=== PATIENT | male | born 1970 | race Caucasian/White ===

== ENCOUNTER 2020-03-17 14:27 | Emergency (ER) | payer OTHER, SELFPAY ==
[2020-03-17 15:14] VITALS: BP 120/78; PULSE 88; RESP 18; TEMP 37.4; O2SAT 98; BMI 31.5
--- NOTE | 2020-03-17 16:18 | PC.NURSE ---
covid swab performed
--- NOTE | 2020-03-17 16:22 | ED_ITS ---
HPI - General Adult General Chief complaint: General Medical Stated complaint: flu symptoms Time Seen by Provider: 03/17/20 15:18 Source: patient Mode of arrival: ambulatory History of Present Illness HPI narrative: 49-year-old male with a past medical history of anxiety, arthritis, depression, DM, hyperlipidemia, HTN presenting to the ED complaining of myalgias/fatigue, chills, and mild headache x a couple days. Reports was in contact with COVID-19 positive friend. Denies cough, fever, chest pain, shortness of breath, recent travel Onset (ago): day(s) Related Data Allergies Allergy/AdvReac Type Severity Reaction Status Date / Time No Known Allergies Allergy Unverified 11/05/19 19:00 [No Known Allergies*] Review of Systems Review of Systems: Constitutional: No Weight loss, No Fever, + Chills, +fatigue ENT/Mouth: No Sinus Pain, No Hoarseness, No sore throat, No Swallowing Difficulty Cardiovascular: No Chest Pain, No SOB Respiratory: No Cough, No Sputum, No Wheezing Gastrointestinal: No Nausea, No Vomiting, No Diarrhea, No Abdominal pain Musculoskeletal: No joint pain, + Myalgias, No Joint Swelling Skin: No Skin Lesions, No rash Yes all other systems are reviewed and are negative PMFSH Past Medical History Attestation statement: The following information was validated with the patient. Medical History (Updated 03/17/20 @ 16:51 by MOIHNI Baptiste) Anxiety Arthritis Depression Diabetes High cholesterol High cholesterol HTN (hypertension) Surgical History (Updated 03/17/20 @ 15:17 by Chacha Rush) History of appendectomy Social History Social History Alcohol intake: never Smoking Status: Current every day smoker Use of substances other than those prescribed or required for medical reasons: No Advance Directives: No Advance Directives Information Provided: Yes Physical Exam Vital Signs: Vital Signs: Last Vital Signs Temp 99.4 F 03/17/20 15:14 Pulse 88 03/17/20 15:14 Resp 18 03/17/20 15:14 BP 120/78 03/17/20 15:14 Pulse Ox 98 03/17/20 15:14 Body Mass Index 31.5 Const: General: cooperative, healthy appearing, comfortable and no acute distress Orientation/consciousness: patient oriented x3 Limitations: no limitations HENMT: Head: Yes normal to inspection Ears: hearing grossly normal bilaterally General nose exam: Normal external nose present Face and sinus: Yes normal facial exam Eyes: General: appearance normal, both eyes and all related structures EOM: EOMs intact bilaterally Neck: Neck: Yes normal visual inspection and Yes no meningeal signs Resp: Effort & Inspection: normal respiratory effort, no stridor and not tachypneic Cardio: Rate: regular rate GI: Inspection: Yes normal to inspection Skin: Rashes: no rashes Wounds: no wounds Neuro: General: patient oriented x3 and no meningeal signs Gait exam (Neuro): Normal gait present Extrem: General: Yes normal to inspection Course Course Course Narrative: COVID-19 positive Medical Decision Making MDM Narrative Medical decision making narrative: On exam a low-grade temp 99.4?, NAD/nontoxic appearing. Concern for viral syndrome/COVID-19. Low concern for pneumonia/ACS/PE Plan: COVID-19 testing Lab Data Labs: Lab Results 03/17/20 Range/Units 16:11 COVID-19 (DANIEL) Positive A (Negative) COVID-19 Clin Com See Note Discharge Plan Discharge Clinical Impression: COVID-19 Patient Disposition: Home, Self-Care Instructions: COVID-19 (Coronavirus Disease 2019) (ED) Additional Instructions: You have COVID-19. You need to stay self isolate for 10-14 days. Stay hydrated at home. If he develops any shortness of breath, chest discomfort, or fever unresolved with medications at home return to the ED Please continue to follow cold instructions and wash your hands frequently. You may take Tylenol as directed on the bottle for pain or fever. CDC Guidelines for home isolation: - Stay away from others - WEAR A MASK if you are sick AND STAY HOME - Cover your mouth and nose with a tissue when you cough or sneeze. Dispose of tissues in a lined trash can and wash your hands immediately with soap and water for at least 20 seconds. If soap and water are not available, clean hands with alcohol-based hand hot plate plywood press laborer that contains at least 60% alcohol. - Clean your hands often with soap and water for at least 20 seconds - Avoid touching your eyes, nose and mouth with unwashed hands - Do not share dishes, drinking glasses, cups, eating utensils, towels, or bedding with other people in your home. After using these items, wash them thoroughly with soap and water or put in the pharmacy operations specialist. - Clean high-touch surfaces in your isolation area ( sick room and bathroom) every day; let a caregiver clean and disinfect high-touch surfaces in other areas of the home. Clean the area or item with soap and water or another detergent if it is dirty. Then, use a household disinfectant. - Limit contact with pets and animals: If you must care for a pet, wash your hands before and after interacting with them) Rachel BOWMANID-19. Debe permanecer aislado deb 10 a 14 d?as. Mantente hidratado en casa. Si presenta dificultad para respirar, malestar en el pecho o fiebre sin resolver con medicamentos en casa, regrese al servicio de urgencias. Contin?e siguiendo las instrucciones en fr?o y l?vese las swetha con frecuencia. Puede brenton Tylenol allison se indica en el frasco para el dolor o la fiebre. [place] de los CDC para el aislamiento en el hogar: - Mantente alejado de los dem?s - USE KENNY M?SCARA si est? enfermo Y QUEDE EN CASA - C?brase la boca y la nariz con un pa?uelo cuando tosa o estornude. Deseche los pa?uelos desechables en un bote de basura forrado y l?vese las swetha inmediatamente con agua y jab?n deb al menos 20 segundos. Si no dispone de agua y jab?n, l?vese las swetha con un desinfectante para swetha a base de alcohol que contenga al menos un 60% de alcohol. - L?vese las swetha con frecuencia con agua y jab?n deb al menos 20 segundos - Evite tocarse los ojos, la nariz y la boca con las swetha sin dejuan - No comparta platos, vasos, tazas, cubiertos, toallas o ropa de cama con otras personas en gill hogar. Despu?s de usar estos art?culos, l?velos selvin con agua y jab?n o p?ngalos en el lavavajillas. - Limpie las superficies de alto contacto en gill ?adolfo de aislamiento ( habitaci?n de enfermo y ba?o) todos los d?as; deje que un cuidador limpie y desinfecte las superficies de alto contacto en otras ?reas de la casa. Limpie el ?adolfo o el art?culo con agua y jab?n u otro detergente si est? sucio. Luego, use un desinfectante dom?stico. - Limite el contacto con mascotas y animales: si debe cuidar a kenny mascota, l?vese las swetha antes y despu?s de interactuar con ellos) Referrals: [facility] [Primary Care Provider] - 2 days Print Language: Citizen Of [place]
[2020-03-17 16:33] LABS: COVID-19 Test Positive (Negative); IDNOW Serial# 9DD0AD1C
== END 2020-03-17 17:08 | disposition home or self-care (01) ==
PROVIDERS: Physician Assistant; Emergency Provider Emergency Medicine
DX: U07.1 COVID-19 (principal); E11.9 Type 2 diabetes mellitus without complications; I10 Essential (primary) hypertension; F17.200 Nicotine dependence, unspecified, uncomplicated
CPT/HCPCS: 36415; 87635; 99283

== ENCOUNTER 2020-05-26 17:33 | Emergency (ER) | payer OTHER, SELFPAY ==
--- NOTE | ~2020-05-26 | MR_ITS ---
EXAMINATION: MR BRAIN WITHOUT CONTRAST CLINICAL INFORMATION: Dizziness COMPARISON: Concurrently performed CT head. TECHNIQUE: MRI of the brain was obtained using routine sequences without contrast. FINDINGS: No areas of abnormally restricted diffusion within the brain parenchyma to suggest acute or subacute ischemia. Single focus of left frontal subcortical white matter T2 prolongation statistically related to microangiopathic gliosis. No transcortical infarcts. No pathological magnetic susceptibility artifact is demonstrated. Suspect a developmental venous anomaly within the right frontal lobe as seen on series 5, images 19 -- 20. There is no intracranial mass, mass effect, or shift of midline structures. No abnormal extra axial fluid collection. Ventricular system normal in size proportionate to the subarachnoid spaces, without evidence of hydrocephalus. Mild generalized brain parenchymal volume loss. Posterior fossa structures are normal. The craniocervical junction is normal. Midline structures including the posterior pituitary bright spot are normal. The intracranial vascular flow voids including the major dural venous sinuses are preserved. Mastoid air cells are clear. Sinus mucosal thickening present within the bilateral maxillary sinuses, ethmoid air cells, right sphenoid chamber and right frontal sinus. Globes and orbits unremarkable. MR/MR head/brain wo con IMPRESSION: * No acute or subacute intracranial pathology. * Single focus of T2 prolongation within the left frontal subcortical white matter statistically relates to a chronic small vessel ischemic insult * Query development of venous anomaly, right frontal lobe.
--- NOTE | ~2020-05-26 | XR_ITS ---
EXAMINATION: XR CHEST CLINICAL INFORMATION: Dizziness COMPARISON: Chest x-ray 10/13/2018 TECHNIQUE: Frontal view of the chest was obtained. FINDINGS: Cardiac silhouette is normal in size. The lungs are well aerated. There is no lobar consolidation. No pleural effusion or pneumothorax. No gross osseous abnormality. XR/XR chest 1V IMPRESSION: No acute pulmonary pathology.
--- NOTE | ~2020-05-26 | CT_ITS ---
EXAMINATION: CT HEAD WITHOUT CONTRAST CLINICAL INFORMATION: Dizziness COMPARISON: Head CT 09/29/2018 TECHNIQUE: Contiguous axial imaging was performed from the skull base to vertex without intravenous administration of contrast. This CT examination was performed using dose optimization techniques as appropriate, variously including the following: *Automated exposure control *Adjustment of mA and/or kV according to patient size (this includes techniques or standardized protocols for targeted exams where dose is matched to indication/reason for exam; i.e. extremities or head) *Use of iterative reconstruction technique DLP: 872 mGy-cm FINDINGS: There is no evidence of acute intracranial hemorrhage or territorial infarction. No abnormal mass effect or midline shift is seen. Monae to white matter differentiation is well preserved. No extra-axial fluid collections are identified. The ventricles are normal in size. There is no abnormal attenuation within the brain parenchyma. The osseous structures and soft tissues are normal. Polypoid mucosal disease of the right maxillary sinus with mild mucosal thickening of the left maxillary sinus. Mild mucosal thickening of the sphenoid sinus is also noted. Mastoid air cells are well aerated. CT/CT head/brain wo con IMPRESSION: 1. No acute intracranial pathology. 2. Sinus disease.
[2020-05-26 18:17] VITALS: BP 120/88; PULSE 62; RESP 18; TEMP 36.8; O2SAT 97; BMI 33.3
--- NOTE | 2020-05-26 18:20 | ECG_ITS ---
Test Reason : DIZZINESS Blood Pressure : / mmHG Vent. Rate : 077 BPM Atrial Rate : 077 BPM P-R Int : 170 ms QRS Dur : 098 ms QT Int : 346 ms P-R-T Axes : 056 -38 -09 degrees QTc Int : 391 ms Normal sinus rhythm Left axis deviation Septal infarct , age undetermined T inversion lateral leads When compared with EKG of 13 oct 2018, T inversion slightly more prominent Referred By: Otilio Levine Electronically Signed By:DEMETRA GRIMALDO
--- NOTE | 2020-05-26 18:23 | ED_ITS ---
HPI - Dizziness General Chief Complaint: Dizziness Stated Complaint: DIZZINESS X 7 HOURS Time Seen by Provider: 05/26/20 18:04 Source: patient, EMS and supervisor color paste mixing Mode of arrival: EMS Limitations: no limitations History of Present Illness HPI Narrative: 50 years old male came in with EMS for evaluation of dizziness and problem with his vision. 50-year-old male woke up this morning with generalized weakness, patient is feeling generally weak, and dizzy very unbalanced when E ambulate, patient also stated that his vision has been blurry since early this morning. Patient stated the symptoms started earlier today more than 7-8 hours ago. Patient declined using any anticoagulation. No weakness or numbness. Related Data Allergies Allergy/AdvReac Type Severity Reaction Status Date / Time No Known Allergies Allergy Unverified 11/05/19 19:00 [No Known Allergies*] Review of Systems Review of Systems: All other systems are reviewed and are negative Constitutional: Reports as per HPI and Reports no additional constitutional complaints Eyes: Reports as per HPI and Reports no additional eye complaints Reports system reviewed and no additional complaints, except as documented Cardiovascular: Reports as per HPI and Reports no additional cardiovascular complaints Respiratory: Reports as per HPI and Reports no additional respiratory complaints Gastrointestinal: Reports as per HPI and Reports no additional gastrointestinal complaints Genitourinary: Reports no additional female genitourinary complaints Musculoskeletal: Reports no additional musculoskeletal complaints Skin/Breast: Reports system reviewed and no additional complaints, except as doc u Psychiatric: Reports no additional psychiatric complaints Endocrine: Reports no additional endocrine complaints Hematologic/Lymphatic: Reports no additional hematologic/lymphatic complaints Allergic/Immunologic: Reports no additional allergic/immunologic complaints Reports system reviewed and no additional complaints, except as documented and Reports Abnormal speech present [facility] Past Medical History Medical History Anxiety Arthritis Depression Diabetes High cholesterol High cholesterol HTN (hypertension) Surgical History History of appendectomy Social History Social History Alcohol intake: unknown Smoking Status: Unknown if ever smoked Use of substances other than those prescribed or required for medical reasons: No Advance Directives: No Advance Directives Information Provided: No Physical Exam Vital Signs: Vital Signs: Last Vital Signs Temp 97.3 F 05/26/20 21:50 Pulse 76 04/08/21 21:50 Resp 16 05/26/20 21:50 BP 102/52 L 05/26/20 21:50 Pulse Ox 99 05/26/20 21:50 Body Mass Index 33.3 Vital signs have been reviewed as appeared to be correct. Blood pressure normal. Heart rate normal. Respiration rate normal. Temperature normal. Oxygen saturation normal. Appearance: Alert. Oriented X3. No acute distress. Head: Normal external exam. Normocephalic. Atraumatic. No Baez signs noted. No raccoon eyes noted Eyes: PERRLA. EOMI. Conjunctiva and sclera normal. Eyelids normal. ENT: TM's Normal. Pharynx normal. Uvula midline. Moist mucous membranes. No trismus noted. No drooling noted. No muffled voice noted. Neck: Normal inspection. Neck supple. FROM. No adenopathy. Thyroid Normal. No meningeal signs. No neck mass noted. CVS: Normal heart rate and rhythm. Heart sound normal. No murmurs noted. Pulses normal throughout. Respiratory: No respiratory distress. Painless inspiration. Breath sounds normal. No wheezes/rales/rhonchi noted. Chest nontender. No accessory muscle usage noted or decreased air movement noted. Abdomen: Soft and nontender. Bowel sounds normal in all 4 quadrants. No distention noted. No organomegaly noted. No visible injury noted. Back: No CVA tenderness. Full range of motion noted. Skin: Skin warm and dry. Normal skin color. Normal skin turgor. No rashes/lesions/lacerations noted. Extremities: No lower extremity edema. Extremities exhibit normal range of motion. Extremities nontender. Neuro: Oriented X 3. No motor deficit. No sensory deficit. Reflexes normal. NIH Stroke Scale Level of Consciousness: Alert Level of Consciousness Questions: Answers both questions correctly Level of Consciousness Commands: Performs both tasks correctly Best Gaze: Normal Visual: No visual loss Facial Palsy: Normal Motor Arm (Right): No drift Motor Arm (Left): No drift Motor Leg (Right): No drift Motor Leg (Left): No drift Limb Ataxia: Absent Sensory: Normal Best Language: No aphasia Dysarthia: Normal Extinction and Inattention: No abnormality Score: 0 Course Course Course Narrative: Assessment and plan. 50-year-old male came in after having dizziness spells problems, neuro exam is intact, NIH stroke scale is 0, neuro exam is unremarkable, had a head CT/MRI of the brain which showed no acute stroke. Patient feels better with Antivert and IV fluids. MDM - Dizziness Lab Data Attestation: I reviewed the patient's lab results. Result diagrams: 05/26/20 18:55 05/26/20 18:55 Labs: Lab Results 05/26/20 05/26/20 05/26/20 Range/Units 18:55 18:55 18:55 WBC 15.9 H (4.8-10.8) X10*3/uL RBC 4.68 (4.60-5.80) X10*6/uL Hgb 15.3 (14.0-18.0) g/dl Hct 44.3 (42-52) % MCV 94.7 (80-98) fL MCH 32.7 (27.0-33.0) pg MCHC 34.5 (31.0-36.0) g/dl RDW 12.9 (11.0-16.0) % Plt Count 203 (160-400) X10*3/uL MPV 11.4 (9.4-12.4) fL Immature Gran % (Auto) 0.4 (0.0-0.4) % Neut % (Auto) 63.9 (45-73) % Lymph % (Auto) 25.9 (20-40) % Ponce % (Auto) 8.5 (2-11) % Eos % (Auto) 0.8 (0-4) % Baso % (Auto) 0.5 (0-2) % Lymph # (Auto) 4.1 (1.2-4.9) X10*3/uL Ponce # (Auto) 1.4 H (0.1-1.2) X10*3/uL Eos # (Auto) 0.1 (0.0-0.4) X10*3/uL Baso # (Auto) 0.1 (0.0-0.2) X10*3/uL Abs Immat Gran (auto) 0.06 H (0.00-0.03) X10*3/uL Absolute Neuts (auto) 10.2 H (2.0-8.3) X10*3/uL Absolute Nucleated RBC 0.000 (0.0-0.012) X10*3/uL Nucleated RBC % (auto) 0.0 (0.0-0.2) /100WBC Sodium 139 (135-145) mmol/L Potassium 3.3 (3.3-5.1) mmol/L Chloride 102 (96-108) mmol/L Carbon Dioxide 27 (22-29) mmol/L Anion Gap 13 (12-20) BUN 23 H (9-16) mg/dL Creatinine 1.34 (0.5-1.4) mg/dL Estim Creat Clear Calc 69.0 Estimated GFR 57 Random Glucose 85 (60-115) mg/dL Calcium 9.2 (8.4-10.2) mg/dL Total Bilirubin 0.7 (0.0-1.0) mg/dL Direct Bilirubin 0.3 (0.0-0.5) mg/dL AST 30 (5-37) U/L ALT 56 H (0-40) U/L Alkaline Phosphatase 128 H (39-117) U/L Troponin I High Sens < 3.5 (<3.5-35.0) ng/L Total Protein 7.5 (6.5-8.0) g/dL Albumin 4.2 (3.5-5.0) g/dL Lipase 11 (8-78) U/L Imaging Data Chest x-ray: Radiologist's impression: No acute pulmonary pathology. CT scan - head: Radiologist's impression: Intracranial pathology. MRI - head: Radiologist's impression: * No acute or subacute intracranial pathology. * Single focus of T2 prolongation within the left frontal subcortical white matter statistically relates to a chronic small vessel ischemic insult * Query development of venous anomaly, right frontal lobe. Discharge Plan Discharge Clinical Impression: Vertigo Patient Disposition: Home, Self-Care Instructions: Vertigo (ED) Referrals: [facility] [Primary Care Provider] - 2 days
[2020-05-26 18:59] LABS: MANUAL DIFF FLAG NO
[2020-05-26 19:02] LABS: Basophils Absolute Auto 0.1 X10*3/uL (0.0-0.2); Basophils Percent Auto 0.5 % (0-2); Eosinophils Absolute Auto 0.1 X10*3/uL (0.0-0.4); Eosinophils Percent Auto 0.8 % (0-4); Hematocrit 44.3 % (42-52); Hemoglobin 15.3 g/dl (14.0-18.0); Imm Gran Abs Auto 0.06 X10*3/uL (0.00-0.03); Imm Gran Pct Auto 0.4 % (0.0-0.4); Lymphocytes Absolute Auto 4.1 X10*3/uL (1.2-4.9); Lymphocytes Percent Auto 25.9 % (20-40); Mean Corpuscular HGB Conc 34.5 g/dl (31.0-36.0); Mean Corpuscular Hemoglobin 32.7 pg (27.0-33.0); Mean Corpuscular Volume 94.7 fL (80-98); Mean Platelet Volume 11.4 fL (9.4-12.4); Monocytes Absolute Auto 1.4 X10*3/uL (0.1-1.2); Monocytes Percent Auto 8.5 % (2-11); Neutrophils Absolute Auto 10.2 X10*3/uL (2.0-8.3); Neutrophils Percent Auto 63.9 % (45-73); Platelet Count 203 X10*3/uL (160-400); Red Blood Count 4.68 X10*6/uL (4.60-5.80); Red Cell Distribution Width 12.9 % (11.0-16.0); White Blood Count 15.9 X10*3/uL (4.8-10.8)
[2020-05-26 19:25] LABS: Alanine Aminotransferase 56 U/L (0-40); Albumin Level 4.2 g/dL (3.5-5.0); Alkaline Phosphatase 128 U/L (39-117); Anion Gap 13 (12-20); Aspartate Amino Transferase 30 U/L (5-37); Bilirubin Direct 0.3 mg/dL (0.0-0.5); Bilirubin Total 0.7 mg/dL (0.0-1.0); Blood Urea Nitrogen 23 mg/dL (9-16); Calcium 9.2 mg/dL (8.4-10.2); Carbon Dioxide 27 mmol/L (22-29); Chloride 102 mmol/L (96-108); Estimated Glomerular Filt Rate 57; Glucose Random 85 mg/dL (60-115); Lipase 11 U/L (8-78); Potassium 3.3 mmol/L (3.3-5.1); Sodium 139 mmol/L (135-145); Total Protein 7.5 g/dL (6.5-8.0)
[2020-05-26 19:31] LABS: Troponin-I High Sensitivity < 3.5 ng/L (<3.5-35.0)
[2020-05-26 21:50] VITALS: BP 102/52; PULSE 76; RESP 16; TEMP 36.3; O2SAT 99
--- NOTE | 2020-05-26 22:02 | PC.NURSE ---
PT DENIES ANY DIZZINESS, NAUSEA, ABD PAIN AT THIS TIME. RESTING COMFORTABLY IN HALLWAY STRETCHER. AWATIING MRI AND CT SCAN RESULTS
[2020-05-27 00:50] VITALS: BP 108/72; PULSE 72; RESP 18; O2SAT 97
== END 2020-05-27 00:55 | disposition home or self-care (01) ==
PROVIDERS: Emergency Provider Emergency Medicine
DX: R42 Dizziness and giddiness (principal); E11.9 Type 2 diabetes mellitus without complications; I10 Essential (primary) hypertension
CPT/HCPCS: 36415; 70450; 70551; 71045; 80048; 80076; 83690; 84484; 85025; 93005; 99284

== ENCOUNTER → 2020-07-20 07:36 | Outpatient (BNVA) | payer OTHER, SELFPAY | PROVIDERS: PCP Nurse Practitioner Family; Visit Provider Nurse Practitioner Gerontology | DX: E11.42 Type 2 diabetes mellitus with diabetic polyneuropathy (principal); E78.00 Pure hypercholesterolemia, unspecified; I10 Essential (primary) hypertension; Z79.4 Long term (current) use of insulin | CPT/HCPCS: 82947; 99212 ==

== ENCOUNTER 2020-08-17 15:34 | Outpatient (REF) | payer OTHER, SELFPAY ==
--- NOTE | ~2020-08-17 | XR_ITS ---
EXAMINATION: XR FOOT, RIGHT CLINICAL INFORMATION: Great toe injury. COMPARISON: None TECHNIQUE: AP, lateral, and oblique views of the right foot. FINDINGS: There is no evidence of acute fracture or dislocation of the right foot. There is a small bony density about the lateral aspect base of the 1st proximal phalanx but which appears to be sequela of previous trauma. Old healed fracture deformities seen involving the 3rd proximal phalanx. There is subchondral cyst formation seen about the 1st interphalangeal joint medially. There are calcaneal spurs at sites of insertion of Achilles and plantar tendons. XR/XR foot RT min 3V IMPRESSION: No acute right foot fracture appreciated. Posttraumatic changes, as described.
== END 2020-08-17 15:35 | disposition home or self-care (01) ==
LOC: HO.XRAY 15:34
PROVIDERS: PCP Nurse Practitioner Family; Referring Provider Nurse Practitioner Family; Visit Provider Emergency Medicine
DX: S99.921A Unspecified injury of right foot, initial encounter (principal)
CPT/HCPCS: 73630

== ENCOUNTER 2020-08-20 14:40 | Emergency (ER) | payer OTHER, SELFPAY ==
--- NOTE | ~2020-08-20 | CT_ITS ---
EXAMINATION: CT HEAD WITHOUT CONTRAST CLINICAL INFORMATION: Elevated blood pressure and headache since 8:00 AM COMPARISON: Head CT on 05/26/2020 TECHNIQUE: Contiguous axial imaging was performed from the skull base to vertex without intravenous administration of contrast. This CT examination was performed using dose optimization techniques as appropriate, variously including the following: *Automated exposure control *Adjustment of mA and/or kV according to patient size (this includes techniques or standardized protocols for targeted exams where dose is matched to indication/reason for exam; i.e. extremities or head) *Use of iterative reconstruction technique DLP: 814 mGy-cm FINDINGS: There is no evidence of acute intracranial hemorrhage or territorial infarction. No abnormal mass effect or midline shift is seen. Monae to white matter differentiation is well preserved. No extra-axial fluid collections are identified. The ventricles are normal in size. There is no abnormal attenuation within the brain parenchyma. The osseous structures and soft tissues are normal. There is mucosal thickening in the maxillary and ethmoid sinuses. CT/CT head/brain wo con IMPRESSION: No acute intracranial pathology. Mild sinus disease.
--- NOTE | ~2020-08-20 | XR_ITS ---
EXAMINATION: XR CHEST CLINICAL INFORMATION: Chest pain COMPARISON: Chest x-ray on 05/26/2020 TECHNIQUE: Frontal view of the chest was obtained. FINDINGS: No significant abnormality is noted involving the heart, lungs, mediastinum, bony thorax or soft tissues. XR/XR chest 1V IMPRESSION: Unremarkable examination.
[2020-08-20 14:45] VITALS: BP 123/80; BP 127/89; PULSE 85; PULSE 86; RESP 19; TEMP 37.1; O2SAT 100; BMI 28.3
[2020-08-20 14:49] LABS: Glucose, Whole Blood 199 mg/dL (60-115)
--- NOTE | 2020-08-20 14:51 | ECG_ITS ---
Test Reason : CP Blood Pressure : / mmHG Vent. Rate : 084 BPM Atrial Rate : 084 BPM P-R Int : 134 ms QRS Dur : 090 ms QT Int : 378 ms P-R-T Axes : 038 -33 042 degrees QTc Int : 446 ms Normal sinus rhythm Left axis deviation Abnormal ECG When compared to the previous EKG of No significant changes seen Referred By: Generic ED Physician Electronically Signed By:JOHN MARTIN MD
[2020-08-20 14:59] LABS: MANUAL DIFF FLAG NO
[2020-08-20 15:00] VITALS: PULSE 80
[2020-08-20 15:01] LABS: Basophils Absolute Auto 0.1 X10*3/uL (0.0-0.2); Basophils Percent Auto 1.2 % (0-2); Eosinophils Absolute Auto 0.2 X10*3/uL (0.0-0.4); Eosinophils Percent Auto 1.9 % (0-4); Hematocrit 45.3 % (42-52); Hemoglobin 16.2 g/dl (14.0-18.0); Imm Gran Abs Auto 0.02 X10*3/uL (0.00-0.03); Imm Gran Pct Auto 0.2 % (0.0-0.4); Lymphocytes Absolute Auto 4.9 X10*3/uL (1.2-4.9); Lymphocytes Percent Auto 42.8 % (20-40); Mean Corpuscular HGB Conc 35.8 g/dl (31.0-36.0); Mean Corpuscular Hemoglobin 32.9 pg (27.0-33.0); Mean Corpuscular Volume 91.9 fL (80-98); Mean Platelet Volume 10.9 fL (9.4-12.4); Monocytes Absolute Auto 0.8 X10*3/uL (0.1-1.2); Monocytes Percent Auto 6.8 % (2-11); Neutrophils Absolute Auto 5.4 X10*3/uL (2.0-8.3); Neutrophils Percent Auto 47.1 % (45-73); Platelet Count 209 X10*3/uL (160-400); Red Blood Count 4.93 X10*6/uL (4.60-5.80); Red Cell Distribution Width 12.4 % (11.0-16.0); White Blood Count 11.5 X10*3/uL (4.8-10.8)
[2020-08-20 15:24] LABS: Alanine Aminotransferase 36 U/L (0-40); Albumin Level 4.4 g/dL (3.5-5.0); Alkaline Phosphatase 110 U/L (39-117); Anion Gap 16 (12-20); Aspartate Amino Transferase 26 U/L (5-37); Blood Urea Nitrogen 13 mg/dL (9-16); Calcium 9.8 mg/dL (8.4-10.2); Carbon Dioxide 22 mmol/L (22-29); Chloride 103 mmol/L (96-108); Creatinine Clr Calc Pharmacy 119.6; Estimated Glomerular Filt Rate > 60; Glucose Random 208 mg/dL (60-115); Magnesium 1.8 mg/dL (1.6-2.6); Potassium 4.2 mmol/L (3.3-5.1); Sodium 137 mmol/L (135-145); Total Protein 7.8 g/dL (6.5-8.0)
[2020-08-20 15:29] LABS: COVID-19 Test Negative (Negative)
[2020-08-20 15:30] LABS: Troponin-I High Sensitivity < 3.5 ng/L (<3.5-35.0)
--- NOTE | 2020-08-20 15:32 | ED_ITS ---
HPI - Chest Pain General Chief Complaint: Chest Pain Stated Complaint: CHEST PAIN Time Seen by Provider: 08/20/20 14:54 Source: patient and EMS Mode of arrival: EMS Limitations: language barrier ( [place]itanian-speaking) History of Present Illness HPI narrative: 50-year-old male who is [place]ian-speaking with a past medical history of myocardial infarction although had a normal echocardiogram on 03/05 normal Lv fn, stress test 04/24/15 which was negative and a cardiac catheterization on 01/2013 which were normal, hypertension, hyperlipidemia, diabetes, anxiety, depression and sleep apnea presenting to the ED with compl aints of left-sided/midsternal chest pain that started at approximately 07:00 this morning has been constant with associated feeling like his heart is racing intermittently and left arm trembling. He reports that he use some cocaine last night. Although reports he does not usually use cocaine and denies any other drug usage or alcohol usage. He reports he also had a headache and some blurry vision this morning when his chest pain started and he took his blood pressure and his blood pressure was in the 180s/100's. then he took his blood pressure medication and retook his blood pressure shortly after and his blood pressure started to come down. Although he reported that he continued to have the chest pain despite taking 2 nitros 5 minutes apart therefore he called EMS. When EMS arrived they gave him 1 nitro and 325 mg of aspirin and he reports no symptomatic relief. He denies any headache at this time, changes in vision, neck pain/stiffness / injury, jaw pain, nausea / vomiting, dyspnea on exertion, abdominal pain, back pain, radiation of the chest pain, lower extremity edema or any other symptoms complaints or concerns at this time. MD complaint: chest pain Pertinent past history: prior [place] and other ( Cocaine usage last night) Onset (ago): hour(s) ( constant since a.m. this morning) Timing of current episode: constant and still present Prior episodes: Yes Onset: other ( cannot recall) Pain location: substernal and left chest Pain radiation: none Severity: moderate Quality: aching Relieving factors: nothing Exacerbating factors: palpation Associated symptoms: palpitations and other ( left arm trembling) Treatment prior to arrival: aspirin and nitroglycerin Related Data Home Medications Medication Instructions Recorded Confirmed aripiprazole 15 mg tablet 15 mg PO DAILY 07/20/20 08/20/20 aspirin 81 mg tablet,delayed 81 mg PO DAILY 07/20/20 08/20/20 release bupropion HCl 300 mg 24 hr tablet, 300 mg PO BEDTIME 07/20/20 08/20/20 extended release gabapentin 400 mg capsule 400 mg PO TID 07/20/20 08/20/20 lancets 33 gauge #100 07/20/20 08/20/20 metformin 1,000 mg tablet 1,000 mg PO BID 07/20/20 08/20/20 omeprazole 20 mg capsule,delayed 20 mg PO DAILY 07/20/20 08/20/20 release pen needle, diabetic 32 gauge x #50 07/20/20 08/20/20 prazosin 2 mg capsule 2 mg PO BEDTIME 07/20/20 08/20/20 trazodone 100 mg tablet 100 mg PO BEDTIME 07/20/20 08/20/20 venlafaxine 150 mg 150 mg PO DAILY 07/20/20 08/20/20 capsule,extended release 24 hr Previous Rx's Medication Instructions Recorded blood sugar diagnostic #150 07/20/20 dulaglutide 0.75 mg/0.5 mL 0.75 mg SUBCUT QWEEK #2 ml 07/20/20 subcutaneous pen injector lancets 33 gauge #200 ea 07/20/20 insulin aspart U-100 100 unit/mL 15 unit SUBCUT TID #15 ml 08/10/20 (3 mL) subcutaneous pen insulin degludec 100 unit/mL (3 60 unit SUBCUT QPM 30 Days #30 ml 08/10/20 mL) subcutaneous pen Allergies Allergy/AdvReac Type Severity Reaction Status Date / Time No Known Allergies Allergy Unverified 07/20/20 08:30 [No Known Allergies*] Review of Systems Review of Systems: Constitutional : No Weight loss, No Fever, No Chills, No Night Sweats, No Fatigue, No Malaise ENT/Mouth : No Hearing loss, No Ear Pain, No Nasal Congestion, No Sinus Pain, No Hoarseness, No sore throat, No Rhinorrhea, No Swallowing Difficulty Eyes: No Eye Pain, No Swelling, No Redness, No Foreign Body, No Discharge, No Vision Changes Cardiovascular : positive chest pain, positive palpitations, No SOB, no Dyspne a on Exertion, No Orthopnea, No Edema, No extremity swelling Respiratory : No Cough, No Sputum, No Wheezing, No Dyspnea Gastrointestinal : No Nausea, No Vomiting, No Diarrhea, No abdominal Pain, No He matochezia, No Melena Genitourinary : No irregular bleeding, No Dysuria, No Urinary Frequency, No He maturia, No Urinary Incontinence, No Urgency, No Flank Pain, No Urinary Flow Changes, No Hesitancy Musculoskeletal : No joint pain, No Myalgias, No Joint Swelling Skin : No Skin Lesions, No rash Neuro : positive headache, No Weakness, No Numbness, No Paresthesias, No Loss of Consciousness, No Dizziness Psych : No Anxiety/Panic, No Depression, No SI/HI/AH/VH Heme/Lymph: No Bruising, No Bleeding,No Lymphadenopathy Endocrine : No Polyuria, No Polydipsia, No Temperature Intolerance Yes all other systems are reviewed and are negative [facility] Past Medical History Attestation statement: The following information was validated with the patient. Medical History Anxiety Arthritis Depression Diabetes High cholesterol High cholesterol History of myocardial infarction HTN (hypertension) Normal echocardiogram Surgical History H/O cardiac catheterization History of appendectomy Hx of foot surgery Family History Family History Mother Alzheimer disease HTN (hypertension) Father Old age Brother Diabetes mellitus Maternal Grandmother Diabetes mellitus Heart disease Social History Social History Household Members: Other Household Members Other:: Roommate Housing: Apartment Alcohol intake: current Alcohol intake frequency: 0-2 drinks per day Patient Tobacco Use Status: Current everyday Tobacco user Smoked in Last 30 Days: Yes Use of substances other than those prescribed or required for medical reasons: Yes Substance Use Type: Crack/Cocaine and Other Substance Use Frequency: Socially Any prior treatment program specific to substance use: No Advance Directives: No Advance Directives Information Provided: Yes Physical Exam Vital Signs: Vital Signs: Last Vital Signs Temp 98.3 F 08/20/20 15:52 Pulse 80 08/20/20 15:52 Resp 18 08/20/20 15:52 BP 146/92 H 08/20/20 15:52 Pulse Ox 100 08/20/20 15:52 Body Mass Index 28.3 vital signs have been reviewed as normal and appeared to be correct. Blood pressure normal. Heart rate normal. Respiration rate normal. Temperature normal. Oxygen saturation normal. Appearance: Alert. Oriented X3. No acute distress. Head: Normal external exam. Normocephalic. Atraumatic. Eyes: PERRLA. EOMI. Conjunctiva and sclera normal. Eyelids normal. ENT: Pharynx normal. Uvula midline. Moist mucous membranes. Neck: Normal inspection. Neck supple. FROM. No adenopathy. Thyroid Normal. No meningeal signs. No neck mass noted. CVS: Normal heart rate and rhythm. Heart sound normal. Pulses normal throughout. No murmurs/rales/gallops. Respiratory: No respiratory distress. Painless inspiration. Breath sounds normal. No wheezes/rales/rhonchi noted. Chest nontender. No accessory muscle usage noted or decreased air movement noted. Abdomen: Soft and nontender. Bowel sounds normal in all 4 quadrants. No distention noted. No organomegaly noted. No visible injury noted. Back: No CVA tenderness. Full range of motion noted. No rashes/lesion/induration/fluctuance or signs of infection noted. Skin: Skin warm and dry. Normal skin color. Normal skin turgor. No rashes/lesions/lacerations noted. Extremities: No lower extremity edema. No calf tenderness. Extremities exhibit normal range of motion. Extremities nontender. Neuro: Oriented X 3. No motor deficit. No sensory deficit. Reflexes normal. Normal steady gait. No focal neuro deficits noted. Vascular: + radial pulses/+ 2 distal pedal pulses/+2 dorsalis pedis b/l. Normal cap refill. No cyanosis noted to upper extremity nails and lower extremity toes nails. Course Course Course Narrative: 14:55pm - 50-year-old male who is [place]ian-speaking with a past medical history of myocardial infarction although had a normal echocardiogram on 03/05 normal Lv fn, stress test 04/24/15 which was negative and a cardiac catheterization on 01/2013 which were normal, hypertension, hyperlipidemia, diabetes, anxiety, depression and sleep apnea presenting to the ED with complaints of left-sided/midsternal chest pain that started at approximately 07:00 this morning has been constant with associated feeling like his heart is racing intermittently and left arm trembling. He reports that he use some cocaine last night. Although reports he does not usually use cocaine and denies any other drug usage or alcohol usage. He reports he also had a headache and some blurry vision this morning when his chest pain started and he took his blood pressure and his blood pressure was in the 180s/100's. Plan: Labs, CXR, EKG, CT scan of brain without contrast then re-evaluate. Reevaluation(s) Reevaluation #1: - patient with an elevated white blood cell count 51540. random glucose 208. Otherwise all other labs within normal limits. Patient positive for cocaine negative for all other drugs. Negative for COVID. - EKG normal sinus rhythm with left axis deviation no acute ischemic changes are noted. - Chest x-ray negative for any acute processes. - CT scan of brain revealed mild sinus disease otherwise no other intracranial pathology noted. - Will repeat a 2nd troponin if negative delta patient can be safely discharged home. Time: 17:00 MDM - Chest Pain Medical Records Data Attestation: I reviewed the patient's medical records. Lab Data Attestation: I reviewed the patient's lab results. Result diagrams: 08/20/20 14:55 08/20/20 14:55 Labs: Lab Results 08/20/20 08/20/20 08/20/20 Range/Units 14:45 14:54 14:55 WBC 11.5 H (4.8-10.8) X10*3/uL RBC 4.93 (4.60-5.80) X10*6/uL Hgb 16.2 (14.0-18.0) g/dl Hct 45.3 (42-52) % MCV 91.9 (80-98) fL MCH 32.9 (27.0-33.0) pg MCHC 35.8 (31.0-36.0) g/dl RDW 12.4 (11.0-16.0) % Plt Count 209 (160-400) X10*3/uL MPV 10.9 (9.4-12.4) fL Immature Gran % (Auto) 0.2 (0.0-0.4) % Neut % (Auto) 47.1 (45-73) % Lymph % (Auto) 42.8 H (20-40) % Parker % (Auto) 6.8 (2-11) % Eos % (Auto) 1.9 (0-4) % Baso % (Auto) 1.2 (0-2) % Lymph # (Auto) 4.9 (1.2-4.9) X10*3/uL Parker # (Auto) 0.8 (0.1-1.2) X10*3/uL Eos # (Auto) 0.2 (0.0-0.4) X10*3/uL Baso # (Auto) 0.1 (0.0-0.2) X10*3/uL Abs Immat Gran (auto) 0.02 (0.00-0.03) X10*3/uL Absolute Neuts (auto) 5.4 (2.0-8.3) X10*3/uL Absolute Nucleated RBC 0.000 (0.0-0.012) X10*3/uL Nucleated RBC % (auto) 0.0 (0.0-0.2) /100WBC Sodium (135-145) mmol/L Potassium (3.3-5.1) mmol/L Chloride (96-108) mmol/L Carbon Dioxide (22-29) mmol/L Anion Gap (12-20) BUN (9-16) mg/dL Creatinine (0.5-1.4) mg/dL Estim Creat Clear Calc Estimated GFR POC Glucose 199 H (60-115) mg/dL Random Glucose (60-115) mg/dL Calcium (8.4-10.2) mg/dL Magnesium (1.6-2.6) mg/dL Total Bilirubin (0.0-1.0) mg/dL AST (5-37) U/L ALT (0-40) U/L Alkaline Phosphatase (39-117) U/L Troponin I High Sens < 3.5 (<3.5-35.0) ng/L Total Protein (6.5-8.0) g/dL Albumin (3.5-5.0) g/dL Urine Opiates Screen (Not Detect) Ur Barbiturates Screen (Not Detect) Ur Phencyclidine Scrn (Not Detect) Ur Amphetamines Screen (Not Detect) U Benzodiazepines Scrn (Not Detect) Urine Cocaine Screen (Not Detect) U Marijuana (THC) Screen (Not Detect) COVID-19 (DANIEL) (Negative) COVID-19 Clin Com 08/20/20 08/20/20 08/20/20 Range/Units 14:55 15:04 15:31 WBC (4.8-10.8) X10*3/uL RBC (4.60-5.80) X10*6/uL Hgb (14.0-18.0) g/dl Hct (42-52) % MCV (80-98) fL MCH (27.0-33.0) pg MCHC (31.0-36.0) g/dl RDW (11.0-16.0) % Plt Count (160-400) X10*3/uL MPV (9.4-12.4) fL Immature Gran % (Auto) (0.0-0.4) % Neut % (Auto) (45-73) % Lymph % (Auto) (20-40) % Parker % (Auto) (2-11) % Eos % (Auto) (0-4) % Baso % (Auto) (0-2) % Lymph # (Auto) (1.2-4.9) X10*3/uL Parker # (Auto) (0.1-1.2) X10*3/uL Eos # (Auto) (0.0-0.4) X10*3/uL Baso # (Auto) (0.0-0.2) X10*3/uL Abs Immat Gran (auto) (0.00-0.03) X10*3/uL Absolute Neuts (auto) (2.0-8.3) X10*3/uL Absolute Nucleated RBC (0.0-0.012) X10*3/uL Nucleated RBC % (auto) (0.0-0.2) /100WBC Sodium 137 (135-145) mmol/L Potassium 4.2 D (3.3-5.1) mmol/L Chloride 103 (96-108) mmol/L Carbon Dioxide 22 (22-29) mmol/L Anion Gap 16 (12-20) BUN 13 (9-16) mg/dL Creatinine 0.84 (0.5-1.4) mg/dL Estim Creat Clear Calc 119.6 Estimated GFR > 60 POC Glucose (60-115) mg/dL Random Glucose 208 H D (60-115) mg/dL Calcium 9.8 D (8.4-10.2) mg/dL Magnesium 1.8 (1.6-2.6) mg/dL Total Bilirubin 1.0 (0.0-1.0) mg/dL AST 26 (5-37) U/L ALT 36 (0-40) U/L Alkaline Phosphatase 110 (39-117) U/L Troponin I High Sens (<3.5-35.0) ng/L Total Protein 7.8 (6.5-8.0) g/dL Albumin 4.4 (3.5-5.0) g/dL Urine Opiates Screen Not Detected (Not Detect) Ur Barbiturates Screen Not Detected (Not Detect) Ur Phencyclidine Scrn Not Detected (Not Detect) Ur Amphetamines Screen Not Detected (Not Detect) U Benzodiazepines Scrn Not Detected (Not Detect) Urine Cocaine Screen POSITIVE H (Not Detect) U Marijuana (THC) Screen Not Detected (Not Detect) COVID-19 (DANIEL) Negative (Negative) COVID-19 Clin Com See Note Imaging Data Chest x-ray: Attestation: I personally reviewed and interpreted this imaging study as follows: Radiologist's impression: FINDINGS: No significant abnormality is noted involving the heart, lungs, mediastinum, bony thorax or soft tissues. XR/XR chest 1V IMPRESSION: Unremarkable examination. CT scan - head: Attestation: I personally reviewed and interpreted this imaging study as follows: Radiologist's impression: FINDINGS: There is no evidence of acute intracranial hemorrhage or territorial infarction. No abnormal mass effect or midline shift is seen. Monae to white matter differentiation is well preserved. No extra-axial fluid collections are identified. The ventricles are normal in size. There is no abnormal attenuation within the brain parenchyma. The osseous structures and soft tissues are normal. There is mucosal thickening in the maxillary and ethmoid sinuses. CT/CT head/brain wo con IMPRESSION: No acute intracranial pathology. Mild sinus disease. ECG Data ECG #1: Attestation: I personally reviewed and interpreted this ECG as follows: ECG interpretation date: 08/20/20 ECG interpretation time: 14:49 Interpretation: Normal sinus rhythm with an trich rate of 84 with a left axis deviation normal QRS normal QT/ QTC interval. No acute ischemic changes are noted. Similar when compared to prior EKG 05/26/2020 Scores Heart Score History: -1- moderately suspicious ECG: -0- normal Age: -1- >45 - <65 Risk factory: -2- 3 or more risk factors or treated atherosclerosis Troponin: -0- < or = normal limit Score: 4 Risk: 16.6% Discharge Plan Discharge Clinical Impression: Atypical chest pain, Cocaine substance abuse Instructions: Chest Pain (ED), Cocaine Abuse (ED) Additional Instructions: It is very important that you do not use cocaine as this can cause you to have a heart attack. Please return if any new or worsening symptoms. Follow up with her primary care provider. If you are interested in detox please return and we can help you with this. Es muy importante que no consuma coca?na, ya que esto puede causar un ataque card?aco. Por favor, regrese si hay alg?n s?ntoma nuevo o que empeore. Cinthya un seguimiento con gill proveedor de atenci?n primaria. Si usted est? interesado en la desintoxicaci?n por favor vuelva y podemos ayudarle con esto. Prescriptions: No Action insulin aspart U-100 [Novolog Flexpen U-100 Insulin] 100 unit/mL (3 mL) insulin pen 15 unit subcut TID Qty: 15 RF: 3 insulin degludec 100 unit/mL (3 mL) insulin pen 60 unit subcut QPM 30 Days Qty: 30 RF: 1 bupropion HCl 300 mg tablet extended release 24 hr 300 mg PO BEDTIME RF: 0 aripiprazole 15 mg tablet 15 mg PO DAILY RF: 0 prazosin 2 mg capsule 2 mg PO BEDTIME RF: 0 omeprazole 20 mg capsule,delayed release(DR/EC) 20 mg PO DAILY RF: 0 trazodone 100 mg tablet 100 mg PO BEDTIME RF: 0 venlafaxine 150 mg capsule,extended release 24hr 150 mg PO DAILY RF: 0 gabapentin 400 mg capsule 400 mg PO TID RF: 0 (DME) pen needle, diabetic 32 gauge x 5/32 needle See Rx Instructions ea .ROUTE .MEDSUPPLY Qty: 50 RF: 0 (DME) lancets 33 gauge misc See Rx Instructions ea Not Applicable BID Qty: 100 RF: 0 metformin 1,000 mg tablet 1,000 mg PO BID RF: 0 aspirin 81 mg tablet,delayed release (DR/EC) 81 mg PO DAILY RF: 0 Trulicity 0.75 mg/0.5 mL pen injector 0.75 mg subcut QWEEK Qty: 2 RF: 1 (DME) FreeStyle Lite Strips Strip See Rx Instructions .ROUTE .MEDSUPPLY Qty: 150 RF: 11 (DME) lancets [TRUEplus Lancets] 33 gauge misc See Rx Instructions .ROUTE .MEDSUPPLY Qty: 200 RF: 11 Referrals: [facility] [Primary Care Provider] - 2 days Print Language: Mauritanian
[2020-08-20 15:52] VITALS: BP 146/92; PULSE 80; RESP 18; TEMP 36.8; O2SAT 100
[2020-08-20 16:11] LABS: Amphetamine Screen Urine Not Detected (Not Detect); Barbiturates, Urine Not Detected (Not Detect); Benzodiazepines Screen Urine Not Detected (Not Detect); Cannabinoid Screen Urine Not Detected (Not Detect); Cocaine Screen Urine POSITIVE (Not Detect); Opiate Screen Urine Not Detected (Not Detect); Phencyclidine Screen Urine Not Detected (Not Detect)
[2020-08-20 18:46] LABS: Troponin-I High Sensitivity < 3.5 ng/L (<3.5-35.0)
[2020-08-20 19:29] VITALS: BP 135/89; PULSE 84; RESP 18; O2SAT 100
== END 2020-08-20 19:39 | disposition home or self-care (01) ==
PROVIDERS: Physician Assistant Medical; Emergency Provider Emergency Medicine Emergency Medical Services
DX: R07.89 Other chest pain (principal); F14.10 Cocaine abuse, uncomplicated; I10 Essential (primary) hypertension; E11.9 Type 2 diabetes mellitus without complications; Z79.4 Long term (current) use of insulin; Z79.899 Other long term (current) drug therapy; I25.2 Old myocardial infarction; Z20.822 Contact with and (suspected) exposure to COVID-19
CPT/HCPCS: 36415; 70450; 71045; 80053; 80307; 82947; 83735; 84484; 85025; 87635; 93005; 99285

== ENCOUNTER 2020-08-24 08:46 | Outpatient (REF) | payer OTHER, SELFPAY ==
[2020-08-24 10:50] LABS: Estimated Average Glucose 258 mg/dL; Hemoglobin A1c % 10.6 %
[2020-08-24 11:11] LABS: C Reactive Protein 0.17 mg/dL (< or = 0.50); Lipase 47 U/L (8-78)
[2020-08-24 11:40] LABS: Erythrocyte Sedimentation Rate 7 MM/HR (0-15)
[2020-08-24 12:50] LABS: CDiff Gene PCR NEGATIVE (Negative)
[2020-08-31 02:27] LABS: Calprotectin, Fecal 64 mcg/g
[2020-08-31 09:56] LABS: Endomysial IgA Antibody Negative (Negative)
[2020-09-04 19:56] LABS: Transglutaminase IgA 1 U/mL (<4)
== END 2020-08-24 08:47 | disposition home or self-care (01) ==
LOC: HO.LAB 08:46
PROVIDERS: PCP Nurse Practitioner Family; Referring Provider Nurse Practitioner Family; Visit Provider Physician Assistant
DX: K52.9 Noninfective gastroenteritis and colitis, unspecified (principal); K59.09 Other constipation; Z78.9 Other specified health status; Z79.899 Other long term (current) drug therapy
CPT/HCPCS: 36415; 83036; 83516; 83690; 83993; 84443; 85652; 86140; 86255; 86256; 87045; 87046; 87177; 87209; 87329; 87493; 99202

== ENCOUNTER → 2020-08-30 14:01 | Outpatient (BNVA) | payer OTHER, SELFPAY | PROVIDERS: PCP Nurse Practitioner Family; Visit Provider Nurse Practitioner Gerontology | DX: E11.42 Type 2 diabetes mellitus with diabetic polyneuropathy (principal); I10 Essential (primary) hypertension; E78.00 Pure hypercholesterolemia, unspecified; N52.9 Male erectile dysfunction, unspecified; Z79.4 Long term (current) use of insulin | CPT/HCPCS: 82947; Q3014 ==

== ENCOUNTER 2020-08-31 09:38 | Outpatient (REF) | payer OTHER, SELFPAY ==
[2020-08-31 10:53] LABS: Cholesterol 250 mg/dL; HDL Cholesterol 43 mg/dL; LDL Cholesterol Calculated 173 mg/dl; Triglycerides 172 mg/dL
[2020-08-31 11:08] LABS: PSA,Total (Free>4and<10) 0.23 ng/mL (0.00-4.00); Thyroid Stimulating Hormone 1.51 uIU/mL (0.32-4.0)
[2020-08-31 11:42] LABS: TSH reflex Free T4 1.47 uIU/mL (0.32-4.0)
[2020-09-02 07:56] LABS: Sex Hormone Binding Globulin 33 nmol/L (10-50)
[2020-09-03 09:37] LABS: Follicle Stimulating Hormone 11.8 mIU/mL (1.6-8.0); Lutenizing Hormone 13.3 mIU/mL (1.5-9.3); Prolactin 11.7 ng/mL (2.0-18.0)
[2020-09-05 11:42] LABS: Testosterone, Free 56.9 pg/mL (35.0-155.0); Testosterone, Total 333 ng/dL (250-1100)
== END 2020-08-31 09:39 | disposition home or self-care (01) ==
LOC: HO.LAB 09:38
PROVIDERS: Visit Provider Nurse Practitioner Gerontology
DX: Z12.5 Encounter for screening for malignant neoplasm of prostate (principal); N52.9 Male erectile dysfunction, unspecified
CPT/HCPCS: 36415; 80061; 83001; 83002; 84146; 84153; 84270; 84402; 84403; 84443

== ENCOUNTER 2020-09-19 17:37 | Emergency (ER) | payer OTHER, SELFPAY ==
[2020-09-19 18:35] VITALS: BP 114/73; PULSE 90; RESP 18; TEMP 36.6; O2SAT 99; BMI 28.7
--- NOTE | 2020-09-19 21:00 | ED.ABDPAIN ---
HPI - Abdominal Pain General Chief Complaint: Abdominal Pain Stated Complaint: back pain Time Seen by Provider: 09/19/20 20:41 Source: patient Mode of arrival: ambulatory Limitations: no limitations History of Present Illness HPI narrative: Patient presents to ED for 5 days of flank pain. History of kidney stones Related Data Home Medications Medication Instructions Recorded Confirmed aripiprazole 15 mg tablet 15 mg PO DAILY 07/20/20 08/30/20 aspirin 81 mg tablet,delayed 81 mg PO DAILY 07/20/20 08/30/20 release bupropion HCl 300 mg 24 hr tablet, 300 mg PO BEDTIME 07/20/20 08/30/20 extended release gabapentin 400 mg capsule 400 mg PO TID 07/20/20 08/30/20 lancets 33 gauge #100 ea 07/20/20 08/30/20 metformin 1,000 mg tablet 1,000 mg PO BID 07/20/20 08/30/20 omeprazole 20 mg capsule,delayed 20 mg PO DAILY 07/20/20 08/30/20 release pen needle, diabetic 32 gauge x #50 ea 07/20/20 08/30/20 prazosin 2 mg capsule 2 mg PO BEDTIME 07/20/20 08/30/20 trazodone 100 mg tablet 100 mg PO BEDTIME 07/20/20 08/30/20 venlafaxine 150 mg 150 mg PO DAILY 07/20/20 08/30/20 capsule,extended release 24 hr Previous Rx's Medication Instructions Recorded blood sugar diagnostic (FreeStyle #150 ea 07/20/20 Lite Strips) lancets 33 gauge (TRUEplus Lancets) #200 ea 07/20/20 insulin aspart U-100 100 unit/mL 15 unit SUBCUT TID #15 ml 08/10/20 (3 mL) subcutaneous pen (Novolog Flexpen U-100 Insulin aspart) insulin degludec 100 unit/mL (3 60 unit SUBCUT QPM 30 Days #30 ml 08/10/20 mL) subcutaneous pen loperamide 2 mg capsule (Imodium 2 mg PO Q6H PRN #30 cap 08/24/20 A-D) dulaglutide 1.5 mg/0.5 mL 1.5 mg SUBCUT QWEEK 28 Days #2 ml 08/30/20 [facility] atorvastatin 40 mg tablet 40 mg PO BEDTIME #90 tab 09/05/20 Allergies Allergy/AdvReac Type Severity Reaction Status Date / Time No Known Allergies Allergy Unverified 08/30/20 14:52 [No Known Allergies*] Physical Exam Vital Signs: Vital Signs: Last Vital Signs Temp 97.8 F 09/19/20 18:35 Pulse 90 09/19/20 18:35 Resp 18 09/19/20 18:35 BP 114/73 09/19/20 18:35 Pulse Ox 99 09/19/20 18:35 Body Mass Index 28.7 Course Reevaluation(s) Reevaluation #1: Patient eloped before labs could be drawn or history/ physical exam could be completed. I want to get professor of history, but then patient was not found at bedside. Time: 21:52 Discharge Plan Discharge Clinical Impression: Acute flank pain Patient Disposition: Elopement Prescriptions: No Action insulin aspart U-100 [Novolog Flexpen U-100 Insulin] 100 unit/mL (3 mL) insulin pen 15 unit subcut TID Qty: 15 RF: 3 insulin degludec 100 unit/mL (3 mL) insulin pen 60 unit subcut QPM 30 Days Qty: 30 RF: 1 atorvastatin 40 mg tablet 40 mg PO BEDTIME Qty: 90 RF: 1 bupropion HCl 300 mg tablet extended release 24 hr 300 mg PO BEDTIME RF: 0 aripiprazole 15 mg tablet 15 mg PO DAILY RF: 0 prazosin 2 mg capsule 2 mg PO BEDTIME RF: 0 omeprazole 20 mg capsule,delayed release(DR/EC) 20 mg PO DAILY RF: 0 trazodone 100 mg tablet 100 mg PO BEDTIME RF: 0 venlafaxine 150 mg capsule,extended release 24hr 150 mg PO DAILY RF: 0 gabapentin 400 mg capsule 400 mg PO TID RF: 0 (DME) pen needle, diabetic 32 gauge x 5/32 needle See Rx Instructions ea .ROUTE .MEDSUPPLY Qty: 50 RF: 0 (DME) lancets 33 gauge misc See Rx Instructions ea Not Applicable BID Qty: 100 RF: 0 metformin 1,000 mg tablet 1,000 mg PO BID RF: 0 aspirin 81 mg tablet,delayed release (DR/EC) 81 mg PO DAILY RF: 0 (DME) FreeStyle Lite Strips Strip See Rx Instructions .ROUTE .MEDSUPPLY Qty: 150 RF: 11 (DME) lancets [TRUEplus Lancets] 33 gauge misc See Rx Instructions .ROUTE .MEDSUPPLY Qty: 200 RF: 11 loperamide [Imodium A-D] 2 mg capsule 2 mg PO Q6H PRN (Reason: loose stool) Qty: 30 RF: 0 Trulicity 1.5 mg/0.5 mL pen injector 1.5 mg subcut QWEEK 28 Days Qty: 2 RF: 3 Interventions: ED Discharge Assessment Last Done: 09/19/20 21:53 Discharge Date/Time: 09/19/20 21:10 [facility] Past Medical History Medical History (Updated 09/19/20 @ 23:53 by MOHINI Douglas) Anxiety Arthritis Depression Diabetes High cholesterol High cholesterol History of myocardial infarction HTN (hypertension) Hyperlipidemia LDL goal <70 Normal echocardiogram Surgical History H/O cardiac catheterization History of appendectomy Hx of foot surgery Family History Family History Mother Alzheimer disease HTN (hypertension) Father Old age Brother Diabetes mellitus Maternal Grandmother Diabetes mellitus Heart disease Social History Social History (Updated 08/24/20 @ 09:14 by Romana Carbajal PA-C) Household Members: Other Household Members Other:: Roommate Housing: Apartment Alcohol intake: current Alcohol intake frequency: 0-2 drinks per day Patient Tobacco Use Status: Current everyday Tobacco user Substance Use Type: Crack/Cocaine and Other Advance Directives: No
--- NOTE | 2020-09-19 21:51 | PC.NURSE ---
pt was not found in his room at approx 2110.
== END 2020-09-19 21:10 | disposition left against medical advice (07) ==
PROVIDERS: Emergency Provider Internal Medicine
DX: R10.9 Unspecified abdominal pain (principal); Z87.442 Personal history of urinary calculi; Z79.899 Other long term (current) drug therapy; Z79.82 Long term (current) use of aspirin; Z79.4 Long term (current) use of insulin
CPT/HCPCS: 99283

== ENCOUNTER 2020-09-26 16:51 | Inpatient (IN) | payer OTHER, SELFPAY ==
[2020-09-26] VITALS (9 sets, daily range): BP systolic 112–177; BP diastolic 71–100; PULSE 78–88; RESP 12–18; TEMP 36.7–37.1; O2SAT 96–100; BMI 29.4
--- NOTE | ~2020-09-26 | MR_ITS ---
EXAMINATION: BRAIN MRI WITHOUT CONTRAST CLINICAL INFORMATION: Slurred speech. Mouth droop. Right upper and lower extremity weakness. COMPARISON: CT angiogram of the head and neck 09/26/2020. TECHNIQUE: Multiplanar MR imaging of the brain was performed without contrast. FINDINGS: There are a few tiny nonspecific foci of T2 FLAIR signal hyperintensity within the supratentorial white matter. There is no acute territorial infarct. No pathological magnetic susceptibility artifact. Intracranial vascular flow voids are maintained. There is no intracranial mass effect or midline shift. No abnormal extra-axial collection. Lateral and third ventricles are normal. No hydrocephalus. Midline structures including the cervicomedullary junction are normal. No acute bone marrow signal changes. Of note there is a small focus of intrinsic T1 and T2 signal hyperintensity involving the right petrous apex that corresponds with a well marginated lucent lesion on recent CT imaging that has remained stable since a CT scan of the head from 08/13/2017. MR/MR head/brain wo con IMPRESSION: Unremarkable brain MRI. No evidence of acute territorial infarct or hemorrhage. Stable appearance of a well marginated nonspecific lesion involving the right petrous apex. Differential considerations include inspissated proteinaceous secretions or possibly a cholesterol granuloma,
--- NOTE | ~2020-09-26 | CT_ITS ---
EXAMINATION: CT HEAD WITHOUT CONTRAST (STROKE PROTOCOL) CLINICAL INFORMATION: Stroke protocol. slurred speech, R arm/leg weakness COMPARISON: CT head August 20, 2020 TECHNIQUE: Contiguous axial imaging was performed from the skull base to vertex without intravenous administration of contrast. This CT examination was performed using dose optimization techniques as appropriate, variously including the following: *Automated exposure control *Adjustment of mA and/or kV according to patient size (this includes techniques or standardized protocols for targeted exams where dose is matched to indication/reason for exam; i.e. extremities or head) *Use of iterative reconstruction technique DLP: 797 mGy-cm FINDINGS: There is no intracranial hemorrhage, hematoma, or extra-axial fluid collection. The ventricles are normal in size. There is no hydrocephalus, edema, or mass effect. The tierney-white matter differentiation appears symmetric. There is no acute infarct or mass lesion. The calvarium appears intact. There is no pneumocephalus or orbital emphysema. Small volume of mucosal thickening in the inferior right and left maxillary sinuses. The mastoid air cells and middle ear cavities are normally aerated. CT/CT head for stroke IMPRESSION: No acute intracranial pathology. This critical result was discussed with Dr. Carvajal at 1711 hours on 09/26/2020. It was ascertained that the content and urgency of the report was understood at the time of direct communication.
--- NOTE | ~2020-09-26 | CT_ITS ---
EXAMINATION: CT angio head neck stroke CLINICAL INFORMATION: Slurred speech. Right upper and lower extremity weakness. COMPARISON: CT scan of the head 09/26/2020. TECHNIQUE: Train Attendant images were obtained. A CT angiogram of the head and neck was performed in the arterial phase after the intravenous administration of 70 mL Omnipaque 350. Pre and delayed postcontrast images of the head were also obtained. MIP reconstructions were generated in multiple orientations at the acquisition workstation. Multiple three-dimensional surface rendered images and maximum intensity projection images were generated on a dedicated 3-D lab workstation. Arterial stenoses are measured in accordance with NASCET criteria or similar method if applicable. This CT examination was performed using dose optimization techniques as appropriate, including one or more of the following: Automated exposure control, iterative reconstruction, and adjustment of technique factors (mA and/or kVp) according to patient size (this includes techniques or standardized protocols for targeted exams where dose is matched to indication/reason for exam). 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 Otherwise no abnormal mass or enhancement visualized elsewhere within the intracranial compartment. No intracranial mass effect or midline shift. Lateral and third ventricles are normal. No hydrocephalus. Monae-white matter differentiation is preserved and there is no evidence of acute territorial infarct. The calvarium and skull base are intact. Mastoid air cells and middle ear cavities are well aerated. There is mild to moderate paranasal sinus disease primarily affecting the maxillary sinuses. CT angiogram: The aortic arch apex is normal. Origins of the major aortic branches are widely patent. Common carotid arteries and carotid bifurcations are normal. No stenosis of the extracranial internal carotid arteries. The cervical segments of the vertebral arteries as well as their origins are patent. The intracranial internal carotid arteries are patent. Intradural vertebral artery segments and basilar artery are patent. Anterior, middle, and posterior cerebral artery complexes are normal. No intracranial large vessel occlusion. The timing of the contrast injection provides adequate opacification of the dural venous sinuses which are patent. Other: Soft tissues of the neck including the thyroid gland are normal. Visualized lung apices are clear. There is no acute osseous finding. Specifically no worrisome lytic or blastic osseous lesion. CT/CT angio head neck stroke IMPRESSION: Unremarkable CT angiogram of the head and neck in that there is no stenosis of the cervical carotid or vertebral arteries. No intracranial large vessel occlusion. No evidence of acute territorial infarct or hemorrhage. No abnormal intracranial mass or enhancement.
--- NOTE | ~2020-09-26 | CT_ITS ---
EXAMINATION: CT HEAD WITHOUT CONTRAST CLINICAL INFORMATION: Left-sided headache. COMPARISON: 09/26/2020 TECHNIQUE: Contiguous axial imaging was performed from the skull base to vertex without intravenous contrast. This CT examination was performed using dose optimization techniques as appropriate, variously including the following: * Automated exposure control * Adjustment of mA and/or kV according to patient size (this includes techniques or standardized protocols for targeted exams where dose is matched to indication/reason for exam; i.e. extremities or head) Use of iterative reconstruction technique DLP: 834 mGy-cm. FINDINGS: There is no evidence of acute intracranial hemorrhage or territorial infarction. No abnormal mass effect or midline shift is seen. Monae to white matter differentiation is well preserved. No extra-axial fluid collections are identified. No hydrocephalus. No significant volume loss. There is no abnormal attenuation within the brain parenchyma. The osseous structures and soft tissues are normal. Mild mucoperiosteal thickening of both maxillary sinuses. The mastoid air cells and visualized portions of the paranasal sinuses are otherwise well aerated. CT/CT head/brain wo con IMPRESSION: No acute intracranial pathology.
--- NOTE | 2020-09-26 17:04 | ED.GENADULT ---
HPI - General Adult General Chief complaint: Stroke Stated complaint: stroke Time Seen by Provider: 09/26/20 16:56 Source: patient and EMS Mode of arrival: EMS Limitations: no limitations History of Present Illness HPI narrative: Patient comes emergency room complaining sudden onset of dizziness, heaviness in the speech, numbness in the perioral and tongue region, weakness in the right arm and in the right leg. Patient states this has never happened before. Patient states that he was driving when the symptoms suddenly started, patient was driving, getting close to his home. When patient pulled into his driveway, parked the car, patient had difficulty getting out of the car due to the right arm and right leg weakness. Patient denies being on blood thinners, only aspirin, no recent falls. Related Data Home Medications Medication Instructions Recorded Confirmed aripiprazole 15 mg tablet 15 mg PO DAILY 07/20/20 08/30/20 aspirin 81 mg tablet,delayed 81 mg PO DAILY 07/20/20 08/30/20 release bupropion HCl 300 mg 24 hr tablet, 300 mg PO BEDTIME 07/20/20 08/30/20 extended release gabapentin 400 mg capsule 400 mg PO TID 07/20/20 08/30/20 lancets 33 gauge #100 ea 07/20/20 08/30/20 metformin 1,000 mg tablet 1,000 mg PO BID 07/20/20 08/30/20 omeprazole 20 mg capsule,delayed 20 mg PO DAILY 07/20/20 08/30/20 release pen needle, diabetic 32 gauge x #50 ea 07/20/20 08/30/20 prazosin 2 mg capsule 2 mg PO BEDTIME 07/20/20 08/30/20 trazodone 100 mg tablet 100 mg PO BEDTIME 07/20/20 08/30/20 venlafaxine 150 mg 150 mg PO DAILY 07/20/20 08/30/20 capsule,extended release 24 hr Previous Rx's Medication Instructions Recorded blood sugar diagnostic (FreeStyle #150 ea 07/20/20 Lite Strips) lancets 33 gauge (TRUEplus Lancets) #200 ea 07/20/20 insulin aspart U-100 100 unit/mL 15 unit SUBCUT TID #15 ml 08/10/20 (3 mL) subcutaneous pen (Novolog Flexpen U-100 Insulin aspart) insulin degludec 100 unit/mL (3 60 unit SUBCUT QPM 30 Days #30 ml 08/10/20 mL) subcutaneous pen loperamide 2 mg capsule (Imodium 2 mg PO Q6H PRN #30 cap 08/24/20 A-D) dulaglutide 1.5 mg/0.5 mL 1.5 mg SUBCUT QWEEK 28 Days #2 ml 08/30/20 subcutaneous pen injector (Trulicity) atorvastatin 40 mg tablet 40 mg PO BEDTIME #90 tab 09/05/20 Allergies Allergy/AdvReac Type Severity Reaction Status Date / Time No Known Allergies Allergy Unverified 08/30/20 14:52 [No Known Allergies*] Review of Systems Review of Systems: Constitutional : No Weight loss, No Fever, No Chills, No Night Sweats, No Fatigue, No Malaise ENT/Mouth : No Hearing loss, No Ear Pain, No Nasal Congestion, No Sinus Pain, No Hoarseness, No sore throat, No Rhinorrhea, No Swallowing Difficulty Eyes: No Eye Pain, No Swelling, No Redness, No Foreign Body, No Discharge, No Vision Changes Cardiovascular : No Chest Pain, No SOB, No Dyspnea on Exertion, No Orthopnea, No Edema, No Palpitations Respiratory : No Cough, No Sputum, No Wheezing, No Smoke Exposure, No Dyspnea Gastrointestinal : No Nausea, No Vomiting, No Diarrhea, No Constipation, No abdominal Pain, No Hematochezia, No Melena Genitourinary : no irregular bleeding, No Dysuria, No Urinary Frequency, No Hematuria, No Urinary Incontinence, No Urgency, No Flank Pain, No Urinary Flow Changes, No Hesitancy Musculoskeletal : No joint pain, No Myalgias, No Joint Swelling Skin : No Skin Lesions, No rash Neuro : Complaining of perioral and tongue numbness, feels speech is heavy, difficulty moving the right arm and the right leg, complaining of dizziness Psych : No Anxiety/Panic, No Depression, No SI/HI/AH/VH, No Social Issues, Heme/Lymph: No Bruising, No Bleeding,No Lymphadenopathy Endocrine : No Polyuria, No Polydipsia, No Temperature Intolerance [facility] Past Medical History Medical History Anxiety Arthritis Depression Diabetes High cholesterol High cholesterol History of myocardial infarction HTN (hypertension) Hyperlipidemia LDL goal <70 Normal echocardiogram Surgical History H/O cardiac catheterization History of appendectomy Hx of foot surgery Family History Family History Mother Alzheimer disease HTN (hypertension) Father Old age Brother Diabetes mellitus Maternal Grandmother Diabetes mellitus Heart disease Social History Social History (Updated 08/24/20 @ 09:14 by Romana Carbajal PA-C) Household Members: Other Household Members Other:: Roommate Housing: Apartment Alcohol intake: current Alcohol intake frequency: a few times a month Patient Tobacco Use Status: Current everyday Tobacco user Use of substances other than those prescribed or required for medical reasons: No Substance Use Type: Crack/Cocaine and Other Advance Directives: No Advance Directives Information Provided: No Physical Exam Vital Signs: Vital Signs: Last Vital Signs Temp 98.8 F 09/26/20 17:11 Pulse 87 09/26/20 17:54 Resp 18 09/26/20 17:54 BP 164/97 H 09/26/20 17:54 Pulse Ox 100 09/26/20 17:54 Body Mass Index 29.4 Const: Other: Appearance: Alert. Oriented X3. No acute distress. Eyes: Pupils equal, round and reactive to light. ENT: Pharynx normal. Neck: Normal inspection. Neck supple. No lymph nodes noted. No crepitus CVS: Normal heart rate and rhythm. Pulses normal. Normal S1 and S2 Respiratory: No respiratory distress. Breath sounds normal. No Wheezing. No rales Abdomen: Soft and nontender. No rigidity. No distention. good BS x4 Skin: Skin warm and dry. Normal skin color. Normal skin turgor. Extremities: No lower extremity edema. No lower extremity edema. No Lacerations. No Rash Neuro: Oriented X 3. Patient speaking slower, states his tongue feels very heavy, difficulty smiling, positive pronator drift in the right arm, strength 2/5 in right arm, 3/5 in right leg. Patient has full range of motion and strength 5/5 in the left right upper and lower extremity NIH Stroke Scale Level of Consciousness: Alert Level of Consciousness Questions: Answers both questions correctly Level of Consciousness Commands: Performs both tasks correctly Best Gaze: Normal Visual: No visual loss Facial Palsy: Partial paralysis Motor Arm (Right): Some effort against gravity Motor Arm (Left): No drift Motor Leg (Right): Some effort against gravity Motor Leg (Left): No drift Limb Ataxia: Absent Sensory: Normal Best Language: No aphasia Dysarthia: Normal Extinction and Inattention: No abnormality Score: 6 Course Course Course Narrative: Dry CT negative, I discussed the patient with Dr. Knowles, we will go ahead and give tPA. I discussed the risks versus benefits of tPA with the patient, patient understands. CTA of the head negative 17:24 tPA started I discussed the patient with Dr. Rojas, patient being admitted overnight to the ICU. Patient will need an MRI in the morning Reevaluation(s) Reevaluation #1: Patient's symptoms improving. Patient is able to move his right arm and right leg up words, is unable to hold them up, still with a positive drift. Patient is able to smile now. Patient states that the weakness in his right extremities has improved but it is still present, patient is able now to use his right hand and move it more. Patient reports no headache Time: 18:10 Medical Decision Making Lab Data Result diagrams: 09/26/20 17:27 09/26/20 17:27 Labs: Lab Results 09/26/20 09/26/20 09/26/20 Range/Units 17:16 17:17 17:27 WBC 10.8 (4.8-10.8) X10*3/uL RBC 4.27 L (4.60-5.80) X10*6/uL Hgb 13.9 L (14.0-18.0) g/dl Hct 40.2 L (42-52) % MCV 94.1 (80-98) fL MCH 32.6 (27.0-33.0) pg MCHC 34.6 (31.0-36.0) g/dl RDW 12.7 (11.0-16.0) % Plt Count 195 (160-400) X10*3/uL MPV 11.7 (9.4-12.4) fL Immature Gran % (Auto) 0.3 (0.0-0.4) % Neut % (Auto) 44.5 L (45-73) % Lymph % (Auto) 44.5 H (20-40) % Kaufman % (Auto) 7.7 (2-11) % Eos % (Auto) 2.2 (0-4) % Baso % (Auto) 0.8 (0-2) % Lymph # (Auto) 4.8 (1.2-4.9) X10*3/uL Kaufman # (Auto) 0.8 (0.1-1.2) X10*3/uL Eos # (Auto) 0.2 (0.0-0.4) X10*3/uL Baso # (Auto) 0.1 (0.0-0.2) X10*3/uL Abs Immat Gran (auto) 0.03 (0.00-0.03) X10*3/uL Absolute Neuts (auto) 4.8 (2.0-8.3) X10*3/uL Absolute Nucleated RBC 0.000 (0.0-0.012) X10*3/uL Nucleated RBC % (auto) 0.0 (0.0-0.2) /100WBC PT (9.9-13.0) SEC Whole Blood PT 12.2 (11.1-13.5) sec INR (0.9-1.1) Whole Blood INR 1.0 (0.9-1.1) APTT (24.1-38.0) SEC Sodium (135-145) mmol/L Potassium (3.3-5.1) mmol/L Chloride (96-108) mmol/L Carbon Dioxide (22-29) mmol/L Anion Gap (12-20) BUN (9-16) mg/dL Creatinine (0.5-1.4) mg/dL Estim Creat Clear Calc Estimated GFR POC Glucose 288 H (60-115) mg/dL Random Glucose (60-115) mg/dL Calcium (8.4-10.2) mg/dL Total Creatine Kinase (38-174) U/L Troponin I High Sens (<3.5-35.0) ng/L Ethyl Alcohol mg/dL 09/26/20 09/26/20 09/26/20 Range/Units 17:27 17:27 17:27 WBC (4.8-10.8) X10*3/uL RBC (4.60-5.80) X10*6/uL Hgb (14.0-18.0) g/dl Hct (42-52) % MCV (80-98) fL MCH (27.0-33.0) pg MCHC (31.0-36.0) g/dl RDW (11.0-16.0) % Plt Count (160-400) X10*3/uL MPV (9.4-12.4) fL Immature Gran % (Auto) (0.0-0.4) % Neut % (Auto) (45-73) % Lymph % (Auto) (20-40) % Kaufman % (Auto) (2-11) % Eos % (Auto) (0-4) % Baso % (Auto) (0-2) % Lymph # (Auto) (1.2-4.9) X10*3/uL Kaufman # (Auto) (0.1-1.2) X10*3/uL Eos # (Auto) (0.0-0.4) X10*3/uL Baso # (Auto) (0.0-0.2) X10*3/uL Abs Immat Gran (auto) (0.00-0.03) X10*3/uL Absolute Neuts (auto) (2.0-8.3) X10*3/uL Absolute Nucleated RBC (0.0-0.012) X10*3/uL Nucleated RBC % (auto) (0.0-0.2) /100WBC PT 11.7 (9.9-13.0) SEC Whole Blood PT (11.1-13.5) sec INR 1.0 (0.9-1.1) Whole Blood INR (0.9-1.1) APTT 32.7 (24.1-38.0) SEC Sodium 139 (135-145) mmol/L Potassium 4.1 (3.3-5.1) mmol/L Chloride 106 (96-108) mmol/L Carbon Dioxide 25 (22-29) mmol/L Anion Gap 12 (12-20) BUN 18 H (9-16) mg/dL Creatinine 0.88 (0.5-1.4) mg/dL Estim Creat Clear Calc 116.3 Estimated GFR > 60 POC Glucose (60-115) mg/dL Random Glucose 300 H D (60-115) mg/dL Calcium 9.0 D (8.4-10.2) mg/dL Total Creatine Kinase 137 (38-174) U/L Troponin I High Sens < 3.5 (<3.5-35.0) ng/L Ethyl Alcohol mg/dL 09/26/20 Range/Units 17:27 WBC (4.8-10.8) X10*3/uL RBC (4.60-5.80) X10*6/uL Hgb (14.0-18.0) g/dl Hct (42-52) % MCV (80-98) fL MCH (27.0-33.0) pg MCHC (31.0-36.0) g/dl RDW (11.0-16.0) % Plt Count (160-400) X10*3/uL MPV (9.4-12.4) fL Immature Gran % (Auto) (0.0-0.4) % Neut % (Auto) (45-73) % Lymph % (Auto) (20-40) % Kaufman % (Auto) (2-11) % Eos % (Auto) (0-4) % Baso % (Auto) (0-2) % Lymph # (Auto) (1.2-4.9) X10*3/uL Kaufman # (Auto) (0.1-1.2) X10*3/uL Eos # (Auto) (0.0-0.4) X10*3/uL Baso # (Auto) (0.0-0.2) X10*3/uL Abs Immat Gran (auto) (0.00-0.03) X10*3/uL Absolute Neuts (auto) (2.0-8.3) X10*3/uL Absolute Nucleated RBC (0.0-0.012) X10*3/uL Nucleated RBC % (auto) (0.0-0.2) /100WBC PT (9.9-13.0) SEC Whole Blood PT (11.1-13.5) sec INR (0.9-1.1) Whole Blood INR (0.9-1.1) APTT (24.1-38.0) SEC Sodium (135-145) mmol/L Potassium (3.3-5.1) mmol/L Chloride (96-108) mmol/L Carbon Dioxide (22-29) mmol/L Anion Gap (12-20) BUN (9-16) mg/dL Creatinine (0.5-1.4) mg/dL Estim Creat Clear Calc Estimated GFR POC Glucose (60-115) mg/dL Random Glucose (60-115) mg/dL Calcium (8.4-10.2) mg/dL Total Creatine Kinase (38-174) U/L Troponin I High Sens (<3.5-35.0) ng/L Ethyl Alcohol < 10 mg/dL Imaging Data Head CT: My impression: No acute pathology Radiologist's impression: There is no intracranial hemorrhage, hematoma, or extra-axial fluid collection.? The ventricles are normal in size. There is no hydrocephalus, edema, or mass effect.? The monae-white matter differentiation appears symmetric. There is no acute infarct or mass lesion. The calvarium appears intact. There is no pneumocephalus or orbital emphysema.? Small volume of mucosal thickening in the inferior right and left maxillary sinuses. The mastoid air cells and middle ear cavities are normally aerated. CT/CT head for stroke IMPRESSION: No acute intracranial pathology. 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 Otherwise no abnormal mass or enhancement visualized elsewhere within the intracranial compartment. No intracranial mass effect or midline shift. Lateral and third ventricles are normal. No hydrocephalus. Monae-white matter differentiation is preserved and there is no evidence of acute territorial infarct. The calvarium and skull base are intact. Mastoid air cells and middle ear cavities are well aerated. There is mild to moderate paranasal sinus disease primarily affecting the maxillary sinuses. CT angiogram: The aortic arch apex is normal. Origins of the major aortic branches are widely patent. Common carotid arteries and carotid bifurcations are normal. No stenosis of the extracranial internal carotid arteries. The cervical segments of the vertebral arteries as well as their origins are patent. The intracranial internal carotid arteries are patent. Intradural vertebral artery segments and basilar artery are patent. Anterior, middle, and posterior cerebral artery complexes are normal. No intracranial large vessel occlusion. The timing of the contrast injection provides adequate opacification of the dural venous sinuses which are patent. Other: Soft tissues of the neck including the thyroid gland are normal. Visualized lung apices are clear. There is no acute osseous finding. Specifically no worrisome lytic or blastic osseous lesion. CT/CT angio head? neck stroke IMPRESSION: Unremarkable CT angiogram of the head and neck in that there is no stenosis of the cervical carotid or vertebral arteries. No intracranial large vessel occlusion. No evidence of acute territorial infarct or hemorrhage. No abnormal intracranial mass or enhancement.? ECG Data Attestation: I personally reviewed and interpreted this ECG as follows: (Normal sinus rhythm, heart rate 82, no ST segment depression or elevation, no T-wave inversion, QTC 422) Discharge Plan Discharge Clinical Impression: Acute CVA (cerebrovascular accident) Patient Disposition: Admitted As Inpatient
--- NOTE | 2020-09-26 17:07 | ECG_ITS ---
Test Reason : CVA Blood Pressure : / mmHG Vent. Rate : 082 BPM Atrial Rate : 082 BPM P-R Int : 154 ms QRS Dur : 092 ms QT Int : 362 ms P-R-T Axes : 028 -41 043 degrees QTc Int : 422 ms Normal sinus rhythm Left axis deviation Septal infarct , age undetermined Abnormal ECG When compared with ECG of 20-AUG-2020 14:49, No significant change was found Referred By: Aruna Carvajal Electronically Signed By:JOHN MARTIN MD
[2020-09-26 17:19] LABS: Glucose, Whole Blood 288 mg/dL (60-115)
[2020-09-26] MEDS: iohexoL 350 MG/ML 100 ML INFUS..BTL IV (17:19)
[2020-09-26 17:21] LABS: Prothrombin Time Whole Bld POC 12.2 sec (11.1-13.5)
[2020-09-26 17:33] LABS: MANUAL DIFF FLAG NO
--- NOTE | 2020-09-26 17:35 | PC.NURSE ---
Pt is alert and oriented x3 and aware of situation. [place] speaking only. TPA admin explained to pt by MD in malay with pt understanding. This RN and Marcia RN admin TPA bolus of 8.3mg at 1724 and the remaining dose of 75.1mg started as infusion at 1730 for a total dose of 83.4mg per activate cardex and MD instructions. BP stable from 150s-170s systolic. aware of BP and okay to give if SBP is <180. Pt continues to have right sided upper and lower extremity weakness and mild right sided facial droop. Pt is on phone with family and tearful at this time. Pt on monitor SR in 80s.
[2020-09-26 17:41] LABS: Basophils Absolute Auto 0.1 X10*3/uL (0.0-0.2); Basophils Percent Auto 0.8 % (0-2); Eosinophils Absolute Auto 0.2 X10*3/uL (0.0-0.4); Eosinophils Percent Auto 2.2 % (0-4); Hematocrit 40.2 % (42-52); Hemoglobin 13.9 g/dl (14.0-18.0); Imm Gran Abs Auto 0.03 X10*3/uL (0.00-0.03); Imm Gran Pct Auto 0.3 % (0.0-0.4); Lymphocytes Absolute Auto 4.8 X10*3/uL (1.2-4.9); Lymphocytes Percent Auto 44.5 % (20-40); Mean Corpuscular HGB Conc 34.6 g/dl (31.0-36.0); Mean Corpuscular Hemoglobin 32.6 pg (27.0-33.0); Mean Corpuscular Volume 94.1 fL (80-98); Mean Platelet Volume 11.7 fL (9.4-12.4); Monocytes Absolute Auto 0.8 X10*3/uL (0.1-1.2); Monocytes Percent Auto 7.7 % (2-11); Neutrophils Absolute Auto 4.8 X10*3/uL (2.0-8.3); Neutrophils Percent Auto 44.5 % (45-73); Platelet Count 195 X10*3/uL (160-400); Red Blood Count 4.27 X10*6/uL (4.60-5.80); Red Cell Distribution Width 12.7 % (11.0-16.0); White Blood Count 10.8 X10*3/uL (4.8-10.8)
[2020-09-26 17:43] LABS: Prothrombin Time 11.7 SEC (9.9-13.0)
[2020-09-26 17:46] LABS: Partial Thromboplastin Time 32.7 SEC (24.1-38.0)
[2020-09-26 17:54] LABS: Ethanol < 10 mg/dL
[2020-09-26 17:56] LABS: Anion Gap 12 (12-20); Blood Urea Nitrogen 18 mg/dL (9-16); Carbon Dioxide 25 mmol/L (22-29); Chloride 106 mmol/L (96-108); Creatinine Clr Calc Pharmacy 116.3; Estimated Glomerular Filt Rate > 60; Glucose Random 300 mg/dL (60-115); Potassium 4.1 mmol/L (3.3-5.1); Sodium 139 mmol/L (135-145)
[2020-09-26 18:00] LABS: Troponin-I High Sensitivity < 3.5 ng/L (<3.5-35.0)
[2020-09-26 18:40] LABS: Stroke Lab Use COMPLETE
--- NOTE | 2020-09-26 18:40 | PC.NURSE ---
Sx impriving with greater strength in right extremities and absence of facial droop. Pt talking with family on phone. SBP in 160s
[2020-09-26 19:57] LABS: Glucose, Whole Blood 198 mg/dL (60-115)
[2020-09-26] MEDS: Insulin Regular, Human 100 UNIT/ML 3 ML VIAL IVPUSH (20:36)
[2020-09-26 21:33] LABS: Influenza A PCR NEGATIVE (Negative); Influenza B PCR NEGATIVE (Negative); Resp Syncy Virus RNA Qual PCR NEGATIVE (Negative); SARS COV2 PCR INHOUSE NEGATIVE (Negative)
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
[2020-09-26 22:20] LABS: Glucose, Whole Blood 174 mg/dL (60-115)
[2020-09-26] MEDS: Atorvastatin Calcium 80 MG TABLET PO (23:13)
[2020-09-26] MEDS: Insulin Lispro 100 UNIT/ML 3 ML VIAL SUBCUT (23:14)
[2020-09-26] MEDS: Acetaminophen 325 MG TABLET 650 MG PO (23:27)
[2020-09-27] VITALS (22 sets, daily range): BP systolic 96–167; BP diastolic 55–109; PULSE 69–85; RESP 10–19; TEMP 36.2–36.7; O2SAT 95–100; BMI 29.4
[2020-09-27] MEDS: 0.9 % Sodium Chloride Flush 3 ML SYRINGE IVFLUSH ×4 (00:23→20:58)
[2020-09-27 06:01] LABS: Hematocrit 40.2 % (42-52); Hemoglobin 13.7 g/dl (14.0-18.0); Mean Corpuscular HGB Conc 34.1 g/dl (31.0-36.0); Mean Corpuscular Hemoglobin 32.5 pg (27.0-33.0); Mean Corpuscular Volume 95.3 fL (80-98); Platelet Count 183 X10*3/uL (160-400); Red Blood Count 4.22 X10*6/uL (4.60-5.80); Red Cell Distribution Width 12.8 % (11.0-16.0); White Blood Count 10.1 X10*3/uL (4.8-10.8)
[2020-09-27 06:27] LABS: Anion Gap 12 (12-20); Blood Urea Nitrogen 17 mg/dL (9-16); Carbon Dioxide 25 mmol/L (22-29); Chloride 106 mmol/L (96-108); Cholesterol 177 mg/dL; Creatinine Clr Calc Pharmacy 123.3; Estimated Glomerular Filt Rate > 60; Glucose Random 244 mg/dL (60-115); HDL Cholesterol 37 mg/dL; LDL Cholesterol Calculated 109 mg/dl; Potassium 3.8 mmol/L (3.3-5.1); Sodium 139 mmol/L (135-145); Triglycerides 155 mg/dL
[2020-09-27 07:21] LABS: Glucose, Whole Blood 278 mg/dL (60-115)
[2020-09-27] MEDS: Insulin Lispro 100 UNIT/ML 3 ML VIAL SUBCUT ×4 (07:26→20:59)
[2020-09-27] MEDS: Nicotine 21 MG PATCH.TD24 TRANSDERMA (08:46)
[2020-09-27] MEDS: Acetaminophen 325 MG TABLET 975 MG PO (09:58)
[2020-09-27 11:33] LABS: Glucose, Whole Blood 315 mg/dL (60-115)
--- NOTE | 2020-09-27 12:19 | MHC.CM.PN ---
Addendum entered by Yamileth Ortega 09/27/20 14:01: Home PT and RN visits authorized by [facility]: Michael Huitron at [phone] Original Note: Met with pt to review d/c plans: pt refered me to his son Doc Roland for information: Call placed to Doc Roland at [phone]. Doc resides in [place] but is en route to [place] to stay with his father after d/c. Doc Roland states pt resides with his girlfriend and is independent with all care needs, has no services and no barriers to care. Discussed PT findings: pt does not feel home services are needed but is receptive to a [facility] referral. Doc Roland will stay in [place] for a bit to get pt settled following d/c. IMM completed, HCP copy requested. Referral made.
--- NOTE | 2020-09-27 12:52 | MHC.SL.SWA ---
Speech Pathologist Impression: Within Functional Limits Dysphasia Diet Status: No Change Liquid Consistency and Strategies for Safe Swallow: Liquid Intake Recommendation: Thin Liquid Intake Strategies: Unrestricted Solid Food Consistency: Dietary Recommendations: Regular Additional Modifications to Solid Foods: Oral Medication Intake: Whole with Liquid Compensatory Strategies and Precautions to be Taken for Safe Swallow: Sitting Upright (90 deg) Small Bites and Sips Alternate Liquids/Solids Supervision While Eating and Drinking for Safe Swallow: None Needed Recommendation for Speech: NA:Typical Evaluation Comment: Frequency/Duration: Date Range for Service Req: Timeline to reassess: Materials Specialist Clinican/Clinical Fellow: No Supervisory Statement: I have reviewed and agree with the student/clinical fellow's documentation: N/A Speech Language Pathologist: Marian Beaulieu M.A. CCC-BRAKE OPERATOR
--- NOTE | 2020-09-27 13:26 | P.PNCC_ITS ---
Subjective Subjective Date of Service: 09/27/20 Critical Care Time (minutes): 0 Comment: Mr. Braxton Quiñones was admitted to the ICU last night after being given tPA in the ED for a presumed stroke. The patient is a 50-year-old male w underlying history of diabetes, hypertension, coronary disease status post minor VT about 5 years ago but without any heart intervention, current smoker, anxiety, chronic diarrhea, GERD, peripheral neuropathy, and hyperlipidemia. The patient lives at home, does not use any assistive devices to ambulate.? 30 pack-year smoker, social alcohol, no drugs. BIBA to the ED yesterday after developing right upper and lower extremity weakness while pulling into his driveway at home.? Also had some dysarthria, but no aphasia.? See H&P for details.? Head CT and CTA negative.? Given tPA in the ED and then transferred to ICU for monitoring.? Right-sided weakness and speech ability were already starting to improve before he left the ED.? Also had his MRI before he left the ED; the MRI showed no evidence of a stroke. Last night knee ICU, patient developed the headache.? A repeat head CT at that time was still negative. This morning, he?s fully awake and appropriate.? Was still complaining of a headache.? We gave him 1000 mg Tylenol, and the headache resolved. ?See Vital Signs below.? Breathing easy, with sat 100% on room air. ?Speech is normal.? No facial droop or other gross cranial nerve abnormalities.? Right upper and lower extremity motor strength are 5-/5, barely discernable weakness compared to the left.? When he walks, a difference is visible in how he moves his right leg. LABORATORY DATA:? As below.? POC running 200-300.? Lipid profile shows no major problems. IMPRESSION:? 50-year-old male with multiple risk factors presented to the ED with symptoms/signs compatible with a left CVA.? Nothing showed up on CT scan, CTA, or MRI.? Unclear what the etiology of his symptoms was. Echo from today is pending.? Discussed with Dr. Knowles.? He will see the patient later today.? F/u per neurology. Will transfer to med/surg.? I?ll sign out to the hospitalist. Time:? [id number]. Physical Exam Vital Signs: Vital Signs: Last Vital Signs Temp 98.1 F 09/27/20 12:00 Pulse 85 09/27/20 13:00 Resp 16 09/27/20 13:00 BP 167/95 H 09/27/20 13:00 Pulse Ox 100 09/27/20 13:00 Body Mass Index 29.4 Objective Data Labs CBC & Chem 7: 09/27/20 05:36 09/27/20 05:36 Labs: Laboratory Results - last 24 hr 09/26/20 09/26/20 09/26/20 17:16 17:17 17:27 WBC 10.8 RBC 4.27 L Hgb 13.9 L Hct 40.2 L MCV 94.1 MCH 32.6 MCHC 34.6 RDW 12.7 Plt Count 195 MPV 11.7 Immature Gran % (Auto) 0.3 Neut % (Auto) 44.5 L Lymph % (Auto) 44.5 H [place] % (Auto) 7.7 Eos % (Auto) 2.2 Baso % (Auto) 0.8 Lymph # (Auto) 4.8 [place] # (Auto) 0.8 Eos # (Auto) 0.2 Baso # (Auto) 0.1 Abs Immat Gran (auto) 0.03 Absolute Neuts (auto) 4.8 Absolute Nucleated RBC 0.000 Nucleated RBC % (auto) 0.0 PT Whole Blood PT 12.2 INR Whole Blood INR 1.0 APTT Sodium Potassium Chloride Carbon Dioxide Anion Gap BUN Creatinine Estim Creat Clear Calc Estimated GFR POC Glucose 288 H Random Glucose Calcium Total Creatine Kinase Troponin I High Sens Triglycerides Cholesterol LDL Cholesterol, Calc HDL Cholesterol Ethyl Alcohol Coronavirus (PCR) Influenza Type A (PCR) Influenza Type B (PCR) RSV RNA Qual (PCR) 09/26/20 09/26/20 09/26/20 17:27 17:27 17:27 WBC RBC Hgb Hct MCV MCH MCHC RDW Plt Count MPV Immature Gran % (Auto) Neut % (Auto) Lymph % (Auto) [place] % (Auto) Eos % (Auto) Baso % (Auto) Lymph # (Auto) [place] # (Auto) Eos # (Auto) Baso # (Auto) Abs Immat Gran (auto) Absolute Neuts (auto) Absolute Nucleated RBC Nucleated RBC % (auto) PT 11.7 Whole Blood PT INR 1.0 Whole Blood INR APTT 32.7 Sodium 139 Potassium 4.1 Chloride 106 Carbon Dioxide 25 Anion Gap 12 BUN 18 H Creatinine 0.88 Estim Creat Clear Calc 116.3 Estimated GFR > 60 POC Glucose Random Glucose 300 H D Calcium 9.0 D Total Creatine Kinase 137 Troponin I High Sens < 3.5 Triglycerides Cholesterol LDL Cholesterol, Calc HDL Cholesterol Ethyl Alcohol Coronavirus (PCR) Influenza Type A (PCR) Influenza Type B (PCR) RSV RNA Qual (PCR) 09/26/20 09/26/20 09/26/20 17:27 19:54 20:44 WBC RBC Hgb Hct MCV MCH MCHC RDW Plt Count MPV Immature Gran % (Auto) Neut % (Auto) Lymph % (Auto) [place] % (Auto) Eos % (Auto) Baso % (Auto) Lymph # (Auto) [place] # (Auto) Eos # (Auto) Baso # (Auto) Abs Immat Gran (auto) Absolute Neuts (auto) Absolute Nucleated RBC Nucleated RBC % (auto) PT Whole Blood PT INR Whole Blood INR APTT Sodium Potassium Chloride Carbon Dioxide Anion Gap BUN Creatinine Estim Creat Clear Calc Estimated GFR POC Glucose 198 H Random Glucose Calcium Total Creatine Kinase Troponin I High Sens Triglycerides Cholesterol LDL Cholesterol, Calc HDL Cholesterol Ethyl Alcohol < 10 Coronavirus (PCR) NEGATIVE Influenza Type A (PCR) NEGATIVE Influenza Type B (PCR) NEGATIVE RSV RNA Qual (PCR) NEGATIVE 09/26/20 09/27/20 09/27/20 22:17 05:36 05:36 WBC 10.1 RBC 4.22 L Hgb 13.7 L Hct 40.2 L MCV 95.3 MCH 32.5 MCHC 34.1 RDW 12.8 Plt Count 183 MPV 12.0 Immature Gran % (Auto) Neut % (Auto) Lymph % (Auto) [place] % (Auto) Eos % (Auto) Baso % (Auto) Lymph # (Auto) [place] # (Auto) Eos # (Auto) Baso # (Auto) Abs Immat Gran (auto) Absolute Neuts (auto) Absolute Nucleated RBC 0.000 Nucleated RBC % (auto) 0.0 PT Whole Blood PT INR Whole Blood INR APTT Sodium 139 Potassium 3.8 Chloride 106 Carbon Dioxide 25 Anion Gap 12 BUN 17 H Creatinine 0.83 Estim Creat Clear Calc 123.3 Estimated GFR > 60 POC Glucose 174 H Random Glucose 244 H Calcium 9.0 Total Creatine Kinase Troponin I High Sens Triglycerides 155 Cholesterol 177 D LDL Cholesterol, Calc 109 HDL Cholesterol 37 Ethyl Alcohol Coronavirus (PCR) Influenza Type A (PCR) Influenza Type B (PCR) RSV RNA Qual (PCR) 09/27/20 09/27/20 07:18 11:30 WBC RBC Hgb Hct MCV MCH MCHC RDW Plt Count MPV Immature Gran % (Auto) Neut % (Auto) Lymph % (Auto) [place] % (Auto) Eos % (Auto) Baso % (Auto) Lymph # (Auto) [place] # (Auto) Eos # (Auto) Baso # (Auto) Abs Immat Gran (auto) Absolute Neuts (auto) Absolute Nucleated RBC Nucleated RBC % (auto) PT Whole Blood PT INR Whole Blood INR APTT Sodium Potassium Chloride Carbon Dioxide Anion Gap BUN Creatinine Estim Creat Clear Calc Estimated GFR POC Glucose 278 H 315 H Random Glucose Calcium Total Creatine Kinase Troponin I High Sens Triglycerides Cholesterol LDL Cholesterol, Calc HDL Cholesterol Ethyl Alcohol Coronavirus (PCR) Influenza Type A (PCR) Influenza Type B (PCR) RSV RNA Qual (PCR) Quality Stroke Does the patient have a stroke diagnosis?: Yes Reason for No Anti-thrombotic by Day Two: N/A - Med Ordered VTE Prior VTE?: No VTE Risk Level:: Medical - moderate - high VTE Device Contraindication: N/A - Device Ordered VTE Drug Contraindication: Treatment Not Indicated
[2020-09-27] MEDS: Gabapentin 400 MG CAPSULE PO ×2 (13:45→21:00)
[2020-09-27] MEDS: Prazosin HCL 1 MG CAPSULE PO (13:45)
[2020-09-27] MEDS: Venlafaxine HCl ER 150 MG CAP.ER.24H PO (13:45)
[2020-09-27] MEDS: ARIPiprazole 15 MG TABLET PO (13:45)
[2020-09-27] MEDS: Aspirin Enteric Coated 81 MG TABLET.DR PO (13:46)
[2020-09-27 16:30] LABS: Glucose, Whole Blood 164 mg/dL (60-115)
--- NOTE | 2020-09-27 17:55 | PC.NURSE ---
AFEBRILE, VSS. STARTED HOME MEDICATIONS FOR SBP. SR ON TELE. AT 24 HOUR ERNESTINE VITAL SIGNS AND NEURO CHECKS INTERVALS CHANGED WITH HOSPITALIST PERMISSION. HEADACHE SUCCESSFULLY TREAT WITH PRN TYLENOL. RIGHT HAND BOTTLING LINE ATTENDANT WEAK, RIGHT LEG WEAK WITH AMBULATION. LIFTS ARMS AND LEGS WITH EASE. OOB 1A/STANDY BY TO RECLINER. VOIDS IN URINAL. FAMILY UPDATED. REPORT GIVEN TO ELECTROTHERAPIST AT [id number].
--- NOTE | 2020-09-27 18:13 | P.CNNE_ITS ---
History of Present Illness Data of Consult Service Date: 09/27/20 Primary Care Provider: [facility] Reason for consult: Dysarthria, facial droop and hemiparesis This is a 50-year-old man with multiple stroke risk factors including hyperlipidemia,Myocardial infarction, diabetes, and hypertension who presented with dysarthria, right facial droop perioral numbness and right-sided weakness along with dizziness. He had a presentation with dizziness 3 months earlier and had a negative workup. On this occasion, his weakness was 2-3/5 on the right side with significant dysarthria. Initial CT scan and CTA were negative. TPA was given. The seems to have made a complete recovery. At this point. His MRI did not show any acute stroke. Review of Systems Review of Systems: Constitutional : No Weight loss, No Fever, No Chills, No Night Sweats, No Fatigue, No Malaise ENT/Mouth : No Hearing loss, No Ear Pain, No Nasal Congestion, No Sinus Pain, No Hoarseness, No sore throat, No Rhinorrhea, No Swallowing Difficulty Eyes: No Eye Pain, No Swelling, No Redness, No Foreign Body, No Discharge, No Vision Changes Cardiovascular : No Chest Pain, No SOB, No Dyspnea on Exertion, No Orthopnea, No Edema, No Palpitations Respiratory : No Cough, No Sputum, No Wheezing, No Smoke Exposure, No Dyspnea Gastrointestinal : No Nausea, No Vomiting, No Diarrhea, No Constipation, No abdominal Pain, No Hematochezia, No Melena Genitourinary : no irregular bleeding, No Dysuria, No Urinary Frequency, No Hematuria, No Urinary Incontinence, No Urgency, No Flank Pain, No Urinary Flow Changes, No Hesitancy Musculoskeletal : No joint pain, No Myalgias, No Joint Swelling Skin : No Skin Lesions, No rash Neuro : Complaining of perioral and tongue numbness, feels speech is heavy, difficulty moving the right arm and the right leg, complaining of dizziness Psych : No Anxiety/Panic, No Depression, No SI/HI/AH/VH, No Social Issues, Heme/Lymph: No Bruising, No Bleeding,No Lymphadenopathy Endocrine : No Polyuria, No Polydipsia, No Temperature Intolerance [facility] Past Medical History Medical History Anxiety Arthritis Depression Diabetes High cholesterol High cholesterol History of myocardial infarction HTN (hypertension) Hyperlipidemia LDL goal <70 Normal echocardiogram Family History Family History Mother Alzheimer disease HTN (hypertension) Father Old age Brother Diabetes mellitus Maternal Grandmother Diabetes mellitus Heart disease Surgical History Surgical History H/O cardiac catheterization History of appendectomy Hx of foot surgery Social History Social History (Updated 08/24/20 @ 09:14 by Romana Carbajal PA-C) Household Members: Family Household Members Other:: Roommate Housing: House Do you presently have visiting nurse or other home services: No Alcohol intake: current Alcohol intake frequency: a few times a month Patient Tobacco Use Status: Current everyday Tobacco user Tobacco use type: Cigarette Second Hand Smoke Exposure: Yes Substance Use Type: Crack/Cocaine and Other service: No Meds Allergies Allergy/AdvReac Type Severity Reaction Status Date / Time No Known Allergies Allergy Unverified 08/30/20 14:52 [No Known Allergies*] Active Medications: Current Medications Generic Name Dose Route Start Last Admin Trade Name Freq PRN Reason Stop Dose Admin Acetaminophen 975 mg 09/27/20 09:43 09/27/20 09:58 Acetaminophen 325 Mg Tablet PO 975 mg Q6H PRN Administration Pain, Mild (Pain Scale 1-3) Aripiprazole 15 mg 09/27/20 13:15 09/27/20 13:45 Aripiprazole 15 Mg Tablet PO 15 mg DAILY GRETCHEN Administration Aspirin 81 mg 09/27/20 13:15 09/27/20 13:46 Aspirin Enteric Coated 81 Mg Tablet. PO 81 mg DAILY GRETCHEN Administration Atorvastatin Calcium 80 mg 09/26/20 22:00 09/26/20 23:13 Atorvastatin Calcium 80 Mg Tablet PO 80 mg BEDTIME GRETCHEN Administration Bupropion HCl 300 mg 09/27/20 21:00 Bupropion Hcl Xl 300 Mg Tab.Er.24h PO BEDTIME GRETCHEN Dextrose 25 gm 09/26/20 21:56 Dextrose 50 % 25 Gm/50 Ml Vial IVPUSH Q15M PRN per Hypoglycemia Standing Ord. Protocol Gabapentin 400 mg 09/27/20 15:00 09/27/20 13:45 Gabapentin 400 Mg Capsule PO 400 mg TID GRETCHEN Administration Glucose 15 gm 09/26/20 21:56 Glucose Gel 15 Gm Gel..Gram. PO Q15M PRN per Hypoglycemia Standing Ord. Protocol Insulin Human Lispro 0 unit 09/27/20 07:30 09/27/20 16:33 Insulin Lispro 100 Unit/Ml 3 Ml Vial SUBCUT 2 unit QIDACHS [facility] Administration Protocol Loperamide HCl 2 mg 09/27/20 13:20 Loperamide Hcl 2 Mg Capsule PO Q6H PRN loose stool Metformin HCl 1,000 mg 09/27/20 21:00 Metformin Hcl 1,000 Mg Tablet PO BID [facility] Nicotine 21 mg 09/27/20 09:00 09/27/20 08:46 Nicotine 21 Mg Patch.Td24 TRANSDERMA 21 mg DAILY [facility] Administration Omeprazole 20 mg 09/28/20 09:00 Omeprazole 20 Mg Capsule.Dr PO DAILY [facility] Prazosin HCl 2 mg 09/27/20 21:00 Prazosin Hcl 1 Mg Capsule PO BEDTIME [facility] Protocol Sodium Chloride 3 ml 09/27/20 00:00 09/27/20 13:48 0.9 % Sodium Chloride Flush 3 Ml Syringe IVFLUSH 3 ml QSHIFT [facility] Administration Trazodone HCl 100 mg 09/27/20 21:00 Trazodone Hcl 100 Mg Tablet PO BEDTIME [facility] Venlafaxine HCl 150 mg 09/27/20 13:30 09/27/20 13:45 Venlafaxine Hcl Er 150 Mg Cap.Er.24h PO 150 mg DAILY [facility] Administration Home Medications Medication Instructions Recorded Confirmed Last Taken Type aripiprazole 15 mg tablet 15 mg PO DAILY 07/20/20 09/26/20 Unknown History aspirin 81 mg tablet,delayed 81 mg PO DAILY 07/20/20 09/26/20 Unknown History release bupropion HCl 300 mg 24 hr tablet, 300 mg PO BEDTIME 07/20/20 09/26/20 Unknown History extended release gabapentin 400 mg capsule 400 mg PO TID 07/20/20 09/26/20 Unknown History lancets 33 gauge #100 ea 07/20/20 09/26/20 Unknown History metformin 1,000 mg tablet 1,000 mg PO BID 07/20/20 09/26/20 Unknown History omeprazole 20 mg capsule,delayed 20 mg PO DAILY 07/20/20 09/26/20 Unknown History release pen needle, diabetic 32 gauge x #50 ea 07/20/20 09/26/20 Unknown History 5/32 prazosin 2 mg capsule 2 mg PO BEDTIME 07/20/20 09/26/20 Unknown History trazodone 100 mg tablet 100 mg PO BEDTIME 07/20/20 09/26/20 Unknown History venlafaxine 150 mg 150 mg PO DAILY 07/20/20 09/26/20 Unknown History capsule,extended release 24 hr Physical Exam Vital Signs: Vital Signs: Last Vital Signs Temp 98.1 F 09/27/20 16:00 Pulse 80 09/27/20 16:52 Resp 12 09/27/20 16:52 BP 142/109 H 09/27/20 16:52 Pulse Ox 100 09/27/20 16:52 Body Mass Index 29.4 Const: Other: Appearance: Alert. Oriented X3. No acute distress. Eyes: Pupils equal, round and reactive to light. ENT: Pharynx normal. Neck: Normal inspection. Neck supple. No lymph nodes noted. No crepitus CVS: Normal heart rate and rhythm. Pulses normal. Normal S1 and S2 Respiratory: No respiratory distress. Breath sounds normal. No Wheezing. No rales Abdomen: Soft and nontender. No rigidity. No distention. good BS x4 Skin: Skin warm and dry. Normal skin color. Normal skin turgor. Extremities: No lower extremity edema. No lower extremity edema. No Lacerations. No Rash Neuro: Oriented X 3. Patient speaking slower, states his tongue feels very heavy, difficulty smiling, positive pronator drift in the right arm, strength 2/ 5 in right arm, 3/5 in right leg. Patient has full range of motion and strength 5/5 in the left right upper and lower extremity Neuro: Cranial nerves: Yes CN's II-XII intact bilaterally Cognition (Neuro): normal cognition Speech: Other speech findings present (Neuro) (Normal speech with no dysphasia or dysarthria) Gait exam (Neuro): Normal gait present Motor exam (neuro): 5/5 motor strength present throughout Deep tendon reflexes (DTR's): Right triceps reflex intensity grade: 1+, Left triceps reflex intensity grade: 1+, Rt Biceps (C5, C6): 1+, Left biceps reflex intensity grade: 1+, Right patellar reflex intensity grade: 1+, Left patellar reflex intensity grade: 1+, Right ankle reflex intensity grade: 1+ and Left ankle reflex intensity grade: 1+ Plantar Reflex Responses: downgoing: bilateral Results Labs CBC & Chem 7: 09/27/20 05:36 09/27/20 05:36 Labs: Short CBC 09/27/20 Range/Units 05:36 WBC 10.1 (4.8-10.8) X10*3/uL Hgb 13.7 L (14.0-18.0) g/dl Hct 40.2 L (42-52) % Plt Count 183 (160-400) X10*3/uL BMP 09/27/20 05:36 Sodium 139 Potassium 3.8 Chloride 106 Carbon Dioxide 25 BUN 17 H Creatinine 0.83 Calcium 9.0 Assessment and Plan (1) Acute CVA (cerebrovascular accident): Status: Acute Status post TPA. His back to his baseeline with complete recovery. MRI shows no acute infarct. It is unclear this. This was a prolonged TIA. One would've expected to see some ischemic changes over this period of time. It also raises the possibility if this was a conversion reaction. He can be discharged on aspirin 81 mg a day, atorvastatin 80 mg a day. 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
--- NOTE | 2020-09-27 18:53 | CA_ITS ---
Transthoracic Echocardiogram Patient (Last, First, Middle): Doc Greene, Gender: Male Date of : 1970 Age: 50 Procedure Date: 09/27/2020 Procedure Type: Transthoracic Echocardiogram Location: ICU Height: 177.8 cm Weight: 95.26 kg BSA: 2.13 m2 Heart Rate: bpm BP: 119 / 78 mmHg Straw Hat Machine Operator: RUSTY Referring MD: Cosmo Rojas MD Bpm Architect: Tr Daniel MD Symptoms: stroke with bubble study Study Quality: Good ECG Rhythm: Sinus Conclusions: - 1. Essentially normal study with no clear evidence of PFO although somewhat of a suboptimal study Findings Left Ventricle Normal left ventricular size, thickness, and systolic function. The visually estimated ejection fraction is between 60-65%. Diastolic function is normal for age. Right Ventricle Normal right ventricular cavity size and systolic function. Atria Both atria are normal in size. Interatrial shunt cannot be excluded by agitated saline. Aortic Valve Normal aortic valve structure and function. There is no aortic valve stenosis. There is no aortic valve regurgitation. Mitral Valve Normal mitral valve structure and function. There is trace mitral valve regurgitation. There is no mitral valve stenosis. Pulmonic Valve The pulmonic valve was not well visualized. Tricuspid Valve Likely normal tricuspid valve structure and function. Tricuspid regurgitation envelope is inadequate for calculation of right ventricular systolic pressure. Great Vessels All visible segments of the aorta are normal in size. The pulmonary artery was not well visualized. Venous The inferior vena cava is normal in size and collapses greater than 50% with inspiration. Pericardium/Pleural There is no evidence of pericardial effusion. Recommendations, Care & Conclusions Consider a JAYDEN if clinically appropriate. Measurements 2D Linear Measurements RVIDd: 2.91 RVIDd Index: 1.37 IVSd: 0.93 0.6-0.9/0.6-1.0 cm LVIDd: 5.05 3.9-5.3/4.2-5.9 cm LVIDd Index: 2.37 2.4-3.2/2.2-3.1 cm/m2 LVIDs: 3.23 2.0-3.6 cm LVPWd: 1.22 0.7-1.1 cm Ao Root: 3.30 2.1-3.5 cm LA Diam: 3.50 2.7-3.8/3.0-4.0 cm LAIDs Index: 1.64 1.5-2.3 cm/m2 LV Mass: 254.40 67-162/88-224 g LV Mass Index: 119.44 43-95/49-115 g/m2 LVOT Diam: 2.20 3.0+(-)1.3 cm 2D Systolic Function EF 4C: 56.30 >55% EF 2C: 65.90 >55% EF BiP: 60.10 >55% Mitral Valve MV Pk E: 0.60 MV PK A: 0.55 MV Decel Time: 234.00 E/A: 1.10 E'Lateral: 10.90 E'Medial: 7.07 E/E' Med: 8.50 E/E' Lat: 5.50 Aortic Valve AoV Pk Ronni: 1.16 AoV Mn Ronni: 0.79 AoV VTI: 0.21 AoV Pk Grad: 5.00 Aov Mn Grad: 3.00 DEMETRA Cont.VTI: 3.21 LVOT LVOT Pk Ronni: 0.84 LVOT Mn Ronni: 0.60 LVOT VTI: 0.17 LVOT Pk Grad: 3.00 LVOT Mn Grad: 2.00 LVOT Diam: 2.20 LVOT Area: 3.80 Diastolic Function MV Pk E: 0.60 MV Pk A: 0.55 E/A: 1.10 E'Medial: 7.07 E/E' Med: 8.50 E' Laterial: 10.90 E/E' Lat: 5.50 Right Ventricle TAPSE (mm): 19.00 TVS' Ronni: 10.90 Tricuspid Valve RA Press: 3.00 Great Vessels Aorta Ao Root-2D: 3.30 2.0-3.7 cm Ao Asc: 2.90 2.1-3.4 cm Ao Arch: 2.70 Updated in Other Vendor System with Status of Final Tr Daniel MD electronically signed on 09/27/2020 3:56:54 PM with status of Final
[2020-09-27 19:44] LABS: Glucose, Whole Blood 160 mg/dL (60-115)
[2020-09-27] MEDS: Prazosin HCL 1 MG CAPSULE 2 MG PO (20:59)
[2020-09-27] MEDS: metFORMIN HCl 1,000 MG TABLET 1000 MG PO (21:00)
[2020-09-27] MEDS: buPROPion HCl XL 300 MG TAB.ER.24H PO (21:00)
[2020-09-27] MEDS: Atorvastatin Calcium 80 MG TABLET PO (21:00)
[2020-09-27] MEDS: traZODone HCL 100 MG TABLET PO (21:00)
[2020-09-28 03:42] VITALS: BP 117/64; PULSE 81; RESP 17; TEMP 36.6; O2SAT 95
[2020-09-28 07:34] VITALS: BP 118/70; PULSE 81; RESP 16; TEMP 35.9; O2SAT 94
[2020-09-28 07:57] LABS: Glucose, Whole Blood 202 mg/dL (60-115)
[2020-09-28] MEDS: Insulin Lispro 100 UNIT/ML 3 ML VIAL SUBCUT (08:41)
[2020-09-28] MEDS: Gabapentin 400 MG CAPSULE PO (08:42)
[2020-09-28] MEDS: 0.9 % Sodium Chloride Flush 3 ML SYRINGE IVFLUSH (08:42)
[2020-09-28] MEDS: Omeprazole 20 MG CAPSULE.DR PO (08:43)
[2020-09-28] MEDS: Nicotine 21 MG PATCH.TD24 TRANSDERMA (08:43)
[2020-09-28] MEDS: metFORMIN HCl 1,000 MG TABLET 1000 MG PO (08:43)
[2020-09-28] MEDS: Aspirin Enteric Coated 81 MG TABLET.DR PO (08:43)
[2020-09-28] MEDS: ARIPiprazole 15 MG TABLET PO (08:43)
[2020-09-28] MEDS: Venlafaxine HCl ER 150 MG CAP.ER.24H PO (08:43)
--- NOTE | 2020-09-28 09:03 | PM.DS ---
DS: Providers Provider Date of Service: 09/28/20 Date of admission: 09/26/20 18:50 Primary care physician: [facility] Consults: 09/26/20 18:53 Consult to Neurology Routine Consulting Provider: Cesar Knowles Reason for consultation: Stroke Has provider been notified: Yes DS: Diagnosis Discharge Diagnosis (1) Acute CVA (cerebrovascular accident): Status: Acute (2) Hyperlipidemia LDL goal <70: Status: Acute (3) Diabetes: Status: Acute (4) HTN (hypertension): Status: Acute DS: Medications Discharge Medications Home Medications: Home Medications Medication Instructions Recorded Confirmed aripiprazole 15 mg tablet 15 mg PO DAILY 07/20/20 09/26/20 aspirin 81 mg tablet,delayed 81 mg PO DAILY 07/20/20 09/26/20 release bupropion HCl 300 mg 24 hr tablet, 300 mg PO BEDTIME 07/20/20 09/26/20 extended release gabapentin 400 mg capsule 400 mg PO TID 07/20/20 09/26/20 lancets 33 gauge #100 ea 07/20/20 09/26/20 metformin 1,000 mg tablet 1,000 mg PO BID 07/20/20 09/26/20 omeprazole 20 mg capsule,delayed 20 mg PO DAILY 07/20/20 09/26/20 release pen needle, diabetic 32 gauge x #50 ea 07/20/20 09/26/20 prazosin 2 mg capsule 2 mg PO BEDTIME 07/20/20 09/26/20 trazodone 100 mg tablet 100 mg PO BEDTIME 07/20/20 09/26/20 venlafaxine 150 mg 150 mg PO DAILY 07/20/20 09/26/20 capsule,extended release 24 hr Previous Rx's Medication Instructions Recorded blood sugar diagnostic (FreeStyle #150 ea 07/20/20 Lite Strips) lancets 33 gauge (TRUEplus Lancets) #200 ea 07/20/20 insulin aspart U-100 100 unit/mL 15 unit SUBCUT TID #15 ml 08/10/20 (3 mL) subcutaneous pen (Novolog Flexpen U-100 Insulin aspart) insulin degludec 100 unit/mL (3 60 unit SUBCUT QPM 30 Days #30 ml 08/10/20 mL) subcutaneous pen loperamide 2 mg capsule (Imodium 2 mg PO Q6H PRN #30 cap 08/24/20 A-D) dulaglutide 1.5 mg/0.5 mL 1.5 mg SUBCUT QWEEK 28 Days #2 ml 08/30/20 [facility] atorvastatin 40 mg tablet 40 mg PO BEDTIME #90 tab 09/05/20 DS: Summary Hospital Course Hospital Course: Mr. Braxton Quiñones was admitted to the ICU last night after being given tPA in the ED for a presumed stroke. The patient is a 50-year-old male w underlying history of diabetes, hypertension, coronary disease status post minor [place] about 5 years ago but without any heart intervention, current smoker, anxiety, chronic diarrhea, GERD, peripheral neuropathy, and hyperlipidemia. The patient lives at home, does not use any assistive devices to ambulate.? 30 pack-year smoker, social alcohol, no drugs. BIBA to the ED yesterday after developing right upper and lower extremity weakness while pulling into his driveway at home.? Also had some dysarthria, but no aphasia.? See H&P for details.? Head CT and CTA negative.? Given tPA in the ED and then transferred to ICU for monitoring.? Right-sided weakness and speech ability were already starting to improve before he left the ED.? Also had his MRI before he left the ED; the MRI showed no evidence of a stroke. In ICU, patient developed the headache.? A repeat head CT at that time was still negative. The next morning, he was fully awake and appropriate.? Was still complaining of a headache and treated with Tyelnol.. ?Speech is normal.? No facial droop or other gross cranial nerve abnormalities.? Right upper and lower extremity motor strength are 5-/5, He was transfer to medical floor and was evaluated by Dr. Baker with the following assessment and recommendtation.: ?Status post TPA.? His back to his baseeline with complete recovery.? MRI shows no acute infarct.?? This was a prolonged TIA.? One would've expected to see some ischemic changes over this period of time.? It also raises the possibility if this was a conversion reaction.? He can be discharged on aspirin 81 mg a day, atorvastatin 80 mg a day. (2) Hyperlipidemia LDL goal <70: IMPRESSION:? 50-year-old male with multiple risk factors presented to the ED with symptoms/signs compatible with a left CVA.? Nothing showed up on CT scan, CTA, or MRI.? At this point diagnosis is aborted stroke.. Will add ASA 81, and Lipittor 80. Final Diagnosis: Stroke\ HTN HLD Time Spent with Patient Time attestation: Total time spent providing and/or coordinating discharge services: Discharge coordination time: Greater than 30 minutes Quality: Stroke Does the patient have a stroke diagnosis?: Yes Reason for No Anti-thrombotic at DC: N/A - Med Ordered Reason for No Anticoagulant at DC: N/A - Med Ordered Reason Not Initiating IV-Tpa: N/A - Med Ordered Reason for No Anti-thrombotic by Day Two: N/A - Med Ordered Reason for No Statin at DC: N/A - Med Ordered Physical Exam Vital Signs: Vital Signs: Last Vital Signs Temp 96.7 F L 09/28/20 07:34 Pulse 81 09/28/20 07:34 Resp 16 09/28/20 07:34 BP 118/70 09/28/20 07:34 Pulse Ox 94 09/28/20 07:34 Body Mass Index 29.4 Constitutional Awake and Alert, No apparent distress Neck Supple, No lymphadenopathy Cardiovascular RRR, No M/R/G, S1 S2, No S3 S4, No pedal edema Respiratory Lungs clear, No respiratory distress Gastrointestinal Non tender, Non-distended Skin No rash Neurological Alert & oriented x3 Psychological Appropriate affect DS: Data Data Completed and Pending Labs on day of discharge: Laboratory Results - last 24 hr 09/27/20 09/27/20 09/27/20 11:30 16:27 19:40 POC Glucose 315 H 164 H 160 H 09/28/20 07:35 POC Glucose 202 H Discharge Plan Discharge Anticipated Discharge Date/Time: 09/28/20 08:53 Patient Disposition: Home, Self-Care Discharge Diagnosis: CVA Referrals: [facility] [Outside] - 1 Week Center,[facility] [Primary Care Provider] - 1 Week Discharge Medications: New aspirin 81 mg tablet,delayed release (DR/EC) 81 mg PO DAILY Qty: 90 RF: 0 atorvastatin [Lipitor] 80 mg tablet 80 mg PO BEDTIME Qty: 30 RF: 0 Continued insulin aspart U-100 [Novolog Flexpen U-100 Insulin] 100 unit/mL (3 mL) insulin pen 15 unit subcut TID Qty: 15 RF: 3 insulin degludec 100 unit/mL (3 mL) insulin pen 60 unit subcut QPM 30 Days Qty: 30 RF: 1 bupropion HCl 300 mg tablet extended release 24 hr 300 mg PO BEDTIME RF: 0 aripiprazole 15 mg tablet 15 mg PO DAILY RF: 0 prazosin 2 mg capsule 2 mg PO BEDTIME RF: 0 omeprazole 20 mg capsule,delayed release(DR/EC) 20 mg PO DAILY RF: 0 trazodone 100 mg tablet 100 mg PO BEDTIME RF: 0 venlafaxine 150 mg capsule,extended release 24hr 150 mg PO DAILY RF: 0 gabapentin 400 mg capsule 400 mg PO TID RF: 0 (DME) pen needle, diabetic 32 gauge x 5/32 needle See Rx Instructions ea .ROUTE .MEDSUPPLY Qty: 50 RF: 0 (DME) lancets 33 gauge misc See Rx Instructions ea Not Applicable BID Qty: 100 RF: 0 metformin 1,000 mg tablet 1,000 mg PO BID RF: 0 aspirin 81 mg tablet,delayed release (DR/EC) 81 mg PO DAILY RF: 0 (DME) FreeStyle Lite Strips Strip See Rx Instructions .ROUTE .MEDSUPPLY Qty: 150 RF: 11 (DME) lancets [TRUEplus Lancets] 33 gauge misc See Rx Instructions .ROUTE .MEDSUPPLY Qty: 200 RF: 11 loperamide [Imodium A-D] 2 mg capsule 2 mg PO Q6H PRN (Reason: loose stool) Qty: 30 RF: 0 Trulicity 1.5 mg/0.5 mL pen injector 1.5 mg subcut QWEEK 28 Days Qty: 2 RF: 3 Discontinued atorvastatin 40 mg tablet 40 mg PO BEDTIME Qty: 90 RF: 1 Discharge Orders: Discharge Order (Routine); Ordered 09/28/20 Ordered By: Dudley Cary Diet: advance to usual diet Activity on Discharge: As tolerated Stand Alone Forms: Patient Portal Discharge page Care Plan Goals: future stroke prevention Health Concerns: diabetes, hld, htn Plan of Treatment: Take all you blood Assessment: Take all your medication as above and follow up witn your Doctor in a week
--- NOTE | 2020-09-28 09:46 | MHC.CM.PN ---
PATIENT IS DISCHARGED HOME - SELF CARE. HE WILL BE USING [facility] IF HIS MOTHER IS UNABLE TO TRANSPORT. RN AWARE OF PLAN. IMM 09/27 IN CHART.
--- NOTE | 2020-09-28 10:13 | W.MHC.F2F ---
Service Date Service Date: 09/28/20 Reasons for Services Signs and symptoms assessed: Stroke, Homebound: Leaving the home is medically contraindicated at this time without the asist of a device and/or another person due th the listed conditions above and below. Homebound supporting statement: homebound due to acute stroke requiring hospitalization and therefore needs the asistance of another person Certification: Based on the above findings, I certify that this patient is confined to the home and needs intermittent care home care, physical therapy and/or speech therapy, or continues to need occupational therapy. The patient is under my care, and I have initiated the establishment of the plan of care. The patient will be followed by a physician who will periodically review the plan of care.
--- NOTE | 2020-09-28 10:23 | MHC.CM.PN ---
PATIENT WILL DISCHARGE HOME TODAY WITH [facility]. RN AND PATIENT AWARE OF PLAN. FAMILY TO TRANSPORT.
[2020-09-28 10:48] VITALS: BP 118/70; PULSE 81; O2SAT 94
--- NOTE | 2020-09-28 12:33 | MHC.STROKE ---
LATE ENTRY FOR 09/26/20 1724, TPA ALTEPLASE ADMINISTRATION WAS GIVEN 3 MINUTES AFTER THE [address] RAND BECAUSE SHE WAS CLARIFYING ELIGIBILITY DUE TO HIS PHYSICAL EXAM FINDINGS AND DBP WAS 100. ALL STROKE MEASURES MET, SMOKING CESSATION EDUCATION WAS DONE AND A NICOTINE PATCH WAS ALSO ORDERED AT THE TIME OF DISCHARGE.
== END 2020-09-28 11:07 | disposition home health service (06) | DRG 62 ==
LOC: HO.ED 18:37 → HO.ICU 19:17 → HO.S3 09-27 17:16
PROVIDERS: Admitting Provider Anesthesiology; Emergency Provider Emergency Medicine; Visit Provider Internal Medicine
DX: I63.9 Cerebral infarction, unspecified (principal); G81.91 Hemiplegia, unspecified affecting right dominant side; R29.706 NIHSS score 6; R20.0 Anesthesia of skin; F41.9 Anxiety disorder, unspecified; I25.10 Atherosclerotic heart disease of native coronary artery without angina pectoris; I10 Essential (primary) hypertension; R47.1 Dysarthria and anarthria; E78.5 Hyperlipidemia, unspecified; R29.810 Facial weakness; E11.9 Type 2 diabetes mellitus without complications; F32.9 Major depressive disorder, single episode, unspecified; Z20.822 Contact with and (suspected) exposure to COVID-19; Z79.82 Long term (current) use of aspirin; Z79.4 Long term (current) use of insulin; Z79.899 Other long term (current) drug therapy
CPT/HCPCS: 0241U; 36415; 70450; 70496; 70498; 70551; 80048; 80061; 82077; 82550; 82947; 84484; 85025; 85027; 85610; 85730; 92610; 93005; 93306; 96374; 97110; 97116; 97161; 97166; 97535; 99285; J2997; Q9967

== ENCOUNTER 2020-10-01 17:46 | Emergency (ER) | payer OTHER, SELFPAY ==
[2020-10-01] VITALS (13 sets, daily range): BP systolic 84–132; BP diastolic 46–91; PULSE 71–90; RESP 16–18; TEMP 36.6–36.8; O2SAT 96–100; BMI 28.7
--- NOTE | ~2020-10-01 | XR_ITS ---
EXAMINATION: XR CHEST CLINICAL INFORMATION: Leukocytosis. COMPARISON: Most recent chest radiograph dated 08/20/2020. TECHNIQUE: Frontal view of the chest was obtained. FINDINGS: The lungs are clear. The cardiomediastinal silhouette is normal in size. There is no pleural effusion or pneumothorax. No acute osseous abnormality. XR/XR chest 1V IMPRESSION: No acute cardiopulmonary findings.
--- NOTE | 2020-10-01 18:15 | ECG_ITS ---
Test Reason : dizziness Blood Pressure : / mmHG Vent. Rate : 082 BPM Atrial Rate : 082 BPM P-R Int : 148 ms QRS Dur : 096 ms QT Int : 390 ms P-R-T Axes : 043 -28 039 degrees QTc Int : 455 ms Normal sinus rhythm Septal infarct (cited on or before 26-SEP-2020) Abnormal ECG When compared with ECG of 26-SEP-2020 17:40, No significant change was found Referred By: Aruna Carvajal Electronically Signed By:INDY SWIFT
--- NOTE | 2020-10-01 18:17 | ED.DIZZY ---
HPI - Dizziness General Chief Complaint: Dizziness Stated Complaint: DIZZINESS Time Seen by Provider: 10/01/20 18:04 Source: patient and EMS Mode of arrival: EMS Limitations: no limitations History of Present Illness HPI Narrative: Patient comes to the emergency room complaining of dizziness. Patient states that earlier this afternoon, patient was sitting, when he stood up he started blacking out. He did not lose consciousness, he was able to sit back down. Patient try getting up again, and same thing happen. Patient states that as long as he does not try to get up he feels well. At this moment, patient is in the stretcher, states he is asymptomatic. Patient denies chest pain, no shortness of breath, no visual changes, no extremity numbness tingling or weakness. Of note, patient was discharged 3 days ago from the hospital, patient was admitted for CVA/prolonged TIA. At home, patient takes lisinopril and prazosin for BPH. Patient states that at home his blood pressure was 77 systolic, EMS gave him 0.5 L of normal saline, on arrival to the emergency room his blood pressure is in the mid 90s. Related Data Home Medications Medication Instructions Recorded Confirmed aripiprazole 15 mg tablet 15 mg PO DAILY 07/20/20 09/26/20 aspirin 81 mg tablet,delayed 81 mg PO DAILY 07/20/20 09/26/20 release bupropion HCl 300 mg 24 hr tablet, 300 mg PO BEDTIME 07/20/20 09/26/20 extended release gabapentin 400 mg capsule 400 mg PO TID 07/20/20 09/26/20 lancets 33 gauge #100 ea 07/20/20 09/26/20 metformin 1,000 mg tablet 1,000 mg PO BID 07/20/20 09/26/20 omeprazole 20 mg capsule,delayed 20 mg PO DAILY 07/20/20 09/26/20 release pen needle, diabetic 32 gauge x #50 ea 07/20/20 09/26/20 prazosin 2 mg capsule 2 mg PO BEDTIME 07/20/20 09/26/20 trazodone 100 mg tablet 100 mg PO BEDTIME 07/20/20 09/26/20 venlafaxine 150 mg 150 mg PO DAILY 07/20/20 09/26/20 capsule,extended release 24 hr Previous Rx's Medication Instructions Recorded blood sugar diagnostic (FreeStyle #150 ea 07/20/20 Lite Strips) lancets 33 gauge (TRUEplus Lancets) #200 ea 07/20/20 insulin aspart U-100 100 unit/mL 15 unit SUBCUT TID #15 ml 08/10/20 (3 mL) subcutaneous pen (Novolog Flexpen U-100 Insulin aspart) insulin degludec 100 unit/mL (3 60 unit SUBCUT QPM 30 Days #30 ml 08/10/20 mL) subcutaneous pen loperamide 2 mg capsule (Imodium 2 mg PO Q6H PRN #30 cap 08/24/20 A-D) dulaglutide 1.5 mg/0.5 mL 1.5 mg SUBCUT QWEEK 28 Days #2 ml 08/30/20 subcutaneous pen injector (Trulicity) aspirin 81 mg tablet,delayed 81 mg PO DAILY #90 tab 09/28/20 release atorvastatin 80 mg tablet (Lipitor) 80 mg PO BEDTIME #30 tab 09/28/20 Allergies Allergy/AdvReac Type Severity Reaction Status Date / Time No Known Allergies Allergy Unverified 08/30/20 14:52 [No Known Allergies*] Review of Systems Review of Systems: Constitutional : No Weight loss, No Fever, No Chills, No Night Sweats, No Fatigue, No Malaise ENT/Mouth : No Hearing loss, No Ear Pain, No Nasal Congestion, No Sinus Pain, No Hoarseness, No sore throat, No Rhinorrhea, No Swallowing Difficulty Eyes: No Eye Pain, No Swelling, No Redness, No Foreign Body, No Discharge, No Vision Changes Cardiovascular : No Chest Pain, No SOB, No Dyspnea on Exertion, No Orthopnea, No Edema, No Palpitations Respiratory : No Cough, No Sputum, No Wheezing, No Smoke Exposure, No Dyspnea Gastrointestinal : No Nausea, No Vomiting, No Diarrhea, No Constipation, No abdominal Pain, No Hematochezia, No Melena Genitourinary : no irregular bleeding, No Dysuria, No Urinary Frequency, No Hematuria, No Urinary Incontinence, No Urgency, No Flank Pain, No Urinary Flow Changes, No Hesitancy Musculoskeletal : No joint pain, No Myalgias, No Joint Swelling Skin : No Skin Lesions, No rash Neuro : No Weakness, No Numbness, No Paresthesias, near syncopal episode when standing Psych : No Anxiety/Panic, No Depression, No SI/HI/AH/VH, No Social Issues, Heme/Lymph: No Bruising, No Bleeding,No Lymphadenopathy Endocrine : No Polyuria, No Polydipsia, No Temperature Intolerance [facility] Past Medical History Medical History Anxiety Arthritis Depression Diabetes High cholesterol High cholesterol History of myocardial infarction HTN (hypertension) Hyperlipidemia LDL goal <70 Normal echocardiogram Surgical History H/O cardiac catheterization History of appendectomy Hx of foot surgery Family History Family History Mother Alzheimer disease HTN (hypertension) Father Old age Brother Diabetes mellitus Maternal Grandmother Diabetes mellitus Heart disease Social History Social History (Updated 08/24/20 @ 09:14 by Romana Carbajal PA-C) Household Members: Family Household Members Other:: Roommate Housing: House Do you presently have visiting nurse or other home services: No Alcohol intake: current Alcohol intake frequency: a few times a month Patient Tobacco Use Status: Current everyday Tobacco user Tobacco use type: Cigarette Second Hand Smoke Exposure: Yes Substance Use Type: Crack/Cocaine and Other Advance Directives: No Advance Directives Information Provided: Yes service: No Physical Exam Vital Signs: Vital Signs: Last Vital Signs Temp 97.9 F 10/01/20 22:00 Pulse 83 10/01/20 22:04 Resp 16 10/01/20 22:00 BP 113/63 10/01/20 22:04 Pulse Ox 99 10/01/20 22:00 Body Mass Index 28.7 Const: Other: Appearance: Alert. Oriented X3. No acute distress. Eyes: Pupils equal, round and reactive to light. ENT: Pharynx normal. Neck: Normal inspection. Neck supple. No lymph nodes noted. No crepitus CVS: Normal heart rate and rhythm. Pulses normal. Normal S1 and S2 Respiratory: No respiratory distress. Breath sounds normal. No Wheezing. No rales Abdomen: Soft and nontender. No rigidity. No distention. Skin: Skin warm and dry. Normal skin color. Normal skin turgor. Extremities: No lower extremity edema. . No Lacerations. No Rash Neuro: Oriented X 3. No motor deficit. No sensory deficit. Moving all extermities. No slurred speech. Cranial nerves 2-12 grossly intact Course Course Course Narrative: After IV hydration, creatinine is now normal. Patient's orthostatics are negative, patient is asymptomatic. Patient's near syncopal episode likely to dehydration/orthostatic hypotension. MDM - Dizziness Lab Data Result diagrams: 10/01/20 18:22 10/01/20 20:57 Labs: Lab Results 10/01/20 10/01/20 10/01/20 Range/Units 18:22 18:22 18:22 WBC 13.1 H (4.8-10.8) X10*3/uL RBC 4.05 L (4.60-5.80) X10*6/uL Hgb 13.6 L (14.0-18.0) g/dl Hct 38.4 L (42-52) % MCV 94.8 (80-98) fL MCH 33.6 H (27.0-33.0) pg MCHC 35.4 (31.0-36.0) g/dl RDW 12.7 (11.0-16.0) % Plt Count 196 (160-400) X10*3/uL MPV 11.1 (9.4-12.4) fL Immature Gran % (Auto) 0.2 (0.0-0.4) % Neut % (Auto) 50.2 (45-73) % Lymph % (Auto) 36.7 (20-40) % [place] % (Auto) 10.1 (2-11) % Eos % (Auto) 2.0 (0-4) % Baso % (Auto) 0.8 (0-2) % Lymph # (Auto) 4.8 (1.2-4.9) X10*3/uL [place] # (Auto) 1.3 H (0.1-1.2) X10*3/uL Eos # (Auto) 0.3 (0.0-0.4) X10*3/uL Baso # (Auto) 0.1 (0.0-0.2) X10*3/uL Abs Immat Gran (auto) 0.03 (0.00-0.03) X10*3/uL Absolute Neuts (auto) 6.6 (2.0-8.3) X10*3/uL Absolute Nucleated RBC 0.000 (0.0-0.012) X10*3/uL Nucleated RBC % (auto) 0.0 (0.0-0.2) /100WBC Sodium 140 (135-145) mmol/L Potassium 3.8 (3.3-5.1) mmol/L Chloride 105 (96-108) mmol/L Carbon Dioxide 22 (22-29) mmol/L Anion Gap 17 (12-20) BUN 24 H (9-16) mg/dL Creatinine 1.69 H (0.5-1.4) mg/dL Estim Creat Clear Calc 59.8 Estimated GFR 43 Random Glucose 174 H (60-115) mg/dL Calcium 8.8 (8.4-10.2) mg/dL Troponin I High Sens < 3.5 (<3.5-35.0) ng/L 10/01/20 Range/Units 20:57 WBC (4.8-10.8) X10*3/uL RBC (4.60-5.80) X10*6/uL Hgb (14.0-18.0) g/dl Hct (42-52) % MCV (80-98) fL MCH (27.0-33.0) pg MCHC (31.0-36.0) g/dl RDW (11.0-16.0) % Plt Count (160-400) X10*3/uL MPV (9.4-12.4) fL Immature Gran % (Auto) (0.0-0.4) % Neut % (Auto) (45-73) % Lymph % (Auto) (20-40) % [place] % (Auto) (2-11) % Eos % (Auto) (0-4) % Baso % (Auto) (0-2) % Lymph # (Auto) (1.2-4.9) X10*3/uL [place] # (Auto) (0.1-1.2) X10*3/uL Eos # (Auto) (0.0-0.4) X10*3/uL Baso # (Auto) (0.0-0.2) X10*3/uL Abs Immat Gran (auto) (0.00-0.03) X10*3/uL Absolute Neuts (auto) (2.0-8.3) X10*3/uL Absolute Nucleated RBC (0.0-0.012) X10*3/uL Nucleated RBC % (auto) (0.0-0.2) /100WBC Sodium 142 (135-145) mmol/L Potassium 3.7 (3.3-5.1) mmol/L Chloride 110 H (96-108) mmol/L Carbon Dioxide 22 (22-29) mmol/L Anion Gap 14 (12-20) BUN 22 H (9-16) mg/dL Creatinine 1.21 (0.5-1.4) mg/dL Estim Creat Clear Calc 83.6 Estimated GFR > 60 Random Glucose 137 H (60-115) mg/dL Calcium 8.2 L D (8.4-10.2) mg/dL Troponin I High Sens (<3.5-35.0) ng/L Imaging Data Chest x-ray: Radiologist's impression: The lungs are clear. The cardiomediastinal silhouette is normal in size. There is no pleural effusion or pneumothorax. No acute osseous abnormality. XR/XR chest 1V IMPRESSION: No acute cardiopulmonary findings. Discharge Plan Discharge Clinical Impression: Orthostatic hypertension Patient Disposition: Home, Self-Care Instructions: Syncope (ED) Additional Instructions: Please follow-up with your primary care physician tomorrow. If you have any worsening or new symptoms, please return to the emergency room or call 911 Prescriptions: No Action insulin aspart U-100 [Novolog Flexpen U-100 Insulin] 100 unit/mL (3 mL) insulin pen 15 unit subcut TID Qty: 15 RF: 3 insulin degludec 100 unit/mL (3 mL) insulin pen 60 unit subcut QPM 30 Days Qty: 30 RF: 1 aspirin 81 mg tablet,delayed release (DR/EC) 81 mg PO DAILY Qty: 90 RF: 0 atorvastatin [Lipitor] 80 mg tablet 80 mg PO BEDTIME Qty: 30 RF: 0 bupropion HCl 300 mg tablet extended release 24 hr 300 mg PO BEDTIME RF: 0 aripiprazole 15 mg tablet 15 mg PO DAILY RF: 0 prazosin 2 mg capsule 2 mg PO BEDTIME RF: 0 omeprazole 20 mg capsule,delayed release(DR/EC) 20 mg PO DAILY RF: 0 trazodone 100 mg tablet 100 mg PO BEDTIME RF: 0 venlafaxine 150 mg capsule,extended release 24hr 150 mg PO DAILY RF: 0 gabapentin 400 mg capsule 400 mg PO TID RF: 0 (DME) pen needle, diabetic 32 gauge x 5/32 needle See Rx Instructions ea .ROUTE .MEDSUPPLY Qty: 50 RF: 0 (DME) lancets 33 gauge misc See Rx Instructions ea Not Applicable BID Qty: 100 RF: 0 metformin 1,000 mg tablet 1,000 mg PO BID RF: 0 aspirin 81 mg tablet,delayed release (DR/EC) 81 mg PO DAILY RF: 0 (DME) FreeStyle Lite Strips Strip See Rx Instructions .ROUTE .MEDSUPPLY Qty: 150 RF: 11 (DME) lancets [TRUEplus Lancets] 33 gauge misc See Rx Instructions .ROUTE .MEDSUPPLY Qty: 200 RF: 11 loperamide [Imodium A-D] 2 mg capsule 2 mg PO Q6H PRN (Reason: loose stool) Qty: 30 RF: 0 Trulicity 1.5 mg/0.5 mL pen injector 1.5 mg subcut QWEEK 28 Days Qty: 2 RF: 3
[2020-10-01] MEDS: 0.9 % Sodium Chloride 1,000 ML 999 ML IVCONT ×3 (18:20→19:49)
[2020-10-01 18:32] LABS: MANUAL DIFF FLAG NO
[2020-10-01 18:33] LABS: Basophils Absolute Auto 0.1 X10*3/uL (0.0-0.2); Basophils Percent Auto 0.8 % (0-2); Eosinophils Absolute Auto 0.3 X10*3/uL (0.0-0.4); Hematocrit 38.4 % (42-52); Hemoglobin 13.6 g/dl (14.0-18.0); Imm Gran Abs Auto 0.03 X10*3/uL (0.00-0.03); Imm Gran Pct Auto 0.2 % (0.0-0.4); Lymphocytes Absolute Auto 4.8 X10*3/uL (1.2-4.9); Lymphocytes Percent Auto 36.7 % (20-40); Mean Corpuscular HGB Conc 35.4 g/dl (31.0-36.0); Mean Corpuscular Hemoglobin 33.6 pg (27.0-33.0); Mean Corpuscular Volume 94.8 fL (80-98); Mean Platelet Volume 11.1 fL (9.4-12.4); Monocytes Absolute Auto 1.3 X10*3/uL (0.1-1.2); Monocytes Percent Auto 10.1 % (2-11); Neutrophils Absolute Auto 6.6 X10*3/uL (2.0-8.3); Neutrophils Percent Auto 50.2 % (45-73); Platelet Count 196 X10*3/uL (160-400); Red Blood Count 4.05 X10*6/uL (4.60-5.80); Red Cell Distribution Width 12.7 % (11.0-16.0); White Blood Count 13.1 X10*3/uL (4.8-10.8)
--- NOTE | 2020-10-01 18:43 | PC.NURSE ---
is aware of BP trends. No fever noted. No likely or known source of infection known.
[2020-10-01 18:56] LABS: Anion Gap 17 (12-20); Blood Urea Nitrogen 24 mg/dL (9-16); Calcium 8.8 mg/dL (8.4-10.2); Carbon Dioxide 22 mmol/L (22-29); Chloride 105 mmol/L (96-108); Creatinine Clr Calc Pharmacy 59.8; Estimated Glomerular Filt Rate 43; Glucose Random 174 mg/dL (60-115); Potassium 3.8 mmol/L (3.3-5.1); Sodium 140 mmol/L (135-145)
[2020-10-01 19:04] LABS: Troponin-I High Sensitivity < 3.5 ng/L (<3.5-35.0)
[2020-10-01 21:41] LABS: Anion Gap 14 (12-20); Blood Urea Nitrogen 22 mg/dL (9-16); Calcium 8.2 mg/dL (8.4-10.2); Carbon Dioxide 22 mmol/L (22-29); Chloride 110 mmol/L (96-108); Creatinine Clr Calc Pharmacy 83.6; Estimated Glomerular Filt Rate > 60; Glucose Random 137 mg/dL (60-115); Potassium 3.7 mmol/L (3.3-5.1); Sodium 142 mmol/L (135-145)
== END 2020-10-01 22:27 | disposition home or self-care (01) ==
PROVIDERS: Emergency Provider Emergency Medicine
DX: I95.1 Orthostatic hypotension (principal); R42 Dizziness and giddiness; E11.9 Type 2 diabetes mellitus without complications; I10 Essential (primary) hypertension; E78.5 Hyperlipidemia, unspecified; F17.210 Nicotine dependence, cigarettes, uncomplicated; Z79.4 Long term (current) use of insulin; Z79.82 Long term (current) use of aspirin; Z79.899 Other long term (current) drug therapy; Z79.02 Long term (current) use of antithrombotics/antiplatelets
CPT/HCPCS: 36415; 71045; 80048; 84484; 85025; 93005; 96360; 96361; 99284

== ENCOUNTER 2020-10-08 22:30 | Emergency (ER) | payer OTHER, SELFPAY ==
[2020-10-08 22:36] VITALS: BP 161/94; PULSE 88; RESP 16; TEMP 36.2; O2SAT 98; BMI 28.7
--- NOTE | 2020-10-08 23:49 | PC.NURSE ---
PATIENT HAS BEEN OUTSIDE MAKING PHONE CALLS SINCE HE WAS TRIAGED
== END 2020-10-09 02:20 | disposition left against medical advice (07) ==
PROVIDERS: Emergency Provider Emergency Medicine
DX: R42 Dizziness and giddiness (principal)
CPT/HCPCS: 99281; 99282

== ENCOUNTER → 2020-11-03 11:16 | Outpatient (BNVA) | payer OTHER, SELFPAY | PROVIDERS: Visit Provider Physician Assistant | DX: K52.9 Noninfective gastroenteritis and colitis, unspecified (principal); Z78.9 Other specified health status | CPT/HCPCS: 99212 ==

== ENCOUNTER 2020-11-07 21:17 | Emergency (ER) | payer OTHER, SELFPAY ==
[2020-11-07 21:21] VITALS: BP 148/81; PULSE 99; RESP 20; TEMP 36.6; O2SAT 100; BMI 28.4
--- NOTE | 2020-11-07 22:00 | ED.EXTPRO ---
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 left elbow pain and swelling for 5 hours. no fever no chills. Never had this before. MD Complaint: extremity pain and extremity swelling Onset (ago): hour(s) Pain Consistency: constant Location: left Relieving factors: nothing Exacerbating factors: range of motion Associated symptoms: denies other symptoms Related Data Home Medications Medication Instructions Recorded Confirmed aripiprazole 15 mg tablet 15 mg PO DAILY 07/20/20 09/26/20 aspirin 81 mg tablet,delayed 81 mg PO DAILY 07/20/20 09/26/20 release bupropion HCl 300 mg 24 hr tablet, 300 mg PO BEDTIME 07/20/20 09/26/20 extended release gabapentin 400 mg capsule 400 mg PO TID 07/20/20 09/26/20 lancets 33 gauge #100 ea 07/20/20 09/26/20 metformin 1,000 mg tablet 1,000 mg PO BID 07/20/20 09/26/20 omeprazole 20 mg capsule,delayed 20 mg PO DAILY 07/20/20 09/26/20 release pen needle, diabetic 32 gauge x #50 ea 07/20/20 09/26/20 prazosin 2 mg capsule 2 mg PO BEDTIME 07/20/20 09/26/20 trazodone 100 mg tablet 100 mg PO BEDTIME 07/20/20 09/26/20 venlafaxine 150 mg 150 mg PO DAILY 07/20/20 09/26/20 capsule,extended release 24 hr cholecalciferol (vitamin D3) 50 50 mcg PO QAM 11/03/20 mcg (2,000 unit) capsule Previous Rx's Medication Instructions Recorded blood sugar diagnostic (FreeStyle #150 ea 07/20/20 Lite Strips) lancets 33 gauge (TRUEplus Lancets) #200 ea 07/20/20 insulin aspart U-100 100 unit/mL 15 unit SUBCUT TID #15 ml 08/10/20 (3 mL) subcutaneous pen (Novolog Flexpen U-100 Insulin aspart) insulin degludec 100 unit/mL (3 60 unit SUBCUT QPM 30 Days #30 ml 08/10/20 mL) subcutaneous pen loperamide 2 mg capsule (Imodium 2 mg PO Q6H PRN #30 cap 08/24/20 A-D) dulaglutide 1.5 mg/0.5 mL 1.5 mg SUBCUT QWEEK 28 Days #2 ml 08/30/20 subcutaneous pen injector (Trulicity) aspirin 81 mg tablet,delayed 81 mg PO DAILY #90 tab 09/28/20 release atorvastatin 80 mg tablet (Lipitor) 80 mg PO BEDTIME #30 tab 09/28/20 methylcellulose (laxative) 500 mg 500 mg PO TID #90 tab 11/03/20 tablet (Citrucel) naproxen 500 mg tablet (Naprosyn) 500 mg PO BID #20 tab 11/07/20 Allergies Allergy/AdvReac Type Severity Reaction Status Date / Time No Known Allergies Allergy Unverified 11/07/20 21:24 [No Known Allergies*] Review of Systems Constitutional: Constitutional: Reports no additional constitutional complaints Eyes: Eyes: Reports no additional eye complaints ENT: Denies dizziness Cardiovascular: Cardiovascular: Reports no additional cardiovascular complaints Respiratory: Respiratory: Reports as per HPI Gastrointestinal: Gastrointestinal: Reports no additional gastrointestinal complaints Musculoskeletal: Musculoskeletal: Reports no additional musculoskeletal complaints Integumentary/Breasts: Skin/Breast: Denies rash Neurologic: Reports system reviewed and no additional complaints, except as documented, Denies dizziness and Denies Sensory deficit (Neuro) Psychiatric: Psychiatric: Denies anxiety PMFSH Past Medical History Medical History Anxiety Arthritis Depression Diabetes High cholesterol High cholesterol History of myocardial infarction HTN (hypertension) Hyperlipidemia LDL goal <70 Normal echocardiogram Surgical History H/O cardiac catheterization History of appendectomy Hx of foot surgery Family History Family History Mother Alzheimer disease HTN (hypertension) Father Old age Brother Diabetes mellitus Maternal Grandmother Diabetes mellitus Heart disease Social History Social History Household Members: Family Household Members Other:: Roommate Housing: House Do you presently have visiting nurse or other home services: No Alcohol intake: current Alcohol intake frequency: a few times a month Patient Tobacco Use Status: Current everyday Tobacco user Tobacco use type: Cigarette Second Hand Smoke Exposure: Yes Substance Use Type: Crack/Cocaine and Other Advance Directives: No Advance Directives Information Provided: No service: No Physical Exam Vital Signs: Vital Signs: Last Vital Signs Temp 98 F 11/07/20 21:21 Pulse 99 11/07/20 21:21 Resp 20 11/07/20 21:21 BP 148/81 H 11/07/20 21:21 Pulse Ox 100 11/07/20 21:21 Body Mass Index 28.4 Const: General: healthy appearing Nutritional Appearance: average body habitus Orientation/consciousness: oriented to person and patient oriented x3 Limitations: no limitations HENMT: Head: Yes normal to inspection Ears: external ears normal General nose exam: Normal external nose present Mouth: Normal oral and palatal mucosa present and oropharynx normal Throat: Yes posterior oropharynx normal Eyes: General: appearance normal, both eyes and all related structures Neck: Other: supple Neck: Yes normal visual inspection Chest: Chest palpation & inspection: normal inspection of the chest Resp: Auscultation: clear to auscultation bilaterally Cardio: Jugular venous distension: no JVD Rate: regular rate Rhythm: regular rhythm Heart sounds: S1 normal heart sound present and S2 normal heart sound present GI: Inspection: Yes normal to inspection Palpation (GI): Soft to palpation, nontender and No hepatosplenomegaly present Auscultation: normal bowel sounds : General: Yes no CVA tenderness Back/Spine/Pelvis: Back: no CVA tenderness Skin: General skin exam: no rashes or lesions noted Neuro: General: oriented to person and patient oriented x3 Cranial nerves: Yes CN's II-XII intact bilaterally Motor exam (neuro): 5/5 motor strength present throughout Sensory Exam: No Sensory deficit (Neuro) Extrem: Other: left elbow with inflammed olecranon bursa, no evidence of septic joint Psych: Appearance: grossly normal Course Reevaluation(s) Reevaluation #1: patinet with olecranon bursitis, will start NSAIDs and place compression dressing Time: 22:08 Discharge Plan Discharge Clinical Impression: Bursitis, olecranon Qualifiers: Laterality: left Qualified Code(s): M70.22 - Olecranon bursitis, left elbow Patient Disposition: Home, Self-Care Instructions: Elbow Bursitis (ED) Prescriptions: New naproxen [Naprosyn] 500 mg tablet 500 mg PO BID Qty: 20 RF: 0 No Action insulin aspart U-100 [Novolog Flexpen U-100 Insulin] 100 unit/mL (3 mL) insulin pen 15 unit subcut TID Qty: 15 RF: 3 insulin degludec 100 unit/mL (3 mL) insulin pen 60 unit subcut QPM 30 Days Qty: 30 RF: 1 aspirin 81 mg tablet,delayed release (DR/EC) 81 mg PO DAILY Qty: 90 RF: 0 atorvastatin [Lipitor] 80 mg tablet 80 mg PO BEDTIME Qty: 30 RF: 0 bupropion HCl 300 mg tablet extended release 24 hr 300 mg PO BEDTIME RF: 0 aripiprazole 15 mg tablet 15 mg PO DAILY RF: 0 prazosin 2 mg capsule 2 mg PO BEDTIME RF: 0 omeprazole 20 mg capsule,delayed release(DR/EC) 20 mg PO DAILY RF: 0 trazodone 100 mg tablet 100 mg PO BEDTIME RF: 0 venlafaxine 150 mg capsule,extended release 24hr 150 mg PO DAILY RF: 0 gabapentin 400 mg capsule 400 mg PO TID RF: 0 (DME) pen needle, diabetic 32 gauge x 5/32 needle See Rx Instructions ea .ROUTE .MEDSUPPLY Qty: 50 RF: 0 (DME) lancets 33 gauge misc See Rx Instructions ea Not Applicable BID Qty: 100 RF: 0 metformin 1,000 mg tablet 1,000 mg PO BID RF: 0 aspirin 81 mg tablet,delayed release (DR/EC) 81 mg PO DAILY RF: 0 (DME) FreeStyle Lite Strips Strip See Rx Instructions .ROUTE .MEDSUPPLY Qty: 150 RF: 11 (DME) lancets [TRUEplus Lancets] 33 gauge misc See Rx Instructions .ROUTE .MEDSUPPLY Qty: 200 RF: 11 loperamide [Imodium A-D] 2 mg capsule 2 mg PO Q6H PRN (Reason: loose stool) Qty: 30 RF: 0 cholecalciferol (vitamin D3) 50 mcg (2,000 unit) capsule 50 mcg PO QAM RF: 0 Citrucel 500 mg tablet 500 mg PO TID Qty: 90 RF: 2 Trulicity 1.5 mg/0.5 mL pen injector 1.5 mg subcut QWEEK 28 Days Qty: 2 RF: 3 Referrals: [facility] [Primary Care Provider] - 1 week
[2020-11-07] MEDS: Ketorolac Tromethamine 60 MG/2 ML VIAL IM (22:41)
== END 2020-11-07 22:53 | disposition home or self-care (01) ==
PROVIDERS: Emergency Provider Emergency Medicine
DX: M70.22 Olecranon bursitis, left elbow (principal); F14.90 Cocaine use, unspecified, uncomplicated; F17.210 Nicotine dependence, cigarettes, uncomplicated; Z71.6 Tobacco abuse counseling; Z79.899 Other long term (current) drug therapy
CPT/HCPCS: 96372; 99284; J1885

== ENCOUNTER → 2020-11-08 10:37 | Outpatient (BNVA) | payer OTHER, SELFPAY | PROVIDERS: Referring Provider Nurse Practitioner Family; Visit Provider Internal Medicine | DX: I63.9 Cerebral infarction, unspecified (principal); I48.0 Paroxysmal atrial fibrillation; I10 Essential (primary) hypertension; F14.10 Cocaine abuse, uncomplicated; E11.8 Type 2 diabetes mellitus with unspecified complications | CPT/HCPCS: 99212 ==

== ENCOUNTER 2020-11-09 07:13 | Inpatient (IN) | payer OTHER, SELFPAY ==
[2020-11-09] VITALS (7 sets, daily range): BP systolic 112–150; BP diastolic 67–87; PULSE 65–105; RESP 17–25; TEMP 36.1–37.6; O2SAT 96–100; BMI 28.4
--- NOTE | ~2020-11-09 | US_ITS ---
EXAMINATION: US VENOUS WITH DOPPLER UPPER EXTREMITY, LEFT CLINICAL INFORMATION: Pain and swelling COMPARISON: None TECHNIQUE: Ultrasound of the upper extremity is performed using compression sonography and color and pulse Doppler flow with assessment of augmentation of flow. There is also imaging and Doppler assessment of the jugular and subclavian veins. Spectral analysis with color-flow imaging is performed. FINDINGS: Respiratory variation, normal compression, and augmented flow are noted throughout the upper extremity including the axillary, brachial, cubital, and radial and ulnar veins. There is normal flow in the internal jugular and subclavian veins. There is no visible deep or superficial thrombophlebitis. US/US venous duplex UE LT IMPRESSION: No acute DVT demonstrated in the left upper extremity
--- NOTE | 2020-11-09 07:46 | ED.EXTPRO ---
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 Mode of arrival: ambulatory Limitations: no limitations History of Present Illness MD Complaint: extremity pain and extremity swelling Onset (ago): day(s) (2) Pain Consistency: constant Location: left and upper extremity Quality: aching Radiation: none Relieving factors: immobilization Exacerbating factors: range of motion Associated symptoms: other (increased rash) Context: other (seen on Saturday pain and redness has worsened) Related Data Home Medications Medication Instructions Recorded Confirmed aripiprazole 15 mg tablet 15 mg PO DAILY 07/20/20 11/08/20 bupropion HCl 300 mg 24 hr tablet, 300 mg PO BEDTIME 07/20/20 11/08/20 extended release gabapentin 400 mg capsule 400 mg PO TID 07/20/20 11/08/20 lancets 33 gauge #100 ea 07/20/20 11/08/20 metformin 1,000 mg tablet 1,000 mg PO BID 07/20/20 11/08/20 omeprazole 20 mg capsule,delayed 20 mg PO DAILY 07/20/20 11/08/20 release pen needle, diabetic 32 gauge x #50 ea 07/20/20 11/08/20 prazosin 2 mg capsule 2 mg PO BEDTIME 07/20/20 11/08/20 trazodone 100 mg tablet 100 mg PO BEDTIME 07/20/20 11/08/20 venlafaxine 150 mg 150 mg PO DAILY 07/20/20 11/08/20 capsule,extended release 24 hr cholecalciferol (vitamin D3) 50 50 mcg PO QAM 11/03/20 11/08/20 mcg (2,000 unit) capsule Previous Rx's Medication Instructions Recorded blood sugar diagnostic (FreeStyle #150 ea 07/20/20 Lite Strips) lancets 33 gauge (TRUEplus Lancets) #200 ea 07/20/20 insulin aspart U-100 100 unit/mL 15 unit SUBCUT TID #15 ml 08/10/20 (3 mL) subcutaneous pen (Novolog Flexpen U-100 Insulin aspart) insulin degludec 100 unit/mL (3 60 unit SUBCUT QPM 30 Days #30 ml 08/10/20 mL) subcutaneous pen loperamide 2 mg capsule (Imodium 2 mg PO Q6H PRN #30 cap 08/24/20 A-D) dulaglutide 1.5 mg/0.5 mL 1.5 mg SUBCUT QWEEK 28 Days #2 ml 08/30/20 subcutaneous pen injector (Trulicity) aspirin 81 mg tablet,delayed 81 mg PO DAILY #90 tab 09/28/20 release atorvastatin 80 mg tablet (Lipitor) 80 mg PO BEDTIME #30 tab 09/28/20 methylcellulose (laxative) 500 mg 500 mg PO TID #90 tab 11/03/20 tablet (Citrucel) naproxen 500 mg tablet (Naprosyn) 500 mg PO BID #20 tab 11/07/20 Allergies Allergy/AdvReac Type Severity Reaction Status Date / Time No Known Allergies Allergy Unverified 11/07/20 21:24 [No Known Allergies*] Review of Systems Review of Systems: Constitutional : No Fever, No Chills ENT/Mouth : No sore throat, No Rhinorrhea Eyes: No Eye Pain, No Swelling, No Redness Cardiovascular : No Chest Pain, No SOB Respiratory : No Cough, No Sputum Gastrointestinal : No Nausea, No Vomiting, No Diarrhea, No abdominal Pain Genitourinary : No Dysuria, No Hematuria Musculoskeletal : pos joint pain, No Myalgias, No Joint Swelling Skin : No Skin Lesions, positive skin rash Neuro : No Weakness, No Numbness, No Headache Psych : No Anxiety, No Depression Heme/Lymph: No Bruising, No Bleeding,No Lymphadenopathy Endocrine : No Polyuria, No Polydipsia All other systems reviewed and are negative [facility] Past Medical History Attestation statement: The following information was validated with the patient. Medical History Anxiety Arthritis Depression Diabetes High cholesterol High cholesterol History of myocardial infarction HTN (hypertension) Hyperlipidemia LDL goal <70 Normal echocardiogram Surgical History H/O cardiac catheterization History of appendectomy Hx of foot surgery Family History Family History Mother Alzheimer disease HTN (hypertension) Father Old age Brother Diabetes mellitus Maternal Grandmother Diabetes mellitus Heart disease Social History Social History Household Members: Family Household Members Other:: Roommate Housing: House Do you presently have visiting nurse or other home services: No Alcohol intake: current Alcohol intake frequency: does not drink Patient Tobacco Use Status: Current everyday Tobacco user Tobacco use type: Cigarette Second Hand Smoke Exposure: Yes Use of substances other than those prescribed or required for medical reasons: No Substance Use Type: Crack/Cocaine and Other Advance Directives: No Advance Directives Information Provided: No service: No Physical Exam Vital Signs: Vital Signs: Last Vital Signs Temp 99.4 F 11/09/20 08:08 Pulse 95 11/09/20 08:08 Resp 18 11/09/20 08:08 BP 112/84 11/09/20 08:08 Pulse Ox 100 11/09/20 08:08 Body Mass Index 28.4 Appearance: Alert. Oriented X3. No acute distress. Eyes: Pupils equal, round and reactive to light. ENT: Pharynx normal. Neck: Normal inspection. Neck supple. CVS: Normal heart rate and rhythm. Pulses normal. Respiratory: No respiratory distress. Breath sounds normal. Abdomen: Soft and nontender. Skin: Skin warm and dry. Normal skin turgor. Extremities: L elbow pos olecranon bursitis noted now swelling on L forearm and erythema around the olecranon and onto the forearm - full ROM distal NV intact Neuro: Oriented X 3. No motor deficit. No sensory deficit. Course Course Course Narrative: given WBC count 18K, DM rapid redness will admit MDM - Extremity (Nontraumatic) MDM Narrative Medical decision making narrative: 50 yo male with DM, HTN, HLD, here with 2 days of L elbow pain - bursitis dx on Saturday but to me it looks cellulitic now. At this time will need labs, DVT study - he has full ROM of motion of the joint I doubt that he has a septic joint the bursa itself is swollen but not as inflammed as I would suspect given his degree of cellulitis. Will give IV morphine for pain and start on IV zosyn/vancomycin. Dispo per resuts and findings. Lab Data Result diagrams: 11/09/20 08:18 11/09/20 08:18 Labs: Lab Results 11/09/20 11/09/20 11/09/20 Range/Units 08:14 08:18 08:18 WBC 18.0 H (4.8-10.8) X10*3/uL RBC 4.28 L (4.60-5.80) X10*6/uL Hgb 14.1 (14.0-18.0) g/dl Hct 40.8 L (42-52) % MCV 95.3 (80-98) fL MCH 32.9 (27.0-33.0) pg MCHC 34.6 (31.0-36.0) g/dl RDW 12.7 (11.0-16.0) % Plt Count 198 (160-400) X10*3/uL MPV 11.3 (9.4-12.4) fL Immature Gran % (Auto) 0.6 H (0.0-0.4) % Neut % (Auto) 70.4 (45-73) % Lymph % (Auto) 19.6 L (20-40) % Dubois % (Auto) 8.4 (2-11) % Eos % (Auto) 0.4 (0-4) % Baso % (Auto) 0.6 (0-2) % Lymph # (Auto) 3.5 (1.2-4.9) X10*3/uL Dubois # (Auto) 1.5 H (0.1-1.2) X10*3/uL Eos # (Auto) 0.1 (0.0-0.4) X10*3/uL Baso # (Auto) 0.1 (0.0-0.2) X10*3/uL Abs Immat Gran (auto) 0.10 H (0.00-0.03) X10*3/uL Absolute Neuts (auto) 12.7 H (2.0-8.3) X10*3/uL Absolute Nucleated RBC 0.000 (0.0-0.012) X10*3/uL Nucleated RBC % (auto) 0.0 (0.0-0.2) /100WBC Smear Tech's Comments VERIFIED Sodium 140 (135-145) mmol/L Potassium 4.1 (3.3-5.1) mmol/L Chloride 105 (96-108) mmol/L Carbon Dioxide 25 (22-29) mmol/L Anion Gap 14 (12-20) BUN 13 (9-16) mg/dL Creatinine 0.70 (0.5-1.4) mg/dL Estim Creat Clear Calc 143.9 Estimated GFR > 60 Random Glucose 145 H (60-115) mg/dL Lactic Acid (0.5-2.0) mmol/L Calcium 9.0 D (8.4-10.2) mg/dL Magnesium 1.6 (1.6-2.6) mg/dL Total Bilirubin 1.7 H (0.0-1.0) mg/dL Direct Bilirubin 0.5 (0.0-0.5) mg/dL AST 26 (5-37) U/L ALT 33 (0-40) U/L Alkaline Phosphatase 114 (39-117) U/L Total Protein 7.5 (6.5-8.0) g/dL Albumin 4.0 (3.5-5.0) g/dL COVID-19 (DANIEL) Positive A (Negative) COVID-19 Clin Com See Note 11/09/20 Range/Units 08:18 WBC (4.8-10.8) X10*3/uL RBC (4.60-5.80) X10*6/uL Hgb (14.0-18.0) g/dl Hct (42-52) % MCV (80-98) fL MCH (27.0-33.0) pg MCHC (31.0-36.0) g/dl RDW (11.0-16.0) % Plt Count (160-400) X10*3/uL MPV (9.4-12.4) fL Immature Gran % (Auto) (0.0-0.4) % Neut % (Auto) (45-73) % Lymph % (Auto) (20-40) % Dubois % (Auto) (2-11) % Eos % (Auto) (0-4) % Baso % (Auto) (0-2) % Lymph # (Auto) (1.2-4.9) X10*3/uL Dubois # (Auto) (0.1-1.2) X10*3/uL Eos # (Auto) (0.0-0.4) X10*3/uL Baso # (Auto) (0.0-0.2) X10*3/uL Abs Immat Gran (auto) (0.00-0.03) X10*3/uL Absolute Neuts (auto) (2.0-8.3) X10*3/uL Absolute Nucleated RBC (0.0-0.012) X10*3/uL Nucleated RBC % (auto) (0.0-0.2) /100WBC Smear Tech's Comments Sodium (135-145) mmol/L Potassium (3.3-5.1) mmol/L Chloride (96-108) mmol/L Carbon Dioxide (22-29) mmol/L Anion Gap (12-20) BUN (9-16) mg/dL Creatinine (0.5-1.4) mg/dL Estim Creat Clear Calc Estimated GFR Random Glucose (60-115) mg/dL Lactic Acid 0.9 (0.5-2.0) mmol/L Calcium (8.4-10.2) mg/dL Magnesium (1.6-2.6) mg/dL Total Bilirubin (0.0-1.0) mg/dL Direct Bilirubin (0.0-0.5) mg/dL AST (5-37) U/L ALT (0-40) U/L Alkaline Phosphatase (39-117) U/L Total Protein (6.5-8.0) g/dL Albumin (3.5-5.0) g/dL COVID-19 (DANIEL) (Negative) COVID-19 Clin Com Discharge Plan Discharge Clinical Impression: COVID-19, Cellulitis, Bursitis, Leukocytosis Patient Disposition: Admitted As Inpatient Prescriptions: No Action insulin aspart U-100 [Novolog Flexpen U-100 Insulin] 100 unit/mL (3 mL) insulin pen 15 unit subcut TID Qty: 15 RF: 3 insulin degludec 100 unit/mL (3 mL) insulin pen 60 unit subcut QPM 30 Days Qty: 30 RF: 1 naproxen [Naprosyn] 500 mg tablet 500 mg PO BID Qty: 20 RF: 0 aspirin 81 mg tablet,delayed release (DR/EC) 81 mg PO DAILY Qty: 90 RF: 0 atorvastatin [Lipitor] 80 mg tablet 80 mg PO BEDTIME Qty: 30 RF: 0 bupropion HCl 300 mg tablet extended release 24 hr 300 mg PO BEDTIME RF: 0 aripiprazole 15 mg tablet 15 mg PO DAILY RF: 0 prazosin 2 mg capsule 2 mg PO BEDTIME RF: 0 omeprazole 20 mg capsule,delayed release(DR/EC) 20 mg PO DAILY RF: 0 trazodone 100 mg tablet 100 mg PO BEDTIME RF: 0 venlafaxine 150 mg capsule,extended release 24hr 150 mg PO DAILY RF: 0 gabapentin 400 mg capsule 400 mg PO TID RF: 0 (DME) pen needle, diabetic 32 gauge x 5/32 needle See Rx Instructions ea .ROUTE .MEDSUPPLY Qty: 50 RF: 0 (DME) lancets 33 gauge misc See Rx Instructions ea Not Applicable BID Qty: 100 RF: 0 metformin 1,000 mg tablet 1,000 mg PO BID RF: 0 (DME) FreeStyle Lite Strips Strip See Rx Instructions .ROUTE .MEDSUPPLY Qty: 150 RF: 11 (DME) lancets [TRUEplus Lancets] 33 gauge misc See Rx Instructions .ROUTE .MEDSUPPLY Qty: 200 RF: 11 loperamide [Imodium A-D] 2 mg capsule 2 mg PO Q6H PRN (Reason: loose stool) Qty: 30 RF: 0 cholecalciferol (vitamin D3) 50 mcg (2,000 unit) capsule 50 mcg PO QAM RF: 0 Citrucel 500 mg tablet 500 mg PO TID Qty: 90 RF: 2 Trulicity 1.5 mg/0.5 mL pen injector 1.5 mg subcut QWEEK 28 Days Qty: 2 RF: 3
[2020-11-09] MEDS: Morphine Sulfate 4 MG/ML CARTRIDGE IVPUSH (08:24)
[2020-11-09] MEDS: 0.9 % Sodium Chloride 1,000 ML 999 ML IVCONT (08:24)
[2020-11-09] MEDS: ondansetron HCL 4 MG/2 ML VIAL IVPUSH (08:25)
[2020-11-09 08:27] LABS: Basophils Absolute Auto 0.1 X10*3/uL (0.0-0.2); Basophils Percent Auto 0.6 % (0-2); Eosinophils Absolute Auto 0.1 X10*3/uL (0.0-0.4); Eosinophils Percent Auto 0.4 % (0-4); Hematocrit 40.8 % (42-52); Hemoglobin 14.1 g/dl (14.0-18.0); Imm Gran Pct Auto 0.6 % (0.0-0.4); Lymphocytes Absolute Auto 3.5 X10*3/uL (1.2-4.9); Lymphocytes Percent Auto 19.6 % (20-40); MANUAL DIFF FLAG SCAN; Mean Corpuscular HGB Conc 34.6 g/dl (31.0-36.0); Mean Corpuscular Hemoglobin 32.9 pg (27.0-33.0); Mean Corpuscular Volume 95.3 fL (80-98); Mean Platelet Volume 11.3 fL (9.4-12.4); Monocytes Absolute Auto 1.5 X10*3/uL (0.1-1.2); Monocytes Percent Auto 8.4 % (2-11); Neutrophils Absolute Auto 12.7 X10*3/uL (2.0-8.3); Neutrophils Percent Auto 70.4 % (45-73); Platelet Count 198 X10*3/uL (160-400); Red Blood Count 4.28 X10*6/uL (4.60-5.80); Red Cell Distribution Width 12.7 % (11.0-16.0); SCAN SMEAR FLAG 1
[2020-11-09] MEDS: Piperacillin Sodium/Tazobactam 3.375 GM in 0.9 % Sodium Chloride 50 ML IV ×3 (08:35→20:29)
[2020-11-09 08:36] LABS: Lactic Acid 0.9 mmol/L (0.5-2.0)
[2020-11-09 08:41] LABS: COVID-19 Test Positive (Negative); IDNOW Serial# 9DD0AD1C
[2020-11-09 08:51] LABS: Alanine Aminotransferase 33 U/L (0-40); Alkaline Phosphatase 114 U/L (39-117); Anion Gap 14 (12-20); Aspartate Amino Transferase 26 U/L (5-37); Bilirubin Direct 0.5 mg/dL (0.0-0.5); Bilirubin Total 1.7 mg/dL (0.0-1.0); Blood Urea Nitrogen 13 mg/dL (9-16); Carbon Dioxide 25 mmol/L (22-29); Chloride 105 mmol/L (96-108); Creatinine Clr Calc Pharmacy 143.9; Estimated Glomerular Filt Rate > 60; Glucose Random 145 mg/dL (60-115); Magnesium 1.6 mg/dL (1.6-2.6); Potassium 4.1 mmol/L (3.3-5.1); Sodium 140 mmol/L (135-145); Total Protein 7.5 g/dL (6.5-8.0)
[2020-11-09 09:12] LABS: SLIDE REVIEW VERIFIED
[2020-11-09] MEDS: vancomycin HCL 1,000 MG in 0.9 % Sodium Chloride 250 ML 270 MG IV (09:37)
--- NOTE | 2020-11-09 11:20 | PM.IMHP ---
History of Present Illness Date of Service: 11/09/20 Attending physician on admission: Mike Bowers Chief Complaint: Left elbow pain and swelling 50-year-old gentleman with past medical history significant for diabetes mellitus, hyperlipidemia, history of myocardial infarction was seen at [facility] on 11/07 for left elbow pain and swelling and was diagnosed to have all agreed and bursitis and was sent home on NSAIDs and compression, however patient returned to [facility] due to worsening redness swelling and discomfort despite using NSAIDs patient also complained of chills but no fever he denies any elbow injury, no insect bite denies any open wounds, in the emergency room patient noted to have low-grade fever, tachycardia and elevated WBC count, a left upper extremity duplex study showed no evidence of DVT patient treated with IV antibiotic and now being admitted for continued monitoring and treatment. Review of Systems Review of Systems: General no headache, no dizziness, no fever,+ chills. CVS no chest pain, no palpitation. Respiratory no cough no sob. Gastrointestinal no nausea no vomiting, no abdominal pain Musculoskeletal no other joint pain or swelling other than left elbow Skin no rash Yes all other systems are reviewed and are negative COUNTS INCLUDE 234 BEDS AT THE [facility] Medical History Anxiety Arthritis Depression Diabetes High cholesterol High cholesterol History of myocardial infarction HTN (hypertension) Hyperlipidemia LDL goal <70 Normal echocardiogram Family History Mother Alzheimer disease HTN (hypertension) Father Old age Brother Diabetes mellitus Maternal Grandmother Diabetes mellitus Heart disease Pertinent family history: . Surgical History H/O cardiac catheterization History of appendectomy Hx of foot surgery Social History Household Members: Family Household Members Other:: Roommate Housing: House Do you presently have visiting nurse or other home services: No Alcohol intake: current Alcohol intake frequency: does not drink Patient Tobacco Use Status: Current everyday Tobacco user Tobacco use type: Cigarette Second Hand Smoke Exposure: Yes Use of substances other than those prescribed or required for medical reasons: No Substance Use Type: Crack/Cocaine and Other Advance Directives: No Advance Directives Information Provided: No service: No Recent Out of Country Travel Within the Last 8 Weeks: No Meds Allergies Allergy/AdvReac Type Severity Reaction Status Date / Time No Known Allergies Allergy Unverified 11/07/20 21:24 [No Known Allergies*] Active Medications: Current Medications Acetaminophen (Acetaminophen 325 Mg Tablet) 650 mg PO Q6H PRN PRN Reason: Pain, Mild (Pain Scale 1-3) Enoxaparin Sodium (Enoxaparin Sodium 40 Mg/0.4 Ml Syringe) 40 mg SUBCUT Q24H [facility] Ondansetron HCl (Ondansetron Hcl 4 Mg/2 Ml Vial) 4 mg IVPUSH Q8H PRN PRN Reason: Nausea and Vomiting Oxycodone HCl (Oxycodone Hcl Immed Release 5 Mg Tablet) 5 mg PO Q6H PRN PRN Reason: Pain, Severe (Pain Scale 7-10) Pharmacy Consult (Consult Rx Vancomycin Dosing) 1 each MISCELLANE DAILY PRN PRN Reason: Consult order Sodium Chloride (0.9 % Sodium Chloride Flush 3 Ml Syringe) 3 ml IVFLUSH [facility] Home Medications Medication Instructions Recorded Confirmed Last Taken Type aripiprazole 15 mg tablet 15 mg PO DAILY 07/20/20 11/08/20 Unknown History bupropion HCl 300 mg 24 hr tablet, 300 mg PO BEDTIME 07/20/20 11/08/20 Unknown History extended release gabapentin 400 mg capsule 400 mg PO TID 07/20/20 11/08/20 Unknown History lancets 33 gauge #100 ea 07/20/20 11/08/20 Unknown History metformin 1,000 mg tablet 1,000 mg PO BID 07/20/20 11/08/20 Unknown History omeprazole 20 mg capsule,delayed 20 mg PO DAILY 07/20/20 11/08/20 Unknown History release pen needle, diabetic 32 gauge x #50 ea 07/20/20 11/08/20 Unknown History prazosin 2 mg capsule 2 mg PO BEDTIME 07/20/20 11/08/20 Unknown History trazodone 100 mg tablet 100 mg PO BEDTIME 07/20/20 11/08/20 Unknown History venlafaxine 150 mg 150 mg PO DAILY 07/20/20 11/08/20 Unknown History capsule,extended release 24 hr cholecalciferol (vitamin D3) 50 50 mcg PO QAM 11/03/20 11/08/20 Unknown History mcg (2,000 unit) capsule Physical Exam Vital Signs and Narrative: Vital Signs: Last Vital Signs Temp 99.4 F 11/09/20 08:08 Pulse 95 11/09/20 08:08 Resp 18 11/09/20 08:08 BP 112/84 11/09/20 08:08 Pulse Ox 100 11/09/20 08:08 Body Mass Index 28.4 General resting comfortably in no acute distress. Neck supple no JVD. No murmur, regurg or gallop CVS regular rate rhythm, Respiratory lungs clear to auscultation, no respiratory distress, no wheeze, no rhonchi. Gastrointestinal abdomen soft, nontender, bowel sounds audible, no guarding , no rigidity. Extremities no edema. Left elbow significant swelling extending from the wrist to left arm, significant tenderness and swelling over left olecranon, dry scab, but no open wounds, multiple healed cut teran on left arm Neuro nonfocal,speech clear. Skin no rash Psych appropriate affect Results Labs CBC and Chem 7: 11/09/20 08:18 11/09/20 08:18 Labs: Laboratory Results - last 24 hr 11/09/20 11/09/20 11/09/20 08:14 08:18 08:18 MCV 95.3 MCH 32.9 MCHC 34.6 RDW 12.7 Plt Count 198 MPV 11.3 Immature Gran % (Auto) 0.6 H Neut % (Auto) 70.4 Lymph % (Auto) 19.6 L [place] % (Auto) 8.4 Eos % (Auto) 0.4 Baso % (Auto) 0.6 Lymph # (Auto) 3.5 [place] # (Auto) 1.5 H Eos # (Auto) 0.1 Baso # (Auto) 0.1 Abs Immat Gran (auto) 0.10 H Absolute Neuts (auto) 12.7 H Absolute Nucleated RBC 0.000 Nucleated RBC % (auto) 0.0 Smear Tech's Comments VERIFIED Anion Gap 14 Estim Creat Clear Calc 143.9 Estimated GFR > 60 Random Glucose 145 H Lactic Acid Calcium 9.0 D Magnesium 1.6 Total Bilirubin 1.7 H Direct Bilirubin 0.5 AST 26 ALT 33 Alkaline Phosphatase 114 Total Protein 7.5 Albumin 4.0 COVID-19 (DANIEL) Positive A COVID-19 Clin Com See Note 11/09/20 08:18 MCV MCH MCHC RDW Plt Count MPV Immature Gran % (Auto) Neut % (Auto) Lymph % (Auto) [place] % (Auto) Eos % (Auto) Baso % (Auto) Lymph # (Auto) [place] # (Auto) Eos # (Auto) Baso # (Auto) Abs Immat Gran (auto) Absolute Neuts (auto) Absolute Nucleated RBC Nucleated RBC % (auto) Smear Tech's Comments Anion Gap Estim Creat Clear Calc Estimated GFR Random Glucose Lactic Acid 0.9 Calcium Magnesium Total Bilirubin Direct Bilirubin AST ALT Alkaline Phosphatase Total Protein Albumin COVID-19 (DANIEL) COVID-19 Clin Com Imaging Radiologist's Impressions: Impressions Venous Duplex 11/09/20 08:02 IMPRESSION: No acute DVT demonstrated in the left upper extremity Assessment and Plan (1) Bursitis: Qualifiers: Bursitis location: elbow Elbow bursitis location: olecranon bursitis Laterality: left Qualified Code(s): M70.22 - Olecranon bursitis, left elbow Status: Acute (2) Cellulitis: Qualifiers: Laterality: left Site of cellulitis: extremity Site of cellulitis of extremity: upper extremity Qualified Code(s): L03.114 - Cellulitis of left upper limb Status: Acute (3) COVID-19: Status: Acute (4) Leukocytosis: Qualifiers: Leukocytosis type: unspecified Qualified Code(s): D72.829 - Elevated white blood cell count, unspecified Status: Acute (5) Essential hypertension: Status: Acute (6) Type 2 diabetes mellitus with unspecified complications: Status: Acute (7) History of myocardial infarction: Status: Acute (8) Depression: Status: Acute 50-year-old gentleman with past medical history of diabetes, hypertension, coronary artery disease status post [place] 5 years ago current active smoker presented to [facility] 0 11/15 and diagnosed to have folic current bursitis sent home on NSAIDs and compression therapy return back to ER due to worsening swelling pain and redness of anti left arm, and noted to have COVID-19 positive. Sepsis due to Left olecranon septic bursitis/cellulitis Patient denies any trauma, no open sores, noted to have tachycardia and leukocytosis , normal lactic acid, will treat patient with IV vancomycin and Zosyn, follow blood cultures x2, follow Vanco trough and CBC Doppler study left arm showed no DVT Apply ice as needed use analgesics for pain, no evidence of joint infection, has full range of motion left elbow limited by pain COVID-19 infection Patient asymptomatic, admitted to isolation unit use as needed cough medication, history of prior COVID infection. Tobacco use disorder Smokes 1 pack per day, counseling done,will place on nicotine patch, explain high risk for coronary artery disease stroke with continued smoking Diabetes mellitus blood sugars stable Will place on diabetic diet and add insulin sliding scale, takes insulin and metformin at home, will hold metformin follow point of care q.i.d.. Coronary artery disease No chest pain continue home medications, aspirin, Lipitor History of depression No acute decompensation continue home medication DVT prophylaxis Will place on Lovenox 40 subQ Code status patient wishes to be full code Quality Stroke Does the patient have a stroke diagnosis?: No VTE Prior VTE?: No VTE Risk Level:: Medical - moderate - high VTE Device Contraindication: Treatment Not Indicated VTE Drug Contraindication: N/A - Med Ordered
[2020-11-09] MEDS: Enoxaparin Sodium 40 MG/0.4 ML SYRINGE SUBCUT (11:41)
[2020-11-09] MEDS: 0.9 % Sodium Chloride Flush 3 ML SYRINGE IVFLUSH ×2 (11:42→14:49)
--- NOTE | 2020-11-09 11:56 | PHA.PROG ---
Admission Date/Time: Indication: Skin & Soft Tissue Weight in k.811 kg Adjusted body weight in K.72 kg [place] body weight in K kg Serum Creatinine - Last 168 Hours 11/09/20 08:18 Creatinine 0.70 Estimated CrCl and GFR - Last 168 Hours 11/09/20 08:18 Estim Creat Clear Calc 143.9 Estimated GFR > 60 Vancomycin Loading Dose: First dose 1000 mg @ 0937, second dose 1250 mg @ 1700 to make a loading dose Current Vancomycin Dosing Regimen: 1250 mg Q12H Date and Time for next Vancomycin Level to be drawn: 11/10 @ 1600 Pharmacist Comments on Vancomycin Plan: Start Vanco 1250 mg Q12H @ 1700 on 11/09. Expected AUC 463 with a trough 13.8. Vanco trough o 11/10 @ 1600 before 4th dose Will Monitor SCr daily Libia Liriano PharmD Vancomycin dosing will take advantage of [employer] as a clinical decision support tool that uses Bayesian modeling to calculate individual patient's pharmacokinetic parameters and forecast the patient's drug concentration time course with the target goal AUC 24 range of 400 - 600 mg/L/hr.
--- NOTE | 2020-11-09 13:45 | PC.NURSE ---
Report given to next nurse. Patient finishing lunch. A+ox4. VSS. Resting safely.
[2020-11-09] MEDS: oxyCODONE HCl Immed Release 5 MG TABLET PO ×2 (14:49→20:36)
[2020-11-09] MEDS: Nicotine 21 MG PATCH.TD24 TRANSDERMA (15:26)
--- NOTE | 2020-11-09 15:29 | PHA.MEDREC ---
Pharmacy Consult ? Medication Reconciliation Pharmacy has completed the medication reconciliation. There are no remarkable issue for provider attention. Verified medications with [facility]. Libia Liriano, PetrD
[2020-11-09 16:20] LABS: Glucose, Whole Blood 146 mg/dL (60-115)
[2020-11-09] MEDS: vancomycin HCL 1,250 MG in 0.9 % Sodium Chloride 250 ML 166.67 MG IV (17:30)
--- NOTE | 2020-11-09 18:34 | PC.NURSE ---
Patient up to iso unit from ED around 1400. Admission complete, sports broadcasting internship to bedside, patient oriented to room, instructed on how to utilize call abdul. Patient deemed low fall risk by assessment from this RN.
[2020-11-09 19:38] LABS: Glucose, Whole Blood 159 mg/dL (60-115)
[2020-11-09] MEDS: Insulin Lispro 100 UNIT/ML 3 ML VIAL SUBCUT (20:29)
[2020-11-10] MEDS: Piperacillin Sodium/Tazobactam 3.375 GM in 0.9 % Sodium Chloride 50 ML IV ×4 (03:00→20:53)
[2020-11-10 04:00] VITALS: BP 141/72; PULSE 84; RESP 18; TEMP 36.4; O2SAT 98
[2020-11-10] MEDS: vancomycin HCL 1,250 MG in 0.9 % Sodium Chloride 250 ML 166.67 MG IV (04:30)
[2020-11-10 06:18] LABS: MANUAL DIFF FLAG NO
[2020-11-10 06:25] LABS: Basophils Absolute Auto 0.1 X10*3/uL (0.0-0.2); Basophils Percent Auto 0.5 % (0-2); Eosinophils Absolute Auto 0.1 X10*3/uL (0.0-0.4); Eosinophils Percent Auto 0.8 % (0-4); Hematocrit 37.4 % (42-52); Hemoglobin 12.9 g/dl (14.0-18.0); Imm Gran Abs Auto 0.09 X10*3/uL (0.00-0.03); Imm Gran Pct Auto 0.5 % (0.0-0.4); Lymphocytes Absolute Auto 3.4 X10*3/uL (1.2-4.9); Lymphocytes Percent Auto 20.1 % (20-40); Mean Corpuscular HGB Conc 34.5 g/dl (31.0-36.0); Mean Corpuscular Hemoglobin 32.7 pg (27.0-33.0); Mean Corpuscular Volume 94.7 fL (80-98); Mean Platelet Volume 11.4 fL (9.4-12.4); Monocytes Absolute Auto 1.4 X10*3/uL (0.1-1.2); Monocytes Percent Auto 8.4 % (2-11); Neutrophils Absolute Auto 11.8 X10*3/uL (2.0-8.3); Neutrophils Percent Auto 69.7 % (45-73); Platelet Count 189 X10*3/uL (160-400); Red Blood Count 3.95 X10*6/uL (4.60-5.80); Red Cell Distribution Width 12.2 % (11.0-16.0)
[2020-11-10 07:11] LABS: Anion Gap 9 (12-20); Blood Urea Nitrogen 11 mg/dL (9-16); Calcium 8.5 mg/dL (8.4-10.2); Carbon Dioxide 26 mmol/L (22-29); Chloride 106 mmol/L (96-108); Estimated Glomerular Filt Rate > 60; Glucose Random 141 mg/dL (60-115); Potassium 3.2 mmol/L (3.3-5.1); Sodium 138 mmol/L (135-145)
[2020-11-10 07:46] VITALS: BP 156/80; PULSE 95; RESP 20; TEMP 36.3; O2SAT 98
[2020-11-10 08:06] LABS: Glucose, Whole Blood 127 mg/dL (60-115)
[2020-11-10] MEDS: Nicotine 21 MG PATCH.TD24 TRANSDERMA (08:33)
[2020-11-10] MEDS: 0.9 % Sodium Chloride Flush 3 ML SYRINGE IVFLUSH ×2 (08:33→20:55)
[2020-11-10] MEDS: oxyCODONE HCl Immed Release 5 MG TABLET PO ×2 (08:40→17:19)
--- NOTE | 2020-11-10 08:53 | MHC.CM.PN ---
Patient is Covid (+) and unreachable by cell @[phone] nor room extension @ [phone]; CM spoke with Son/Jr. Doc @ [phone] and addressed IMM with him, (original to be mailed certified letter to him and a copy placed on the chart).. Patient lives in a house with 2 Friends and he has a walker to assist with mobility. Patient had no services [employer]DER and home is the goal for dc. CM has initiated and will follow for dc planning.PCP is DR.Isabel Baird.
[2020-11-10 11:44] VITALS: BP 148/65; PULSE 97; RESP 20; TEMP 36.8; O2SAT 100
--- NOTE | 2020-11-10 12:05 | P.PNIM_ITS ---
Subjective Subjective Date of Service: 11/10/20 Interval History: Being followed for left olecranon bursitis, complaining of persistent left forearm and elbow pain and swelling, denies fever chills, no other acute issues overnight. Review of Systems General no headache, no dizziness, no fever chills. CVS no chest pain, no palpitation. Respiratory no cough, no sob. Gastrointestinal no nausea no vomiting, no abdominal pain Review of Systems: Yes all other systems are reviewed and are negative Physical Exam Vital Signs: Vital Signs: Last Vital Signs Temp 98.3 F 11/10/20 11:44 Pulse 97 11/10/20 11:44 Resp 20 11/10/20 11:44 BP 148/65 H 11/10/20 11:44 Pulse Ox 100 11/10/20 11:44 Body Mass Index 28.4 General resting c omfortably in no a cute distress.? Ne ck? supple no JVD. ? No murmur, regur g or gallop CVS? r egular rate rhythm , Respiratory lung s clear to auscult ation, no respirat ory distress, no w heeze, no rhonchi. Gastrointestinal abdomen soft, nont ann marie, bowel sound s audible, no guar ding , no rigidity . Extremities no e ashley. Left elbow s welling improving less swelling at w rist ,persistent t enderness and swel ling over left ole cranon, dry scab, but no open wounds , multiple healed cut teran on left arm Neuro nonfocal ,speech clear. Ski n no rash Psych ap propriate affect Objective Data Active Medications Acetaminophen (Acetaminophen 325 Mg Tablet) 650 mg PO Q6H PRN PRN Reason: Pain, Mild (Pain Scale 1-3) Dextrose (Dextrose 50 % 25 Gm/50 Ml Vial) 25 gm IVPUSH Q15M PRN; Protocol PRN Reason: per Hypoglycemia Standing Ord. Enoxaparin Sodium (Enoxaparin Sodium 40 Mg/0.4 Ml Syringe) 40 mg SUBCUT Q24H [facility] Last Admin: 11/09/20 11:41 Dose: 40 mg Documented by: DON Glucose (Glucose Gel 15 Gm Gel..Gram.) 15 gm PO Q15M PRN; Protocol PRN Reason: per Hypoglycemia Standing Ord. Piperacillin Sod/Tazobactam (Sod 3.375 gm/ Sodium Chloride) 50 mls @ 100 mls/hr IV Q6H [facility] Last Infusion: 11/10/20 09:46 Dose: 0 mls/hr Documented by: MEGHAN Vancomycin HCl 1,250 mg/ (Sodium Chloride) 250 mls @ 166.667 mls/hr IV Q12H [facility] Last Infusion: 11/10/20 06:27 Dose: 0 mls/hr Documented by: ELSA Insulin Human Lispro (Insulin Lispro 100 Unit/Ml 3 Ml Vial) 0 unit SUBCUT QIDACHS [facility]; Protocol Last Admin: 11/10/20 08:24 Dose: Not Given Documented by: MEGHAN Non-Admin Reason: No Insulin Coverage Nicotine (Nicotine 21 Mg Patch.Td24) 21 mg TRANSDERMA DAILY [facility] Last Admin: 11/10/20 08:33 Dose: 21 mg Documented by: MEGHAN Ondansetron HCl (Ondansetron Hcl 4 Mg/2 Ml Vial) 4 mg IVPUSH Q8H PRN PRN Reason: Nausea and Vomiting Oxycodone HCl (Oxycodone Hcl Immed Release 5 Mg Tablet) 5 mg PO Q6H PRN PRN Reason: Pain, Severe (Pain Scale 7-10) Last Admin: 11/10/20 08:40 Dose: 5 mg Documented by: MEGHAN Pharmacy Consult (Consult Rx Vancomycin Dosing) 1 each MISCELLANE DAILY PRN PRN Reason: Consult order Sodium Chloride (0.9 % Sodium Chloride Flush 3 Ml Syringe) 3 ml IVFLUSH QSHIFT [facility] Last Admin: 11/10/20 08:33 Dose: 3 ml Documented by: MEGHAN Labs CBC & Chem 7: 11/10/20 06:00 11/10/20 06:00 Labs: Laboratory Results - last 24 hr 11/09/20 11/09/20 11/10/20 16:16 19:33 06:00 MCV 94.7 MCH 32.7 MCHC 34.5 RDW 12.2 Plt Count 189 MPV 11.4 Immature Gran % (Auto) 0.5 H Neut % (Auto) 69.7 Lymph % (Auto) 20.1 [place] % (Auto) 8.4 Eos % (Auto) 0.8 Baso % (Auto) 0.5 Lymph # (Auto) 3.4 [place] # (Auto) 1.4 H Eos # (Auto) 0.1 Baso # (Auto) 0.1 Abs Immat Gran (auto) 0.09 H Absolute Neuts (auto) 11.8 H Absolute Nucleated RBC 0.000 Nucleated RBC % (auto) 0.0 Anion Gap Estim Creat Clear Calc Estimated GFR POC Glucose 146 H 159 H Random Glucose Calcium 11/10/20 11/10/20 06:00 07:45 MCV MCH MCHC RDW Plt Count MPV Immature Gran % (Auto) Neut % (Auto) Lymph % (Auto) [place] % (Auto) Eos % (Auto) Baso % (Auto) Lymph # (Auto) [place] # (Auto) Eos # (Auto) Baso # (Auto) Abs Immat Gran (auto) Absolute Neuts (auto) Absolute Nucleated RBC Nucleated RBC % (auto) Anion Gap 9 L Estim Creat Clear Calc 146.0 Estimated GFR > 60 POC Glucose 127 H Random Glucose 141 H Calcium 8.5 Microbiology Microbiology Results: Microbiology 11/09/20 08:32 Blood Culture - Preliminary Blood - Venous Prelim: GPC Gram Stain only 11/09/20 08:18 Blood Culture - Preliminary Blood - Venous Prelim: GPC Gram Stain only Assessment and Plan (1) Cellulitis: Status: Acute (2) Bursitis: Status: Acute (3) Leukocytosis: Status: Acute (4) Gram-positive cocci bacteremia: Status: Acute Assessment and Plan: 50-year-old gentleman with past medical history of diabetes, hypertension, coronary artery disease status post [place] 5 years ago current active smoker presented to [facility] 0 11/15 and diagnosed to have folic current bursitis sent home on NSAIDs and compression therapy return back to ER due to worsening swelling pain and redness of left arm, and noted to have COVID-19 positive. Sepsis due to Left olecranon septic bursitis/cellulitis/Gram-positive cocci bacteremia Patient denies any trauma, no open sores, tachycardia and leukocytosis improving, normal lactic acid Continue IV vancomycin and Zosyn day 2, blood cultures x2 positive for gram- positive cocci follow Vanco trough and CBC Doppler study left arm showed no DVT Continue analgesics for pain, no evidence of joint infection, has full range of motion left elbow limited by pain Will consult Infectious Disease COVID-19 infection Patient asymptomatic, admitted to isolation unit use as needed cough medication, history of prior COVID infection. Tobacco use disorder Smokes 1 pack per day, counseling done,cont. nicotine patch, explain high risk for coronary artery disease stroke with continued smoking Diabetes mellitus blood sugars stable stable BS,on diabetic diet and insulin sliding scale, takes insulin and metformin at home, will hold metformin follow point of care q.i.d.. Coronary artery disease No chest pain continue home medications, aspirin, Lipitor History of depression No acute decompensation continue home medication DVT prophylaxis Will place on Lovenox 40 subQ Code status patient wishes to be full code Quality Stroke Does the patient have a stroke diagnosis?: No VTE Prior VTE?: No VTE Risk Level:: Medical - moderate - high VTE Device Contraindication: Treatment Not Indicated VTE Drug Contraindication: N/A - Med Ordered
[2020-11-10 12:08] LABS: Glucose, Whole Blood 138 mg/dL (60-115)
[2020-11-10] MEDS: Enoxaparin Sodium 40 MG/0.4 ML SYRINGE SUBCUT (12:32)
[2020-11-10 15:10] VITALS: BP 139/69; PULSE 106; RESP 20; TEMP 36.3; O2SAT 100
[2020-11-10 15:57] LABS: Glucose, Whole Blood 125 mg/dL (60-115)
[2020-11-10 16:33] LABS: Vancomycin Trough 6.3 mcg/mL (10.0-20.0)
[2020-11-10] MEDS: vancomycin HCL 1,500 MG in 0.9 % Sodium Chloride 500 ML 333.33 MG IV (17:20)
[2020-11-10 19:12] VITALS: BP 127/71; PULSE 99; RESP 20; TEMP 37.2; O2SAT 98
[2020-11-10 20:06] LABS: Glucose, Whole Blood 171 mg/dL (60-115)
[2020-11-10] MEDS: Insulin Lispro 100 UNIT/ML 3 ML VIAL SUBCUT (20:54)
[2020-11-10] MEDS: Atorvastatin Calcium 80 MG TABLET PO (20:55)
[2020-11-10] MEDS: hydrOXYzine HCL 25 MG TABLET PO (20:55)
[2020-11-10] MEDS: Gabapentin 600 MG TABLET PO (20:55)
[2020-11-10] MEDS: traZODone HCL 100 MG TABLET PO (20:55)
[2020-11-10] MEDS: Prazosin HCL 1 MG CAPSULE 2 MG PO (20:55)
[2020-11-10] MEDS: Acetaminophen 325 MG TABLET 650 MG PO (22:26)
[2020-11-10 23:45] VITALS: BP 109/55; PULSE 86; RESP 19; TEMP 36.9; O2SAT 91
[2020-11-11] VITALS (8 sets, daily range): BP systolic 97–128; BP diastolic 54–71; PULSE 75–86; RESP 18–20; TEMP 35.8–36.9; O2SAT 95–98
[2020-11-11] MEDS: Piperacillin Sodium/Tazobactam 3.375 GM in 0.9 % Sodium Chloride 50 ML IV ×2 (03:11→09:07)
[2020-11-11] MEDS: vancomycin HCL 1,500 MG in 0.9 % Sodium Chloride 500 ML 333.33 MG IV (04:52)
[2020-11-11] MEDS: Omeprazole 20 MG CAPSULE.DR PO (06:13)
[2020-11-11 06:36] LABS: MANUAL DIFF FLAG NO
[2020-11-11 06:46] LABS: Basophils Absolute Auto 0.1 X10*3/uL (0.0-0.2); Basophils Percent Auto 0.7 % (0-2); Eosinophils Absolute Auto 0.3 X10*3/uL (0.0-0.4); Eosinophils Percent Auto 1.8 % (0-4); Hematocrit 36.3 % (42-52); Hemoglobin 12.8 g/dl (14.0-18.0); Imm Gran Abs Auto 0.06 X10*3/uL (0.00-0.03); Imm Gran Pct Auto 0.4 % (0.0-0.4); Lymphocytes Percent Auto 26.5 % (20-40); Mean Corpuscular HGB Conc 35.3 g/dl (31.0-36.0); Mean Corpuscular Volume 93.6 fL (80-98); Mean Platelet Volume 11.4 fL (9.4-12.4); Monocytes Absolute Auto 1.4 X10*3/uL (0.1-1.2); Monocytes Percent Auto 9.3 % (2-11); Neutrophils Absolute Auto 9.1 X10*3/uL (2.0-8.3); Neutrophils Percent Auto 61.3 % (45-73); Platelet Count 210 X10*3/uL (160-400); Red Blood Count 3.88 X10*6/uL (4.60-5.80); Red Cell Distribution Width 12.4 % (11.0-16.0); White Blood Count 14.9 X10*3/uL (4.8-10.8)
[2020-11-11 06:57] LABS: Anion Gap 11 (12-20); Blood Urea Nitrogen 13 mg/dL (9-16); Calcium 8.5 mg/dL (8.4-10.2); Carbon Dioxide 25 mmol/L (22-29); Chloride 105 mmol/L (96-108); Creatinine Clr Calc Pharmacy 85.3; Estimated Glomerular Filt Rate > 60; Glucose Random 160 mg/dL (60-115); Potassium 3.3 mmol/L (3.3-5.1); Sodium 138 mmol/L (135-145)
[2020-11-11 07:20] LABS: Glucose, Whole Blood 129 mg/dL (60-115)
--- NOTE | 2020-11-11 07:54 | HE.PHANOTE ---
Pharmacy Note- Vancomycin Dosing Addendum Due to a decrease in renal function with Scr increasing from 0.69 to 1.18. The vancomycin regimen was changed to 1000 mg q12h with a predicted AUC of 417 with a trough of 12.0. Petr VillatoroD [phone]
[2020-11-11] MEDS: Cholecalciferol (Vitamin D3) 25 MCG TABLET 50 MCG PO (09:07)
[2020-11-11] MEDS: ARIPiprazole 15 MG TABLET PO (09:07)
[2020-11-11] MEDS: Venlafaxine HCl ER 75 MG CAP.ER.24H PO (09:07)
[2020-11-11] MEDS: Gabapentin 600 MG TABLET PO ×3 (09:07→20:34)
[2020-11-11] MEDS: Aspirin Enteric Coated 81 MG TABLET.DR PO (09:07)
[2020-11-11] MEDS: buPROPion HCl XL 300 MG TAB.ER.24H PO (09:07)
[2020-11-11] MEDS: 0.9 % Sodium Chloride Flush 3 ML SYRINGE IVFLUSH ×3 (09:08→20:34)
[2020-11-11] MEDS: Nicotine 21 MG PATCH.TD24 TRANSDERMA (09:08)
[2020-11-11] MEDS: Venlafaxine HCl ER 150 MG CAP.ER.24H PO (09:08)
[2020-11-11 11:15] LABS: Glucose, Whole Blood 189 mg/dL (60-115)
[2020-11-11] MEDS: Insulin Lispro 100 UNIT/ML 3 ML VIAL SUBCUT (11:24)
[2020-11-11] MEDS: Enoxaparin Sodium 40 MG/0.4 ML SYRINGE SUBCUT (11:24)
[2020-11-11] MEDS: oxyCODONE HCl Immed Release 5 MG TABLET PO ×2 (11:25→21:03)
--- NOTE | 2020-11-11 12:07 | MHC.CM.PN ---
Per ROUNDS discussion, Patient is not yet medically cleared for dc (IV Zosyn, IV Vanco). Home is the goal for dc and CM will follow for possible need to adjust the dc plan.
--- NOTE | 2020-11-11 12:53 | W.PM.IDCN ---
History of Present Illness Data of Consult Service Date: 11/11/20 Requesting physician: Mike Bowers Primary Care Provider: Cheri PANDA Reason for consult: bacteremia,left olecranon bursitis He presents with left elbow swelling and pain He has symptoms for two days He has staph aureus bacteremia He has had incidental COVID found He is not on oxygen Review of Systems Review of Systems: Yes all other systems are reviewed and are negative PMFSH Past Medical History Medical History Anxiety Arthritis Depression Diabetes High cholesterol High cholesterol History of myocardial infarction HTN (hypertension) Hyperlipidemia LDL goal <70 Normal echocardiogram Family History Family History Mother Alzheimer disease HTN (hypertension) Father Old age Brother Diabetes mellitus Maternal Grandmother Diabetes mellitus Heart disease Family history: reviewed and not pertinent Surgical History Surgical History H/O cardiac catheterization History of appendectomy Hx of foot surgery Social History Social History Household Members: Friend(s) Household Members Other:: Roommate Housing: House Do you presently have visiting nurse or other home services: No Alcohol intake: current Alcohol intake frequency: does not drink Patient Tobacco Use Status: Current everyday Tobacco user Tobacco use type: Cigarette Smoked in Last 30 Days: Yes Patient Interested in Nicotine Replacement: Yes Patient Given Instructions on How to Stop Smoking: No Second Hand Smoke Exposure: No Use of substances other than those prescribed or required for medical reasons: No Substance Use Type: Crack/Cocaine and Other Currently Displaying Signs/Symptoms of Drug Intoxication Withdrawal: No Have you been hit, kicked, punched, or otherwise hurt by someone within the past year? If so, by whom?: No Do you feel safe in your current relationship?: No Current Relationship Is there a partner from a previous relationship who is making you feel unsafe now?: No Are you made to feel afraid or neglected: No Advance Directives: No Advance Directives Information Provided: No Advance Directives on File: No Do you have thoughts of harming others: None Do you have a plan to hurt others: No Plan Recently lost weight without trying: No Nutrition Risks: No Nutritional Risk Poor oral hygiene: No service: No Current occupational status: disabled Meds Allergies Allergy/AdvReac Type Severity Reaction Status Date / Time No Known Allergies Allergy Unverified 11/07/20 21:24 [No Known Allergies*] Active Medications: Current Medications Acetaminophen (Acetaminophen 325 Mg Tablet) 650 mg PO Q6H PRN PRN Reason: Pain, Mild (Pain Scale 1-3) Last Admin: 11/10/20 22:26 Dose: 650 mg Documented by: Aripiprazole (Aripiprazole 15 Mg Tablet) 15 mg PO DAILY [facility] Last Admin: 11/11/20 09:07 Dose: 15 mg Documented by: Aspirin (Aspirin Enteric Coated 81 Mg Tablet.Dr) 81 mg PO DAILY [facility] Last Admin: 11/11/20 09:07 Dose: 81 mg Documented by: Atorvastatin Calcium (Atorvastatin Calcium 80 Mg Tablet) 80 mg PO BEDTIME [facility] Last Admin: 11/10/20 20:55 Dose: 80 mg Documented by: Bupropion HCl (Bupropion Hcl Xl 300 Mg Tab.Er.24h) 300 mg PO DAILY [facility] Last Admin: 11/11/20 09:07 Dose: 300 mg Documented by: Dextrose (Dextrose 50 % 25 Gm/50 Ml Vial) 25 gm IVPUSH Q15M PRN; Protocol PRN Reason: per Hypoglycemia Standing Ord. Enoxaparin Sodium (Enoxaparin Sodium 40 Mg/0.4 Ml Syringe) 40 mg SUBCUT Q24H [facility] Last Admin: 11/11/20 11:24 Dose: 40 mg Documented by: Gabapentin (Gabapentin 600 Mg Tablet) 600 mg PO TID [facility] Last Admin: 11/11/20 09:07 Dose: 600 mg Documented by: Glucose (Glucose Gel 15 Gm Gel..Gram.) 15 gm PO Q15M PRN; Protocol PRN Reason: per Hypoglycemia Standing Ord. Hydroxyzine HCl (Hydroxyzine Hcl 25 Mg Tablet) 25 mg PO BEDTIME [facility] Last Admin: 11/10/20 20:55 Dose: 25 mg Documented by: Vancomycin HCl 1,000 mg/ (Sodium Chloride) 270 mls @ 270 mls/hr IV Q12H [facility] Insulin Human Lispro (Insulin Lispro 100 Unit/Ml 3 Ml Vial) 0 unit SUBCUT QIDACHS [facility]; Protocol Last Admin: 11/11/20 11:24 Dose: 2 unit Documented by: Nicotine (Nicotine 21 Mg Patch.Td24) 21 mg TRANSDERMA DAILY [facility] Last Admin: 11/11/20 09:08 Dose: 21 mg Documented by: Omeprazole (Omeprazole 20 Mg Capsule.) 20 mg PO DAILY@0630 [facility] Last Admin: 11/11/20 06:13 Dose: 20 mg Documented by: Ondansetron HCl (Ondansetron Hcl 4 Mg/2 Ml Vial) 4 mg IVPUSH Q8H PRN PRN Reason: Nausea and Vomiting Oxycodone HCl (Oxycodone Hcl Immed Release 5 Mg Tablet) 5 mg PO Q6H PRN PRN Reason: Pain, Severe (Pain Scale 7-10) Last Admin: 11/11/20 11:25 Dose: 5 mg Documented by: Pharmacy Consult (Consult Rx Vancomycin Dosing) 1 each MISCELLANE DAILY PRN PRN Reason: Consult order Prazosin HCl (Prazosin Hcl 1 Mg Capsule) 2 mg PO BEDTIME [facility]; Protocol Last Admin: 11/10/20 20:55 Dose: 2 mg Documented by: Sodium Chloride (0.9 % Sodium Chloride Flush 3 Ml Syringe) [facility] Last Admin: 11/11/20 09:08 Dose: 3 ml Documented by: Trazodone HCl (Trazodone Hcl 100 Mg Tablet) 100 mg PO BEDTIME [facility] Last Admin: 11/10/20 20:55 Dose: 100 mg Documented by: Venlafaxine HCl (Venlafaxine Hcl Er 75 Mg Cap.Er.24h) 75 mg PO DAILY [facility] Last Admin: 11/11/20 09:07 Dose: 75 mg Documented by: Venlafaxine HCl (Venlafaxine Hcl Er 150 Mg Cap.Er.24h) 150 mg PO DAILY [facility] Last Admin: 11/11/20 09:08 Dose: 150 mg Documented by: Vitamin D (Cholecalciferol (Vitamin D3) 25 Mcg Tablet) 50 mcg PO DAILY [facility] Last Admin: 11/11/20 09:07 Dose: 50 mcg Documented by: Home Medications Medication Instructions Recorded Confirmed Last Taken Type aripiprazole 15 mg tablet 15 mg PO DAILY 07/20/20 11/09/20 Unknown History bupropion HCl 300 mg 24 hr tablet, 300 mg PO DAILY 07/20/20 11/09/20 Unknown History extended release lancets 33 gauge #100 ea 07/20/20 11/08/20 Unknown History omeprazole 20 mg capsule,delayed 20 mg PO DAILY 07/20/20 11/09/20 Unknown History release pen needle, diabetic 32 gauge x #50 ea 07/20/20 11/08/20 Unknown History trazodone 100 mg tablet 100 mg PO BEDTIME 07/20/20 11/09/20 Unknown History venlafaxine 150 mg 150 mg PO DAILY 07/20/20 11/09/20 Unknown History capsule,extended release 24 hr cholecalciferol (vitamin D3) 50 50 mcg PO QAM 11/03/20 11/09/20 Unknown History mcg (2,000 unit) capsule gabapentin 600 mg tablet 1 tab PO TID 11/09/20 11/09/20 Unknown History hydroxyzine pamoate 25 mg capsule 1 cap PO BEDTIME 11/09/20 11/09/20 Unknown History lisinopril 10 mg tablet 1 tab PO QAM 11/09/20 11/09/20 Unknown History metformin 500 mg tablet,extended 2 tab PO BID 11/09/20 11/09/20 Unknown History release 24 hr nitroglycerin 0.3 mg sublingual 1 tab SUBLINGUAL USEASDIRECTD 11/09/20 11/09/20 Unknown History tablet prazosin 2 mg capsule 1 cap PO BEDTIME 11/09/20 11/09/20 Unknown History venlafaxine 75 mg capsule,extended 75 mg PO DAILY 11/09/20 11/09/20 Unknown History release 24 hr Physical Exam Vital Signs: Vital Signs: Last Vital Signs Temp 98.4 F 11/11/20 11:24 Pulse 86 11/11/20 11:24 Resp 20 11/11/20 11:24 BP 98/54 L 11/11/20 11:24 Pulse Ox 96 11/11/20 11:24 Body Mass Index 28.4 Const: General: cooperative HENMT: Head: Yes normal to inspection Eyes: General: appearance normal, both eyes and all related structures Resp: Effort & Inspection: normal respiratory effort Cardio: Rate: regular rate Rhythm: regular rhythm GI: Palpation (GI): nontender Skin: General skin exam: no rashes or lesions noted Extrem: Other: left elbow swollen and red Results Labs CBC & Chem 7: 11/11/20 06:20 11/11/20 06:20 Labs: Short CBC 11/11/20 Range/Units 06:20 WBC 14.9 H (4.8-10.8) X10*3/uL Hgb 12.8 L (14.0-18.0) g/dl Hct 36.3 L (42-52) % Plt Count 210 (160-400) X10*3/uL BMP 11/11/20 06:20 Sodium 138 Potassium 3.3 Chloride 105 Carbon Dioxide 25 BUN 13 Creatinine 1.18 Calcium 8.5 Microbiology Microbiology Results: Microbiology 11/09/20 08:18 Blood - Venous Blood Culture - Preliminary Staphylococcus aureus 11/09/20 08:32 Blood - Venous Blood Culture - Preliminary Staphylococcus aureus Assessment and Plan (1) Gram-positive cocci bacteremia: Status: Acute Staph aureus bacteremia He has had infection from olecranon source likely Suggest Would continue Vancomycin and adjust to another antibiotic like Kefzol if MSSA Would have Orthopedics drain olecranon bursa due to bacteremia and large extent of swelling Check echo (2) COVID-19: Status: Acute Would not treat asymptomatic COVID of unknown duration (3) Cellulitis: Qualifiers: Laterality: left Site of cellulitis: extremity Site of cellulitis of extremity: upper extremity Qualified Code(s): L03.114 - Cellulitis of left upper limb Status: Acute (4) Bursitis: Qualifiers: Bursitis location: elbow Elbow bursitis location: olecranon bursitis Laterality: left Qualified Code(s): M70.22 - Olecranon bursitis, left elbow Status: Acute (5) Leukocytosis: Qualifiers: Leukocytosis type: unspecified Qualified Code(s): D72.829 - Elevated white blood cell count, unspecified Status: Acute
--- NOTE | 2020-11-11 15:15 | HO.PM.IMPN ---
Subjective Subjective Date of Service: 11/11/20 Interval History: Patient being followed for bacteremia and left olecranon bursitis, complaining of persistent pain although admits redness and swelling significantly improved. Review of Systems General no headache, no dizziness, no fever chills.? CVS no chest pain, no palpitation.? Respiratory no cough, no sob.? Gastrointestinal no nausea no vomiting, no abdominal pain Review of Systems: Yes all other systems are reviewed and are negative Physical Exam Vital Signs: Vital Signs: Last Vital Signs Temp 96.9 F 11/11/20 15:14 Pulse 82 11/11/20 15:14 Resp 20 11/11/20 15:14 BP 117/62 11/11/20 15:14 Pulse Ox 95 11/11/20 15:14 Body Mass Index 28.4 General resting comfortably in no acute distress.? Neck? supple no JVD. CVS? regular rate rhythm, Respiratory lungs clear to auscultation, no respiratory distress, no wheeze, no rhonchi. Gastrointestinalabdomen soft, nontender, bowel sounds audible, no guarding , no rigidity. Extremities no edema. Left elbow significant improvement in redness and swelling,persistent tenderness and swelling over left olecranon, dry scab, no pus point, no open wounds, multiple healed cut teran on leftarm Neuro nonfocal,speech clear. Skin no rash Psych appropriate affect ? Objective Data Active Medications Acetaminophen (Acetaminophen 325 Mg Tablet) 650 mg PO Q6H PRN PRN Reason: Pain, Mild (Pain Scale 1-3) Last Admin: 11/10/20 22:26 Dose: 650 mg Documented by: ELSA Aripiprazole (Aripiprazole 15 Mg Tablet) 15 mg PO DAILY [facility] Last Admin: 11/11/20 09:07 Dose: 15 mg Documented by: JOSE Aspirin (Aspirin Enteric Coated 81 Mg Tablet.) 81 mg PO DAILY [facility] Last Admin: 11/11/20 09:07 Dose: 81 mg Documented by: JOSE Atorvastatin Calcium (Atorvastatin Calcium 80 Mg Tablet) 80 mg PO BEDTIME [facility] Last Admin: 11/10/20 20:55 Dose: 80 mg Documented by: ELSA Bupropion HCl (Bupropion Hcl Xl 300 Mg Tab.Er.24h) 300 mg PO DAILY [facility] Last Admin: 11/11/20 09:07 Dose: 300 mg Documented by: JOSE Dextrose (Dextrose 50 % 25 Gm/50 Ml Vial) 25 gm IVPUSH Q15M PRN; Protocol PRN Reason: per Hypoglycemia Standing Ord. Enoxaparin Sodium (Enoxaparin Sodium 40 Mg/0.4 Ml Syringe) 40 mg SUBCUT Q24H [facility] Last Admin: 11/11/20 11:24 Dose: 40 mg Documented by: JOSE Gabapentin (Gabapentin 600 Mg Tablet) 600 mg PO TID [facility] Last Admin: 11/11/20 09:07 Dose: 600 mg Documented by: JOSE Glucose (Glucose Gel 15 Gm Gel..Gram.) 15 gm PO Q15M PRN; Protocol PRN Reason: per Hypoglycemia Standing Ord. Hydroxyzine HCl (Hydroxyzine Hcl 25 Mg Tablet) 25 mg PO BEDTIME [facility] Last Admin: 11/10/20 20:55 Dose: 25 mg Documented by: ELSA Vancomycin HCl 1,000 mg/ (Sodium Chloride) 270 mls @ 270 mls/hr IV Q12H [facility] Insulin Human Lispro (Insulin Lispro 100 Unit/Ml 3 Ml Vial) 0 unit SUBCUT QIDACHS [facility]; Protocol Last Admin: 11/11/20 11:24 Dose: 2 unit Documented by: JOSE Nicotine (Nicotine 21 Mg Patch.Td24) 21 mg TRANSDERMA DAILY [facility] Last Admin: 11/11/20 09:08 Dose: 21 mg Documented by: JOSE Omeprazole (Omeprazole 20 Mg Capsule.) 20 mg PO DAILY@0630 [facility] Last Admin: 11/11/20 06:13 Dose: 20 mg Documented by: ELSA Ondansetron HCl (Ondansetron Hcl 4 Mg/2 Ml Vial) 4 mg IVPUSH Q8H PRN PRN Reason: Nausea and Vomiting Oxycodone HCl (Oxycodone Hcl Immed Release 5 Mg Tablet) 5 mg PO Q6H PRN PRN Reason: Pain, Severe (Pain Scale 7-10) Last Admin: 11/11/20 11:25 Dose: 5 mg Documented by: JOSE Pharmacy Consult (Consult Rx Vancomycin Dosing) 1 each MISCELLANE DAILY PRN PRN Reason: Consult order Prazosin HCl (Prazosin Hcl 1 Mg Capsule) 2 mg PO BEDTIME [facility]; Protocol Last Admin: 11/10/20 20:55 Dose: 2 mg Documented by: ELSA Sodium Chloride (0.9 % Sodium Chloride Flush 3 Ml Syringe) 3 ml IVFLUSH QSHIFT [facility] Last Admin: 11/11/20 09:08 Dose: 3 ml Documented by: JOSE Trazodone HCl (Trazodone Hcl 100 Mg Tablet) 100 mg PO BEDTIME [facility] Last Admin: 11/10/20 20:55 Dose: 100 mg Documented by: ELSA Venlafaxine HCl (Venlafaxine Hcl Er 75 Mg Cap.Er.24h) 75 mg PO DAILY [facility] Last Admin: 11/11/20 09:07 Dose: 75 mg Documented by: JOSE Venlafaxine HCl (Venlafaxine Hcl Er 150 Mg Cap.Er.24h) 150 mg PO DAILY [facility] Last Admin: 11/11/20 09:08 Dose: 150 mg Documented by: JOSE Vitamin D (Cholecalciferol (Vitamin D3) 25 Mcg Tablet) 50 mcg PO DAILY [facility] Last Admin: 11/11/20 09:07 Dose: 50 mcg Documented by: JOSE Labs CBC & Chem 7: 11/11/20 06:20 11/11/20 06:20 Labs: Laboratory Results - last 24 hr 11/10/20 11/10/20 11/10/20 15:52 16:00 20:02 MCV MCH MCHC RDW Plt Count MPV Immature Gran % (Auto) Neut % (Auto) Lymph % (Auto) [place] % (Auto) Eos % (Auto) Baso % (Auto) Lymph # (Auto) [place] # (Auto) Eos # (Auto) Baso # (Auto) Abs Immat Gran (auto) Absolute Neuts (auto) Absolute Nucleated RBC Nucleated RBC % (auto) Anion Gap Estim Creat Clear Calc Estimated GFR POC Glucose 125 H 171 H Random Glucose Calcium Vancomycin Trough 6.3 L 11/11/20 11/11/20 11/11/20 06:20 06:20 07:16 MCV 93.6 MCH 33.0 MCHC 35.3 RDW 12.4 Plt Count 210 MPV 11.4 Immature Gran % (Auto) 0.4 Neut % (Auto) 61.3 Lymph % (Auto) 26.5 [place] % (Auto) 9.3 Eos % (Auto) 1.8 Baso % (Auto) 0.7 Lymph # (Auto) 4.0 [place] # (Auto) 1.4 H Eos # (Auto) 0.3 Baso # (Auto) 0.1 Abs Immat Gran (auto) 0.06 H Absolute Neuts (auto) 9.1 H Absolute Nucleated RBC 0.000 Nucleated RBC % (auto) 0.0 Anion Gap 11 L Estim Creat Clear Calc 85.3 Estimated GFR > 60 POC Glucose 129 H Random Glucose 160 H Calcium 8.5 Vancomycin Trough 11/11/20 11:11 MCV MCH MCHC RDW Plt Count MPV Immature Gran % (Auto) Neut % (Auto) Lymph % (Auto) [place] % (Auto) Eos % (Auto) Baso % (Auto) Lymph # (Auto) [place] # (Auto) Eos # (Auto) Baso # (Auto) Abs Immat Gran (auto) Absolute Neuts (auto) Absolute Nucleated RBC Nucleated RBC % (auto) Anion Gap Estim Creat Clear Calc Estimated GFR POC Glucose 189 H Random Glucose Calcium Vancomycin Trough Microbiology Microbiology Results: Microbiology 11/09/20 08:18 Blood Culture - Preliminary Blood - Venous Staphylococcus aureus 11/09/20 08:32 Blood Culture - Preliminary Blood - Venous Staphylococcus aureus Assessment and Plan (1) Gram-positive cocci bacteremia: Status: Acute (2) COVID-19: Status: Acute (3) Cellulitis: Status: Acute (4) Bursitis: Status: Acute (5) Leukocytosis: Status: Acute (6) Essential hypertension: Status: Acute (7) Type 2 diabetes mellitus with unspecified complications: Status: Acute Assessment and Plan: 50-year-old gentleman with past medical history of diabetes, hypertension, coronary artery disease status post [place] 5 years ago current active smoker presented to [facility] 0 11/15 and diagnosed to have folic current bursitis sent home on NSAIDs and compression therapy return back to ER due to worsening swelling pain and redness of left arm, and noted to have COVID-19 positive. Sepsis due to Left olecranon septic bursitis/cellulitis/Gram-positive cocci bacteremia Patient denies any trauma, no open sores, tachycardia resolved, persistent leukocytosis but slowly trending down, normal lactic acid Case discussed with ID she recommend to DC IV Zosyn and continue IV vancomycin day 3, blood cultures x2 positive for Staph aureus , she recommend echo and drainage Vanco trough 6.3 will adjust, follow CBC and trough Doppler study left arm showed no DVT Continue analgesics for pain, no evidence of joint infection, has full range of motion left elbow limited by pain Continue oxycodone for pain control, Await Ortho input COVID-19 infection Patient asymptomatic, admitted to isolation unit, as needed cough medication, history of prior COVID infection. Tobacco use disorder Smokes 1 pack per day, counseling done,cont. nicotine patch, explain high risk for coronary artery disease stroke with continued smoking Diabetes mellitus blood sugars stable stable BS,on diabetic diet and insulin sliding scale, takes insulin and metformin at home, will hold metformin follow point of care q.i.d.. Coronary artery disease No chest pain continue home medications, aspirin, Lipitor History of depression No acute decompensation continue home medication DVT prophylaxis on Lovenox 40 subQ Code status patient wishes to be full code Quality Stroke Does the patient have a stroke diagnosis?: No VTE Prior VTE?: No VTE Risk Level:: Medical - moderate - high VTE Device Contraindication: Treatment Not Indicated VTE Drug Contraindication: N/A - Med Ordered
--- NOTE | 2020-11-11 16:00 | CA_ITS ---
Transthoracic Echocardiogram Limited Patient (Last, First, Middle): Doc Greene, Gender: Male Date of : 1970 Age: 50 Procedure Date: 11/11/2020 Procedure Type: Transthoracic Echocardiogram Limited Location: [facility] [place] Height: 177.8 cm Weight: 89.81 kg BSA: 2.08 m2 Heart Rate: bpm BP: 124 / 70 mmHg Steward/Stewardess Third Class: Referring MD: Mike Bowers MD Symptoms: Bacteremia Study Quality: Good ECG Rhythm: Sinus Conclusions: - Study limited for valvular vegetations. No definitive evidence of endocarditis on this study. Findings Left Ventricle Normal left ventricular cavity size. The left ventricular systolic function is normal. The visually estimated ejection fraction is between 55-60%. Diastolic function is normal for age. Aortic Valve There is a normal trileaflet aortic valve. There is no aortic valve stenosis. There is no aortic valve regurgitation. Mitral Valve The mitral valve appears normal. There is trace mitral valve regurgitation. There is no mitral valve stenosis. Pulmonic Valve The pulmonic valve was not well visualized. Tricuspid Valve Normal tricuspid valve structure. There is trace tricuspid valve regurgitation. The pulmonary artery systolic pressure is normal. Prior Study Comparison No significant change compared to prior study dated: 09/27/2020. Measurements 2D Linear Measurements IVSd: 1.29 0.6-0.9/0.6-1.0 cm LVIDd: 4.68 3.9-5.3/4.2-5.9 cm LVIDd Index: 2.25 2.4-3.2/2.2-3.1 cm/m2 LVIDs: 3.09 2.0-3.6 cm LVPWd: 1.24 0.7-1.1 cm LV Mass: 283.19 67-162/88-224 g LV Mass Index: 136.15 43-95/49-115 g/m2 Tricuspid Valve TR Pk Ronni: 1.35 TR Pk Grad: 7.00 Updated in Other Vendor System with Status of Final Ed Hines MD electronically signed on 11/14/2020 11:35:28 AM with status of Final
[2020-11-11 16:06] LABS: Glucose, Whole Blood 122 mg/dL (60-115)
[2020-11-11] MEDS: vancomycin HCL 1,000 MG in 0.9 % Sodium Chloride 250 ML 270 MG IV (17:07)
[2020-11-11 19:55] LABS: Glucose, Whole Blood 132 mg/dL (60-115)
--- NOTE | 2020-11-11 19:59 | PM.EVENT ---
Event Note Date of Service: 11/11/20 Event Note: Left elbow olecranon bursitis patient has small amount of swelling and fluctulance over the olecranon bursa aspirated a small amount of pus from the bursa and then was able to express more out. applied compression dressing and sent to lab for culture/braeden stain results may not be accurate due to current abx no need for surgical intervention patient was able to actively range his elbow without pain. Not septic joint.
[2020-11-11] MEDS: Atorvastatin Calcium 80 MG TABLET PO (20:34)
[2020-11-11] MEDS: hydrOXYzine HCL 25 MG TABLET PO (20:34)
[2020-11-11] MEDS: Prazosin HCL 1 MG CAPSULE 2 MG PO (20:34)
[2020-11-11] MEDS: traZODone HCL 100 MG TABLET PO (20:34)
[2020-11-12 03:55] VITALS: BP 114/61; PULSE 73; RESP 16; TEMP 36.1; O2SAT 96
[2020-11-12 04:16] LABS: MANUAL DIFF FLAG NO
[2020-11-12 04:19] LABS: Basophils Absolute Auto 0.1 X10*3/uL (0.0-0.2); Basophils Percent Auto 0.7 % (0-2); Eosinophils Absolute Auto 0.2 X10*3/uL (0.0-0.4); Eosinophils Percent Auto 1.2 % (0-4); Hematocrit 36.4 % (42-52); Hemoglobin 12.6 g/dl (14.0-18.0); Imm Gran Abs Auto 0.05 X10*3/uL (0.00-0.03); Imm Gran Pct Auto 0.4 % (0.0-0.4); Lymphocytes Absolute Auto 3.2 X10*3/uL (1.2-4.9); Lymphocytes Percent Auto 25.7 % (20-40); Mean Corpuscular HGB Conc 34.6 g/dl (31.0-36.0); Mean Corpuscular Volume 95.3 fL (80-98); Mean Platelet Volume 10.7 fL (9.4-12.4); Monocytes Percent Auto 8.2 % (2-11); Neutrophils Absolute Auto 7.9 X10*3/uL (2.0-8.3); Neutrophils Percent Auto 63.8 % (45-73); Platelet Count 225 X10*3/uL (160-400); Red Blood Count 3.82 X10*6/uL (4.60-5.80); Red Cell Distribution Width 12.5 % (11.0-16.0); White Blood Count 12.4 X10*3/uL (4.8-10.8)
[2020-11-12 04:51] LABS: Creatinine Clr Calc Pharmacy 87.6; Estimated Glomerular Filt Rate > 60
[2020-11-12 04:58] LABS: Vancomycin Trough 13.1 mcg/mL (10.0-20.0)
[2020-11-12] MEDS: vancomycin HCL 1,000 MG in 0.9 % Sodium Chloride 250 ML 270 MG IV ×2 (05:19→16:32)
[2020-11-12] MEDS: Omeprazole 20 MG CAPSULE.DR PO (05:19)
[2020-11-12 07:47] LABS: Glucose, Whole Blood 100 mg/dL (60-115)
[2020-11-12 08:00] VITALS: BP 127/78; PULSE 77; RESP 20; TEMP 36.6; O2SAT 96
[2020-11-12] MEDS: Gabapentin 600 MG TABLET PO ×3 (09:14→22:12)
[2020-11-12] MEDS: ARIPiprazole 15 MG TABLET PO (09:14)
[2020-11-12] MEDS: buPROPion HCl XL 300 MG TAB.ER.24H PO (09:14)
[2020-11-12] MEDS: Aspirin Enteric Coated 81 MG TABLET.DR PO (09:14)
[2020-11-12] MEDS: Cholecalciferol (Vitamin D3) 25 MCG TABLET 50 MCG PO (09:14)
[2020-11-12] MEDS: 0.9 % Sodium Chloride Flush 3 ML SYRINGE IVFLUSH ×2 (09:15→22:15)
[2020-11-12] MEDS: Nicotine 21 MG PATCH.TD24 TRANSDERMA (09:15)
[2020-11-12] MEDS: Venlafaxine HCl ER 150 MG CAP.ER.24H PO (09:15)
[2020-11-12] MEDS: Venlafaxine HCl ER 75 MG CAP.ER.24H PO (09:15)
[2020-11-12 11:41] LABS: Glucose, Whole Blood 106 mg/dL (60-115)
[2020-11-12 12:00] VITALS: BP 121/67; PULSE 76; RESP 20; TEMP 36.5; O2SAT 96
[2020-11-12] MEDS: Enoxaparin Sodium 40 MG/0.4 ML SYRINGE SUBCUT (12:08)
[2020-11-12] MEDS: oxyCODONE HCl Immed Release 5 MG TABLET PO (12:11)
--- NOTE | 2020-11-12 14:10 | HO.PM.IMPN ---
Subjective Subjective Date of Service: 11/12/20 Interval History: Feels better this a.m., complaining of less left arm pain and swelling, no episodes of fever chills, no other acute issues overnight. Review of Systems General no headache, no dizziness, no fever chills.? CVS no chest pain, no palpitation.? Respiratory no cough, no sob.? Gastrointestinal no nausea, no vomiting, no abdominal pain Review of Systems: Yes all other systems are reviewed and are negative Physical Exam Vital Signs: Vital Signs: Last Vital Signs Temp 97.7 F 11/12/20 12:00 Pulse 76 11/12/20 12:00 Resp 20 11/12/20 12:00 BP 121/67 11/12/20 12:00 Pulse Ox 96 11/12/20 12:00 Body Mass Index 28.4 General alert oriented x3, acute distress.? Neck? supple, no JVD. CVS? regular rate rhythm, Respiratory lungs clear to auscultation, no respiratory distress, no wheeze, no rhonchi. Gastrointestinalabdomen soft, nontender, bowel sounds audible, no guarding , no rigidity. Extremities no edema. Left elbow significant improvement in redness , swelling, dressing in place over left elbow no drainage noted Neuro nonfocal,speech clear. Skin no rash Psych appropriate affect Objective Data Active Medications Acetaminophen (Acetaminophen 325 Mg Tablet) 650 mg PO Q6H PRN PRN Reason: Pain, Mild (Pain Scale 1-3) Last Admin: 11/10/20 22:26 Dose: 650 mg Documented by: ELSA Aripiprazole (Aripiprazole 15 Mg Tablet) 15 mg PO DAILY [facility] Last Admin: 11/12/20 09:14 Dose: 15 mg Documented by: RANDY Aspirin (Aspirin Enteric Coated 81 Mg Tablet.) 81 mg PO DAILY [facility] Last Admin: 11/12/20 09:14 Dose: 81 mg Documented by: RANDY Atorvastatin Calcium (Atorvastatin Calcium 80 Mg Tablet) 80 mg PO BEDTIME [facility] Last Admin: 11/11/20 20:34 Dose: 80 mg Documented by: JODI Bupropion HCl (Bupropion Hcl Xl 300 Mg Tab.Er.24h) 300 mg PO DAILY [facility] Last Admin: 11/12/20 09:14 Dose: 300 mg Documented by: RANDY Dextrose (Dextrose 50 % 25 Gm/50 Ml Vial) 25 gm IVPUSH Q15M PRN; Protocol PRN Reason: per Hypoglycemia Standing Ord. Enoxaparin Sodium (Enoxaparin Sodium 40 Mg/0.4 Ml Syringe) 40 mg SUBCUT Q24H [facility] Last Admin: 11/12/20 12:08 Dose: 40 mg Documented by: RANDY Gabapentin (Gabapentin 600 Mg Tablet) 600 mg PO TID [facility] Last Admin: 11/12/20 09:14 Dose: 600 mg Documented by: RANDY Glucose (Glucose Gel 15 Gm Gel..Gram.) 15 gm PO Q15M PRN; Protocol PRN Reason: per Hypoglycemia Standing Ord. Hydroxyzine HCl (Hydroxyzine Hcl 25 Mg Tablet) 25 mg PO BEDTIME [facility] Last Admin: 11/11/20 20:34 Dose: 25 mg Documented by: JODI Vancomycin HCl 1,000 mg/ (Sodium Chloride) 270 mls @ 270 mls/hr IV Q12H [facility] Last Infusion: 11/12/20 06:24 Dose: 0 mls/hr Documented by: JODI Insulin Human Lispro (Insulin Lispro 100 Unit/Ml 3 Ml Vial) 0 unit SUBCUT QIDACHS [facility]; Protocol Last Admin: 11/12/20 11:45 Dose: Not Given Documented by: RANDY Non-Admin Reason: No Insulin Coverage Nicotine (Nicotine 21 Mg Patch.Td24) 21 mg TRANSDERMA DAILY [facility] Last Admin: 11/12/20 09:15 Dose: 21 mg Documented by: RANDY Omeprazole (Omeprazole 20 Mg Capsule.) 20 mg PO DAILY@0630 [facility] Last Admin: 11/12/20 05:19 Dose: 20 mg Documented by: JODI Ondansetron HCl (Ondansetron Hcl 4 Mg/2 Ml Vial) 4 mg IVPUSH Q8H PRN PRN Reason: Nausea and Vomiting Oxycodone HCl (Oxycodone Hcl Immed Release 5 Mg Tablet) 5 mg PO Q6H PRN PRN Reason: Pain, Severe (Pain Scale 7-10) Last Admin: 11/12/20 12:11 Dose: 5 mg Documented by: RANDY Pharmacy Consult (Consult Rx Vancomycin Dosing) 1 each MISCELLANE DAILY PRN PRN Reason: Consult order Prazosin HCl (Prazosin Hcl 1 Mg Capsule) 2 mg PO BEDTIME [facility]; Protocol Last Admin: 11/11/20 20:34 Dose: 2 mg Documented by: JODI Sodium Chloride (0.9 % Sodium Chloride Flush 3 Ml Syringe) 3 ml IVFLUSH QSHIFT [facility] Last Admin: 11/12/20 09:15 Dose: 3 ml Documented by: RANDY Trazodone HCl (Trazodone Hcl 100 Mg Tablet) 100 mg PO BEDTIME [facility] Last Admin: 11/11/20 20:34 Dose: 100 mg Documented by: JODI Venlafaxine HCl (Venlafaxine Hcl Er 75 Mg Cap.Er.24h) 75 mg PO DAILY [facility] Last Admin: 11/12/20 09:15 Dose: 75 mg Documented by: RANDY Venlafaxine HCl (Venlafaxine Hcl Er 150 Mg Cap.Er.24h) 150 mg PO DAILY [facility] Last Admin: 11/12/20 09:15 Dose: 150 mg Documented by: RANDY Vitamin D (Cholecalciferol (Vitamin D3) 25 Mcg Tablet) 50 mcg PO DAILY [facility] Last Admin: 11/12/20 09:14 Dose: 50 mcg Documented by: RANDY Labs CBC & Chem 7: 11/12/20 04:11 11/12/20 04:11 Labs: Laboratory Results - last 24 hr 11/11/20 11/11/20 11/12/20 15:58 19:49 04:11 MCV MCH MCHC RDW Plt Count MPV Immature Gran % (Auto) Neut % (Auto) Lymph % (Auto) Clare % (Auto) Eos % (Auto) Baso % (Auto) Lymph # (Auto) Clare # (Auto) Eos # (Auto) Baso # (Auto) Abs Immat Gran (auto) Absolute Neuts (auto) Absolute Nucleated RBC Nucleated RBC % (auto) Estim Creat Clear Calc 87.6 Estimated GFR > 60 POC Glucose 122 H 132 H Vancomycin Trough 11/12/20 11/12/20 11/12/20 04:11 04:11 07:31 MCV 95.3 MCH 33.0 MCHC 34.6 RDW 12.5 Plt Count 225 MPV 10.7 Immature Gran % (Auto) 0.4 Neut % (Auto) 63.8 Lymph % (Auto) 25.7 Clare % (Auto) 8.2 Eos % (Auto) 1.2 Baso % (Auto) 0.7 Lymph # (Auto) 3.2 Clare # (Auto) 1.0 Eos # (Auto) 0.2 Baso # (Auto) 0.1 Abs Immat Gran (auto) 0.05 H Absolute Neuts (auto) 7.9 Absolute Nucleated RBC 0.000 Nucleated RBC % (auto) 0.0 Estim Creat Clear Calc Estimated GFR POC Glucose 100 Vancomycin Trough 13.1 11/12/20 11:24 MCV MCH MCHC RDW Plt Count MPV Immature Gran % (Auto) Neut % (Auto) Lymph % (Auto) Clare % (Auto) Eos % (Auto) Baso % (Auto) Lymph # (Auto) Clare # (Auto) Eos # (Auto) Baso # (Auto) Abs Immat Gran (auto) Absolute Neuts (auto) Absolute Nucleated RBC Nucleated RBC % (auto) Estim Creat Clear Calc Estimated GFR POC Glucose 106 Vancomycin Trough Microbiology Microbiology Results: Microbiology 11/11/20 16:10 Gram Stain - Final Elbow Aspirate - Aspirate Anaerobic Culture - Preliminary Culture in progress. Gross Specimen Examination - Final Fluid Crystals - Final Joint Fluid Culture - Preliminary Staphylococcus aureus 11/09/20 08:32 Blood Culture - Final Blood - Venous Staphylococcus aureus 11/09/20 08:18 Blood Culture - Final Blood - Venous Staphylococcus aureus Assessment and Plan (1) Staphylococcus aureus bacteremia: Status: Acute (2) COVID-19: Status: Acute (3) Cellulitis: Status: Acute (4) Bursitis: Status: Acute (5) Leukocytosis: Status: Acute (6) Essential hypertension: Status: Acute (7) Type 2 diabetes mellitus with unspecified complications: Status: Acute Assessment and Plan: 50-year-old gentleman with past medical history of diabetes, hypertension, coronary artery disease status post [place] 5 years ago current active smoker presented to [facility] 0 11/15 and diagnosed to have folic current bursitis sent home on NSAIDs and compression therapy return back to ER due to worsening swelling pain and redness of left arm, and noted to have COVID-19 positive. Sepsis due to Left olecranon septic bursitis/cellulitis/staph aureus bacteremia All symptoms of sepsis resolved, leukocytosis slowly trending down, normal lactic acid Continue IV vancomycin day 4, blood cultures x2 positive for Staph aureus Patient seen by Orthopedic surgery and underwent I&D of left olecronon bursitis and small amount of pus drained, patient feels significantly better with less swelling pain and redness Vanco trough 13.1,, follow CBC and trough, renal function stable Doppler study left arm showed no DVT Continue analgesics for pain, no evidence of joint infection, has full range of motion left elbow limited by pain Continue oxycodone for pain control Follow echo Case discussed with both Ortho and ID COVID-19 infection Patient asymptomatic, cont. isolation , as needed cough medication, history of prior COVID infection. Tobacco use disorder Smokes 1 pack per day, counseling done,cont. nicotine patch, explain high risk for coronary artery disease stroke with continued smoking Diabetes mellitus blood sugars stable stable BS,on diabetic diet and insulin sliding scale, takes insulin and metformin at home, hold metformin follow point of care q.i.d.. Coronary artery disease No chest pain continue home medications, aspirin, Lipitor History of depression No acute decompensation continue home medication DVT prophylaxis on Lovenox 40 subQ Code status patient wishes to be full code Quality Stroke Does the patient have a stroke diagnosis?: No VTE Prior VTE?: No VTE Risk Level:: Medical - moderate - high VTE Device Contraindication: Treatment Not Indicated VTE Drug Contraindication: N/A - Med Ordered
[2020-11-12 15:12] VITALS: BP 135/84; PULSE 80; RESP 18; TEMP 36.9; O2SAT 96
[2020-11-12 16:05] LABS: Glucose, Whole Blood 98 mg/dL (60-115)
[2020-11-12 19:08] VITALS: BP 139/81; PULSE 76; RESP 18; TEMP 36.6; O2SAT 99
[2020-11-12 20:34] LABS: Glucose, Whole Blood 96 mg/dL (60-115)
[2020-11-12 22:12] VITALS: BP 138/70; PULSE 77
[2020-11-12] MEDS: Atorvastatin Calcium 80 MG TABLET PO (22:12)
[2020-11-12] MEDS: hydrOXYzine HCL 25 MG TABLET PO (22:12)
[2020-11-12] MEDS: Prazosin HCL 1 MG CAPSULE 2 MG PO (22:12)
[2020-11-12] MEDS: traZODone HCL 100 MG TABLET PO (22:12)
[2020-11-13] VITALS (9 sets, daily range): BP systolic 128–158; BP diastolic 75–90; PULSE 72–77; RESP 18–20; TEMP 36.2–36.9; O2SAT 96–98
[2020-11-13] MEDS: vancomycin HCL 1,000 MG in 0.9 % Sodium Chloride 250 ML 270 MG IV ×2 (05:23→16:57)
[2020-11-13] MEDS: Omeprazole 20 MG CAPSULE.DR PO (05:24)
[2020-11-13 07:29] LABS: Glucose, Whole Blood 92 mg/dL (60-115)
[2020-11-13 07:45] LABS: Creatinine Clr Calc Pharmacy 85.3; Estimated Glomerular Filt Rate > 60
[2020-11-13] MEDS: Cholecalciferol (Vitamin D3) 25 MCG TABLET 50 MCG PO (09:57)
[2020-11-13] MEDS: ARIPiprazole 15 MG TABLET PO (09:57)
[2020-11-13] MEDS: Venlafaxine HCl ER 150 MG CAP.ER.24H PO (09:57)
[2020-11-13] MEDS: Nicotine 21 MG PATCH.TD24 TRANSDERMA (09:57)
[2020-11-13] MEDS: Venlafaxine HCl ER 75 MG CAP.ER.24H PO (09:57)
[2020-11-13] MEDS: Gabapentin 600 MG TABLET PO ×3 (09:57→21:38)
[2020-11-13] MEDS: Aspirin Enteric Coated 81 MG TABLET.DR PO (09:57)
[2020-11-13] MEDS: 0.9 % Sodium Chloride Flush 3 ML SYRINGE IVFLUSH ×3 (09:57→21:43)
[2020-11-13] MEDS: buPROPion HCl XL 300 MG TAB.ER.24H PO (09:57)
[2020-11-13 11:15] LABS: Glucose, Whole Blood 119 mg/dL (60-115)
[2020-11-13] MEDS: Enoxaparin Sodium 40 MG/0.4 ML SYRINGE SUBCUT (14:07)
--- NOTE | 2020-11-13 15:18 | HO.PM.IMPN ---
Subjective Subjective Date of Service: 11/13/20 Interval History: Being followed for left olecranon bursitis, Feels better complaining of left forearm swelling, dressing remain in place, no episodes of fever chills, no other acute issues overnight. Review of Systems General no headache, no dizziness, no fever chills.? CVS no chest pain, no palpitation.? Respiratory no cough, no sob.? Gastrointestinal no nausea, no vomiting, no abdominal pain Review of Systems: Yes all other systems are reviewed and are negative Physical Exam Vital Signs: Vital Signs: Last Vital Signs Temp 97.8 F 11/13/20 15:01 Pulse 77 11/13/20 15:01 Resp 18 11/13/20 15:01 BP 152/90 H 11/13/20 15:01 Pulse Ox 98 11/13/20 15:01 Body Mass Index 28.4 General alert oriented x3,? acute distress.? Neck? supple, no JVD. CVS? regular rate rhythm, Respiratory lungs clear to auscultation, no respiratory distress, no wheeze, no rhonchi. Gastrointestinalabdomen soft, nontender, bowel sounds audible, no guarding , no rigidity. Extremities no edema. Left elbow significant improvement in redness , mild swelling , dressing removed from left elbow, significant improvement and redness and swelling, incision site healed Neuro nonfocal,speech clear. Skin no rash Psych appropriate affect Objective Data Active Medications Acetaminophen (Acetaminophen 325 Mg Tablet) 650 mg PO Q6H PRN PRN Reason: Pain, Mild (Pain Scale 1-3) Last Admin: 11/10/20 22:26 Dose: 650 mg Documented by: ELSA Aripiprazole (Aripiprazole 15 Mg Tablet) 15 mg PO DAILY [facility] Last Admin: 11/13/20 09:57 Dose: 15 mg Documented by: MICHELLE Aspirin (Aspirin Enteric Coated 81 Mg Tablet.Dr) 81 mg PO DAILY [facility] Last Admin: 11/13/20 09:57 Dose: 81 mg Documented by: MICHELLE Atorvastatin Calcium (Atorvastatin Calcium 80 Mg Tablet) 80 mg PO BEDTIME [facility] Last Admin: 11/12/20 22:12 Dose: 80 mg Documented by: KATARZYNA Bupropion HCl (Bupropion Hcl Xl 300 Mg Tab.Er.24h) 300 mg PO DAILY [facility] Last Admin: 11/13/20 09:57 Dose: 300 mg Documented by: MICHELLE Dextrose (Dextrose 50 % 25 Gm/50 Ml Vial) 25 gm IVPUSH Q15M PRN; Protocol PRN Reason: per Hypoglycemia Standing Ord. Enoxaparin Sodium (Enoxaparin Sodium 40 Mg/0.4 Ml Syringe) 40 mg SUBCUT Q24H [facility] Last Admin: 11/13/20 14:07 Dose: 40 mg Documented by: MICHELLE Gabapentin (Gabapentin 600 Mg Tablet) 600 mg PO TID [facility] Last Admin: 11/13/20 15:04 Dose: 600 mg Documented by: MICHELLE Glucose (Glucose Gel 15 Gm Gel..Gram.) 15 gm PO Q15M PRN; Protocol PRN Reason: per Hypoglycemia Standing Ord. Hydroxyzine HCl (Hydroxyzine Hcl 25 Mg Tablet) 25 mg PO BEDTIME [facility] Last Admin: 11/12/20 22:12 Dose: 25 mg Documented by: KATARZYNA Vancomycin HCl 1,000 mg/ (Sodium Chloride) 270 mls @ 270 mls/hr IV Q12H [facility] Last Infusion: 11/13/20 06:44 Dose: 0 mls/hr Documented by: KATARZYNA Insulin Human Lispro (Insulin Lispro 100 Unit/Ml 3 Ml Vial) 0 unit SUBCUT QIDACHS [facility]; Protocol Last Admin: 11/13/20 11:26 Dose: Not Given Documented by: MICHELLE Non-Admin Reason: No Insulin Coverage Nicotine (Nicotine 21 Mg Patch.Td24) 21 mg TRANSDERMA DAILY [facility] Last Admin: 11/13/20 09:57 Dose: 21 mg Documented by: MICHELLE Omeprazole (Omeprazole 20 Mg Capsule.) 20 mg PO DAILY@0630 [facility] Last Admin: 11/13/20 05:24 Dose: 20 mg Documented by: KATARZYNA Ondansetron HCl (Ondansetron Hcl 4 Mg/2 Ml Vial) 4 mg IVPUSH Q8H PRN PRN Reason: Nausea and Vomiting Oxycodone HCl (Oxycodone Hcl Immed Release 5 Mg Tablet) 5 mg PO Q6H PRN PRN Reason: Pain, Severe (Pain Scale 7-10) Last Admin: 11/12/20 12:11 Dose: 5 mg Documented by: RANDY Pharmacy Consult (Consult Rx Vancomycin Dosing) 1 each MISCELLANE DAILY PRN PRN Reason: Consult order Prazosin HCl (Prazosin Hcl 1 Mg Capsule) 2 mg PO BEDTIME [facility]; Protocol Last Admin: 11/12/20 22:12 Dose: 2 mg Documented by: KATARZYNA Sodium Chloride (0.9 % Sodium Chloride Flush 3 Ml Syringe) 3 ml IVFLUSH QSHIFT [facility] Last Admin: 11/13/20 15:03 Dose: 3 ml Documented by: MICHELLE Trazodone HCl (Trazodone Hcl 100 Mg Tablet) 100 mg PO BEDTIME [facility] Last Admin: 11/12/20 22:12 Dose: 100 mg Documented by: KATARZYNA Venlafaxine HCl (Venlafaxine Hcl Er 75 Mg Cap.Er.24h) 75 mg PO DAILY [facility] Last Admin: 11/13/20 09:57 Dose: 75 mg Documented by: MICHELLE Venlafaxine HCl (Venlafaxine Hcl Er 150 Mg Cap.Er.24h) 150 mg PO DAILY [facility] Last Admin: 11/13/20 09:57 Dose: 150 mg Documented by: MICHELLE Vitamin D (Cholecalciferol (Vitamin D3) 25 Mcg Tablet) 50 mcg PO DAILY [facility] Last Admin: 11/13/20 09:57 Dose: 50 mcg Documented by: MICHELLE Labs CBC & Chem 7: 11/12/20 04:11 11/13/20 06:50 Labs: Laboratory Results - last 24 hr 11/12/20 11/12/20 11/13/20 15:59 20:30 06:50 Estim Creat Clear Calc 85.3 Estimated GFR > 60 POC Glucose 98 96 11/13/20 11/13/20 07:18 11:07 Estim Creat Clear Calc Estimated GFR POC Glucose 92 119 H Microbiology Microbiology Results: Microbiology 11/11/20 16:10 Gram Stain - Final Elbow Aspirate - Aspirate Anaerobic Culture - Preliminary Culture in progress. Gross Specimen Examination - Final Fluid Crystals - Final Joint Fluid Culture - Final Staphylococcus aureus Assessment and Plan (1) Staphylococcus aureus bacteremia: Status: Acute (2) COVID-19: Status: Acute (3) Cellulitis: Status: Acute (4) Bursitis: Status: Acute (5) Sepsis: Status: Acute (6) Tobacco use disorder: Status: Acute Assessment and Plan: 50-year-old gentleman with past medical history of diabetes, hypertension, coronary artery disease status post [place] 5 years ago current active smoker presented to [facility] 0 11/15 and diagnosed to have folic current bursitis sent home on NSAIDs and compression therapy return back to ER due to worsening swelling pain and redness of left arm, and noted to have COVID-19 positive. Sepsis due to Left olecranon septic bursitis/cellulitis/staph aureus bacteremia All symptoms of sepsis resolved, leukocytosis slowly trending down, normal lactic acid Continue IV vancomycin day 5, blood cultures x2 positive for Staph aureus s/p I&D of left olecronon bursitis on 11/11/20 small amount of pus drained, incision site well healed Vanco trough 13.1,, follow CBC and trough, renal function stable Doppler study left arm showed no DVT Continue analgesics for pain, no evidence of joint infection, has full range of motion left elbow limited by pain Continue oxycodone for pain control Follow echo Will discuss choice/duration of antibiotic with ID COVID-19 infection Patient asymptomatic, cont. isolation , as needed cough medication, history of prior COVID infection. Tobacco use disorder Smokes 1 pack per day, counseling done,cont. nicotine patch, explain high risk for coronary artery disease stroke with continued smoking Diabetes mellitus blood sugars stable stable BS,on diabetic diet and insulin sliding scale, takes insulin and metformin at home, hold metformin follow point of care q.i.d.. Coronary artery disease No chest pain continue home medications, aspirin, Lipitor History of depression No acute decompensation continue home medication DVT prophylaxis on Lovenox 40 subQ Code status patient wishes to be full code Quality Stroke Does the patient have a stroke diagnosis?: No VTE Prior VTE?: No VTE Risk Level:: Medical - moderate - high VTE Device Contraindication: Treatment Not Indicated VTE Drug Contraindication: N/A - Med Ordered
[2020-11-13 16:11] LABS: Glucose, Whole Blood 112 mg/dL (60-115)
[2020-11-13 16:38] LABS: Vancomycin Trough 16.8 mcg/mL (10.0-20.0)
[2020-11-13] MEDS: lisinopriL 10 MG TABLET PO (16:58)
[2020-11-13 20:19] LABS: Glucose, Whole Blood 128 mg/dL (60-115)
[2020-11-13] MEDS: hydrOXYzine HCL 25 MG TABLET PO (21:38)
[2020-11-13] MEDS: Atorvastatin Calcium 80 MG TABLET PO (21:38)
[2020-11-13] MEDS: Prazosin HCL 1 MG CAPSULE 2 MG PO (21:38)
[2020-11-13] MEDS: traZODone HCL 100 MG TABLET PO (21:38)
[2020-11-14] VITALS (8 sets, daily range): BP systolic 135–154; BP diastolic 74–90; PULSE 71–80; RESP 18–20; TEMP 36.2–37.4; O2SAT 93–98
[2020-11-14 05:26] LABS: Creatinine Clr Calc Pharmacy 80.6; Estimated Glomerular Filt Rate > 60
[2020-11-14] MEDS: vancomycin HCL 750 MG in 0.9 % Sodium Chloride 250 ML 265 MG IV (06:14)
[2020-11-14] MEDS: Omeprazole 20 MG CAPSULE.DR PO (06:15)
[2020-11-14 07:21] LABS: Glucose, Whole Blood 117 mg/dL (60-115)
[2020-11-14] MEDS: buPROPion HCl XL 300 MG TAB.ER.24H PO (09:10)
[2020-11-14] MEDS: lisinopriL 10 MG TABLET PO (09:10)
[2020-11-14] MEDS: ARIPiprazole 15 MG TABLET PO (09:10)
[2020-11-14] MEDS: 0.9 % Sodium Chloride Flush 3 ML SYRINGE IVFLUSH ×3 (09:10→21:00)
[2020-11-14] MEDS: Aspirin Enteric Coated 81 MG TABLET.DR PO (09:10)
[2020-11-14] MEDS: Cholecalciferol (Vitamin D3) 25 MCG TABLET 50 MCG PO (09:10)
[2020-11-14] MEDS: Venlafaxine HCl ER 150 MG CAP.ER.24H PO (09:10)
[2020-11-14] MEDS: Gabapentin 600 MG TABLET PO ×3 (09:11→21:00)
[2020-11-14] MEDS: Venlafaxine HCl ER 75 MG CAP.ER.24H PO (09:11)
[2020-11-14] MEDS: Nicotine 21 MG PATCH.TD24 TRANSDERMA (09:15)
[2020-11-14 10:58] LABS: Glucose, Whole Blood 167 mg/dL (60-115)
[2020-11-14] MEDS: Insulin Lispro 100 UNIT/ML 3 ML VIAL SUBCUT (12:09)
[2020-11-14] MEDS: Enoxaparin Sodium 40 MG/0.4 ML SYRINGE SUBCUT (12:10)
--- NOTE | 2020-11-14 12:40 | MHC.CM.PN ---
Patient will now need Home LT IVABT and will likely be dc to home tomorrow with new [facility]. CM will follow.
--- NOTE | 2020-11-14 15:18 | P.PNIM_ITS ---
Subjective Subjective Date of Service: 11/14/20 Interval History: Being followed for a Staph bacteremia and left elbow bursitis, denies pain, no fevers no chills, no other acute issues overnight. Review of Systems General no headache, no dizziness, no fever chills.? CVS no chest pain, no palpitation.? Respiratory no cough, no sob.? Gastrointestinal no nausea, no vomiting, no abdominal pain Review of Systems: Yes all other systems are reviewed and are negative Physical Exam Vital Signs: Vital Signs: Last Vital Signs Temp 97.6 F 11/14/20 11:07 Pulse 71 11/14/20 11:07 Resp 18 11/14/20 11:07 BP 139/83 11/14/20 11:07 Pulse Ox 98 11/14/20 11:07 Body Mass Index 28.4 General alert oriented x3,? acute distress.? Neck? supple, no JVD. CVS? regular rate rhythm, Respiratory lungs clear to auscultation, no respiratory distress, no wheeze, no rhonchi. Gastrointestinalabdomen soft, nontender, bowel sounds audible, no guarding , no rigidity. Extremities no edema. Left elbow swelling and erythema resolved, no tenderness on palpation, good range of motion left elbow Neuro nonfocal,speech clear. Skin no rash Psych appropriate affect Objective Data Active Medications Acetaminophen (Acetaminophen 325 Mg Tablet) 650 mg PO Q6H PRN PRN Reason: Pain, Mild (Pain Scale 1-3) Last Admin: 11/10/20 22:26 Dose: 650 mg Documented by: ELSA Aripiprazole (Aripiprazole 15 Mg Tablet) 15 mg PO DAILY [facility] Last Admin: 11/14/20 09:10 Dose: 15 mg Documented by: GWENDOLYN Aspirin (Aspirin Enteric Coated 81 Mg Tablet.) 81 mg PO DAILY [facility] Last Admin: 11/14/20 09:10 Dose: 81 mg Documented by: GWENDOLYN Atorvastatin Calcium (Atorvastatin Calcium 80 Mg Tablet) 80 mg PO BEDTIME [facility] Last Admin: 11/13/20 21:38 Dose: 80 mg Documented by: KATARZYNA Bupropion HCl (Bupropion Hcl Xl 300 Mg Tab.Er.24h) 300 mg PO DAILY [facility] Last Admin: 11/14/20 09:10 Dose: 300 mg Documented by: GWENDOLYN Dextrose (Dextrose 50 % 25 Gm/50 Ml Vial) 25 gm IVPUSH Q15M PRN; Protocol PRN Reason: per Hypoglycemia Standing Ord. Enoxaparin Sodium (Enoxaparin Sodium 40 Mg/0.4 Ml Syringe) 40 mg SUBCUT Q24H [facility] Last Admin: 11/14/20 12:10 Dose: 40 mg Documented by: GWENDOLYN Gabapentin (Gabapentin 600 Mg Tablet) 600 mg PO TID [facility] Last Admin: 11/14/20 09:11 Dose: 600 mg Documented by: GWENDOLYN Glucose (Glucose Gel 15 Gm Gel..Gram.) 15 gm PO Q15M PRN; Protocol PRN Reason: per Hypoglycemia Standing Ord. Hydroxyzine HCl (Hydroxyzine Hcl 25 Mg Tablet) 25 mg PO BEDTIME [facility] Last Admin: 11/13/20 21:38 Dose: 25 mg Documented by: KATARZYNA Vancomycin HCl 750 mg/ Sodium (Chloride) 265 mls @ 265 mls/hr IV Q12H [facility] Last Infusion: 11/14/20 09:21 Dose: 0 mls/hr Documented by: GWENDOLYN Insulin Human Lispro (Insulin Lispro 100 Unit/Ml 3 Ml Vial) 0 unit SUBCUT QIDACHS [facility]; Protocol Last Admin: 11/14/20 12:09 Dose: 2 unit Documented by: GWENDOLYN Lisinopril (Lisinopril 10 Mg Tablet) 10 mg PO DAILY [facility]; Protocol Last Admin: 11/14/20 09:10 Dose: 10 mg Documented by: GWENDOLYN Nicotine (Nicotine 21 Mg Patch.Td24) 21 mg TRANSDERMA DAILY [facility] Last Admin: 11/14/20 09:15 Dose: 21 mg Documented by: GWENDOLYN Omeprazole (Omeprazole 20 Mg Capsule.) 20 mg PO DAILY@0630 [facility] Last Admin: 11/14/20 06:15 Dose: 20 mg Documented by: KATARZYNA Ondansetron HCl (Ondansetron Hcl 4 Mg/2 Ml Vial) 4 mg IVPUSH Q8H PRN PRN Reason: Nausea and Vomiting Pharmacy Consult (Consult Rx Vancomycin Dosing) 1 each MISCELLANE DAILY PRN PRN Reason: Consult order Prazosin HCl (Prazosin Hcl 1 Mg Capsule) 2 mg PO BEDTIME [facility]; Protocol Last Admin: 11/13/20 21:38 Dose: 2 mg Documented by: KATARZYNA Sodium Chloride (0.9 % Sodium Chloride Flush 3 Ml Syringe) 3 ml IVFLUSH QSHIFT [facility] Last Admin: 11/14/20 09:10 Dose: 3 ml Documented by: GWENDOLYN Trazodone HCl (Trazodone Hcl 100 Mg Tablet) 100 mg PO BEDTIME [facility] Last Admin: 11/13/20 21:38 Dose: 100 mg Documented by: KATARZYNA Venlafaxine HCl (Venlafaxine Hcl Er 75 Mg Cap.Er.24h) 75 mg PO DAILY [facility] Last Admin: 11/14/20 09:11 Dose: 75 mg Documented by: GWENDOLYN Venlafaxine HCl (Venlafaxine Hcl Er 150 Mg Cap.Er.24h) 150 mg PO DAILY [facility] Last Admin: 11/14/20 09:10 Dose: 150 mg Documented by: GWENDOLYN Vitamin D (Cholecalciferol (Vitamin D3) 25 Mcg Tablet) 50 mcg PO DAILY [facility] Last Admin: 11/14/20 09:10 Dose: 50 mcg Documented by: GWENDOLYN Labs CBC & Chem 7: 11/12/20 04:11 11/14/20 04:52 Labs: Laboratory Results - last 24 hr 11/13/20 11/13/20 11/13/20 15:59 16:03 20:13 Estim Creat Clear Calc Estimated GFR POC Glucose 112 128 H Vancomycin Trough 16.8 11/14/20 11/14/20 11/14/20 04:52 04:52 07:17 Estim Creat Clear Calc 80.6 Estimated GFR > 60 POC Glucose 117 H Vancomycin Trough 17.0 11/14/20 10:54 Estim Creat Clear Calc Estimated GFR POC Glucose 167 H Vancomycin Trough Microbiology Microbiology Results: Microbiology 11/11/20 16:10 Gram Stain - Final Elbow Aspirate - Aspirate Anaerobic Culture - Preliminary Culture in progress. Gross Specimen Examination - Final Fluid Crystals - Final Joint Fluid Culture - Final Staphylococcus aureus Assessment and Plan (1) Tobacco use disorder: Status: Acute (2) Sepsis: Status: Acute (3) Staphylococcus aureus bacteremia: Status: Acute (4) Gram-positive cocci bacteremia: Status: Acute (5) Cellulitis: Status: Acute (6) Bursitis: Status: Acute Assessment and Plan: 50-year-old gentleman with past medical history of diabetes, hypertension, coronary artery disease status post [place] 5 years ago current active smoker presented to [facility] 0 11/15 and diagnosed to have folic current bursitis sent home on NSAIDs and compression therapy return back to ER due to worsening swelling pain and redness of left arm, and noted to have COVID-19 positive. Sepsis due to Left olecranon septic bursitis/cellulitis/staph aureus bacteremia All symptoms of sepsis resolved, leukocytosis trended down, normal lactic acid on IV vancomycin day 6, blood cultures x2 positive for MSSA s/p I&D of left olecronon bursitis on 11/11/20 small amount of pus drained, incision site well healed Vanco trough 17, follow CBC and trough, renal function stable Doppler study left arm showed no DVT Echo showed no vegetation Repeat blood culture Place PICC line for total 4 weeks of IV Kefzol. COVID-19 infection Patient asymptomatic, cont. isolation , as needed cough medication, history of prior COVID infection. Tobacco use disorder Smokes 1 pack per day, counseling done,cont. nicotine patch, explain high risk for coronary artery disease stroke with continued smoking, patient wishes to be discharged home on nicotine patch Diabetes mellitus blood sugars stable stable BS,on diabetic diet and insulin sliding scale, takes insulin and metformin at home, hold metformin follow point of care q.i.d.. Coronary artery disease No chest pain continue home medications, aspirin, Lipitor History of depression No acute decompensation continue home medication DVT prophylaxis on Lovenox 40 subQ Code status patient wishes to be full code Quality Stroke Does the patient have a stroke diagnosis?: No VTE Prior VTE?: No VTE Risk Level:: Medical - moderate - high VTE Device Contraindication: Treatment Not Indicated VTE Drug Contraindication: N/A - Med Ordered
[2020-11-14 16:02] LABS: Glucose, Whole Blood 136 mg/dL (60-115)
[2020-11-14] MEDS: ceFAZolin Sodium/Dextrose,Iso 2 GM/50 ML PIGGYBACK IV (17:00)
[2020-11-14 20:06] LABS: Glucose, Whole Blood 136 mg/dL (60-115)
[2020-11-14] MEDS: Prazosin HCL 1 MG CAPSULE 2 MG PO (20:59)
[2020-11-14] MEDS: traZODone HCL 100 MG TABLET PO (20:59)
[2020-11-14] MEDS: Atorvastatin Calcium 80 MG TABLET PO (21:00)
[2020-11-14] MEDS: hydrOXYzine HCL 25 MG TABLET PO (21:00)
[2020-11-15] VITALS (7 sets, daily range): BP systolic 136–179; BP diastolic 71–100; PULSE 69–84; RESP 18–20; TEMP 36.3–37.1; O2SAT 93–99
[2020-11-15] MEDS: ceFAZolin Sodium/Dextrose,Iso 2 GM/50 ML PIGGYBACK IV ×3 (02:10→17:01)
[2020-11-15] MEDS: Omeprazole 20 MG CAPSULE.DR PO (05:17)
--- NOTE | 2020-11-15 07:11 | PM.CNOR ---
History of Present Illness HPI Consult date: 11/11/20 Chief complaint: septic olecranon bursitis/covid 19 Narrative: 50-year-old gentleman with past medical history significant for diabetes mellitus, hyperlipidemia, history of myocardial infarction was seen in the ED 11/07 for left elbow pain and swelling and was diagnosed with olecranon bursitis and was sent home on NSAIDs and compression, however patient returned to [facility] due to worsening redness and swelling / pain. While in the emergency room patient noted to have low-grade fever, tachycardia and elevated WBC count. patient treated with IV antibiotic and admitted for continued monitoring and treatment, Orthopedics consulted for further recommendations of the elbow. Patient is Covid-19+ Review of Systems Review of Systems: Yes all other systems are reviewed and are negative PMFSH Past Medical History Medical History Anxiety Arthritis Depression Diabetes High cholesterol High cholesterol History of myocardial infarction HTN (hypertension) Hyperlipidemia LDL goal <70 Normal echocardiogram Family History Family History Mother Alzheimer disease HTN (hypertension) Father Old age Brother Diabetes mellitus Maternal Grandmother Diabetes mellitus Heart disease Family history: reviewed and not pertinent Surgical History Surgical History H/O cardiac catheterization History of appendectomy Hx of foot surgery Social History Social History Household Members: Friend(s) Household Members Other:: Roommate Housing: House Do you presently have visiting nurse or other home services: No Alcohol intake: current Alcohol intake frequency: does not drink Patient Tobacco Use Status: Current everyday Tobacco user Tobacco use type: Cigarette Second Hand Smoke Exposure: No Substance Use Type: Crack/Cocaine and Other Advance Directives: No Advance Directives Information Provided: No service: No Current occupational status: disabled Meds Allergies Allergy/AdvReac Type Severity Reaction Status Date / Time No Known Allergies Allergy Unverified 11/07/20 21:24 [No Known Allergies*] Active Medications: Current Medications Acetaminophen (Acetaminophen 325 Mg Tablet) 650 mg PO Q6H PRN PRN Reason: Pain, Mild (Pain Scale 1-3) Last Admin: 11/10/20 22:26 Dose: 650 mg Documented by: Aripiprazole (Aripiprazole 15 Mg Tablet) 15 mg PO DAILY [facility] Last Admin: 11/14/20 09:10 Dose: 15 mg Documented by: Aspirin (Aspirin Enteric Coated 81 Mg Tablet.) 81 mg PO DAILY [facility] Last Admin: 11/14/20 09:10 Dose: 81 mg Documented by: Atorvastatin Calcium (Atorvastatin Calcium 80 Mg Tablet) 80 mg PO BEDTIME [facility] Last Admin: 11/14/20 21:00 Dose: 80 mg Documented by: Bupropion HCl (Bupropion Hcl Xl 300 Mg Tab.Er.24h) 300 mg PO DAILY [facility] Last Admin: 11/14/20 09:10 Dose: 300 mg Documented by: Dextrose (Dextrose 50 % 25 Gm/50 Ml Vial) 25 gm IVPUSH Q15M PRN; Protocol PRN Reason: per Hypoglycemia Standing Ord. Enoxaparin Sodium (Enoxaparin Sodium 40 Mg/0.4 Ml Syringe) 40 mg SUBCUT Q24H [facility] Last Admin: 11/14/20 12:10 Dose: 40 mg Documented by: Gabapentin (Gabapentin 600 Mg Tablet) 600 mg PO TID [facility] Last Admin: 11/14/20 21:00 Dose: 600 mg Documented by: Glucose (Glucose Gel 15 Gm Gel..Gram.) 15 gm PO Q15M PRN; Protocol PRN Reason: per Hypoglycemia Standing Ord. Hydroxyzine HCl (Hydroxyzine Hcl 25 Mg Tablet) 25 mg PO BEDTIME [facility] Last Admin: 11/14/20 21:00 Dose: 25 mg Documented by: Cefazolin Sodium/Dextrose (Ancef) 2 gm in 50 mls @ 100 mls/hr IV Q8H [facility] Last Infusion: 11/15/20 03:20 Dose: Infused Documented by: Insulin Human Lispro (Insulin Lispro 100 Unit/Ml 3 Ml Vial) 0 unit SUBCUT QIDACHS [facility]; Protocol Last Admin: 11/14/20 20:13 Dose: Not Given Documented by: Lisinopril (Lisinopril 10 Mg Tablet) 10 mg PO DAILY [facility]; Protocol Last Admin: 11/14/20 09:10 Dose: 10 mg Documented by: Nicotine (Nicotine 21 Mg Patch.Td24) 21 mg TRANSDERMA DAILY [facility] Last Admin: 11/14/20 09:15 Dose: 21 mg Documented by: Omeprazole (Omeprazole 20 Mg Capsule.) 20 mg PO DAILY@0630 [facility] Last Admin: 11/15/20 05:17 Dose: 20 mg Documented by: Ondansetron HCl (Ondansetron Hcl 4 Mg/2 Ml Vial) 4 mg IVPUSH Q8H PRN PRN Reason: Nausea and Vomiting Pharmacy Consult (Consult Rx Vancomycin Dosing) 1 each MISCELLANE DAILY PRN PRN Reason: Consult order Prazosin HCl (Prazosin Hcl 1 Mg Capsule) 2 mg PO BEDTIME [facility]; Protocol Last Admin: 11/14/20 20:59 Dose: 2 mg Documented by: Sodium Chloride (0.9 % Sodium Chloride Flush 3 Ml Syringe) 3 ml IVFLUSH QSHIFT [facility] Last Admin: 11/14/20 21:00 Dose: 3 ml Documented by: Trazodone HCl (Trazodone Hcl 100 Mg Tablet) 100 mg PO BEDTIME [facility] Last Admin: 11/14/20 20:59 Dose: 100 mg Documented by: Venlafaxine HCl (Venlafaxine Hcl Er 75 Mg Cap.Er.24h) 75 mg PO DAILY [facility] Last Admin: 11/14/20 09:11 Dose: 75 mg Documented by: Venlafaxine HCl (Venlafaxine Hcl Er 150 Mg Cap.Er.24h) 150 mg PO DAILY [facility] Last Admin: 11/14/20 09:10 Dose: 150 mg Documented by: Vitamin D (Cholecalciferol (Vitamin D3) 25 Mcg Tablet) 50 mcg PO DAILY [facility] Last Admin: 11/14/20 09:10 Dose: 50 mcg Documented by: Home Medications Medication Instructions Recorded Confirmed Last Taken Type aripiprazole 15 mg tablet 15 mg PO DAILY 07/20/20 11/09/20 Unknown History bupropion HCl 300 mg 24 hr tablet, 300 mg PO DAILY 07/20/20 11/09/20 Unknown History extended release lancets 33 gauge #100 ea 07/20/20 11/08/20 Unknown History omeprazole 20 mg capsule,delayed 20 mg PO DAILY 07/20/20 11/09/20 Unknown History release pen needle, diabetic 32 gauge x #50 ea 07/20/20 11/08/20 Unknown History trazodone 100 mg tablet 100 mg PO BEDTIME 07/20/20 11/09/20 Unknown History venlafaxine 150 mg 150 mg PO DAILY 07/20/20 11/09/20 Unknown History capsule,extended release 24 hr cholecalciferol (vitamin D3) 50 50 mcg PO QAM 11/03/20 11/09/20 Unknown History mcg (2,000 unit) capsule gabapentin 600 mg tablet 1 tab PO TID 11/09/20 11/09/20 Unknown History hydroxyzine pamoate 25 mg capsule 1 cap PO BEDTIME 11/09/20 11/09/20 Unknown History lisinopril 10 mg tablet 1 tab PO QAM 11/09/20 11/09/20 Unknown History metformin 500 mg tablet,extended 2 tab PO BID 11/09/20 11/09/20 Unknown History release 24 hr nitroglycerin 0.3 mg sublingual 1 tab SUBLINGUAL USEASDIRECTD 11/09/20 11/09/20 Unknown History tablet prazosin 2 mg capsule 1 cap PO BEDTIME 11/09/20 11/09/20 Unknown History venlafaxine 75 mg capsule,extended 75 mg PO DAILY 11/09/20 11/09/20 Unknown History release 24 hr Physical Exam Vital Signs: Vital Signs: Last Vital Signs Temp 97.8 F 11/15/20 04:00 Pulse 72 11/15/20 04:00 Resp 20 11/15/20 04:00 BP 152/91 H 11/15/20 04:00 Pulse Ox 94 11/15/20 04:00 Body Mass Index 28.4 Extrem: Other: Left elbow small amount of swelling and fluctulance over the olecranon bursa, Minimal redness. No pain with active or passive ROM. Results Labs Result Diagrams: 11/18/20 06:21 11/16/20 06:10 Labs: Abnormal lab results 11/14/20 11/14/20 11/14/20 Range/Units 07:17 10:54 15:58 POC Glucose 117 H 167 H 136 H (60-115) mg/dL 11/14/20 Range/Units 20:00 POC Glucose 136 H (60-115) mg/dL H & H 11/09/20 11/10/20 11/11/20 Range/Units 08:18 06:00 06:20 Hgb 14.1 12.9 L 12.8 L (14.0-18.0) g/dl Hct 40.8 L 37.4 L 36.3 L (42-52) % 11/12/20 Range/Units 04:11 Hgb 12.6 L (14.0-18.0) g/dl Hct 36.4 L (42-52) % All other labs normal. Assessment and Plan (1) Olecranon bursitis of left elbow: Status: Acute aspirated a small amount of pus from the bursa and then was able to express more out. applied compression dressing and sent to lab for culture/braeden stain results may not be accurate due to current abx no need for surgical intervention Procedures Date of Service Date of Service: 11/11/20 Joint Aspiration/Injection Joint Asp./Inject. 1: Side of body: left Joint Aspirated/Injected: elbow Skin prep: Povidone-Iodine1% Needle size used: 18G Fluid obtained: purulent Total fluid obtained (ml): 1 Patient tolerated procedure: well
[2020-11-15 07:19] LABS: Glucose, Whole Blood 119 mg/dL (60-115)
[2020-11-15 07:31] LABS: Creatinine Clr Calc Pharmacy 71.4; Estimated Glomerular Filt Rate 53
[2020-11-15] MEDS: Venlafaxine HCl ER 150 MG CAP.ER.24H PO (09:16)
[2020-11-15] MEDS: lisinopriL 10 MG TABLET PO (09:16)
[2020-11-15] MEDS: Gabapentin 600 MG TABLET PO ×3 (09:16→20:05)
[2020-11-15] MEDS: Venlafaxine HCl ER 75 MG CAP.ER.24H PO (09:16)
[2020-11-15] MEDS: ARIPiprazole 15 MG TABLET PO (09:16)
[2020-11-15] MEDS: buPROPion HCl XL 300 MG TAB.ER.24H PO (09:16)
[2020-11-15] MEDS: Cholecalciferol (Vitamin D3) 25 MCG TABLET 50 MCG PO (09:16)
[2020-11-15] MEDS: Nicotine 21 MG PATCH.TD24 TRANSDERMA (09:16)
[2020-11-15] MEDS: Aspirin Enteric Coated 81 MG TABLET.DR PO (09:16)
[2020-11-15] MEDS: 0.9 % Sodium Chloride Flush 3 ML SYRINGE IVFLUSH ×3 (09:17→20:05)
[2020-11-15 11:04] LABS: Glucose, Whole Blood 128 mg/dL (60-115)
--- NOTE | 2020-11-15 11:50 | P.PNIM_ITS ---
Subjective Subjective Date of Service: 11/15/20 Interval History: Being followed for a Staph bacteremia and left elbow bursitis, patient offers no acute complaints, denies pain, no fevers no chills, no acute issues overnight. Review of Systems General no headache, no dizziness, no fever chills.? CVS no chest pain, no palpitation.? Respiratory no cough, no sob.? Gastrointestinal no nausea, no vomiting, no abdominal pain Review of Systems: Yes all other systems are reviewed and are negative Physical Exam Vital Signs: Vital Signs: Last Vital Signs Temp 98.7 F 11/15/20 11:21 Pulse 69 11/15/20 11:21 Resp 18 11/15/20 11:21 BP 164/98 H 11/15/20 11:21 Pulse Ox 95 11/15/20 11:21 Body Mass Index 28.4 General alert oriented x3,? acute distress.? Neck? supple, no JVD. CVS? regular rate rhythm, Respiratory lungs clear to auscultation, no respiratory distress, no wheeze, no rhonchi. Gastrointestinal abdomen soft, nontender, bowel sounds audible, no guarding , no rigidity. Extremities no edema. Left elbow swelling and erythema resolved, no tenderness on palpation, good range of motion left elbow, no swelling of olecranon bursa Neuro nonfocal,speech clear. Skin no rash Psych appropriate affect Objective Data Active Medications Acetaminophen (Acetaminophen 325 Mg Tablet) 650 mg PO Q6H PRN PRN Reason: Pain, Mild (Pain Scale 1-3) Last Admin: 11/10/20 22:26 Dose: 650 mg Documented by: ELSA Aripiprazole (Aripiprazole 15 Mg Tablet) 15 mg PO DAILY [facility] Last Admin: 11/15/20 09:16 Dose: 15 mg Documented by: ELSIE Aspirin (Aspirin Enteric Coated 81 Mg Tablet.) 81 mg PO DAILY [facility] Last Admin: 11/15/20 09:16 Dose: 81 mg Documented by: ELSIE Atorvastatin Calcium (Atorvastatin Calcium 80 Mg Tablet) 80 mg PO BEDTIME [facility] Last Admin: 11/14/20 21:00 Dose: 80 mg Documented by: JODI Bupropion HCl (Bupropion Hcl Xl 300 Mg Tab.Er.24h) 300 mg PO DAILY [facility] Last Admin: 11/15/20 09:16 Dose: 300 mg Documented by: ELSIE Dextrose (Dextrose 50 % 25 Gm/50 Ml Vial) 25 gm IVPUSH Q15M PRN; Protocol PRN Reason: per Hypoglycemia Standing Ord. Enoxaparin Sodium (Enoxaparin Sodium 40 Mg/0.4 Ml Syringe) 40 mg SUBCUT Q24H [facility] Last Admin: 11/14/20 12:10 Dose: 40 mg Documented by: GWENDOLYN Gabapentin (Gabapentin 600 Mg Tablet) 600 mg PO TID [facility] Last Admin: 11/15/20 09:16 Dose: 600 mg Documented by: ELSIE Glucose (Glucose Gel 15 Gm Gel..Gram.) 15 gm PO Q15M PRN; Protocol PRN Reason: per Hypoglycemia Standing Ord. Hydroxyzine HCl (Hydroxyzine Hcl 25 Mg Tablet) 25 mg PO BEDTIME [facility] Last Admin: 11/14/20 21:00 Dose: 25 mg Documented by: JODI Cefazolin Sodium/Dextrose (Ancef) 2 gm in 50 mls @ 100 mls/hr IV Q8H [facility] Last Infusion: 11/15/20 10:07 Dose: 0 mls/hr Documented by: ELSIE Insulin Human Lispro (Insulin Lispro 100 Unit/Ml 3 Ml Vial) 0 unit SUBCUT QIDACHS [facility]; Protocol Last Admin: 11/15/20 11:43 Dose: Not Given Documented by: ELSIE Non-Admin Reason: No Insulin Coverage Lisinopril (Lisinopril 10 Mg Tablet) 10 mg PO DAILY [facility]; Protocol Last Admin: 11/15/20 09:16 Dose: 10 mg Documented by: ELSIE Nicotine (Nicotine 21 Mg Patch.Td24) 21 mg TRANSDERMA DAILY [facility] Last Admin: 11/15/20 09:16 Dose: 21 mg Documented by: ELSIE Omeprazole (Omeprazole 20 Mg Capsule.Dr) 20 mg PO DAILY@0630 [facility] Last Admin: 11/15/20 05:17 Dose: 20 mg Documented by: JODI Ondansetron HCl (Ondansetron Hcl 4 Mg/2 Ml Vial) 4 mg IVPUSH Q8H PRN PRN Reason: Nausea and Vomiting Pharmacy Consult (Consult Rx Vancomycin Dosing) 1 each MISCELLANE DAILY PRN PRN Reason: Consult order Prazosin HCl (Prazosin Hcl 1 Mg Capsule) 2 mg PO BEDTIME [facility]; Protocol Last Admin: 11/14/20 20:59 Dose: 2 mg Documented by: JODI Sodium Chloride (0.9 % Sodium Chloride Flush 3 Ml Syringe) 3 ml IVFLUSH QSHIFT [facility] Last Admin: 11/15/20 09:17 Dose: 3 ml Documented by: ELSIE Trazodone HCl (Trazodone Hcl 100 Mg Tablet) 100 mg PO BEDTIME [facility] Last Admin: 11/14/20 20:59 Dose: 100 mg Documented by: JODI Venlafaxine HCl (Venlafaxine Hcl Er 75 Mg Cap.Er.24h) 75 mg PO DAILY [facility] Last Admin: 11/15/20 09:16 Dose: 75 mg Documented by: ELSIE Venlafaxine HCl (Venlafaxine Hcl Er 150 Mg Cap.Er.24h) 150 mg PO DAILY [facility] Last Admin: 11/15/20 09:16 Dose: 150 mg Documented by: ELSIE Vitamin D (Cholecalciferol (Vitamin D3) 25 Mcg Tablet) 50 mcg PO DAILY [facility] Last Admin: 11/15/20 09:16 Dose: 50 mcg Documented by: ELSIE Labs CBC & Chem 7: 11/12/20 04:11 11/15/20 06:50 Labs: Laboratory Results - last 24 hr 11/14/20 11/14/20 11/15/20 15:58 20:00 06:50 Estim Creat Clear Calc 71.4 Estimated GFR 53 POC Glucose 136 H 136 H 11/15/20 11/15/20 07:15 11:00 Estim Creat Clear Calc Estimated GFR POC Glucose 119 H 128 H Microbiology Microbiology Results: Microbiology 11/11/20 16:10 Gram Stain - Final Elbow Aspirate - Aspirate Anaerobic Culture - Preliminary Gross Specimen Examination - Final Fluid Crystals - Final Joint Fluid Culture - Final Staphylococcus aureus Assessment and Plan (1) Tobacco use disorder: Status: Acute (2) Staphylococcus aureus bacteremia: Status: Acute (3) COVID-19: Status: Acute (4) Olecranon bursitis of left elbow: Status: Acute (5) Cellulitis: Status: Acute Assessment and Plan: 50-year-old gentleman with past medical history of diabetes, hypertension, coronary artery disease status post [place] 5 years ago current active smoker presented to [facility] 0 11/15 and diagnosed to have folic current bursitis sent home on NSAIDs and compression therapy return back to ER due to worsening swelling pain and redness of left arm, and noted to have COVID-19 positive. Sepsis due to Left olecranon septic bursitis/cellulitis/staph aureus bacteremia All symptoms of sepsis resolved, leukocytosis trended down, normal lactic acid, s/p I&D of left olecronon bursitis on 11/11/20 small amount of pus drained, incision site well healed Status post IV vancomycin day 6, blood cultures x2 positive for MSSA Patient started on Kefzol 2 g q.8 hours day 2 id recommend total 4 weeks of IV antibiotic Repeat blood culture pending will place PICC line and discharged home with home infusion services Doppler study left arm showed no DVT Echo showed no vegetation COVID-19 infection Patient asymptomatic, cont. isolation , as needed cough medication, history of prior COVID infection. Tobacco use disorder Smokes 1 pack per day, counseling done,cont. nicotine patch, explain high risk for coronary artery disease stroke with continued smoking, will order nicotine patch on discharge Diabetes mellitus blood sugars stable stable BS,on diabetic diet and insulin sliding scale, takes insulin and metformi n at home, will resume home medications upon discharge Coronary artery disease No chest pain continue home medications, aspirin, Lipitor History of depression No acute decompensation continue home medication DVT prophylaxis on Lovenox 40 subQ Code status patient full code Quality Stroke Does the patient have a stroke diagnosis?: No VTE Prior VTE?: No VTE Risk Level:: Medical - moderate - high VTE Device Contraindication: Treatment Not Indicated VTE Drug Contraindication: N/A - Med Ordered
[2020-11-15] MEDS: Enoxaparin Sodium 40 MG/0.4 ML SYRINGE SUBCUT (13:22)
[2020-11-15 16:43] LABS: Glucose, Whole Blood 126 mg/dL (60-115)
[2020-11-15 17:45] LABS: Vancomycin Trough 7.6 mcg/mL (10.0-20.0)
[2020-11-15] MEDS: hydrOXYzine HCL 25 MG TABLET PO (20:05)
[2020-11-15] MEDS: traZODone HCL 100 MG TABLET PO (20:05)
[2020-11-15] MEDS: Prazosin HCL 1 MG CAPSULE 2 MG PO (20:05)
[2020-11-15] MEDS: Atorvastatin Calcium 80 MG TABLET PO (20:05)
[2020-11-15 20:46] LABS: Glucose, Whole Blood 127 mg/dL (60-115)
[2020-11-16] VITALS (9 sets, daily range): BP systolic 97–167; BP diastolic 56–92; PULSE 69–77; RESP 18–20; TEMP 36.1–37; O2SAT 97–99
[2020-11-16] MEDS: ceFAZolin Sodium/Dextrose,Iso 2 GM/50 ML PIGGYBACK IV ×3 (00:59→16:00)
[2020-11-16] MEDS: Omeprazole 20 MG CAPSULE.DR PO (05:42)
[2020-11-16 06:53] LABS: Creatinine Clr Calc Pharmacy 72.4; Estimated Glomerular Filt Rate 54
[2020-11-16 07:17] LABS: Glucose, Whole Blood 91 mg/dL (60-115)
[2020-11-16] MEDS: 0.9 % Sodium Chloride Flush 3 ML SYRINGE IVFLUSH ×3 (08:40→19:55)
[2020-11-16] MEDS: Gabapentin 600 MG TABLET PO ×3 (08:46→19:54)
[2020-11-16] MEDS: Venlafaxine HCl ER 75 MG CAP.ER.24H PO (08:47)
[2020-11-16] MEDS: ARIPiprazole 15 MG TABLET PO (08:47)
[2020-11-16] MEDS: buPROPion HCl XL 300 MG TAB.ER.24H PO (08:47)
[2020-11-16] MEDS: Aspirin Enteric Coated 81 MG TABLET.DR PO (08:47)
[2020-11-16] MEDS: Cholecalciferol (Vitamin D3) 25 MCG TABLET 50 MCG PO (08:47)
[2020-11-16] MEDS: lisinopriL 10 MG TABLET PO (08:47)
[2020-11-16] MEDS: Venlafaxine HCl ER 150 MG CAP.ER.24H PO (08:47)
[2020-11-16] MEDS: Nicotine 21 MG PATCH.TD24 TRANSDERMA (08:47)
[2020-11-16 11:15] LABS: Glucose, Whole Blood 101 mg/dL (60-115)
--- NOTE | 2020-11-16 11:36 | HO.PM.IMPN ---
Subjective Subjective Date of Service: 11/16/20 Interval History: Being followed for a Staph bacteremia and left elbow bursitis, denies fever, denies pain, no acute issues overnight. Review of Systems General no headache, no dizziness, no fever chills.? CVS no chest pain, no palpitation.? Respiratory no cough, no sob.? Gastrointestinal no nausea, no vomiting, no abdominal pain Review of Systems: Yes all other systems are reviewed and are negative Physical Exam Vital Signs: Vital Signs: Last Vital Signs Temp 97 F 11/16/20 11:08 Pulse 69 11/16/20 11:08 Resp 20 11/16/20 11:08 BP 167/92 H 11/16/20 08:47 Pulse Ox 99 11/16/20 11:08 Body Mass Index 28.4 General alert oriented x3,? acute distress.? Neck? supple, no JVD. CVS? regular rate rhythm, Respiratory lungs clear to auscultation, no respiratory distress, no wheeze, no rhonchi. Gastrointestinal abdomen soft, nontender, bowel sounds audible, no guarding , no rigidity. Extremities no edema. Left elbow swelling and erythema resolved, no tenderness on palpation, good range of motion left elbow, no swelling of olecranon bursa Neuro nonfocal,speech clear. Skin no rash Psych appropriate affect Objective Data Active Medications Acetaminophen (Acetaminophen 325 Mg Tablet) 650 mg PO Q6H PRN PRN Reason: Pain, Mild (Pain Scale 1-3) Last Admin: 11/10/20 22:26 Dose: 650 mg Documented by: ELSA Aripiprazole (Aripiprazole 15 Mg Tablet) 15 mg PO DAILY [facility] Last Admin: 11/16/20 08:47 Dose: 15 mg Documented by: JUVE Aspirin (Aspirin Enteric Coated 81 Mg Tablet.) 81 mg PO DAILY [facility] Last Admin: 11/16/20 08:47 Dose: 81 mg Documented by: JUVE Atorvastatin Calcium (Atorvastatin Calcium 80 Mg Tablet) 80 mg PO BEDTIME [facility] Last Admin: 11/15/20 20:05 Dose: 80 mg Documented by: AMBER Bupropion HCl (Bupropion Hcl Xl 300 Mg Tab.Er.24h) 300 mg PO DAILY [facility] Last Admin: 11/16/20 08:47 Dose: 300 mg Documented by: JUVE Dextrose (Dextrose 50 % 25 Gm/50 Ml Vial) 25 gm IVPUSH Q15M PRN; Protocol PRN Reason: per Hypoglycemia Standing Ord. Enoxaparin Sodium (Enoxaparin Sodium 40 Mg/0.4 Ml Syringe) 40 mg SUBCUT Q24H [facility] Last Admin: 11/15/20 13:22 Dose: 40 mg Documented by: ELSIE Gabapentin (Gabapentin 600 Mg Tablet) 600 mg PO TID [facility] Last Admin: 11/16/20 08:46 Dose: 600 mg Documented by: JUVE Glucose (Glucose Gel 15 Gm Gel..Gram.) 15 gm PO Q15M PRN; Protocol PRN Reason: per Hypoglycemia Standing Ord. Hydroxyzine HCl (Hydroxyzine Hcl 25 Mg Tablet) 25 mg PO BEDTIME [facility] Last Admin: 11/15/20 20:05 Dose: 25 mg Documented by: AMBER Cefazolin Sodium/Dextrose (Ancef) 2 gm in 50 mls @ 100 mls/hr IV Q8H [facility] Last Infusion: 11/16/20 09:13 Dose: 0 mls/hr Documented by: JUVE Insulin Human Lispro (Insulin Lispro 100 Unit/Ml 3 Ml Vial) 0 unit SUBCUT QIDACHS [facility]; Protocol Last Admin: 11/16/20 07:19 Dose: Not Given Documented by: JUVE Non-Admin Reason: No Insulin Coverage Comments: poc 91 Lisinopril (Lisinopril 10 Mg Tablet) 10 mg PO DAILY [facility]; Protocol Last Admin: 11/16/20 08:47 Dose: 10 mg Documented by: JUVE Nicotine (Nicotine 21 Mg Patch.Td24) 21 mg TRANSDERMA DAILY [facility] Last Admin: 11/16/20 08:47 Dose: 21 mg Documented by: JUVE Omeprazole (Omeprazole 20 Mg Capsule.) 20 mg PO DAILY@0630 [facility] Last Admin: 11/16/20 05:42 Dose: 20 mg Documented by: AMBER Ondansetron HCl (Ondansetron Hcl 4 Mg/2 Ml Vial) 4 mg IVPUSH Q8H PRN PRN Reason: Nausea and Vomiting Pharmacy Consult (Consult Rx Vancomycin Dosing) 1 each MISCELLANE DAILY PRN PRN Reason: Consult order Prazosin HCl (Prazosin Hcl 1 Mg Capsule) 2 mg PO BEDTIME [facility]; Protocol Last Admin: 11/15/20 20:05 Dose: 2 mg Documented by: AMBER Sodium Chloride (0.9 % Sodium Chloride Flush 3 Ml Syringe) 3 ml IVFLUSH QSHIFT [facility] Last Admin: 11/16/20 08:40 Dose: 3 ml Documented by: JUVE Trazodone HCl (Trazodone Hcl 100 Mg Tablet) 100 mg PO BEDTIME [facility] Last Admin: 11/15/20 20:05 Dose: 100 mg Documented by: AMBER Venlafaxine HCl (Venlafaxine Hcl Er 75 Mg Cap.Er.24h) 75 mg PO DAILY [facility] Last Admin: 11/16/20 08:47 Dose: 75 mg Documented by: JUVE Venlafaxine HCl (Venlafaxine Hcl Er 150 Mg Cap.Er.24h) 150 mg PO DAILY [facility] Last Admin: 11/16/20 08:47 Dose: 150 mg Documented by: JUVE Vitamin D (Cholecalciferol (Vitamin D3) 25 Mcg Tablet) 50 mcg PO DAILY [facility] Last Admin: 11/16/20 08:47 Dose: 50 mcg Documented by: JUVE Labs CBC & Chem 7: 11/12/20 04:11 11/16/20 06:10 Labs: Laboratory Results - last 24 hr 11/15/20 11/15/20 11/15/20 15:45 17:08 19:55 Estim Creat Clear Calc Estimated GFR POC Glucose 126 H 127 H Vancomycin Trough 7.6 L 11/16/20 11/16/20 11/16/20 06:10 07:09 11:08 Estim Creat Clear Calc 72.4 Estimated GFR 54 POC Glucose 91 101 Vancomycin Trough Microbiology Microbiology Results: Microbiology 11/11/20 16:10 Gram Stain - Final Elbow Aspirate - Aspirate Anaerobic Culture - Final Gross Specimen Examination - Final Fluid Crystals - Final Joint Fluid Culture - Final Staphylococcus aureus 11/14/20 13:33 Blood Culture - Preliminary Blood - Venous No growth after 24 hours. 11/14/20 13:33 Blood Culture - Preliminary Blood - Venous No growth after 24 hours. Assessment and Plan (1) Cellulitis: Status: Acute (2) Olecranon bursitis of left elbow: Status: Acute (3) Tobacco use disorder: Status: Acute (4) Staphylococcus aureus bacteremia: Status: Acute Assessment and Plan: 50-year-old gentleman with past medical history of diabetes, hypertension, coronary artery disease status post [place] 5 years ago current active smoker presented to [facility] 0 11/15 and diagnosed to have folic current bursitis sent home on NSAIDs and compression therapy return back to ER due to worsening swelling pain and redness of left arm, and noted to have COVID-19 positive. Sepsis due to Left olecranon septic bursitis/cellulitis/staph aureus bacteremia All symptoms of sepsis resolved, leukocytosis trended down, normal lactic acid, s/p I&D of left olecronon bursitis on 11/11/20 small amount of pus drained, incision site well healed Status post IV vancomycin day 6, blood cultures x2 positive for MSSA repeat blood cultures negative Will place PICC line and discharge patient home on 2 g of Kefzol Q 8 hours for total 4 weeks day 05/15 days Doppler study left arm showed no DVT Echo showed no vegetation Mild elevation in creatinine improved COVID-19 infection Patient asymptomatic, cont. isolation , as needed cough medication, history of prior COVID infection. Tobacco use disorder Smokes 1 pack per day, counseling done,cont. nicotine patch, explain high risk for coronary artery disease stroke with continued smoking, will order nicotine patch on discharge Diabetes mellitus blood sugars stable stable BS,on diabetic diet and insulin sliding scale, takes insulin and metformin at home, will lower dose of home medications upon discharge, will check hemoglobin A1c Coronary artery disease No chest pain continue home medications, aspirin, Lipitor History of depression No acute decompensation continue home medication DVT prophylaxis on Lovenox 40 subQ Code status patient? full code Quality Stroke Does the patient have a stroke diagnosis?: No VTE Prior VTE?: No VTE Risk Level:: Medical - moderate - high VTE Device Contraindication: Treatment Not Indicated VTE Drug Contraindication: N/A - Med Ordered
[2020-11-16] MEDS: Enoxaparin Sodium 40 MG/0.4 ML SYRINGE SUBCUT (12:22)
--- NOTE | 2020-11-16 13:39 | MHC.CM.PN ---
Addendum entered by Elizabeth Horne 11/16/20 15:02: The patient has not received his PICC line today. Per RN IR waiting on . Original Note: Male 50 DX Covid+ Bursitis septic olecranon. DP tomorrow discharge to home with IV ABX, Kefzol 2GM q8H. [facility] is the Home infusion Co. They will provide the Medication, supplies and education. [facility] will provide home care services. They will provide education for infusion therapy. Dressing changes will be managed by the SN in the home. He will arrange for private transportation. CM will follow.
[2020-11-16 15:52] LABS: Glucose, Whole Blood 111 mg/dL (60-115)
[2020-11-16 19:44] LABS: Glucose, Whole Blood 123 mg/dL (60-115)
[2020-11-16] MEDS: hydrOXYzine HCL 25 MG TABLET PO (19:53)
[2020-11-16] MEDS: Prazosin HCL 1 MG CAPSULE 2 MG PO (19:54)
[2020-11-16] MEDS: Atorvastatin Calcium 80 MG TABLET PO (19:54)
[2020-11-16] MEDS: traZODone HCL 100 MG TABLET PO (19:55)
[2020-11-17] VITALS (8 sets, daily range): BP systolic 119–157; BP diastolic 74–94; PULSE 69–75; RESP 17–18; TEMP 36.2–37.2; O2SAT 94–99
[2020-11-17] MEDS: ceFAZolin Sodium/Dextrose,Iso 2 GM/50 ML PIGGYBACK IV ×3 (01:43→16:57)
[2020-11-17] MEDS: Omeprazole 20 MG CAPSULE.DR PO (05:47)
--- NOTE | 2020-11-17 08:50 | MHC.CM.PN ---
Addendum entered by Elizabeth Horne 11/17/20 13:22: Patient receiving Line for LT ABX now. Will send documentation of Line to PA as soon as it is available. Notified PA, [facility]. Original Note: Male 50 DX Bursitis sepsis. PICC line was not inserted yesterday. Final cultures are still pending. PER RN final Cultures and PICC line insertion are anticipated to be completed this AM. [facility] Co has been updated this AM.
[2020-11-17] MEDS: ARIPiprazole 15 MG TABLET PO (09:53)
[2020-11-17] MEDS: Aspirin Enteric Coated 81 MG TABLET.DR PO (09:53)
[2020-11-17] MEDS: 0.9 % Sodium Chloride Flush 3 ML SYRINGE IVFLUSH ×3 (09:53→20:37)
[2020-11-17] MEDS: Cholecalciferol (Vitamin D3) 25 MCG TABLET 50 MCG PO (09:54)
[2020-11-17] MEDS: Venlafaxine HCl ER 75 MG CAP.ER.24H PO (09:54)
[2020-11-17] MEDS: buPROPion HCl XL 300 MG TAB.ER.24H PO (09:54)
[2020-11-17] MEDS: Gabapentin 600 MG TABLET PO ×3 (09:54→20:37)
[2020-11-17] MEDS: Venlafaxine HCl ER 150 MG CAP.ER.24H PO (09:54)
[2020-11-17] MEDS: Nicotine 21 MG PATCH.TD24 TRANSDERMA (09:55)
[2020-11-17 11:14] LABS: Glucose, Whole Blood 94 mg/dL (60-115)
[2020-11-17] MEDS: Enoxaparin Sodium 40 MG/0.4 ML SYRINGE SUBCUT (11:55)
--- NOTE | 2020-11-17 14:24 | P.PICC_ITS ---
PICC Line Insertion [facility] Diagnosis: L ELBOW BURSITIS Indication: HALF-WAY IV ANTIBIOTICS Pertinent Labs: REVIEWED Technique: Following informed consent including risks, benefits and alternatives and using sterile technique including cap and mask, sterile gown, glove and drape, the RIGHT arm was prepped and draped in the usual sterile fashion of full barrier technique with CHG. Following completion of [facility] Protocol the skin and soft tissues were anesthetized with 1% Lidocaine plain. Using ultrasound guidance, BASILIC vein access was obtained IN SINGLE ATTEMPT BY THIS RN. Over an 0.018 wire through peel-away sheath, a 4-BANGLADESHI, PASV, SINGLE LUMEN PICC line was positioned. Catheter length is 38 CM internal length, 2 CM external length, for a total trimmed length of 40 CM. The procedure was performed in [place] [id number]. Tip verification was performed by Patricia Gooden with Ravi 3CG. Tip located in SVC. Ultrasound was used to document vein patency and for needle entry. A formal ultrasound picture and cardiac rhythm strip was recorded. [facility] has released the line for use and it is currently dressed with a StatLock, Tegaderm, and CHG disc. Verification has been performed for blood return and line patency. Arm Circumference: 31.5 CM Equipment: [employer] POWERPICC SOLO Catheter Type: SINGLE LUMEN, 4-BANGLADESHI, PASV Lot #: [id number]
--- NOTE | 2020-11-17 16:26 | HO.PM.IMPN ---
Subjective Subjective Date of Service: 11/17/20 Interval History: Being followed for MSSA bacteremia, denies redness swelling of left arm denies pain, no fever no chills, denies shortness of breath. No acute issues overnight. Review of Systems General no headache, no dizziness, no fever chills.? CVS no chest pain, no palpitation.? Respiratory no cough, no sob.? Gastrointestinal no nausea, no vomiting, no abdominal pain Review of Systems: Yes all other systems are reviewed and are negative Physical Exam Vital Signs: Vital Signs: Last Vital Signs Temp 98.6 F 11/17/20 15:21 Pulse 70 11/17/20 15:21 Resp 17 11/17/20 15:21 BP 157/94 H 11/17/20 11:46 Pulse Ox 99 11/17/20 15:21 Body Mass Index 28.4 General alert oriented x3,? acute distress.? Neck? supple, no JVD. CVS? regular rate rhythm, Respiratory lungs clear to auscultation, no respiratory distress, no wheeze, no rhonchi. Gastrointestinal abdomen soft, nontender, bowel sounds audible, no guarding , no rigidity. Extremities no edema. Left elbow swelling and erythema resolved, no tenderness on palpation, good range of motion left elbow, no swelling of olecranon bursa Neuro nonfocal,speech clear. Skin no rash Psych appropriate affect Objective Data Active Medications Acetaminophen (Acetaminophen 325 Mg Tablet) 650 mg PO Q6H PRN PRN Reason: Pain, Mild (Pain Scale 1-3) Last Admin: 11/10/20 22:26 Dose: 650 mg Documented by: ELSA Aripiprazole (Aripiprazole 15 Mg Tablet) 15 mg PO DAILY [facility] Last Admin: 11/17/20 09:53 Dose: 15 mg Documented by: MICHELLE Aspirin (Aspirin Enteric Coated 81 Mg Tablet.) 81 mg PO DAILY [facility] Last Admin: 11/17/20 09:53 Dose: 81 mg Documented by: MICHELLE Atorvastatin Calcium (Atorvastatin Calcium 80 Mg Tablet) 80 mg PO BEDTIME [facility] Last Admin: 11/16/20 19:54 Dose: 80 mg Documented by: MILLY Bupropion HCl (Bupropion Hcl Xl 300 Mg Tab.Er.24h) 300 mg PO DAILY [facility] Last Admin: 11/17/20 09:54 Dose: 300 mg Documented by: MICHELLE Dextrose (Dextrose 50 % 25 Gm/50 Ml Vial) 25 gm IVPUSH Q15M PRN; Protocol PRN Reason: per Hypoglycemia Standing Ord. Enoxaparin Sodium (Enoxaparin Sodium 40 Mg/0.4 Ml Syringe) 40 mg SUBCUT Q24H [facility] Last Admin: 11/17/20 11:55 Dose: 40 mg Documented by: JANICE Gabapentin (Gabapentin 600 Mg Tablet) 600 mg PO TID [facility] Last Admin: 11/17/20 14:30 Dose: 600 mg Documented by: MICHELLE Glucose (Glucose Gel 15 Gm Gel..Gram.) 15 gm PO Q15M PRN; Protocol PRN Reason: per Hypoglycemia Standing Ord. Hydroxyzine HCl (Hydroxyzine Hcl 25 Mg Tablet) 25 mg PO BEDTIME [facility] Last Admin: 11/16/20 19:53 Dose: 25 mg Documented by: MILLY Cefazolin Sodium/Dextrose (Ancef) 2 gm in 50 mls @ 100 mls/hr IV Q8H [facility] Last Infusion: 11/17/20 11:58 Dose: 0 mls/hr Documented by: JANICE Insulin Human Lispro (Insulin Lispro 100 Unit/Ml 3 Ml Vial) 0 unit SUBCUT QIDACHS [facility]; Protocol Last Admin: 11/17/20 11:48 Dose: Not Given Documented by: MICHELLE Non-Admin Reason: No Insulin Coverage Lisinopril (Lisinopril 10 Mg Tablet) 10 mg PO DAILY [facility]; Protocol Last Admin: 11/16/20 08:47 Dose: 10 mg Documented by: JUVE Nicotine (Nicotine 21 Mg Patch.Td24) 21 mg TRANSDERMA DAILY [facility] Last Admin: 11/17/20 09:55 Dose: 21 mg Documented by: MICHELLE Omeprazole (Omeprazole 20 Mg Capsule.Dr) 20 mg PO DAILY@0630 [facility] Last Admin: 11/17/20 05:47 Dose: 20 mg Documented by: MILLY Ondansetron HCl (Ondansetron Hcl 4 Mg/2 Ml Vial) 4 mg IVPUSH Q8H PRN PRN Reason: Nausea and Vomiting Pharmacy Consult (Consult Rx Vancomycin Dosing) 1 each MISCELLANE DAILY PRN PRN Reason: Consult order Prazosin HCl (Prazosin Hcl 1 Mg Capsule) 2 mg PO BEDTIME [facility]; Protocol Last Admin: 11/16/20 19:54 Dose: 2 mg Documented by: MILLY Sodium Chloride (0.9 % Sodium Chloride Flush 3 Ml Syringe) 3 ml IVFLUSH QSHIFT [facility] Last Admin: 11/17/20 14:30 Dose: 3 ml Documented by: MICHELLE Trazodone HCl (Trazodone Hcl 100 Mg Tablet) 100 mg PO BEDTIME [facility] Last Admin: 11/16/20 19:55 Dose: 100 mg Documented by: MILLY Venlafaxine HCl (Venlafaxine Hcl Er 75 Mg Cap.Er.24h) 75 mg PO DAILY [facility] Last Admin: 11/17/20 09:54 Dose: 75 mg Documented by: MICHELLE Venlafaxine HCl (Venlafaxine Hcl Er 150 Mg Cap.Er.24h) 150 mg PO DAILY [facility] Last Admin: 11/17/20 09:54 Dose: 150 mg Documented by: MICHELLE Vitamin D (Cholecalciferol (Vitamin D3) 25 Mcg Tablet) 50 mcg PO DAILY [facility] Last Admin: 11/17/20 09:54 Dose: 50 mcg Documented by: MICHELLE Labs CBC & Chem 7: 11/12/20 04:11 11/16/20 06:10 Labs: Laboratory Results - last 24 hr 11/16/20 11/17/20 19:38 11:10 POC Glucose 123 H 94 Microbiology Microbiology Results: Microbiology 11/14/20 13:33 Blood Culture - Preliminary Blood - Venous No growth after 48 hours. 11/14/20 13:33 Blood Culture - Preliminary Blood - Venous No growth after 48 hours. Assessment and Plan (1) Olecranon bursitis of left elbow: Status: Acute (2) Cellulitis: Status: Acute (3) Tobacco use disorder: Status: Acute (4) Staphylococcus aureus bacteremia: Status: Acute (5) COVID-19: Status: Acute (6) High cholesterol: Status: Acute Assessment and Plan: 50-year-old gentleman with past medical history of diabetes, hypertension, coronary artery disease status post [place] 5 years ago current active smoker presented to [facility] 0 11/15 and diagnosed to have folic current bursitis sent home on NSAIDs and compression therapy return back to ER due to worsening swelling pain and redness of left arm, and noted to have COVID-19 positive. Sepsis due to Left olecranon septic bursitis/cellulitis/staph aureus bacteremia Denies fever, no chills, no left arm pain symptoms of sepsis resolved, leukocytosis trended down, normal lactic acid, s/p I&D of left olecronon bursitis on 11/11/20 small amount of pus drained, incision site well healed Status post IV vancomycin day 6, blood cultures x2 positive for MSSA repeat blood cultures negative Order PICC line and discharge patient home on 2 g of Kefzol Q 8 hours for total 4 weeks day 06/15 days ending 12/08 Doppler study left arm showed no DVT Echo showed no vegetation Mild elevation in creatinine improved COVID-19 infection Patient asymptomatic, cont. isolation , as needed cough medication, history of prior COVID infection. Tobacco use disorder Smokes 1 pack per day, counseling done,cont. nicotine patch, explain high risk for coronary artery disease stroke with continued smoking, will order nicotine patch on discharge Diabetes mellitus blood sugars stable stable low normal ,cont. diabetic diet and insulin sliding scale, takes insulin and metformin at home, will lower dose of home medications upon discharge, follow hemoglobin A1c Coronary artery disease No chest pain continue home medications, aspirin, Lipitor History of depression No acute decompensation continue home medication DVT prophylaxis on Lovenox 40 subQ Code status patient? full code Quality Stroke Does the patient have a stroke diagnosis?: No VTE Prior VTE?: No VTE Risk Level:: Medical - moderate - high VTE Device Contraindication: Treatment Not Indicated VTE Drug Contraindication: N/A - Med Ordered
[2020-11-17 16:32] LABS: Glucose, Whole Blood 95 mg/dL (60-115)
[2020-11-17] MEDS: hydrOXYzine HCL 25 MG TABLET PO (20:36)
[2020-11-17] MEDS: traZODone HCL 100 MG TABLET PO (20:36)
[2020-11-17] MEDS: Atorvastatin Calcium 80 MG TABLET PO (20:36)
[2020-11-17] MEDS: Prazosin HCL 1 MG CAPSULE 2 MG PO (20:36)
[2020-11-17 20:59] LABS: Glucose, Whole Blood 102 mg/dL (60-115)
[2020-11-18] MEDS: ceFAZolin Sodium/Dextrose,Iso 2 GM/50 ML PIGGYBACK IV ×2 (00:48→09:21)
[2020-11-18 04:00] VITALS: BP 128/84; PULSE 102; RESP 20; TEMP 36.7; O2SAT 99
[2020-11-18] MEDS: Omeprazole 20 MG CAPSULE.DR PO (06:02)
[2020-11-18 07:16] LABS: MANUAL DIFF FLAG NO
[2020-11-18 07:27] LABS: Basophils Absolute Auto 0.1 X10*3/uL (0.0-0.2); Eosinophils Absolute Auto 0.4 X10*3/uL (0.0-0.4); Eosinophils Percent Auto 3.6 % (0-4); Hematocrit 42.2 % (42-52); Hemoglobin 14.3 g/dl (14.0-18.0); Imm Gran Abs Auto 0.06 X10*3/uL (0.00-0.03); Imm Gran Pct Auto 0.5 % (0.0-0.4); Lymphocytes Absolute Auto 3.5 X10*3/uL (1.2-4.9); Lymphocytes Percent Auto 31.6 % (20-40); Mean Corpuscular HGB Conc 33.9 g/dl (31.0-36.0); Mean Corpuscular Hemoglobin 32.1 pg (27.0-33.0); Mean Corpuscular Volume 94.6 fL (80-98); Mean Platelet Volume 10.7 fL (9.4-12.4); Monocytes Absolute Auto 0.8 X10*3/uL (0.1-1.2); Monocytes Percent Auto 7.6 % (2-11); Neutrophils Absolute Auto 6.1 X10*3/uL (2.0-8.3); Neutrophils Percent Auto 55.7 % (45-73); Platelet Count 352 X10*3/uL (160-400); Red Blood Count 4.46 X10*6/uL (4.60-5.80); Red Cell Distribution Width 12.4 % (11.0-16.0)
[2020-11-18 07:35] LABS: Estimated Average Glucose 166 mg/dL; Hemoglobin A1c % 7.4 %
[2020-11-18 07:58] LABS: Glucose, Whole Blood 123 mg/dL (60-115)
[2020-11-18 08:00] VITALS: BP 134/84; PULSE 78; RESP 20; TEMP 36.2; O2SAT 98
[2020-11-18] MEDS: Gabapentin 600 MG TABLET PO (09:21)
[2020-11-18] MEDS: ARIPiprazole 15 MG TABLET PO (09:21)
[2020-11-18] MEDS: Venlafaxine HCl ER 75 MG CAP.ER.24H PO (09:21)
[2020-11-18] MEDS: Cholecalciferol (Vitamin D3) 25 MCG TABLET 50 MCG PO (09:21)
[2020-11-18] MEDS: buPROPion HCl XL 300 MG TAB.ER.24H PO (09:21)
[2020-11-18] MEDS: Aspirin Enteric Coated 81 MG TABLET.DR PO (09:21)
[2020-11-18] MEDS: Venlafaxine HCl ER 150 MG CAP.ER.24H PO (09:21)
[2020-11-18] MEDS: 0.9 % Sodium Chloride Flush 3 ML SYRINGE IVFLUSH (09:22)
[2020-11-18] MEDS: Nicotine 21 MG PATCH.TD24 TRANSDERMA (09:28)
--- NOTE | 2020-11-18 09:32 | MHC.CM.PN ---
IMM 11/18/20 MALE 50 DX BURSITIS SEPSIS. He is discharged to home with IV ABX TID. [facility] is the home infusion Co. They will deliver @2pm meds and supplies. Patients next dose is due @5pm. [facility] g[facility] with provide home care services. They have been provided with delivery infomation, including time. They have been instructed that next dose is due @5PM. Both Agencies have been provided with all discharge information. The Pt has arranged for private transportation to his home.
[2020-11-18 11:10] LABS: Glucose, Whole Blood 117 mg/dL (60-115)
--- NOTE | 2020-11-18 12:25 | W.MHC.F2F ---
Service Date Service Date: 11/18/20 Reasons for Services Homebound: Leaving the home is medically contraindicated at this time without the asist of a device and/or another person due th the listed conditions above and below. Homebound supporting statement: Homebound due to recent hospitalization requiring IIV antibiotics therapy via PICC line, dressing changes, covid infect. Home bound due SOB making it difficult to leave home safely and therfore needs the assitance of another person. 12:21 PM 30 days left Certification: Based on the above findings, I certify that this patient is confined to the home and needs intermittent prison care, physical therapy and/or speech therapy, or continues to need occupational therapy. The patient is under my care, and I have initiated the establishment of the plan of care. The patient will be followed by a physician who will periodically review the plan of care.
--- NOTE | 2020-11-18 16:16 | PM.DS ---
DS: Providers Provider Date of Service: 11/18/20 <Mike Bowers MD - Last Filed: 11/23/20 17:24> Date of admission: 11/09/20 11:16 <Mike Bowers MD - Last Filed: 11/23/20 17:24> Primary care physician: Cheri Baird <Mike Bowers MD - Last Filed: 11/23/20 17:24> Consults: 11/10/20 12:19 Consult to Infectious Diseases Stat Consulting Provider: Nona Culp Reason for consultation: bacteremia septic bursitis Has provider been notified: No 11/10/20 17:18 Consult to Orthopedics Routine Consulting Provider: Jones Cheung Reason for consultation: septic olecranom bursitis Has provider been notified: No <Mike Bowers MD - Last Filed: 11/23/20 17:24> DS: Diagnosis Discharge Diagnosis (1) Cellulitis: Status: Acute <Mike Bowers MD - Last Filed: 11/23/20 17:24> (2) Olecranon bursitis of left elbow: Status: Acute <Mike Bowers MD - Last Filed: 11/23/20 17:24> (3) Tobacco use disorder: Status: Acute <Mike Bowers MD - Last Filed: 11/23/20 17:24> (4) Staphylococcus aureus bacteremia: Status: Acute <Mike Bowers MD - Last Filed: 11/23/20 17:24> DS: Summary Hospital Course Hospital Course: Chief Complaint: Left elbow pain and swelling 50-year-old gentleman with past medical history significant for diabetes mellitus, hyperlipidemia, history of myocardial infarction was seen at [facility] on 11/07 for left elbow pain and swelling and was diagnosed to have all agreed and bursitis and was sent home on NSAIDs and compression, however patient returned to [facility] due to worsening redness swelling and discomfort despite using NSAIDs patient also complained of chills but no fever he denies any elbow injury, no insect bite denies any open wounds, in the emergency room patient noted to have low-grade fever, tachycardia and elevated WBC count, a left upper extremity duplex study showed no evidence of DVT patient treated with IV antibiotic and now being admitted for continued monitoring and treatment. Hospital course 50-year-old gentleman with past medical history of diabetes, hypertension, coronary artery disease status post [place] 5 years ago current active smoker presented to [facility] 0 11/15 and diagnosed to have olecranon bursitis sent home on NSAIDs and compression therapy return back to ER due to worsening swelling pain and redness of left arm, and noted to have COVID-19 positive, patient admitted to isolation unit with a diagnosis of Sepsis due to Left olecranon septic bursitis/cellulitis, patient placed on vancomycin and Zosyn, Doppler study left arm showed no DVT, subsequently blood cultures came back positive for MSSA therefore patient placed on IV Kefzol 2 g q.8 hours, echocardiogram showed no vegetation, all symptoms of sepsis has resolved normal lactic acid, PICC line has been placed and patient is being discharged home on Kefzol 2 g Q 8 hours In regard to COVID-19 infection, patient remained asymptomatic was treated with supportive care in isolation Tobacco use disorder patient placed on nicotine patch and wishes to continue patch upon discharge Diabetes mellitus will discharge patient on home medication except will lower dose of Lantus since noted to have few low blood sugars Coronary artery disease continue home medication aspirin and Lipitor History of depression No acute decompensation continue home medications. Most of this summery was prepared by Dr. Bowers, I saw the patient on 11/18 and there is no interim change. <Mike Bowers MD - Last Filed: 11/23/20 17:24> Time Spent with Patient Time attestation: Total time spent providing and/or coordinating discharge services: <Mike Bowers MD - Last Filed: 11/23/20 17:24> Discharge coordination time: Greater than 30 minutes <Dudley Cary MD - Last Filed: 11/18/20 10:06> Quality: Stroke Does the patient have a stroke diagnosis?: No <Dudley Cary MD - Last Filed: 11/18/20 10:06> Physical Exam Vital Signs: Vital Signs: Last Vital Signs Temp 98.6 F 11/17/20 15:21 Pulse 70 11/17/20 15:21 Resp 17 11/17/20 15:21 BP 157/94 H 11/17/20 11:46 Pulse Ox 99 11/17/20 15:21 Body Mass Index 28.4 <Mike Bowers MD - Last Filed: 11/23/20 17:24> Vital Signs: Selected Entries 11/18/20 08:00 Temperature 97.1 F Pulse Rate 78 Respiratory Rate 20 Blood Pressure 134/84 Pulse Oximetry 98 Body Mass Index 28.4 <Dudley Cary MD - Last Filed: 11/18/20 10:06> General alert orie nted x3,? acute di stress.? Neck? sup ple, no JVD. CVS? regular rate rhyth m, Respiratory jessie gs clear to auscul tation, no respira tory distress, no wheeze, no rhonchi . Gastrointestinal abdomen soft, non tender, bowel soun ds audible, no gua rding , no rigidit y. Extremities no edema. Left elbow swelling and eryth viraj resolved, no t enderness on palpa tion, good range o f motion left elbo w, no swelling of olecranon bursa Ne uro nonfocal,speec h clear. Skin no r gelacio Psych appropri ate affect <Mike Bowers MD - Last Filed: 11/23/20 17:24> DS: Data Data Completed and Pending Completed studies during hospitalization [Text1]: Procedures Introduction of Other Thrombolytic into Peripheral Vein, Percutaneous Approach (09/26/20) <Mike Bowers MD - Last Filed: 11/23/20 17:24> Labs on day of discharge: Laboratory Results - last 24 hr 11/16/20 11/17/20 19:38 11:10 POC Glucose 123 H 94 Preliminary micro results at discharge 11/14/20 13:33 Blood Culture - Preliminary Blood - Venous No growth after 48 hours. 11/14/20 13:33 Blood Culture - Preliminary Blood - Venous No growth after 48 hours. <Mike Bowers MD - Last Filed: 11/23/20 17:24> Discharge Plan Discharge Anticipated Discharge Date/Time: 11/18/20 10:03 <Mike Bowers MD - Last Filed: 11/23/20 17:24> Patient Disposition: Home Health Service <Mike Bowers MD - Last Filed: 11/23/20 17:24> Discharge Diagnosis: Staph aureus bacteremia Left olecranon septic bursitis <Mike Bowers MD - Last Filed: 11/23/20 17:24> Staph aureus bacteremia Left olecranon septic bursitis <Dudley Cary MD - Last Filed: 11/18/20 10:06> Referrals: [facility] [Other] - 1 Week (Home infusion company will provide medication and supplies.) [facility] [Outside] - 1 Week Cheri Baird [Primary Care Provider] - 1 Week <Mike Bwoers MD - Last Filed: 11/23/20 17:24> Discharge Medications: New nicotine 21 mg/24 hr Patch 24 Hour 21 mg transdermal DAILY Qty: 28 RF: 0 cefazolin in dextrose (iso-os) 2 gram/50 mL Piggyback 50 ml IV Q8H 26 Days Qty: 78 RF: 0 lisinopril 5 mg tablet 5 mg PO DAILY Qty: 30 RF: 0 Continued insulin aspart U-100 [Novolog Flexpen U-100 Insulin] 100 unit/mL (3 mL) insulin pen 15 unit subcut TID Qty: 15 RF: 3 aspirin 81 mg tablet,delayed release (DR/EC) 81 mg PO DAILY Qty: 90 RF: 0 atorvastatin [Lipitor] 80 mg tablet 80 mg PO BEDTIME Qty: 30 RF: 0 gabapentin 600 mg tablet 1 tab PO TID RF: 0 nitroglycerin 0.3 mg tablet, sublingual 1 tab sublingual USEASDIRECTD RF: 0 metformin 500 mg tablet extended release 24 hr 2 tab PO BID RF: 0 hydroxyzine pamoate 25 mg capsule 1 cap PO BEDTIME RF: 0 venlafaxine 75 mg Capsule,Extended Release 24hr 75 mg PO DAILY RF: 0 prazosin 2 mg capsule 1 cap PO BEDTIME RF: 0 bupropion HCl 300 mg tablet extended release 24 hr 300 mg PO DAILY RF: 0 aripiprazole 15 mg tablet 15 mg PO DAILY RF: 0 omeprazole 20 mg capsule,delayed release(DR/EC) 20 mg PO DAILY RF: 0 trazodone 100 mg tablet 100 mg PO BEDTIME RF: 0 venlafaxine 150 mg capsule,extended release 24hr 150 mg PO DAILY RF: 0 (DME) pen needle, diabetic 32 gauge x 5/32 needle See Rx Instructions ea .ROUTE .MEDSUPPLY Qty: 50 RF: 0 (DME) lancets 33 gauge misc See Rx Instructions ea Not Applicable BID Qty: 100 RF: 0 (DME) FreeStyle Lite Strips Strip See Rx Instructions .ROUTE .MEDSUPPLY Qty: 150 RF: 11 (DME) lancets [TRUEplus Lancets] 33 gauge misc See Rx Instructions .ROUTE .MEDSUPPLY Qty: 200 RF: 11 cholecalciferol (vitamin D3) 50 mcg (2,000 unit) capsule 50 mcg PO QAM RF: 0 Citrucel 500 mg tablet 500 mg PO TID Qty: 90 RF: 2 Trulicity 1.5 mg/0.5 mL pen injector 1.5 mg subcut QWEEK 28 Days Qty: 2 RF: 3 Changed insulin degludec 100 unit/mL (3 mL) insulin pen 40 unit subcut QPM 30 Days Qty: 30 RF: 1 Discontinued naproxen [Naprosyn] 500 mg tablet 500 mg PO BID Qty: 20 RF: 0 No Action ondansetron 4 mg tablet,disintegrating 4 mg PO Q6-8H PRN (Reason: nausea and vomiting) Qty: 15 RF: 0 sucralfate 1 gram tablet 1 g PO TID Qty: 90 RF: 0 <Mike Bowers MD - Last Filed: 11/23/20 17:24> Discharge Orders: Discharge Order (Routine); Ordered 11/16/20 Ordered By: Mike Bowers <Mike Bowers MD - Last Filed: 11/23/20 17:24> Diet: diabetic diet <Mike Bowers MD - Last Filed: 11/23/20 17:24> diabetic diet <Dudley Cary MD - Last Filed: 11/18/20 10:06> Activity on Discharge: As tolerated <Mike Bowers MD - Last Filed: 11/23/20 17:24> As tolerated <Dudley Cary MD - Last Filed: 11/18/20 10:06> Stand Alone Forms: Patient Portal Discharge page <Mike Bowers MD - Last Filed: 11/23/20 17:24> Care Plan Goals: MS as a bacteremia/cellulitis take IV antibiotic end date 12/08 <Mike Bowers MD - Last Filed: 11/23/20 17:24> Health Concerns: Diabetes mellitus follow blood sugar closely and adjust dose of home medication, continue all home medications <Mike Bowers MD - Last Filed: 11/23/20 17:24> Plan of Treatment: Outpatient follow-up with primary care physician <Mike Bowers MD - Last Filed: 11/23/20 17:24> Assessment: as above <Mike Bowers MD - Last Filed: 11/23/20 17:24> Discharge Date/Time: 11/18/20 10:53 <Mike Bowers MD - Last Filed: 11/23/20 17:24>
== END 2020-11-18 10:53 | disposition home health service (06) | DRG 871 ==
LOC: HO.ED 10:13 → HO.EDOVER 12:02 → HO.IMC 13:24
PROVIDERS: Admitting Provider Hospitalist; Emergency Provider Emergency Medicine; PCP Nurse Practitioner Family; Visit Provider Internal Medicine
DX: A41.01 Sepsis due to Methicillin susceptible Staphylococcus aureus (principal); U07.1 COVID-19; L03.114 Cellulitis of left upper limb; M70.22 Olecranon bursitis, left elbow; F17.210 Nicotine dependence, cigarettes, uncomplicated; Z71.6 Tobacco abuse counseling; D72.829 Elevated white blood cell count, unspecified; I25.10 Atherosclerotic heart disease of native coronary artery without angina pectoris; I25.2 Old myocardial infarction; E11.9 Type 2 diabetes mellitus without complications; E78.5 Hyperlipidemia, unspecified; Z79.82 Long term (current) use of aspirin; Z79.4 Long term (current) use of insulin; Z79.899 Other long term (current) drug therapy
CPT/HCPCS: 36415; 36573; 80048; 80076; 80202; 82565; 82947; 83036; 83605; 83735; 85025; 87040; 87071; 87073; 87077; 87147; 87186; 87205; 87635; 89060; 93308; 93971; 96361; 96365; 96375; 99284; 99285; C1751; J0690; J1650; J2270; J2405; J2543; J3370

== ENCOUNTER 2020-11-21 19:04 | Emergency (ER) | payer OTHER, SELFPAY ==
[2020-11-21] VITALS (8 sets, daily range): BP systolic 190–224; BP diastolic 86–113; PULSE 76–107; RESP 16–20; TEMP 36.3–37.3; O2SAT 96–100; BMI 24.4
--- NOTE | ~2020-11-21 | CT_ITS ---
EXAMINATION: CT ABDOMEN AND PELVIS WITHOUT CONTRAST CLINICAL INFORMATION: Upper abdominal pain of questionable etiology. COMPARISON: 01/04/2017 TECHNIQUE: Multidetector volumetric imaging was performed from the superior aspect of the liver through the pubic symphysis. Sagittal and coronal reformatted images were obtained on the technologist's workstation. This CT examination was performed using dose optimization techniques as appropriate, variously including the following: *Automated exposure control *Adjustment of mA and/or kV according to patient size (this includes techniques or standardized protocols for targeted exams where dose is matched to indication/reason for exam; i.e. extremities or head) *Use of iterative reconstruction technique DLP: 609 mGy-cm FINDINGS: Motion limited evaluation. LUNG BASES: The visualized lung bases are unremarkable. LIVER, GALLBLADDER, AND BILIARY TREE: The liver is normal in size, shape, and attenuation. No focal hepatic lesion or biliary ductal dilatation is present. The gallbladder is unremarkable with no evidence of radiopaque gallstones, gallbladder wall thickening, or obvious pericholecystic inflammatory changes. PANCREAS: Unremarkable. SPLEEN: Unremarkable. ADRENAL GLANDS: Unremarkable. KIDNEYS AND URETERS: The kidneys are normal in size, shape, and attenuation. No hydronephrosis or hydroureter. 0.3 cm left lower pole renal calculus is 9 cm from the posterior axillary line. BLADDER: Unremarkable. GASTROINTESTINAL TRACT: The stomach is unremarkable. Normal caliber small bowel. No obstruction. No colonic wall thickening or inflammatory change. No free air or free fluid. The appendix is not seen. No inflammatory changes in the region of the cecum to suggest appendicitis. ABDOMINAL WALL: No significant hernia is appreciated. LYMPH NODES: Normal. VASCULAR: Normal caliber aorta with mild atherosclerotic calcification. PELVIC VISCERA: The prostate and seminal vesicles are unremarkable. OSSEOUS STRUCTURES: No acute or suspicious osseous abnormality. Fusion of the sacroiliac joints. Mild degenerative changes of the spine. CT/CT abdomen pelvis wo con IMPRESSION: No acute findings of the abdomen or pelvis. Nonobstructing 0.3 cm left lower pole renal calculus. Fused sacroiliac joints.
--- NOTE | 2020-11-21 20:04 | ED_ITS ---
HPI - Nausea/Vomiting/Diarrhea General Chief complaint: Nausea/Vomiting/Diarrhea Stated complaint: nausea vomiting abd pain Time Seen by Provider: 11/21/20 20:04 Source: patient Mode of arrival: ambulatory Limitations: no limitations History of Present Illness HPI Narrative: Patient with left olecranon septic bursitis with Staph aureus bacteremia diagnosed on 11/09 discharge on 11/18 on cefazolin IV antibiotics co mes here for nausea and vomiting with epigastric pain for last 24 hours no diarrhea no fever or chills vomitus is watery nonbilious no diarrhea Related Data Home Medications Medication Instructions Recorded Confirmed aripiprazole 15 mg tablet 15 mg PO DAILY 07/20/20 11/09/20 bupropion HCl 300 mg 24 hr tablet, 300 mg PO DAILY 07/20/20 11/09/20 extended release lancets 33 gauge #100 ea 07/20/20 11/08/20 omeprazole 20 mg capsule,delayed 20 mg PO DAILY 07/20/20 11/09/20 release pen needle, diabetic 32 gauge x #50 ea 07/20/20 11/08/20 trazodone 100 mg tablet 100 mg PO BEDTIME 07/20/20 11/09/20 venlafaxine 150 mg 150 mg PO DAILY 07/20/20 11/09/20 capsule,extended release 24 hr cholecalciferol (vitamin D3) 50 50 mcg PO QAM 11/03/20 11/09/20 mcg (2,000 unit) capsule gabapentin 600 mg tablet 1 tab PO TID 11/09/20 11/09/20 hydroxyzine pamoate 25 mg capsule 1 cap PO BEDTIME 11/09/20 11/09/20 lisinopril 10 mg tablet 1 tab PO QAM 11/09/20 11/09/20 metformin 500 mg tablet,extended 2 tab PO BID 11/09/20 11/09/20 release 24 hr nitroglycerin 0.3 mg sublingual 1 tab SUBLINGUAL USEASDIRECTD 11/09/20 11/09/20 tablet prazosin 2 mg capsule 1 cap PO BEDTIME 11/09/20 11/09/20 venlafaxine 75 mg capsule,extended 75 mg PO DAILY 11/09/20 11/09/20 release 24 hr Previous Rx's Medication Instructions Recorded blood sugar diagnostic (FreeStyle #150 ea 07/20/20 Lite Strips) lancets 33 gauge (TRUEplus Lancets) #200 ea 07/20/20 insulin aspart U-100 100 unit/mL 15 unit SUBCUT TID #15 ml 08/10/20 (3 mL) subcutaneous pen (Novolog Flexpen U-100 Insulin aspart) dulaglutide 1.5 mg/0.5 mL 1.5 mg SUBCUT QWEEK 28 Days #2 ml 08/30/20 subcutaneous pen injector (Trulicity) aspirin 81 mg tablet,delayed 81 mg PO DAILY #90 tab 09/28/20 release atorvastatin 80 mg tablet (Lipitor) 80 mg PO BEDTIME #30 tab 09/28/20 methylcellulose (laxative) 500 mg 500 mg PO TID #90 tab 11/03/20 tablet (Citrucel) cefazolin 2 gram/50 mL in dextrose 50 ml IV Q8H 26 Days #78 ea 11/16/20 (iso-osmotic) intravenous piggyback insulin degludec 100 unit/mL (3 40 unit SUBCUT QPM 30 Days #30 ml 11/16/20 mL) subcutaneous pen lisinopril 5 mg tablet 5 mg PO DAILY #30 tab 11/16/20 nicotine 21 mg/24 hr daily 21 mg TRANSDERMAL DAILY #28 ea 11/16/20 transdermal patch omeprazole 40 mg capsule,delayed 40 mg PO DAILY #30 cap 11/22/20 release ondansetron 4 mg disintegrating 4 mg PO Q6-8H PRN #15 tab 11/22/20 tablet sucralfate 1 gram tablet 1 g PO TID #90 tab 11/22/20 Allergies Allergy/AdvReac Type Severity Reaction Status Date / Time No Known Allergies Allergy Unverified 11/07/20 21:24 [No Known Allergies*] FOR[facility]LY [facility] Past Medical History Medical History Anxiety Arthritis Depression Diabetes High cholesterol High cholesterol History of myocardial infarction HTN (hypertension) Hyperlipidemia LDL goal <70 Normal echocardiogram Surgical History H/O cardiac catheterization History of appendectomy Hx of foot surgery Family History Family History Mother Alzheimer disease HTN (hypertension) Father Old age Brother Diabetes mellitus Maternal Grandmother Diabetes mellitus Heart disease Social History Social History Household Members: Friend(s) Household Members Other:: Roommate Housing: House Do you presently have visiting nurse or other home services: No Alcohol intake: current Alcohol intake frequency: does not drink Patient Tobacco Use Status: Current everyday Tobacco user Tobacco use type: Cigarette Second Hand Smoke Exposure: No Substance Use Type: Crack/Cocaine and Other Advance Directives: No Advance Directives Information Provided: No service: No Current occupational status: disabled Physical Exam Vital Signs: Vital Signs: Last Vital Signs Temp 99.1 F 11/21/20 23:13 Pulse 76 11/21/20 23:31 Resp 18 11/21/20 23:31 BP 213/113 H 11/21/20 23:31 Pulse Ox 97 11/21/20 23:31 Body Mass Index 24.4 Appearance: Alert. Oriented X3. Anxious in moderate distress Eyes: No pallor or icterus ENT: Pharynx normal. Oral Mucosa moist Neck: Normal inspection. Neck supple. CVS: Normal heart rate and rhythm. Pulses normal. Respiratory: No respiratory distress. Equal air entry bilateral, no wheezing/rales/rhonchi Abdomen: Soft , epigastric tenderness no rebound tenderness or guarding Bowel sounds are present, no mass palpable, no CVA tenderness Skin: Skin warm and dry. Normal skin color. Normal skin turgor. Extremities: No lower extremity edema. No calf tenderness Neuro: Oriented X 3. MDM - Nausea/Vomiting/Diarrhea MDM Narrative Medical decision making narrative: Patient continued to have epigastric pain and CT scan abdomen was done which was also negative labs are stable except for leukocytosis secondary to vomiting and volume loss patient received IV fluids feeling much better now will discharge patient home on PPI and Zofran Medical Records Attestation: I reviewed the patient's medical records. Lab Data Attestation: I reviewed the patient's lab results. Result diagrams: 11/21/20 21:31 11/21/20 21:31 Labs: Lab Results 11/21/20 11/21/20 11/21/20 Range/Units 21:31 21:31 21:31 WBC 16.3 H (4.8-10.8) X10*3/uL RBC 4.77 (4.60-5.80) X10*6/uL Hgb 15.2 (14.0-18.0) g/dl Hct 44.2 (42-52) % MCV 92.7 (80-98) fL MCH 31.9 (27.0-33.0) pg MCHC 34.4 (31.0-36.0) g/dl RDW 12.4 (11.0-16.0) % Plt Count 354 (160-400) X10*3/uL MPV 11.0 (9.4-12.4) fL Immature Gran % (Auto) 0.6 H (0.0-0.4) % Neut % (Auto) 80.4 H (45-73) % Lymph % (Auto) 13.9 L (20-40) % [place] % (Auto) 4.3 (2-11) % Eos % (Auto) 0.1 (0-4) % Baso % (Auto) 0.7 (0-2) % Lymph # (Auto) 2.3 (1.2-4.9) X10*3/uL [place] # (Auto) 0.7 (0.1-1.2) X10*3/uL Eos # (Auto) 0.0 (0.0-0.4) X10*3/uL Baso # (Auto) 0.1 (0.0-0.2) X10*3/uL Abs Immat Gran (auto) 0.10 H (0.00-0.03) X10*3/uL Absolute Neuts (auto) 13.1 H (2.0-8.3) X10*3/uL Absolute Nucleated RBC 0.000 (0.0-0.012) X10*3/uL Nucleated RBC % (auto) 0.0 (0.0-0.2) /100WBC Sodium 140 (135-145) mmol/L Potassium 4.7 D (3.3-5.1) mmol/L Chloride 108 (96-108) mmol/L Carbon Dioxide 15 L (22-29) mmol/L Anion Gap 22 H (12-20) BUN 17 H (9-16) mg/dL Creatinine 1.65 H (0.5-1.4) mg/dL Estim Creat Clear Calc 54.1 Estimated GFR 45 POC Glucose (60-115) mg/dL Random Glucose 327 H D (60-115) mg/dL Calcium 9.5 D (8.4-10.2) mg/dL Total Bilirubin 1.1 H (0.0-1.0) mg/dL AST 34 (5-37) U/L ALT 14 (0-40) U/L Alkaline Phosphatase 141 H D (39-117) U/L Troponin I High Sens < 3.5 (<3.5-35.0) ng/L Total Protein 8.9 H (6.5-8.0) g/dL Albumin 4.3 (3.5-5.0) g/dL Lipase 28 (8-78) U/L Urine Color Urine Appearance Urine pH (5.0-8.0) Ur Specific [place] (1.005-1.025) Urine Protein (NEG-TRACE) MG/DL Urine Glucose (UA) (NEG) MG/DL Urine Ketones (NEG) MG/DL Urine Blood (NEG) Urine Nitrite (NEG) Ur Leukocyte Esterase (NEG) Urine RBC (0) /HPF Urine WBC (0-4) /HPF Ur Squamous Epith Cells /LPF Urine Bacteria /LPF 11/21/20 11/21/20 Range/Units 21:31 21:38 WBC (4.8-10.8) X10*3/uL RBC (4.60-5.80) X10*6/uL Hgb (14.0-18.0) g/dl Hct (42-52) % MCV (80-98) fL MCH (27.0-33.0) pg MCHC (31.0-36.0) g/dl RDW (11.0-16.0) % Plt Count (160-400) X10*3/uL MPV (9.4-12.4) fL Immature Gran % (Auto) (0.0-0.4) % Neut % (Auto) (45-73) % Lymph % (Auto) (20-40) % [place] % (Auto) (2-11) % Eos % (Auto) (0-4) % Baso % (Auto) (0-2) % Lymph # (Auto) (1.2-4.9) X10*3/uL [place] # (Auto) (0.1-1.2) X10*3/uL Eos # (Auto) (0.0-0.4) X10*3/uL Baso # (Auto) (0.0-0.2) X10*3/uL Abs Immat Gran (auto) (0.00-0.03) X10*3/uL Absolute Neuts (auto) (2.0-8.3) X10*3/uL Absolute Nucleated RBC (0.0-0.012) X10*3/uL Nucleated RBC % (auto) (0.0-0.2) /100WBC Sodium (135-145) mmol/L Potassium (3.3-5.1) mmol/L Chloride (96-108) mmol/L Carbon Dioxide (22-29) mmol/L Anion Gap (12-20) BUN (9-16) mg/dL Creatinine (0.5-1.4) mg/dL Estim Creat Clear Calc Estimated GFR POC Glucose 270 H (60-115) mg/dL Random Glucose (60-115) mg/dL Calcium (8.4-10.2) mg/dL Total Bilirubin (0.0-1.0) mg/dL AST (5-37) U/L ALT (0-40) U/L Alkaline Phosphatase (39-117) U/L Troponin I High Sens (<3.5-35.0) ng/L Total Protein (6.5-8.0) g/dL Albumin (3.5-5.0) g/dL Lipase (8-78) U/L Urine Color YELLOW Urine Appearance CLEAR Urine pH 7.0 (5.0-8.0) Ur Specific [place] 1.010 (1.005-1.025) Urine Protein 1+ H (NEG-TRACE) MG/DL Urine Glucose (UA) 100 H (NEG) MG/DL Urine Ketones 15 (NEG) MG/DL Urine Blood NEG (NEG) Urine Nitrite NEG (NEG) Ur Leukocyte Esterase NEG (NEG) Urine RBC 1-4 (0) /HPF Urine WBC 1-4 (0-4) /HPF Ur Squamous Epith Cells TRACE /LPF Urine Bacteria NONE /LPF Discharge Plan Discharge Clinical Impression: Acute gastritis Qualifiers: Gastritis type: other gastritis Gastritis bleeding: without bleeding Qualified Code(s): K29.00 - Acute gastritis without bleeding Patient Disposition: Home, Self-Care Instructions: Gastritis (ED) Additional Instructions: Drink plenty of fluids Take medication for gastritis as advised Follow with PCP Prescriptions: New omeprazole 40 mg capsule,delayed release(DR/EC) 40 mg PO DAILY Qty: 30 RF: 0 ondansetron 4 mg tablet,disintegrating 4 mg PO Q6-8H PRN (Reason: nausea and vomiting) Qty: 15 RF: 0 sucralfate 1 gram tablet 1 g PO TID Qty: 90 RF: 0 No Action insulin aspart U-100 [Novolog Flexpen U-100 Insulin] 100 unit/mL (3 mL) insulin pen 15 unit subcut TID Qty: 15 RF: 3 aspirin 81 mg tablet,delayed release (DR/EC) 81 mg PO DAILY Qty: 90 RF: 0 atorvastatin [Lipitor] 80 mg tablet 80 mg PO BEDTIME Qty: 30 RF: 0 gabapentin 600 mg tablet 1 tab PO TID RF: 0 nitroglycerin 0.3 mg tablet, sublingual 1 tab sublingual USEASDIRECTD RF: 0 lisinopril 10 mg tablet 1 tab PO QAM RF: 0 metformin 500 mg tablet extended release 24 hr 2 tab PO BID RF: 0 hydroxyzine pamoate 25 mg capsule 1 cap PO BEDTIME RF: 0 venlafaxine 75 mg Capsule,Extended Release 24hr 75 mg PO DAILY RF: 0 prazosin 2 mg capsule 1 cap PO BEDTIME RF: 0 nicotine 21 mg/24 hr Patch 24 Hour 21 mg transdermal DAILY Qty: 28 RF: 0 cefazolin in dextrose (iso-os) 2 gram/50 mL Piggyback 50 ml IV Q8H 26 Days Qty: 78 RF: 0 lisinopril 5 mg tablet 5 mg PO DAILY Qty: 30 RF: 0 insulin degludec 100 unit/mL (3 mL) insulin pen 40 unit subcut QPM 30 Days Qty: 30 RF: 1 bupropion HCl 300 mg tablet extended release 24 hr 300 mg PO DAILY RF: 0 aripiprazole 15 mg tablet 15 mg PO DAILY RF: 0 omeprazole 20 mg capsule,delayed release(DR/EC) 20 mg PO DAILY RF: 0 trazodone 100 mg tablet 100 mg PO BEDTIME RF: 0 venlafaxine 150 mg capsule,extended release 24hr 150 mg PO DAILY RF: 0 (DME) pen needle, diabetic 32 gauge x 5/32 needle See Rx Instructions ea .ROUTE .MEDSUPPLY Qty: 50 RF: 0 (DME) lancets 33 gauge misc See Rx Instructions ea Not Applicable BID Qty: 100 RF: 0 (DME) FreeStyle Lite Strips Strip See Rx Instructions .ROUTE .MEDSUPPLY Qty: 150 RF: 11 (DME) lancets [TRUEplus Lancets] 33 gauge misc See Rx Instructions .ROUTE .MEDSUPPLY Qty: 200 RF: 11 cholecalciferol (vitamin D3) 50 mcg (2,000 unit) capsule 50 mcg PO QAM RF: 0 Citrucel 500 mg tablet 500 mg PO TID Qty: 90 RF: 2 Trulicity 1.5 mg/0.5 mL pen injector 1.5 mg subcut QWEEK 28 Days Qty: 2 RF: 3
--- NOTE | 2020-11-21 20:20 | ECG_ITS ---
Test Reason : NAUSEA/VOMITING Blood Pressure : / mmHG Vent. Rate : 092 BPM Atrial Rate : 092 BPM P-R Int : 166 ms QRS Dur : 086 ms QT Int : 398 ms P-R-T Axes : 048 -32 043 degrees QTc Int : 492 ms Normal sinus rhythm Left axis deviation Septal infarct (cited on or before 26-SEP-2020) Abnormal ECG When compared with ECG of 01-OCT-2020 18:51, No significant change was found Referred By: Guillermo Joshi Electronically Signed By:INDY SWIFT
[2020-11-21] MEDS: Morphine Sulfate 4 MG/ML CARTRIDGE IVPUSH ×2 (20:27→21:45)
[2020-11-21] MEDS: 0.9 % Sodium Chloride 1,000 ML 999 ML IVCONT ×2 (20:28→22:40)
[2020-11-21] MEDS: ondansetron HCL 4 MG/2 ML VIAL IVPUSH ×2 (20:28→21:32)
--- NOTE | 2020-11-21 20:32 | PC.NURSE ---
md at bedside, iv placed to LAC by ems, pt medicated for pain and nausea. NS up and running w/o site intact.
[2020-11-21 21:36] LABS: MANUAL DIFF FLAG NO
[2020-11-21 21:41] LABS: Glucose, Whole Blood 270 mg/dL (60-115)
[2020-11-21 21:46] LABS: Appearance Urine CLEAR; Color Urine YELLOW; Glucose Urine UA 100 MG/DL (NEG); Leukocyte Esterase Urine NEG (NEG); Nitrite Urine NEG (NEG); UACC Culture Trigger NO; Urine Blood NEG (NEG); Urine Ketones 15 MG/DL (NEG); Urine Protein 1+ MG/DL (NEG-TRACE)
[2020-11-21] MEDS: Labetalol HCL 100 MG/20 ML VIAL 20 MG IVPUSH (21:46)
--- NOTE | 2020-11-21 21:51 | PC.NURSE ---
MD AWARE OF PT'S HIGH B/P AND PT MEDICATED PER EMAR FOR PAIN AND NAUSEA.
[2020-11-21 21:56] LABS: Troponin-I High Sensitivity < 3.5 ng/L (<3.5-35.0)
[2020-11-21 21:57] LABS: Alanine Aminotransferase 14 U/L (0-40); Albumin Level 4.3 g/dL (3.5-5.0); Alkaline Phosphatase 141 U/L (39-117); Anion Gap 22 (12-20); Aspartate Amino Transferase 34 U/L (5-37); Bilirubin Total 1.1 mg/dL (0.0-1.0); Blood Urea Nitrogen 17 mg/dL (9-16); Calcium 9.5 mg/dL (8.4-10.2); Carbon Dioxide 15 mmol/L (22-29); Chloride 108 mmol/L (96-108); Creatinine Clr Calc Pharmacy 54.1; Estimated Glomerular Filt Rate 45; Glucose Random 327 mg/dL (60-115); Lipase 28 U/L (8-78); Potassium 4.7 mmol/L (3.3-5.1); Sodium 140 mmol/L (135-145); Total Protein 8.9 g/dL (6.5-8.0)
[2020-11-21 22:08] LABS: Basophils Absolute Auto 0.1 X10*3/uL (0.0-0.2); Basophils Percent Auto 0.7 % (0-2); Eosinophils Percent Auto 0.1 % (0-4); Hematocrit 44.2 % (42-52); Hemoglobin 15.2 g/dl (14.0-18.0); Imm Gran Pct Auto 0.6 % (0.0-0.4); Lymphocytes Absolute Auto 2.3 X10*3/uL (1.2-4.9); Lymphocytes Percent Auto 13.9 % (20-40); Mean Corpuscular HGB Conc 34.4 g/dl (31.0-36.0); Mean Corpuscular Hemoglobin 31.9 pg (27.0-33.0); Mean Corpuscular Volume 92.7 fL (80-98); Monocytes Absolute Auto 0.7 X10*3/uL (0.1-1.2); Monocytes Percent Auto 4.3 % (2-11); Neutrophils Absolute Auto 13.1 X10*3/uL (2.0-8.3); Neutrophils Percent Auto 80.4 % (45-73); Platelet Count 354 X10*3/uL (160-400); Red Blood Count 4.77 X10*6/uL (4.60-5.80); Red Cell Distribution Width 12.4 % (11.0-16.0); White Blood Count 16.3 X10*3/uL (4.8-10.8)
[2020-11-21 22:09] LABS: Squamous Epithelial Cell Urine TRACE /LPF
[2020-11-21] MEDS: Famotidine/PF 20 MG/2 ML VIAL IVPUSH (23:29)
[2020-11-21] MEDS: Lidocaine HCl Viscous 2 % 15 ML SOLUTION MUCOUS MEM (23:29)
[2020-11-21] MEDS: Magnesium Hydrox/Alum Hydrox 30 ML ORAL.SUSP PO (23:29)
--- NOTE | 2020-11-21 23:35 | PC.NURSE ---
AWARE OF HIGH B/P
--- NOTE | 2020-11-22 01:00 | PC.NURSE ---
pt still c/o nausea and abd pain.
== END 2020-11-22 01:30 | disposition home or self-care (01) ==
PROVIDERS: Emergency Provider Internal Medicine
DX: K29.00 Acute gastritis without bleeding (principal); R11.2 Nausea with vomiting, unspecified; F17.210 Nicotine dependence, cigarettes, uncomplicated; Z71.6 Tobacco abuse counseling; Z79.899 Other long term (current) drug therapy; Z79.82 Long term (current) use of aspirin
CPT/HCPCS: 36415; 74176; 80053; 81001; 82947; 83690; 84484; 85025; 93005; 96361; 96374; 96375; 96376; 99284; J2270; J2405

== ENCOUNTER 2020-11-23 10:34 | Inpatient (IN) | payer OTHER, SELFPAY ==
--- NOTE | ~2020-11-23 | US_ITS ---
EXAMINATION: US ABDOMEN LIMITED CLINICAL INFORMATION: Right upper quadrant pain. Evaluate for gallbladder disease. COMPARISON: CT abdomen/pelvis dated 11/21/2020 TECHNIQUE: Real-time imaging of the right upper quadrant abdominal viscera. FINDINGS: PANCREAS: Normal. LIVER: Normal. The liver is normal in size. The liver contour is normal. Parenchymal echogenicity is normal. No focal hepatic lesion. There is no intrahepatic biliary duct dilatation seen. GALLBLADDER: Normal. The gallbladder is physiologically distended without evidence of stones, sludge, polyps, wall thickening or pericholecystic fluid. COMMON BILE DUCT: Normal in caliber measuring 0.4 cm in diameter. RIGHT KIDNEY: Normal. No hydronephrosis. No renal calculi or focal parenchymal lesions. The kidney measures 13.1 cm in maximum dimension. FREE FLUID: None. US/US abdomen limited IMPRESSION: No cholelithiasis, gallbladder wall thickening, or pericholecystic free fluid to suggest acute cholecystitis.
--- NOTE | ~2020-11-23 | NM_ITS ---
EXAMINATION: ND RADIONUCLIDE SOLID FOOD GASTRIC EMPTYING 4-HOUR STUDY CLINICAL INFORMATION: Abdominal pain. Type 2 diabetes mellitus. Nausea and vomiting. COMPARISON: None TECHNIQUE: A solid meal consisting of 8 oz of Ensure tagged with 1.0 microcuries Tc-99m Sulfur Colloid was administered orally to the patient. Images were obtained using a dual head gamma camera in the anterior and posterior projections over of the stomach immediately post ingestion and at hourly intervals up to 4 hours post ingestion. The anterior and posterior counts at each time interval were averaged using the geometric mean and expressed as percentage of the immediate post ingestion counts. FINDINGS: There is good visualization of activity in the stomach immediately post ingestion. As the study progresses, there is gradual clearance of activity from the stomach and visualization of progressively increasing small bowel activity. By the end of the study, there is mild retention noted in the stomach. Retention in the stomach at each time interval was: 1 hour 86% (normal 37%-90%) 2 hours 58% (normal 30%-60%) 3 hours 39% 4 hours 27% (normal 0%-10%) ND/ND gastric emptying study IMPRESSION: Mild delay in gastric emptying observed, based on the finding of 27% retention of activity in the stomach after 4 hours.
[2020-11-23 10:56] VITALS: BP 195/115; BP 203/100; PULSE 101; PULSE 106; RESP 16; TEMP 37.2; O2SAT 100; BMI 27.2
--- NOTE | 2020-11-23 11:50 | ED_ITS ---
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 Pain started 4 days ago, described as sharp constant pain in the upper epigastric/right upper quadrant area, pain is constant, no radiation, seems food aggravate the pain, nothing relieves the pain, pain is associated with nausea and vomiting, no diarrhea last bowel movement was 2 days ago with passing gas, patient was seen and evaluated in the emergency department for same pain 2 days ago, patient had CT of the abdomen and pelvis which shows no acute findings. Of note patient have a PICC line for left olecranon septic bursitis patient received cefazolin IV antibiotic via the PICC line. Related Data Home Medications Medication Instructions Recorded Confirmed aripiprazole 15 mg tablet 15 mg PO DAILY 07/20/20 11/23/20 bupropion HCl 300 mg 24 hr tablet, 300 mg PO DAILY 07/20/20 11/23/20 extended release lancets 33 gauge #100 ea 07/20/20 11/08/20 omeprazole 20 mg capsule,delayed 20 mg PO DAILY 07/20/20 11/23/20 release pen needle, diabetic 32 gauge x #50 ea 07/20/20 11/08/20 trazodone 100 mg tablet 100 mg PO BEDTIME 07/20/20 11/23/20 venlafaxine 150 mg 150 mg PO DAILY 07/20/20 11/23/20 capsule,extended release 24 hr cholecalciferol (vitamin D3) 50 50 mcg PO QAM 11/03/20 11/23/20 mcg (2,000 unit) capsule gabapentin 600 mg tablet 1 tab PO TID 11/09/20 11/23/20 hydroxyzine pamoate 25 mg capsule 1 cap PO BEDTIME 11/09/20 11/23/20 metformin 500 mg tablet,extended 2 tab PO BID 11/09/20 11/23/20 release 24 hr nitroglycerin 0.3 mg sublingual 1 tab SUBLINGUAL USEASDIRECTD 11/09/20 11/23/20 tablet prazosin 2 mg capsule 1 cap PO BEDTIME 11/09/20 11/23/20 venlafaxine 75 mg capsule,extended 75 mg PO DAILY 11/09/20 11/23/20 release 24 hr Previous Rx's Medication Instructions Recorded blood sugar diagnostic (FreeStyle #150 ea 07/20/20 Lite Strips) lancets 33 gauge (TRUEplus Lancets) #200 ea 07/20/20 insulin aspart U-100 100 unit/mL 15 unit SUBCUT TID #15 ml 08/10/20 (3 mL) subcutaneous pen (Novolog Flexpen U-100 Insulin aspart) dulaglutide 1.5 mg/0.5 mL 1.5 mg SUBCUT QWEEK 28 Days #2 ml 08/30/20 subcutaneous pen injector (Trulicity) aspirin 81 mg tablet,delayed 81 mg PO DAILY #90 tab 09/28/20 release atorvastatin 80 mg tablet (Lipitor) 80 mg PO BEDTIME #30 tab 09/28/20 methylcellulose (laxative) 500 mg 500 mg PO TID #90 tab 11/03/20 tablet (Citrucel) cefazolin 2 gram/50 mL in dextrose 50 ml IV Q8H 26 Days #78 ea 11/16/20 (iso-osmotic) intravenous piggyback insulin degludec 100 unit/mL (3 40 unit SUBCUT QPM 30 Days #30 ml 11/16/20 mL) subcutaneous pen lisinopril 5 mg tablet 5 mg PO DAILY #30 tab 11/16/20 nicotine 21 mg/24 hr daily 21 mg TRANSDERMAL DAILY #28 ea 11/16/20 transdermal patch ondansetron 4 mg disintegrating 4 mg PO Q6-8H PRN #15 tab 11/22/20 tablet sucralfate 1 gram tablet 1 g PO TID #90 tab 11/22/20 Allergies Allergy/AdvReac Type Severity Reaction Status Date / Time No Known Allergies Allergy Unverified 11/07/20 21:24 [No Known Allergies*] Review of Systems Review of Systems All other systems are reviewed and are negative Constitutional: Reports as per HPI and Reports no additional constitutional complaints Eyes: Reports as per HPI and Reports no additional eye complaints Reports system reviewed and no additional complaints, except as documented Cardiovascular: Reports as per HPI and Reports no additional cardiovascular complaints Respiratory: Reports as per HPI and Reports no additional respiratory complaints Gastrointestinal: Reports as per HPI and Reports no additional gastrointestinal complaints Genitourinary: Reports no additional female genitourinary complaints Musculoskeletal: Reports no additional musculoskeletal complaints Skin/Breast: Reports system reviewed and no additional complaints, except as docu Psychiatric: Reports no additional psychiatric complaints Endocrine: Reports no additional endocrine complaints Hematologic/Lymphatic: Reports no additional hematologic/lymphatic complaints Allergic/Immunologic: Reports no additional allergic/immunologic complaints Reports system reviewed and no additional complaints, except as documented and Reports Abnormal speech present. Physical Exam Vital Signs: Vital Signs: Last Vital Signs Temp 98.9 F 11/23/20 10:56 Pulse 106 H 11/23/20 10:56 Resp 16 11/23/20 10:56 BP 203/100 H 11/23/20 10:56 Pulse Ox 100 11/23/20 10:56 Body Mass Index 27.2 Vital signs have been reviewed as appeared to be correct. Blood pressure elevated. Heart rate elevated. Respiration rate normal. Temperature normal. Oxygen saturation normal. Appearance: Alert. Oriented X3. No acute distress. Head: Normal external exam. Normocephalic. Atraumatic. No Baez signs noted. No raccoon eyes noted Eyes: PERRLA. EOMI. Conjunctiva and sclera normal. Eyelids normal. ENT: TM's Normal. Pharynx normal. Uvula midline. Moist mucous membranes. No trismus noted. No drooling noted. No muffled voice noted. Neck: Normal inspection. Neck supple. FROM. No adenopathy. Thyroid Normal. No meningeal signs. No neck mass noted. CVS: Normal heart rate and rhythm. Heart sound normal. No murmurs noted. Pulses normal throughout. Respiratory: No respiratory distress. Painless inspiration. Breath sounds normal. No wheezes/rales/rhonchi noted. Chest nontender. No accessory muscle usage noted or decreased air movement noted. Abdomen: Soft, mild epigastric tenderness, no rebound tenderness, no guarding. Bowel sounds normal in all 4 quadrants. No distention noted. No organomegaly noted. No visible injury noted. Back: No CVA tenderness. Full range of motion noted. Skin: Skin warm and dry. Normal skin color. Normal skin turgor. No rashes/les ions/lacerations noted. Extremities: No lower extremity edema. Extremities exhibit normal range of motion. Extremities nontender. Neuro: Oriented X 3. Cranial nerve exam: II-XII are grossly intact No motor deficit. No sensory deficit. Reflexes normal. Course Course Course Narrative: Assessment and plan. 50-year-old male with history of diabetes came in with intractable vomiting and upper abdominal pain, patient was seen and evaluated 3 days ago in the emergency department for similar symptoms, had extensive workup for abdominal pain including CT of the abdomen and pelvis was well unremarkable, patient was discharged home on PPI/anti emetic medication with no relief of patient's sympt oms, patient returned today with worsening of his pain and symptoms. BUN creatinine is elevated. Intractable vomiting is likely to be diabetic gastroparesis. MDM - Abdominal Pain Medical Records Attestation: I reviewed the patient's medical records. Lab Data Attestation: I reviewed the patient's lab results. Result diagrams: 11/23/20 12:36 11/23/20 12:36 Labs: Lab Results 11/23/20 11/23/20 11/23/20 Range/Units 12:36 12:36 12:36 WBC 15.7 H (4.8-10.8) X10*3/uL RBC 4.37 L (4.60-5.80) X10*6/uL Hgb 14.2 (14.0-18.0) g/dl Hct 39.9 L (42-52) % MCV 91.3 (80-98) fL MCH 32.5 (27.0-33.0) pg MCHC 35.6 (31.0-36.0) g/dl RDW 12.3 (11.0-16.0) % Plt Count 306 (160-400) X10*3/uL MPV 10.7 (9.4-12.4) fL Immature Gran % (Auto) 0.4 (0.0-0.4) % Neut % (Auto) 64.1 (45-73) % Lymph % (Auto) 27.0 (20-40) % Berrien % (Auto) 8.1 (2-11) % Eos % (Auto) 0.0 (0-4) % Baso % (Auto) 0.4 (0-2) % Lymph # (Auto) 4.3 (1.2-4.9) X10*3/uL Berrien # (Auto) 1.3 H (0.1-1.2) X10*3/uL Eos # (Auto) 0.0 (0.0-0.4) X10*3/uL Baso # (Auto) 0.1 (0.0-0.2) X10*3/uL Abs Immat Gran (auto) 0.07 H (0.00-0.03) X10*3/uL Absolute Neuts (auto) 10.1 H (2.0-8.3) X10*3/uL Absolute Nucleated RBC 0.000 (0.0-0.012) X10*3/uL Nucleated RBC % (auto) 0.0 (0.0-0.2) /100WBC Sodium 137 (135-145) mmol/L Potassium 3.6 D (3.3-5.1) mmol/L Chloride 102 (96-108) mmol/L Carbon Dioxide 23 (22-29) mmol/L Anion Gap 16 (12-20) BUN 27 H D (9-16) mg/dL Creatinine 1.46 H (0.5-1.4) mg/dL Estim Creat Clear Calc 63.1 Estimated GFR 51 Random Glucose 196 H D (60-115) mg/dL Calcium 9.1 (8.4-10.2) mg/dL Total Bilirubin 1.0 (0.0-1.0) mg/dL Direct Bilirubin 0.4 (0.0-0.5) mg/dL AST 51 H (5-37) U/L ALT 28 (0-40) U/L Alkaline Phosphatase 117 (39-117) U/L Troponin I High Sens 7.5 D (<3.5-35.0) ng/L Total Protein 8.3 H (6.5-8.0) g/dL Albumin 4.1 (3.5-5.0) g/dL Lipase 30 (8-78) U/L Urine Color Urine Appearance Urine pH (5.0-8.0) Ur Specific Dennis (1.005-1.025) Urine Protein (NEG-TRACE) MG/DL Urine Glucose (UA) (NEG) MG/DL Urine Ketones (NEG) MG/DL Urine Blood (NEG) Urine Nitrite (NEG) Ur Leukocyte Esterase (NEG) 11/23/20 Range/Units 14:40 WBC (4.8-10.8) X10*3/uL RBC (4.60-5.80) X10*6/uL Hgb (14.0-18.0) g/dl Hct (42-52) % MCV (80-98) fL MCH (27.0-33.0) pg MCHC (31.0-36.0) g/dl RDW (11.0-16.0) % Plt Count (160-400) X10*3/uL MPV (9.4-12.4) fL Immature Gran % (Auto) (0.0-0.4) % Neut % (Auto) (45-73) % Lymph % (Auto) (20-40) % Berrien % (Auto) (2-11) % Eos % (Auto) (0-4) % Baso % (Auto) (0-2) % Lymph # (Auto) (1.2-4.9) X10*3/uL Berrien # (Auto) (0.1-1.2) X10*3/uL Eos # (Auto) (0.0-0.4) X10*3/uL Baso # (Auto) (0.0-0.2) X10*3/uL Abs Immat Gran (auto) (0.00-0.03) X10*3/uL Absolute Neuts (auto) (2.0-8.3) X10*3/uL Absolute Nucleated RBC (0.0-0.012) X10*3/uL Nucleated RBC % (auto) (0.0-0.2) /100WBC Sodium (135-145) mmol/L Potassium (3.3-5.1) mmol/L Chloride (96-108) mmol/L Carbon Dioxide (22-29) mmol/L Anion Gap (12-20) BUN (9-16) mg/dL Creatinine (0.5-1.4) mg/dL Estim Creat Clear Calc Estimated GFR Random Glucose (60-115) mg/dL Calcium (8.4-10.2) mg/dL Total Bilirubin (0.0-1.0) mg/dL Direct Bilirubin (0.0-0.5) mg/dL AST (5-37) U/L ALT (0-40) U/L Alkaline Phosphatase (39-117) U/L Troponin I High Sens (<3.5-35.0) ng/L Total Protein (6.5-8.0) g/dL Albumin (3.5-5.0) g/dL Lipase (8-78) U/L Urine Color YELLOW Urine Appearance CLEAR Urine pH 6.0 (5.0-8.0) Ur Specific Dennis 1.015 (1.005-1.025) Urine Protein 1+ H (NEG-TRACE) MG/DL Urine Glucose (UA) 250 H (NEG) MG/DL Urine Ketones NEG (NEG) MG/DL Urine Blood 1+ H (NEG) Urine Nitrite NEG (NEG) Ur Leukocyte Esterase NEG (NEG) Imaging Data US - abdomen: Radiologist's impression: No cholelithiasis, gallbladder wall thickening, or pericholecystic free fluid to suggest acute cholecystitis. Discharge Plan Discharge Clinical Impression: Intractable vomiting, Dehydration, TJ (acute kidney injury) Patient Disposition: Admitted As Inpatient Prescriptions: No Action insulin aspart U-100 [Novolog Flexpen U-100 Insulin] 100 unit/mL (3 mL) insulin pen 15 unit subcut TID Qty: 15 RF: 3 aspirin 81 mg tablet,delayed release (DR/EC) 81 mg PO DAILY Qty: 90 RF: 0 atorvastatin [Lipitor] 80 mg tablet 80 mg PO BEDTIME Qty: 30 RF: 0 gabapentin 600 mg tablet 1 tab PO TID RF: 0 nitroglycerin 0.3 mg tablet, sublingual 1 tab sublingual USEASDIRECTD RF: 0 metformin 500 mg tablet extended release 24 hr 2 tab PO BID RF: 0 hydroxyzine pamoate 25 mg capsule 1 cap PO BEDTIME RF: 0 venlafaxine 75 mg Capsule,Extended Release 24hr 75 mg PO DAILY RF: 0 prazosin 2 mg capsule 1 cap PO BEDTIME RF: 0 nicotine 21 mg/24 hr Patch 24 Hour 21 mg transdermal DAILY Qty: 28 RF: 0 cefazolin in dextrose (iso-os) 2 gram/50 mL Piggyback 50 ml IV Q8H 26 Days Qty: 78 RF: 0 lisinopril 5 mg tablet 5 mg PO DAILY Qty: 30 RF: 0 insulin degludec 100 unit/mL (3 mL) insulin pen 40 unit subcut QPM 30 Days Qty: 30 RF: 1 ondansetron 4 mg tablet,disintegrating 4 mg PO Q6-8H PRN (Reason: nausea and vomiting) Qty: 15 RF: 0 sucralfate 1 gram tablet 1 g PO TID Qty: 90 RF: 0 bupropion HCl 300 mg tablet extended release 24 hr 300 mg PO DAILY RF: 0 aripiprazole 15 mg tablet 15 mg PO DAILY RF: 0 omeprazole 20 mg capsule,delayed release(DR/EC) 20 mg PO DAILY RF: 0 trazodone 100 mg tablet 100 mg PO BEDTIME RF: 0 venlafaxine 150 mg capsule,extended release 24hr 150 mg PO DAILY RF: 0 (DME) pen needle, diabetic 32 gauge x 5/32 needle See Rx Instructions ea .ROUTE .MEDSUPPLY Qty: 50 RF: 0 (DME) lancets 33 gauge misc See Rx Instructions ea Not Applicable BID Qty: 100 RF: 0 (DME) FreeStyle Lite Strips Strip See Rx Instructions .ROUTE .MEDSUPPLY Qty: 150 RF: 11 (DME) lancets [TRUEplus Lancets] 33 gauge misc See Rx Instructions .ROUTE .MEDSUPPLY Qty: 200 RF: 11 cholecalciferol (vitamin D3) 50 mcg (2,000 unit) capsule 50 mcg PO QAM RF: 0 Citrucel 500 mg tablet 500 mg PO TID Qty: 90 RF: 2 Trulicity 1.5 mg/0.5 mL pen injector 1.5 mg subcut QWEEK 28 Days Qty: 2 RF: 3 PMFSH Past Medical History Medical History Anxiety Arthritis Depression Diabetes Essential hypertension High cholesterol High cholesterol History of myocardial infarction HTN (hypertension) Hyperlipidemia LDL goal <70 Normal echocardiogram Type 2 diabetes mellitus with unspecified complications Surgical History H/O cardiac catheterization History of appendectomy Hx of foot surgery Family History Family History Mother Alzheimer disease HTN (hypertension) Father Old age Brother Diabetes mellitus Maternal Grandmother Diabetes mellitus Heart disease Social History Social History Household Members: Friend(s) Household Members Other:: Roommate Housing: House Do you presently have visiting nurse or other home services: No Alcohol intake: current Alcohol intake frequency: does not drink Patient Tobacco Use Status: Current everyday Tobacco user Tobacco use type: Cigarette Second Hand Smoke Exposure: No Substance Use Type: Crack/Cocaine and Other Advance Directives: No service: No Current occupational status: disabled
[2020-11-23] MEDS: 0.9 % Sodium Chloride 1,000 ML 999 ML IVCONT ×2 (12:08→15:15)
[2020-11-23] MEDS: Famotidine/PF 20 MG/2 ML VIAL IVPUSH (12:10)
[2020-11-23] MEDS: Morphine Sulfate 2 MG/ML CARTRIDGE 1 MG IVPUSH ×3 (12:10→16:49)
[2020-11-23 12:45] LABS: MANUAL DIFF FLAG NO
[2020-11-23] MEDS: ondansetron HCL 4 MG/2 ML VIAL IVPUSH (12:45)
[2020-11-23 12:48] LABS: Basophils Absolute Auto 0.1 X10*3/uL (0.0-0.2); Basophils Percent Auto 0.4 % (0-2); Hematocrit 39.9 % (42-52); Hemoglobin 14.2 g/dl (14.0-18.0); Imm Gran Abs Auto 0.07 X10*3/uL (0.00-0.03); Imm Gran Pct Auto 0.4 % (0.0-0.4); Lymphocytes Absolute Auto 4.3 X10*3/uL (1.2-4.9); Mean Corpuscular HGB Conc 35.6 g/dl (31.0-36.0); Mean Corpuscular Hemoglobin 32.5 pg (27.0-33.0); Mean Corpuscular Volume 91.3 fL (80-98); Mean Platelet Volume 10.7 fL (9.4-12.4); Monocytes Absolute Auto 1.3 X10*3/uL (0.1-1.2); Monocytes Percent Auto 8.1 % (2-11); Neutrophils Absolute Auto 10.1 X10*3/uL (2.0-8.3); Neutrophils Percent Auto 64.1 % (45-73); Platelet Count 306 X10*3/uL (160-400); Red Blood Count 4.37 X10*6/uL (4.60-5.80); Red Cell Distribution Width 12.3 % (11.0-16.0); White Blood Count 15.7 X10*3/uL (4.8-10.8)
[2020-11-23 13:03] LABS: Alanine Aminotransferase 28 U/L (0-40); Albumin Level 4.1 g/dL (3.5-5.0); Alkaline Phosphatase 117 U/L (39-117); Anion Gap 16 (12-20); Aspartate Amino Transferase 51 U/L (5-37); Bilirubin Direct 0.4 mg/dL (0.0-0.5); Blood Urea Nitrogen 27 mg/dL (9-16); Calcium 9.1 mg/dL (8.4-10.2); Carbon Dioxide 23 mmol/L (22-29); Chloride 102 mmol/L (96-108); Creatinine Clr Calc Pharmacy 63.1; Estimated Glomerular Filt Rate 51; Glucose Random 196 mg/dL (60-115); Lipase 30 U/L (8-78); Potassium 3.6 mmol/L (3.3-5.1); Sodium 137 mmol/L (135-145); Total Protein 8.3 g/dL (6.5-8.0)
[2020-11-23 13:09] LABS: Troponin-I High Sensitivity 7.5 ng/L (<3.5-35.0)
--- NOTE | 2020-11-23 14:20 | PHA.MEDREC ---
Pharmacy Consult ? Medication Reconciliation Pharmacy has completed the medication reconciliation. Patient was recently discharge on 11/18/2020. Called Pharmacy to verify that medication were filled and dispensed. Libia Liriano, PetrD
[2020-11-23 14:48] LABS: Appearance Urine CLEAR; Color Urine YELLOW; Glucose Urine UA 250 MG/DL (NEG); Leukocyte Esterase Urine NEG (NEG); Nitrite Urine NEG (NEG); Specific Gravity - Urine 1.015 (1.005-1.025); UACC Culture Trigger NO; Urine Blood 1+ (NEG); Urine Ketones NEG (NEG); Urine Protein 1+ MG/DL (NEG-TRACE)
--- NOTE | 2020-11-23 15:07 | P.HPHOSP_ITS ---
History of Present Illness Date of Service: 11/23/20 Chief Complaint: abd pain/nausea/vomiting 50yo M with IDDM, HTN, HLD, and CAD who was recently hospitalized here 11/09- 11/17/20 for sepsis due to left olecranon bursitis complicated by MSSA bacteremia. PICC was placed and he was sent home on IV cefazolin 2g q8h. He developed fairly acute onset epigastric pain, nausea, non-bloody non-bilious emesis 3d ago. Pain is severe and constant. He was seen in ED here 11/21/20; CT A/P did not show acute pathology. He had mild leukocytosis. Symptoms were attributed to gastritis and he was sent home on PPI, ondansetron, and sucralfate. However, symptoms have worsened and he returned to the ED today. He has no diarrhea. He denies fever, cough, dyspnea, or chest pain. He has history of 1-time cocaine abuse back in August but denies any cocaine use since then and denies use of marijuana. Denies EtOH as well. He has been unable to sleep due to the pain. In the ED, he was hypertensive, with mild leukocytosis. Abdominla ultrasound was normal. He was given IV fluids and IV ondansetron + metoclopramide + morp shannon + hydromorphone but still c/o severe abdominal pain. Review of Systems Review of Systems: Yes all other systems are reviewed and are negative [facility] Medical History Anxiety Arthritis Depression Diabetes Essential hypertension High cholesterol High cholesterol History of myocardial infarction HTN (hypertension) Hyperlipidemia LDL goal <70 Normal echocardiogram Type 2 diabetes mellitus with unspecified complications Family History Mother Alzheimer disease HTN (hypertension) Father Old age Brother Diabetes mellitus Maternal Grandmother Diabetes mellitus Heart disease Pertinent family history: reviewed above Surgical History H/O cardiac catheterization History of appendectomy Hx of foot surgery Social History Household Members: Friend(s) Household Members Other:: Roommate Housing: House Do you presently have visiting nurse or other home services: No Alcohol intake: current Alcohol intake frequency: does not drink Patient Tobacco Use Status: Current everyday Tobacco user Tobacco use type: Cigarette Second Hand Smoke Exposure: No Substance Use Type: Crack/Cocaine and Other Advance Directives: No service: No Current occupational status: disabled Meds Allergies Allergy/AdvReac Type Severity Reaction Status Date / Time No Known Allergies Allergy Unverified 11/07/20 21:24 [No Known Allergies*] Active Medications: Current Medications Aripiprazole (Aripiprazole 15 Mg Tablet) 15 mg PO DAILY [facility] Aspirin (Aspirin Enteric Coated 81 Mg Tablet.) 81 mg PO DAILY [facility] Atorvastatin Calcium (Atorvastatin Calcium 80 Mg Tablet) 80 mg PO BEDTIME [facility] Bupropion HCl (Bupropion Hcl Xl 300 Mg Tab.Er.24h) 300 mg PO DAILY [facility] Dextrose (Dextrose 50 % 25 Gm/50 Ml Vial) 25 gm IVPUSH Q15M PRN; Protocol PRN Reason: per Hypoglycemia Standing Ord. Gabapentin (Gabapentin 600 Mg Tablet) 600 mg PO TID [facility] Glucose (Glucose Gel 15 Gm Gel..Gram.) 15 gm PO Q15M PRN; Protocol PRN Reason: per Hypoglycemia Standing Ord. Hydroxyzine HCl (Hydroxyzine Hcl 25 Mg Tablet) 25 mg PO BEDTIME [facility] Insulin Glargine (Insulin Glargine,Hum.Rec.Anlog 100 Unit/Ml 10 Ml Vial) 20 unit SUBCUT BEDTIME [facility] Insulin Human Lispro (Insulin Lispro 100 Unit/Ml 3 Ml Vial) 0 unit SUBCUT QIDACHS [facility]; Protocol Lisinopril (Lisinopril 5 Mg Tablet) 5 mg PO DAILY [facility]; Protocol Nicotine (Nicotine 21 Mg Patch.Td24) 21 mg TRANSDERMA DAILY [facility] Non-Formulary Medication (Nitroglycerin) 1 tab SUBLINGUAL USEASDIRECTD [facility] Non-Formulary Medication (Cefazolin In Dextrose (Iso-Os) [Cefazolin In Dextrose (Iso-Os)]) 50 ml IV Q8H [facility] Omeprazole (Omeprazole 20 Mg Capsule.) 20 mg PO DAILY [facility] Pharmacy Consult (Consult Rx Perform Med Rec) 1 each MISCELLANE ONCE PRN PRN Reason: Consult order Prazosin HCl (Prazosin Hcl 1 Mg Capsule) 2 mg PO BEDTIME [facility]; Protocol Sucralfate (Sucralfate 1 Gm Tablet) 1 gm PO TID [facility] Trazodone HCl (Trazodone Hcl 100 Mg Tablet) 100 mg PO BEDTIME [facility] Venlafaxine HCl (Venlafaxine Hcl Er 75 Mg Cap.Er.24h) 75 mg PO DAILY [facility] Venlafaxine HCl (Venlafaxine Hcl Er 150 Mg Cap.Er.24h) 150 mg PO DAILY [facility] Vitamin D (Cholecalciferol (Vitamin D3) 25 Mcg Tablet) 50 mcg PO QAM [facility] Home Medications Medication Instructions Recorded Confirmed Last Taken Type aripiprazole 15 mg tablet 15 mg PO DAILY 07/20/20 11/23/20 Unknown History bupropion HCl 300 mg 24 hr tablet, 300 mg PO DAILY 07/20/20 11/23/20 Unknown History extended release lancets 33 gauge #100 ea 07/20/20 11/08/20 Unknown History omeprazole 20 mg capsule,delayed 20 mg PO DAILY 07/20/20 11/23/20 Unknown History release pen needle, diabetic 32 gauge x #50 ea 07/20/20 11/08/20 Unknown History trazodone 100 mg tablet 100 mg PO BEDTIME 07/20/20 11/23/20 Unknown History venlafaxine 150 mg 150 mg PO DAILY 07/20/20 11/23/20 Unknown History capsule,extended release 24 hr cholecalciferol (vitamin D3) 50 50 mcg PO QAM 11/03/20 11/23/20 Unknown History mcg (2,000 unit) capsule gabapentin 600 mg tablet 1 tab PO TID 11/09/20 11/23/20 Unknown History hydroxyzine pamoate 25 mg capsule 1 cap PO BEDTIME 11/09/20 11/23/20 Unknown History metformin 500 mg tablet,extended 2 tab PO BID 11/09/20 11/23/20 Unknown History release 24 hr nitroglycerin 0.3 mg sublingual 1 tab SUBLINGUAL USEASDIRECTD 11/09/20 11/23/20 Unknown History tablet prazosin 2 mg capsule 1 cap PO BEDTIME 11/09/20 11/23/20 Unknown History venlafaxine 75 mg capsule,extended 75 mg PO DAILY 11/09/20 11/23/20 Unknown History release 24 hr Physical Exam Vital Signs and Narrative: Vital Signs: Last Vital Signs Temp 98.9 F 11/23/20 10:56 Pulse 106 H 11/23/20 10:56 Resp 16 11/23/20 10:56 BP 203/100 H 11/23/20 10:56 Pulse Ox 100 11/23/20 10:56 Body Mass Index 27.2 Gen: uncomfortable HEENT: sclera anicteric, moist mucus membranes Neck: supple Lungs: clear to auscultation bilaterally Heart: regular rate and rhythm, no murmurs Abd: soft, epigastric tenderness without rebound/guarding or masses Ext: no edema, RUE PICC without signs of infection Skin: warm/well-perfused Neuro: alert and oriented x3, no focal findings Psych: appropriate affect Results Labs CBC and Chem 7: 11/23/20 12:36 11/23/20 12:36 Labs: Laboratory Results - last 24 hr 11/23/20 11/23/20 11/23/20 12:36 12:36 12:36 MCV 91.3 MCH 32.5 MCHC 35.6 RDW 12.3 Plt Count 306 MPV 10.7 Immature Gran % (Auto) 0.4 Neut % (Auto) 64.1 Lymph % (Auto) 27.0 Carson % (Auto) 8.1 Eos % (Auto) 0.0 Baso % (Auto) 0.4 Lymph # (Auto) 4.3 Carson # (Auto) 1.3 H Eos # (Auto) 0.0 Baso # (Auto) 0.1 Abs Immat Gran (auto) 0.07 H Absolute Neuts (auto) 10.1 H Absolute Nucleated RBC 0.000 Nucleated RBC % (auto) 0.0 Anion Gap 16 Estim Creat Clear Calc 63.1 Estimated GFR 51 Random Glucose 196 H D Calcium 9.1 Total Bilirubin 1.0 Direct Bilirubin 0.4 AST 51 H ALT 28 Alkaline Phosphatase 117 Troponin I High Sens 7.5 D Total Protein 8.3 H Albumin 4.1 Lipase 30 Urine Color Urine Appearance Urine pH Ur Specific Aurora Urine Protein Urine Glucose (UA) Urine Ketones Urine Blood Urine Nitrite Ur Leukocyte Esterase 11/23/20 14:40 MCV MCH MCHC RDW Plt Count MPV Immature Gran % (Auto) Neut % (Auto) Lymph % (Auto) Carson % (Auto) Eos % (Auto) Baso % (Auto) Lymph # (Auto) Carson # (Auto) Eos # (Auto) Baso # (Auto) Abs Immat Gran (auto) Absolute Neuts (auto) Absolute Nucleated RBC Nucleated RBC % (auto) Anion Gap Estim Creat Clear Calc Estimated GFR Random Glucose Calcium Total Bilirubin Direct Bilirubin AST ALT Alkaline Phosphatase Troponin I High Sens Total Protein Albumin Lipase Urine Color YELLOW Urine Appearance CLEAR Urine pH 6.0 Ur Specific Aurora 1.015 Urine Protein 1+ H Urine Glucose (UA) 250 H Urine Ketones NEG Urine Blood 1+ H Urine Nitrite NEG Ur Leukocyte Esterase NEG Impressions Abdomen Ultrasound 11/23/20 11:49 IMPRESSION: No cholelithiasis, gallbladder wall thickening, or pericholecystic free fluid to suggest acute cholecystitis. CT A/P 11/21/20 No acute findings of the abdomen or pelvis. Nonobstructing 0.3 cm left lower pole renal calculus. Fused sacroiliac joints.? Imaging Radiologist's Impressions: Impressions Abdomen Ultrasound 11/23/20 11:49 IMPRESSION: No cholelithiasis, gallbladder wall thickening, or pericholecystic free fluid to suggest acute cholecystitis. Assessment and Plan (1) Intractable nausea and vomiting: Status: Acute (2) Olecranon bursitis of left elbow: Status: Acute (3) Staphylococcus aureus bacteremia: Status: Acute (4) Hypertensive urgency: Status: Acute 50yo M with IDDM, HTN, HLD, and CAD who was recently hospitalized here 11/09-11/17/20 for sepsis due to left olecranon bursitis complicated by MSSA bacte remia, presenting with epigastric pain and intractable nausea and vomiting, and hypertensive urgency # nausea/vomiting/abdominal pain - admit to M/S under observation status, give IV fluid hydration, prn ondansetron + promethazine, GI consult, IV PPI, sucralfate, NM gastric emptying study to r/o gastroparesis # mild transaminasemia [AST] # mild leukocytosis - ?reactive. no sign of infection. recheck CBC + LFTs in am. screen for chronic HBV/HCV # mild renal insufficiency - not quite meeting criteria for TJ' will give IV fluid hydration # HTN urgency - resume home lisinopril, add amlodipine # MSSA bacteremia, olecranon bursitis - continue IV cefazolin # CAD # HLD - continue statin, ASA # DM2, A1c 7.4 (11/18/20) - basal/bolus insulin; hold MTF # neuropathy - continue gabapentin # mood disorder - continue bupropion, venlafaxine, aripiprazole, trazodone, prazosin # tobacco abuse - NRT # VTE ppx - LMWH Quality Stroke Does the patient have a stroke diagnosis?: No VTE Prior VTE?: No VTE Risk Level:: Medical - moderate - high VTE Device Contraindication: N/A - Device Ordered VTE Drug Contraindication: N/A - Med Ordered
[2020-11-23 15:17] LABS: COVID-19 Test Negative (Negative)
[2020-11-23 15:34] LABS: Amorphous Sediment Urine TRACE /LPF; Mucus Urine TRACE /LPF; Squamous Epithelial Cell Urine 1+ /LPF
[2020-11-23 15:35] LABS: Bacteria Urine TRACE /LPF; WBC Urine 0 /HPF (0-4)
[2020-11-23 15:44] VITALS: BP 216/104; PULSE 89; RESP 16; TEMP 35.8
[2020-11-23 15:58] LABS: Glucose, Whole Blood 174 mg/dL (60-115)
[2020-11-23 16:21] LABS: Amphetamine Screen Urine Not Detected (Not Detect); Barbiturates, Urine Not Detected (Not Detect); Benzodiazepines Screen Urine Not Detected (Not Detect); Cannabinoid Screen Urine Not Detected (Not Detect); Cocaine Screen Urine Not Detected (Not Detect); Fentanyl, urine POSITIVE (Not Detect); Opiate Screen Urine POSITIVE (Not Detect); Phencyclidine Screen Urine Not Detected (Not Detect)
[2020-11-23] MEDS: Metoclopramide HCl 10 MG/2 ML VIAL IVPUSH (16:48)
[2020-11-23 16:50] VITALS: BP 216/114
[2020-11-23] MEDS: amLODIPine Besylate 10 MG TABLET PO (16:50)
[2020-11-23] MEDS: Cholecalciferol (Vitamin D3) 25 MCG TABLET 50 MCG PO (17:32)
[2020-11-23] MEDS: Pantoprazole Sodium 40 MG/10 ML VIAL IVPUSH (17:32)
[2020-11-23] MEDS: ceFAZolin Sodium/Dextrose,Iso 2 GM/50 ML PIGGYBACK IV ×2 (17:32→23:38)
[2020-11-23] MEDS: Enoxaparin Sodium 40 MG/0.4 ML SYRINGE SUBCUT (17:33)
[2020-11-23] MEDS: 0.9 % Sodium Chloride Flush 3 ML SYRINGE IVFLUSH (17:33)
[2020-11-23 17:37] LABS: Glucose, Whole Blood 183 mg/dL (60-115)
[2020-11-23] MEDS: Lactated Ringers 1,000 ML 125 ML IVCONT ×2 (18:41→23:39)
--- NOTE | 2020-11-23 19:15 | PC.NURSE ---
RN assumed care at 1900. Pt alert and oriented x4, clam and cooperative. Pt states 4/10 abd pain at this time and intermittent nausea persists. Pt denies vomiting at this time. IV intact infusing fluids. Pt resting in stretcher without complaints at this time, will continue to monitor.
[2020-11-23 19:54] VITALS: BP 192/88; PULSE 72; RESP 16; TEMP 36.9; O2SAT 99
[2020-11-23] MEDS: traZODone HCL 100 MG TABLET PO (21:51)
[2020-11-23] MEDS: Sucralfate 1 GM TABLET PO (21:52)
[2020-11-23] MEDS: hydrOXYzine HCL 25 MG TABLET PO (21:52)
[2020-11-23] MEDS: Gabapentin 600 MG TABLET PO (21:52)
[2020-11-23] MEDS: Atorvastatin Calcium 80 MG TABLET PO (21:52)
[2020-11-23 22:02] LABS: Glucose, Whole Blood 174 mg/dL (60-115)
[2020-11-23] MEDS: Prazosin HCL 1 MG CAPSULE 2 MG PO (22:45)
[2020-11-24] VITALS (14 sets, daily range): BP systolic 123–195; BP diastolic 76–106; PULSE 84–106; RESP 16–19; TEMP 36.9–37.4; O2SAT 97–100; BMI 28.4
[2020-11-24] MEDS: Pantoprazole Sodium 40 MG/10 ML VIAL IVPUSH (05:47)
[2020-11-24 06:59] LABS: Hematocrit 38.4 % (42-52); Hemoglobin 13.4 g/dl (14.0-18.0); Mean Corpuscular HGB Conc 34.9 g/dl (31.0-36.0); Mean Corpuscular Hemoglobin 32.2 pg (27.0-33.0); Mean Corpuscular Volume 92.3 fL (80-98); Mean Platelet Volume 10.7 fL (9.4-12.4); Platelet Count 278 X10*3/uL (160-400); Red Blood Count 4.16 X10*6/uL (4.60-5.80); Red Cell Distribution Width 12.3 % (11.0-16.0); White Blood Count 12.3 X10*3/uL (4.8-10.8)
[2020-11-24 07:06] LABS: Alanine Aminotransferase 29 U/L (0-40); Albumin Level 3.7 g/dL (3.5-5.0); Alkaline Phosphatase 106 U/L (39-117); Anion Gap 12 (12-20); Aspartate Amino Transferase 43 U/L (5-37); Bilirubin Direct 0.4 mg/dL (0.0-0.5); Blood Urea Nitrogen 22 mg/dL (9-16); Calcium 8.7 mg/dL (8.4-10.2); Carbon Dioxide 26 mmol/L (22-29); Chloride 104 mmol/L (96-108); Creatinine Clr Calc Pharmacy 73.2; Estimated Glomerular Filt Rate > 60; Glucose Random 186 mg/dL (60-115); Potassium 3.6 mmol/L (3.3-5.1); Sodium 138 mmol/L (135-145); Total Protein 7.4 g/dL (6.5-8.0)
[2020-11-24 07:25] LABS: HBS Num1 2.42 mIU/mL (0-7.99); HBc Num1 0.06 S/CO (0.00-0.79); Hepatitis B Core Antibody Nonreactive (Nonreactive); ~Hepatitis B Surface Antibody NONREACTIVE (Nonreactive)
[2020-11-24 07:26] LABS: HBsAGNum1 0.79 S/CO (0.00-0.99); Hepatitis B Surface Antigen Negative (Negative); ~HepC Num1 0.11 S/CO (0.00-0.79); ~Hepatitis C Antibody Nonreactive (Nonreactive)
[2020-11-24] MEDS: ceFAZolin Sodium/Dextrose,Iso 2 GM/50 ML PIGGYBACK IV ×2 (07:27→18:21)
[2020-11-24] MEDS: 0.9 % Sodium Chloride Flush 3 ML SYRINGE IVFLUSH ×2 (07:28→18:22)
[2020-11-24] MEDS: Morphine Sulfate 4 MG/ML CARTRIDGE IVPUSH ×3 (07:33→18:21)
--- NOTE | 2020-11-24 08:04 | P.CNGI_ITS ---
History of Present Illness Data of Consult Service Date: 11/24/20 Requesting physician: Cyndy Bynum Primary Care Provider: Unknown Physician HPI Reason for consult: Abdominal pain, nausea and vomiting 50 YM seen at [facility] yesterday: HPI narrative: 50-year-old male came in for evaluation of upper abdominal pain. Pain started 4 days ago, described as sharp constant pain in the upper epigastric/right upper quadrant area, pain is constant, no radiation, seems food aggravate the pain, nothing relieves the pain, pain is associated with nausea and vomiting, no diarrhea last bowel movement was 2 days ago with passing gas, patient was seen and evaluated in the emergency department for same pain 2 days ago, patient had CT of the abdomen and pelvis which shows no acute findings. Of note patient have a PICC line for left olecranon septic bursitis patient received cefazolin IV antibiotic via the PICC line. Pt complains of 10/10 epigastric pain with chills, nausea and vomiting since Saturday (11/21/20). He denies radiation of the pain to the back or shoulders. Patient complains of chronic diarrhea (without blood or mucous) since last January which is sometimes explosive. He uses a diaper stool prevent an accident. Patient also admits to decreased appetite and thinks he has lost weight. Patient admits to history of Cocaine, EtOH abuse in smoking - none for the past 2 weeks. Patient has a hx of CO - cardiac cath was negative in 2012. Pt has sleep apnea and is waiting for a new CPAP machine Denies problems with anesthesia in the past. Denies being on chronic anticoagulation. He admits to taking Ibuprofen recently. Patient denies known family history of IBD, colon polyps, colon cancer or other GI malignancies. IMAGING STUDIES: 11/21/[address] SCAN SHOWED: No acute findings of the abdomen or pelvis. Nonobstructing 0.3 cm left lower pole renal calculus. Fused sacroiliac joints.? ENDOSCOPIC STUDIES: None in [facility] Review of Systems Constitutional: Constitutional: Denies fever(s), Denies headache(s) and Denies weight loss Eyes: Eyes: Denies eye discharge and Denies irritation ENT: Reports Normal hearing present, Denies dysphagia, Denies dizziness and Denies headache(s) Cardiovascular: Cardiovascular: Denies chest pain, Denies leg edema and Denies dyspnea on exertion Respiratory: Respiratory: Denies cough, Denies dyspnea on exertion and Denies wheezing Gastrointestinal: Gastrointestinal: Denies abdominal pain, Denies change in bowel habits, Denies dysphagia and Denies heartburn Genitourinary: Genitourinary: Denies dysuria Musculoskeletal: Musculoskeletal: Denies back pain and Denies arthralgias Integumentary/Breasts: Skin/Breast: Denies pruritus, Denies rash and Denies jaundice Neurologic: Reports Normal hearing present, Denies Abnormal speech present, Denies dizziness, Denies headache(s) and Denies seizure-like activity Psychiatric: Psychiatric: Denies anxiety, Denies depression and Denies panic attacks Endocrine: Endocrine: Denies cold intolerance, Denies flushing and Denies heat intolerance Hematologic/Lymphatic: Hematologic/Lymphatic: Denies easy bleeding and Denies easy bruising Allergic/Immunologic: Allergic/Immunologic: Denies wheezing PMFSH Past Medical History Medical History Anxiety Arthritis Depression Diabetes Essential hypertension High cholesterol High cholesterol History of myocardial infarction HTN (hypertension) Hyperlipidemia LDL goal <70 Normal echocardiogram Type 2 diabetes mellitus with unspecified complications Family History Family History Mother Alzheimer disease HTN (hypertension) Father Old age Brother Diabetes mellitus Maternal Grandmother Diabetes mellitus Heart disease Surgical History Surgical History H/O cardiac catheterization History of appendectomy Hx of foot surgery Social History Social History (System 11/25/20 @ 13:40 by Bernice Quintero) Household Members: Family and Friend(s) Household Members Other:: Roommate Housing: House Do you presently have visiting nurse or other home services: No Alcohol intake: current Alcohol intake frequency: does not drink Patient Tobacco Use Status: Former Tobacco user Tobacco use type: Cigarette Second Hand Smoke Exposure: No Substance Use Type: Crack/Cocaine and Other service: No Current occupational status: unemployed and disabled Meds Allergies Allergy/AdvReac Type Severity Reaction Status Date / Time No Known Allergies Allergy Unverified 11/25/20 13:40 [No Known Allergies*] Active Medications: Current Medications Acetaminophen (Acetaminophen 325 Mg Tablet) 650 mg PO Q6H PRN PRN Reason: Pain, Mild (Pain Scale 1-3) Amlodipine Besylate (Amlodipine Besylate 10 Mg Tablet) 10 mg PO DAILY [facility]; Protocol Last Admin: 11/23/20 16:50 Dose: 10 mg Documented by: Aripiprazole (Aripiprazole 15 Mg Tablet) 15 mg PO DAILY [facility] Aspirin (Aspirin Enteric Coated 81 Mg Tablet.Dr) 81 mg PO DAILY [facility] Atorvastatin Calcium (Atorvastatin Calcium 80 Mg Tablet) 80 mg PO BEDTIME [facility] Last Admin: 11/23/20 21:52 Dose: 80 mg Documented by: Bupropion HCl (Bupropion Hcl Xl 300 Mg Tab.Er.24h) 300 mg PO DAILY [facility] Dextrose (Dextrose 50 % 25 Gm/50 Ml Vial) 25 gm IVPUSH Q15M PRN; Protocol PRN Reason: per Hypoglycemia Standing Ord. Enoxaparin Sodium (Enoxaparin Sodium 40 Mg/0.4 Ml Syringe) 40 mg SUBCUT Q24H [facility] Last Admin: 11/23/20 17:33 Dose: 40 mg Documented by: Gabapentin (Gabapentin 600 Mg Tablet) 600 mg PO TID [facility] Last Admin: 11/23/20 21:52 Dose: 600 mg Documented by: Glucose (Glucose Gel 15 Gm Gel..Gram.) 15 gm PO Q15M PRN; Protocol PRN Reason: per Hypoglycemia Standing Ord. Hydroxyzine HCl (Hydroxyzine Hcl 25 Mg Tablet) 25 mg PO BEDTIME [facility] Last Admin: 11/23/20 21:52 Dose: 25 mg Documented by: Cefazolin Sodium/Dextrose (Ancef) 2 gm in 50 mls @ 100 mls/hr IV Q8H [facility] Last Admin: 11/24/20 07:27 Dose: 100 mls/hr Documented by: Promethazine HCl 12.5 mg/ (Sodium Chloride) 50.5 mls @ 202 mls/hr IV Q4H PRN PRN Reason: n/V not relieved by ZOfran Lactated Ringer's (Lr) 1,000 mls @ 125 mls/hr IVCONT .Q8H [facility] Last Admin: 11/23/20 23:39 Dose: 125 mls/hr Documented by: Insulin Glargine (Insulin Glargine,Hum.Rec.Anlog 100 Unit/Ml 10 Ml Vial) 20 unit SUBCUT BEDTIME [facility] Last Admin: 11/23/20 22:43 Dose: Not Given Documented by: Insulin Human Lispro (Insulin Lispro 100 Unit/Ml 3 Ml Vial) 0 unit SUBCUT QIDACHS [facility]; Protocol Last Admin: 11/23/20 22:42 Dose: Not Given Documented by: Lisinopril (Lisinopril 5 Mg Tablet) 5 mg PO DAILY [facility]; Protocol Morphine Sulfate (Morphine Sulfate 4 Mg/Ml Cartridge) 4 mg IVPUSH Q4H PRN; Protocol PRN Reason: Pain, Severe (Pain Scale 7-10) Last Admin: 11/24/20 07:33 Dose: 4 mg Documented by: Nicotine (Nicotine 21 Mg Patch.Td24) 21 mg TRANSDERMA DAILY [facility] Nitroglycerin (Nitroglycerin 0.4 Mg Tab.Subl) 0.4 mg SUBLINGUAL Q5M PRN PRN Reason: Angina Pantoprazole Sodium (Pantoprazole Sodium 40 Mg/10 Ml Vial) 40 mg IVPUSH BID@0630,1630 [facility] Last Admin: 11/24/20 05:47 Dose: 40 mg Documented by: Pharmacy Consult (Consult Rx Perform Med Rec) 1 each MISCELLANE ONCE PRN PRN Reason: Consult order Prazosin HCl (Prazosin Hcl 1 Mg Capsule) 2 mg PO BEDTIME [facility]; Protocol Last Admin: 11/23/20 22:45 Dose: 2 mg Documented by: Sodium Chloride (0.9 % Sodium Chloride Flush 3 Ml Syringe) 3 ml IVFLUSH QSHIFT [facility] Last Admin: 11/24/20 07:28 Dose: 3 ml Documented by: Sucralfate (Sucralfate 1 Gm Tablet) 1 gm PO TID [facility] Last Admin: 11/23/20 21:52 Dose: 1 gm Documented by: Trazodone HCl (Trazodone Hcl 100 Mg Tablet) 100 mg PO BEDTIME [facility] Last Admin: 11/23/20 21:51 Dose: 100 mg Documented by: Venlafaxine HCl (Venlafaxine Hcl Er 75 Mg Cap.Er.24h) 75 mg PO DAILY [facility] Venlafaxine HCl (Venlafaxine Hcl Er 150 Mg Cap.Er.24h) 150 mg PO DAILY [facility] Vitamin D (Cholecalciferol (Vitamin D3) 25 Mcg Tablet) 50 mcg PO DAILY [facility] Last Admin: 11/23/20 17:32 Dose: 50 mcg Documented by: Home Medications Medication Instructions Recorded Confirmed Last Taken Type aripiprazole 15 mg tablet 15 mg PO DAILY 07/20/20 11/23/20 Unknown History bupropion HCl 300 mg 24 hr tablet, 300 mg PO DAILY 07/20/20 11/23/20 Unknown History extended release lancets 33 gauge #100 ea 07/20/20 11/08/20 Unknown History pen needle, diabetic 32 gauge x #50 ea 07/20/20 11/08/20 Unknown History trazodone 100 mg tablet 100 mg PO BEDTIME 07/20/20 11/23/20 Unknown History venlafaxine 150 mg 150 mg PO DAILY 07/20/20 11/23/20 Unknown History capsule,extended release 24 hr cholecalciferol (vitamin D3) 50 50 mcg PO QAM 11/03/20 11/23/20 Unknown History mcg (2,000 unit) capsule gabapentin 600 mg tablet 1 tab PO TID 11/09/20 11/23/20 Unknown History hydroxyzine pamoate 25 mg capsule 1 cap PO BEDTIME 11/09/20 11/23/20 Unknown History metformin 500 mg tablet,extended 2 tab PO BID 11/09/20 11/23/20 Unknown History release 24 hr nitroglycerin 0.3 mg sublingual 1 tab SUBLINGUAL USEASDIRECTD 11/09/20 11/23/20 Unknown History tablet prazosin 2 mg capsule 1 cap PO BEDTIME 11/09/20 11/23/20 Unknown History venlafaxine 75 mg capsule,extended 75 mg PO DAILY 11/09/20 11/23/20 Unknown History release 24 hr Physical Exam Vital Signs: Vital Signs: Last Vital Signs Temp 98.6 F 11/24/20 05:55 Pulse 100 11/24/20 07:37 Resp 19 11/24/20 07:37 BP 192/100 H 11/24/20 07:37 Pulse Ox 100 11/24/20 07:37 Body Mass Index 27.2 Const: General: healthy appearing and in distress (due to pain and repeated vomiting) Nutritional Appearance: overweight Orientation/consciousness: patient oriented x3 Limitations: no limitations HENMT: Head: Yes normal to inspection Ears: hearing grossly normal bilaterally Mouth: Normal oral and palatal mucosa present Eyes: Sclerae: sclerae normal Pupils: Equal, round and reactive pupils present Neck: Neck: Yes normal visual inspection Chest: Chest palpation & inspection: normal inspection of the chest Resp: Effort & Inspection: normal respiratory effort Auscultation: clear to auscultation bilaterally Cardio: Palpation: normal PMI Rate: regular rate Rhythm: regular rhythm Heart sounds: S1 normal heart sound present, S2 normal heart sound present and no murmurs GI: Palpation (GI): Soft to palpation, Tenderness to palpation present (GI) (Mild epigastric tenderness without rebound) and No hepatosplenomegaly present Auscultation: normal bowel sounds Rectal Exam - Male: Yes deferred Skin: General skin exam: no rashes or lesions noted Neuro: General: patient oriented x3, gait normal and moves all extremities Cranial nerves: Yes Equal, round and reactive pupils present and Yes Normal hearing present Speech: No Abnormal speech present Psych: Appearance: grossly normal Mental Status: mental status grossly norm al Results Labs CBC & Chem 7: 11/25/20 08:25 11/25/20 08:25 Labs: Short CBC 11/23/20 11/24/20 Range/Units 12:36 06:44 WBC 15.7 H 12.3 H (4.8-10.8) X10*3/uL Hgb 14.2 13.4 L (14.0-18.0) g/dl Hct 39.9 L 38.4 L (42-52) % Plt Count 306 278 (160-400) X10*3/uL BMP 11/23/20 11/24/20 12:36 06:44 Sodium 137 138 Potassium 3.6 D 3.6 Chloride 102 104 Carbon Dioxide 23 26 BUN 27 H D 22 H Creatinine 1.46 H 1.26 Calcium 9.1 8.7 Liver Function 11/23/20 11/24/20 Range/Units 12:36 06:44 Total Bilirubin 1.0 1.0 (0.0-1.0) mg/dL Direct Bilirubin 0.4 0.4 (0.0-0.5) mg/dL AST 51 H 43 H (5-37) U/L ALT 28 29 (0-40) U/L Alkaline Phosphatase 117 106 (39-117) U/L Albumin 4.1 3.7 (3.5-5.0) g/dL Urine 11/23/20 Range/Units 14:40 Urine Color YELLOW Urine Appearance CLEAR Urine pH 6.0 (5.0-8.0) Ur Specific [place] 1.015 (1.005-1.025) Urine Protein 1+ H (NEG-TRACE) MG/DL Urine Glucose (UA) 250 H (NEG) MG/DL Assessment and Plan (1) Intractable nausea and vomiting: Status: Acute (2) Chronic diarrhea: Status: Acute (3) Epigastric pain: Status: Acute 50-year-old [place]-speaking male with epigastric pain, recurrent nausea and vomiting. Symptoms can be due to PUD, gastritis or erosive esophagitis. Patient also gives history of chronic diarrhea for the past year. RECOMMENDATIONS: Proceed with upper endoscopy today. Procedure and potential complications including bleeding, perforation, drug reaction and aspiration were reviewed with the patient with the help of a automotive parts interpreter. Pt has a FU appt with Dr Neal on 01/24/21 for Fu of chronic diarrhea. Procedures Date of Service Date of Service: 11/24/20
--- NOTE | 2020-11-24 08:12 | PC.NURSE ---
PT SHOULD BE NPO AFTER MIDNIGHT FOR TESTING IN [facility] 11/25/20
[2020-11-24] MEDS: lisinopriL 5 MG TABLET PO (08:58)
[2020-11-24] MEDS: amLODIPine Besylate 10 MG TABLET PO (08:59)
[2020-11-24 09:09] LABS: Glucose, Whole Blood 191 mg/dL (60-115)
[2020-11-24] MEDS: lisinopriL 10 MG TABLET PO (09:36)
--- NOTE | 2020-11-24 09:40 | PC.NURSE ---
per hospitalist who was at bedside, bp meds given and the rest of the meds held
[2020-11-24] MEDS: Lactated Ringers 1,000 ML 125 ML IVCONT (09:42)
--- NOTE | 2020-11-24 10:39 | PM.CNCAR ---
History of Present Illness History of Present Illness Date of Service: 11/24/20 Requesting physician: Shilpa Arellano Chief complaint: Elevated blood pressure Narrative: Pleasant 50 gentleman with background history of insulin-dependent diabetes mellitus, hypertension, hyperlipidemia and coronary disease who was recently hospitalized with sepsis due to left olecranon bursitis and bacteremia. He was discharged home on PICC line and came back with epigastric discomfort. He has severe pain in the epigastric region and has been seen by GI and will be undergoing endoscopy. Denies any chest discomfort shortness of breath. His blood pressure was elevated. Unclear whether he took his medications at home. He is saying he threw up but unsure whether the medications were in the vomitus. In the ER his blood pressure was elevated. He was given IV fluids and Reglan along with the Zofran and morphine for abdominal pain. He is waiting to undergo endoscopy. Review of Systems Review of Systems: Epigastric pain Yes all other systems are reviewed and are negative PMFSH Past Medical History Medical History Anxiety Arthritis Depression Diabetes Essential hypertension High cholesterol High cholesterol History of myocardial infarction HTN (hypertension) Hyperlipidemia LDL goal <70 Normal echocardiogram Type 2 diabetes mellitus with unspecified complications Family History Family History Mother Alzheimer disease HTN (hypertension) Father Old age Brother Diabetes mellitus Maternal Grandmother Diabetes mellitus Heart disease Surgical History Surgical History H/O cardiac catheterization History of appendectomy Hx of foot surgery Social History Social History Household Members: Friend(s) Household Members Other:: Roommate Housing: House Do you presently have visiting nurse or other home services: No Alcohol intake: current Alcohol intake frequency: does not drink Patient Tobacco Use Status: Current everyday Tobacco user Tobacco use type: Cigarette Second Hand Smoke Exposure: No Substance Use Type: Crack/Cocaine and Other service: No Current occupational status: disabled Meds Allergies Allergy/AdvReac Type Severity Reaction Status Date / Time No Known Allergies Allergy Unverified 11/07/20 21:24 [No Known Allergies*] Active Medications: Current Medications Acetaminophen (Acetaminophen 325 Mg Tablet) 650 mg PO Q6H PRN PRN Reason: Pain, Mild (Pain Scale 1-3) Amlodipine Besylate (Amlodipine Besylate 10 Mg Tablet) 10 mg PO DAILY [facility]; Protocol Last Admin: 11/24/20 08:59 Dose: 10 mg Documented by: Aripiprazole (Aripiprazole 15 Mg Tablet) 15 mg PO DAILY [facility] Last Admin: 11/24/20 09:38 Dose: Not Given Documented by: Aspirin (Aspirin Enteric Coated 81 Mg Tablet.Dr) 81 mg PO DAILY [facility] Last Admin: 11/24/20 09:39 Dose: Not Given Documented by: Atorvastatin Calcium (Atorvastatin Calcium 80 Mg Tablet) 80 mg PO BEDTIME [facility] Last Admin: 11/23/20 21:52 Dose: 80 mg Documented by: Bupropion HCl (Bupropion Hcl Xl 300 Mg Tab.Er.24h) 300 mg PO DAILY [facility] Last Admin: 11/24/20 09:39 Dose: Not Given Documented by: Dextrose (Dextrose 50 % 25 Gm/50 Ml Vial) 25 gm IVPUSH Q15M PRN; Protocol PRN Reason: per Hypoglycemia Standing Ord. Gabapentin (Gabapentin 600 Mg Tablet) 600 mg PO TID [facility] Last Admin: 11/24/20 09:38 Dose: Not Given Documented by: Glucose (Glucose Gel 15 Gm Gel..Gram.) 15 gm PO Q15M PRN; Protocol PRN Reason: per Hypoglycemia Standing Ord. Hydroxyzine HCl (Hydroxyzine Hcl 25 Mg Tablet) 25 mg PO BEDTIME [facility] Last Admin: 11/23/20 21:52 Dose: 25 mg Documented by: Cefazolin Sodium/Dextrose (Ancef) 2 gm in 50 mls @ 100 mls/hr IV Q8H [facility] Last Admin: 11/24/20 07:27 Dose: 100 mls/hr Documented by: Promethazine HCl 12.5 mg/ (Sodium Chloride) 50.5 mls @ 202 mls/hr IV Q4H PRN PRN Reason: n/V not relieved by ZOfran Insulin Glargine (Insulin Glargine,Hum.Rec.Anlog 100 Unit/Ml 10 Ml Vial) 20 unit SUBCUT BEDTIME [facility] Last Admin: 11/23/20 22:43 Dose: Not Given Documented by: Insulin Human Lispro (Insulin Lispro 100 Unit/Ml 3 Ml Vial) 0 unit SUBCUT QIDACHS [facility]; Protocol Last Admin: 11/24/20 09:41 Dose: Not Given Documented by: Lisinopril (Lisinopril 10 Mg Tablet) 10 mg PO DAILY [facility]; Protocol Last Admin: 11/24/20 09:36 Dose: 10 mg Documented by: Morphine Sulfate (Morphine Sulfate 4 Mg/Ml Cartridge) 4 mg IVPUSH Q4H PRN; Protocol PRN Reason: Pain, Severe (Pain Scale 7-10) Last Admin: 11/24/20 07:33 Dose: 4 mg Documented by: Nicotine (Nicotine 21 Mg Patch.Td24) 21 mg TRANSDERMA DAILY [facility] Last Admin: 11/24/20 09:39 Dose: Not Given Documented by: Nitroglycerin (Nitroglycerin 0.4 Mg Tab.Subl) 0.4 mg SUBLINGUAL Q5M PRN PRN Reason: Angina Pantoprazole Sodium (Pantoprazole Sodium 40 Mg/10 Ml Vial) 40 mg IVPUSH BID@0630,1630 [facility] Last Admin: 11/24/20 05:47 Dose: 40 mg Documented by: Pharmacy Consult (Consult Rx Perform Med Rec) 1 each MISCELLANE ONCE PRN PRN Reason: Consult order Prazosin HCl (Prazosin Hcl 1 Mg Capsule) 2 mg PO BEDTIME [facility]; Protocol Last Admin: 11/23/20 22:45 Dose: 2 mg Documented by: Sodium Chloride (0.9 % Sodium Chloride Flush 3 Ml Syringe) 3 ml IVFLUSH QSHIFT [facility] Last Admin: 11/24/20 07:28 Dose: 3 ml Documented by: Sucralfate (Sucralfate 1 Gm Tablet) 1 gm PO TID [facility] Last Admin: 11/24/20 09:38 Dose: Not Given Documented by: Trazodone HCl (Trazodone Hcl 100 Mg Tablet) 100 mg PO BEDTIME [facility] Last Admin: 11/23/20 21:51 Dose: 100 mg Documented by: Venlafaxine HCl (Venlafaxine Hcl Er 75 Mg Cap.Er.24h) 75 mg PO DAILY [facility] Last Admin: 11/24/20 09:39 Dose: Not Given Documented by: Venlafaxine HCl (Venlafaxine Hcl Er 150 Mg Cap.Er.24h) 150 mg PO DAILY [facility] Last Admin: 11/24/20 09:39 Dose: Not Given Documented by: Vitamin D (Cholecalciferol (Vitamin D3) 25 Mcg Tablet) 50 mcg PO DAILY [facility] Last Admin: 11/24/20 09:38 Dose: Not Given Documented by: Home Medications Medication Instructions Recorded Confirmed Last Taken Type aripiprazole 15 mg tablet 15 mg PO DAILY 07/20/20 11/23/20 Unknown History bupropion HCl 300 mg 24 hr tablet, 300 mg PO DAILY 07/20/20 11/23/20 Unknown History extended release lancets 33 gauge #100 ea 07/20/20 11/08/20 Unknown History omeprazole 20 mg capsule,delayed 20 mg PO DAILY 07/20/20 11/23/20 Unknown History release pen needle, diabetic 32 gauge x #50 ea 07/20/20 11/08/20 Unknown History trazodone 100 mg tablet 100 mg PO BEDTIME 07/20/20 11/23/20 Unknown History venlafaxine 150 mg 150 mg PO DAILY 07/20/20 11/23/20 Unknown History capsule,extended release 24 hr cholecalciferol (vitamin D3) 50 50 mcg PO QAM 11/03/20 11/23/20 Unknown History mcg (2,000 unit) capsule gabapentin 600 mg tablet 1 tab PO TID 11/09/20 11/23/20 Unknown History hydroxyzine pamoate 25 mg capsule 1 cap PO BEDTIME 11/09/20 11/23/20 Unknown History metformin 500 mg tablet,extended 2 tab PO BID 11/09/20 11/23/20 Unknown History release 24 hr nitroglycerin 0.3 mg sublingual 1 tab SUBLINGUAL USEASDIRECTD 11/09/20 11/23/20 Unknown History tablet prazosin 2 mg capsule 1 cap PO BEDTIME 11/09/20 11/23/20 Unknown History venlafaxine 75 mg capsule,extended 75 mg PO DAILY 11/09/20 11/23/20 Unknown History release 24 hr Physical Exam Vital Signs: Vital Signs: Last Vital Signs Temp 98.6 F 11/24/20 05:55 Pulse 100 11/24/20 09:36 Resp 19 11/24/20 07:37 BP 190/100 H 11/24/20 09:36 Pulse Ox 100 11/24/20 07:37 Body Mass Index 27.2 GENERAL APPEARANCE: Distress due to abdominal pain NECK: no carotid bruit, no jugular venous distention. SKIN: no suspicious lesions, warm and dry. HEART: no murmurs, regular rate and rhythm. LUNGS: clear to auscultation bilaterally. ABDOMEN: Epigastric tenderness, abdomen is soft otherwise. PERIPHERAL PULSES: equal. NEUROLOGIC: No gross deficits, AAO X 3 Results Labs and Meds Result diagrams: 11/24/20 06:44 11/24/20 06:44 Lab results: Laboratory Results - last 24 hr 11/23/20 11/23/20 11/23/20 12:36 12:36 12:36 WBC 15.7 H RBC 4.37 L Hgb 14.2 Hct 39.9 L MCV 91.3 MCH 32.5 MCHC 35.6 RDW 12.3 Plt Count 306 MPV 10.7 Immature Gran % (Auto) 0.4 Neut % (Auto) 64.1 Lymph % (Auto) 27.0 [place] % (Auto) 8.1 Eos % (Auto) 0.0 Baso % (Auto) 0.4 Lymph # (Auto) 4.3 [place] # (Auto) 1.3 H Eos # (Auto) 0.0 Baso # (Auto) 0.1 Abs Immat Gran (auto) 0.07 H Absolute Neuts (auto) 10.1 H Absolute Nucleated RBC 0.000 Nucleated RBC % (auto) 0.0 Sodium 137 Potassium 3.6 D Chloride 102 Carbon Dioxide 23 Anion Gap 16 BUN 27 H D Creatinine 1.46 H Estim Creat Clear Calc 63.1 Estimated GFR 51 POC Glucose Random Glucose 196 H D Calcium 9.1 Magnesium Total Bilirubin 1.0 Direct Bilirubin 0.4 AST 51 H ALT 28 Alkaline Phosphatase 117 Troponin I High Sens 7.5 D Total Protein 8.3 H Albumin 4.1 Lipase 30 Urine Color Urine Appearance Urine pH Ur Specific [place] Urine Protein Urine Glucose (UA) Urine Ketones Urine Blood Urine Nitrite Ur Leukocyte Esterase Urine RBC Urine WBC Ur Squamous Epith Cells Amorphous Sediment Urine Bacteria Urine Mucus Urine Opiates Screen Urine Fentanyl Screen Ur Barbiturates Screen Ur Phencyclidine Scrn Ur Amphetamines Screen U Benzodiazepines Scrn Urine Cocaine Screen U Marijuana (THC) Screen COVID-19 (DANIEL) COVID-19 Clin Com Hep Bs Antigen Hep Bs Antibody Hep B Core Total Ab Hepatitis C Ab (EIA) 11/23/20 11/23/20 11/23/20 14:40 14:40 14:40 WBC RBC Hgb Hct MCV MCH MCHC RDW Plt Count MPV Immature Gran % (Auto) Neut % (Auto) Lymph % (Auto) [place] % (Auto) Eos % (Auto) Baso % (Auto) Lymph # (Auto) [place] # (Auto) Eos # (Auto) Baso # (Auto) Abs Immat Gran (auto) Absolute Neuts (auto) Absolute Nucleated RBC Nucleated RBC % (auto) Sodium Potassium Chloride Carbon Dioxide Anion Gap BUN Creatinine Estim Creat Clear Calc Estimated GFR POC Glucose Random Glucose Calcium Magnesium Total Bilirubin Direct Bilirubin AST ALT Alkaline Phosphatase Troponin I High Sens Total Protein Albumin Lipase Urine Color YELLOW Urine Appearance CLEAR Urine pH 6.0 Ur Specific [place] 1.015 Urine Protein 1+ H Urine Glucose (UA) 250 H Urine Ketones NEG Urine Blood 1+ H Urine Nitrite NEG Ur Leukocyte Esterase NEG Urine RBC 1-4 Urine WBC 0 Ur Squamous Epith Cells 1+ Amorphous Sediment TRACE Urine Bacteria TRACE Urine Mucus TRACE Urine Opiates Screen POSITIVE H Urine Fentanyl Screen POSITIVE H Ur Barbiturates Screen Not Detected Ur Phencyclidine Scrn Not Detected Ur Amphetamines Screen Not Detected U Benzodiazepines Scrn Not Detected Urine Cocaine Screen Not Detected U Marijuana (THC) Screen Not Detected COVID-19 (ADNIEL) Negative COVID-19 Clin Com See Note Hep Bs Antigen Hep Bs Antibody Hep B Core Total Ab Hepatitis C Ab (EIA) 11/23/20 11/23/20 11/23/20 15:54 17:31 21:59 WBC RBC Hgb Hct MCV MCH MCHC RDW Plt Count MPV Immature Gran % (Auto) Neut % (Auto) Lymph % (Auto) [place] % (Auto) Eos % (Auto) Baso % (Auto) Lymph # (Auto) [place] # (Auto) Eos # (Auto) Baso # (Auto) Abs Immat Gran (auto) Absolute Neuts (auto) Absolute Nucleated RBC Nucleated RBC % (auto) Sodium Potassium Chloride Carbon Dioxide Anion Gap BUN Creatinine Estim Creat Clear Calc Estimated GFR POC Glucose 174 H 183 H 174 H Random Glucose Calcium Magnesium Total Bilirubin Direct Bilirubin AST ALT Alkaline Phosphatase Troponin I High Sens Total Protein Albumin Lipase Urine Color Urine Appearance Urine pH Ur Specific [place] Urine Protein Urine Glucose (UA) Urine Ketones Urine Blood Urine Nitrite Ur Leukocyte Esterase Urine RBC Urine WBC Ur Squamous Epith Cells Amorphous Sediment Urine Bacteria Urine Mucus Urine Opiates Screen Urine Fentanyl Screen Ur Barbiturates Screen Ur Phencyclidine Scrn Ur Amphetamines Screen U Benzodiazepines Scrn Urine Cocaine Screen U Marijuana (THC) Screen COVID-19 (DANIEL) COVID-19 Clin Com Hep Bs Antigen Hep Bs Antibody Hep B Core Total Ab Hepatitis C Ab (EIA) 11/24/20 11/24/20 11/24/20 06:44 06:44 06:44 WBC 12.3 H RBC 4.16 L Hgb 13.4 L Hct 38.4 L MCV 92.3 MCH 32.2 MCHC 34.9 RDW 12.3 Plt Count 278 MPV 10.7 Immature Gran % (Auto) Neut % (Auto) Lymph % (Auto) [place] % (Auto) Eos % (Auto) Baso % (Auto) Lymph # (Auto) [place] # (Auto) Eos # (Auto) Baso # (Auto) Abs Immat Gran (auto) Absolute Neuts (auto) Absolute Nucleated RBC 0.000 Nucleated RBC % (auto) 0.0 Sodium 138 Potassium 3.6 Chloride 104 Carbon Dioxide 26 Anion Gap 12 BUN 22 H Creatinine 1.26 Estim Creat Clear Calc 73.2 Estimated GFR > 60 POC Glucose Random Glucose 186 H Calcium 8.7 Magnesium 2.0 Total Bilirubin 1.0 Direct Bilirubin 0.4 AST 43 H ALT 29 Alkaline Phosphatase 106 Troponin I High Sens Total Protein 7.4 Albumin 3.7 Lipase Urine Color Urine Appearance Urine pH Ur Specific [place] Urine Protein Urine Glucose (UA) Urine Ketones Urine Blood Urine Nitrite Ur Leukocyte Esterase Urine RBC Urine WBC Ur Squamous Epith Cells Amorphous Sediment Urine Bacteria Urine Mucus Urine Opiates Screen Urine Fentanyl Screen Ur Barbiturates Screen Ur Phencyclidine Scrn Ur Amphetamines Screen U Benzodiazepines Scrn Urine Cocaine Screen U Marijuana (THC) Screen COVID-19 (DANIEL) COVID-19 Clin Com Hep Bs Antigen Negative Hep Bs Antibody NONREACTIVE Hep B Core Total Ab Nonreactive Hepatitis C Ab (EIA) Nonreactive 11/24/20 09:03 WBC RBC Hgb Hct MCV MCH MCHC RDW Plt Count MPV Immature Gran % (Auto) Neut % (Auto) Lymph % (Auto) [place] % (Auto) Eos % (Auto) Baso % (Auto) Lymph # (Auto) [place] # (Auto) Eos # (Auto) Baso # (Auto) Abs Immat Gran (auto) Absolute Neuts (auto) Absolute Nucleated RBC Nucleated RBC % (auto) Sodium Potassium Chloride Carbon Dioxide Anion Gap BUN Creatinine Estim Creat Clear Calc Estimated GFR POC Glucose 191 H Random Glucose Calcium Magnesium Total Bilirubin Direct Bilirubin AST ALT Alkaline Phosphatase Troponin I High Sens Total Protein Albumin Lipase Urine Color Urine Appearance Urine pH Ur Specific [place] Urine Protein Urine Glucose (UA) Urine Ketones Urine Blood Urine Nitrite Ur Leukocyte Esterase Urine RBC Urine WBC Ur Squamous Epith Cells Amorphous Sediment Urine Bacteria Urine Mucus Urine Opiates Screen Urine Fentanyl Screen Ur Barbiturates Screen Ur Phencyclidine Scrn Ur Amphetamines Screen U Benzodiazepines Scrn Urine Cocaine Screen U Marijuana (THC) Screen COVID-19 (DANIEL) COVID-19 Clin Com Hep Bs Antigen Hep Bs Antibody Hep B Core Total Ab Hepatitis C Ab (EIA) Imaging Radiologist's impression: Impressions Abdomen Ultrasound 11/23/20 11:49 IMPRESSION: No cholelithiasis, gallbladder wall thickening, or pericholecystic free fluid to suggest acute cholecystitis. Assessment and Plan (1) Hypertensive urgency: Status: Acute Pleasant 50-year-old gentleman who is here for abdominal pain and epigastric tenderness. This is likely due to gastritis or peptic ulcer disease. He is in a lot of pain his blood pressure is elevated. I think the blood pressure is likely elevated due to the stress and pain. In any case his home medications should be resumed as soon as feasible. We can try some nitro paste. Given lack of symptoms I would avoid IV medications in particular IV hydralazine. If with resuming home medications blood pressure is still elevated then we will add other medications. Before adding any medications for his pain has to be better controlled. He is getting endoscopy which will clear the diagnosis. Thank you for allowing me to participate in the care of your patient. Please feel free to contact me if you have any questions. Procedures Date of Service Date of Service: 11/24/20
[2020-11-24 10:46] LABS: Glucose, Whole Blood 167 mg/dL (60-115)
--- NOTE | 2020-11-24 10:57 | MHC.CM.PN ---
Patient transferred to OR before he could be seen by case management. Continue to monitor for d/c needs.
--- NOTE | 2020-11-24 12:00 | P.CONAN_ITS ---
[facility] Active Problems Active Problems: All Active Problems (Updated 11/23/20 @ 15:13 by Cyndy Bynum MD) Hypertensive urgency (Acute) Intractable nausea and vomiting (Acute) Cellulitis (Acute) Olecranon bursitis of left elbow (Acute) Tobacco use disorder (Acute) Staphylococcus aureus bacteremia (Acute) Gram-positive cocci bacteremia (Acute) COVID-19 (Acute) Cocaine abuse (Acute) Cerebrovascular accident (Acute) Hyperlipidemia LDL goal <70 (Acute) Erectile dysfunction (Acute) Poor historian (Acute) Chronic diarrhea (Acute) Normal cardiac stress test (Acute) Sleep apnea (Acute) Normal echocardiogram (Acute) Arthritis (Acute) Anxiety (Acute) High cholesterol (Acute) COVID-19 (Acute) Past Medical History Medical History Anxiety Arthritis Depression Diabetes Essential hypertension High cholesterol High cholesterol History of myocardial infarction HTN (hypertension) Hyperlipidemia LDL goal <70 Normal echocardiogram Type 2 diabetes mellitus with unspecified complications Family History Family History Mother Alzheimer disease HTN (hypertension) Father Old age Brother Diabetes mellitus Maternal Grandmother Diabetes mellitus Heart disease Surgical History Surgical History H/O cardiac catheterization History of appendectomy Hx of foot surgery Social History Social History Household Members: Friend(s) Household Members Other:: Roommate Housing: House Do you presently have visiting nurse or other home services: No Alcohol intake: current Alcohol intake frequency: does not drink Patient Tobacco Use Status: Current everyday Tobacco user Tobacco use type: Cigarette Second Hand Smoke Exposure: No Substance Use Type: Crack/Cocaine and Other service: No Current occupational status: disabled Meds Allergies Allergy/AdvReac Type Severity Reaction Status Date / Time No Known Allergies Allergy Unverified 11/07/20 21:24 [No Known Allergies*] Active Medications: Current Medications Acetaminophen (Acetaminophen 325 Mg Tablet) 650 mg PO Q6H PRN PRN Reason: Pain, Mild (Pain Scale 1-3) Amlodipine Besylate (Amlodipine Besylate 10 Mg Tablet) 10 mg PO DAILY [facility]; Protocol Last Admin: 11/24/20 08:59 Dose: 10 mg Documented by: Aripiprazole (Aripiprazole 15 Mg Tablet) 15 mg PO DAILY [facility] Last Admin: 11/24/20 09:38 Dose: Not Given Documented by: Aspirin (Aspirin Enteric Coated 81 Mg Tablet.Dr) 81 mg PO DAILY [facility] Last Admin: 11/24/20 09:39 Dose: Not Given Documented by: Atorvastatin Calcium (Atorvastatin Calcium 80 Mg Tablet) 80 mg PO BEDTIME [facility] Last Admin: 11/23/20 21:52 Dose: 80 mg Documented by: Bupropion HCl (Bupropion Hcl Xl 300 Mg Tab.Er.24h) 300 mg PO DAILY [facility] Last Admin: 11/24/20 09:39 Dose: Not Given Documented by: Dextrose (Dextrose 50 % 25 Gm/50 Ml Vial) 25 gm IVPUSH Q15M PRN; Protocol PRN Reason: per Hypoglycemia Standing Ord. Gabapentin (Gabapentin 600 Mg Tablet) 600 mg PO TID [facility] Last Admin: 11/24/20 09:38 Dose: Not Given Documented by: Glucose (Glucose Gel 15 Gm Gel..Gram.) 15 gm PO Q15M PRN; Protocol PRN Reason: per Hypoglycemia Standing Ord. Hydroxyzine HCl (Hydroxyzine Hcl 25 Mg Tablet) 25 mg PO BEDTIME [facility] Last Admin: 11/23/20 21:52 Dose: 25 mg Documented by: Cefazolin Sodium/Dextrose (Ancef) 2 gm in 50 mls @ 100 mls/hr IV Q8H [facility] Last Admin: 11/24/20 07:27 Dose: 100 mls/hr Documented by: Promethazine HCl 12.5 mg/ (Sodium Chloride) 50.5 mls @ 202 mls/hr IV Q4H PRN PRN Reason: n/V not relieved by ZOfran Insulin Glargine (Insulin Glargine,Hum.Rec.Anlog 100 Unit/Ml 10 Ml Vial) 20 unit SUBCUT BEDTIME [facility] Last Admin: 11/23/20 22:43 Dose: Not Given Documented by: Insulin Human Lispro (Insulin Lispro 100 Unit/Ml 3 Ml Vial) 0 unit SUBCUT QIDACHS [facility]; Protocol Last Admin: 11/24/20 09:41 Dose: Not Given Documented by: Lisinopril (Lisinopril 10 Mg Tablet) 10 mg PO DAILY [facility]; Protocol Last Admin: 11/24/20 09:36 Dose: 10 mg Documented by: Morphine Sulfate (Morphine Sulfate 4 Mg/Ml Cartridge) 4 mg IVPUSH Q4H PRN; Protocol PRN Reason: Pain, Severe (Pain Scale 7-10) Last Admin: 11/24/20 07:33 Dose: 4 mg Documented by: Nicotine (Nicotine 21 Mg Patch.Td24) 21 mg TRANSDERMA DAILY [facility] Last Admin: 11/24/20 09:39 Dose: Not Given Documented by: Nitroglycerin (Nitroglycerin 0.4 Mg Tab.Subl) 0.4 mg SUBLINGUAL Q5M PRN PRN Reason: Angina Pantoprazole Sodium (Pantoprazole Sodium 40 Mg/10 Ml Vial) 40 mg IVPUSH BID@0630,1630 [facility] Last Admin: 11/24/20 05:47 Dose: 40 mg Documented by: Pharmacy Consult (Consult Rx Perform Med Rec) 1 each MISCELLANE ONCE PRN PRN Reason: Consult order Prazosin HCl (Prazosin Hcl 1 Mg Capsule) 2 mg PO BEDTIME [facility]; Protocol Last Admin: 11/23/20 22:45 Dose: 2 mg Documented by: Sodium Chloride (0.9 % Sodium Chloride Flush 3 Ml Syringe) 3 ml IVFLUSH QSHIFT [facility] Last Admin: 11/24/20 07:28 Dose: 3 ml Documented by: Sucralfate (Sucralfate 1 Gm Tablet) 1 gm PO TID [facility] Last Admin: 11/24/20 09:38 Dose: Not Given Documented by: Trazodone HCl (Trazodone Hcl 100 Mg Tablet) 100 mg PO BEDTIME [facility] Last Admin: 11/23/20 21:51 Dose: 100 mg Documented by: Venlafaxine HCl (Venlafaxine Hcl Er 75 Mg Cap.Er.24h) 75 mg PO DAILY [facility] Last Admin: 11/24/20 09:39 Dose: Not Given Documented by: Venlafaxine HCl (Venlafaxine Hcl Er 150 Mg Cap.Er.24h) 150 mg PO DAILY [facility] Last Admin: 11/24/20 09:39 Dose: Not Given Documented by: Vitamin D (Cholecalciferol (Vitamin D3) 25 Mcg Tablet) 50 mcg PO DAILY [facility] Last Admin: 11/24/20 09:38 Dose: Not Given Documented by: Home Medications Medication Instructions Recorded Confirmed Last Taken Type aripiprazole 15 mg tablet 15 mg PO DAILY 07/20/20 11/23/20 Unknown History bupropion HCl 300 mg 24 hr tablet, 300 mg PO DAILY 07/20/20 11/23/20 Unknown History extended release lancets 33 gauge #100 ea 07/20/20 11/08/20 Unknown History omeprazole 20 mg capsule,delayed 20 mg PO DAILY 07/20/20 11/23/20 Unknown History release pen needle, diabetic 32 gauge x #50 ea 07/20/20 11/08/20 Unknown History trazodone 100 mg tablet 100 mg PO BEDTIME 07/20/20 11/23/20 Unknown History venlafaxine 150 mg 150 mg PO DAILY 07/20/20 11/23/20 Unknown History capsule,extended release 24 hr cholecalciferol (vitamin D3) 50 50 mcg PO QAM 11/03/20 11/23/20 Unknown History mcg (2,000 unit) capsule gabapentin 600 mg tablet 1 tab PO TID 11/09/20 11/23/20 Unknown History hydroxyzine pamoate 25 mg capsule 1 cap PO BEDTIME 11/09/20 11/23/20 Unknown History metformin 500 mg tablet,extended 2 tab PO BID 11/09/20 11/23/20 Unknown History release 24 hr nitroglycerin 0.3 mg sublingual 1 tab SUBLINGUAL USEASDIRECTD 11/09/20 11/23/20 Unknown History tablet prazosin 2 mg capsule 1 cap PO BEDTIME 11/09/20 11/23/20 Unknown History venlafaxine 75 mg capsule,extended 75 mg PO DAILY 11/09/20 11/23/20 Unknown History release 24 hr Exam Exam Date and Time: November 24, [id number] Height,Weight and Vital Signs: Height 5 ft 10 in Weight 89.811 kg Last Vital Signs Temp 99.4 F 11/24/20 10:39 Pulse 88 11/24/20 10:39 Resp 19 11/24/20 10:39 BP 190/106 H 11/24/20 10:39 Pulse Ox 99 11/24/20 10:39 Pertinent Lab Results Pertinent Lab Results: Laboratory Tests 11/23/20 11/23/20 11/23/20 12:36 12:36 12:36 WBC 15.7 H RBC 4.37 L Hgb 14.2 Hct 39.9 L MCV 91.3 MCH 32.5 MCHC 35.6 RDW 12.3 Plt Count 306 MPV 10.7 Immature Gran % (Auto) 0.4 Neut % (Auto) 64.1 Lymph % (Auto) 27.0 [place] % (Auto) 8.1 Eos % (Auto) 0.0 Baso % (Auto) 0.4 Lymph # (Auto) 4.3 [place] # (Auto) 1.3 H Eos # (Auto) 0.0 Baso # (Auto) 0.1 Abs Immat Gran (auto) 0.07 H Absolute Neuts (auto) 10.1 H Absolute Nucleated RBC 0.000 Nucleated RBC % (auto) 0.0 Sodium 137 Potassium 3.6 D Chloride 102 Carbon Dioxide 23 Anion Gap 16 BUN 27 H D Creatinine 1.46 H Estim Creat Clear Calc 63.1 Estimated GFR 51 POC Glucose Random Glucose 196 H D Calcium 9.1 Magnesium Total Bilirubin 1.0 Direct Bilirubin 0.4 AST 51 H ALT 28 Alkaline Phosphatase 117 Troponin I High Sens 7.5 D Total Protein 8.3 H Albumin 4.1 Lipase 30 Urine Color Urine Appearance Urine pH Ur Specific [place] Urine Protein Urine Glucose (UA) Urine Ketones Urine Blood Urine Nitrite Ur Leukocyte Esterase Urine RBC Urine WBC Ur Squamous Epith Cells Amorphous Sediment Urine Bacteria Urine Mucus Urine Opiates Screen Urine Fentanyl Screen Ur Barbiturates Screen Ur Phencyclidine Scrn Ur Amphetamines Screen U Benzodiazepines Scrn Urine Cocaine Screen U Marijuana (THC) Screen COVID-19 (DANIEL) COVID-19 Clin Com Hep Bs Antigen Hep Bs Antibody Hep B Core Total Ab Hepatitis C Ab (EIA) 11/23/20 11/23/20 11/23/20 14:40 14:40 14:40 WBC RBC Hgb Hct MCV MCH MCHC RDW Plt Count MPV Immature Gran % (Auto) Neut % (Auto) Lymph % (Auto) [place] % (Auto) Eos % (Auto) Baso % (Auto) Lymph # (Auto) [place] # (Auto) Eos # (Auto) Baso # (Auto) Abs Immat Gran (auto) Absolute Neuts (auto) Absolute Nucleated RBC Nucleated RBC % (auto) Sodium Potassium Chloride Carbon Dioxide Anion Gap BUN Creatinine Estim Creat Clear Calc Estimated GFR POC Glucose Random Glucose Calcium Magnesium Total Bilirubin Direct Bilirubin AST ALT Alkaline Phosphatase Troponin I High Sens Total Protein Albumin Lipase Urine Color YELLOW Urine Appearance CLEAR Urine pH 6.0 Ur Specific [place] 1.015 Urine Protein 1+ H Urine Glucose (UA) 250 H Urine Ketones NEG Urine Blood 1+ H Urine Nitrite NEG Ur Leukocyte Esterase NEG Urine RBC 1-4 Urine WBC 0 Ur Squamous Epith Cells 1+ Amorphous Sediment TRACE Urine Bacteria TRACE Urine Mucus TRACE Urine Opiates Screen POSITIVE H Urine Fentanyl Screen POSITIVE H Ur Barbiturates Screen Not Detected Ur Phencyclidine Scrn Not Detected Ur Amphetamines Screen Not Detected U Benzodiazepines Scrn Not Detected Urine Cocaine Screen Not Detected U Marijuana (THC) Screen Not Detected COVID-19 (DANIEL) Negative COVID-19 Clin Com See Note Hep Bs Antigen Hep Bs Antibody Hep B Core Total Ab Hepatitis C Ab (EIA) 11/23/20 11/23/20 11/23/20 15:54 17:31 21:59 WBC RBC Hgb Hct MCV MCH MCHC RDW Plt Count MPV Immature Gran % (Auto) Neut % (Auto) Lymph % (Auto) [place] % (Auto) Eos % (Auto) Baso % (Auto) Lymph # (Auto) [place] # (Auto) Eos # (Auto) Baso # (Auto) Abs Immat Gran (auto) Absolute Neuts (auto) Absolute Nucleated RBC Nucleated RBC % (auto) Sodium Potassium Chloride Carbon Dioxide Anion Gap BUN Creatinine Estim Creat Clear Calc Estimated GFR POC Glucose 174 H 183 H 174 H Random Glucose Calcium Magnesium Total Bilirubin Direct Bilirubin AST ALT Alkaline Phosphatase Troponin I High Sens Total Protein Albumin Lipase Urine Color Urine Appearance Urine pH Ur Specific [place] Urine Protein Urine Glucose (UA) Urine Ketones Urine Blood Urine Nitrite Ur Leukocyte Esterase Urine RBC Urine WBC Ur Squamous Epith Cells Amorphous Sediment Urine Bacteria Urine Mucus Urine Opiates Screen Urine Fentanyl Screen Ur Barbiturates Screen Ur Phencyclidine Scrn Ur Amphetamines Screen U Benzodiazepines Scrn Urine Cocaine Screen U Marijuana (THC) Screen COVID-19 (DANIEL) COVID-19 Clin Com Hep Bs Antigen Hep Bs Antibody Hep B Core Total Ab Hepatitis C Ab (EIA) 11/24/20 11/24/20 11/24/20 06:44 06:44 06:44 WBC 12.3 H RBC 4.16 L Hgb 13.4 L Hct 38.4 L MCV 92.3 MCH 32.2 MCHC 34.9 RDW 12.3 Plt Count 278 MPV 10.7 Immature Gran % (Auto) Neut % (Auto) Lymph % (Auto) [place] % (Auto) Eos % (Auto) Baso % (Auto) Lymph # (Auto) [place] # (Auto) Eos # (Auto) Baso # (Auto) Abs Immat Gran (auto) Absolute Neuts (auto) Absolute Nucleated RBC 0.000 Nucleated RBC % (auto) 0.0 Sodium 138 Potassium 3.6 Chloride 104 Carbon Dioxide 26 Anion Gap 12 BUN 22 H Creatinine 1.26 Estim Creat Clear Calc 73.2 Estimated GFR > 60 POC Glucose Random Glucose 186 H Calcium 8.7 Magnesium 2.0 Total Bilirubin 1.0 Direct Bilirubin 0.4 AST 43 H ALT 29 Alkaline Phosphatase 106 Troponin I High Sens Total Protein 7.4 Albumin 3.7 Lipase Urine Color Urine Appearance Urine pH Ur Specific [place] Urine Protein Urine Glucose (UA) Urine Ketones Urine Blood Urine Nitrite Ur Leukocyte Esterase Urine RBC Urine WBC Ur Squamous Epith Cells Amorphous Sediment Urine Bacteria Urine Mucus Urine Opiates Screen Urine Fentanyl Screen Ur Barbiturates Screen Ur Phencyclidine Scrn Ur Amphetamines Screen U Benzodiazepines Scrn Urine Cocaine Screen U Marijuana (THC) Screen COVID-19 (DANIEL) COVID-19 Clin Com Hep Bs Antigen Negative Hep Bs Antibody NONREACTIVE Hep B Core Total Ab Nonreactive Hepatitis C Ab (EIA) Nonreactive 11/24/20 11/24/20 09:03 10:42 WBC RBC Hgb Hct MCV MCH MCHC RDW Plt Count MPV Immature Gran % (Auto) Neut % (Auto) Lymph % (Auto) [place] % (Auto) Eos % (Auto) Baso % (Auto) Lymph # (Auto) [place] # (Auto) Eos # (Auto) Baso # (Auto) Abs Immat Gran (auto) Absolute Neuts (auto) Absolute Nucleated RBC Nucleated RBC % (auto) Sodium Potassium Chloride Carbon Dioxide Anion Gap BUN Creatinine Estim Creat Clear Calc Estimated GFR POC Glucose 191 H 167 H Random Glucose Calcium Magnesium Total Bilirubin Direct Bilirubin AST ALT Alkaline Phosphatase Troponin I High Sens Total Protein Albumin Lipase Urine Color Urine Appearance Urine pH Ur Specific [place] Urine Protein Urine Glucose (UA) Urine Ketones Urine Blood Urine Nitrite Ur Leukocyte Esterase Urine RBC Urine WBC Ur Squamous Epith Cells Amorphous Sediment Urine Bacteria Urine Mucus Urine Opiates Screen Urine Fentanyl Screen Ur Barbiturates Screen Ur Phencyclidine Scrn Ur Amphetamines Screen U Benzodiazepines Scrn Urine Cocaine Screen U Marijuana (THC) Screen COVID-19 (DANIEL) COVID-19 Clin Com Hep Bs Antigen Hep Bs Antibody Hep B Core Total Ab Hepatitis C Ab (EIA) Airway Mallampati Class: IV TM Dist: >3cm Loose/Missing/Broken Teeth: Yes, Upper and Lower
--- NOTE | 2020-11-24 12:09 | P.BOP_ITS ---
Brief Operative Note Date of Service: 11/24/20 Pre-op diagnosis: Epigastric pain, nausea and vomiting Post-op diagnosis: other (Gastritis, duodenitis) Procedure: FLEXIBLE TRANSORAL UPPER GASTROINTESTINAL ENDOSCOPY WITH BIOPSIES Consent: Indications for the procedure and potential complications of bleeding, perforation, reaction to medications and missed diagnosis were discussed with the patient with the help of a machine fur cleaner and informed consent was obtained. Instrument: Olympus GIF H 190 mid size upper endoscope Monitoring: Vital signs and clinical assessment, continuous EKG monitoring, Pulse oximetry, Carbon Dioxide monitoring and blood pressure monitoring were done throughout the procedure. Procedure: The patient was placed in the left lateral decubitis position and pre-procedure medications were administered and a bite block was placed. The endoscope was inserted into the mouth and advanced under direct vision to the third part of duodenum. A careful inspection was made as the upper endoscope was withdrawn including a retroflexed examination of the proximal stomach; Findings and interventions are described below. Findings: Larynx: Normal Esophagus: GE junction at 40 cms. No esophagitis or Dickens Stomach: Moderate gastric erythema - no ulcers noted. Biopsies were obtained to check for H Pylori. Grade 2 flap valve on retroflexed examination of the cardia. Duodenum: Mild duodenitis in the bulb and normal descending duodenum. Random biopsies obtained from 3rd part of the duodenum to check for celiac sprue Intervention: Biopsies as noted above Impression and Post Procedure Diagnosis: Endoscopy Findings: STOMACH: Gastritis DUODENUM: Mild duodenitis in the bulb. No ulcers noted. No clear etiology seen for patient's abdominal pain, nausea and vomiting. Plan: Agree with proceeding with a Gastric Emptying Study once nausea and vomiting subsides. If GES is negative, consider repeat Abd CT scan with IV and PO contrast. Continue IV PPI and PO sucralfate. Await pathology results. Patient has an appointment on 01/24/21 in the GI Clinic with Rhona Carrillo M.D. Above findings were reviewed with the patient. Surgeon: Tiffany Lizarraga MD Anesthesia: MAC (Dr Orosco) Was an Head Insulation Board Saw Operator used for this Procedure?: Yes Head Insulation Board Saw Operator: Bruna Peguero Estimated blood loss (mL): 0 Pathology: other (A. small bowel biopsies, R/O celiac B. gastric antrum biopsies) Condition: stable Disposition: PACU
--- NOTE | 2020-11-24 12:39 | W.PM.OPN ---
Operative Note Operative Note Date of Service: 11/24/20 Narrative: Pre-op diagnosis:?Epigastric pain, nausea and vomiting Post-op diagnosis:?other (Gastritis, duodenitis) Procedure:? FLEXIBLE TRANSORAL UPPER GASTROINTESTINAL ENDOSCOPY WITH BIOPSIES Consent:?Indications for the procedure and potential complications of bleeding, perforation, reaction to medications and missed diagnosis were discussed with the patient with the help of a spanish interpreter/translator and informed consent was obtained. Instrument:?Olympus GIF H 190 mid size upper endoscope Monitoring: Vital signs and clinical assessment, continuous EKG monitoring, Pulse oximetry, Carbon Dioxide monitoring and blood pressure monitoring were done throughout the procedure. Procedure:?The patient was placed in the left lateral decubitis position and pre-procedure medications were administered and a bite block was placed. The endoscope was inserted into the mouth and advanced under direct vision to the third part of duodenum. A careful inspection was made as the upper endoscope was withdrawn including a retroflexed examination of the proximal stomach; Findings and interventions are described below. Findings: Larynx:? Normal Esophagus:?GE junction at 40 cms. No esophagitis or Dickens Stomach:?Moderate gastric erythema - no ulcers noted.? Biopsies were obtained to check for H Pylori.? Grade 2 flap valve on retroflexed examination of the cardia. Duodenum:?Mild duodenitis in the bulb and normal descending duodenum. Random biopsies obtained from 3rd part of the duodenum to check for celiac sprue Intervention:?Biopsies as noted above Impression and Post Procedure Diagnosis: Endoscopy Findings: STOMACH: Gastritis DUODENUM: Mild duodenitis in the bulb. No ulcers noted. No clear etiology seen for patient's abdominal pain, nausea and vomiting. Plan: Agree with proceeding with a Gastric Emptying Study once nausea and vomiting subsides. If GES is negative, consider repeat Abd CT scan with IV and PO contrast. Continue IV PPI and PO sucralfate. Await pathology results. Patient has an appointment on 01/24/21 in the GI Clinic with Rhona Carrillo M.D. Above findings were reviewed with the patient. Surgeon:?Tiffany Lizarraga MD Anesthesia:?MAC (Dr Orosco) Was an Signs And Displays Sales Representative used for this Procedure?:?Yes Signs And Displays Sales Representative:?Bruna Peguero Estimated blood loss (mL):?0 Pathology:?other (A. small bowel biopsies, R/O celiac? B. gastric antrum biopsies) Condition:?stable Disposition:?PACU
[2020-11-24] MEDS: Nitroglycerin 2 % Oint 1 GM Packet 1 INCH TRANSDERMA (13:38)
[2020-11-24] MEDS: Lactated Ringers 1,000 ML 100 ML IVCONT (13:45)
--- NOTE | 2020-11-24 16:15 | PC.NURSE ---
called for report- s3 rn to call back
--- NOTE | 2020-11-24 16:46 | P.PNIM_ITS ---
Subjective Subjective Date of Service: 11/24/20 Interval History: Seen and examined this morning Follow-up for abdominal pain s/p endoscopy Still complaining burning epigastric abdominal pain. Improvement in vomiting Review of Systems Review of Systems: Yes all other systems are reviewed and are negative Constitutional Constitutional: Denies chills and Denies fever(s) Cardiovascular Cardiovascular: Denies chest pain Respiratory Respiratory: Denies cough Physical Exam Vital Signs: Vital Signs: Last Vital Signs Temp 98.8 F 11/24/20 12:57 Pulse 91 11/24/20 12:57 Resp 16 11/24/20 12:57 BP 183/96 H 11/24/20 12:57 Pulse Ox 99 11/24/20 12:57 Body Mass Index 28.4 Const: Nutritional Appearance: well nourished Orientation/consciousness: patient oriented x3 HENMT: Head: Yes normocephalic and Yes atraumatic Eyes: Sclerae: sclerae normal Chest: Chest palpation & inspection: normal inspection of the chest Resp: Effort & Inspection: normal respiratory effort and no respiratory distress Cardio: Rate: regular rate Rhythm: regular rhythm GI: Other: mild epigastric tenderness Palpation (GI): Soft to palpation Skin: General skin exam: no rashes or lesions noted Neuro: General: patient oriented x3 Cranial nerves: Yes CN's II-XII intact bilaterally and Yes Bilaterally intact EOM present Extrem: General: Yes normal to inspection Objective Data Active Medications Acetaminophen (Acetaminophen 325 Mg Tablet) 650 mg PO Q6H PRN PRN Reason: Pain, Mild (Pain Scale 1-3) Amlodipine Besylate (Amlodipine Besylate 10 Mg Tablet) 10 mg PO DAILY [facility]; Protocol Last Admin: 11/24/20 08:59 Dose: 10 mg Documented by: EITAN Aripiprazole (Aripiprazole 15 Mg Tablet) 15 mg PO DAILY [facility] Last Admin: 11/24/20 09:38 Dose: Not Given Documented by: EITAN Non-Admin Reason: See Note Aspirin (Aspirin Enteric Coated 81 Mg Tablet.) 81 mg PO DAILY [facility] Last Admin: 11/24/20 09:39 Dose: Not Given Documented by: EITAN Non-Admin Reason: See Note Atorvastatin Calcium (Atorvastatin Calcium 80 Mg Tablet) 80 mg PO BEDTIME [facility] Last Admin: 11/23/20 21:52 Dose: 80 mg Documented by: LASHA Bupropion HCl (Bupropion Hcl Xl 300 Mg Tab.Er.24h) 300 mg PO DAILY [facility] Last Admin: 11/24/20 09:39 Dose: Not Given Documented by: EITAN Non-Admin Reason: See Note Dextrose (Dextrose 50 % 25 Gm/50 Ml Vial) 25 gm IVPUSH Q15M PRN; Protocol PRN Reason: per Hypoglycemia Standing Ord. Gabapentin (Gabapentin 600 Mg Tablet) 600 mg PO TID [facility] Last Admin: 11/24/20 09:38 Dose: Not Given Documented by: EITAN Non-Admin Reason: See Note Glucose (Glucose Gel 15 Gm Gel..Gram.) 15 gm PO Q15M PRN; Protocol PRN Reason: per Hypoglycemia Standing Ord. Hydroxyzine HCl (Hydroxyzine Hcl 25 Mg Tablet) 25 mg PO BEDTIME [facility] Last Admin: 11/23/20 21:52 Dose: 25 mg Documented by: LASHA Cefazolin Sodium/Dextrose (Ancef) 2 gm in 50 mls @ 100 mls/hr IV Q8H [facility] Last Admin: 11/24/20 07:27 Dose: 100 mls/hr Documented by: EITAN Promethazine HCl 12.5 mg/ (Sodium Chloride) 50.5 mls @ 202 mls/hr IV Q4H PRN PRN Reason: n/V not relieved by ZOfran Insulin Glargine (Insulin Glargine,Hum.Rec.Anlog 100 Unit/Ml 10 Ml Vial) 20 unit SUBCUT BEDTIME [facility] Last Admin: 11/23/20 22:43 Dose: Not Given Documented by: LASHA Non-Admin Reason: NPO Insulin Human Lispro (Insulin Lispro 100 Unit/Ml 3 Ml Vial) 0 unit SUBCUT QIDACHS [facility]; Protocol Last Admin: 11/24/20 13:45 Dose: Not Given Documented by: EITAN Non-Admin Reason: See Note Lisinopril (Lisinopril 10 Mg Tablet) 10 mg PO DAILY [facility]; Protocol Last Admin: 11/24/20 09:36 Dose: 10 mg Documented by: EITAN Morphine Sulfate (Morphine Sulfate 4 Mg/Ml Cartridge) 4 mg IVPUSH Q4H PRN; Protocol PRN Reason: Pain, Severe (Pain Scale 7-10) Last Admin: 11/24/20 13:37 Dose: 4 mg Documented by: EITAN Nicotine (Nicotine 21 Mg Patch.Td24) 21 mg TRANSDERMA DAILY [facility] Last Admin: 11/24/20 09:39 Dose: Not Given Documented by: EITAN Non-Admin Reason: See Note Pantoprazole Sodium (Pantoprazole Sodium 40 Mg/10 Ml Vial) 40 mg IVPUSH BID@0630,1630 [facility] Last Admin: 11/24/20 05:47 Dose: 40 mg Documented by: LASHA Pharmacy Consult (Consult Rx Perform Med Rec) 1 each MISCELLANE ONCE PRN PRN Reason: Consult order Prazosin HCl (Prazosin Hcl 1 Mg Capsule) 2 mg PO BEDTIME [facility]; Protocol Last Admin: 11/23/20 22:45 Dose: 2 mg Documented by: LASHA Sodium Chloride (0.9 % Sodium Chloride Flush 3 Ml Syringe) 3 ml IVFLUSH QSHIFT [facility] Last Admin: 11/24/20 07:28 Dose: 3 ml Documented by: EITAN Sucralfate (Sucralfate 1 Gm Tablet) 1 gm PO TID [facility] Last Admin: 11/24/20 09:38 Dose: Not Given Documented by: EITAN Non-Admin Reason: See Note Trazodone HCl (Trazodone Hcl 100 Mg Tablet) 100 mg PO BEDTIME [facility] Last Admin: 11/23/20 21:51 Dose: 100 mg Documented by: LASHA Venlafaxine HCl (Venlafaxine Hcl Er 75 Mg Cap.Er.24h) 75 mg PO DAILY [facility] Last Admin: 11/24/20 09:39 Dose: Not Given Documented by: EITAN Non-Admin Reason: See Note Venlafaxine HCl (Venlafaxine Hcl Er 150 Mg Cap.Er.24h) 150 mg PO DAILY [facility] Last Admin: 11/24/20 09:39 Dose: Not Given Documented by: EITAN Non-Admin Reason: See Note Vitamin D (Cholecalciferol (Vitamin D3) 25 Mcg Tablet) 50 mcg PO DAILY [facility] Last Admin: 11/24/20 09:38 Dose: Not Given Documented by: EITAN Non-Admin Reason: See Note Labs CBC & Chem 7: 11/24/20 06:44 11/24/20 06:44 Labs: Laboratory Results - last 24 hr 10/06/21 10/06/21 10/07/21 17:31 21:59 06:44 MCV MCH MCHC RDW Plt Count MPV Absolute Nucleated RBC Nucleated RBC % (auto) Anion Gap 12 Estim Creat Clear Calc 73.2 Estimated GFR > 60 POC Glucose 183 H 174 H Random Glucose 186 H Calcium 8.7 Magnesium 2.0 Total Bilirubin 1.0 Direct Bilirubin 0.4 AST 43 H ALT 29 Alkaline Phosphatase 106 Total Protein 7.4 Albumin 3.7 Hep Bs Antigen Hep Bs Antibody Hep B Core Total Ab Hepatitis C Ab (EIA) 11/24/20 11/24/20 11/24/20 06:44 06:44 09:03 MCV 92.3 MCH 32.2 MCHC 34.9 RDW 12.3 Plt Count 278 MPV 10.7 Absolute Nucleated RBC 0.000 Nucleated RBC % (auto) 0.0 Anion Gap Estim Creat Clear Calc Estimated GFR POC Glucose 191 H Random Glucose Calcium Magnesium Total Bilirubin Direct Bilirubin AST ALT Alkaline Phosphatase Total Protein Albumin Hep Bs Antigen Negative Hep Bs Antibody NONREACTIVE Hep B Core Total Ab Nonreactive Hepatitis C Ab (EIA) Nonreactive 11/24/20 10:42 MCV MCH MCHC RDW Plt Count MPV Absolute Nucleated RBC Nucleated RBC % (auto) Anion Gap Estim Creat Clear Calc Estimated GFR POC Glucose 167 H Random Glucose Calcium Magnesium Total Bilirubin Direct Bilirubin AST ALT Alkaline Phosphatase Total Protein Albumin Hep Bs Antigen Hep Bs Antibody Hep B Core Total Ab Hepatitis C Ab (EIA) Assessment and Plan (1) Gastritis: Status: Acute Assessment and Plan: 50yo M with IDDM, HTN, HLD, and CAD who was recently hospitalized here 11/09- 11/17/20 for sepsis due to left olecranon bursitis complicated by MSSA bacte remia, presenting with epigastric pain and intractable nausea and vomiting, and hypertensive urgency nausea/vomiting/abdominal pain still with abdominal pain, vomiting improving Seen by GI, s/p endoscopy showing gastritis/duodenitis -continue IV PPI, sucralfate -advance diet as tolerated mild transaminasemia [AST] trednding down hepatitis screen negative mild leukocytosis - ?reactive. no sign of infection. improving mild renal insufficiency does not meet criteria for TJ creatinine improving HTN urgency BP uncontrolled. - increase dose of lisinopril - continue amlodipine MSSA bacteremia, olecranon bursitis from previous admission - continue IV cefazolin CAD HLD - continue statin, ASA DM2, A1c 7.4 (11/18/20) - basal/bolus insulin; hold MTF neuropathy - continue gabapentin mood disorder - continue bupropion, venlafaxine, aripiprazole, trazodone, prazosin tobacco abuse - NRT VTE ppx - LMWH attending: dr. goel Quality Stroke Does the patient have a stroke diagnosis?: No VTE Prior VTE?: No VTE Risk Level:: Medical - moderate - high VTE Device Contraindication: N/A - Device Ordered VTE Drug Contraindication: N/A - Med Ordered
--- NOTE | 2020-11-24 17:02 | PC.NURSE ---
report given to s3
[2020-11-24 17:58] LABS: Glucose, Whole Blood 170 mg/dL (60-115)
[2020-11-24 20:38] LABS: Glucose, Whole Blood 161 mg/dL (60-115)
[2020-11-24] MEDS: Insulin Glargine,Hum.rec.anlog 100 UNIT/ML 10 ML VIAL 20 UNIT SUBCUT (20:47)
[2020-11-24] MEDS: hydrOXYzine HCL 25 MG TABLET PO (20:48)
[2020-11-24] MEDS: Insulin Lispro 100 UNIT/ML 3 ML VIAL SUBCUT (20:48)
[2020-11-24] MEDS: Prazosin HCL 1 MG CAPSULE 2 MG PO (20:48)
[2020-11-24] MEDS: Gabapentin 600 MG TABLET PO (20:48)
[2020-11-24] MEDS: Sucralfate 1 GM TABLET PO (20:49)
[2020-11-24] MEDS: traZODone HCL 100 MG TABLET PO (20:49)
[2020-11-24] MEDS: Atorvastatin Calcium 80 MG TABLET PO (20:49)
[2020-11-25] VITALS (7 sets, daily range): BP systolic 121–180; BP diastolic 82–91; PULSE 82–98; RESP 17–18; TEMP 36.6–37.6; O2SAT 96–100
[2020-11-25] MEDS: ceFAZolin Sodium/Dextrose,Iso 2 GM/50 ML PIGGYBACK IV ×3 (01:17→18:34)
[2020-11-25] MEDS: 0.9 % Sodium Chloride Flush 3 ML SYRINGE IVFLUSH ×2 (01:17→07:47)
[2020-11-25] MEDS: Morphine Sulfate 4 MG/ML CARTRIDGE IVPUSH ×2 (04:09→08:00)
[2020-11-25] MEDS: Pantoprazole Sodium 40 MG/10 ML VIAL IVPUSH ×2 (05:45→18:34)
[2020-11-25 07:39] LABS: Glucose, Whole Blood 123 mg/dL (60-115)
[2020-11-25] MEDS: Gabapentin 600 MG TABLET PO ×2 (07:45→22:07)
[2020-11-25] MEDS: Aspirin Enteric Coated 81 MG TABLET.DR PO (07:45)
[2020-11-25] MEDS: lisinopriL 10 MG TABLET PO (07:46)
[2020-11-25] MEDS: amLODIPine Besylate 10 MG TABLET PO (07:46)
[2020-11-25] MEDS: buPROPion HCl XL 300 MG TAB.ER.24H PO (07:46)
[2020-11-25] MEDS: Venlafaxine HCl ER 75 MG CAP.ER.24H PO (07:46)
[2020-11-25] MEDS: Venlafaxine HCl ER 150 MG CAP.ER.24H PO (07:46)
[2020-11-25] MEDS: Sucralfate 1 GM TABLET PO ×2 (07:46→22:07)
[2020-11-25] MEDS: ARIPiprazole 15 MG TABLET PO (07:46)
[2020-11-25] MEDS: Cholecalciferol (Vitamin D3) 25 MCG TABLET 50 MCG PO (07:47)
[2020-11-25] MEDS: Nicotine 21 MG PATCH.TD24 TRANSDERMA (07:49)
[2020-11-25 08:35] LABS: Hematocrit 39.6 % (42-52); Hemoglobin 13.7 g/dl (14.0-18.0); Mean Corpuscular HGB Conc 34.6 g/dl (31.0-36.0); Mean Corpuscular Hemoglobin 31.9 pg (27.0-33.0); Mean Corpuscular Volume 92.1 fL (80-98); Mean Platelet Volume 10.9 fL (9.4-12.4); Platelet Count 258 X10*3/uL (160-400); Red Cell Distribution Width 12.2 % (11.0-16.0); White Blood Count 11.5 X10*3/uL (4.8-10.8)
[2020-11-25 08:49] LABS: Anion Gap 12 (12-20); Blood Urea Nitrogen 20 mg/dL (9-16); Calcium 9.1 mg/dL (8.4-10.2); Carbon Dioxide 29 mmol/L (22-29); Chloride 99 mmol/L (96-108); Creatinine Clr Calc Pharmacy 78.7; Estimated Glomerular Filt Rate 60; Glucose Random 118 mg/dL (60-115); Potassium 3.4 mmol/L (3.3-5.1); Sodium 137 mmol/L (135-145)
--- NOTE | 2020-11-25 10:09 | HO.PM.IMPN ---
Subjective Subjective Date of Service: 11/25/20 Interval History: seen and examined this AM still has pain and nausea not eating much of his clears Review of Systems General - no fevers or chills Cardiovascular - no chest pain Respiratory - no shortness of breath or cough Abdominal- +abdominal pain, nausea/vomiting Physical Exam Vital Signs: Vital Signs: Last Vital Signs Temp 99.2 F 11/25/20 07:22 Pulse 85 11/25/20 07:46 Resp 18 11/25/20 07:22 BP 158/87 H 11/25/20 07:46 Pulse Ox 100 11/25/20 07:22 Body Mass Index 28.4 Const: Other: General - no acute distress, appears comfortable Cardiovascular - regular rate and rhythm, S1-S2 Lungs - normal respiratory effort, clear to auscultation bilaterally, no wheezing Abdomen - +epigastric TTP without rebound, hypoactive BS Extremities - no edema bilaterally Neuro - awake and alert, no focal deficits Objective Data Active Medications Acetaminophen (Acetaminophen 325 Mg Tablet) 650 mg PO Q6H PRN PRN Reason: Pain, Mild (Pain Scale 1-3) Amlodipine Besylate (Amlodipine Besylate 10 Mg Tablet) 10 mg PO DAILY [facility]; Protocol Last Admin: 11/25/20 07:46 Dose: 10 mg Documented by: AMINAH Aripiprazole (Aripiprazole 15 Mg Tablet) 15 mg PO DAILY [facility] Last Admin: 11/25/20 07:46 Dose: 15 mg Documented by: AMINAH Aspirin (Aspirin Enteric Coated 81 Mg Tablet.) 81 mg PO DAILY [facility] Last Admin: 11/25/20 07:45 Dose: 81 mg Documented by: AMINAH Atorvastatin Calcium (Atorvastatin Calcium 80 Mg Tablet) 80 mg PO BEDTIME [facility] Last Admin: 11/24/20 20:49 Dose: 80 mg Documented by: ANKITA Bupropion HCl (Bupropion Hcl Xl 300 Mg Tab.Er.24h) 300 mg PO DAILY [facility] Last Admin: 11/25/20 07:46 Dose: 300 mg Documented by: AMINAH Dextrose (Dextrose 50 % 25 Gm/50 Ml Vial) 25 gm IVPUSH Q15M PRN; Protocol PRN Reason: per Hypoglycemia Standing Ord. Gabapentin (Gabapentin 600 Mg Tablet) 600 mg PO TID [facility] Last Admin: 11/25/20 07:45 Dose: 600 mg Documented by: AMINAH Glucose (Glucose Gel 15 Gm Gel..Gram.) 15 gm PO Q15M PRN; Protocol PRN Reason: per Hypoglycemia Standing Ord. Hydroxyzine HCl (Hydroxyzine Hcl 25 Mg Tablet) 25 mg PO BEDTIME [facility] Last Admin: 11/24/20 20:48 Dose: 25 mg Documented by: ANKITA Cefazolin Sodium/Dextrose (Ancef) 2 gm in 50 mls @ 100 mls/hr IV Q8H [facility] Last Infusion: 11/25/20 08:28 Dose: 0 mls/hr Documented by: AMINAH Promethazine HCl 12.5 mg/ (Sodium Chloride) 50.5 mls @ 202 mls/hr IV Q4H PRN PRN Reason: n/V not relieved by ZOfran Last Infusion: 11/24/20 18:40 Dose: 0 mls/hr Documented by: MARY Insulin Glargine (Insulin Glargine,Hum.Rec.Anlog 100 Unit/Ml 10 Ml Vial) 20 unit SUBCUT BEDTIME [facility] Last Admin: 11/24/20 20:47 Dose: 20 unit Documented by: ANKITA Insulin Human Lispro (Insulin Lispro 100 Unit/Ml 3 Ml Vial) 0 unit SUBCUT QIDACHS [facility]; Protocol Last Admin: 11/25/20 07:42 Dose: Not Given Documented by: AMINAH Non-Admin Reason: No Insulin Coverage Lisinopril (Lisinopril 10 Mg Tablet) 10 mg PO DAILY [facility]; Protocol Last Admin: 11/25/20 07:46 Dose: 10 mg Documented by: AMINAH Morphine Sulfate (Morphine Sulfate 4 Mg/Ml Cartridge) 4 mg IVPUSH Q4H PRN; Protocol PRN Reason: Pain, Severe (Pain Scale 7-10) Last Admin: 11/25/20 08:00 Dose: 4 mg Documented by: AMINAH Nicotine (Nicotine 21 Mg Patch.Td24) 21 mg TRANSDERMA DAILY [facility] Last Admin: 11/25/20 07:49 Dose: 21 mg Documented by: AMINAH Pantoprazole Sodium (Pantoprazole Sodium 40 Mg/10 Ml Vial) 40 mg IVPUSH BID@0630,1630 [facility] Last Admin: 11/25/20 05:45 Dose: 40 mg Documented by: ANKITA Pharmacy Consult (Consult Rx Perform Med Rec) 1 each MISCELLANE ONCE PRN PRN Reason: Consult order Prazosin HCl (Prazosin Hcl 1 Mg Capsule) 2 mg PO BEDTIME [facility]; Protocol Last Admin: 11/24/20 20:48 Dose: 2 mg Documented by: ANKITA Sodium Chloride (0.9 % Sodium Chloride Flush 3 Ml Syringe) 3 ml IVFLUSH QSHIFT [facility] Last Admin: 11/25/20 07:47 Dose: 3 ml Documented by: AMINAH Sucralfate (Sucralfate 1 Gm Tablet) 1 gm PO TID [facility] Last Admin: 11/25/20 07:46 Dose: 1 gm Documented by: AMINAH Trazodone HCl (Trazodone Hcl 100 Mg Tablet) 100 mg PO BEDTIME [facility] Last Admin: 11/24/20 20:49 Dose: 100 mg Documented by: ANKITA Venlafaxine HCl (Venlafaxine Hcl Er 75 Mg Cap.Er.24h) 75 mg PO DAILY [facility] Last Admin: 11/25/20 07:46 Dose: 75 mg Documented by: AMINAH Venlafaxine HCl (Venlafaxine Hcl Er 150 Mg Cap.Er.24h) 150 mg PO DAILY [facility] Last Admin: 11/25/20 07:46 Dose: 150 mg Documented by: AMINAH Vitamin D (Cholecalciferol (Vitamin D3) 25 Mcg Tablet) 50 mcg PO DAILY [facility] Last Admin: 11/25/20 07:47 Dose: 50 mcg Documented by: AMINAH Labs CBC & Chem 7: 11/25/20 08:25 11/25/20 08:25 Labs: Laboratory Results - last 24 hr 11/24/20 11/24/20 11/24/20 10:42 17:54 20:26 MCV MCH MCHC RDW Plt Count MPV Absolute Nucleated RBC Nucleated RBC % (auto) Anion Gap Estim Creat Clear Calc Estimated GFR POC Glucose 167 H 170 H 161 H Random Glucose Calcium 11/25/20 11/25/20 11/25/20 07:28 08:25 08:25 MCV 92.1 MCH 31.9 MCHC 34.6 RDW 12.2 Plt Count 258 MPV 10.9 Absolute Nucleated RBC 0.000 Nucleated RBC % (auto) 0.0 Anion Gap 12 Estim Creat Clear Calc 78.7 Estimated GFR 60 POC Glucose 123 H Random Glucose 118 H D Calcium 9.1 Assessment and Plan (1) Gastritis: Status: Acute Assessment and Plan: 50yo M with IDDM, HTN, HLD, and CAD who was recently hospitalized here 11/09-11/17/20 for sepsis due to left olecranon bursitis complicated by MSSA bacteremia, presenting with epigastric pain and intractable nausea and vomiting, and hypertensive urgency nausea/vomiting/abdominal pain s/p egd showing gastritis and duodenitis continue iv ppi and carafate will check gastric emptying study as his pain / nausea seem out of proportion to his EGD findings mild transaminasemia [AST] trending down hepatitis screen negative mild leukocytosis - ?reactive. no sign of infection. improving mild renal insufficiency does not meet criteria for TJ creatinine improving HTN urgency improved continue current regime MSSA bacteremia, olecranon bursitis from previous admission - continue IV cefazolin CAD HLD - continue statin, ASA DM2, A1c 7.4 (11/18/20) - basal/bolus insulin; hold MTF neuropathy - continue gabapentin mood disorder - continue bupropion, venlafaxine, aripiprazole, trazodone, prazosin tobacco abuse - NRT VTE ppx - LMWH Quality Stroke Does the patient have a stroke diagnosis?: No VTE Prior VTE?: No VTE Risk Level:: Medical - moderate - high VTE Device Contraindication: N/A - Device Ordered VTE Drug Contraindication: N/A - Med Ordered
--- NOTE | 2020-11-25 11:04 | PM.PNCARD ---
Subjective Subjective Date of Service: 11/25/20 Interval history: epigastric pain. BP still elevated. Physical Exam Vital Signs: Last Vital Signs Temp 99.2 F 11/25/20 07:22 Pulse 85 11/25/20 07:46 Resp 18 11/25/20 07:22 BP 158/87 H 11/25/20 07:46 Pulse Ox 100 11/25/20 07:22 Body Mass Index 28.4 GENERAL APPEARANCE:? Distress due to abdominal pain NECK: no carotid bruit, no jugular venous distention. SKIN: no suspicious lesions, warm and dry. HEART: no murmurs, regular rate and rhythm. LUNGS: clear to auscultation bilaterally. ABDOMEN:? Epigastric tenderness, abdomen is soft otherwise. PERIPHERAL PULSES: equal. NEUROLOGIC: No gross deficits, AAO X 3 Results Labs and Meds Result diagrams: 11/25/20 08:25 11/25/20 08:25 Lab results: Laboratory Results - last 24 hr 11/24/20 11/24/20 11/25/20 17:54 20:26 07:28 WBC RBC Hgb Hct MCV MCH MCHC RDW Plt Count MPV Absolute Nucleated RBC Nucleated RBC % (auto) Sodium Potassium Chloride Carbon Dioxide Anion Gap BUN Creatinine Estim Creat Clear Calc Estimated GFR POC Glucose 170 H 161 H 123 H Random Glucose Calcium 11/25/20 11/25/20 08:25 08:25 WBC 11.5 H RBC 4.30 L Hgb 13.7 L Hct 39.6 L MCV 92.1 MCH 31.9 MCHC 34.6 RDW 12.2 Plt Count 258 MPV 10.9 Absolute Nucleated RBC 0.000 Nucleated RBC % (auto) 0.0 Sodium 137 Potassium 3.4 Chloride 99 Carbon Dioxide 29 Anion Gap 12 BUN 20 H Creatinine 1.28 Estim Creat Clear Calc 78.7 Estimated GFR 60 POC Glucose Random Glucose 118 H D Calcium 9.1 Progress Note: A&P Assessment and plan (1) Hypertensive urgency: Status: Acute Assessment and Plan: Elevated BP in the setting of abdominal pain due to gastritis/duodenitis. Home medications were resumed. Can titrate lisinopril. Still has epigastric pain which may be driving the BP higher. Fall Risk Details Current Medications: Current Medications Acetaminophen (Acetaminophen 325 Mg Tablet) 650 mg PO Q6H PRN PRN Reason: Pain, Mild (Pain Scale 1-3) Amlodipine Besylate (Amlodipine Besylate 10 Mg Tablet) 10 mg PO DAILY [facility]; Protocol Last Admin: 11/25/20 07:46 Dose: 10 mg Documented by: Aripiprazole (Aripiprazole 15 Mg Tablet) 15 mg PO DAILY [facility] Last Admin: 11/25/20 07:46 Dose: 15 mg Documented by: Aspirin (Aspirin Enteric Coated 81 Mg Tablet.Dr) 81 mg PO DAILY [facility] Last Admin: 11/25/20 07:45 Dose: 81 mg Documented by: Atorvastatin Calcium (Atorvastatin Calcium 80 Mg Tablet) 80 mg PO BEDTIME [facility] Last Admin: 11/24/20 20:49 Dose: 80 mg Documented by: Bupropion HCl (Bupropion Hcl Xl 300 Mg Tab.Er.24h) 300 mg PO DAILY [facility] Last Admin: 11/25/20 07:46 Dose: 300 mg Documented by: Dextrose (Dextrose 50 % 25 Gm/50 Ml Vial) 25 gm IVPUSH Q15M PRN; Protocol PRN Reason: per Hypoglycemia Standing Ord. Gabapentin (Gabapentin 600 Mg Tablet) 600 mg PO TID [facility] Last Admin: 11/25/20 07:45 Dose: 600 mg Documented by: Glucose (Glucose Gel 15 Gm Gel..Gram.) 15 gm PO Q15M PRN; Protocol PRN Reason: per Hypoglycemia Standing Ord. Hydroxyzine HCl (Hydroxyzine Hcl 25 Mg Tablet) 25 mg PO BEDTIME [facility] Last Admin: 11/24/20 20:48 Dose: 25 mg Documented by: Cefazolin Sodium/Dextrose (Ancef) 2 gm in 50 mls @ 100 mls/hr IV Q8H [facility] Last Infusion: 11/25/20 08:28 Dose: Infused Documented by: Promethazine HCl 12.5 mg/ (Sodium Chloride) 50.5 mls @ 202 mls/hr IV Q4H PRN PRN Reason: n/V not relieved by ZOfran Last Infusion: 11/24/20 18:40 Dose: Infused Documented by: Insulin Glargine (Insulin Glargine,Hum.Rec.Anlog 100 Unit/Ml 10 Ml Vial) 20 unit SUBCUT BEDTIME [facility] Last Admin: 11/24/20 20:47 Dose: 20 unit Documented by: Insulin Human Lispro (Insulin Lispro 100 Unit/Ml 3 Ml Vial) 0 unit SUBCUT QIDACHS [facility]; Protocol Last Admin: 11/25/20 07:42 Dose: Not Given Documented by: Lisinopril (Lisinopril 10 Mg Tablet) 10 mg PO DAILY [facility]; Protocol Last Admin: 11/25/20 07:46 Dose: 10 mg Documented by: Morphine Sulfate (Morphine Sulfate 4 Mg/Ml Cartridge) 4 mg IVPUSH Q4H PRN; Protocol PRN Reason: Pain, Severe (Pain Scale 7-10) Last Admin: 11/25/20 08:00 Dose: 4 mg Documented by: Nicotine (Nicotine 21 Mg Patch.Td24) 21 mg TRANSDERMA DAILY [facility] Last Admin: 11/25/20 07:49 Dose: 21 mg Documented by: Pantoprazole Sodium (Pantoprazole Sodium 40 Mg/10 Ml Vial) 40 mg IVPUSH BID@0630,1630 [facility] Last Admin: 11/25/20 05:45 Dose: 40 mg Documented by: Pharmacy Consult (Consult Rx Perform Med Rec) 1 each MISCELLANE ONCE PRN PRN Reason: Consult order Prazosin HCl (Prazosin Hcl 1 Mg Capsule) 2 mg PO BEDTIME [facility]; Protocol Last Admin: 11/24/20 20:48 Dose: 2 mg Documented by: Sodium Chloride (0.9 % Sodium Chloride Flush 3 Ml Syringe) 3 ml IVFLUSH QSHIFT [facility] Last Admin: 11/25/20 07:47 Dose: 3 ml Documented by: Sucralfate (Sucralfate 1 Gm Tablet) 1 gm PO TID [facility] Last Admin: 11/25/20 07:46 Dose: 1 gm Documented by: Trazodone HCl (Trazodone Hcl 100 Mg Tablet) 100 mg PO BEDTIME [facility] Last Admin: 11/24/20 20:49 Dose: 100 mg Documented by: Venlafaxine HCl (Venlafaxine Hcl Er 75 Mg Cap.Er.24h) 75 mg PO DAILY [facility] Last Admin: 11/25/20 07:46 Dose: 75 mg Documented by: Venlafaxine HCl (Venlafaxine Hcl Er 150 Mg Cap.Er.24h) 150 mg PO DAILY [facility] Last Admin: 11/25/20 07:46 Dose: 150 mg Documented by: Vitamin D (Cholecalciferol (Vitamin D3) 25 Mcg Tablet) 50 mcg PO DAILY [facility] Last Admin: 11/25/20 07:47 Dose: 50 mcg Documented by: Time Spent With Patient Time: Total time spent is greater than 50% in coordination of care (as documented) at patient's floor/unit and/or counseling patient: Time with patient: 15 - 24 minutes Progress Note: Quality Stroke Does the patient have a stroke diagnosis?: No Procedures Date of Service Date of Service: 11/25/20
[2020-11-25 11:35] LABS: Glucose, Whole Blood 121 mg/dL (60-115)
--- NOTE | 2020-11-25 12:13 | HO.POSTANES ---
Post Anesthesia Evaluation Post Anesthesia Evaluation Vital Signs: Vital Signs Temp Pulse Resp BP Pulse Ox 11/25/20 11:19 98 F 89 18 154/91 H 99 11/25/20 07:46 85 158/87 H 11/25/20 07:22 99.2 F 85 18 158/87 H 100 11/25/20 04:52 85 121/82 11/25/20 04:00 98.6 F 98 18 180/90 H 96 Anesthesia: Monitored Mental Status: Awake Pain Control: Satisfactory Nausea/Vomiting: None Hydration: Adequate Anesthesia-Related Issues: No Anes. Related Issues
--- NOTE | 2020-11-25 14:40 | MHC.CM.PN ---
Addendum entered by Marian Mcmillan RN 11/25/20 14:43: PT POSITIVE FOR OPIATES AND FENTANYL, PT REPORTS HE HASN'T USED IN TWO MONTHS AND THAT IT WAS A ONE TIME THING, PT INSISTS HE DID NOT USE AND DOES NOT KNOW WHY TEST WAS POSITIVE, PT DECLINES ANY NEED FOR SA TX OR MED ASSISTED TX. 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 PT VERIFIES PCP AND COMPLETED A HCP W/CM, PT PROVIDED W/EDUCATIONAL INFO, ORIGINAL AND 2 COPIES, COPY UPLOADED TO [employer] AND PLACED IN CHART. D/C PLAN: HOME W/COMFORT PLUS, PT MAY NEED ASSISTANCE W/VIGNESH [facility] CARE AGENT: ADINPastor LYNN JR(SON) [phone] ALTERNATE: ZAHIRA VIVAR (FRIEND) [phone]
--- NOTE | 2020-11-25 15:04 | MHC.CM.PN ---
[facility] REPORTING PT IS UNDER THERE CARE AND WILL RESUME SERVICE ONCE DISCHARGED
[2020-11-25 18:45] LABS: Glucose, Whole Blood 163 mg/dL (60-115)
[2020-11-25 20:11] LABS: Glucose, Whole Blood 134 mg/dL (60-115)
[2020-11-25] MEDS: hydrOXYzine HCL 25 MG TABLET PO (22:07)
[2020-11-25] MEDS: Prazosin HCL 1 MG CAPSULE 2 MG PO (22:07)
[2020-11-25] MEDS: traZODone HCL 100 MG TABLET PO (22:07)
[2020-11-25] MEDS: Atorvastatin Calcium 80 MG TABLET PO (22:07)
[2020-11-25] MEDS: Insulin Glargine,Hum.rec.anlog 100 UNIT/ML 10 ML VIAL 20 UNIT SUBCUT (22:09)
[2020-11-26] VITALS (9 sets, daily range): BP systolic 92–140; BP diastolic 64–84; PULSE 67–79; RESP 17–18; TEMP 36.1–36.9; O2SAT 95–99
[2020-11-26] MEDS: ceFAZolin Sodium/Dextrose,Iso 2 GM/50 ML PIGGYBACK IV ×3 (02:46→15:24)
[2020-11-26] MEDS: Pantoprazole Sodium 40 MG/10 ML VIAL IVPUSH (06:32)
[2020-11-26 07:24] LABS: Glucose, Whole Blood 108 mg/dL (60-115)
[2020-11-26] MEDS: Nicotine 21 MG PATCH.TD24 TRANSDERMA (08:27)
[2020-11-26] MEDS: 0.9 % Sodium Chloride Flush 3 ML SYRINGE IVFLUSH ×3 (08:27→21:27)
[2020-11-26] MEDS: ARIPiprazole 15 MG TABLET PO (08:28)
[2020-11-26] MEDS: Cholecalciferol (Vitamin D3) 25 MCG TABLET 50 MCG PO (08:28)
[2020-11-26] MEDS: Venlafaxine HCl ER 150 MG CAP.ER.24H PO (08:28)
[2020-11-26] MEDS: Venlafaxine HCl ER 75 MG CAP.ER.24H PO (08:28)
[2020-11-26] MEDS: lisinopriL 10 MG TABLET PO (08:28)
[2020-11-26] MEDS: amLODIPine Besylate 10 MG TABLET PO (08:28)
[2020-11-26] MEDS: buPROPion HCl XL 300 MG TAB.ER.24H PO (08:28)
[2020-11-26] MEDS: Gabapentin 600 MG TABLET PO ×3 (08:29→21:22)
[2020-11-26] MEDS: Aspirin Enteric Coated 81 MG TABLET.DR PO (08:29)
[2020-11-26] MEDS: Sucralfate 1 GM TABLET PO ×3 (08:29→21:22)
--- NOTE | 2020-11-26 11:21 | PM.DS ---
DS: Providers Provider Date of Service: 11/26/20 Date of admission: 11/23/20 15:54 Primary care physician: Unknown Physician Consults: 11/23/20 15:01 Consult to Gastroenterology Routine Consulting Provider: [facility] [place] [facility] Gastroenterology Services Reason for consultation: intractable N/V/epigastric pain Attending physician on discharge: [facility] Discharging clinician: Enedina Tracy DS: Diagnosis Discharge Diagnosis (1) Hypertensive urgency: Status: Acute (2) Intractable nausea and vomiting: Status: Acute (3) Gastritis: Status: Acute DS: Summary Hospital Course Hospital Course: From H&P on day of admission 50yo M with IDDM, HTN, HLD, and CAD who was recently hospitalized here 11/09-11/17/20 for sepsis due to left olecranon bursitis complicated by MSSA bacteremia.? PICC was placed and he was sent home on IV cefazolin 2g q8h.? He developed fairly acute onset epigastric pain, nausea, non-bloody non-bilious emesis 3d ago.? Pain is severe and constant.? He was seen in ED here 11/21/20; CT A/P did not show acute pathology.? He had mild leukocytosis.? Symptoms were attributed to gastritis and he was sent home on PPI, ondansetron, and sucralfate.? However, symptoms have worsened and he returned to the ED today.? He has no diarrhea.? He denies fever, cough, dyspnea, or chest pain.? He has history of 1-time cocaine abuse back in August but denies any cocaine use since then and denies use of marijuana.? Denies EtOH as well.? He has been unable to sleep due to the pain. In the ED, he was hypertensive, with mild leukocytosis.? Abdominla ultrasound was normal.? He was given IV fluids and IV ondansetron + metoclopramide + morphine + hydromorphone but still c/o severe abdominal pain. HTN. Dose of lisinopril was increased to 10 mg daily and Norvasc was added to his regimen. Blood pressure is better controlled. He should call to schedule follow-up appointment with PCP for close blood pressure monitoring. Epigastric abdominal pain/nausea vomiting. Patient was started on IV PPI and continued on home sucralfate. He was evaluated by GI who recommended endoscopy. Patient underwent endoscopy on 11/24/2020 which revealed evidence of gastritis/duodenitis. Pathology is pending at the time of discharge. He continued to have some nausea and vomiting and was treated with antiemetics. He underwent gastric emptying study which showed mild delay in gastric emptying with 27% retention of activity in the stomach after 4 hours. His abdominal pain slowly improved and his vomiting has resolved. This morning he is tolerating a full diet and is stable for discharge home. He will be discharged home with increased dose of omeprazole and p.r.n. Reglan with meals. 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 Time Spent with Patient Time attestation: Total time spent providing and/or coordinating discharge services: Discharge coordination time: Greater than 30 minutes Quality: Stroke Does the patient have a stroke diagnosis?: No Physical Exam Vital Signs: Vital Signs: Last Vital Signs Temp 97.3 F 11/26/20 07:11 Pulse 73 11/26/20 08:28 Resp 17 11/26/20 07:11 BP 140/84 H 11/26/20 08:28 Pulse Ox 99 11/26/20 07:11 Body Mass Index 28.4 Const: Nutritional Appearance: well nourished Orientation/consciousness: patient oriented x3 HENMT: Head: Yes normocephalic and Yes atraumatic Eyes: Sclerae: sclerae normal Resp: Effort & Inspection: normal respiratory effort and no respiratory distress Auscultation: clear to auscultation bilaterally Cardio: Rate: regular rate Rhythm: regular rhythm GI: Palpation (GI): Soft to palpation and nontender Neuro: General: patient oriented x3 Cranial nerves: Yes CN's II-XII intact bilaterally and Yes Bilaterally intact EOM present DS: Data Data Completed and Pending Completed studies during hospitalization [Text1]: Procedures Introduction of Other Thrombolytic into Peripheral Vein, Percutaneous Approach (09/26/20) Pending studies at discharge: Pending at discharge 11/24/20 12:18 Surgical [PTH] Routine Labs on day of discharge: Laboratory Results - last 24 hr 11/25/20 11/25/20 11/25/20 11:17 18:33 20:05 POC Glucose 121 H 163 H 134 H 11/26/20 07:09 POC Glucose 108 Discharge Plan Discharge Patient Disposition: Home, Self-Care Discharge Diagnosis: Gastritis/duodenitis nausea and vomiting Referrals: Tiffany Lizarraga MD [Physician] - 1 Week Physician,Unknown J [Primary Care Provider] - 1 Week Discharge Medications: New amlodipine 10 mg Tablet 10 mg PO DAILY 30 Days Qty: 30 RF: 0 metoclopramide HCl [Reglan] 5 mg tablet 5 mg PO TIDWM PRN (Reason: nausea and vomiting) 30 Days RF: 0 lisinopril 10 mg tablet 10 mg PO DAILY 30 Days Qty: 30 RF: 0 omeprazole 20 mg capsule,delayed release(DR/EC) 20 mg PO BID 30 Days Qty: 60 RF: 0 Continued insulin aspart U-100 [Novolog Flexpen U-100 Insulin] 100 unit/mL (3 mL) insulin pen 15 unit subcut TID Qty: 15 RF: 3 aspirin 81 mg tablet,delayed release (DR/EC) 81 mg PO DAILY Qty: 90 RF: 0 atorvastatin [Lipitor] 80 mg tablet 80 mg PO BEDTIME Qty: 30 RF: 0 gabapentin 600 mg tablet 1 tab PO TID RF: 0 nitroglycerin 0.3 mg tablet, sublingual 1 tab sublingual USEASDIRECTD RF: 0 metformin 500 mg tablet extended release 24 hr 2 tab PO BID RF: 0 hydroxyzine pamoate 25 mg capsule 1 cap PO BEDTIME RF: 0 venlafaxine 75 mg Capsule,Extended Release 24hr 75 mg PO DAILY RF: 0 prazosin 2 mg capsule 1 cap PO BEDTIME RF: 0 nicotine 21 mg/24 hr Patch 24 Hour 21 mg transdermal DAILY Qty: 28 RF: 0 cefazolin in dextrose (iso-os) 2 gram/50 mL Piggyback 50 ml IV Q8H 26 Days Qty: 78 RF: 0 insulin degludec 100 unit/mL (3 mL) insulin pen 40 unit subcut QPM 30 Days Qty: 30 RF: 1 sucralfate 1 gram tablet 1 g PO TID Qty: 90 RF: 0 bupropion HCl 300 mg tablet extended release 24 hr 300 mg PO DAILY RF: 0 aripiprazole 15 mg tablet 15 mg PO DAILY RF: 0 trazodone 100 mg tablet 100 mg PO BEDTIME RF: 0 venlafaxine 150 mg capsule,extended release 24hr 150 mg PO DAILY RF: 0 cholecalciferol (vitamin D3) 50 mcg (2,000 unit) capsule 50 mcg PO QAM RF: 0 Citrucel 500 mg tablet 500 mg PO TID Qty: 90 RF: 2 Trulicity 1.5 mg/0.5 mL pen injector 1.5 mg subcut QWEEK 28 Days Qty: 2 RF: 3 Changed omeprazole 20 mg capsule,delayed release(DR/EC) 20 mg PO BID Qty: 0 RF: 0 Discontinued lisinopril 5 mg tablet 5 mg PO DAILY Qty: 30 RF: 0 ondansetron 4 mg tablet,disintegrating 4 mg PO Q6-8H PRN (Reason: nausea and vomiting) Qty: 15 RF: 0 No Action (DME) pen needle, diabetic 32 gauge x 5/32 needle See Rx Instructions ea .ROUTE .MEDSUPPLY Qty: 50 RF: 0 (DME) lancets 33 gauge misc See Rx Instructions ea Not Applicable BID Qty: 100 RF: 0 (DME) FreeStyle Lite Strips Strip See Rx Instructions .ROUTE .MEDSUPPLY Qty: 150 RF: 11 (DME) lancets [TRUEplus Lancets] 33 gauge misc See Rx Instructions .ROUTE .MEDSUPPLY Qty: 200 RF: 11 Activity on Discharge: As tolerated Stand Alone Forms: Patient Portal Discharge page Care Plan Goals: Stay healthy and out of the hospital Health Concerns: Epigastric abdominal pain Nausea, vomiting Gastritis/duodenitis Delayed gastric emptying Uncontrolled blood pressure Plan of Treatment: Omeprazole dose has been increased to twice daily A new blood pressure medication has been added to your regimen, amlodipine. Please take as prescribed. Please call to schedule follow-up appointment with your PCP for close blood pressure monitoring Can take Reglan prior to meals as needed for nausea and vomiting. stop taking zofran. call to schedule follow up appointment with GI clinic Assessment: Admitted for nausea and vomiting as well as uncontrolled blood pressure and found to have gastritis/duodenitis on EGD also with mild delay on gastric emptying study
[2020-11-26 11:38] LABS: Glucose, Whole Blood 94 mg/dL (60-115)
--- NOTE | 2020-11-26 14:16 | HO.PM.IMPN ---
Subjective Subjective Date of Service: 11/26/20 Interval History: Seen and examined this morning Nausea, vomiting, abdominal pain improved Asking to eat Review of Systems Review of Systems: Yes all other systems are reviewed and are negative Constitutional Constitutional: Denies chills and Denies fever(s) Cardiovascular Cardiovascular: Denies chest pain Respiratory Respiratory: Denies cough Gastrointestinal Gastrointestinal: Denies abdominal pain Physical Exam Vital Signs: Vital Signs: Last Vital Signs Temp 97.3 F 11/26/20 11:21 Pulse 76 11/26/20 11:21 Resp 17 11/26/20 11:21 BP 122/79 11/26/20 11:21 Pulse Ox 99 11/26/20 11:21 Body Mass Index 28.4 Const: General: comfortable, no acute distress, awake and Physically active Nutritional Appearance: well nourished Orientation/consciousness: patient oriented x3 HENMT: Head: Yes normocephalic and Yes atraumatic Eyes: Sclerae: sclerae normal Chest: Chest palpation & inspection: normal inspection of the chest Resp: Effort & Inspection: normal respiratory effort and no respiratory distress Auscultation: clear to auscultation bilaterally Cardio: Rate: regular rate Rhythm: regular rhythm GI: Other: mild epigastric tenderness Palpation (GI): Soft to palpation and nontender Neuro: General: patient oriented x3 Cranial nerves: Yes CN's II-XII intact bilaterally and Yes Bilaterally intact EOM present Objective Data Active Medications Acetaminophen (Acetaminophen 325 Mg Tablet) 650 mg PO Q6H PRN PRN Reason: Pain, Mild (Pain Scale 1-3) Amlodipine Besylate (Amlodipine Besylate 10 Mg Tablet) 10 mg PO DAILY [facility]; Protocol Last Admin: 11/26/20 08:28 Dose: 10 mg Documented by: ARASELI Aripiprazole (Aripiprazole 15 Mg Tablet) 15 mg PO DAILY [facility] Last Admin: 11/26/20 08:28 Dose: 15 mg Documented by: ARASELI Aspirin (Aspirin Enteric Coated 81 Mg Tablet.) 81 mg PO DAILY [facility] Last Admin: 11/26/20 08:29 Dose: 81 mg Documented by: ARASELI Atorvastatin Calcium (Atorvastatin Calcium 80 Mg Tablet) 80 mg PO BEDTIME [facility] Last Admin: 11/25/20 22:07 Dose: 80 mg Documented by: KATHERYN Bupropion HCl (Bupropion Hcl Xl 300 Mg Tab.Er.24h) 300 mg PO DAILY [facility] Last Admin: 11/26/20 08:28 Dose: 300 mg Documented by: ARASELI Dextrose (Dextrose 50 % 25 Gm/50 Ml Vial) 25 gm IVPUSH Q15M PRN; Protocol PRN Reason: per Hypoglycemia Standing Ord. Gabapentin (Gabapentin 600 Mg Tablet) 600 mg PO TID [facility] Last Admin: 11/26/20 08:29 Dose: 600 mg Documented by: ARASELI Glucose (Glucose Gel 15 Gm Gel..Gram.) 15 gm PO Q15M PRN; Protocol PRN Reason: per Hypoglycemia Standing Ord. Hydroxyzine HCl (Hydroxyzine Hcl 25 Mg Tablet) 25 mg PO BEDTIME [facility] Last Admin: 11/25/20 22:07 Dose: 25 mg Documented by: KATHERYN Cefazolin Sodium/Dextrose (Ancef) 2 gm in 50 mls @ 100 mls/hr IV Q8H [facility] Last Infusion: 11/26/20 09:15 Dose: 0 mls/hr Documented by: ARASELI Promethazine HCl 12.5 mg/ (Sodium Chloride) 50.5 mls @ 202 mls/hr IV Q4H PRN PRN Reason: n/V not relieved by ZOfran Last Infusion: 11/24/20 18:40 Dose: 0 mls/hr Documented by: MARY Insulin Glargine (Insulin Glargine,Hum.Rec.Anlog 100 Unit/Ml 10 Ml Vial) 20 unit SUBCUT BEDTIME [facility] Last Admin: 11/25/20 22:09 Dose: 20 unit Documented by: KATHERYN Insulin Human Lispro (Insulin Lispro 100 Unit/Ml 3 Ml Vial) 0 unit SUBCUT QIDACHS [facility]; Protocol Last Admin: 11/26/20 11:44 Dose: Not Given Documented by: ARASELI Non-Admin Reason: No Insulin Coverage Lisinopril (Lisinopril 10 Mg Tablet) 10 mg PO DAILY [facility]; Protocol Last Admin: 11/26/20 08:28 Dose: 10 mg Documented by: ARASELI Morphine Sulfate (Morphine Sulfate 4 Mg/Ml Cartridge) 4 mg IVPUSH Q4H PRN; Protocol PRN Reason: Pain, Severe (Pain Scale 7-10) Last Admin: 11/25/20 08:00 Dose: 4 mg Documented by: AMINAH Nicotine (Nicotine 21 Mg Patch.Td24) 21 mg TRANSDERMA DAILY [facility] Last Admin: 11/26/20 08:27 Dose: 21 mg Documented by: ARASELI Pantoprazole Sodium (Pantoprazole Sodium 40 Mg/10 Ml Vial) 40 mg IVPUSH BID@0630,1630 [facility] Last Admin: 11/26/20 06:32 Dose: 40 mg Documented by: KATHERYN Pharmacy Consult (Consult Rx Perform Med Rec) 1 each MISCELLANE ONCE PRN PRN Reason: Consult order Prazosin HCl (Prazosin Hcl 1 Mg Capsule) 2 mg PO BEDTIME [facility]; Protocol Last Admin: 11/25/20 22:07 Dose: 2 mg Documented by: KATHERYN Sodium Chloride (0.9 % Sodium Chloride Flush 3 Ml Syringe) 3 ml IVFLUSH QSHIFT [facility] Last Admin: 11/26/20 08:27 Dose: 3 ml Documented by: ARASELI Sucralfate (Sucralfate 1 Gm Tablet) 1 gm PO TID [facility] Last Admin: 11/26/20 08:29 Dose: 1 gm Documented by: ARASELI Trazodone HCl (Trazodone Hcl 100 Mg Tablet) 100 mg PO BEDTIME [facility] Last Admin: 11/25/20 22:07 Dose: 100 mg Documented by: KATHERYN Venlafaxine HCl (Venlafaxine Hcl Er 75 Mg Cap.Er.24h) 75 mg PO DAILY [facility] Last Admin: 11/26/20 08:28 Dose: 75 mg Documented by: ARASELI Venlafaxine HCl (Venlafaxine Hcl Er 150 Mg Cap.Er.24h) 150 mg PO DAILY [facility] Last Admin: 11/26/20 08:28 Dose: 150 mg Documented by: ARASELI Vitamin D (Cholecalciferol (Vitamin D3) 25 Mcg Tablet) 50 mcg PO DAILY [facility] Last Admin: 11/26/20 08:28 Dose: 50 mcg Documented by: ARASELI Labs CBC & Chem 7: 11/25/20 08:25 11/25/20 08:25 Labs: Laboratory Results - last 24 hr 11/25/20 11/25/20 11/26/20 18:33 20:05 07:09 POC Glucose 163 H 134 H 108 11/26/20 11:17 POC Glucose 94 Assessment and Plan (1) Gastritis: Status: Acute (2) Staphylococcus aureus bacteremia: Status: Acute Assessment and Plan: 50yo M with IDDM, HTN, HLD, and CAD who was recently hospitalized here 11/09-11/17/20 for sepsis due to left olecranon bursitis complicated by MSSA bacteremia, presenting with epigastric pain and intractable nausea and vomiting, and hypertensive urgency nausea/vomiting/abdominal pain. resolved Seen by GI, s/p endoscopy showing gastritis/duodenitis -transition to p.o. omeprazole, continue sucralfate -tolerating full diet HTN urgency BP better controlled - continue increased dose of lisinopril - continue amlodipine MSSA bacteremia, olecranon bursitis from previous admission - continue IV cefazolin to end 12/08 mild transaminasemia [AST] trednding down hepatitis screen negative mild leukocytosis - ?reactive. no sign of infection. improving mild renal insufficiency does not meet criteria for TJ creatinine improving CAD HLD - continue statin, ASA DM2, A1c 7.4 (11/18/20) - basal/bolus insulin; hold MTF neuropathy - continue gabapentin mood disorder - continue bupropion, venlafaxine, aripiprazole, trazodone, prazosin tobacco abuse - NRT VTE ppx - LMWH attending: dr. mason dispo: needs plan for IV abx for olecranon bursitis/MSSA bacteremia; Tox screen + for fentanyl on admission Quality Stroke Does the patient have a stroke diagnosis?: No VTE Prior VTE?: No VTE Risk Level:: Medical - moderate - high VTE Device Contraindication: N/A - Device Ordered VTE Drug Contraindication: N/A - Med Ordered
--- NOTE | 2020-11-26 14:43 | MHC.CM.PN ---
ACCORDING TO [facility] LIAISON, PATIENT HAD STOPPED TAKING HIS ANTIBIOTIC, STATTING THAT IT IS THE REASON HE WAS HAVING GASTRIC ISSUES. PATIENT IS AWARE THAT THIS IS NOT THE CASE; HOWEVER, PATIENT TOX SCREEN WAS POSITIVE FOR OPIATES AND FENTANYL. [facility] MADE AWARE. PLAN IS FOR REHAB IF HE IS TO CONTINUE WITH HIS IV ABX. (CASE DISCUSSED WITH Tim) PATIENT TELLS THIS TELEHEALTH NURSE EDUCATOR THAT HE WAS VACCINATED AGAINST COVID-19 WITH [facility]. HE BELIEVES THIS DOSE WAS GIVEN IN [facility] AND [facility] REFERRALS PLACED
[2020-11-26] MEDS: Omeprazole 20 MG CAPSULE.DR PO (15:27)
[2020-11-26 16:14] LABS: Glucose, Whole Blood 152 mg/dL (60-115)
[2020-11-26] MEDS: Insulin Lispro 100 UNIT/ML 3 ML VIAL SUBCUT ×2 (17:00→21:26)
[2020-11-26 20:41] LABS: Glucose, Whole Blood 211 mg/dL (60-115)
[2020-11-26] MEDS: Prazosin HCL 1 MG CAPSULE 2 MG PO (21:21)
[2020-11-26] MEDS: traZODone HCL 100 MG TABLET PO (21:22)
[2020-11-26] MEDS: hydrOXYzine HCL 25 MG TABLET PO (21:22)
[2020-11-26] MEDS: Atorvastatin Calcium 80 MG TABLET PO (21:22)
[2020-11-26] MEDS: Insulin Glargine,Hum.rec.anlog 100 UNIT/ML 10 ML VIAL 20 UNIT SUBCUT (21:23)
[2020-11-27] MEDS: ceFAZolin Sodium/Dextrose,Iso 2 GM/50 ML PIGGYBACK IV ×4 (00:06→23:41)
[2020-11-27 03:40] VITALS: BP 100/63; PULSE 64; RESP 18; TEMP 36.1; O2SAT 97
[2020-11-27] MEDS: Omeprazole 20 MG CAPSULE.DR PO ×2 (06:30→16:21)
[2020-11-27 07:17] VITALS: BP 112/69; PULSE 74; RESP 18; TEMP 36.1; O2SAT 99
[2020-11-27 07:29] LABS: Glucose, Whole Blood 150 mg/dL (60-115)
[2020-11-27] MEDS: lisinopriL 10 MG TABLET PO (08:04)
[2020-11-27] MEDS: ARIPiprazole 15 MG TABLET PO (08:04)
[2020-11-27] MEDS: Gabapentin 600 MG TABLET PO ×3 (08:04→21:28)
[2020-11-27] MEDS: Aspirin Enteric Coated 81 MG TABLET.DR PO (08:04)
[2020-11-27] MEDS: Cholecalciferol (Vitamin D3) 25 MCG TABLET 50 MCG PO (08:04)
[2020-11-27] MEDS: Venlafaxine HCl ER 75 MG CAP.ER.24H PO (08:04)
[2020-11-27] MEDS: buPROPion HCl XL 300 MG TAB.ER.24H PO (08:04)
[2020-11-27] MEDS: Venlafaxine HCl ER 150 MG CAP.ER.24H PO (08:04)
[2020-11-27] MEDS: Sucralfate 1 GM TABLET PO ×3 (08:04→21:28)
[2020-11-27] MEDS: amLODIPine Besylate 10 MG TABLET PO (08:04)
[2020-11-27] MEDS: Nicotine 21 MG PATCH.TD24 TRANSDERMA (08:05)
[2020-11-27] MEDS: 0.9 % Sodium Chloride Flush 3 ML SYRINGE IVFLUSH ×3 (08:05→21:29)
[2020-11-27 11:38] VITALS: BP 111/68; PULSE 71; RESP 17; TEMP 36.8; O2SAT 98
[2020-11-27 11:38] LABS: Glucose, Whole Blood 232 mg/dL (60-115)
--- NOTE | 2020-11-27 11:40 | HO.PM.IMPN ---
Subjective Subjective Date of Service: 11/27/20 Interval History: Seen and examined this morning Follow-up for abdominal pain No abdominal pain, no nausea, vomiting Review of Systems Review of Systems: Yes all other systems are reviewed and are negative Constitutional Constitutional: Denies chills and Denies fever(s) Cardiovascular Cardiovascular: Denies chest pain Respiratory Respiratory: Denies cough Gastrointestinal Gastrointestinal: Denies abdominal pain Physical Exam Vital Signs: Vital Signs: Last Vital Signs Temp 98.2 F 11/27/20 11:38 Pulse 71 11/27/20 11:38 Resp 17 11/27/20 11:38 BP 111/68 11/27/20 11:38 Pulse Ox 98 11/27/20 11:38 Body Mass Index 28.4 Const: General: comfortable, no acute distress, awake and Physically active Nutritional Appearance: well nourished Orientation/consciousness: patient oriented x3 HENMT: Head: Yes normocephalic and Yes atraumatic Eyes: Sclerae: sclerae normal Chest: Chest palpation & inspection: normal inspection of the chest Resp: Effort & Inspection: normal respiratory effort and no respiratory distress Auscultation: clear to auscultation bilaterally Cardio: Rate: regular rate Rhythm: regular rhythm GI: Other: mild epigastric tenderness Palpation (GI): Soft to palpation and nontender Skin: General skin exam: no rashes or lesions noted Neuro: General: patient oriented x3 Cranial nerves: Yes CN's II-XII intact bilaterally and Yes Bilaterally intact EOM present Extrem: General: Yes normal to inspection Objective Data Active Medications Acetaminophen (Acetaminophen 325 Mg Tablet) 650 mg PO Q6H PRN PRN Reason: Pain, Mild (Pain Scale 1-3) Amlodipine Besylate (Amlodipine Besylate 10 Mg Tablet) 10 mg PO DAILY [facility]; Protocol Last Admin: 11/27/20 08:04 Dose: 10 mg Documented by: YANA Aripiprazole (Aripiprazole 15 Mg Tablet) 15 mg PO DAILY [facility] Last Admin: 11/27/20 08:04 Dose: 15 mg Documented by: YANA Aspirin (Aspirin Enteric Coated 81 Mg Tablet.) 81 mg PO DAILY [facility] Last Admin: 11/27/20 08:04 Dose: 81 mg Documented by: YANA Atorvastatin Calcium (Atorvastatin Calcium 80 Mg Tablet) 80 mg PO BEDTIME [facility] Last Admin: 11/26/20 21:22 Dose: 80 mg Documented by: KATHERYN Bupropion HCl (Bupropion Hcl Xl 300 Mg Tab.Er.24h) 300 mg PO DAILY [facility] Last Admin: 11/27/20 08:04 Dose: 300 mg Documented by: YANA Dextrose (Dextrose 50 % 25 Gm/50 Ml Vial) 25 gm IVPUSH Q15M PRN; Protocol PRN Reason: per Hypoglycemia Standing Ord. Gabapentin (Gabapentin 600 Mg Tablet) 600 mg PO TID [facility] Last Admin: 11/27/20 08:04 Dose: 600 mg Documented by: YANA Glucose (Glucose Gel 15 Gm Gel..Gram.) 15 gm PO Q15M PRN; Protocol PRN Reason: per Hypoglycemia Standing Ord. Hydroxyzine HCl (Hydroxyzine Hcl 25 Mg Tablet) 25 mg PO BEDTIME [facility] Last Admin: 11/26/20 21:22 Dose: 25 mg Documented by: KATHERYN Cefazolin Sodium/Dextrose (Ancef) 2 gm in 50 mls @ 100 mls/hr IV Q8H [facility] Last Infusion: 11/27/20 08:35 Dose: 0 mls/hr Documented by: YANA Insulin Glargine (Insulin Glargine,Hum.Rec.Anlog 100 Unit/Ml 10 Ml Vial) 20 unit SUBCUT BEDTIME [facility] Last Admin: 11/26/20 21:23 Dose: 20 unit Documented by: KATHERYN Insulin Human Lispro (Insulin Lispro 100 Unit/Ml 3 Ml Vial) 0 unit SUBCUT QIDACHS [facility]; Protocol Last Admin: 11/27/20 07:26 Dose: Not Given Documented by: YANA Non-Admin Reason: No Insulin Coverage Lisinopril (Lisinopril 10 Mg Tablet) 10 mg PO DAILY [facility]; Protocol Last Admin: 11/27/20 08:04 Dose: 10 mg Documented by: YANA Morphine Sulfate (Morphine Sulfate 4 Mg/Ml Cartridge) 4 mg IVPUSH Q4H PRN; Protocol PRN Reason: Pain, Severe (Pain Scale 7-10) Last Admin: 11/25/20 08:00 Dose: 4 mg Documented by: AMINAH Nicotine (Nicotine 21 Mg Patch.Td24) 21 mg TRANSDERMA DAILY [facility] Last Admin: 11/27/20 08:05 Dose: 21 mg Documented by: YANA Omeprazole (Omeprazole 20 Mg Capsule.) 20 mg PO BID@6730,9010 [facility] Last Admin: 11/27/20 06:30 Dose: 20 mg Documented by: KATHERYN Pharmacy Consult (Consult Rx Perform Med Rec) 1 each MISCELLANE ONCE PRN PRN Reason: Consult order Prazosin HCl (Prazosin Hcl 1 Mg Capsule) 2 mg PO BEDTIME [facility]; Protocol Last Admin: 11/26/20 21:21 Dose: 2 mg Documented by: KATHERYN Sodium Chloride (0.9 % Sodium Chloride Flush 3 Ml Syringe) 3 ml IVFLUSH QSHIFT [facility] Last Admin: 11/27/20 08:05 Dose: 3 ml Documented by: YANA Sucralfate (Sucralfate 1 Gm Tablet) 1 gm PO TID [facility] Last Admin: 11/27/20 08:04 Dose: 1 gm Documented by: YANA Trazodone HCl (Trazodone Hcl 100 Mg Tablet) 100 mg PO BEDTIME [facility] Last Admin: 11/26/20 21:22 Dose: 100 mg Documented by: KATHERYN Venlafaxine HCl (Venlafaxine Hcl Er 75 Mg Cap.Er.24h) 75 mg PO DAILY [facility] Last Admin: 11/27/20 08:04 Dose: 75 mg Documented by: YANA Venlafaxine HCl (Venlafaxine Hcl Er 150 Mg Cap.Er.24h) 150 mg PO DAILY [facility] Last Admin: 11/27/20 08:04 Dose: 150 mg Documented by: YANA Vitamin D (Cholecalciferol (Vitamin D3) 25 Mcg Tablet) 50 mcg PO DAILY [facility] Last Admin: 11/27/20 08:04 Dose: 50 mcg Documented by: YANA Labs CBC & Chem 7: 11/25/20 08:25 11/25/20 08:25 Labs: Laboratory Results - last 24 hr 11/26/20 11/26/20 11/27/20 15:55 20:33 07:16 POC Glucose 152 H 211 H 150 H 11/27/20 11:34 POC Glucose 232 H Assessment and Plan (1) Gastritis: Status: Acute (2) Intractable nausea and vomiting: Status: Acute (3) Staphylococcus aureus bacteremia: Status: Acute Assessment and Plan: 50yo M with IDDM, HTN, HLD, and CAD who was recently hospitalized here 11/09-11/17/20 for sepsis due to left olecranon bursitis complicated by MSSA bacteremia, presenting with epigastric pain and intractable nausea and vomiting, and hypertensive urgency nausea/vomiting/abdominal pain. resolved Seen by GI, s/p endoscopy showing gastritis/duodenitis -transition to p.o. omeprazole, continue sucralfate -tolerating full diet HTN urgency BP controlled - continue increased dose of lisinopril - continue amlodipine MSSA bacteremia, olecranon bursitis from previous admission - continue IV cefazolin to end 12/08 mild transaminasemia [AST] trednding down hepatitis screen negative mild leukocytosis - ?reactive. no sign of infection. improving mild renal insufficiency does not meet criteria for TJ creatinine improving CAD HLD - continue statin, ASA DM2, A1c 7.4 (11/18/20) - basal/bolus insulin; hold MTF neuropathy - continue gabapentin mood disorder - continue bupropion, venlafaxine, aripiprazole, trazodone, prazosin tobacco abuse - NRT VTE ppx - LMWH attending: dr. hughes dispo: needs plan for IV abx for olecranon bursitis/MSSA bacteremia; Tox screen + for fentanyl on admission; will likely need d/c to SNF to finish course of abx; will discuss duration of abx with ID Quality Stroke Does the patient have a stroke diagnosis?: No VTE Prior VTE?: No VTE Risk Level:: Medical - moderate - high VTE Device Contraindication: N/A - Device Ordered VTE Drug Contraindication: N/A - Med Ordered
[2020-11-27] MEDS: Insulin Lispro 100 UNIT/ML 3 ML VIAL SUBCUT ×2 (12:08→21:29)
[2020-11-27 15:16] VITALS: BP 130/81; PULSE 83; RESP 18; TEMP 36.6; O2SAT 99
[2020-11-27 16:14] LABS: Glucose, Whole Blood 144 mg/dL (60-115)
[2020-11-27 19:08] VITALS: BP 103/66; PULSE 78; RESP 18; TEMP 36.3; O2SAT 98
[2020-11-27 20:19] LABS: Glucose, Whole Blood 219 mg/dL (60-115)
[2020-11-27] MEDS: traZODone HCL 100 MG TABLET PO (21:28)
[2020-11-27] MEDS: Prazosin HCL 1 MG CAPSULE 2 MG PO (21:28)
[2020-11-27] MEDS: hydrOXYzine HCL 25 MG TABLET PO (21:28)
[2020-11-27] MEDS: Insulin Glargine,Hum.rec.anlog 100 UNIT/ML 10 ML VIAL 20 UNIT SUBCUT (21:28)
[2020-11-27] MEDS: Atorvastatin Calcium 80 MG TABLET PO (21:28)
[2020-11-27] MEDS: Acetaminophen 325 MG TABLET 650 MG PO (23:44)
[2020-11-28] VITALS (10 sets, daily range): BP systolic 88–159; BP diastolic 52–92; PULSE 75–97; RESP 16–18; TEMP 36.1–36.9; O2SAT 97–100
[2020-11-28] MEDS: Omeprazole 20 MG CAPSULE.DR PO ×2 (05:20→17:23)
[2020-11-28 07:36] LABS: Glucose, Whole Blood 169 mg/dL (60-115)
[2020-11-28] MEDS: 0.9 % Sodium Chloride Flush 3 ML SYRINGE IVFLUSH ×2 (08:23→15:15)
[2020-11-28] MEDS: ceFAZolin Sodium/Dextrose,Iso 2 GM/50 ML PIGGYBACK IV ×2 (08:23→15:14)
[2020-11-28] MEDS: Insulin Lispro 100 UNIT/ML 3 ML VIAL SUBCUT ×4 (08:23→22:13)
[2020-11-28] MEDS: Cholecalciferol (Vitamin D3) 25 MCG TABLET 50 MCG PO (08:24)
[2020-11-28] MEDS: ARIPiprazole 15 MG TABLET PO (08:24)
[2020-11-28] MEDS: Aspirin Enteric Coated 81 MG TABLET.DR PO (08:24)
[2020-11-28] MEDS: buPROPion HCl XL 300 MG TAB.ER.24H PO (08:25)
[2020-11-28] MEDS: Nicotine 21 MG PATCH.TD24 TRANSDERMA (08:25)
[2020-11-28] MEDS: Venlafaxine HCl ER 75 MG CAP.ER.24H PO (08:25)
[2020-11-28] MEDS: Venlafaxine HCl ER 150 MG CAP.ER.24H PO (08:25)
[2020-11-28] MEDS: Sucralfate 1 GM TABLET PO ×3 (08:25→22:12)
[2020-11-28] MEDS: Gabapentin 600 MG TABLET PO ×3 (08:25→22:13)
[2020-11-28 11:48] LABS: Glucose, Whole Blood 160 mg/dL (60-115)
[2020-11-28] MEDS: 0.9 % Sodium Chloride 1,000 ML 100 ML IVCONT (15:13)
--- NOTE | 2020-11-28 15:16 | P.PNIM_ITS ---
Subjective Subjective Date of Service: 11/28/20 Interval History: Events from last night noted patient felt dizzy while walking to the bathroom therefore sat down on the floor without loss of consciousness no head injury again this morning felt lightheaded blood pressure noted to be low, denies abdominal pain no nausea, no vomiting, patient adamantly denies use of illicit drugs. Review of Systems General no headache, + dizziness, no fever chills. CVS no chest pain, no palpitation. Respiratory no cough no shortness of breath Gastrointestinal no nausea, no vomiting, no abdominal pain Physical Exam Vital Signs: Vital Signs: Last Vital Signs Temp 97.2 F 11/28/20 12:00 Pulse 92 11/28/20 14:00 Resp 17 11/28/20 12:00 BP 88/52 L 11/28/20 14:00 Pulse Ox 97 11/28/20 12:00 Body Mass Index 28.4 General alert oriented x3, no acute distress. Neck supple no JVD. CVS regular rate rhythm, Respiratory lungs clear to auscultation, no respiratory distress, no wheeze, no rhonchi. Gastrointestinal abdomen soft, nontender, bowel sounds audible, no guarding , no rigidity. Extremities no edema. Neuro nonfocal ,speech clear. Skin no rash Psych appropriate affect Objective Data Active Medications Acetaminophen (Acetaminophen 325 Mg Tablet) 650 mg PO Q6H PRN PRN Reason: Pain, Mild (Pain Scale 1-3) Last Admin: 11/27/20 23:44 Dose: 650 mg Documented by: HEAVEN Amlodipine Besylate (Amlodipine Besylate 5 Mg Tablet) 5 mg PO DAILY [facility]; Protocol Last Admin: 11/28/20 09:16 Dose: Not Given Documented by: YANA Non-Admin Reason: Physician Held Med Aripiprazole (Aripiprazole 15 Mg Tablet) 15 mg PO DAILY [facility] Last Admin: 11/28/20 08:24 Dose: 15 mg Documented by: YANA Aspirin (Aspirin Enteric Coated 81 Mg Tablet.) 81 mg PO DAILY [facility] Last Admin: 11/28/20 08:24 Dose: 81 mg Documented by: YANA Atorvastatin Calcium (Atorvastatin Calcium 80 Mg Tablet) 80 mg PO BEDTIME [facility] Last Admin: 11/27/20 21:28 Dose: 80 mg Documented by: HEAVEN Bupropion HCl (Bupropion Hcl Xl 300 Mg Tab.Er.24h) 300 mg PO DAILY [facility] Last Admin: 11/28/20 08:25 Dose: 300 mg Documented by: YANA Dextrose (Dextrose 50 % 25 Gm/50 Ml Vial) 25 gm IVPUSH Q15M PRN; Protocol PRN Reason: per Hypoglycemia Standing Ord. Gabapentin (Gabapentin 600 Mg Tablet) 600 mg PO TID [facility] Last Admin: 11/28/20 15:13 Dose: 600 mg Documented by: YANA Glucose (Glucose Gel 15 Gm Gel..Gram.) 15 gm PO Q15M PRN; Protocol PRN Reason: per Hypoglycemia Standing Ord. Hydroxyzine HCl (Hydroxyzine Hcl 25 Mg Tablet) 25 mg PO BEDTIME [facility] Last Admin: 11/27/20 21:28 Dose: 25 mg Documented by: HEAVEN Cefazolin Sodium/Dextrose (Ancef) 2 gm in 50 mls @ 100 mls/hr IV Q8H [facility] Last Admin: 11/28/20 15:14 Dose: 100 mls/hr Documented by: YANA Sodium Chloride (Ns) 1,000 mls @ 100 mls/hr IVCONT .Q10H [facility] Stop: 11/29/20 01:14 Last Admin: 11/28/20 15:13 Dose: 100 mls/hr Documented by: YANA Insulin Glargine (Insulin Glargine,Hum.Rec.Anlog 100 Unit/Ml 10 Ml Vial) 20 unit SUBCUT BEDTIME [facility] Last Admin: 11/27/20 21:28 Dose: 20 unit Documented by: HEAVEN Insulin Human Lispro (Insulin Lispro 100 Unit/Ml 3 Ml Vial) 0 unit SUBCUT [facility] [place]; Protocol Last Admin: 11/28/20 11:50 Dose: 2 unit Documented by: YANA Lisinopril (Lisinopril 10 Mg Tablet) 10 mg PO DAILY [facility]; Protocol Last Admin: 11/28/20 09:16 Dose: Not Given Documented by: YANA Non-Admin Reason: Physician Held Med Morphine Sulfate (Morphine Sulfate 4 Mg/Ml Cartridge) 4 mg IVPUSH Q4H PRN; Protocol PRN Reason: Pain, Severe (Pain Scale 7-10) Last Admin: 11/25/20 08:00 Dose: 4 mg Documented by: AMINAH Nicotine (Nicotine 21 Mg Patch.Td24) 21 mg TRANSDERMA DAILY [facility] Last Admin: 11/28/20 08:25 Dose: 21 mg Documented by: YANA Omeprazole (Omeprazole 20 Mg Capsule.) 20 mg PO BID@0630,1630 [facility] Last Admin: 11/28/20 05:20 Dose: 20 mg Documented by: HEAVEN Pharmacy Consult (Consult Rx Perform Med Rec) 1 each MISCELLANE ONCE PRN PRN Reason: Consult order Prazosin HCl (Prazosin Hcl 1 Mg Capsule) 2 mg PO BEDTIME [facility]; Protocol Last Admin: 11/27/20 21:28 Dose: 2 mg Documented by: HEAVEN Sodium Chloride (0.9 % Sodium Chloride Flush 3 Ml Syringe) 3 ml IVFLUSH QSHIFT [facility] Last Admin: 11/28/20 15:15 Dose: 3 ml Documented by: YANA Sucralfate (Sucralfate 1 Gm Tablet) 1 gm PO TID [facility] Last Admin: 11/28/20 15:13 Dose: 1 gm Documented by: YANA Trazodone HCl (Trazodone Hcl 100 Mg Tablet) 100 mg PO BEDTIME [facility] Last Admin: 11/27/20 21:28 Dose: 100 mg Documented by: HEAVEN Venlafaxine HCl (Venlafaxine Hcl Er 75 Mg Cap.Er.24h) 75 mg PO DAILY [facility] Last Admin: 11/28/20 08:25 Dose: 75 mg Documented by: YANA Venlafaxine HCl (Venlafaxine Hcl Er 150 Mg Cap.Er.24h) 150 mg PO DAILY [facility] Last Admin: 11/28/20 08:25 Dose: 150 mg Documented by: YANA Vitamin D (Cholecalciferol (Vitamin D3) 25 Mcg Tablet) 50 mcg PO DAILY [facility] Last Admin: 11/28/20 08:24 Dose: 50 mcg Documented by: YANA Labs CBC & Chem 7: 11/25/20 08:25 11/25/20 08:25 Labs: Laboratory Results - last 24 hr 11/27/20 11/27/20 11/28/20 16:04 20:14 07:24 POC Glucose 144 H 219 H 169 H 11/28/20 11:30 POC Glucose 160 H Assessment and Plan (1) Gastritis: Status: Acute (2) Intractable nausea and vomiting: Status: Acute (3) Staphylococcus aureus bacteremia: Status: Acute (4) Orthostatic hypotension: Status: Acute Assessment and Plan: 50yo M with IDDM, HTN, HLD, and CAD who was recently hospitalized here 11/09- 11/17/20 for sepsis due to left olecranon bursitis complicated by MSSA bacteremia, presenting with epigastric pain and intractable nausea and vomiting, and hypertensive urgency Orthostatic blood pressure Patient last night felt lightheaded and dizzy and lowered himself to the floor, this morning orthostatic blood pressures are positive therefore will hold Norvasc and lisinopril and treat patient with normal saline follow blood pressure closely. Recently antihypertensive were uptitrated due to high blood pressure nausea/vomiting/abdominal pain. resolved Seen by GI, s/p endoscopy showing gastritis/duodenitis -transition to p.o. omeprazole, continue sucralfate -tolerating full diet MSSA bacteremia, olecranon bursitis from previous admission continue IV cefazolin to end 12/08, needs plan for IV abx for olecranon bu rsitis/MSSA bacteremia; Tox screen + for fentanyl on admission; will likely need d/c to SNF to finish course of abx; will discuss duration of abx with ID, patient adamantly denies use of illicit drugs mild transaminasemia [AST] trednding down hepatitis screen negative mild leukocytosis - ?reactive.? no sign of infection.? improving, follow CBC mild renal insufficiency Creatinine normalized CAD HLD - continue statin, ASA DM2, A1c 7.4 (11/18/20) Blood sugars stable, continue bolus insulin; hold MTF neuropathy - continue gabapentin mood disorder - continue bupropion, venlafaxine, aripiprazole, trazodone,and prazosin tobacco abuse - NRT VTE ppx - LMWH Quality Stroke Does the patient have a stroke diagnosis?: No VTE Prior VTE?: No VTE Risk Level:: Medical - moderate - high VTE Device Contraindication: N/A - Device Ordered VTE Drug Contraindication: N/A - Med Ordered
[2020-11-28 17:23] LABS: Glucose, Whole Blood 178 mg/dL (60-115)
[2020-11-28 20:20] LABS: Glucose, Whole Blood 195 mg/dL (60-115)
[2020-11-28] MEDS: Prazosin HCL 1 MG CAPSULE 2 MG PO (22:12)
[2020-11-28] MEDS: hydrOXYzine HCL 25 MG TABLET PO (22:13)
[2020-11-28] MEDS: traZODone HCL 100 MG TABLET PO (22:13)
[2020-11-28] MEDS: Atorvastatin Calcium 80 MG TABLET PO (22:13)
[2020-11-28] MEDS: Insulin Glargine,Hum.rec.anlog 100 UNIT/ML 10 ML VIAL 20 UNIT SUBCUT (22:13)
[2020-11-29] VITALS: BP 115/74; PULSE 76; RESP 16; TEMP 36.6; O2SAT 97
[2020-11-29] MEDS: ceFAZolin Sodium/Dextrose,Iso 2 GM/50 ML PIGGYBACK IV ×2 (00:48→08:01)
[2020-11-29 04:00] VITALS: BP 122/77; PULSE 79; RESP 16; TEMP 36.4; O2SAT 98
[2020-11-29] MEDS: Omeprazole 20 MG CAPSULE.DR PO (06:37)
[2020-11-29 07:29] LABS: Glucose, Whole Blood 171 mg/dL (60-115)
[2020-11-29 07:43] VITALS: BP 141/77; PULSE 86; RESP 18; TEMP 37.7; O2SAT 100
[2020-11-29] MEDS: Sucralfate 1 GM TABLET PO (08:01)
[2020-11-29] MEDS: Cholecalciferol (Vitamin D3) 25 MCG TABLET 50 MCG PO (08:01)
[2020-11-29] MEDS: ARIPiprazole 15 MG TABLET PO (08:01)
[2020-11-29] MEDS: lisinopriL 10 MG TABLET PO (08:01)
[2020-11-29] MEDS: Nicotine 21 MG PATCH.TD24 TRANSDERMA (08:01)
[2020-11-29] MEDS: Insulin Lispro 100 UNIT/ML 3 ML VIAL SUBCUT ×2 (08:02→11:57)
[2020-11-29] MEDS: Venlafaxine HCl ER 150 MG CAP.ER.24H PO (08:02)
[2020-11-29] MEDS: Venlafaxine HCl ER 75 MG CAP.ER.24H PO (08:02)
[2020-11-29] MEDS: Gabapentin 600 MG TABLET PO (08:02)
[2020-11-29] MEDS: Aspirin Enteric Coated 81 MG TABLET.DR PO (08:02)
[2020-11-29] MEDS: buPROPion HCl XL 300 MG TAB.ER.24H PO (08:02)
[2020-11-29] MEDS: amLODIPine Besylate 5 MG TABLET PO (08:02)
[2020-11-29] MEDS: 0.9 % Sodium Chloride Flush 3 ML SYRINGE IVFLUSH (08:03)
[2020-11-29 11:30] LABS: Glucose, Whole Blood 160 mg/dL (60-115)
[2020-11-29 11:43] VITALS: BP 129/81; PULSE 89; RESP 17; TEMP 36.1; O2SAT 100
--- NOTE | 2020-11-29 12:07 | MHC.CM.PN ---
Addendum entered by Marian Mcmillan RN 11/29/20 13:25: CM PROVIDED HOSPITALIST W/[facility]IAISON DYLAN AND HER NUMBER [phone] AND WAS ABLE TO CONTACT AND DISCUSS CASE W/HER. Addendum entered by Marian Mcmillan RN 11/29/20 13:22: CM RECEIVED MESSAGE FROM HOSPITALIST THAT PT COULD GO HOME W/IV ABX, HOWEVER ONCE CM SENT [facility] A MESSAGE REGARDING PT NOW GOING HOME LIAIASON REQUESTED CM TO CALL HER AND LIAISON PT IS TOO HIGH RISK D/T RECENT COCAINE USE OVER SUMMER AND UTOX BEING POSITIVE FOR OPIATES AND FENTANYL. HOS[ITALIST NOTIFIED AND WILL MEET W/PT VIA RN INTERNATIONAL AND PT WILL PROBABLY NEED TO D/C AMA. Original Note: CM MET W/PT VIA RN INTERNATIONAL AND PT CONT'S TO DENY USING OPIATES PRIOR TO ADMIT, PT REFUSING TO GO TO [facility] FOR IV ABX TX AND REPORTS HE WOULD RATHER LEAVE AMA. CM HAS NOTIFIED HOSPITALIST VIA [employer].
[2020-11-29 15:39] VITALS: BP 121/79; PULSE 89; RESP 17; TEMP 36; O2SAT 100
--- NOTE | 2020-11-29 15:40 | PC.NURSE ---
PICC LINE REMOVAL WAS DONE BY [place]AND ISSA RN NSG FIELD MAP TECHNICIAN DUE TO PT WAS LEAVING AMA.
--- NOTE | 2020-11-29 15:46 | PC.NURSE ---
PICC Line removed from right upper arm, measures 51 cm in length to hub. Noted to be intact
--- NOTE | 2020-11-29 15:55 | PM.DS ---
DS: Providers Provider Date of Service: 11/29/20 Date of admission: 11/23/20 15:54 Primary care physician: Cheri Baird Consults: 11/23/20 15:01 Consult to Gastroenterology Routine Consulting Provider: [facility] Reason for consultation: intractable N/V/epigastric pain DS: Diagnosis Discharge Diagnosis (1) Gastritis: Status: Acute (2) Intractable nausea and vomiting: Status: Acute (3) Staphylococcus aureus bacteremia: Status: Acute (4) Orthostatic hypotension: Status: Acute DS: Summary Hospital Course Hospital Course: From H&P on day of admission 50yo M with IDDM, HTN, HLD, and CAD who was recently hospitalized here 11/09-11/17/20 for sepsis due to left olecranon bursitis complicated by MSSA bacteremia.? PICC was placed and he was sent home on IV cefazolin 2g q8h.? He developed fairly acute onset epigastric pain, nausea, non-bloody non-bilious emesis 3d ago.? Pain is severe and constant.? He was seen in ED here 11/21/20; CT A/P did not show acute pathology.? He had mild leukocytosis.? Symptoms were attributed to gastritis and he was sent home on PPI, ondansetron, and sucralfate.? However, symptoms have worsened and he returned to the ED today.? He has no diarrhea.? He denies fever, cough, dyspnea, or chest pain.? He has history of 1-time cocaine abuse back in August but denies any cocaine use since then and denies use of marijuana.? Denies EtOH as well.? He has been unable to sleep due to the pain. In the ED, he was hypertensive, with mild leukocytosis.? Abdominla ultrasound was normal.? He was given IV fluids and IV ondansetron + metoclopramide + morphine + hydromorphone but still c/o severe abdominal pain. HTN. Initially noted to high blood pressure therefore Dose of lisinopril was increased to 10 mg daily and Norvasc was added to his regimen, but patient noted to have low blood pressure therefore Norvasc discontinued and patient placed back on lisinopril 5 mg daily recommend close outpatient blood pressure follow-up by PCP Epigastric abdominal pain/nausea vomiting. Patient was started on IV PPI and continued on home sucralfate. He was evaluated by GI who recommended endoscopy. Patient underwent endoscopy on 11/24/2020 which revealed evidence of gastritis/duodenitis. Pathology is pending at the time of discharge. He continued to have some nausea and vomiting and was treated with antiemetics. He underwent gastric emptying study which showed mild delay in gastric emptying with 27% retention of activity in the stomach after 4 hours. His abdominal pain slowly improved and his vomiting has resolved. This morning he is tolerating a full diet and is stable for discharge home. He will be discharged home with increased dose of omeprazole and p.r.n. Reglan with meals. He should call to schedule follow-up appointment with the receptionist airline lounge. In regard to recent MSSA bacteremia patient was on IV Kefzol but noted to have urine toxicology positive for opiates and fentanyl therefore infusion company declined services at home patient refused to go to rehab patient was inform about risk of leaving hospital AMA with concern for severe sepsis and but patient is adamant that he does not want to go to rehab for continued IV antibiotic therefore will discharge patient home on by mouth Keflex for 10 days and he has been informed that this is sub optimal treatment, therefore will remove PICC line and patient will be discharged home patient is adamant that he does not use illicit drugs. Time Spent with Patient Time attestation: Total time spent providing and/or coordinating discharge services: Discharge coordination time: Greater than 30 minutes Quality: Stroke Does the patient have a stroke diagnosis?: No Physical Exam Vital Signs: Vital Signs: Last Vital Signs Temp 96.8 F 11/29/20 15:39 Pulse 89 11/29/20 15:39 Resp 17 11/29/20 15:39 BP 121/79 11/29/20 15:39 Pulse Ox 100 11/29/20 15:39 Body Mass Index 28.4 General alert oriented x3, no acute distress.? Neck supple no JVD. CVS? regular rate rhythm, Respiratory lungs clear to auscultation, no respiratory distress, no wheeze, no rhonchi. Gastrointestinal abdomen soft, nontender, bowel sounds audible, no guarding , no rigidity. Extremities no edema. Neuro nonfocal ,speech clear. Skin no rash Psych appropriate affect DS: Data Data Completed and Pending Completed studies during hospitalization [Text1]: Pending at discharge 11/24/20 12:18 Surgical [PTH] Routine Procedures Introduction of Other Thrombolytic into Peripheral Vein, Percutaneous Approach (09/26/20) Labs on day of discharge: Laboratory Results - last 24 hr 11/28/20 11/28/20 11/29/20 17:19 19:47 07:14 POC Glucose 178 H 195 H 171 H 11/29/20 11:19 POC Glucose 160 H Discharge Plan Discharge Patient Disposition: Home, Self-Care Discharge Diagnosis: Gastritis/duodenitis nausea and vomiting MSSA bacteremia Referrals: Tiffany Lizarraga MD [Physician] - 1 Week Physician,Tad J [Physician] - 1 Week Discharge Medications: New metoclopramide HCl [Reglan] 5 mg tablet 5 mg PO TIDWM PRN (Reason: nausea and vomiting) 30 Days RF: 0 omeprazole 20 mg capsule,delayed release(DR/EC) 20 mg PO BID 30 Days Qty: 60 RF: 0 lisinopril 5 mg tablet 5 mg PO DAILY Qty: 30 RF: 0 cephalexin 500 mg capsule 500 mg PO Q8H Qty: 30 RF: 0 Continued insulin aspart U-100 [Novolog Flexpen U-100 Insulin] 100 unit/mL (3 mL) insulin pen 15 unit subcut TID Qty: 15 RF: 3 aspirin 81 mg tablet,delayed release (DR/EC) 81 mg PO DAILY Qty: 90 RF: 0 atorvastatin [Lipitor] 80 mg tablet 80 mg PO BEDTIME Qty: 30 RF: 0 gabapentin 600 mg tablet 1 tab PO TID RF: 0 nitroglycerin 0.3 mg tablet, sublingual 1 tab sublingual USEASDIRECTD RF: 0 metformin 500 mg tablet extended release 24 hr 2 tab PO BID RF: 0 hydroxyzine pamoate 25 mg capsule 1 cap PO BEDTIME RF: 0 venlafaxine 75 mg Capsule,Extended Release 24hr 75 mg PO DAILY RF: 0 prazosin 2 mg capsule 1 cap PO BEDTIME RF: 0 nicotine 21 mg/24 hr Patch 24 Hour 21 mg transdermal DAILY Qty: 28 RF: 0 insulin degludec 100 unit/mL (3 mL) insulin pen 40 unit subcut QPM 30 Days Qty: 30 RF: 1 sucralfate 1 gram tablet 1 g PO TID Qty: 90 RF: 0 bupropion HCl 300 mg tablet extended release 24 hr 300 mg PO DAILY RF: 0 aripiprazole 15 mg tablet 15 mg PO DAILY RF: 0 trazodone 100 mg tablet 100 mg PO BEDTIME RF: 0 venlafaxine 150 mg capsule,extended release 24hr 150 mg PO DAILY RF: 0 cholecalciferol (vitamin D3) 50 mcg (2,000 unit) capsule 50 mcg PO QAM RF: 0 Citrucel 500 mg tablet 500 mg PO TID Qty: 90 RF: 2 Trulicity 1.5 mg/0.5 mL pen injector 1.5 mg subcut QWEEK 28 Days Qty: 2 RF: 3 Changed omeprazole 20 mg capsule,delayed release(DR/EC) 20 mg PO BID Qty: 0 RF: 0 Discontinued cefazolin in dextrose (iso-os) 2 gram/50 mL Piggyback 50 ml IV Q8H 26 Days Qty: 78 RF: 0 lisinopril 5 mg tablet 5 mg PO DAILY Qty: 30 RF: 0 ondansetron 4 mg tablet,disintegrating 4 mg PO Q6-8H PRN (Reason: nausea and vomiting) Qty: 15 RF: 0 No Action (DME) pen needle, diabetic 32 gauge x 5/32 needle See Rx Instructions ea .ROUTE .MEDSUPPLY Qty: 50 RF: 0 (DME) lancets 33 gauge misc See Rx Instructions ea Not Applicable BID Qty: 100 RF: 0 (DME) FreeStyle Lite Strips Strip See Rx Instructions .ROUTE .MEDSUPPLY Qty: 150 RF: 11 (DME) lancets [TRUEplus Lancets] 33 gauge misc See Rx Instructions .ROUTE .MEDSUPPLY Qty: 200 RF: 11 Discharge Orders: Discharge Order (Routine); Ordered 11/29/20 Ordered By: Mike Bowers Diet: diabetic diet and low fat, low cholesterol Activity on Discharge: As tolerated Stand Alone Forms: Patient Portal Discharge page Care Plan Goals: Stay healthy and out of the hospital take orak keflex ending on 12/08/20 Patient refused to go to rehab to finish course of IV Kefzol therefore being discharged home on by mouth Keflex that is a sub optimal treatment patient has been aware of risk of recurrent infection/ sepsis and poor outcome Health Concerns: Epigastric abdominal pain Nausea, vomiting Gastritis/duodenitis Delayed gastric emptying Mssa bacteremia Plan of Treatment: Omeprazole dose has been increased to twice daily Please call to schedule follow-up appointment with your PCP for close blood pressure monitoring Can take Reglan prior to meals as needed for nausea and vomiting. stop taking zofran. call to schedule follow up appointment with GI clinic Assessment: Admitted for nausea and vomiting as well as uncontrolled blood pressure and found to have gastritis/duodenitis on EGD also with mild delay on gastric emptying study Discharge Date/Time: 11/29/20 15:54
== END 2020-11-29 15:54 | disposition home or self-care (01) | DRG 392 ==
LOC: HO.ED 15:10 → HO.EDOVER 11-24 07:20 → HO.S3 11-24 16:12
PROVIDERS: Internal Medicine Gastroenterology; Physician Assistant Medical; Admitting Provider Family Medicine; Emergency Provider Emergency Medicine; PCP Nurse Practitioner Family; Visit Provider Hospitalist
PROC: 0DJ08ZZ Inspection of Upper Intestinal Tract, Via Natural or Artificial Opening Endoscopic (ICD-10-PCS; CPT 43235; principal; 2020-11-24 11:50)
DX: K52.9 Noninfective gastroenteritis and colitis, unspecified (principal); R78.81 Bacteremia; I16.0 Hypertensive urgency; M70.22 Olecranon bursitis, left elbow; I25.10 Atherosclerotic heart disease of native coronary artery without angina pectoris; E78.00 Pure hypercholesterolemia, unspecified; F17.210 Nicotine dependence, cigarettes, uncomplicated; N28.9 Disorder of kidney and ureter, unspecified; Z71.6 Tobacco abuse counseling; F39 Unspecified mood [affective] disorder; E78.5 Hyperlipidemia, unspecified; E11.40 Type 2 diabetes mellitus with diabetic neuropathy, unspecified; R19.7 Diarrhea, unspecified; I95.1 Orthostatic hypotension; B95.61 Methicillin susceptible Staphylococcus aureus infection as the cause of diseases classified elsewhere; Z20.822 Contact with and (suspected) exposure to COVID-19; D72.829 Elevated white blood cell count, unspecified; Z79.4 Long term (current) use of insulin; Z79.82 Long term (current) use of aspirin; Z79.899 Other long term (current) drug therapy
CPT/HCPCS: 36415; 36573; 76705; 78264; 80048; 80076; 80307; 81001; 82947; 83690; 83735; 84484; 85025; 85027; 86704; 86706; 86803; 87340; 87635; 88305; 88342; 96361; 96374; 96375; 96376; 99219; 99285; A9541; J0690; J1650; J2270; J2405; J2550; J2765

== ENCOUNTER 2020-12-20 16:22 | Emergency (ER) | payer OTHER, SELFPAY ==
[2020-12-20 16:33] VITALS: BP 124/85; BP 135/95; PULSE 90; PULSE 95; RESP 18; TEMP 36.6; O2SAT 97; O2SAT 99; BMI 26.3
--- NOTE | 2020-12-20 16:49 | ECG_ITS ---
Test Reason : WEAKNESS Blood Pressure : / mmHG Vent. Rate : 091 BPM Atrial Rate : 091 BPM P-R Int : 166 ms QRS Dur : 088 ms QT Int : 350 ms P-R-T Axes : 031 -48 040 degrees QTc Int : 430 ms Normal sinus rhythm Left anterior fascicular block RSR' or QR pattern in V1 suggests right ventricular conduction delay Abnormal ECG No significant changes seen Referred By: Aruna Carvajal Electronically Signed By:SILVER HUNT MD
--- NOTE | 2020-12-20 16:52 | ED.GENADULT ---
HPI - General Adult General Chief complaint: Weakness Stated complaint: dizzy Time Seen by Provider: 12/20/20 16:40 Source: patient and EMS Mode of arrival: EMS Limitations: no limitations History of Present Illness HPI narrative: Patient comes to the emergency room complaining of a near syncopal episode. Patient states he was in his house, standing, he suddenly started feeling weak, lightheaded, patient was able to sit down. Patient denies any chest pain, no shortness of breath. At this time, patient states that he is asymptomatic. Patient denies being sick lately. Patient states that he has chronic diarrhea for approximately 3+ months. Patient denies using drugs. Related Data Home Medications Medication Instructions Recorded Confirmed aripiprazole 15 mg tablet 15 mg PO DAILY 07/20/20 11/23/20 bupropion HCl 300 mg 24 hr tablet, 300 mg PO DAILY 07/20/20 11/23/20 extended release lancets 33 gauge #100 ea 07/20/20 11/08/20 pen needle, diabetic 32 gauge x #50 ea 07/20/20 11/08/20 trazodone 100 mg tablet 100 mg PO BEDTIME 07/20/20 11/23/20 venlafaxine 150 mg 150 mg PO DAILY 07/20/20 11/23/20 capsule,extended release 24 hr cholecalciferol (vitamin D3) 50 50 mcg PO QAM 11/03/20 11/23/20 mcg (2,000 unit) capsule gabapentin 600 mg tablet 1 tab PO TID 11/09/20 11/23/20 hydroxyzine pamoate 25 mg capsule 1 cap PO BEDTIME 11/09/20 11/23/20 metformin 500 mg tablet,extended 2 tab PO BID 11/09/20 11/23/20 release 24 hr nitroglycerin 0.3 mg sublingual 1 tab SUBLINGUAL USEASDIRECTD 11/09/20 11/23/20 tablet prazosin 2 mg capsule 1 cap PO BEDTIME 11/09/20 11/23/20 venlafaxine 75 mg capsule,extended 75 mg PO DAILY 11/09/20 11/23/20 release 24 hr Previous Rx's Medication Instructions Recorded blood sugar diagnostic (FreeStyle #150 ea 07/20/20 Lite Strips) lancets 33 gauge (TRUEplus Lancets) #200 ea 06/02/21 insulin aspart U-100 100 unit/mL 15 unit SUBCUT TID #15 ml 08/10/20 (3 mL) subcutaneous pen (Novolog Flexpen U-100 Insulin aspart) dulaglutide 1.5 mg/0.5 mL 1.5 mg SUBCUT QWEEK 28 Days #2 ml 08/30/20 subcutaneous pen injector (Trulicity) aspirin 81 mg tablet,delayed 81 mg PO DAILY #90 tab 09/28/20 release atorvastatin 80 mg tablet (Lipitor) 80 mg PO BEDTIME #30 tab 09/28/20 methylcellulose (laxative) 500 mg 500 mg PO TID #90 tab 11/03/20 tablet (Citrucel) nicotine 21 mg/24 hr daily 21 mg TRANSDERMAL DAILY #28 ea 11/16/20 transdermal patch sucralfate 1 gram tablet 1 g PO TID #90 tab 11/22/20 metoclopramide HCl 5 mg tablet 5 mg PO TIDWM PRN 30 Days tab 11/26/20 (Reglan) omeprazole 20 mg capsule,delayed 20 mg PO BID #0 cap 11/26/20 release omeprazole 20 mg capsule,delayed 20 mg PO BID 30 Days #60 cap 11/26/20 release cephalexin 500 mg capsule 500 mg PO Q8H #30 cap 11/29/20 lisinopril 5 mg tablet 5 mg PO DAILY #30 tab 11/29/20 insulin degludec 100 unit/mL (3 40 unit SUBCUT QPM 30 Days #30 ml 12/19/20 mL) subcutaneous pen Allergies Allergy/AdvReac Type Severity Reaction Status Date / Time No Known Allergies Allergy Unverified 11/25/20 13:40 [No Known Allergies*] Review of Systems Review of Systems: Constitutional : No Weight loss, No Fever, No Chills, No Night Sweats, No Fatigue, No Malaise ENT/Mouth : No Hearing loss, No Ear Pain, No Nasal Congestion, No Sinus Pain, No Hoarseness, No sore throat, No Rhinorrhea, No Swallowing Difficulty Eyes: No Eye Pain, No Swelling, No Redness, No Foreign Body, No Discharge, No Vision Changes Cardiovascular : No Chest Pain, No SOB, No Dyspnea on Exertion, No Orthopnea, No Edema, No Palpitations Respiratory : No Cough, No Sputum, No Wheezing, No Smoke Exposure, No Dyspnea Gastrointestinal : No Nausea, No Vomiting, No Diarrhea, No Constipation, No abdominal Pain, No Hematochezia, No Melena Genitourinary : no irregular bleeding, No Dysuria, No Urinary Frequency, No Hematuria, No Urinary Incontinence, No Urgency, No Flank Pain, No Urinary Flow Changes, No Hesitancy Musculoskeletal : No joint pain, No Myalgias, No Joint Swelling Skin : No Skin Lesions, No rash Neuro : No Weakness, No Numbness, No Paresthesias, No Loss of Consciousness, complaining of lightheadedness which resolved, No Headache Psych : No Anxiety/Panic, No Depression, No SI/HI/AH/VH, No Social Issues, Heme/Lymph: No Bruising, No Bleeding,No Lymphadenopathy Endocrine : No Polyuria, No Polydipsia, No Temperature Intolerance [facility] Past Medical History Medical History Anxiety Arthritis Chronic diarrhea Depression Diabetes Essential hypertension High cholesterol High cholesterol History of myocardial infarction HTN (hypertension) Hyperlipidemia LDL goal <70 Normal echocardiogram Tobacco use disorder Type 2 diabetes mellitus with unspecified complications Surgical History H/O cardiac catheterization History of appendectomy Hx of foot surgery Family History Family History Mother Alzheimer disease HTN (hypertension) Father Old age Brother Diabetes mellitus Maternal Grandmother Diabetes mellitus Heart disease Social History Social History (System 11/25/20 @ 13:40 by Bernice Quintero) Household Members: Family and Friend(s) Household Members Other:: Roommate Housing: House Do you presently have visiting nurse or other home services: No Alcohol intake: current Alcohol intake frequency: does not drink Patient Tobacco Use Status: Former Tobacco user Tobacco use type: Cigarette Second Hand Smoke Exposure: No Substance Use Type: Crack/Cocaine and Other Advance Directives: No Advance Directives Information Provided: Yes service: No Current occupational status: unemployed and disabled Physical Exam Vital Signs: Vital Signs: Last Vital Signs Temp 98 F 12/20/20 16:33 Pulse 93 12/20/20 17:41 Resp 18 12/20/20 16:33 BP 108/75 12/20/20 17:41 Pulse Ox 97 12/20/20 16:33 Body Mass Index 26.3 Const: Other: Appearance: Alert. Oriented X3. No acute distress. Eyes: Pupils equal, round and reactive to light. ENT: Pharynx normal. Neck: Normal inspection. Neck supple. No lymph nodes noted. No crepitus CVS: Normal heart rate and rhythm. Pulses normal. Normal S1 and S2 Respiratory: No respiratory distress. Breath sounds normal. No Wheezing. No rales Abdomen: Soft and nontender. No rigidity. No distention. Skin: Skin warm and dry. Normal skin color. Normal skin turgor. Extremities: No lower extremity edema. No Lacerations. No Rash Neuro: Oriented X 3. Mild residual weakness in upper and lower extremity on the right side secondary to a stroke 3 months ago, No sensory deficit. Moving all extermities. No slurred speech. Course Course Course Narrative: Patient remains asymptomatic. Orthostatics negative. Patient states that he is very surprised that he tested positive for fentanyl, patient requested to be tested for drugs of abuse. Patient states that he only lives with his , does not suspect that anyone is sneaking drugs into his house. I discussed with the patient to discuss with his primary care physician getting a stress test done or a Holter monitor evaluation Medical Decision Making Lab Data Result diagrams: 12/20/20 16:56 12/20/20 16:56 Labs: Lab Results 12/20/20 12/20/20 12/20/20 Range/Units 16:56 16:56 16:56 WBC 11.1 H (4.8-10.8) X10*3/uL RBC 4.29 L (4.60-5.80) X10*6/uL Hgb 13.7 L (14.0-18.0) g/dl Hct 40.3 L (42.0-52.0) % MCV 93.9 (80.0-98.0) fL MCH 31.9 (27.0-33.0) pg MCHC 34.0 (31.0-36.0) g/dl RDW 12.9 (11.0-16.0) % Plt Count 151 L (160-400) X10*3/uL MPV 12.0 (9.4-12.4) fL Immature Gran % (Auto) 0.3 (0.0-0.4) % Neut % (Auto) 55.9 (45-73) % Lymph % (Auto) 34.8 (20-40) % [place] % (Auto) 6.7 (2-11) % Eos % (Auto) 1.4 (0-4) % Baso % (Auto) 0.9 (0-2) % Lymph # (Auto) 3.9 (1.2-4.9) X10*3/uL [place] # (Auto) 0.7 (0.1-1.2) X10*3/uL Eos # (Auto) 0.2 (0.0-0.4) X10*3/uL Baso # (Auto) 0.1 (0.0-0.2) X10*3/uL Abs Immat Gran (auto) 0.03 (0.00-0.03) X10*3/uL Absolute Neuts (auto) 6.21 (2.0-8.3) x10*3/uL Absolute Nucleated RBC 0.000 (0.0-0.012) X10*3/uL Nucleated RBC % (auto) 0.0 (0.0-0.2) /100WBC Smear Tech's Comments VERIFIED Sodium 138 (135-145) mmol/L Potassium 4.2 D (3.3-5.1) mmol/L Chloride 107 (96-108) mmol/L Carbon Dioxide 21 L (22-29) mmol/L Anion Gap 14 (12-20) BUN 19 H (9-16) mg/dL Creatinine 1.10 (0.5-1.4) mg/dL Estim Creat Clear Calc 94.4 Estimated GFR > 60 Random Glucose 189 H D (60-115) mg/dL Calcium 8.9 (8.4-10.2) mg/dL Total Bilirubin 0.7 (0.0-1.0) mg/dL Direct Bilirubin 0.2 (0.0-0.5) mg/dL AST 23 D (5-37) U/L ALT 30 (0-40) U/L Alkaline Phosphatase 131 H D (39-117) U/L Troponin I High Sens < 3.5 D (<3.5-35.0) ng/L Total Protein 7.4 (6.5-8.0) g/dL Albumin 4.1 (3.5-5.0) g/dL Urine Color Urine Appearance Urine pH (5.0-8.0) Ur Specific [place] (1.005-1.025) Urine Protein (NEG-TRACE) MG/DL Urine Glucose (UA) (NEG) MG/DL Urine Ketones (NEG) MG/DL Urine Blood (NEG) Urine Nitrite (NEG) Ur Leukocyte Esterase (NEG) Urine Opiates Screen (Not Detect) Urine Fentanyl Screen (Not Detect) Ur Barbiturates Screen (Not Detect) Ur Phencyclidine Scrn (Not Detect) Ur Amphetamines Screen (Not Detect) U Benzodiazepines Scrn (Not Detect) Urine Cocaine Screen (Not Detect) U Marijuana (THC) Screen (Not Detect) 12/20/20 12/20/20 Range/Units 17:37 17:37 WBC (4.8-10.8) X10*3/uL RBC (4.60-5.80) X10*6/uL Hgb (14.0-18.0) g/dl Hct (42.0-52.0) % MCV (80.0-98.0) fL MCH (27.0-33.0) pg MCHC (31.0-36.0) g/dl RDW (11.0-16.0) % Plt Count (160-400) X10*3/uL MPV (9.4-12.4) fL Immature Gran % (Auto) (0.0-0.4) % Neut % (Auto) (45-73) % Lymph % (Auto) (20-40) % [place] % (Auto) (2-11) % Eos % (Auto) (0-4) % Baso % (Auto) (0-2) % Lymph # (Auto) (1.2-4.9) X10*3/uL [place] # (Auto) (0.1-1.2) X10*3/uL Eos # (Auto) (0.0-0.4) X10*3/uL Baso # (Auto) (0.0-0.2) X10*3/uL Abs Immat Gran (auto) (0.00-0.03) X10*3/uL Absolute Neuts (auto) (2.0-8.3) x10*3/uL Absolute Nucleated RBC (0.0-0.012) X10*3/uL Nucleated RBC % (auto) (0.0-0.2) /100WBC Smear Tech's Comments Sodium (135-145) mmol/L Potassium (3.3-5.1) mmol/L Chloride (96-108) mmol/L Carbon Dioxide (22-29) mmol/L Anion Gap (12-20) BUN (9-16) mg/dL Creatinine (0.5-1.4) mg/dL Estim Creat Clear Calc Estimated GFR Random Glucose (60-115) mg/dL Calcium (8.4-10.2) mg/dL Total Bilirubin (0.0-1.0) mg/dL Direct Bilirubin (0.0-0.5) mg/dL AST (5-37) U/L ALT (0-40) U/L Alkaline Phosphatase (39-117) U/L Troponin I High Sens (<3.5-35.0) ng/L Total Protein (6.5-8.0) g/dL Albumin (3.5-5.0) g/dL Urine Color YELLOW Urine Appearance CLEAR Urine pH 6.5 (5.0-8.0) Ur Specific [place] 1.015 (1.005-1.025) Urine Protein NEG (NEG-TRACE) MG/DL Urine Glucose (UA) 250 H (NEG) MG/DL Urine Ketones NEG (NEG) MG/DL Urine Blood NEG (NEG) Urine Nitrite NEG (NEG) Ur Leukocyte Esterase NEG (NEG) Urine Opiates Screen Not Detected (Not Detect) Urine Fentanyl Screen POSITIVE H (Not Detect) Ur Barbiturates Screen Not Detected (Not Detect) Ur Phencyclidine Scrn Not Detected (Not Detect) Ur Amphetamines Screen Not Detected (Not Detect) U Benzodiazepines Scrn Not Detected (Not Detect) Urine Cocaine Screen Not Detected (Not Detect) U Marijuana (THC) Screen Not Detected (Not Detect) ECG Data Attestation: I personally reviewed and interpreted this ECG as follows: (Normal sinus rhythm, heart rate 91, no ST segment depression or elevation, no T-wave inversion, QTC 430) Discharge Plan Discharge Clinical Impression: Near syncope Patient Disposition: Home, Self-Care Instructions: Near Syncope (ED) Additional Instructions: Please follow-up with your primary care physician tomorrow. If you have any worsening or new symptoms, please return to the emergency room or call 911 Prescriptions: No Action insulin aspart U-100 [Novolog Flexpen U-100 Insulin] 100 unit/mL (3 mL) insulin pen 15 unit subcut TID Qty: 15 RF: 3 insulin degludec 100 unit/mL (3 mL) insulin pen 40 unit subcut QPM 30 Days Qty: 30 RF: 1 aspirin 81 mg tablet,delayed release (DR/EC) 81 mg PO DAILY Qty: 90 RF: 0 atorvastatin [Lipitor] 80 mg tablet 80 mg PO BEDTIME Qty: 30 RF: 0 gabapentin 600 mg tablet 1 tab PO TID RF: 0 nitroglycerin 0.3 mg tablet, sublingual 1 tab sublingual USEASDIRECTD RF: 0 metformin 500 mg tablet extended release 24 hr 2 tab PO BID RF: 0 hydroxyzine pamoate 25 mg capsule 1 cap PO BEDTIME RF: 0 venlafaxine 75 mg Capsule,Extended Release 24hr 75 mg PO DAILY RF: 0 prazosin 2 mg capsule 1 cap PO BEDTIME RF: 0 nicotine 21 mg/24 hr Patch 24 Hour 21 mg transdermal DAILY Qty: 28 RF: 0 omeprazole 20 mg capsule,delayed release(DR/EC) 20 mg PO BID Qty: 0 RF: 0 metoclopramide HCl [Reglan] 5 mg tablet 5 mg PO TIDWM PRN (Reason: nausea and vomiting) 30 Days RF: 0 omeprazole 20 mg capsule,delayed release(DR/EC) 20 mg PO BID 30 Days Qty: 60 RF: 0 lisinopril 5 mg tablet 5 mg PO DAILY Qty: 30 RF: 0 cephalexin 500 mg capsule 500 mg PO Q8H Qty: 30 RF: 0 sucralfate 1 gram tablet 1 g PO TID Qty: 90 RF: 0 bupropion HCl 300 mg tablet extended release 24 hr 300 mg PO DAILY RF: 0 aripiprazole 15 mg tablet 15 mg PO DAILY RF: 0 trazodone 100 mg tablet 100 mg PO BEDTIME RF: 0 venlafaxine 150 mg capsule,extended release 24hr 150 mg PO DAILY RF: 0 (DME) pen needle, diabetic 32 gauge x /32 needle See Rx Instructions ea .ROUTE .MEDSUPPLY Qty: 50 RF: 0 (DME) lancets 33 gauge misc See Rx Instructions ea Not Applicable BID Qty: 100 RF: 0 (DME) FreeStyle Lite Strips Strip See Rx Instructions .ROUTE .MEDSUPPLY Qty: 150 RF: 11 (DME) lancets [TRUEplus Lancets] 33 gauge misc See Rx Instructions .ROUTE .MEDSUPPLY Qty: 200 RF: 11 cholecalciferol (vitamin D3) 50 mcg (2,000 unit) capsule 50 mcg PO QAM RF: 0 Citrucel 500 mg tablet 500 mg PO TID Qty: 90 RF: 2 Trulicity 1.5 mg/0.5 mL pen injector 1.5 mg subcut QWEEK 28 Days Qty: 2 RF: 3
[2020-12-20 17:01] LABS: PLT CLUMP 1; SCAN SMEAR FLAG 1; WBC ABN SCTR 1
[2020-12-20 17:11] LABS: Basophils Absolute Auto 0.1 X10*3/uL (0.0-0.2); Basophils Percent Auto 0.9 % (0-2); Red Cell Distribution Width 12.9 % (11.0-16.0)
[2020-12-20 17:12] LABS: Eosinophils Absolute Auto 0.2 X10*3/uL (0.0-0.4); Eosinophils Percent Auto 1.4 % (0-4); Hematocrit 40.3 % (42.0-52.0); Hemoglobin 13.7 g/dl (14.0-18.0); Imm Gran Abs Auto 0.03 X10*3/uL (0.00-0.03); Imm Gran Pct Auto 0.3 % (0.0-0.4); Lymphocytes Absolute Auto 3.9 X10*3/uL (1.2-4.9); Lymphocytes Percent Auto 34.8 % (20-40); Mean Corpuscular Hemoglobin 31.9 pg (27.0-33.0); Mean Corpuscular Volume 93.9 fL (80.0-98.0); Monocytes Absolute Auto 0.7 X10*3/uL (0.1-1.2); Monocytes Percent Auto 6.7 % (2-11); Neutrophils Absolute Auto 6.21 x10*3/uL (2.0-8.3); Neutrophils Percent Auto 55.9 % (45-73); Platelet Count 151 X10*3/uL (160-400); Red Blood Count 4.29 X10*6/uL (4.60-5.80)
[2020-12-20 17:17] LABS: Alanine Aminotransferase 30 U/L (0-40); Albumin Level 4.1 g/dL (3.5-5.0); Alkaline Phosphatase 131 U/L (39-117); Anion Gap 14 (12-20); Aspartate Amino Transferase 23 U/L (5-37); Bilirubin Direct 0.2 mg/dL (0.0-0.5); Bilirubin Total 0.7 mg/dL (0.0-1.0); Blood Urea Nitrogen 19 mg/dL (9-16); Calcium 8.9 mg/dL (8.4-10.2); Carbon Dioxide 21 mmol/L (22-29); Chloride 107 mmol/L (96-108); Creatinine Clr Calc Pharmacy 94.4; Estimated Glomerular Filt Rate > 60; Glucose Random 189 mg/dL (60-115); Potassium 4.2 mmol/L (3.3-5.1); Sodium 138 mmol/L (135-145); Total Protein 7.4 g/dL (6.5-8.0)
[2020-12-20 17:21] LABS: WBC ABN SCTR FOR CBC 1; White Blood Count 11.1 X10*3/uL (4.8-10.8)
[2020-12-20 17:22] LABS: MANUAL DIFF FLAG SCAN
[2020-12-20 17:23] LABS: SLIDE REVIEW VERIFIED; Troponin-I High Sensitivity < 3.5 ng/L (<3.5-35.0)
[2020-12-20 17:39] VITALS: BP 118/82; BP 130/89; PULSE 90; PULSE 98
[2020-12-20 17:41] VITALS: BP 108/75; PULSE 93
[2020-12-20 17:48] LABS: Appearance Urine CLEAR; Color Urine YELLOW; Glucose Urine UA 250 MG/DL (NEG); Leukocyte Esterase Urine NEG (NEG); Nitrite Urine NEG (NEG); PH 6.5 (5.0-8.0); Specific Gravity - Urine 1.015 (1.005-1.025); Urine Blood NEG (NEG); Urine Ketones NEG (NEG); Urine Protein NEG (NEG-TRACE)
[2020-12-20 18:03] LABS: Amphetamine Screen Urine Not Detected (Not Detect); Barbiturates, Urine Not Detected (Not Detect); Benzodiazepines Screen Urine Not Detected (Not Detect); Cannabinoid Screen Urine Not Detected (Not Detect); Cocaine Screen Urine Not Detected (Not Detect); Fentanyl, urine POSITIVE (Not Detect); Opiate Screen Urine Not Detected (Not Detect); Phencyclidine Screen Urine Not Detected (Not Detect)
== END 2020-12-20 18:59 | disposition home or self-care (01) ==
PROVIDERS: Emergency Provider Emergency Medicine
DX: R55 Syncope and collapse (principal); R42 Dizziness and giddiness; F14.90 Cocaine use, unspecified, uncomplicated; Z87.891 Personal history of nicotine dependence; Z79.899 Other long term (current) drug therapy
CPT/HCPCS: 36415; 80048; 80076; 80307; 81003; 84484; 85025; 93005; 99283

== ENCOUNTER 2021-01-10 08:36 | Outpatient (REF) | payer OTHER, SELFPAY ==
--- NOTE | ~2021-01-10 | US_ITS ---
EXAMINATION: US ABDOMEN COMPLETE CLINICAL INFORMATION: Abnormal levels of serum enzymes. COMPARISON: Limited abdominal ultrasound 11/23/2020. CT abdomen and pelvis 11/21/2020. TECHNIQUE: Real-time imaging of the abdominal viscera. FINDINGS: PANCREAS: The head and the body of the pancreas is homogeneous in texture. The tail is obscured by overlying gas. ABDOMINAL AORTA: There is mild atherosclerosis of the abdominal aorta without aneurysmal dilatation. INFERIOR VENA CAVA: Visualized portions are normal. LIVER: The liver is limited in visualization but appears normal size. The liver contour is normal. Parenchymal echogenicity is normal. No focal hepatic lesion. There is no intrahepatic biliary duct dilatation seen. GALLBLADDER: The gallbladder wall thickness is 0.2 cm. The gallbladder is physiologically distended without evidence of stones, sludge, polyps, wall thickening or pericholecystic fluid. COMMON BILE DUCT: Normal in caliber measuring 0.5 cm in diameter. RIGHT KIDNEY: Normal. No hydronephrosis. No renal calculi or focal parenchymal lesions. The kidney measures 11.8 cm in maximum dimension. LEFT KIDNEY: No hydronephrosis or focal parenchymal lesions. The kidney measures 12.0 cm in maximum dimension. There is an echogenic stone lower pole measuring 0.5 x 0.3 cm. SPLEEN: Normal. The spleen measures 10.0 cm in maximum dimension. FREE FLUID: None. US/US abdomen complete IMPRESSION: Mild atherosclerosis of the abdominal aorta. Echogenic lower pole stone measuring 0.5 x 0.3 cm. The rest of the abdominal ultrasound is unremarkable.
== END 2021-01-10 08:37 | disposition home or self-care (01) ==
LOC: HO.US 08:36
PROVIDERS: PCP Nurse Practitioner Family; Visit Provider Nurse Practitioner Family
DX: R74.8 Abnormal levels of other serum enzymes (principal)
CPT/HCPCS: 76700

== ENCOUNTER → 2021-02-06 14:19 | Outpatient (REF) | payer OTHER, SELFPAY ==
--- NOTE | 2021-02-06 14:22 | HM_ITS ---
Total monitoring time 13 days and 17 hours. Underlying rhythm is sinus. Minimum heart rate 66/Min. Maximum 123/Min. Average 90/Min. No atrial fibrillation or flutter or AV blocks or pauses. Rare supraventricular ectopy with minimal burden. Rare ventricular ectopy with minimal burden. No patient events. MTDD
== END ==
LOC: HO.CARD 14:19
PROVIDERS: Visit Provider Internal Medicine
DX: I48.0 Paroxysmal atrial fibrillation (principal); Z86.73 Personal history of transient ischemic attack (TIA), and cerebral infarction without residual deficits
CPT/HCPCS: 93246

== ENCOUNTER → 2021-02-27 14:00 | Outpatient (BNVA) | payer OTHER, SELFPAY | PROVIDERS: PCP Nurse Practitioner Family; Visit Provider Internal Medicine | DX: R79.89 Other specified abnormal findings of blood chemistry (principal); E04.9 Nontoxic goiter, unspecified | CPT/HCPCS: 99212 ==

== ENCOUNTER → 2021-02-28 14:07 | Outpatient (BNVA) | payer OTHER, SELFPAY | PROVIDERS: PCP Nurse Practitioner Family; Referring Provider Nurse Practitioner Family; Visit Provider Internal Medicine | DX: I63.9 Cerebral infarction, unspecified (principal); I10 Essential (primary) hypertension; E11.9 Type 2 diabetes mellitus without complications; F14.10 Cocaine abuse, uncomplicated; Z79.82 Long term (current) use of aspirin; Z79.899 Other long term (current) drug therapy | CPT/HCPCS: 99212 ==

== ENCOUNTER → 2021-03-13 15:30 | Outpatient (REF) | payer OTHER, SELFPAY | LOC: HO.SL 15:30 | PROVIDERS: Visit Provider Nurse Practitioner Family | DX: G47.30 Sleep apnea, unspecified (principal) | CPT/HCPCS: 95806 ==

== ENCOUNTER 2021-03-14 15:34 | Emergency (ER) | payer OTHER, SELFPAY ==
--- NOTE | 2021-03-14 | ECG_ITS ---
Test Reason : dizziness Blood Pressure : / mmHG Vent. Rate : 095 BPM Atrial Rate : 095 BPM P-R Int : 174 ms QRS Dur : 094 ms QT Int : 350 ms P-R-T Axes : 037 -31 052 degrees QTc Int : 439 ms Normal sinus rhythm Left axis deviation Septal infarct (cited on or before 14-MAR-2021) Abnormal ECG When compared with ECG of 20-DEC-2020 17:19, No significant change was found Referred By: Generic ED Physician Electronically Signed By:JOHN MARTIN MD
--- NOTE | ~2021-03-14 | XR_ITS ---
EXAMINATION: PORTABLE CHEST 1 VIEW CLINICAL INFORMATION: cp . COMPARISON: 10/01/2020. TECHNIQUE: Portable frontal view of the chest was obtained. FINDINGS: The lungs are well expanded. No focal infiltrate, effusion, edema, or pneumothorax. Cardiac and mediastinal silhouettes are within normal limits for technique. No acute bony abnormality seen. XR/XR chest 1V IMPRESSION: No evidence of acute disease.
[2021-03-14 15:40] VITALS: BP 101/62; BP 88/58; PULSE 96; RESP 20; TEMP 36.8; O2SAT 96; O2SAT 97; BMI 28.7
[2021-03-14 15:48] VITALS: BP 96/56
--- NOTE | 2021-03-14 16:06 | ED.CHESTPAIN ---
HPI - Chest Pain General Chief Complaint: Chest Pain Stated Complaint: hypotension Time Seen by Provider: 03/14/21 18:15 Source: patient and EMS Mode of arrival: EMS Limitations: language barrier History of Present Illness HPI narrative: 50-year-old male presents via EMS with presentation of dizziness, chest pain and shortness of breath that started after walking up 4 flights of stairs. Patient states left side of the chest wall. Increases with movement MD complaint: chest pain Pertinent past history: prior [place] Onset (ago): hour(s) (Within the hour of arrival) Timing of current episode: episodic Prior episodes: Yes Onset: during exertion Pain location: left chest Pain radiation: left arm Severity: moderate Pain scale (0-10): 6 Quality: aching and heaviness Relieving factors: nothing Exacerbating factors: exertion, inspiration, palpation and movement Associated symptoms: dyspnea Treatment prior to arrival: none Risk Factors Coronary artery disease risk factors: diabetes, hyperlipidemia, hypertension, family history of CAD before age 50 and cocaine use Thoracic aortic dissection risk factors: none Related Data Home Medications Medication Instructions Recorded Confirmed aripiprazole 15 mg tablet 15 mg PO DAILY 07/20/20 02/28/21 bupropion HCl 300 mg 24 hr tablet, 300 mg PO DAILY 07/20/20 02/28/21 extended release lancets 33 gauge #100 ea 07/20/20 02/28/21 pen needle, diabetic 32 gauge x #50 ea 07/20/20 02/28/21 trazodone 100 mg tablet 100 mg PO BEDTIME 07/20/20 02/28/21 cholecalciferol (vitamin D3) 50 50 mcg PO QAM 11/03/20 02/28/21 mcg (2,000 unit) capsule gabapentin 600 mg tablet 1 tab PO TID 11/09/20 02/28/21 hydroxyzine pamoate 25 mg capsule 1 cap PO BEDTIME 11/09/20 02/28/21 metformin 500 mg tablet,extended 2 tab PO BID 11/09/20 02/28/21 release 24 hr nitroglycerin 0.3 mg sublingual 1 tab SUBLINGUAL USEASDIRECTD 11/09/20 02/28/21 tablet prazosin 2 mg capsule 1 cap PO BEDTIME 11/09/20 02/28/21 venlafaxine 75 mg capsule,extended 75 mg PO DAILY 11/09/20 02/28/21 release 24 hr ezetimibe 10 mg tablet 10 mg PO DAILY 02/28/21 02/28/21 Previous Rx's Medication Instructions Recorded blood sugar diagnostic (FreeStyle #150 ea 07/20/20 Lite Strips) lancets 33 gauge (TRUEplus Lancets) #200 ea 07/20/20 aspirin 81 mg tablet,delayed 81 mg PO DAILY #90 tab 09/28/20 release atorvastatin 80 mg tablet (Lipitor) 80 mg PO BEDTIME #30 tab 09/28/20 methylcellulose (laxative) 500 mg 500 mg PO TID #90 tab 11/03/20 tablet (Citrucel) nicotine 21 mg/24 hr daily 21 mg TRANSDERMAL DAILY #28 ea 11/16/20 transdermal patch sucralfate 1 gram tablet 1 g PO TID #90 tab 11/22/20 metoclopramide HCl 5 mg tablet 5 mg PO TIDWM PRN 30 Days tab 11/26/20 (Reglan) omeprazole 20 mg capsule,delayed 20 mg PO BID #0 cap 11/26/20 release lisinopril 5 mg tablet 5 mg PO DAILY #30 tab 11/29/20 insulin degludec 100 unit/mL (3 40 unit (0.4 mL) SUBCUT QPM 30 12/19/20 mL) subcutaneous pen Days #30 ml dulaglutide 1.5 mg/0.5 mL 1.5 mg (0.5 mL) SUBCUT QWEEK 28 01/03/21 subcutaneous pen injector Days #2 ml (Trulicity) insulin aspart U-100 100 unit/mL 15 unit (0.15 mL) SUBCUT TID #15 ml 01/03/21 (3 mL) subcutaneous pen (Novolog Flexpen U-100 Insulin aspart) Allergies Allergy/AdvReac Type Severity Reaction Status Date / Time No Known Allergies Allergy Verified 02/28/21 14:37 [No Known Allergies*] Review of Systems Review of Systems: Constitutional: No Weight loss, No Fever, No Chills, No Night Sweats, No Fatigue, No Malaise ENT/Mouth: No Hearing loss, No Ear Pain, No Nasal Congestion, No Sinus Pain, No Hoarseness, No sore throat, No Rhinorrhea, No Swallowing Difficulty Eyes: No Eye Pain, No Swelling, No Redness, No Foreign Body, No Discharge, No Vision Changes Cardiovascular: Positive Chest Pain, no SOB, positive Dyspnea on Exertion, No Orthopnea, No Edema, No Palpitations Respiratory: No Cough, No Sputum, No Wheezing, No Smoke Exposure, No Dyspnea Gastrointestinal: Positive Nausea, No Vomiting, No Diarrhea, No abdominal Pain, No Hematochezia, No Melena Genitourinary: No irregular bleeding, No Dysuria, No Urinary Frequency, No Hematuria, No Urinary Incontinence, No Urgency, No Flank Pain, No Urinary Flow Changes, No Hesitancy Musculoskeletal: No joint pain, No Myalgias, No Joint Swelling Skin: No Skin Lesions, No rash Neuro: No Weakness, No Numbness, No Paresthesias, No Loss of Consciousness, No Dizziness, No Headache Psych: No Anxiety/Panic, No Depression, No SI/HI/AH/VH Heme/Lymph: No Bruising, No Bleeding,No Lymphadenopathy Endocrine: No Polyuria, No Polydipsia, No Temperature Intolerance Yes all other systems are reviewed and are negative [facility] Past Medical History Attestation statement: The following information was validated with the patient. Source: old records reviewed Medical History Anxiety Arthritis Chronic diarrhea Depression Diabetes Essential hypertension Goiter High cholesterol High cholesterol High serum luteinizing hormone (LH) History of myocardial infarction HTN (hypertension) Hyperlipidemia LDL goal <70 Normal echocardiogram Tobacco use disorder Type 2 diabetes mellitus with unspecified complications Surgical History H/O cardiac catheterization History of appendectomy Hx of foot surgery Family History Family History Mother Alzheimer disease HTN (hypertension) Father Old age Brother Diabetes mellitus Maternal Grandmother Diabetes mellitus Heart disease Social History Social History Household Members: Family and Friend(s) Household Members Other:: Roommate Housing: House Do you presently have visiting nurse or other home services: No Alcohol intake: former Year quit: 2019 Patient Tobacco Use Status: Former Tobacco user Quit Date: 12/2019 Tobacco use type: Cigarette Years Smoked: 35 +/- Second Hand Smoke Exposure: No Use of substances other than those prescribed or required for medical reasons: No Substance Use Type: Crack/Cocaine and Other Advance Directives: Yes Advance Directives on File: Yes Advance Directives Date on File: 11/30/20 service: No Current occupational status: unemployed and disabled Physical Exam Vital Signs: Vital Signs: Last Vital Signs Temp 98.1 F 03/14/21 18:20 Pulse 88 03/14/21 18:20 Resp 17 03/14/21 18:20 BP 112/74 03/14/21 18:20 Pulse Ox 100 03/14/21 18:20 BMI result Body Mass Index 28.7 Appearance: Alert. Oriented X3. No acute distress. Head: Normal external exam. Normocephalic. Atraumatic. No Baez signs noted. No raccoon eyes noted Eyes: PERRLA. EOMI. Conjunctiva and sclera normal. Eyelids normal. ENT: TM's Normal. Pharynx normal. Uvula midline. Moist mucous membranes. No trismus noted. No drooling noted. No muffled voice noted. Neck: Normal inspection. Neck supple. No adenopathy. No meningeal signs. No neck mass noted. CVS: Normal heart rate and rhythm. Heart sound normal. No murmurs noted. Pulses equal to all extremities. Respiratory: No respiratory distress. Painless inspiration. Breath sounds normal. No wheezes/rales/rhonchi noted. Chest nontender. No accessory muscle usage noted or decreased air movement noted. Abdomen: Soft and nontender. Bowel sounds normal in all 4 quadrants. No distention noted. No organomegaly noted. No visible injury noted. Back: No CVA tenderness. Full range of motion noted. Skin: Skin warm and dry. Normal skin color. Normal skin turgor. No rashes/lesions/lacerations noted. Extremities: No lower extremity edema. Extremities exhibit normal range of motion. Extremities nontender. Neuro: cranial nerves 2-12 intact, no focal neural deficits, strength 5/5 to all extremities, No motor deficit. No sensory deficit. NIH Stroke Scale Time: 16:10 Level of Consciousness: Alert Level of Consciousness Questions: Answers both questions correctly Level of Consciousness Commands: Performs both tasks correctly Best Gaze: Normal Visual: No visual loss Facial Palsy: Normal Motor Arm (Right): No drift Motor Arm (Left): No drift Motor Leg (Right): No drift Motor Leg (Left): No drift Limb Ataxia: Absent Sensory: Normal Best Language: No aphasia Dysarthia: Normal Extinction and Inattention: No abnormality Score: 0 Course Course Course Narrative: 50-year-old male presents with dizziness, chest pain, and shortness of breath that started after he walked up 4 flights of stairs. Presented via EMS. Does have a history of [place] and CVA. Order for labs and further imaging 4:45 p.m. patient positive for orthostatic hypotension. Will order 2 L fluid at this time. 5:00 p.m. white count 12.5 however patient does have a significant history of leukocytosis, H&H 13.9/41.1 which is consistent with his prior values dating back to 2019. Chemistries indicate BUN of 24 which is consistent with prior values, with creatinine of 1.43. Mild TJ currently receiving 2 L of fluid resuscitation. 5:48 p.m. patient states he does not want to stay any longer as reported by the RN. EVENING ANCHOR went in to discuss plan of care, patient states that he is hungry and feels better. Patient agreed to stay for further study. 6:28 p.m. multiple discussions with this EVENING ANCHOR, RN regarding patient requesting to leave against medical advice. Patient states that he feels better, does not want to pursue further testing. Does understand that he does risk of leaving against medical advice including , hypoxic brain injury, [place] and other serious complications. Patient is alert oriented x4, of sound mind. credit verifier utilized for all correspondence. Google translate utilized for discharge instructions. MDM - Chest Pain Differential Diagnosis Differential diagnosis: Likely fracture of rib, pneumothorax, unstable angina pectoris, atypical chest pain, st elevation myocardial infarction, costochondritis and chest pain Differential diagnosis: CVA Medical Records Data Attestation: I reviewed the patient's medical records. Lab Data Attestation: I reviewed the patient's lab results. Result diagrams: 03/14/21 16:25 03/14/21 16:26 Labs: Lab Results 03/14/21 03/14/21 03/14/21 Range/Units 16:25 16:26 16:26 WBC 12.5 H (4.8-10.8) X10*3/uL RBC 4.33 L (4.60-5.80) X10*6/uL Hgb 13.9 L (14.0-18.0) g/dl Hct 41.1 L (42.0-52.0) % MCV 94.9 (80.0-98.0) fL MCH 32.1 (27.0-33.0) pg MCHC 33.8 (31.0-36.0) g/dl RDW 13.2 (11.0-16.0) % Plt Count 187 (160-400) X10*3/uL MPV 10.5 (9.4-12.4) fL Immature Gran % (Auto) 0.3 (0.0-0.4) % Neut % (Auto) 64.6 (45-73) % Lymph % (Auto) 25.1 (20-40) % [place] % (Auto) 7.9 (2-11) % Eos % (Auto) 1.2 (0-4) % Baso % (Auto) 0.9 (0-2) % Lymph # (Auto) 3.1 (1.2-4.9) X10*3/uL [place] # (Auto) 1.0 (0.1-1.2) X10*3/uL Eos # (Auto) 0.2 (0.0-0.4) X10*3/uL Baso # (Auto) 0.1 (0.0-0.2) X10*3/uL Abs Immat Gran (auto) 0.04 H (0.00-0.03) X10*3/uL Absolute Neuts (auto) 8.1 (2.0-8.3) x10*3/uL Absolute Nucleated RBC 0.000 (0.0-0.012) X10*3/uL Nucleated RBC % (auto) 0.0 (0.0-0.2) /100WBC PT 11.7 (9.9-13.0) SEC INR 1.0 (0.9-1.1) APTT 33.7 (24.1-38.0) SEC Sodium 142 (135-145) mmol/L Potassium 4.2 (3.3-5.1) mmol/L Chloride 112 H (96-108) mmol/L Carbon Dioxide 22 (22-29) mmol/L Anion Gap 12 (12-20) BUN 24 H (9-16) mg/dL Creatinine 1.43 H (0.5-1.4) mg/dL Estim Creat Clear Calc 70.7 Estimated GFR 53 POC Glucose (60-115) mg/dL Random Glucose 107 D (60-115) mg/dL Calcium 8.9 (8.4-10.2) mg/dL Magnesium 1.8 (1.6-2.6) mg/dL Total Bilirubin 0.7 (0.0-1.0) mg/dL Direct Bilirubin 0.3 (0.0-0.5) mg/dL AST 19 (5-37) U/L ALT 26 (0-40) U/L Alkaline Phosphatase 101 D (39-117) U/L Troponin I High Sens (<3.5-35.0) ng/L Total Protein 7.0 (6.5-8.0) g/dL Albumin 3.9 (3.5-5.0) g/dL Lipase 50 (8-78) U/L Urine Color Urine Appearance Urine pH (5.0-8.0) Ur Specific [place] (1.005-1.025) Urine Protein (NEG-TRACE) MG/DL Urine Glucose (UA) (NEG) MG/DL Urine Ketones (NEG) MG/DL Urine Blood (NEG) Urine Nitrite (NEG) Ur Leukocyte Esterase (NEG) Urine RBC (0) /HPF Urine WBC (0-4) /HPF Ur Squamous Epith Cells /LPF Calcium Oxalate Crystal /LPF Urine Bacteria /LPF Hyaline Casts /LPF Urine Mucus /LPF Urine Opiates Screen (Not Detect) Urine Fentanyl Screen (Not Detect) Ur Barbiturates Screen (Not Detect) Ur Phencyclidine Scrn (Not Detect) Ur Amphetamines Screen (Not Detect) U Benzodiazepines Scrn (Not Detect) Urine Cocaine Screen (Not Detect) U Marijuana (THC) Screen (Not Detect) 03/14/21 03/14/21 03/14/21 Range/Units 16:26 16:26 17:09 WBC (4.8-10.8) X10*3/uL RBC (4.60-5.80) X10*6/uL Hgb (14.0-18.0) g/dl Hct (42.0-52.0) % MCV (80.0-98.0) fL MCH (27.0-33.0) pg MCHC (31.0-36.0) g/dl RDW (11.0-16.0) % Plt Count (160-400) X10*3/uL MPV (9.4-12.4) fL Immature Gran % (Auto) (0.0-0.4) % Neut % (Auto) (45-73) % Lymph % (Auto) (20-40) % [place] % (Auto) (2-11) % Eos % (Auto) (0-4) % Baso % (Auto) (0-2) % Lymph # (Auto) (1.2-4.9) X10*3/uL [place] # (Auto) (0.1-1.2) X10*3/uL Eos # (Auto) (0.0-0.4) X10*3/uL Baso # (Auto) (0.0-0.2) X10*3/uL Abs Immat Gran (auto) (0.00-0.03) X10*3/uL Absolute Neuts (auto) (2.0-8.3) x10*3/uL Absolute Nucleated RBC (0.0-0.012) X10*3/uL Nucleated RBC % (auto) (0.0-0.2) /100WBC PT (9.9-13.0) SEC INR (0.9-1.1) APTT (24.1-38.0) SEC Sodium (135-145) mmol/L Potassium (3.3-5.1) mmol/L Chloride (96-108) mmol/L Carbon Dioxide (22-29) mmol/L Anion Gap (12-20) BUN (9-16) mg/dL Creatinine (0.5-1.4) mg/dL Estim Creat Clear Calc Estimated GFR POC Glucose 105 (60-115) mg/dL Random Glucose (60-115) mg/dL Calcium (8.4-10.2) mg/dL Magnesium (1.6-2.6) mg/dL Total Bilirubin (0.0-1.0) mg/dL Direct Bilirubin (0.0-0.5) mg/dL AST (5-37) U/L ALT (0-40) U/L Alkaline Phosphatase (39-117) U/L Troponin I High Sens < 3.5 (<3.5-35.0) ng/L Total Protein (6.5-8.0) g/dL Albumin (3.5-5.0) g/dL Lipase (8-78) U/L Urine Color YELLOW Urine Appearance CLEAR Urine pH 5.5 (5.0-8.0) Ur Specific [place] >= 1.030 H (1.005-1.025) Urine Protein 1+ H (NEG-TRACE) MG/DL Urine Glucose (UA) NEG (NEG) MG/DL Urine Ketones 5 (NEG) MG/DL Urine Blood NEG (NEG) Urine Nitrite NEG (NEG) Ur Leukocyte Esterase NEG (NEG) Urine RBC 0-2 (0) /HPF Urine WBC 0-2 (0-4) /HPF Ur Squamous Epith Cells TRACE /LPF Calcium Oxalate Crystal TRACE /LPF Urine Bacteria NONE /LPF Hyaline Casts 0-2 /LPF Urine Mucus TRACE /LPF Urine Opiates Screen (Not Detect) Urine Fentanyl Screen (Not Detect) Ur Barbiturates Screen (Not Detect) Ur Phencyclidine Scrn (Not Detect) Ur Amphetamines Screen (Not Detect) U Benzodiazepines Scrn (Not Detect) Urine Cocaine Screen (Not Detect) U Marijuana (THC) Screen (Not Detect) 03/14/21 03/14/21 Range/Units 17:09 18:29 WBC (4.8-10.8) X10*3/uL RBC (4.60-5.80) X10*6/uL Hgb (14.0-18.0) g/dl Hct (42.0-52.0) % MCV (80.0-98.0) fL MCH (27.0-33.0) pg MCHC (31.0-36.0) g/dl RDW (11.0-16.0) % Plt Count (160-400) X10*3/uL MPV (9.4-12.4) fL Immature Gran % (Auto) (0.0-0.4) % Neut % (Auto) (45-73) % Lymph % (Auto) (20-40) % [place] % (Auto) (2-11) % Eos % (Auto) (0-4) % Baso % (Auto) (0-2) % Lymph # (Auto) (1.2-4.9) X10*3/uL [place] # (Auto) (0.1-1.2) X10*3/uL Eos # (Auto) (0.0-0.4) X10*3/uL Baso # (Auto) (0.0-0.2) X10*3/uL Abs Immat Gran (auto) (0.00-0.03) X10*3/uL Absolute Neuts (auto) (2.0-8.3) x10*3/uL Absolute Nucleated RBC (0.0-0.012) X10*3/uL Nucleated RBC % (auto) (0.0-0.2) /100WBC PT (9.9-13.0) SEC INR (0.9-1.1) APTT (24.1-38.0) SEC Sodium (135-145) mmol/L Potassium (3.3-5.1) mmol/L Chloride (96-108) mmol/L Carbon Dioxide (22-29) mmol/L Anion Gap (12-20) BUN (9-16) mg/dL Creatinine (0.5-1.4) mg/dL Estim Creat Clear Calc Estimated GFR POC Glucose 90 (60-115) mg/dL Random Glucose (60-115) mg/dL Calcium (8.4-10.2) mg/dL Magnesium (1.6-2.6) mg/dL Total Bilirubin (0.0-1.0) mg/dL Direct Bilirubin (0.0-0.5) mg/dL AST (5-37) U/L ALT (0-40) U/L Alkaline Phosphatase (39-117) U/L Troponin I High Sens (<3.5-35.0) ng/L Total Protein (6.5-8.0) g/dL Albumin (3.5-5.0) g/dL Lipase (8-78) U/L Urine Color Urine Appearance Urine pH (5.0-8.0) Ur Specific [place] (1.005-1.025) Urine Protein (NEG-TRACE) MG/DL Urine Glucose (UA) (NEG) MG/DL Urine Ketones (NEG) MG/DL Urine Blood (NEG) Urine Nitrite (NEG) Ur Leukocyte Esterase (NEG) Urine RBC (0) /HPF Urine WBC (0-4) /HPF Ur Squamous Epith Cells /LPF Calcium Oxalate Crystal /LPF Urine Bacteria /LPF Hyaline Casts /LPF Urine Mucus /LPF Urine Opiates Screen Not Detected (Not Detect) Urine Fentanyl Screen Not Detected (Not Detect) Ur Barbiturates Screen Not Detected (Not Detect) Ur Phencyclidine Scrn Not Detected (Not Detect) Ur Amphetamines Screen Not Detected (Not Detect) U Benzodiazepines Scrn Not Detected (Not Detect) Urine Cocaine Screen Not Detected (Not Detect) U Marijuana (THC) Screen Not Detected (Not Detect) Imaging Data Chest x-ray: Attestation: I personally reviewed and interpreted this imaging study as follows: Radiologist's impression: EXAMINATION: PORTABLE CHEST 1 VIEW CLINICAL INFORMATION: cp . COMPARISON: 10/01/2020. TECHNIQUE: Portable frontal view of the chest was obtained. FINDINGS: The lungs are well expanded. No focal infiltrate, effusion, edema, or pneumothorax. Cardiac and mediastinal silhouettes are within normal limits for technique. No acute bony abnormality seen. XR/XR chest 1V IMPRESSION: No evidence of acute disease. ECG Data ECG #1: Attestation: I personally reviewed and interpreted this ECG as follows: ECG interpretation date: 03/14/21 ECG interpretation time: 15:41 Prior ECG tracings: available for review Interpretation: Vent. rate 95 BPM SD interval 174 ms QRS duration 94 ms QT/QTc 350/439 ms P-R-T axes 37 -31 52 Normal sinus rhythm Left axis deviation Septal infarct (cited on or before 14-MAR-2021) Abnormal ECG When compared with ECG of 20-DEC-2020 17:19, No significant change was found Scores Heart Score History: -1- moderately suspicious ECG: -0- normal Age: -1- >45 - <65 Risk factory: -2- 3 or more risk factors or treated atherosclerosis Troponin: -0- < or = normal limit Score: 4 Risk: 16.6% Discharge Plan Discharge Clinical Impression: Chest pain, Dizziness Patient Disposition: Left Against Medical Advice Instructions: Chest Pain (ED), Dizziness (ED) Additional Instructions: Le evaluaron por dolor en el pecho y mareos despu?s de subir un tramo de escaleras. Tiene antecedentes de infarto de miocardio y AIT. Usted solicit? irse en contra del consejo m?dico. Riesgos significativos que incluyen muerte, accidente cerebrovascular, da?o cerebral y david org?sera. Puede regresar al departamento de emergencias en cualquier momento. Mi por elegir rula departamento de emergencias para gill evaluaci?n. Por favor, brennen un seguimiento con el m?dico de atenci?n primaria seg?n sea necesario. Regrese al departamento de emergencias por cualquier s?ntoma nuevo, preocupante o que empeore. You were evaluated for chest pain and dizziness after walking up a flight of stairs. You do have a history of heart attack and TIA. You requested to leave against medical advice. Significant risks including , stroke, brain damage, and organ failure. You are welcome to return to the emergency department at any time. Thank you for choosing this emergency department for evaluation. Please follow-up with primary care physician as needed. Return to the emergency department for any new, concerning, or worsening symptoms. Prescriptions: No Action insulin degludec 100 unit/mL (3 mL) insulin pen 40 unit subcut QPM 30 Days Qty: 30 RF: 1 insulin aspart U-100 [Novolog Flexpen U-100 Insulin] 100 unit/mL (3 mL) insulin pen 15 unit subcut TID Qty: 15 RF: 4 Trulicity 1.5 mg/0.5 mL pen injector 1.5 mg subcut QWEEK 28 Days Qty: 2 RF: 4 aspirin 81 mg tablet,delayed release (DR/EC) 81 mg PO DAILY Qty: 90 RF: 0 atorvastatin [Lipitor] 80 mg tablet 80 mg PO BEDTIME Qty: 30 RF: 0 gabapentin 600 mg tablet 1 tab PO TID RF: 0 nitroglycerin 0.3 mg tablet, sublingual 1 tab sublingual USEASDIRECTD RF: 0 metformin 500 mg tablet extended release 24 hr 2 tab PO BID RF: 0 hydroxyzine pamoate 25 mg capsule 1 cap PO BEDTIME RF: 0 venlafaxine 75 mg Capsule,Extended Release 24hr 75 mg PO DAILY RF: 0 prazosin 2 mg capsule 1 cap PO BEDTIME RF: 0 nicotine 21 mg/24 hr Patch 24 Hour 21 mg transdermal DAILY Qty: 28 RF: 0 omeprazole 20 mg capsule,delayed release(DR/EC) 20 mg PO BID Qty: 0 RF: 0 metoclopramide HCl [Reglan] 5 mg tablet 5 mg PO TIDWM PRN (Reason: nausea and vomiting) 30 Days RF: 0 lisinopril 5 mg tablet 5 mg PO DAILY Qty: 30 RF: 0 sucralfate 1 gram tablet 1 g PO TID Qty: 90 RF: 0 bupropion HCl 300 mg tablet extended release 24 hr 300 mg PO DAILY RF: 0 aripiprazole 15 mg tablet 15 mg PO DAILY RF: 0 trazodone 100 mg tablet 100 mg PO BEDTIME RF: 0 (DME) pen needle, diabetic 32 gauge x /32 needle See Rx Instructions ea .ROUTE .MEDSUPPLY Qty: 50 RF: 0 (DME) lancets 33 gauge misc See Rx Instructions ea Not Applicable BID Qty: 100 RF: 0 (DME) FreeStyle Lite Strips Strip See Rx Instructions .ROUTE .MEDSUPPLY Qty: 150 RF: 11 (DME) lancets [TRUEplus Lancets] 33 gauge misc See Rx Instructions .ROUTE .MEDSUPPLY Qty: 200 RF: 11 cholecalciferol (vitamin D3) 50 mcg (2,000 unit) capsule 50 mcg PO QAM RF: 0 Citrucel 500 mg tablet 500 mg PO TID Qty: 90 RF: 2 ezetimibe 10 mg tablet 10 mg PO DAILY RF: 0 Stand Alone Forms: Against Medical Advice Interventions: ED Discharge Assessment Last Done: 03/14/21 18:44 Discharge Date/Time: 03/14/21 18:45
[2021-03-14 16:19] VITALS: BP 122/73; PULSE 97; RESP 12; O2SAT 99
[2021-03-14 16:30] LABS: Glucose, Whole Blood 105 mg/dL (60-115)
[2021-03-14 16:30] LABS: MANUAL DIFF FLAG NO
[2021-03-14] MEDS: 0.9 % Sodium Chloride 1,000 ML 999 ML IVCONT ×2 (16:31→17:08)
[2021-03-14 16:35] LABS: Basophils Absolute Auto 0.1 X10*3/uL (0.0-0.2); Basophils Percent Auto 0.9 % (0-2); Eosinophils Absolute Auto 0.2 X10*3/uL (0.0-0.4); Eosinophils Percent Auto 1.2 % (0-4); Hematocrit 41.1 % (42.0-52.0); Hemoglobin 13.9 g/dl (14.0-18.0); Imm Gran Abs Auto 0.04 X10*3/uL (0.00-0.03); Imm Gran Pct Auto 0.3 % (0.0-0.4); Lymphocytes Absolute Auto 3.1 X10*3/uL (1.2-4.9); Lymphocytes Percent Auto 25.1 % (20-40); Mean Corpuscular HGB Conc 33.8 g/dl (31.0-36.0); Mean Corpuscular Hemoglobin 32.1 pg (27.0-33.0); Mean Corpuscular Volume 94.9 fL (80.0-98.0); Mean Platelet Volume 10.5 fL (9.4-12.4); Monocytes Percent Auto 7.9 % (2-11); Neutrophils Absolute Auto 8.1 x10*3/uL (2.0-8.3); Neutrophils Percent Auto 64.6 % (45-73); Platelet Count 187 X10*3/uL (160-400); Red Blood Count 4.33 X10*6/uL (4.60-5.80); Red Cell Distribution Width 13.2 % (11.0-16.0); White Blood Count 12.5 X10*3/uL (4.8-10.8)
[2021-03-14 16:44] LABS: Prothrombin Time 11.7 SEC (9.9-13.0)
[2021-03-14 16:45] VITALS: BP 107/67; BP 122/72; PULSE 88; PULSE 93
[2021-03-14 16:46] VITALS: BP 77/49; PULSE 99
[2021-03-14 16:47] LABS: Partial Thromboplastin Time 33.7 SEC (24.1-38.0)
[2021-03-14 16:50] LABS: Alanine Aminotransferase 26 U/L (0-40); Albumin Level 3.9 g/dL (3.5-5.0); Alkaline Phosphatase 101 U/L (39-117); Anion Gap 12 (12-20); Aspartate Amino Transferase 19 U/L (5-37); Bilirubin Direct 0.3 mg/dL (0.0-0.5); Bilirubin Total 0.7 mg/dL (0.0-1.0); Blood Urea Nitrogen 24 mg/dL (9-16); Calcium 8.9 mg/dL (8.4-10.2); Carbon Dioxide 22 mmol/L (22-29); Chloride 112 mmol/L (96-108); Creatinine Clr Calc Pharmacy 70.7; Estimated Glomerular Filt Rate 53; Glucose Random 107 mg/dL (60-115); Lipase 50 U/L (8-78); Magnesium 1.8 mg/dL (1.6-2.6); Potassium 4.2 mmol/L (3.3-5.1); Sodium 142 mmol/L (135-145)
[2021-03-14 16:51] LABS: Troponin-I High Sensitivity < 3.5 ng/L (<3.5-35.0)
[2021-03-14 17:21] LABS: Appearance Urine CLEAR; Color Urine YELLOW; Glucose Urine UA NEG (NEG); Leukocyte Esterase Urine NEG (NEG); Nitrite Urine NEG (NEG); PH 5.5 (5.0-8.0); Specific Gravity - Urine >= 1.030 (1.005-1.025); UACC Culture Trigger NO; Urine Blood NEG (NEG); Urine Ketones 5 MG/DL (NEG); Urine Protein 1+ MG/DL (NEG-TRACE)
[2021-03-14 17:33] LABS: Amphetamine Screen Urine Not Detected (Not Detect); Barbiturates, Urine Not Detected (Not Detect); Benzodiazepines Screen Urine Not Detected (Not Detect); Cannabinoid Screen Urine Not Detected (Not Detect); Cocaine Screen Urine Not Detected (Not Detect); Fentanyl, urine Not Detected (Not Detect); Opiate Screen Urine Not Detected (Not Detect); Phencyclidine Screen Urine Not Detected (Not Detect)
[2021-03-14 17:52] LABS: Mucus Urine TRACE /LPF; RBC Urine 0-2 /HPF (0); Squamous Epithelial Cell Urine TRACE /LPF; WBC Urine 0-2 /HPF (0-4)
[2021-03-14 17:53] LABS: Calcium Oxalate Crystals Urine TRACE /LPF; Hyaline Casts Urine 0-2 /LPF
[2021-03-14 18:20] VITALS: BP 112/74; PULSE 88; RESP 17; TEMP 36.7; O2SAT 100
[2021-03-14 18:35] LABS: Glucose, Whole Blood 90 mg/dL (60-115)
== END 2021-03-14 18:45 | disposition left against medical advice (07) ==
PROVIDERS: Nurse Practitioner Family; Emergency Provider Emergency Medicine
DX: R07.89 Other chest pain (principal); R42 Dizziness and giddiness; E11.9 Type 2 diabetes mellitus without complications; E78.5 Hyperlipidemia, unspecified; I10 Essential (primary) hypertension; Z79.899 Other long term (current) drug therapy; Z87.891 Personal history of nicotine dependence
CPT/HCPCS: 36415; 71045; 80048; 80076; 80307; 81001; 82947; 83690; 83735; 84484; 85025; 85610; 85730; 93005; 96360; 96361; 99284

== ENCOUNTER 2021-03-17 15:33 | Outpatient (REF) | payer OTHER, SELFPAY ==
--- NOTE | ~2021-03-17 | US_ITS ---
EXAMINATION: US THYROID CLINICAL INFORMATION: Goiter COMPARISON: CT soft tissue neck 05/28/2017. TECHNIQUE: Linear transducer grayscale and color Doppler examination with attention to the region of the thyroid. FINDINGS: SIZE: Measurements of the thyroid lobes and nodules are given in sagittal, anteroposterior and transverse dimensions respectively. Right Thyroid Lobe: 5.5 x 2.4 x 1.7 cm, volume 11.7 mL. Parenchyma: The gland echotexture is homogeneous. Thyroid vascularity is normal. Left Thyroid Lobe: 4.3 x 2.0 x 1.8 cm, volume 8.1 mL. Parenchyma: The gland echotexture is homogeneous. Thyroid vascularity is normal. Isthmus: 0.4 cm in maximum AP dimension. No focal thyroid nodule is seen. NODES: No lymphadenopathy is seen in the tissue surrounding the thyroid gland. US/US thyroid IMPRESSION: Unremarkable thyroid ultrasound. ACR TI-RADS RECOMMENDATION REFERENCE: Ultrasound-guided fine-needle aspiration, followup ultrasound, no further follow up. * TR1 (0 point) and TR 2 (2 points): No FNA or follow up * TR3 (3 points): FNA if more than or equal to 2.5 cm in maximum dimension, followup ultrasound in 1, 3 and 5 years if 1.5 to 2.4 cm in maximum dimension. * TR4 (4-6 points): FNA if more than or equal to 1.5 cm in maximum dimension, followup ultrasound in 1, 2, 3 and 5 years if 1 to 1.4 cm in maximum dimension. * TR5 (more than or equal to 7 points): FNA if more than or equal to 1 cm in maximum dimension, followup ultrasound every year for 5 years if 0.5 to 0.9 cm in maximum dimension. * TR3, TR4 or TR5 nodules that are below the size threshold for follow up receive no follow up.
== END 2021-03-17 15:34 | disposition home or self-care (01) ==
LOC: HO.US 15:33
PROVIDERS: Visit Provider Internal Medicine
DX: R79.89 Other specified abnormal findings of blood chemistry (principal); E04.9 Nontoxic goiter, unspecified
CPT/HCPCS: 76536

== ENCOUNTER 2021-04-27 16:52 | Observation (INO) | payer OTHER, SELFPAY ==
--- NOTE | 2021-04-27 | EEG_ITS ---
Waking background activity consists of low voltage fast frequencies seen diffusely, intermixed with muscle artifacts anteriorly, and low voltage posterior 10 hertz alpha. Drowsiness is characterized by diffuse theta slowing. Photic stimulation, hyperventilation were omitted. No focal, lateralizing, or paroxysmal discharges seen. IMPRESSION: This awake and drowsy electroencephalogram is within normal limits. MD LONA Mathew/ROBER / [id number]
--- NOTE | ~2021-04-27 | CT_ITS ---
EXAMINATION: CT HEAD WITHOUT CONTRAST (STROKE PROTOCOL) CLINICAL INFORMATION: Stroke protocol. Right-sided weakness. COMPARISON: CT head dated from 09/26/2020. TECHNIQUE: Contiguous axial imaging was performed from the skull base to vertex without intravenous administration of contrast. This CT examination was performed using dose optimization techniques as appropriate, variously including the following: *Automated exposure control *Adjustment of mA and/or kV according to patient size (this includes techniques or standardized protocols for targeted exams where dose is matched to indication/reason for exam; i.e. extremities or head) *Use of iterative reconstruction technique DLP: 868 mGy-cm FINDINGS: There is no intracranial hemorrhage, hematoma, or extra-axial fluid collection. The ventricles are normal in size. There is no hydrocephalus, edema, or mass effect. The tierney-white matter differentiation appears symmetric. There is no acute infarct or mass lesion. The calvarium appears intact. There is no pneumocephalus or orbital emphysema. The visualized sinuses and middle ears and mastoid air cells show no significant mucosal thickening. There are no air-fluid levels. CT/CT head for stroke IMPRESSION: No acute intracranial pathology. This critical result was discussed with Arya RAJAN at 5:48 PM on 04/27/2021 It was ascertained that the content and urgency of the report was understood at the time of direct communication.
--- NOTE | ~2021-04-27 | CT_ITS ---
EXAMINATION: CT angio head neck stroke CLINICAL INFORMATION: Right-sided weakness. Slurred speech. COMPARISON: CT scan of the head 04/28/2019. TECHNIQUE: Marine Engine Machinist Apprentice images were obtained. A CT angiogram of the head and neck was performed in the arterial phase after the intravenous administration of 50 mL Omnipaque 350. Delayed postcontrast images of the head were also obtained. MIP reconstructions were generated in multiple orientations at the acquisition workstation. Multiple three-dimensional surface rendered images and maximum intensity projection images were generated on a dedicated 3-D lab workstation. Arterial stenoses are measured in accordance with NASCET criteria or similar method if applicable. This CT examination was performed using dose optimization techniques as appropriate, including one or more of the following: Automated exposure control, iterative reconstruction, and adjustment of technique factors (mA and/or kVp) according to patient size (this includes techniques or standardized protocols for targeted exams where dose is matched to indication/reason for exam). Total exam dose-length product 1772 mGy-cm FINDINGS: Head: Postcontrast images reveal no abnormal intracranial mass or enhancement. 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 There is no intracranial mass effect or midline shift. Lateral and third ventricles are normal. No hydrocephalus. Monae-white matter differentiation is preserved and there is no evidence of acute territorial infarct. The calvarium and skull base are intact. Mastoid air cells and middle ear cavities are well aerated. No active paranasal sinus disease. CT angiogram neck: The aortic arch apex is normal. Origins of the major aortic branches are widely patent. Common carotid arteries and carotid bifurcations are normal. No stenosis of the extracranial internal carotid arteries. Cervical segments of the vertebral arteries as well as their origins are patent. CT angiogram head: Intracranial internal carotids are patent. The intradural vertebral artery segments and basilar artery are patent. Anterior, middle, and posterior cerebral artery complexes are normal. No intracranial large vessel occlusion. Other: Soft tissues of the neck including the thyroid gland are normal. Visualized lung apices are clear. There is an acute osseous finding. There is disc osteophyte spurring at C7 causing indentation of the thecal sac. Otherwise no canal compromise CT/CT angio head neck stroke IMPRESSION: Unremarkable examination in that there is no stenosis of the cervical carotid or vertebral arteries. No intracranial large vessel occlusion. No evidence of acute territorial infarct or hemorrhage. No abnormal intracranial mass or enhancement. This critical result was discussed with Arya Roman NP at 6:07 PM on 04/27/2021 and it was ascertained that the content and urgency of the report was understood at the time of direct communication.
--- NOTE | ~2021-04-27 | XR_ITS ---
EXAMINATION: XR CHEST CLINICAL INFORMATION: Shortness of breath and weakness COMPARISON: 03/14/2021 TECHNIQUE: Frontal view of the chest was obtained. FINDINGS: No significant abnormality is noted involving the heart, lungs, mediastinum, bony thorax or soft tissues. XR/XR chest 1V IMPRESSION: Unremarkable examination.
--- NOTE | 2021-04-27 16:58 | ECG_ITS ---
Test Reason : cp Blood Pressure : / mmHG Vent. Rate : 088 BPM Atrial Rate : 088 BPM P-R Int : 178 ms QRS Dur : 090 ms QT Int : 346 ms P-R-T Axes : 031 -23 034 degrees QTc Int : 418 ms Normal sinus rhythm Possible Anterior infarct (cited on or before 14-MAR-2021) Abnormal ECG When compared with ECG of 14-MAR-2021 15:41, Questionable change in initial forces of Septal leads Referred By: Arya Gutierrez Electronically Signed By:JOHN MARTIN MD
--- NOTE | 2021-04-27 16:59 | ED.CHESTPAIN ---
HPI - Chest Pain General Chief Complaint: Weakness Stated Complaint: Chest Pain Weakness Time Seen by Provider: 04/27/21 16:58 Source: patient Mode of arrival: ambulatory Limitations: other (poor historian) History of Present Illness HPI narrative: This is a 51-year-old male past medical history significant for cva, anxiety, dm, htn,hld, high serum LH presenting to the emergency department with weakness and chest pain since this morning. Patient tells me that he has not been feeling right since Saturday, 4 days ago when he had a seizure. When he had a seizure he did fall and hit his head. He tells me today he did not have a seizure however he suddenly started feeling very weak and started having substernal nonradiating severe episodic chest pain that lasts seconds. Patient tells me that at this time he is still having the chest pain and he is still feeling extremely weak. He also reports intermittent dizziness. He is unable to tell me exactly with the dizziness feels like. He is a poor historian therefore history taking is limited. He denies vision changes, numbness, tingling, shortness of breath. MD complaint: chest pain Onset (ago): day(s) (1) Timing of current episode: episodic Prior episodes: No Onset: during rest Pain location: substernal Pain radiation: none Severity: moderate Quality: heaviness Relieving factors: nothing Exacerbating factors: nothing Associated symptoms: other (weakness) Treatment prior to arrival: none Related Data Home Medications Medication Instructions Recorded Confirmed aripiprazole 15 mg tablet 15 mg PO DAILY 07/20/20 02/28/21 bupropion HCl 300 mg 24 hr tablet, 300 mg PO DAILY 07/20/20 02/28/21 extended release lancets 33 gauge #100 ea 07/20/20 02/28/21 pen needle, diabetic 32 gauge x #50 ea 07/20/20 02/28/2132 trazodone 100 mg tablet 100 mg PO BEDTIME 07/20/20 02/28/21 cholecalciferol (vitamin D3) 50 50 mcg PO QAM 11/03/20 02/28/21 mcg (2,000 unit) capsule gabapentin 600 mg tablet 1 tab PO TID 11/09/20 02/28/21 hydroxyzine pamoate 25 mg capsule 1 cap PO BEDTIME 11/09/20 02/28/21 metformin 500 mg tablet,extended 2 tab PO BID 11/09/20 02/28/21 release 24 hr nitroglycerin 0.3 mg sublingual 1 tab SUBLINGUAL USEASDIRECTD 11/09/20 02/28/21 tablet prazosin 2 mg capsule 1 cap PO BEDTIME 11/09/20 02/28/21 venlafaxine 75 mg capsule,extended 75 mg PO DAILY 11/09/20 02/28/21 release 24 hr ezetimibe 10 mg tablet 10 mg PO DAILY 02/28/21 02/28/21 Previous Rx's Medication Instructions Recorded blood sugar diagnostic (FreeStyle #150 ea 07/20/20 Lite Strips) lancets 33 gauge (TRUEplus Lancets) #200 ea 07/20/20 aspirin 81 mg tablet,delayed 81 mg PO DAILY #90 tab 09/28/20 release atorvastatin 80 mg tablet (Lipitor) 80 mg PO BEDTIME #30 tab 09/28/20 methylcellulose (laxative) 500 mg 500 mg PO TID #90 tab 11/03/20 tablet (Citrucel) nicotine 21 mg/24 hr daily 21 mg TRANSDERMAL DAILY #28 ea 11/16/20 transdermal patch sucralfate 1 gram tablet 1 g PO TID #90 tab 11/22/20 metoclopramide HCl 5 mg tablet 5 mg PO TIDWM PRN 30 Days tab 11/26/20 (Reglan) omeprazole 20 mg capsule,delayed 20 mg PO BID #0 cap 11/26/20 release lisinopril 5 mg tablet 5 mg PO DAILY #30 tab 11/29/20 insulin degludec 100 unit/mL (3 40 unit (0.4 mL) SUBCUT QPM 30 12/19/20 mL) subcutaneous pen Days #30 ml dulaglutide 1.5 mg/0.5 mL 1.5 mg (0.5 mL) SUBCUT QWEEK 28 01/03/21 subcutaneous pen injector Days #2 ml (Trulicity) insulin aspart U-100 100 unit/mL 15 unit (0.15 mL) SUBCUT TID #15 ml 01/03/21 (3 mL) subcutaneous pen (Novolog Flexpen U-100 Insulin aspart) Allergies Allergy/AdvReac Type Severity Reaction Status Date / Time No Known Allergies Allergy Verified 02/28/21 14:37 [No Known Allergies*] Review of Systems Review of Systems: Constitutional : No Weight loss, No Fever, No Chills, + Fatigue, + Malaise ENT/Mouth : No sore throat, No Rhinorrhea Eyes: No Eye Pain, No Swelling, No Redness Cardiovascular : + Chest Pain, No SOB, No Dyspnea on Exertion, No Orthopnea, No Edema, No Palpitations Respiratory : No Cough, No Sputum, No Wheezing Gastrointestinal : No Nausea, No Vomiting, No Diarrhea, No Constipation, No abdominal Pain, No Hematochezia, No Melena Genitourinary : No Dysuria, No Urinary Frequency, No Hematuria, Musculoskeletal : No joint pain, No Myalgias, No Joint Swelling Skin : No Skin Lesions, No rash Neuro : + Weakness, No Numbness, + Dizziness, No Headache Psych : No Anxiety/Panic, No Depression All other systems reviewed and are negative Yes all other systems are reviewed and are negative [facility] Past Medical History Attestation statement: The following information was validated with the patient. Source: old records reviewed and nursing notes reviewed Medical History Anxiety Arthritis Chronic diarrhea Depression Diabetes Essential hypertension Goiter High cholesterol High cholesterol High serum luteinizing hormone (LH) History of myocardial infarction HTN (hypertension) Hyperlipidemia LDL goal <70 Normal echocardiogram Tobacco use disorder Type 2 diabetes mellitus with unspecified complications Surgical History H/O cardiac catheterization History of appendectomy Hx of foot surgery Family History Family History Mother Alzheimer disease HTN (hypertension) Father Old age Brother Diabetes mellitus Maternal Grandmother Diabetes mellitus Heart disease Social History Social History Household Members: Family and Friend(s) Household Members Other:: Roommate Housing: House Do you presently have visiting nurse or other home services: No Alcohol intake: former Year quit: 2019 Patient Tobacco Use Status: Former Tobacco user Quit Date: 12/2019 Tobacco use type: Cigarette Years Smoked: 35 +/- Second Hand Smoke Exposure: No Substance Use Type: Crack/Cocaine and Other Advance Directives: Yes Advance Directives on File: Yes Advance Directives Date on File: 10/13/21 service: No Current occupational status: unemployed and disabled Physical Exam Vital Signs: Vital Signs: Last Vital Signs Temp 98.3 F 04/27/21 17:24 Pulse 88 04/27/21 22:15 Resp 17 04/27/21 22:15 BP 127/70 04/27/21 22:15 Pulse Ox 98 04/27/21 22:15 BMI result Body Mass Index 29.4 Appearance: Alert.? Oriented X3.? No acute distress.? Patient is slurring words, slow to respond. Appears to be leaning and favoring his right side. Head: Normocephalic, atraumatic, no step-offs or deformities. No facial droop noted. Nasal labial folds symmetric. Eyes: Pupils equal, round and reactive to light.? ENT: Pharynx normal.? Neck: Normal inspection.? Neck supple.? CVS: Normal heart rate and rhythm.? Pulses normal.? Respiratory: No respiratory distress.? Breath sounds normal.? Abdomen: Soft and nontender.? Skin: Skin warm and dry.? Normal skin color.? Normal skin turgor.? Extremities: No lower extremity edema.? No calf ttp. 3/5 strength to right-sided arm and leg. 4/5 to left arm and leg. Back: No midline tenderness, no C-spine tenderness, full range of motion, no CVA tenderness bilaterally Neuro: Oriented X 3.? No motor deficit.? No sensory deficit. CN 2-12 intact. Patient noted to have diffuse weakness however worse on the right-hand side. NIH Stroke Scale Internal: Initial- Upon Arrival Level of Consciousness: Alert Level of Consciousness Questions: Answers both questions correctly Level of Consciousness Commands: Performs both tasks correctly Best Gaze: Normal Visual: No visual loss Facial Palsy: Normal Motor Arm (Right): Drift Motor Arm (Left): No drift Motor Leg (Right): Drift Motor Leg (Left): No drift Limb Ataxia: Absent Sensory: Normal Best Language: Mild to moderate aphasia Dysarthia: Normal Extinction and Inattention: No abnormality Score: 3 Course Reevaluation(s) Reevaluation #1: Patient's CBC appears to be at baseline. No acute electrolyte abnormalities. Troponin negative BNP negative. Total CK slightly elevated will hydrate with fluids however not meeting criteria for rhabdomyolysis. Patient COVID negative. CT/CTA with no acute findings. Urine pending. Time: 18:30 Reevaluation #2: Patient remains slow to answer questions, and weak. Tried reaching out to his emergency contact to obtain history from them as patient is not a great historian no answer. Time: 20:25 Reevaluation #3: Patient is ambulating well. Appears to be much more alert than he was earlier. According to nurse he was able to clarify this story it appears as though patient has been having seizures recently this has been new in onset and they have been switching his medications lately unsure who patient's neurologist is. Patient does not know. Family member not answering. I looked in the chart it appears as though patient has seen Dr. Knowles back in 2020. However not recently. At this time patient is ambulating with a steady gait, speaking much better than he was when he arrived. Time: 22:55 Additional Reevaluation(s): 2300 I was able to speak to patient's daughter who clarify the story it appears as though patient was walking in the grocery store, suddenly became faint, lost consciousness had what sounds like a blank stare seizure. They tell me he did not have convulsions. However this has been going on for a while and he continues to have these episodes. Initially when this happened he was in [place] however it has been occurring more frequently last time this happened was sometime last week. He was referred to a neurologist in [place] to get an EEG and he was not started on medications because they did not want to start him on anything until they had a diagnosis. He tells me that he speaking to a clinic somewhere down here to be evaluated by Neurology however it is going to be a while. Patient appears completely different than he did when he 1st arrived. Ambulating with a steady gait, fluid speech, no neuro deficits. I advised patient that I feel like he should stay in the hospital as this could have been a TIA, or some type of seizure and he should be evaluated by Neurology. Patient agrees to stay in the hospital. Will recheck hospitalist for admission. 2306 Patient will be admitted into hospital MDM - Chest Pain MDM Narrative Medical decision making narrative: 1700 51 yo m pmhx cva, anxiety, dm, htn,hld, high serum LH presents with substernal chest pain, and weakness started this morning. Physical examination significant for right arm and leg weakness. Patient responding slowly, with slurred speech. He is noted to be hypotensive. Plan labs, EKG, chest x-ray, head CT. At this time will do a stroke protocol patient. Based off patient history patient is outside of the tPA stroke window. He is also excluded from tPA as there may have been a seizure that occurred. Medical Records Data Attestation: I reviewed the patient's medical records. Lab Data Attestation: I reviewed the patient's lab results. Result diagrams: 04/27/21 17:17 04/27/21 17:17 Labs: Lab Results 04/27/21 04/27/21 04/27/21 Range/Units 17:16 17:16 17:16 WBC (4.8-10.8) X10*3/uL RBC (4.60-5.80) X10*6/uL Hgb (14.0-18.0) g/dl Hct (42.0-52.0) % MCV (80.0-98.0) fL MCH (27.0-33.0) pg MCHC (31.0-36.0) g/dl RDW (11.0-16.0) % Plt Count (160-400) X10*3/uL MPV (9.4-12.4) fL Immature Gran % (Auto) (0.0-0.4) % Neut % (Auto) (45-73) % Lymph % (Auto) (20-40) % [place] % (Auto) (2-11) % Eos % (Auto) (0-4) % Baso % (Auto) (0-2) % Lymph # (Auto) (1.2-4.9) X10*3/uL [place] # (Auto) (0.1-1.2) X10*3/uL Eos # (Auto) (0.0-0.4) X10*3/uL Baso # (Auto) (0.0-0.2) X10*3/uL Abs Immat Gran (auto) (0.00-0.03) X10*3/uL Absolute Neuts (auto) (2.0-8.3) x10*3/uL Absolute Nucleated RBC (0.0-0.012) X10*3/uL Nucleated RBC % (auto) (0.0-0.2) /100WBC PT 11.3 (9.9-13.0) SEC INR 1.0 (0.9-1.1) APTT 33.5 (24.1-38.0) SEC Sodium (135-145) mmol/L Potassium (3.3-5.1) mmol/L Chloride (96-108) mmol/L Carbon Dioxide (22-29) mmol/L Anion Gap (12-20) BUN (9-16) mg/dL Creatinine (0.5-1.4) mg/dL Estim Creat Clear Calc Estimated GFR POC Glucose (60-115) mg/dL Random Glucose (60-115) mg/dL Calcium (8.4-10.2) mg/dL Total Bilirubin (0.0-1.0) mg/dL AST (5-37) U/L ALT (0-40) U/L Alkaline Phosphatase (39-117) U/L Total Creatine Kinase (38-174) U/L Troponin I High Sens < 3.5 (<3.5-35.0) ng/L B-Natriuretic Peptide < 10 (<100) pg/mL Total Protein (6.5-8.0) g/dL Albumin (3.5-5.0) g/dL Ethyl Alcohol < 10 mg/dL COVID-19 (DANIEL) (Negative) COVID-19 Clin Com 04/27/21 04/27/21 04/27/21 Range/Units 17:17 17:17 17:17 WBC 9.2 (4.8-10.8) X10*3/uL RBC 4.05 L (4.60-5.80) X10*6/uL Hgb 13.0 L (14.0-18.0) g/dl Hct 39.3 L (42.0-52.0) % MCV 97.0 (80.0-98.0) fL MCH 32.1 (27.0-33.0) pg MCHC 33.1 (31.0-36.0) g/dl RDW 13.2 (11.0-16.0) % Plt Count 215 (160-400) X10*3/uL MPV 11.0 (9.4-12.4) fL Immature Gran % (Auto) 0.2 (0.0-0.4) % Neut % (Auto) 42.4 L (45-73) % Lymph % (Auto) 46.3 H (20-40) % [place] % (Auto) 7.0 (2-11) % Eos % (Auto) 2.6 (0-4) % Baso % (Auto) 1.5 (0-2) % Lymph # (Auto) 4.3 (1.2-4.9) X10*3/uL [place] # (Auto) 0.6 (0.1-1.2) X10*3/uL Eos # (Auto) 0.2 (0.0-0.4) X10*3/uL Baso # (Auto) 0.1 (0.0-0.2) X10*3/uL Abs Immat Gran (auto) 0.02 (0.00-0.03) X10*3/uL Absolute Neuts (auto) 3.9 (2.0-8.3) x10*3/uL Absolute Nucleated RBC 0.000 (0.0-0.012) X10*3/uL Nucleated RBC % (auto) 0.0 (0.0-0.2) /100WBC PT (9.9-13.0) SEC INR (0.9-1.1) APTT (24.1-38.0) SEC Sodium 143 (135-145) mmol/L Potassium 4.0 (3.3-5.1) mmol/L Chloride 109 H (96-108) mmol/L Carbon Dioxide 24 (22-29) mmol/L Anion Gap 14 (12-20) BUN 18 H (9-16) mg/dL Creatinine 1.30 (0.5-1.4) mg/dL Estim Creat Clear Calc 77.8 Estimated GFR 58 POC Glucose (60-115) mg/dL Random Glucose 113 (60-115) mg/dL Calcium 9.3 (8.4-10.2) mg/dL Total Bilirubin 0.6 (0.0-1.0) mg/dL AST 21 (5-37) U/L ALT 25 (0-40) U/L Alkaline Phosphatase 106 (39-117) U/L Total Creatine Kinase 180 H (38-174) U/L Troponin I High Sens (<3.5-35.0) ng/L B-Natriuretic Peptide (<100) pg/mL Total Protein 7.0 (6.5-8.0) g/dL Albumin 4.0 (3.5-5.0) g/dL Ethyl Alcohol mg/dL COVID-19 (DANIEL) Negative (Negative) COVID-19 Clin Com See Note 04/27/21 Range/Units 17:25 WBC (4.8-10.8) X10*3/uL RBC (4.60-5.80) X10*6/uL Hgb (14.0-18.0) g/dl Hct (42.0-52.0) % MCV (80.0-98.0) fL MCH (27.0-33.0) pg MCHC (31.0-36.0) g/dl RDW (11.0-16.0) % Plt Count (160-400) X10*3/uL MPV (9.4-12.4) fL Immature Gran % (Auto) (0.0-0.4) % Neut % (Auto) (45-73) % Lymph % (Auto) (20-40) % [place] % (Auto) (2-11) % Eos % (Auto) (0-4) % Baso % (Auto) (0-2) % Lymph # (Auto) (1.2-4.9) X10*3/uL [place] # (Auto) (0.1-1.2) X10*3/uL Eos # (Auto) (0.0-0.4) X10*3/uL Baso # (Auto) (0.0-0.2) X10*3/uL Abs Immat Gran (auto) (0.00-0.03) X10*3/uL Absolute Neuts (auto) (2.0-8.3) x10*3/uL Absolute Nucleated RBC (0.0-0.012) X10*3/uL Nucleated RBC % (auto) (0.0-0.2) /100WBC PT (9.9-13.0) SEC INR (0.9-1.1) APTT (24.1-38.0) SEC Sodium (135-145) mmol/L Potassium (3.3-5.1) mmol/L Chloride (96-108) mmol/L Carbon Dioxide (22-29) mmol/L Anion Gap (12-20) BUN (9-16) mg/dL Creatinine (0.5-1.4) mg/dL Estim Creat Clear Calc Estimated GFR POC Glucose 106 (60-115) mg/dL Random Glucose (60-115) mg/dL Calcium (8.4-10.2) mg/dL Total Bilirubin (0.0-1.0) mg/dL AST (5-37) U/L ALT (0-40) U/L Alkaline Phosphatase (39-117) U/L Total Creatine Kinase (38-174) U/L Troponin I High Sens (<3.5-35.0) ng/L B-Natriuretic Peptide (<100) pg/mL Total Protein (6.5-8.0) g/dL Albumin (3.5-5.0) g/dL Ethyl Alcohol mg/dL COVID-19 (DANIEL) (Negative) COVID-19 Clin Com ECG Data ECG #1: Attestation: I personally reviewed and interpreted this ECG as follows: ECG interpretation date: 04/27/21 ECG interpretation time: 18:30 Prior ECG tracings: available for review Interpretation: Ventricular rate 88, CA normal, QRS normal, QT/QTC normal. EKG shows normal sinus rhythm. There are Q-waves noted in lead V1 and a small R-wave in V3. No ST elevations or inversions concerning for acute ischemia. No significant changes when compared to EKG from February 2021. Critical Care Time Critical Care Time Critical Care Time: No Discharge Plan Discharge Clinical Impression: Weakness, Altered mental status Patient Disposition: Admitted As Inpatient Prescriptions: No Action insulin degludec 100 unit/mL (3 mL) insulin pen 40 unit subcut QPM 30 Days Qty: 30 1RF insulin aspart U-100 [Novolog Flexpen U-100 Insulin] 100 unit/mL (3 mL) insulin pen 15 unit subcut TID Qty: 15 4RF Trulicity 1.5 mg/0.5 mL pen injector 1.5 mg subcut QWEEK 28 Days Qty: 2 4RF aspirin 81 mg tablet,delayed release (DR/EC) 81 mg PO DAILY Qty: 90 0RF atorvastatin [Lipitor] 80 mg tablet 80 mg PO BEDTIME Qty: 30 0RF gabapentin 600 mg tablet 1 tab PO TID 0RF nitroglycerin 0.3 mg tablet, sublingual 1 tab sublingual USEASDIRECTD 0RF Rx Instructions: Dissolve 1 tablet under the tongue. May repeat after 5 minutes one time metformin 500 mg tablet extended release 24 hr 2 tab PO BID 0RF hydroxyzine pamoate 25 mg capsule 1 cap PO BEDTIME 0RF venlafaxine 75 mg Capsule,Extended Release 24hr 75 mg PO DAILY 0RF Rx Instructions: Take with 150 mg tablet prazosin 2 mg capsule 1 cap PO BEDTIME 0RF nicotine 21 mg/24 hr Patch 24 Hour 21 mg transdermal DAILY Qty: 28 0RF omeprazole 20 mg capsule,delayed release(DR/EC) 20 mg PO BID Qty: 0 0RF metoclopramide HCl [Reglan] 5 mg tablet 5 mg PO TIDWM PRN (Reason: nausea and vomiting) 30 Days 0RF lisinopril 5 mg tablet 5 mg PO DAILY Qty: 30 0RF sucralfate 1 gram tablet 1 g PO TID Qty: 90 0RF bupropion HCl 300 mg tablet extended release 24 hr 300 mg PO DAILY 0RF aripiprazole 15 mg tablet 15 mg PO DAILY 0RF trazodone 100 mg tablet 100 mg PO BEDTIME 0RF (DME) pen needle, diabetic 32 gauge x needle See Rx Instructions ea .ROUTE .MEDSUPPLY Qty: 50 0RF Rx Instructions: As directed (DME) lancets 33 gauge misc See Rx Instructions ea Not Applicable BID Qty: 100 0RF Rx Instructions: As directed (DME) FreeStyle Lite Strips Strip See Rx Instructions .ROUTE .MEDSUPPLY Qty: 150 11RF Rx Instructions: As directed four times a day (DME) lancets [TRUEplus Lancets] 33 gauge misc See Rx Instructions .ROUTE .MEDSUPPLY Qty: 200 11RF Rx Instructions: 4 x/day cholecalciferol (vitamin D3) 50 mcg (2,000 unit) capsule 50 mcg PO QAM 0RF Citrucel 500 mg tablet 500 mg PO TID Qty: 90 2RF ezetimibe 10 mg tablet 10 mg PO DAILY 0RF
[2021-04-27 17:23] LABS: MANUAL DIFF FLAG NO
[2021-04-27 17:24] VITALS: BP 115/60; BP 89/50; PULSE 90; RESP 13; TEMP 36.8; O2SAT 96; BMI 29.4
[2021-04-27 17:29] LABS: Glucose, Whole Blood 106 mg/dL (60-115)
[2021-04-27 17:30] LABS: Basophils Absolute Auto 0.1 X10*3/uL (0.0-0.2); Basophils Percent Auto 1.5 % (0-2); Eosinophils Absolute Auto 0.2 X10*3/uL (0.0-0.4); Eosinophils Percent Auto 2.6 % (0-4); Hematocrit 39.3 % (42.0-52.0); Imm Gran Abs Auto 0.02 X10*3/uL (0.00-0.03); Imm Gran Pct Auto 0.2 % (0.0-0.4); Lymphocytes Absolute Auto 4.3 X10*3/uL (1.2-4.9); Lymphocytes Percent Auto 46.3 % (20-40); Mean Corpuscular HGB Conc 33.1 g/dl (31.0-36.0); Mean Corpuscular Hemoglobin 32.1 pg (27.0-33.0); Monocytes Absolute Auto 0.6 X10*3/uL (0.1-1.2); Neutrophils Absolute Auto 3.9 x10*3/uL (2.0-8.3); Neutrophils Percent Auto 42.4 % (45-73); Platelet Count 215 X10*3/uL (160-400); Red Blood Count 4.05 X10*6/uL (4.60-5.80); Red Cell Distribution Width 13.2 % (11.0-16.0); White Blood Count 9.2 X10*3/uL (4.8-10.8)
[2021-04-27 17:32] LABS: Prothrombin Time 11.3 SEC (9.9-13.0)
[2021-04-27 17:35] LABS: Partial Thromboplastin Time 33.5 SEC (24.1-38.0)
[2021-04-27 17:41] LABS: Stroke Lab Use COMPLETE
[2021-04-27 17:45] LABS: Ethanol < 10 mg/dL
[2021-04-27 17:46] LABS: Alanine Aminotransferase 25 U/L (0-40); Alkaline Phosphatase 106 U/L (39-117); Anion Gap 14 (12-20); Aspartate Amino Transferase 21 U/L (5-37); Bilirubin Total 0.6 mg/dL (0.0-1.0); Blood Urea Nitrogen 18 mg/dL (9-16); Calcium 9.3 mg/dL (8.4-10.2); Carbon Dioxide 24 mmol/L (22-29); Chloride 109 mmol/L (96-108); Creatinine Clr Calc Pharmacy 77.8; Estimated Glomerular Filt Rate 58; Glucose Random 113 mg/dL (60-115); Sodium 143 mmol/L (135-145)
[2021-04-27 17:49] LABS: B Type Natriuretic Peptide < 10 pg/mL (<100); Troponin-I High Sensitivity < 3.5 ng/L (<3.5-35.0)
[2021-04-27] MEDS: iohexoL 350 MG/ML 100 ML INFUS..BTL IV (17:55)
[2021-04-27 18:00] LABS: COVID-19 Test Negative (Negative); IDNOW Serial# 16C4AD1C
[2021-04-27] MEDS: 0.9 % Sodium Chloride 1,000 ML 999 ML IV (18:15)
[2021-04-27 19:05] VITALS: BP 133/84; PULSE 86; RESP 13; O2SAT 98
--- NOTE | 2021-04-27 19:11 | PC.NURSE ---
patient noted to be moving right arm at this time, picking up phone and texting with arm. patient still very lethargic, falls asleep quickly when not stimulated.
--- NOTE | 2021-04-27 22:13 | PC.NURSE ---
ambulated patient at this time, no apparent distress. walks with steady gait, able to put on own shoes without assistance. patient provides more detail about events leading to coming to ED. patient reports that he was shopping when he began to feel like he was going to pass out. patient defecated on himself and took him home to clean up. called ambulance from home, patient reports having seizures over the last few weeks and being followed by a neurologist who is trying different medications for him.
[2021-04-27 22:15] VITALS: BP 127/70; PULSE 88; RESP 17; O2SAT 98
--- NOTE | 2021-04-27 23:29 | PM.IMHP ---
History of Present Illness Date of Service: 04/27/21 Chief Complaint: lethargy this is a Australian-speaking 51-year-old male with past medical history of diabetes, hypertension, hyperlipidemia, coronary artery disease, history of CVA who presents to the hospital with complaints of an episode of weakness lethargy and a transient episode where the patient was not answering his family for few minutes. History is obtained from patient, he is alert and oriented x3. Patient reports that he was recently diagnosed with seizure last week when he visited his family in [place]. He was scheduled to have an EEG but left the stating came back to [place]. He was scheduled for an outpatient EEG but he did not have a chance to have that done yet. He had not been started on medications for this. Patient reports that he most likely had a seizure at home again. He felt the same. He was postictal when he arrived to the ED. he had lost control of bladder and bowel during the episode. is usually incontinent of bowel at baseline. When he arrived to the ED. He reports that he also experienced substernal pressure-like chest pain right before the episode occurred. On waking up he had right-sided weakness on the upper and lower extremity. No loss of speech, and no droopiness of the face. Per ED PA, on arrival patient was postictal, he had right-sided weakness, a stroke protocol was done, head CT showed no acute intracranial pathology. Head and neck CT angiogram showed unremarkable examination in that there is no stenosis of the cervical carotid or vertebral arteries. No intracranial large vessel occlusion. Patient's labs are also reviewed and are unremarkable. troponin negative, EKG shows possible anterior infarct cited in previous EKG with no significant ST T-wave changes suggestive of ACS patient will be admitted for further management Review of Systems Review of Systems: Yes all other systems are reviewed and are negative [facility] Medical History Anxiety Arthritis Chronic diarrhea Depression Diabetes Essential hypertension Goiter High cholesterol High cholesterol High serum luteinizing hormone (LH) History of myocardial infarction HTN (hypertension) Hyperlipidemia LDL goal <70 Normal echocardiogram Tobacco use disorder Type 2 diabetes mellitus with unspecified complications Family History Mother Alzheimer disease HTN (hypertension) Father Old age Brother Diabetes mellitus Maternal Grandmother Diabetes mellitus Heart disease Surgical History H/O cardiac catheterization History of appendectomy Hx of foot surgery Social History Household Members: Family and Friend(s) Household Members Other:: Roommate Housing: House Do you presently have visiting nurse or other home services: No Alcohol intake: former Year quit: 2019 Patient Tobacco Use Status: Former Tobacco user Quit Date: 12/2019 Tobacco use type: Cigarette Years Smoked: 35 +/- Second Hand Smoke Exposure: No Substance Use Type: Crack/Cocaine and Other Advance Directives: Yes Advance Directives on File: Yes Advance Directives Date on File: 11/30/20 service: No Current occupational status: unemployed and disabled Meds Allergies Allergy/AdvReac Type Severity Reaction Status Date / Time No Known Allergies Allergy Verified 02/28/21 14:37 [No Known Allergies*] Active Medications: Current Medications Pharmacy Consult (Consult Rx Perform Med Rec) 1 each MISCELLANE ONCE PRN PRN Reason: Consult order Home Medications Medication Instructions Recorded Confirmed Last Taken Type aripiprazole 15 mg tablet 15 mg PO DAILY 07/20/20 02/28/21 Unknown History bupropion HCl 300 mg 24 hr tablet, 300 mg PO DAILY 07/20/20 02/28/21 Unknown History extended release lancets 33 gauge #100 ea 07/20/20 02/28/21 Unknown History pen needle, diabetic 32 gauge x #50 ea 07/20/20 02/28/21 Unknown History trazodone 100 mg tablet 100 mg PO BEDTIME 07/20/20 02/28/21 Unknown History cholecalciferol (vitamin D3) 50 50 mcg PO QAM 11/03/20 02/28/21 Unknown History mcg (2,000 unit) capsule gabapentin 600 mg tablet 1 tab PO TID 11/09/20 02/28/21 Unknown History hydroxyzine pamoate 25 mg capsule 1 cap PO BEDTIME 11/09/20 02/28/21 Unknown History metformin 500 mg tablet,extended 2 tab PO BID 11/09/20 02/28/21 Unknown History release 24 hr nitroglycerin 0.3 mg sublingual 1 tab SUBLINGUAL USEASDIRECTD 11/09/20 02/28/21 Unknown History tablet prazosin 2 mg capsule 1 cap PO BEDTIME 11/09/20 02/28/21 Unknown History venlafaxine 75 mg capsule,extended 75 mg PO DAILY 11/09/20 02/28/21 Unknown History release 24 hr ezetimibe 10 mg tablet 10 mg PO DAILY 02/28/21 02/28/21 Unknown History Physical Exam Vital Signs and Narrative: Vital Signs: Last Vital Signs Temp 98.3 F 04/27/21 17:24 Pulse 88 04/27/21 22:15 Resp 17 04/27/21 22:15 BP 127/70 04/27/21 22:15 Pulse Ox 98 04/27/21 22:15 BMI result Body Mass Index 29.4 Const: General: cooperative and no acute distress Orientation/consciousness: patient oriented x3 Eyes: General: appearance normal, both eyes and all related structures Pupils: Equal, round and reactive pupils present Resp: Effort & Inspection: normal respiratory effort Auscultation: clear to auscultation bilaterally Cardio: Rate: regular rate Rhythm: regular rhythm GI: Palpation (GI): Soft to palpation Auscultation: normal bowel sounds Skin: General skin exam: no rashes or lesions noted Neuro: General: patient oriented x3 Cranial nerves: Yes Equal, round and reactive pupils present Cognition (Neuro): normal cognition Extrem: General: Yes normal to inspection and Yes no pedal edema Results Labs CBC and Chem 7: 04/27/21 17:17 04/27/21 17:17 Labs: Laboratory Results - last 24 hr 04/27/21 04/27/21 04/27/21 17:16 17:16 17:16 MCV MCH MCHC RDW Plt Count MPV Immature Gran % (Auto) Neut % (Auto) Lymph % (Auto) [place] % (Auto) Eos % (Auto) Baso % (Auto) Lymph # (Auto) [place] # (Auto) Eos # (Auto) Baso # (Auto) Abs Immat Gran (auto) Absolute Neuts (auto) Absolute Nucleated RBC Nucleated RBC % (auto) PT 11.3 INR 1.0 APTT 33.5 Anion Gap Estim Creat Clear Calc Estimated GFR POC Glucose Random Glucose Calcium Total Bilirubin AST ALT Alkaline Phosphatase Total Creatine Kinase B-Natriuretic Peptide < 10 Total Protein Albumin Ethyl Alcohol < 10 COVID-19 (DANIEL) COVID-19 Clin Com 03/12/0904/27/21 04/27/21 17:17 17:17 17:17 MCV 97.0 MCH 32.1 MCHC 33.1 RDW 13.2 Plt Count 215 MPV 11.0 Immature Gran % (Auto) 0.2 Neut % (Auto) 42.4 L Lymph % (Auto) 46.3 H [place] % (Auto) 7.0 Eos % (Auto) 2.6 Baso % (Auto) 1.5 Lymph # (Auto) 4.3 [place] # (Auto) 0.6 Eos # (Auto) 0.2 Baso # (Auto) 0.1 Abs Immat Gran (auto) 0.02 Absolute Neuts (auto) 3.9 Absolute Nucleated RBC 0.000 Nucleated RBC % (auto) 0.0 PT INR APTT Anion Gap 14 Estim Creat Clear Calc 77.8 Estimated GFR 58 POC Glucose Random Glucose 113 Calcium 9.3 Total Bilirubin 0.6 AST 21 ALT 25 Alkaline Phosphatase 106 Total Creatine Kinase 180 H B-Natriuretic Peptide Total Protein 7.0 Albumin 4.0 Ethyl Alcohol COVID-19 (DANIEL) Negative COVID-19 Clin Com See Note 04/27/21 17:25 MCV MCH MCHC RDW Plt Count MPV Immature Gran % (Auto) Neut % (Auto) Lymph % (Auto) [place] % (Auto) Eos % (Auto) Baso % (Auto) Lymph # (Auto) [place] # (Auto) Eos # (Auto) Baso # (Auto) Abs Immat Gran (auto) Absolute Neuts (auto) Absolute Nucleated RBC Nucleated RBC % (auto) PT INR APTT Anion Gap Estim Creat Clear Calc Estimated GFR POC Glucose 106 Random Glucose Calcium Total Bilirubin AST ALT Alkaline Phosphatase Total Creatine Kinase B-Natriuretic Peptide Total Protein Albumin Ethyl Alcohol COVID-19 (DANIEL) COVID-19 Clin Com Imaging Radiologist's Impressions: Impressions Head CT 04/27/21 17:30 IMPRESSION: No acute intracranial pathology. This critical result was discussed with Arya RAJAN at 5:48 PM on 04/27/2021 It was ascertained that the content and urgency of the report was understood at the time of direct communication. Head/Neck CTA 04/27/21 17:40 IMPRESSION: Unremarkable examination in that there is no stenosis of the cervical carotid or vertebral arteries. No intracranial large vessel occlusion. No evidence of acute territorial infarct or hemorrhage. No abnormal intracranial mass or enhancement. This critical result was discussed with Arya Roman BINGO MANAGER at 6:07 PM on 04/27/2021 and it was ascertained that the content and urgency of the report was understood at the time of direct communication. Chest X-Ray 04/27/21 17:54 IMPRESSION: Unremarkable examination. Assessment and Plan (1) LOC (loss of consciousness): Status: Acute (2) Altered mental status: Status: Acute (3) Right sided weakness: Status: Acute Plan 51-year-old male who presents to the hospital with episode of lethargy, altered mental status as well as loss of consciousness who presents to the hospital with concern for TIA versus seizure # LOC/altered mental status - seizure versus TIA - seizure most likely given his loss of bladder and bowel control as well as postictal state on arrival to the ED - CT head and CTA head and neck angiogram showed no significant abnormality - will admit, consult Neurology, obtain EEG # right-sided weakness - likely secondary to seizure versus TIA - no neurological deficits on my exam - will consult neurology # hypertension - stable - will continue home meds # diabetes - continue home insulin, add low-dose sliding scale insulin, diabetic diet all his other home medications will be continued once reconciled DVT prophylaxis: Lovenox Quality Stroke Does the patient have a stroke diagnosis?: No VTE Prior VTE?: No VTE Risk Level:: Medical - moderate - high VTE Device Contraindication: Treatment Not Indicated VTE Drug Contraindication: N/A - Med Ordered
[2021-04-28 01:01] VITALS: BP 137/89; PULSE 75; RESP 16; O2SAT 98
[2021-04-28 01:12] LABS: Appearance Urine CLEAR; Color Urine YELLOW; Glucose Urine UA NEG (NEG); Leukocyte Esterase Urine NEG (NEG); Nitrite Urine NEG (NEG); PH 5.5 (5.0-8.0); Specific Gravity - Urine 1.015 (1.005-1.025); Urine Blood NEG (NEG); Urine Ketones NEG (NEG); Urine Protein NEG (NEG-TRACE)
[2021-04-28] MEDS: Aspirin Enteric Coated 81 MG TABLET.DR PO ×2 (01:12→09:23)
[2021-04-28] MEDS: Enoxaparin Sodium 40 MG/0.4 ML SYRINGE SUBCUT (01:12)
[2021-04-28] MEDS: Atorvastatin Calcium 80 MG TABLET PO (01:13)
[2021-04-28 01:35] LABS: Amphetamine Screen Urine Not Detected (Not Detect); Barbiturates, Urine Not Detected (Not Detect); Benzodiazepines Screen Urine Not Detected (Not Detect); Cannabinoid Screen Urine Not Detected (Not Detect); Cocaine Screen Urine Not Detected (Not Detect); Fentanyl, urine Not Detected (Not Detect); Opiate Screen Urine Not Detected (Not Detect); Phencyclidine Screen Urine Not Detected (Not Detect)
[2021-04-28 06:29] VITALS: BP 139/81; PULSE 88; RESP 15; TEMP 36.8; O2SAT 98
[2021-04-28 06:51] LABS: Glucose, Whole Blood 83 mg/dL (60-115)
--- NOTE | 2021-04-28 07:00 | PC.NURSE ---
0630; Patient transferred to [facility] ed bed 2, patient is Polish speaking, alert and oriented x3, per coil taper. Denies pain or discomfort at this time, l/s clear, vss. Patient currently using his phone, appears comfortable. Offers no complaints at this time. Report given to day shift rn.
[2021-04-28 07:14] LABS: MANUAL DIFF FLAG NO
[2021-04-28 07:17] LABS: Basophils Absolute Auto 0.1 X10*3/uL (0.0-0.2); Basophils Percent Auto 1.4 % (0-2); Eosinophils Absolute Auto 0.2 X10*3/uL (0.0-0.4); Eosinophils Percent Auto 2.2 % (0-4); Hematocrit 38.6 % (42.0-52.0); Hemoglobin 13.1 g/dl (14.0-18.0); Imm Gran Abs Auto 0.02 X10*3/uL (0.00-0.03); Imm Gran Pct Auto 0.2 % (0.0-0.4); Lymphocytes Absolute Auto 3.7 X10*3/uL (1.2-4.9); Lymphocytes Percent Auto 40.5 % (20-40); Mean Corpuscular HGB Conc 33.9 g/dl (31.0-36.0); Mean Corpuscular Hemoglobin 32.7 pg (27.0-33.0); Mean Corpuscular Volume 96.3 fL (80.0-98.0); Mean Platelet Volume 10.9 fL (9.4-12.4); Monocytes Absolute Auto 0.7 X10*3/uL (0.1-1.2); Monocytes Percent Auto 7.3 % (2-11); Neutrophils Absolute Auto 4.4 x10*3/uL (2.0-8.3); Neutrophils Percent Auto 48.4 % (45-73); Platelet Count 213 X10*3/uL (160-400); Red Blood Count 4.01 X10*6/uL (4.60-5.80); White Blood Count 9.1 X10*3/uL (4.8-10.8)
--- NOTE | 2021-04-28 07:27 | PHA.MEDREC ---
Pharmacy Consult ? Medication Reconciliation Pharmacy has reviewed the medication reconciliation completed by Shekhar. Prazosin and venlafaxine were added to home medication list has patient has two different dose for each. Aripiprazole dose was enter as 15 mg but now takes 10 mg. Medication patient no longer takes have been removed from home med list. Libia Liriano, PharmD
[2021-04-28 08:02] LABS: Anion Gap 10 (12-20); Blood Urea Nitrogen 17 mg/dL (9-16); Calcium 9.3 mg/dL (8.4-10.2); Carbon Dioxide 27 mmol/L (22-29); Chloride 107 mmol/L (96-108); Creatinine Clr Calc Pharmacy 117.7; Estimated Glomerular Filt Rate > 60; Glucose Random 79 mg/dL (60-115); Potassium 3.9 mmol/L (3.3-5.1); Sodium 140 mmol/L (135-145)
[2021-04-28 08:42] VITALS: BP 134/55; PULSE 91; RESP 15; O2SAT 98
[2021-04-28] MEDS: levETIRAcetam in NaCl (iso-os) 500 MG/100 ML PIGGYBACK 400 MG IV (09:22)
[2021-04-28] MEDS: Nicotine 21 MG PATCH.TD24 TRANSDERMA (09:23)
[2021-04-28] MEDS: Venlafaxine HCl ER 150 MG CAP.ER.24H PO (09:23)
[2021-04-28] MEDS: lisinopriL 5 MG TABLET PO (09:23)
[2021-04-28] MEDS: Prazosin HCL 1 MG CAPSULE PO (09:23)
[2021-04-28] MEDS: Gabapentin 600 MG TABLET PO ×2 (09:23→15:42)
[2021-04-28] MEDS: Omeprazole 40 MG CAPSULE.DR PO (09:23)
[2021-04-28] MEDS: Ezetimibe 10 MG TABLET PO (09:23)
--- NOTE | 2021-04-28 10:52 | PC.NURSE ---
Pt medicated per APR, a/o manager training and development used for assessment and med administration. Neuros intact upon assessment. Pt on room air with no concerns and denies pain at this time. Pt resting in hospital bed. bilateral peripheral IVs intact and flushing properly. Callbell within reach and belongings close to the patient.
--- NOTE | 2021-04-28 11:03 | HO.PM.IMPN ---
Subjective Subjective Date of Service: 04/28/21 Interval History: the patient was seen and evaluated this morning Laying in bed, feels comfortable with no recurrent episodes of seizure No reported other overnight events. Systemic review: No fever, chills or weakness No chest pain, palpitation No shortness of breath or coughing No abdominal pain, nausea or vomiting No urinary symptoms No any rash or wounds Physical Exam Vital Signs: Vital Signs: Last Vital Signs Temp 98.3 F 04/28/21 06:29 Pulse 91 04/28/21 08:42 Resp 15 04/28/21 08:42 BP 134/55 L 04/28/21 08:42 Pulse Ox 98 04/28/21 08:42 BMI result Body Mass Index 29.4 Const: Other: Constitutional : Alert, oriented, not in distress Neck : Normal inspection, Supple Cardiovascular : RRR, S1 S2, no lower extremity edema Respiratory : Good bilateral air entry, no crackles, wheezes or rhonchi Gastrointestinal: soft, lax, Normal bowel sounds, Non tender Skin : Warm, Dry Neurological : Alert & oriented x3, No focal deficit Objective Data Active Medications Acetaminophen (Acetaminophen 325 Mg Tablet) 650 mg PO Q6H PRN PRN Reason: Pain, Mild (Pain Scale 1-3) Aripiprazole (Aripiprazole 10 Mg Tablet) 10 mg PO BEDTIME [facility] Aspirin (Aspirin Enteric Coated 81 Mg Tablet.) 81 mg PO DAILY [facility] Last Admin: 04/28/21 09:23 Dose: 81 mg Documented by: VICENTE Atorvastatin Calcium (Atorvastatin Calcium 80 Mg Tablet) 80 mg PO BEDTIME [facility] Bupropion HCl (Bupropion Hcl Xl 300 Mg Tab.Er.24h) 300 mg PO DAILY [facility] Last Admin: 04/28/21 09:30 Dose: Not Given Documented by: VICENTE Non-Admin Reason: Patient Refused Dextrose (Dextrose 50 % 25 Gm/50 Ml Vial) 25 gm IVPUSH Q15M PRN; Protocol PRN Reason: per Hypoglycemia Standing Ord. Docusate Sodium (Docusate Sodium 100 Mg Capsule) 100 mg PO DAILY PRN PRN Reason: Constipation Ezetimibe (Ezetimibe 10 Mg Tablet) 10 mg PO DAILY [facility] Last Admin: 04/28/21 09:23 Dose: 10 mg Documented by: VICENTE Enoxaparin Sodium (Enoxaparin Sodium 40 Mg/0.4 Ml Syringe) 40 mg SUBCUT Q24H [facility] Last Admin: 04/28/21 01:12 Dose: 40 mg Documented by: OLEKSANDR Gabapentin (Gabapentin 600 Mg Tablet) 600 mg PO TID [facility] Last Admin: 04/28/21 09:23 Dose: 600 mg Documented by: VICENTE Glucose (Glucose Gel 15 Gm Gel..Gram.) 15 gm PO Q15M PRN; Protocol PRN Reason: per Hypoglycemia Standing Ord. Hydroxyzine HCl (Hydroxyzine Hcl 25 Mg Tablet) 25 mg PO BEDTIME PRN PRN Reason: insomnia/anxiety Levetiracetam (Keppra) 500 mg in 100 mls @ 400 mls/hr IV Q12H [facility] Last Infusion: 04/28/21 09:37 Dose: 0 mls/hr Documented by: VICENTE Insulin Human Lispro (Insulin Lispro 100 Unit/Ml 3 Ml Vial) 0 unit SUBCUT QIDACHS [facility]; Protocol Last Admin: 04/28/21 07:17 Dose: Not Given Documented by: VICENTE Non-Admin Reason: No Insulin Coverage Lisinopril (Lisinopril 5 Mg Tablet) 5 mg PO DAILY [facility]; Protocol Last Admin: 04/28/21 09:23 Dose: 5 mg Documented by: VICENTE Nicotine (Nicotine 21 Mg Patch.Td24) 21 mg TRANSDERMA DAILY [facility] Last Admin: 04/28/21 09:23 Dose: 21 mg Documented by: VICENTE Omeprazole (Omeprazole 40 Mg Capsule.) 40 mg PO DAILY@0630 [facility] Last Admin: 04/28/21 09:23 Dose: 40 mg Documented by: VICENTE Ondansetron HCl (Ondansetron Hcl 4 Mg/2 Ml Vial) 4 mg IVPUSH Q8H PRN PRN Reason: Nausea and Vomiting Pharmacy Consult (Consult Rx Perform Med Rec) 1 each MISCELLANE ONCE PRN PRN Reason: Consult order Prazosin HCl (Prazosin Hcl 1 Mg Capsule) 1 mg PO DAILY [facility]; Protocol Last Admin: 04/28/21 09:23 Dose: 1 mg Documented by: VICENTE Prazosin HCl (Prazosin Hcl 1 Mg Capsule) 2 mg PO BEDTIME [facility]; Protocol Trazodone HCl (Trazodone Hcl 100 Mg Tablet) 100 mg PO BEDTIME [facility] Venlafaxine HCl (Venlafaxine Hcl Er 150 Mg Cap.Er.24h) 150 mg PO DAILY [facility] Last Admin: 04/28/21 09:23 Dose: 150 mg Documented by: VICENTE Venlafaxine HCl (Venlafaxine Hcl Er 75 Mg Cap.Er.24h) 75 mg PO DAILY [facility] Last Admin: 04/28/21 09:42 Dose: Not Given Documented by: VICENTE Non-Admin Reason: Med Not Available Labs CBC & Chem 7: 04/28/21 07:05 04/28/21 07:05 Labs: Laboratory Results - last 24 hr 04/27/21 04/27/21 04/27/21 17:16 17:16 17:16 MCV MCH MCHC RDW Plt Count MPV Immature Gran % (Auto) Neut % (Auto) Lymph % (Auto) [place] % (Auto) Eos % (Auto) Baso % (Auto) Lymph # (Auto) [place] # (Auto) Eos # (Auto) Baso # (Auto) Abs Immat Gran (auto) Absolute Neuts (auto) Absolute Nucleated RBC Nucleated RBC % (auto) PT 11.3 INR 1.0 APTT 33.5 Anion Gap Estim Creat Clear Calc Estimated GFR POC Glucose Random Glucose Calcium Total Bilirubin AST ALT Alkaline Phosphatase Total Creatine Kinase B-Natriuretic Peptide < 10 Total Protein Albumin Urine Color Urine Appearance Urine pH Ur Specific [place] Urine Protein Urine Glucose (UA) Urine Ketones Urine Blood Urine Nitrite Ur Leukocyte Esterase Urine Opiates Screen Urine Fentanyl Screen Ur Barbiturates Screen Ur Phencyclidine Scrn Ur Amphetamines Screen U Benzodiazepines Scrn Urine Cocaine Screen U Marijuana (THC) Screen Ethyl Alcohol < 10 COVID-19 ([facility]) COVID-19 Clin Com 04/27/21 04/27/21 04/27/21 17:17 17:17 17:17 MCV 97.0 MCH 32.1 MCHC 33.1 RDW 13.2 Plt Count 215 MPV 11.0 Immature Gran % (Auto) 0.2 Neut % (Auto) 42.4 L Lymph % (Auto) 46.3 H [place] % (Auto) 7.0 Eos % (Auto) 2.6 Baso % (Auto) 1.5 Lymph # (Auto) 4.3 [place] # (Auto) 0.6 Eos # (Auto) 0.2 Baso # (Auto) 0.1 Abs Immat Gran (auto) 0.02 Absolute Neuts (auto) 3.9 Absolute Nucleated RBC 0.000 Nucleated RBC % (auto) 0.0 PT INR APTT Anion Gap 14 Estim Creat Clear Calc 77.8 Estimated GFR 58 POC Glucose Random Glucose 113 Calcium 9.3 Total Bilirubin 0.6 AST 21 ALT 25 Alkaline Phosphatase 106 Total Creatine Kinase 180 H B-Natriuretic Peptide Total Protein 7.0 Albumin 4.0 Urine Color Urine Appearance Urine pH Ur Specific [place] Urine Protein Urine Glucose (UA) Urine Ketones Urine Blood Urine Nitrite Ur Leukocyte Esterase Urine Opiates Screen Urine Fentanyl Screen Ur Barbiturates Screen Ur Phencyclidine Scrn Ur Amphetamines Screen U Benzodiazepines Scrn Urine Cocaine Screen U Marijuana (THC) Screen Ethyl Alcohol COVID-19 ([facility]) Negative COVID-19 Clin Com See Note 04/27/21 04/28/21 04/28/21 17:25 01:04 01:04 MCV MCH MCHC RDW Plt Count MPV Immature Gran % (Auto) Neut % (Auto) Lymph % (Auto) [place] % (Auto) Eos % (Auto) Baso % (Auto) Lymph # (Auto) [place] # (Auto) Eos # (Auto) Baso # (Auto) Abs Immat Gran (auto) Absolute Neuts (auto) Absolute Nucleated RBC Nucleated RBC % (auto) PT INR APTT Anion Gap Estim Creat Clear Calc Estimated GFR POC Glucose 106 Random Glucose Calcium Total Bilirubin AST ALT Alkaline Phosphatase Total Creatine Kinase B-Natriuretic Peptide Total Protein Albumin Urine Color YELLOW Urine Appearance CLEAR Urine pH 5.5 Ur Specific [place] 1.015 Urine Protein NEG Urine Glucose (UA) NEG Urine Ketones NEG Urine Blood NEG Urine Nitrite NEG Ur Leukocyte Esterase NEG Urine Opiates Screen Not Detected Urine Fentanyl Screen Not Detected Ur Barbiturates Screen Not Detected Ur Phencyclidine Scrn Not Detected Ur Amphetamines Screen Not Detected U Benzodiazepines Scrn Not Detected Urine Cocaine Screen Not Detected U Marijuana (THC) Screen Not Detected Ethyl Alcohol COVID-19 ([facility]) COVID-19 Clin Com 04/28/21 04/28/21 04/28/21 06:45 07:05 07:05 MCV 96.3 MCH 32.7 MCHC 33.9 RDW 13.0 Plt Count 213 MPV 10.9 Immature Gran % (Auto) 0.2 Neut % (Auto) 48.4 Lymph % (Auto) 40.5 H [place] % (Auto) 7.3 Eos % (Auto) 2.2 Baso % (Auto) 1.4 Lymph # (Auto) 3.7 [place] # (Auto) 0.7 Eos # (Auto) 0.2 Baso # (Auto) 0.1 Abs Immat Gran (auto) 0.02 Absolute Neuts (auto) 4.4 Absolute Nucleated RBC 0.000 Nucleated RBC % (auto) 0.0 PT INR APTT Anion Gap 10 L Estim Creat Clear Calc 117.7 Estimated GFR > 60 POC Glucose 83 Random Glucose 79 Calcium 9.3 Total Bilirubin AST ALT Alkaline Phosphatase Total Creatine Kinase B-Natriuretic Peptide Total Protein Albumin Urine Color Urine Appearance Urine pH Ur Specific [place] Urine Protein Urine Glucose (UA) Urine Ketones Urine Blood Urine Nitrite Ur Leukocyte Esterase Urine Opiates Screen Urine Fentanyl Screen Ur Barbiturates Screen Ur Phencyclidine Scrn Ur Amphetamines Screen U Benzodiazepines Scrn Urine Cocaine Screen U Marijuana (THC) Screen Ethyl Alcohol COVID-19 (DANIEL) COVID-19 Clin Com Assessment and Plan (1) Altered mental status: Status: Acute (2) Seizure-like activity: Status: Acute Plan 51-year-old male who presents to the hospital with episode of lethargy, altered mental status as well as loss of consciousness who presents to the hospital with concern for TIA versus seizure # Altered mental status seizure versus vasovagal attack the described as postictal state on arrival to the ED, suggestive possible seizure CT head and CTA head and neck angiogram showed no significant abnormality started on Keppra Pending neurology evaluation To do EEG # history CVA, right-sided weakness continue aspirin, atorvastatin # hypertension continue home meds # diabetes continue home insulin low-dose sliding scale insulin, diabetic diet continue rest of his home medications DVT prophylaxis: Lovenox patient will need to Stay in the hospital pending neurology evaluation and EEG to make sure no further seizure attacks will happen. Quality Stroke Does the patient have a stroke diagnosis?: No VTE Prior VTE?: No VTE Risk Level:: Medical - moderate - high VTE Device Contraindication: Treatment Not Indicated VTE Drug Contraindication: N/A - Med Ordered
[2021-04-28 12:14] LABS: Glucose, Whole Blood 87 mg/dL (60-115)
[2021-04-28 12:47] VITALS: BP 107/70; PULSE 80; RESP 20
--- NOTE | 2021-04-28 14:23 | MHC.CM.PN ---
CM MET WITH PT WITH THE ASSISTANCE OF A [facility] AIDE PT REPORTS HE HAS BEEN LIVING IN HIS CAR FOR THE PAST MONTH HE REPORTS HE DID HAVE A ROUGH RICE TENDER BUT SHE WILL BE UNABLE TO ASSIST HIM UNTIL HE FINDS NEW HOUSING PT REPORTS HE HAS ALL OF THE MEDICAL SUPPLIES HE NEEDS INCLUDING A CANE WALKER AND DM SUPPLIES PT REPORTS HIS PCP IS VAN TAYLOR AND HE HAS A HCP ON FILE PT REPORT SHE RECEIVED THE J&J VACCINE AGAINST COVID-19 IN MAY OF 2020 IMM DELIVERED, COPY SENT TO MEDICAL RECORDS PT REPORTS HE IS NOT INTERESTED IN GOING TO A [id number] OR OTHER PLACEMENT HE REPORTS HE IS WORKING WITH HIS CM TO FIND HOUSING PT PLANS TO DC BACK TO HIS CAR AND CONTINUE WORKING WITH HIS CM FAMILY TO TRANSPORT
--- NOTE | 2021-04-28 15:47 | P.CNNE_ITS ---
History of Present Illness Data of Consult Service Date: 04/28/21 Primary Care Provider: Unknown Physician HPI Reason for consult: probable seizure 51-year-old male with history of diabetes, hypertension, hyperlipidemia, coronary artery disease, history of CVA who presents to the hospital with complaints of an episode of weakness lethargy and a transient episode where the patient was not answering his family for few minutes. He was recently diagnosed with seizure last week when he visited his family in [place].? He was scheduled to have an EEG but left the stating came back to [place].? He was scheduled for an outpatient EEG but he did not have a chance to have that done yet.? He had not been started on medications for this. ? Patient reports that he most likely had a seizure at home again.? He felt the same.? He was postictal when he arrived to the ED.? he had lost control of bladder and bowel during the episode. ? is usually incontinent of bowel at baseline. When he arrived to the ED.? He reports that? he also experienced substernal pressure-like chest pain right before the episode occurred.? ? On waking up he had right-sided weakness on the upper and lower extremity. ? No loss of speech, and no droopiness of the face. Review of Systems Review of Systems: Constitutional : No Weight loss, No Fever, No Chills, + Fatigue, + Malaise ENT/Mouth : No sore throat, No Rhinorrhea Eyes: No Eye Pain, No Swelling, No Redness Cardiovascular : + Chest Pain, No SOB, No Dyspnea on Exertion, No Orthopnea, No Edema, No Palpitations Respiratory : No Cough, No Sputum, No Wheezing Gastrointestinal : No Nausea, No Vomiting, No Diarrhea, No Constipation, No abdominal Pain, No Hematochezia, No Melena Genitourinary : No Dysuria, No Urinary Frequency, No Hematuria, Musculoskeletal : No joint pain, No Myalgias, No Joint Swelling Skin : No Skin Lesions, No rash Neuro : + Weakness, No Numbness, + Dizziness, No Headache Psych : No Anxiety/Panic, No Depression All other systems reviewed and are negative Yes all other systems are reviewed and are negative [facility] Past Medical History Medical History Anxiety Arthritis Chronic diarrhea Depression Diabetes Essential hypertension Goiter High cholesterol High cholesterol High serum luteinizing hormone (LH) History of myocardial infarction HTN (hypertension) Hyperlipidemia LDL goal <70 Normal echocardiogram Tobacco use disorder Type 2 diabetes mellitus with unspecified complications Family History Family History Mother Alzheimer disease HTN (hypertension) Father Old age Brother Diabetes mellitus Maternal Grandmother Diabetes mellitus Heart disease Surgical History Surgical History H/O cardiac catheterization History of appendectomy Hx of foot surgery Social History Social History Household Members: Family and Friend(s) Household Members Other:: Roommate Housing: House Do you presently have visiting nurse or other home services: No Alcohol intake: former Year quit: 2019 Patient Tobacco Use Status: Former Tobacco user Quit Date: 12/2019 Tobacco use type: Cigarette Years Smoked: 35 +/- Second Hand Smoke Exposure: No Substance Use Type: Crack/Cocaine and Other Advance Directives: Yes Advance Directives on File: Yes Advance Directives Date on File: 11/30/20 service: No Current occupational status: unemployed and disabled Meds Allergies Allergy/AdvReac Type Severity Reaction Status Date / Time No Known Allergies Allergy Verified 02/28/21 14:37 [No Known Allergies*] Active Medications: Current Medications Acetaminophen (Acetaminophen 325 Mg Tablet) 650 mg PO Q6H PRN PRN Reason: Pain, Mild (Pain Scale 1-3) Aripiprazole (Aripiprazole 10 Mg Tablet) 10 mg PO BEDTIME [facility] Aspirin (Aspirin Enteric Coated 81 Mg Tablet.) 81 mg PO DAILY [facility] Last Admin: 04/28/21 09:23 Dose: 81 mg Documented by: Atorvastatin Calcium (Atorvastatin Calcium 80 Mg Tablet) 80 mg PO BEDTIME [facility] Bupropion HCl (Bupropion Hcl Xl 300 Mg Tab.Er.24h) 300 mg PO DAILY [facility] Last Admin: 04/28/21 09:30 Dose: Not Given Documented by: Dextrose (Dextrose 50 % 25 Gm/50 Ml Vial) 25 gm IVPUSH Q15M PRN; Protocol PRN Reason: per Hypoglycemia Standing Ord. Docusate Sodium (Docusate Sodium 100 Mg Capsule) 100 mg PO DAILY PRN PRN Reason: Constipation Ezetimibe (Ezetimibe 10 Mg Tablet) 10 mg PO DAILY [facility] Last Admin: 04/28/21 09:23 Dose: 10 mg Documented by: Enoxaparin Sodium (Enoxaparin Sodium 40 Mg/0.4 Ml Syringe) 40 mg SUBCUT Q24H [facility] Last Admin: 04/28/21 01:12 Dose: 40 mg Documented by: Gabapentin (Gabapentin 600 Mg Tablet) 600 mg PO TID [facility] Last Admin: 04/28/21 15:42 Dose: 600 mg Documented by: Glucose (Glucose Gel 15 Gm Gel..Gram.) 15 gm PO Q15M PRN; Protocol PRN Reason: per Hypoglycemia Standing Ord. Hydroxyzine HCl (Hydroxyzine Hcl 25 Mg Tablet) 25 mg PO BEDTIME PRN PRN Reason: insomnia/anxiety Levetiracetam (Keppra) 500 mg in 100 mls @ 400 mls/hr IV Q12H [facility] Last Infusion: 04/28/21 09:37 Dose: Infused Documented by: Insulin Human Lispro (Insulin Lispro 100 Unit/Ml 3 Ml Vial) 0 unit SUBCUT QIDACHS [facility]; Protocol Last Admin: 04/28/21 12:12 Dose: Not Given Documented by: Lisinopril (Lisinopril 5 Mg Tablet) 5 mg PO DAILY [facility]; Protocol Last Admin: 04/28/21 09:23 Dose: 5 mg Documented by: Nicotine (Nicotine 21 Mg Patch.Td24) 21 mg TRANSDERMA DAILY [facility] Last Admin: 04/28/21 09:23 Dose: 21 mg Documented by: Omeprazole (Omeprazole 40 Mg Capsule.Dr) 40 mg PO DAILY@0630 [facility] Last Admin: 04/28/21 09:23 Dose: 40 mg Documented by: Ondansetron HCl (Ondansetron Hcl 4 Mg/2 Ml Vial) 4 mg IVPUSH Q8H PRN PRN Reason: Nausea and Vomiting Pharmacy Consult (Consult Rx Perform Med Rec) 1 each MISCELLANE ONCE PRN PRN Reason: Consult order Prazosin HCl (Prazosin Hcl 1 Mg Capsule) 1 mg PO DAILY [facility]; Protocol Last Admin: 04/28/21 09:23 Dose: 1 mg Documented by: Prazosin HCl (Prazosin Hcl 1 Mg Capsule) 2 mg PO BEDTIME [facility]; Protocol Trazodone HCl (Trazodone Hcl 100 Mg Tablet) 100 mg PO BEDTIME [facility] Venlafaxine HCl (Venlafaxine Hcl Er 150 Mg Cap.Er.24h) 150 mg PO DAILY [facility] Last Admin: 04/28/21 09:23 Dose: 150 mg Documented by: Venlafaxine HCl (Venlafaxine Hcl Er 75 Mg Cap.Er.24h) 75 mg PO DAILY [facility] Last Admin: 04/28/21 09:42 Dose: Not Given Documented by: Home Medications Medication Instructions Recorded Confirmed Last Taken Type bupropion HCl 300 mg 24 hr tablet, 300 mg PO DAILY 07/20/20 04/28/21 Unknown History extended release lancets 33 gauge #100 ea 07/20/20 04/28/21 Unknown History pen needle, diabetic 32 gauge x #50 ea 07/20/20 04/28/21 Unknown History trazodone 100 mg tablet 100 mg PO BEDTIME 07/20/20 04/28/21 Unknown History cholecalciferol (vitamin D3) 50 50 mcg PO QAM 11/03/20 04/28/21 Unknown History mcg (2,000 unit) capsule gabapentin 600 mg tablet 1 tab PO TID 11/09/20 04/28/21 Unknown History hydroxyzine pamoate 25 mg capsule 1 cap PO BEDTIME PRN 11/09/20 04/28/21 Unknown History metformin 500 mg tablet,extended 2 tab PO BID 11/09/20 04/28/21 Unknown History release 24 hr nitroglycerin 0.3 mg sublingual 1 tab SUBLINGUAL USEASDIRECTD 11/09/20 04/28/21 Unknown History tablet prazosin 2 mg capsule 1 cap PO BEDTIME 11/09/20 04/28/21 Unknown History venlafaxine 75 mg capsule,extended 75 mg PO DAILY 11/09/20 04/28/21 Unknown History release 24 hr ezetimibe 10 mg tablet 10 mg PO DAILY 02/28/21 04/28/21 Unknown History aripiprazole 10 mg tablet 1 tab PO QPM 04/28/21 04/28/21 Unknown History dulaglutide 3 mg/0.5 mL 3 mg SUBCUT QWEEK 04/28/21 04/28/21 Unknown History subcutaneous pen injector (Trulicity) omeprazole 40 mg capsule,delayed 1 cap PO QAM 04/28/21 04/28/21 Unknown History release prazosin 1 mg capsule 1 cap PO QAM 04/28/21 04/28/21 Unknown History venlafaxine 150 mg 1 cap PO QAM 04/28/21 04/28/21 Unknown History capsule,extended release 24 hr Physical Exam Vital Signs: Vital Signs: Last Vital Signs Temp 98.3 F 04/28/21 06:29 Pulse 80 04/28/21 12:47 Resp 20 04/28/21 12:47 BP 107/70 04/28/21 12:47 Pulse Ox 98 04/28/21 08:42 BMI result Body Mass Index 29.4 Const: Other: Constitutional : Alert, oriented, not in distress Neck : Normal inspection, Supple Cardiovascular : RRR, S1 S2, no lower extremity edema Respiratory : Good bilateral air entry, no crackles, wheezes or rhonchi Gastrointestinal: soft, lax, Normal bowel sounds, Non tender Skin : Warm, Dry Neurological : Alert & oriented x3, No focal deficit General: cooperative and no acute distress Orientation/consciousness: patient oriented x3 Eyes: General: appearance normal, both eyes and all related structures Pupils: Equal, round and reactive pupils present Resp: Effort & Inspection: normal respiratory effort Auscultation: clear to auscultation bilaterally Cardio: Rate: regular rate Rhythm: regular rhythm GI: Palpation (GI): Soft to palpation Auscultation: normal bowel sounds Skin: General skin exam: no rashes or lesions noted Neuro: Other: Normal neurological examination with no focal abnormalities General: patient oriented x3 Cranial nerves: Yes Equal, round and reactive pupils present Cognition (Neuro): normal cognition Extrem: General: Yes normal to inspection and Yes no pedal edema Results Labs CBC & Chem 7: 04/28/21 07:05 04/28/21 07:05 Labs: Short CBC 04/27/21 04/28/21 Range/Units 17:17 07:05 WBC 9.2 9.1 (4.8-10.8) X10*3/uL Hgb 13.0 L 13.1 L (14.0-18.0) g/dl Hct 39.3 L 38.6 L (42.0-52.0) % Plt Count 215 213 (160-400) X10*3/uL BMP 04/27/21 04/28/21 17:17 07:05 Sodium 143 140 Potassium 4.0 3.9 Chloride 109 H 107 Carbon Dioxide 24 27 BUN 18 H 17 H Creatinine 1.30 0.86 Calcium 9.3 9.3 Cardiac Enzymes 04/27/21 Range/Units 17:17 Total Creatine Kinase 180 H (38-174) U/L Liver Function 04/27/21 Range/Units 17:17 Total Bilirubin 0.6 (0.0-1.0) mg/dL AST 21 (5-37) U/L ALT 25 (0-40) U/L Alkaline Phosphatase 106 (39-117) U/L Albumin 4.0 (3.5-5.0) g/dL Urine 04/28/21 Range/Units 01:04 Urine Color YELLOW Urine Appearance CLEAR Urine pH 5.5 (5.0-8.0) Ur Specific [place] 1.015 (1.005-1.025) Urine Protein NEG (NEG-TRACE) MG/DL Urine Glucose (UA) NEG (NEG) MG/DL Assessment and Plan (1) Altered mental status: Status: Acute (2) Seizure-like activity: Status: Acute New-onset of seizures. Previous history of cerebrovascular disease and stroke. Recommendation continue Keppra 500 mg twice a day. His EEG that was done today is normaal. Plan 51-year-old male who presents to the hospital with episode of lethargy, altered mental status as well as loss of consciousness who presents to the hospital with concern for TIA versus seizure # Altered mental status seizure versus vasovagal attack the described as postictal state on arrival to the ED, suggestive possible seizure CT head and CTA head and neck angiogram showed no significant abnormality started on Keppra Pending neurology evaluation To do EEG # history CVA, right-sided weakness continue aspirin, atorvastatin # hypertension continue home meds # diabetes continue home insulin low-dose sliding scale insulin, diabetic diet continue rest of his home medications DVT prophylaxis: Lovenox patient will need to Stay in the hospital pending neurology evaluation and EEG to make sure no further seizure attacks will happen. Procedures Date of Service Date of Service: 04/28/21
--- NOTE | 2021-04-28 16:03 | P.DS_ITS ---
DS: Providers Provider Date of Service: 04/28/21 Date of admission: 04/27/21 23:26 Primary care physician: Unknown Physician Consults: 04/27/21 23:26 Consult to Neurology Routine Consulting Provider: [facility] Reason for consultation: seizure vs TIA Has provider been notified: No DS: Diagnosis Discharge Diagnosis (1) Altered mental status: Status: Acute (2) Seizure: Status: Acute DS: Summary Hospital Course Hospital Course: admission note HPI ?this is a Romanian-speaking 51-year-old male with past medical history of diabetes, hypertension, hyperlipidemia, coronary artery disease, history of CVA who presents to the hospital with complaints of an episode of weakness lethargy and a transient episode where the patient was not answering his family for few minutes. ? History is obtained from patient, he is alert and oriented x3.? Patient reports that he was recently diagnosed with seizure last week when he visited his family in [place].? He was scheduled to have an EEG but left the stating came back to [place].? He was scheduled for an outpatient EEG but he did not have a chance to have that done yet.? He had not been started on medications for this. ? Patient reports that he most likely had a seizure at home again.? He felt the same.? He was postictal when he arrived to the ED.? he had lost control of bladder and bowel during the episode. ? is usually incontinent of bowel at baseline. When he arrived to the ED.? He reports that? he also experienced substernal pressure-like chest pain right before the episode occurred.? ? On waking up he had right-sided weakness on the upper and lower extremity. ? No loss of speech, and no droopiness of the face. ? Per ED PA, on arrival patient was postictal, he had right-sided weakness, a stroke protocol was done, head CT showed no acute intracranial pathology.? Head and neck CT angiogram showed unremarkable examination in that there is no stenosis of the cervical carotid or vertebral arteries.? No intracranial large vessel occlusion. ? Patient's labs are also reviewed and are unremarkable.? troponin negative, EKG shows possible anterior infarct cited in previous EKG with no? significant ST T- wave changes suggestive of ACS Hospital course The patient was admitted to the hospital for evaluation of altered mentation and loss consciousness with concern of seizure attack. He was monitored overnight with no recurrence of the symptoms. Started on IV Keppra as EEG was done showing no abnormal waves per Neurology team who evaluated the patient and recommended to discharge him home on Keppra 500 mg twice daily. To follow-up with Neurology in the clinic. Time Spent with Patient Time attestation: Total time spent providing and/or coordinating discharge services: Discharge coordination time: Greater than 30 minutes Quality: Stroke Does the patient have a stroke diagnosis?: No Physical Exam Vital Signs: Vital Signs: Last Vital Signs Temp 98.3 F 04/28/21 06:29 Pulse 80 04/28/21 12:47 Resp 20 04/28/21 12:47 BP 107/70 04/28/21 12:47 Pulse Ox 98 04/28/21 08:42 BMI result Body Mass Index 29.4 Const: Other: Constitutional : Alert, oriented, not in distress Neck : Normal inspection, Supple Cardiovascular : RRR, S1 S2, no lower extremity edema Respiratory : Good bilateral air entry, no crackles, wheezes or rhonchi Gastrointestinal: soft, lax, Normal bowel sounds, Non tender Skin : Warm, Dry Neurological : Alert & oriented x3, No focal deficit DS: Data Data Completed and Pending Completed studies during hospitalization [Text1]: Procedures Drainage of Left Elbow Bursa and Ligament, Percutaneous Approach, Diagnostic (11/09/20) Excision of Duodenum, Via Natural or Artificial Opening Endoscopic, Diagnostic (11/23/20) Excision of Stomach, Pylorus, Via Natural or Artificial Opening Endoscopic, Diagnostic (11/23/20) Insertion of Infusion Device into Superior Vena Cava, Percutaneous Approach (11/09/20) Introduction of Other Thrombolytic into Peripheral Vein, Percutaneous Approach (09/26/20) Labs on day of discharge: Laboratory Results - last 24 hr 04/27/21 04/27/21 04/27/21 17:16 17:16 17:16 WBC RBC Hgb Hct MCV MCH MCHC RDW Plt Count MPV Immature Gran % (Auto) Neut % (Auto) Lymph % (Auto) [place] % (Auto) Eos % (Auto) Baso % (Auto) Lymph # (Auto) [place] # (Auto) Eos # (Auto) Baso # (Auto) Abs Immat Gran (auto) Absolute Neuts (auto) Absolute Nucleated RBC Nucleated RBC % (auto) PT 11.3 INR 1.0 APTT 33.5 Sodium Potassium Chloride Carbon Dioxide Anion Gap BUN Creatinine Estim Creat Clear Calc Estimated GFR POC Glucose Random Glucose Calcium Total Bilirubin AST ALT Alkaline Phosphatase Total Creatine Kinase Troponin I High Sens < 3.5 B-Natriuretic Peptide < 10 Total Protein Albumin Urine Color Urine Appearance Urine pH Ur Specific [place] Urine Protein Urine Glucose (UA) Urine Ketones Urine Blood Urine Nitrite Ur Leukocyte Esterase Urine Opiates Screen Urine Fentanyl Screen Ur Barbiturates Screen Ur Phencyclidine Scrn Ur Amphetamines Screen U Benzodiazepines Scrn Urine Cocaine Screen U Marijuana (THC) Screen Ethyl Alcohol < 10 COVID-19 (DANIEL) COVID-19 Clin Com 04/27/21 04/27/21 04/27/21 17:17 17:17 17:17 WBC 9.2 RBC 4.05 L Hgb 13.0 L Hct 39.3 L MCV 97.0 MCH 32.1 MCHC 33.1 RDW 13.2 Plt Count 215 MPV 11.0 Immature Gran % (Auto) 0.2 Neut % (Auto) 42.4 L Lymph % (Auto) 46.3 H [place] % (Auto) 7.0 Eos % (Auto) 2.6 Baso % (Auto) 1.5 Lymph # (Auto) 4.3 [place] # (Auto) 0.6 Eos # (Auto) 0.2 Baso # (Auto) 0.1 Abs Immat Gran (auto) 0.02 Absolute Neuts (auto) 3.9 Absolute Nucleated RBC 0.000 Nucleated RBC % (auto) 0.0 PT INR APTT Sodium 143 Potassium 4.0 Chloride 109 H Carbon Dioxide 24 Anion Gap 14 BUN 18 H Creatinine 1.30 Estim Creat Clear Calc 77.8 Estimated GFR 58 POC Glucose Random Glucose 113 Calcium 9.3 Total Bilirubin 0.6 AST 21 ALT 25 Alkaline Phosphatase 106 Total Creatine Kinase 180 H Troponin I High Sens B-Natriuretic Peptide Total Protein 7.0 Albumin 4.0 Urine Color Urine Appearance Urine pH Ur Specific [place] Urine Protein Urine Glucose (UA) Urine Ketones Urine Blood Urine Nitrite Ur Leukocyte Esterase Urine Opiates Screen Urine Fentanyl Screen Ur Barbiturates Screen Ur Phencyclidine Scrn Ur Amphetamines Screen U Benzodiazepines Scrn Urine Cocaine Screen U Marijuana (THC) Screen Ethyl Alcohol COVID-19 (DANIEL) Negative COVID-19 Clin Com See Note 04/27/21 04/28/21 04/28/21 17:25 01:04 01:04 WBC RBC Hgb Hct MCV MCH MCHC RDW Plt Count MPV Immature Gran % (Auto) Neut % (Auto) Lymph % (Auto) [place] % (Auto) Eos % (Auto) Baso % (Auto) Lymph # (Auto) [place] # (Auto) Eos # (Auto) Baso # (Auto) Abs Immat Gran (auto) Absolute Neuts (auto) Absolute Nucleated RBC Nucleated RBC % (auto) PT INR APTT Sodium Potassium Chloride Carbon Dioxide Anion Gap BUN Creatinine Estim Creat Clear Calc Estimated GFR POC Glucose 106 Random Glucose Calcium Total Bilirubin AST ALT Alkaline Phosphatase Total Creatine Kinase Troponin I High Sens B-Natriuretic Peptide Total Protein Albumin Urine Color YELLOW Urine Appearance CLEAR Urine pH 5.5 Ur Specific [place] 1.015 Urine Protein NEG Urine Glucose (UA) NEG Urine Ketones NEG Urine Blood NEG Urine Nitrite NEG Ur Leukocyte Esterase NEG Urine Opiates Screen Not Detected Urine Fentanyl Screen Not Detected Ur Barbiturates Screen Not Detected Ur Phencyclidine Scrn Not Detected Ur Amphetamines Screen Not Detected U Benzodiazepines Scrn Not Detected Urine Cocaine Screen Not Detected U Marijuana (THC) Screen Not Detected Ethyl Alcohol COVID-19 (DANIEL) COVID-19 Clin Com 04/28/21 04/28/21 04/28/21 06:45 07:05 07:05 WBC 9.1 RBC 4.01 L Hgb 13.1 L Hct 38.6 L MCV 96.3 MCH 32.7 MCHC 33.9 RDW 13.0 Plt Count 213 MPV 10.9 Immature Gran % (Auto) 0.2 Neut % (Auto) 48.4 Lymph % (Auto) 40.5 H [place] % (Auto) 7.3 Eos % (Auto) 2.2 Baso % (Auto) 1.4 Lymph # (Auto) 3.7 [place] # (Auto) 0.7 Eos # (Auto) 0.2 Baso # (Auto) 0.1 Abs Immat Gran (auto) 0.02 Absolute Neuts (auto) 4.4 Absolute Nucleated RBC 0.000 Nucleated RBC % (auto) 0.0 PT INR APTT Sodium 140 Potassium 3.9 Chloride 107 Carbon Dioxide 27 Anion Gap 10 L BUN 17 H Creatinine 0.86 Estim Creat Clear Calc 117.7 Estimated GFR > 60 POC Glucose 83 Random Glucose 79 Calcium 9.3 Total Bilirubin AST ALT Alkaline Phosphatase Total Creatine Kinase Troponin I High Sens B-Natriuretic Peptide Total Protein Albumin Urine Color Urine Appearance Urine pH Ur Specific [place] Urine Protein Urine Glucose (UA) Urine Ketones Urine Blood Urine Nitrite Ur Leukocyte Esterase Urine Opiates Screen Urine Fentanyl Screen Ur Barbiturates Screen Ur Phencyclidine Scrn Ur Amphetamines Screen U Benzodiazepines Scrn Urine Cocaine Screen U Marijuana (THC) Screen Ethyl Alcohol COVID-19 (DANIEL) COVID-19 Fwd: Power Com 04/28/21 12:09 WBC RBC Hgb Hct MCV MCH MCHC RDW Plt Count MPV Immature Gran % (Auto) Neut % (Auto) Lymph % (Auto) [place] % (Auto) Eos % (Auto) Baso % (Auto) Lymph # (Auto) [place] # (Auto) Eos # (Auto) Baso # (Auto) Abs Immat Gran (auto) Absolute Neuts (auto) Absolute Nucleated RBC Nucleated RBC % (auto) PT INR APTT Sodium Potassium Chloride Carbon Dioxide Anion Gap BUN Creatinine Estim Creat Clear Calc Estimated GFR POC Glucose 87 Random Glucose Calcium Total Bilirubin AST ALT Alkaline Phosphatase Total Creatine Kinase Troponin I High Sens B-Natriuretic Peptide Total Protein Albumin Urine Color Urine Appearance Urine pH Ur Specific [place] Urine Protein Urine Glucose (UA) Urine Ketones Urine Blood Urine Nitrite Ur Leukocyte Esterase Urine Opiates Screen Urine Fentanyl Screen Ur Barbiturates Screen Ur Phencyclidine Scrn Ur Amphetamines Screen U Benzodiazepines Scrn Urine Cocaine Screen U Marijuana (THC) Screen Ethyl Alcohol COVID-19 (DANIEL) COVID-19 Clin Com Discharge Plan Discharge Patient Disposition: Home, Self-Care Discharge Diagnosis: Seizure Referrals: Physician,Unknown J [Primary Care Provider] - 1 Week Discharge Medications: New levetiracetam 500 mg tablet 500 mg PO Q12H Qty: 60 2RF Continued insulin degludec 100 unit/mL (3 mL) insulin pen 40 unit subcut QPM 30 Days Qty: 30 1RF insulin aspart U-100 [Novolog Flexpen U-100 Insulin] 100 unit/mL (3 mL) insulin pen 15 unit subcut TID Qty: 15 4RF aspirin 81 mg tablet,delayed release (DR/EC) 81 mg PO DAILY Qty: 90 0RF atorvastatin [Lipitor] 80 mg tablet 80 mg PO BEDTIME Qty: 30 0RF gabapentin 600 mg tablet 1 tab PO TID 0RF nitroglycerin 0.3 mg tablet, sublingual 1 tab sublingual USEASDIRECTD 0RF Rx Instructions: Dissolve 1 tablet under the tongue. May repeat after 5 minutes one time metformin 500 mg tablet extended release 24 hr 2 tab PO BID 0RF hydroxyzine pamoate 25 mg capsule 1 cap PO BEDTIME PRN (Reason: insomnia/anxiety) 0RF venlafaxine 75 mg Capsule,Extended Release 24hr 75 mg PO DAILY 0RF Rx Instructions: Take with 150 mg tablet prazosin 2 mg capsule 1 cap PO BEDTIME 0RF nicotine 21 mg/24 hr Patch 24 Hour 21 mg transdermal DAILY Qty: 28 0RF lisinopril 5 mg tablet 5 mg PO DAILY Qty: 30 0RF prazosin 1 mg capsule 1 cap PO QAM 0RF venlafaxine 150 mg capsule,extended release 24hr 1 cap PO QAM 0RF omeprazole 40 mg capsule,delayed release(DR/EC) 1 cap PO QAM 0RF aripiprazole 10 mg tablet 1 tab PO QPM 0RF Trulicity 3 mg/0.5 mL pen injector 3 mg subcut QWEEK 0RF bupropion HCl 300 mg tablet extended release 24 hr 300 mg PO DAILY 0RF trazodone 100 mg tablet 100 mg PO BEDTIME 0RF (DME) pen needle, diabetic 32 gauge x needle See Rx Instructions ea .ROUTE .MEDSUPPLY Qty: 50 0RF Rx Instructions: As directed (DME) lancets 33 gauge misc See Rx Instructions ea Not Applicable BID Qty: 100 0RF Rx Instructions: As directed (DME) FreeStyle Lite Strips Strip See Rx Instructions .ROUTE .MEDSUPPLY Qty: 150 11RF Rx Instructions: As directed four times a day (DME) lancets [TRUEplus Lancets] 33 gauge misc See Rx Instructions .ROUTE .MEDSUPPLY Qty: 200 11RF Rx Instructions: 4 x/day cholecalciferol (vitamin D3) 50 mcg (2,000 unit) capsule 50 mcg PO QAM 0RF ezetimibe 10 mg tablet 10 mg PO DAILY 0RF Discharge Orders: Discharge Order (Routine); Ordered 04/28/21 Ordered By: Brittany Blackburn Diet: advance to usual diet Activity on Discharge: As tolerated Stand Alone Forms: Patient Portal Discharge page Care Plan Goals: Read below Health Concerns: Read below Plan of Treatment: Read below Assessment: you were admitted to the hospital for evaluation of altered consciousness and abnormal movement. You were diagnosed with seizure disorder and evaluated by neurologist. Started on seizure medication. Take Keppra 500 mg twice Daily To follow-up with Neurology office as outpatient
== END 2021-04-28 16:35 | disposition home or self-care (01) ==
LOC: HO.ED 23:09 → HO.EDOVER 04-28 02:08
PROVIDERS: Physician Assistant; Admitting Provider Internal Medicine; Emergency Provider Emergency Medicine Emergency Medical Services; PCP Family Medicine; Visit Provider Student in an Organized Health Care Education/Training Program
DX: R53.1 Weakness (principal); R41.82 Altered mental status, unspecified; R56.9 Unspecified convulsions; R07.9 Chest pain, unspecified; R53.83 Other fatigue; K52.9 Noninfective gastroenteritis and colitis, unspecified; E11.9 Type 2 diabetes mellitus without complications; I10 Essential (primary) hypertension; E78.00 Pure hypercholesterolemia, unspecified; E78.5 Hyperlipidemia, unspecified; I25.10 Atherosclerotic heart disease of native coronary artery without angina pectoris; F41.8 Other specified anxiety disorders; F14.20 Cocaine dependence, uncomplicated; Z72.0 Tobacco use; Z20.822 Contact with and (suspected) exposure to COVID-19; Z86.73 Personal history of transient ischemic attack (TIA), and cerebral infarction without residual deficits; Z98.890 Other specified postprocedural states; Z79.82 Long term (current) use of aspirin; Z79.4 Long term (current) use of insulin; Z79.899 Other long term (current) drug therapy
CPT/HCPCS: 36415; 51798; 70450; 70496; 70498; 71045; 80048; 80053; 80307; 81003; 82077; 82550; 82947; 83880; 84484; 85025; 85610; 85730; 87635; 93005; 95816; 96361; 96372; 96374; 96375; 99219; 99285; J1650; J1953; Q9967

== ENCOUNTER → 2021-06-08 09:39 | Outpatient (BNVA) | payer OTHER, SELFPAY | PROVIDERS: PCP Family Medicine; Visit Provider Physician Assistant | DX: Z13.89 Encounter for screening for other disorder (principal) ==

== ENCOUNTER 2024-09-28 12:47 | Outpatient (AMB) | payer OTHER, MEDICAID, SELFPAY ==
--- OUTSIDE RECORDS SUMMARY | 2024-09-28 12:00 | XMS_ITS | Encounter Summary ---
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 Name Role Phone Ramone Miller MD Primary Care Provider Reason for Referral * Therapy (Routine) - Pending Review Specialty Diagnoses / Procedures Referred By Sundeep batista Referred To Contact Pulmonology Diagnoses Chronic obstructive pulmonary disease, unspecified COPD type (CMS/HCC V24, CMS/HCC V28) Procedures Pulmonary function testing: Nitrogen Wash Out, Spirometry with Bronchodilator, Carbon Monoxide Diffusing Capacity Ramone Miller MD [address] [place] [phone] Phone: tel: fax: [facility] [address] [place] [address] Phone: tel: Referral ID Status Reason Start Date Expiration Date V isits Requested Visits Authorized [id number] Pending Review 09/28/2024 09/28/2025 1 1 * Consultation (Routine) - Authorized Specialty Diagnoses / Procedures Referred By Sundeep batista Referred To Contact Thoracic Surgery Diagnoses Encounter for screening for malignant neoplasm of lung in current smoker with 20 pack year history or greater Ramone Miller MD [address] [place] [id number] Phone: tel: fax: Lung Screening Program - [address] [address] Phone: tel: fax: Referral ID Status Reason Start Date Expiration Date Visits Requested Visits Authorized [id number] Authorized Specialty Services Required 09/28/2024 09/28/2025 1 1 * Consultation (Routine) - Pending Review Specialty Diagnoses / Procedures Referred By Sundeep t Referred To Contact Gastroenterology Diagnoses Encounter for screening for malignant neoplasm of colon Ramone Miller MD [address] [place] [address] Phone: tel: fax: Referral ID Status Reason Start Date Expiration Date Visits Requested Visits Authorized [id number] Pending Review Specialty Services Required 09/28/2024 09/28/2025 1 1 Reason for Visit * Reason Comments Diabetes Follow up Encounter Details Date Type Department Care Team (Late st Contact Info) Description 09/28/2024 12:00 PM EDT Office Visit Adult Medicine [facility] [address] [place] [address] Ramone Miller MD [address] [place] [address] Uncontrolled type 2 diabetes mellitus with hyperglycemia (CMS/HCC V24, CMS/HCC V28) (Primary Dx); Presence of cardiac pacemaker for complete atrioventricular block (CMS/HCC V24, CMS/HCC V28); Chronic obstructive pulmonary disease, unspecified COPD type (CMS/HCC V24, CMS/HCC V28); Moderate persistent asthma without complication; Encounter for screening for malignant neoplasm of lung in current smoker with 20 pack year history or greater; Encounter for screening for malignant neoplasm of colon; Tobacco dependency; Need for hepatitis B screening test; Encounter for screening for HIV; Need for vaccination against Streptococcus pneumoniae Social History Tobacco Use Types Packs/Day Years Used Date Smoking Tobacco: Every Day Cigarettes Passive Smoke Exposure: Never Smokeless Tobacco: Never Tobacco Cessation:Ready to Q uit: Not Asked; Counseling Given: Not Answered Housing Instability Answer Date Recorde d Are you worried that in the next 2 months you may not have stable housing? No 09/02/2024 Food Access & Nutrition Answer Date Rec orded Do you have access to a vari ety of food including fruits and vegetables? Yes 09/02/2024 Access to Healthcare Answer Date Record ed Within the last 3 months, ho w many times did you visit the emergency department for your medical care? 0 09/02/2024 Health Literacy Answer Date Recorded How often do you need to hav e someone help you when you read instructions, pamphlets, or other written material from your doctor or pharmacy? Never 09/02/2024 Caregiver: How often do you need to have someone help you when you read instructions, pamphlets, or other written material from your doctor or pharmacy? Not on file 09/02/2024 Financial Risk Answer Date Recorded How hard is it for you to pa y for the very basics like food, housing, medical care, and air conditioning / heating? Not very hard 09/02/2024 Transportation Answer Date Recorded Has the lack of transportati on kept you from meetings, work, or from getting things needed for daily living? No Has the lack of transportati on kept you from medical appointments or from getting medications? No 09/02/2024 Social Isolation Answer Date Recorded How often do you feel lonely or isolated from th ose around you? Never 09/02/2024 Food Risk Answer Date Recorded Within the past 12 months we worried whether our food would run out before we got money to buy more. Never true 09/02/2024 Within the past 12 months th e food we bought just didn't last and we didn't have money to get more. Never true 09/02/2024 Dependent Care Answer Date Recorded Do you need help finding or paying for care for your loved ones. For example, child watch attendant or elderly care for an older adult? No 09/02/2024 Education Answer Date Recorded Do you think completing more education or training, like finishing a GED, going to college, or learning a trade, would be helpful for you? No 09/02/2024 Employment and Income Answer Date Recor ded During the last four weeks, have you been actively looking for work? No 09/02/2024 Living Situation Answer Date Recorded What is your living situation? 0 09/02/2024 Sex and Gender Information Value Date Recorded Sex Assigned at Not on file Legal Sex Male 6:12 PM EST Gender Identity Not on file Sexual Orientation Not on file documented as of this encounter Last Filed Vital Signs Vital Sign Reading Time Taken Comments Blood Pressure 117/75 09/28/2024 11:30 AM EDT Pulse 81 09/28/2024 11:30 AM EDT Temperature 36.7 C (98.1 F) 09/28/2024 11:30 AM EDT Respiratory Rate 15 09/28/2024 11:30 AM EDT Oxygen Saturation 98% 09/28/2024 11:30 AM EDT Inhaled Oxygen Concentration - - Weight 86.8 kg (191 lb 6.4 oz) 09/28/2024 11:30 AM EDT Height 177.8 cm (5' 10 ) 09/28/2024 11:30 AM EDT Body Mass Index 27.46 09/28/2024 11:30 AM EDT documented in this encounter Ordered Prescriptions Prescription Sig Dispense Quantity Refills Last Filled Start Date End Date FreeStyle Erick 2 Ribera misc To monitor blood sugar continuously 1 each 3 09/28/2024 varenicline tartrate (CHANTIX ROSALINDA) 0.5 mg (11)- 1 mg (42) tablet Take 0.5 mg by mouth 1 (one) time each day for 3 days (days 1-3), THEN 0.5 mg 2 (two) times a day for 4 days (days 4-7), THEN 1 mg 2 (two) times a day for 12 weeks. 53 tablet 1 09/28/2024 magnesium oxide (MAG-OX) 400 mg magnesium tablet Take 1 tablet (400 mg total) by mouth 3 (three) times a day. 90 tablet 1 09/28/2024 documented in this encounter Progress Notes * Ramone Miller MD - 09/28/2024 12:00 PM EDT Quitting Smoking Quitting smoking is the most important step you can take to improve your health. We're glad you have set a goal to improve your health. Quit Smoking Resources In addition to medications, use the STAR plan to help you successfully quit. Stick with your quit date! Tell friends, family, and coworkers your quit date. Request their understanding and support. Anticipate and prepare for challenges. Some examples are withdrawal symptoms, being around others who smoke, and drinking alcohol. Remove all tobacco products and paraphernalia from your environment. Make your home and vehicles smoke-free. Free resources for additional support: National tobacco quitline: NOW ( ). SmokefreeTXT is a free text program to assist you in quitting. Visit https://www.smokefree.gov/smokefreetxt for more information. * Ramone Miller MD - 09/28/2024 12:00 PM EDT SUBJECTIVE: Doc Quiñones is a 54 y.o. male who presents today for Chief Complaint Patient presents with Diabetes Follow up HPI: Patient presented for follow-up. 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 He told me that he was not given insulin Lantus by the pharmacy. I called the pharmacy during the office visit and the pharmacist could not give me a reason why this was not given to the patient. He says he will provide a prescription for pickup now. Current Meds: Current Outpatient Medications: amLODIPine (NORVASC) 10 mg tablet, Take 1 tablet (10 mg total) by mouth 1 (one) time each day., Disp: 90 each, Rfl: 0 ARIPiprazole (ABILIFY) 5 mg tablet, Take 1 tablet (5 mg total) by mouth 1 (one) time each day., Disp: 90 each, Rfl: 0 aspirin 81 mg EC tablet, Take 1 tablet (81 mg total) by mouth 1 (one) time each day., Disp: 90 each, Rfl: 0 atorvastatin (LIPITOR) 80 mg tablet, Take 1 tablet (80 mg total) by mouth 1 (one) time each day., Disp: 90 each, Rfl: 0 ezetimibe (ZETIA) 10 mg tablet, Take 1 tablet (10 mg total) by mouth 1 (one) time each day., Disp: 90 each, Rfl: 0 fluticasone furoate-vilanteroL (BREO ELLIPTA) 200-25 mcg/dose inhaler, Inhale 1 puff by mouth 1 (one) time each day., Disp: 1 each, Rfl: 3 FreeStyle Erick 2 Ribera [facility] [place], See administration instructions., Disp: , Rfl: FreeStyle Erick 2 Sensor kit, To monitor blood sugar, Disp: 1 EA, Rfl: 1 hydrOXYzine HCL (ATARAX) 25 mg tablet, Take 1 tablet (25 mg total) by mouth every 8 (eight) hours if needed for itching., Disp: 270 each, Rfl: 0 insulin glargine (LANTUS SoloStar) 100 unit/mL (3 mL) injection pen, Inject 35 Units under the skinat bedtime., Disp: 15 mL, Rfl: 5 insulin lispro (HumaLOG KwikPen) 100 unit/mL injection pen, Inject 5 Units under the skin 3 (three)times a day before meals., Disp: , Rfl: levETIRAcetam (KEPPRA) 750 mg tablet, Take 1 tablet (750 mg total) by mouth 2 (two) times a day., Disp: 180 each, Rfl: 0 losartan (COZAAR) 25 mg tablet, Take 1 tablet (25 mg total) by mouth 1 (one) time each day., Disp: 90 each, Rfl: 0 magnesium oxide (MAG-OX) 400 mg magnesium tablet, Take 1 tablet (400 mg total) by mouth 3 (three) times a day., Disp: 90 tablet, Rfl: 1 metFORMIN (GLUCOPHAGE) 850 mg tablet, Take 1 tablet (850 mg total) by mouth 2 (two) times a day with meals., Disp: 180 each, Rfl: 1 omeprazole (PriLOSEC) [address] capsule, Take 1 capsule (40 mg total) by mouth 1 (one) time each dayin the morning., Disp: 90 capsule, Rfl: 0 varenicline tartrate (CHANTIX ROSALINDA) 0.5 mg (11)- 1 mg (42) tablet, Take 0.5 mg by mouth 1 (one) timeeach day for 3 days (days 1-3), THEN 0.5 mg 2 (two) times a day for 4 days (days 4-7), THEN 1 mg 2 (two) times a day for 12 weeks., Disp: 53 tablet, Rfl: 1 Allergies: No Known Allergies Immunizations: Immunization History Administered Date(s) Administered Pneumococcal conjugate 20 valent (Prevnar 20, PCV 20) 2mo and older 09/28/2024 Active Problems: Patient Active Problem List Diagnosis Abnormal CT scan TJ (acute kidney injury) ([place] [id number]) Ambulatory dysfunction Anxiety Asthma Atherosclerosis of [place] coronary artery of [place] heart with angina pectoris ([facility] [place]24) Abdominal pain Chest pain Chronic obstructive pulmonary disease ([facility] V24, [facility] V28) Closed fracture of triquetrum of right wrist Presence of cardiac pacemaker for complete atrioventricular block ([facility] V24, [facility] V28) Depression Essential hypertension Foot ulcer ([facility] V24, [facility] V28) Gastroesophageal reflux disease without esophagitis High degree atrioventricular block Homeless Intermittent palpitations Lyme disease Mixed hyperlipidemia Obstructive sleep apnea Nicotine dependence Peripheral neuropathy Right wrist injury Right wrist pain Seizure disorder ([facility] V24, [facility] V28) Shortness of breath Stroke-like symptoms Syncope TIA (transient ischemic attack) Uncontrolled type 2 diabetes mellitus with hyperglycemia ([facility] V24, [facility] V28) HISTORY: Past Medical History: Diagnosis Date Anxiety Depression Diabetes mellitus ([facility] V24, [facility] V28) Hyperlipidemia Hypertension Pacemaker Seizures ([facility] V24, [facility] V28) No past surgical history on file. No family history on file. Social History Socioeconomic History Marital status: Spouse name: Not on file Number of children: Not on file Years of education: Not on file Highest education level: Not on file Occupational History Not on file Tobacco Use Smoking status: Every Day Types: Cigarettes Passive exposure: Never Smokeless tobacco: Never Substance and Sexual Activity Alcohol use: Not on file Drug use: Not on file Sexual activity: Not on file Other Topics Concern Not on file Social History Narrative Not on file ROS: GENERAL: Negative for malaise, significant weight loss and fever RESPIRATORY: No cough, wheezing or shortness of breath CARDIOVASCULAR: Negative for chest pain, leg swelling and palpitations GI: Negative for abdominal discomfort, changes in bowel habits, blood in stool or black stools : Negative for dysuria, frequency, and incontinence VITAL SIGNS Vitals: 09/28/24 1130 BP: 117/75 Pulse: 81 Resp: 15 Temp: 36.7 ??C (98.1 ??F) TempSrc: Temporal SpO2: 98% Weight: 86.8 kg (191 lb 6.4 oz) Height: 1.778 m (70 ) Body mass index is 27.46 kg/m??. Body surface area is 2.05 meters squared. PHYSICAL EXAM: Blood pressure 117/75, pulse 81, temperature 36.7 ??C (98.1 ??F), temperature source Temporal, resp. rate 15, height 1.778 m (70 ), weight 86.8 kg (191 lb 6.4 oz), SpO2 98%. Body mass index is 27.46 kg/m??. Plan is deferred until next visit APPEARANCE: Alert and in no acute distress HEART: RRR with normal S1 and S2, no murmurs, no gallops, no JVD appreciated CHEST: non-tender LUNG: clear to auscultation bilaterally ABDOMEN: Bowel sounds normoactive, no bruits and soft, non-tender, without organomegaly or palpablemasses Recent Results (from the past 4 weeks) POC glucose manually resulted Collection Time: 09/02/24 12:04 PM Result Value Ref Range Glucose POC 442 mg/dL Comprehensive metabolic panel Collection Time: 09/02/24 1:55 PM Result Value Ref Range Sodium 136 133 - 145 mmol/L Potassium 4.1 3.5 - 5.5 mmol/L Chloride 102 96 - 110 mmol/L CO2 28 21 - 32 mmol/L Anion Gap 6 3 - 11 Glucose 319 (H) 70 - 100 mg/dL BUN 18 5 - 25 mg/dL Creatinine 1.01 0.70 - 1.30 mg/dL eGFR 89 >=60 mL/min/1.73m2 BUN/Creatinine Ratio 17.8 Calcium 9.0 8.5 - 10.5 mg/dL AST (SGOT) 23 10 - 42 unit/L ALT (SGPT) 44 10 - 60 unit/L Alkaline Phosphatase 179 (H) 42 - 121 unit/L Total Protein 7.2 6.0 - 8.0 g/dL Albumin 3.3 3.2 - 5.0 g/dL Total Bilirubin 0.6 0.0 - 1.4 mg/dL Lipase Collection Time: 09/02/24 1:55 PM Result Value Ref Range Lipase 63 13 - 75 unit/L Magnesium Collection Time: 09/02/24 1:55 PM Result Value Ref Range Magnesium 1.9 1.9 - 2.6 mg/dL Osmolality Collection Time: 09/02/24 1:55 PM Result Value Ref Range Osmolality Day 308 (H) 280 - 300 mOsm/kg Beta hydroxybutyrate Collection Time: 09/02/24 1:55 PM Result Value Ref Range Beta-Hydroxybutyrate 1.2 0.2 - 2.8 mg/dL Venous blood gas Collection Time: 09/02/24 1:55 PM Result Value Ref Range pH, Antoni 7.49 (H) 7.32 - 7.42 pH pCO2, Antoni 38 (L) 41 - 51 mmHg pO2, Antoni 37 25 - 40 mmHg HCO3, Venous 28.3 (H) 22.0 - 26.0 mmol/L O2 Sat, Antoni 74.9 % Base Excess, Antoni 5.4 (H) -2.0 - 2.0 mmol/L CBC auto differential Collection Time: 09/02/24 1:55 PM Result Value Ref Range WBC 10.1 4.8 - 10.8 K/mcL RBC 4.70 4.50 - 5.50 M/mcL Hemoglobin 14.9 13.5 - 17.5 g/dL Hematocrit 43.5 42.0 - 54.0 % MCV 92.8 79.0 - 98.0 FL MCH 31.8 27.0 - 32.0 pcg MCHC 34.3 32.0 - 37.0 g/dL RDW 12.7 11.0 - 15.0 % Platelets 190 130 - 400 K/mcL MPV 11.9 (H) 7.0 - 11.0 FL NRBC 0.0 <1.0 % NRBC Absolute 0.00 <0.10 K/mcL Neutrophils Relative 60.7 % Lymphocytes Relative 29.7 % Monocytes Relative 6.1 % Eosinophils Relative 1.7 % Basophils Relative 1.5 % Immature Granulocytes Relative 0.3 % Neutrophils Absolute 6.13 1.50 - 7.00 K/mcL Lymphocytes Absolute 3.00 1.00 - 5.00 K/mcL Monocytes Absolute 0.62 0.20 - 1.00 K/mcL Eosinophils Absolute 0.17 0.00 - 0.50 K/mcL Basophils Absolute 0.15 0.00 - 0.20 K/mcL Immature Granulocytes Absolute 0.03 0.00 - 0.03 K/mcL POCT Glucose, blood Collection Time: 09/02/24 2:10 PM Result Value Ref Range Glucose POCT 336 (H) 70 - 100 mg/dL POCT Glucose, blood Collection Time: 09/02/24 3:15 PM Result Value Ref Range Glucose POCT 269 (H) 70 - 100 mg/dL POC glucose manually resulted Collection Time: 09/02/24 3:16 PM Result Value Ref Range Glucose POC 269 (A) 70 - 110 mg/dL ASSESSMENT/PLAN: Doc was seen today for diabetes. Diagnoses and all orders for this visit: Uncontrolled type 2 diabetes mellitus with hyperglycemia ([facility] V24, [facility] V28) (Primary) - Hemoglobin A1c; Future - Comprehensive metabolic panel; Future - Microalbumin creatinine urine ratio; Future Presence of cardiac pacemaker for complete atrioventricular block ([facility] V24, [facility] V28) - Cancel: Ambulatory referral to Cardiology; Future - Cancel: Ambulatory referral to Cardiology; Future Chronic obstructive pulmonary disease, unspecified COPD type ([facility] V24, [facility] V28) - Pulmonary function testing: Nitrogen Wash Out, Spirometry with Bronchodilator, Carbon Monoxide Diffusing Capacity Moderate persistent asthma without complication Encounter for screening for malignant neoplasm of lung in current smoker with 20 pack year history or greater - Ambulatory referral to Thoracic Surgery; Future Encounter for screening for malignant neoplasm of colon - Ambulatory referral to Gastroenterology; Future Tobacco dependency Need for hepatitis B screening test - Hepatitis B surface antibody; Future Encounter for screening for HIV - HIV 1,2 antibody, p24 antigen with reflex to differentiation; Future Need for vaccination against Streptococcus pneumoniae - Pneumococcal conjugate 20 valent (Prevnar 20, PCV 20) 2mo and older Other orders - magnesium oxide (MAG-OX) 400 mg magnesium tablet; Take 1 tablet (400 mg total) by mouth 3 (three)times a day. - varenicline tartrate (CHANTIX ROSALINDA) 0.5 mg (11)- 1 mg (42) tablet; Take 0.5 mg by mouth 1 (one) time each day for 3 days (days 1-3), THEN 0.5 mg 2 (two) times a day for 4 days (days 4-7), THEN 1 mg 2 (two) times a day for 12 weeks. Plan Referred for screening colonoscopy as well as lung cancer screening. Continue advised to start insulin Lantus and continue metformin. Continue amlodipine, losartan for hypertension. Will check microalbumin with next set of labs. Repeat diabetic labs in 3 months. Continue Zetia and atorvastatin. He informing today that he has an appointment with [place] [facility] and he is seeing him today. Continue albuterol and Breo Ellipta. Scheduled to see neurology in upcoming weeks as well. Continue Keppra for now Sensory exam of the foot is normal , tested with the monofilament. 2+ dorsalis pedis pulses, no lesions or ulcers. Tobacco Counseling The patient smokes cigarettes and desires to quit. We created the following quit plan: Prescribed the following medications: varenicline. Reviewed STAR protocol and added to patient instructions. I have applied the code G2211 to this patient???s visit as the primary care provider dealing with (above mentioned conditions) leading to the extensive work up, and management associated with the medical care of this patient. This patient???s serious conditions and complex medical conditions also required several consultants needing management and coordination through my office. I have reviewed all information as it pertains to the management of this patient for final approval. Follow up in about 1 month (around 10/29/2024) for Next scheduled follow-up. Orders Placed This Encounter Procedures Pneumococcal conjugate 20 valent (Prevnar 20, PCV 20) 2mo and older Hemoglobin A1c Comprehensive metabolic panel Microalbumin creatinine urine ratio HIV 1,2 antibody, p24 antigen with reflex to differentiation Hepatitis B surface antibody Ambulatory referral to Gastroenterology Ambulatory referral to Thoracic Surgery Pulmonary function testing: Nitrogen Wash Out, Spirometry with Bronchodilator, Carbon Monoxide Diffusing Capacity Ramone Miller MD * Alysa Stuart MA - 09/28/2024 12:00 PM EDT Staff Review: Pneumococcal vaccine has been ordered. The following was reviewed: Immunization verified as PCV20 in Labor Arbitrator: yes Immunization tab reviewed: If previous immunization of Pneumococcal vaccine noted in Immunization tab, order and time interval confirmed with provider: yes Female patient under 55 years old: Last LMP confirmed. If - may be able to receive immunization- check with provider Confirmed that patient is not receiving Shingrix on same day or within 28 days of the PPSV23: yes Patient: The following questions were reviewed with the patient: The patient acknowledges that they will be receiving the pneumococcal vaccine: yes Denies allergy or reaction to previous Pneumococcal vaccine or Diptheria toxoid: yes Acknowledges reviewing the VIS for PPSV23, for PCV13, or for PCV20 (copy made available): yes Denies moderate or severe illness or fever of >100 degrees F: yes Patient agrees to wait in the office for 20 minutes after receiving the injection: yes Pneumococcal vaccine administered: PCV20. See Imm/Inj tab Electronically signed by: Alysa Stuart MA 09/28/2024 12:04 PM EDT documented in this encounter Plan of Treatment Upcoming Encounters Date Type Department Care Team (Late st Contact Info) Description 10/29/2024 11:15 AM EDT Office Visit Adult Medicine [facility] [address] [place] [address] Ramone Miller MD [address] [place] [address] Scheduled Orders Name Type Priority Associated Diagnoses Orde r Schedule Hemoglobin A1c Lab Routine Uncontrolled type 2 diabetes mellitus with hyperglycemia ([facility] V24, [facility] V28) Expected: 12/29/2024, Expires: 09/28/2025 Comprehensive metabolic panel Lab Routine Uncontrolled type 2 diabetes mellitus with hyperglycemia ([facility] V24, [facility] V28) Expected: 12/29/2024, Expires: 09/28/2025 Microalbumin creatinine urine ratio Lab Routine Uncontrolled type 2 diabetes mellitus with hyperglycemia ([facility] V24, CMS/HCC V28) Expected: 12/29/2024, Expires: 09/28/2025 HIV 1,2 antibody, p24 antigen with reflex to differentiation Lab Routine Encounter for screening for HIV Expected: 12/29/2024, Expires: 09/28/2025 Hepatitis B surface antibody Lab Routine Need for hepatitis B screening test Expected: 12/29/2024, Expires: 09/28/2025 Pulmonary function testing: Nitrogen Wash Out, Spirometry with Bronchodilator, Carbon Monoxide Diffusing Capacity PFT Routine Chronic obstructive pulmonary disease, unspecified COPD type ([facility] V24, [facility] V28) Ordered: 09/28/2024 Scheduled Referrals Name Type Priority Associated Diagnoses Order Schedule Ambulatory referral to Gastroenterology Outpatient Referral Routine Encounter for screening for malignant neoplasm of colon 1 Occurrences starting 09/28/2024 until 09/28/2025 Ambulatory referral to Thoracic Surgery Outpatient Referral Routine Encounter for screening for malignant neoplasm of lung in current smoker with 20 pack year history or greater 1 Occurrences starting 09/28/2024 until 09/28/2025 documented as of this encounter Visit Diagnoses Diagnosis Uncontrolled type 2 diabetes mellitus with hyperglycemia ([facility] V24, [facility] V28)- Primary Presence of cardiac pacemaker for complete atrioventricular block ([facility] V24, [facility] V28) Chronic obstructive pulmonary disease, unspecified COPD type ([facility] V24, [facility] V28) Moderate persistent asthma without complication Encounter for screening for malignant neoplasm of lung in current smoker with 20 pack year history or greater Encounter for screening for malignant neoplasm of colon Tobacco dependency Tobacco use disorder Need for hepatitis B screening test Encounter for screening for HIV Need for vaccination against Streptococcus pneumoniae documented in this encounter Discontinued Medications Medication Sig Discontinue Reason Start Date End Da te magnesium oxide (MAG-OX) 400 mg magnesium tablet Take 1 tablet (400 mg total) by mouth 3 (three) times a day. Reorder 09/28/2024 [employer] Erick 2 Ribera misc See administration instructions. Reorder 02/08/2024 09/28/2024 documented as of this encounter Orders Immunization/Injection Count Last Ordered Date First Ordered Date PNEUMOCOCCAL CONJUGATE 20 VA LENT (PREVNAR 20, PCV 20) 2MO AND OLDER 1 09/28/2024 documented in this encounter Additional Health Concerns Assessment Noted Time PHQ-9 Depression Total Score: 1 09/03/19 11:39 AM EDT documented as of this encounter Care Teams Mortgage Broker Relationship Specialty Start Date End Date Ramone Miller MD [address] [place] [address] PCP - General Internal Medicine 07/29/24 documented as of this encounter
[2024-09-28 13:06] VITALS: BP 100/58; PULSE 81; BMI 26.9
--- NOTE | 2024-09-28 13:06 | A.OFFVIS_ITS ---
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 Electric Organ Checker Name: EVON [id number] Allergies No Known Allergies (No Known Allergies*) Allergy (Verified 02/28/21 14:37) Medication List - Last Reconciled 09/28/24 by Ed Hines MD aripiprazole 10 mg PO QPM aspirin 81 mg PO DAILY atorvastatin (Lipitor) 80 mg PO BEDTIME blood sugar diagnostic (FreeStyle Lite Strips) As directed four times a day bupropion HCl XL 300 mg PO DAILY cholecalciferol (vitamin D3) 50 mcg PO QAM dulaglutide (Trulicity) 3 mg subcut QWEEK ezetimibe 10 mg PO DAILY gabapentin 1 tab PO TID hydroxyzine pamoate 1 cap PO BEDTIME PRN insulin aspart U-100 (Novolog FlexPen U-100 Insulin aspart) 15 units (0.15 mL) subcut TID insulin degludec 40 units (0.4 mL) subcut QPM 30 days lancets (TRUEplus Lancets) 4 x/day lancets As directed levetiracetam 750 mg PO BID lisinopril 5 mg PO DAILY metformin ER 2 tabs PO BID nitroglycerin 1 tab sublingual USEASDIRECTD omeprazole 1 cap PO QAM pen needle, diabetic As directed venlafaxine ER 150 mg PO QAM HPI Comments Details: Doc is here for cardiac consultation. Available records from [place] were reviewed. He had apparently presented to the [facility] with high-degree AV block and positive Lyme IgG in April of 2024. He was admitted but left against medical advice. Subsequently, readmitted for syncope but Western blot was negative Lyme. Unremarkable troponins.. In that context, he underwent a micra leadless pacemaker. Per their own device interrogation, ventricular pacing was 0.4%. He is now moved to [place] and seeks local care. Multiple cardiovascular risk factors including diabetes, hypertension, dyslipidemia. Poorly controlled diabetes as it seems her hemoglobin A1c was > 15. Since his return, he states there is generally doing okay. No clear-cut cardiac symptoms. No angina or shortness of breath. [facility] Medical History (Updated 09/28/24 @ 13:55 by Ed Hines MD) Right sided weakness Goiter High serum luteinizing hormone (LH) Tobacco use disorder Essential hypertension Type 2 diabetes mellitus with unspecified complications Hyperlipidemia LDL goal <70 Chronic diarrhea Normal echocardiogram History of myocardial infarction High cholesterol High cholesterol Arthritis HTN (hypertension) Depression Anxiety Diabetes Surgical History H/O cardiac catheterization Hx of foot surgery History of appendectomy Family History Mother Alzheimer disease HTN (hypertension) Father Old age Brother Diabetes mellitus Maternal Grandmother Diabetes mellitus Heart disease Social History Household Members: Family and Friend(s) Household Members Other:: Roommate Housing: House Do you presently have visiting nurse or other home services: No Alcohol intake: former Year quit: 2019 Patient Tobacco Use Status: Former Tobacco user Tobacco use type: Cigarette Years Smoked: 36 +/- Second Hand Smoke Exposure: No Substance Use Type: Crack/Cocaine and Other Advance Directives Date on File: 11/30/20 service: No Current occupational status: unemployed and disabled Review of Systems Const Denies weakness ENT Denies dizziness Card Denies chest pain, Reports chest pain with activity, Denies syncope, Denies rapid heart rate, Denies pedal edema, Denies edema, Denies leg edema, Denies lightheadedness, Reports palpitations, Denies dyspnea, Reports dyspnea on exertion and Denies orthopnea Resp Denies cough, Denies dyspnea and Reports dyspnea on exertion GI Denies hematochezia and Denies change in stool character Musc Denies abnormal gait, Denies muscle cramps, Denies muscle weakness, Denies numbness, Denies radiating pain into limb and Denies tingling Neuro Denies abnormal gait, Denies dizziness, Denies syncope, Denies numbness, Denies tingling and Denies weakness Endo Reports palpitations Physical Exam Vital Signs: Last Vital Signs Pulse 81 09/28/24 13:06 BP 100/58 L 09/28/24 13:06 BMI result Body Mass Index 26.9 Const General: comfortable and no acute distress Orientation/consciousness: patient oriented x3 HEENT Other: Unremarkable Head: Yes normal to inspection Neck Neck: Yes normal visual inspection Chest Chest palpation & inspection: normal inspection of the chest Resp Auscultation: clear to auscultation bilaterally Cardio Palpation: normal PMI Heart sounds: S1 normal heart sound present, S2 normal heart sound present, no gallops, no murmurs and no rubs GI Palpation (GI): Soft to palpation Back/Spine/Pelvis Other: unremarkable Skin General skin exam: no rashes or lesions noted Neuro General: patient oriented x3 Extrem General: Yes normal to inspection Psych Mental Status: mental status grossly normal Office Procedures Cardiac Device Check Cardiac Device Check Details: Pacemaker interrogated today. Leadless micra pacemaker. Battery status 10 years. Normal lead parameters. Minimal ventricular pacing. Normal device function. [id number] Cardiac Device Check, leadless/single lead pacemaker Procedure code (CPT) selection complete EKG Details: EKG with underlying sinus rhythm at 81/Min; cannot exclude old septal or lateral infarct[place]. [id number], Complete Assessment & Plan Assessment & Plan (1) Heart block atrioventricular: Code(s): I44.30 - Unspecified atrioventricular block Category: Medical (2) Type 2 diabetes mellitus with unspecified complications: Code(s): E11.8 - Type 2 diabetes mellitus with unspecified complications Category: Medical (3) HTN (hypertension): Code(s): I10 - Essential (primary) hypertension Category: Medical Qualifiers: Hypertension type: essential hypertension Qualified Code(s): I10 - Essential (primary) hypertension (4) High cholesterol: Code(s): E78.00 - Pure hypercholesterolemia, unspecified Category: Medical Plan 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 However, Western blot was apparently negative. Hence he needs further workup for obstructive CAD. We will plan on an echocardiogram and coronary CTA for further evaluation. Otherwise, mainly risk factor modification. We will follow up with him once the testing is completed. Remote monitoring we will also need to be transferred to our practice. Orders: Orders CA echo transthoracic complete Today I44.30 - Unspecified atrioventricular block CT Cardiac Coronary Angio Today I25.10 - Atherosclerotic heart disease of [place] coronary artery without angina pectoris, I44.30 - Unspecified atrioventricular block Basic Metabolic Panel Today I44.30 - Unspecified atrioventricular block Coding Level of Care Code New Pt Level 4 (81281) Complex EM visit Add On G2211 Diagnoses Heart block atrioventricular I44.30 Type 2 diabetes mellitus with unspecified complications E11.8 Essential hypertension I10 Hypertension type: essential hypertension High cholesterol E78.00 CPT Codes Cardiac Device Check - Cardiac Device 1: [id number] Cardiac Device Check, leadless/single lead pacemaker ([id number]) EKG - CPT: 37331-Zozorurlpdieqvsra, Complete ([id number])
== END 2024-09-28 13:33 | disposition home or self-care (01) ==
LOC: HO.HCS 12:47
PROVIDERS: PCP Family Medicine; Visit Provider Internal Medicine
DX: I44.30 Unspecified atrioventricular block (principal); E11.8 Type 2 diabetes mellitus with unspecified complications; I10 Essential (primary) hypertension; E78.00 Pure hypercholesterolemia, unspecified
CPT/HCPCS: 93010; 93279; 99204

== ENCOUNTER → 2024-09-28 12:47 | Outpatient (BNVA) | payer OTHER, MEDICAID, SELFPAY | PROVIDERS: PCP Family Medicine; Visit Provider Internal Medicine | DX: I10 Essential (primary) hypertension (principal) | CPT/HCPCS: 93005 ==

== ENCOUNTER → 2024-10-05 23:59 | Outpatient (BNV) | payer OTHER, MEDICAID, SELFPAY ==
--- NOTE | 2024-10-20 13:56 | A.OFFVIS_ITS ---
Intake Visit Reasons: Remote device check- [employer] Allergies No Known Allergies (No Known Allergies*) Allergy (Verified 02/28/21 14:37) [facility] Medical History (Updated 10/20/24 @ 13:59 by Ed Hines MD) Right sided weakness Goiter High serum luteinizing hormone (LH) Tobacco use disorder Essential hypertension Type 2 diabetes mellitus with unspecified complications Hyperlipidemia LDL goal <70 Chronic diarrhea Normal echocardiogram History of myocardial infarction High cholesterol High cholesterol Arthritis HTN (hypertension) Depression Anxiety Diabetes Surgical History H/O cardiac catheterization Hx of foot surgery History of appendectomy Family History Mother Alzheimer disease HTN (hypertension) Father Old age Brother Diabetes mellitus Maternal Grandmother Diabetes mellitus Heart disease Social History Household Members: Family and Friend(s) Household Members Other:: Roommate Housing: House Do you presently have visiting nurse or other home services: No Alcohol intake: former Year quit: 2019 Patient Tobacco Use Status: Former Tobacco user Tobacco use type: Cigarette Years Smoked: 36 +/- Second Hand Smoke Exposure: No Substance Use Type: Crack/Cocaine and Other Advance Directives Date on File: 11/30/20 service: No Current occupational status: unemployed and disabled Office Procedures Cardiac Device Check Cardiac Device Check Details: Date of service- 10/05/2024 ; Battery life >10 years; normal lead parameters; 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 Overall normal device function. [id number] Cardiac Device Interrogation, pacemaker Procedure code (CPT) selection complete Assessment & Plan Assessment & Plan (1) Pacemaker: Code(s): Z95.0 - Presence of cardiac pacemaker Category: Medical (2) Heart block atrioventricular: Code(s): I44.30 - Unspecified atrioventricular block Category: Medical Plan x Coding Level of Care Code Procedure Only Diagnoses Pacemaker Z95.0 Heart block atrioventricular I44.30 CPT Codes Cardiac Device Check - Cardiac Device 12: [id number] Cardiac Device Interrogation, pacemaker ([id number])
== END ==
PROVIDERS: Visit Provider Internal Medicine
DX: I44.30 Unspecified atrioventricular block (principal); Z95.0 Presence of cardiac pacemaker
CPT/HCPCS: 93294

== ENCOUNTER → 2024-11-04 07:51 | Outpatient (REF) | payer OTHER, MEDICAID, SELFPAY ==
--- OUTSIDE RECORDS SUMMARY | 2024-10-29 17:16 | XMS_ITS | Encounter Summary ---
Author Organization [facility] Address [address] [place] [address] Care Team Providers Care Alpine Patroller Name Role Phone Ramone Miller MD Primary Care Provider Reason for Visit * Reason Comments Chest Pain Hyperglycemia Encounter Details Date Type Department Care Team ([facility] st Contact Info) Description 10/29/2024 5:16 PM EDT - 10/29/2024 11:12 PM EDT Emergency [facility] Emergency [address] [place] [phone] Nicki Pichardo MD [address] [place] [address] Silvano Hunter MD [address] [facility] [address] [place] [address] Chest pain, unspecified type (Primary Dx); Hyperglycemia Discharge Disposition: Left Against Medical Advice Social History Tobacco Use Types Packs/Day Years Used Date Smoking Tobacco: Every Day Cigarettes 1 39.7 Started: 1985 Passive Smoke Exposure: Never Smokeless Tobacco: Never Alcohol Use Standard Drinks/Week Comments Not Currently 0 (1 standard drink = 0.6 oz pur e alcohol) Housing Instability Answer Date Recorde d Are [...] for your loved ones. For example, child nutrition director or elderly care for an older adult? [...] Sign Reading Time Taken Comments Blood Pressure 141/81 10/29/2024 9:26 PM EDT Pulse 79 10/29/2024 9:26 PM EDT Temperature 36.9 C (98.4 F) 10/29/2024 9:26 PM EDT Respiratory Rate 12 10/29/2024 5:28 PM EDT Oxygen Saturation 98% 10/29/2024 9:26 PM EDT Inhaled Oxygen Concentration - - Weight 83.5 kg (184 lb) 10/29/2024 5:41 PM EDT Height 177.8 cm (5' 10 ) 10/29/2024 5:41 PM EDT Body Mass Index 26.4 10/29/2024 5:41 PM EDT documented in this encounter Discharge Instructions * Discharge Instructions* Silvano Hunter MD - 10/29/2024 9:07 PM EDT You are leaving the hospital against my advice. You have or may have a life- threatening illness or injury which I would like to evaluate and treat further. You may from this today, or become gravely disabled or very sick. Please return to medical care immediately when you are willing to allow us to care for you. Call your doctor as soon as possible. Discussed with your doctor the need for a stress test of your heart. * Attachments The following attachments cannot be sent through Care Everywhere. * Chest Pain (Indonesian) * Hyperglycemia: General Info (Indonesian) documented in this encounter Medications at Time of Discharge amLODIPine (NORVASC) 10 mg tablet Take 1 tablet (10 mg total) by mouth 1 (one) time each day. 90 each 09/02/2024 ARIPiprazole (ABILIFY) 5 mg tablet Take 1 tablet (5 mg total) by mouth 1 (one) time each day. 90 each 09/02/2024 aspirin 81 mg EC tablet Take 1 tablet (81 mg total) by mouth 1 (one) time each day. 90 each 09/02/2024 atorvastatin (LIPITOR) 80 mg tablet Take 1 tablet (80 mg total) by mouth 1 (one) time each day. 90 each 09/02/2024 ezetimibe (ZETIA) 10 mg tablet Take 1 tablet (10 mg total) by mouth 1 (one) time each day. 90 each 09/02/2024 fluticasone furoate-vilanter oL (BREO ELLIPTA) 200-25 mcg/dose inhaler Inhale 1 puff by mouth 1 (one) time each day. 1 each 3 09/02/2024 FreeStyle Erick 2 Verdi misc To monitor blood sugar continuously 1 each 3 09/28/2024 FreeStyle Erick 2 Sensor kit To monitor blood sugar 1 EA 1 09/03/2024 hydrOXYzine HCL (ATARAX) 25 mg tablet Take 1 tablet (25 mg total) by mouth every 8 (eight) hours if needed for itching. 270 each 09/02/2024 insulin glargine (LANTUS SoloStar) 100 unit/mL (3 mL) injection pen Inject 35 Units under the skin at bedtime. 15 mL 5 09/02/2024 insulin lispro (HumaLOG KwikPen) 100 unit/mL injection pen Inject 5 Units under the skin 3 (three) times a day before meals. 09/12/2023 levETIRAcetam (KEPPRA) 750 mg tablet Take 1 tablet (750 mg total) by mouth 2 (two) times a day. 180 each 09/02/2024 losartan (COZAAR) 25 mg tablet Take 1 tablet (25 mg total) by mouth 1 (one) time each day. 90 each 09/02/2024 magnesium oxide (MAG-OX) 400 mg magnesium tablet Take 1 tablet (400 mg total) by mouth 3 (three) times a day. 90 tablet 1 09/28/2024 metFORMIN (GLUCOPHAGE) 850 mg tablet Take 1 tablet (850 mg total) by mouth 2 (two) times a day with meals. 180 each 1 09/02/2024 omeprazole (PriLOSEC) [address] capsule Take 1 capsule (40 mg total) by mouth 1 (one) time each day in the morning. 90 capsule 09/02/2024 varenicline tartrate (CHANTIX ROSALINDA) 0.5 mg (11)- 1 mg (42) tablet Take 0.5 mg by mouth 1 (one) time each day for 3 days (days 1-3), THEN 0.5 mg 2 (two) times a day for 4 days (days 4-7), THEN 1 mg 2 (two) times a day for 12 weeks. 53 tablet 1 09/28/2024 documented as of this encounter Discharge Disposition Disposition Code Departure Means Destination Comment s Left Against Medical Advice Home documented in this encounter Progress Notes * Janine Bell RN - 10/29/2024 5:19 PM EDT Pt arrives by EMS from home C/O CP, hyperglycemia, and general malaise. Pt stated to EMS that he woke up around 9am and that's when he had onset of CP, pt reported to EMS that he took 324mg of ASA prior to their arrival. Pt also reported to EMS that he has been having issues with his blood sugars, and took 35 units of insulin. Pt given 250mL of NS and 3x sublingual nitro en route by EMS. 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 Pt's home meds: amlodipine, atorvastatin, ezetimibe, insuin detemir, levetiracetam, lorsartan, metformin, omeprazole. * Nicki Pichardo MD - 10/29/2024 5:09 PM EDT HPI Chief Complaint Patient presents with Chest Pain Hyperglycemia 54-year-old male with past medical history of seizures, hypertension, dm, pacemaker in place presenting to the ED due to concern for chest pain. Substernal nonradiating chest pain. Onset earlier today. Took 324 aspirin and received nitro x 3 by EMS. Denies any significant alleviation of symptoms with nitro administration. Denies any cardiac stents. No associated dyspnea. Is also concerned that his blood sugar was very high today over 500. No abdominal pain nausea or vomiting. Takes his medications as prescribed and did not take any additional insulin today. Bhavin Coma Scale Score: 15 Patient History Past Medical History: Diagnosis Date Anxiety Depression Diabetes mellitus (CMS/HCC V24, CMS/HCC V28) Hyperlipidemia Hypertension Pacemaker Seizures (CMS/HCC V24, CMS/[facility] V28) No past surgical history on file. Family History Problem Relation Name Age of Onset Heart disease Maternal Grandmother Social History Tobacco Use Smoking status: Every Day Current packs/day: 1.00 Average packs/day: 1 pack/day for 39.7 years (39.7 ttl pk-yrs) Types: Cigarettes Start date: 1985 Passive exposure: Never Smokeless tobacco: Never Substance Use Topics Alcohol use: Not Currently Drug use: Never Review of Systems Review of Systems Physical Exam ED Triage Vitals [10/29/24 1728] Temp Heart Rate Resp BP 36.5 ??C (97.7 ??F) 95 12 (!) 143/80 SpO2 Temp Source Heart Rate Source Patient Position 98 % Oral Monitor -- BP Location FiO2 (%) -- -- Physical Exam Constitutional: Appearance: He is well-developed. HENT: Head: Normocephalic and atraumatic. Cardiovascular: Rate and Rhythm: Normal rate and regular rhythm. Pulmonary: Effort: Pulmonary effort is normal. Abdominal: Palpations: Abdomen is soft. Tenderness: There is no abdominal tenderness. Musculoskeletal: General: Normal range of motion. Skin: General: Skin is warm and dry. Neurological: General: No focal deficit present. Mental Status: He is alert and oriented to person, place, and time. ED Course & MDM ED Course as of 10/31/24 0838 [facility] Oct 29, 2024 190 Chest xray appears similar to prior [JW] 2007 Hyperglycemia w/o anion gap acidosis - not suggestive of DKA [JW] 2007 Pending repeat trop [JW] 2108 Patient signed out to me by Dr. Pichardo. Presenting with chest pain. He also send be hyperglycemic not in DKA or HHS. Patient has a pacemaker but no history of coronary artery disease, previous physician concern for low risk chest pain. Signed out to me pending repeat troponin. [RT] 2202 Repeat troponin 6. [RT] 2301 Repeat zypxe-oa-[id number] glucose 226. [RT] ED Course User Index [JW] Nicki Pichardo MD [RT] Silvano Hunter MD Clinical Impressions as of 10/31/24 0838 Chest pain, unspecified type Hyperglycemia Medical Decision Making 54-year-old male presenting to the ED with concern for chest pain as well as hyperglycemia. On arrival to ED patient is hemodynamically stable. No acute or respiratory distress. No increased work of breathing. EKG without acute ischemic changes. Initial troponin not elevated. No significant alleviation of symptoms with nitro. Patient with a heart score of 2-low risk for ACS. Patient also concerned due to hyperglycemia. This is without anion gap or acidosis to indicate DKA. Given IV fluids as well as 5 units of lispro. Pending repeat troponin at this time. Signed for Dr. Hunter. Procedures Nicki Pichardo MD 10/29/24 1748 Nicki Pichardo MD 10/31/24 0840 * Silvano Hunter MD - 10/29/2024 5:09 PM EDT ED Course as of 10/29/24 2301 Katarzyna Oct 29, 2024 1904 Chest xray appears similar to prior [JW] 2007 Hyperglycemia w/o anion gap acidosis - not suggestive of DKA [JW] 2007 Pending repeat trop [JW] 2107 Patient signed out to me by Dr. Pichardo. Presenting with chest pain. He also send be hyperglycemic not in DKA or HHS. Patient has a pacemaker but no history of coronary artery disease, previous physician concern for low risk chest pain. Signed out to me pending repeat troponin. [RT] 2202 Repeat troponin 6. [RT] 2301 Repeat wymud-mv-zrqt glucose 226. [RT] ED Course User Index [JW] Nicki Pichardo MD [RT] Silvano Hunter MD Clinical Impressions as of 10/29/24 2301 Chest pain, unspecified type Hyperglycemia EKG sinus rhythm 78 bpm, intervals within normal limits, left axis deviation, no sign of acute ischemia. Similar when compared to prior. Patient is a 54-year-old male with history of hypertension, hyperlipidemia and diabetes and previous reported IA by patient's who presented with chest pain. He was given nitroglycerin and aspirin. Onmy evaluation of patient his pain has resolved. I saw this patient on October 06 and admitted patient for cardiac stress test given his elevated heart score and increased risk for acute cardiac life-threatening event. At that time patient refused cardiac stress testing with the hospitalist and was sent home. 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 Pt with hx of hypertension, hyperlipidemia, diabetes, reported IA, cardiac risk factors presents with chest pain, story concerning for cardiac pain based on midsternal, now resolved after nitroglycerin and aspirin, particularly with hx/risk factors as above. Initial trop negative, EKG with no acuteischemic changes. No STEMI or NSTEMI at this time, however given pt high risk, warrants admit for complete r/o ACS, possible stress test and trend trops inpatient. HEAR score 5. Considered wide ddx for pt's presentation, including PNA, PTX, PE, aortic dissection, pleural effusion, CHF, COPD/asthma, shingles -- less/not c/w H&P and supportive studies. 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 Patient does not want to stay and prefers to be discharged home. The patient is clinically sober, free from distracting injury, appears to have intact insight and judgment and reason, can carry on a conversation and in my opinion has the capacity to make decisions. The patient presents with chest pain. I have explained that I am concerned that this may represent serious or life threatening pathology; the patient has verbalized an understanding of my concerns. Ashleigh told the patient that while their initial workup may be normal, they could still have a life threatening condition. I have discussed the need for further workup to get more information about potential causes of the patient???s symptoms. I have told the patient that if they leave and have an emergent process, they could get much worse, could become critically ill, and could possibly become disabled or . I have offered to give the patient more pain medication. I have asked them to stay inthe hospital for observation. I have offered reasonable alternatives to the best of my ability. The patient is not willing to undergo further workup or stay for monitoring. They are refusing any further care and leaving against medical advice. I am unable to convince the patient to stay, but I have asked them to return as soon as possible to complete their evaluation. I have answered all their questions. Silvano Hunter MD 10/29/242216 Silvano Hunter MD 10/29/24 2233 Silvano Hunter MD 10/29/24 2302 documented in this encounter Plan of Treatment Upcoming Encounters Date Type Department Care Team (Late st Contact Info) Description 11/11/2024 10:30 AM EDT Office Visit Lung Screening Program - [place] [address] [facility] [address] [place] [address] Clemente Cortés PA [address] [place] [phone] 11/11/2024 11:00 AM EDT Appointment [facility] CT Scan [address] [place] [phone] 12/17/2024 12:30 PM EDT Appointment [facility] Endoscopy [address] [place] [phone] Milind Zheng MD [address] [facility] [address] [place] [address] documented as of this encounter Procedures Procedure Name Priority Date/Time Associated Diagnosis Comments ECG ANNOTATED 10/30/2024 POCT GLUCOSE BLOOD Routine 10/29/2024 11 :00 PM EDT TROPONIN I HIGH SENSITIVITY STAT 10/29/2024 8:14 PM EDT ECG 12-LEAD STAT 10/29/2024 7:53 PM EDT XR CHEST 2 VIEWS STAT 10/29/2024 6:44 PM EDT TROPONIN I HIGH SENSITIVITY Timed 10/29/2024 6:03 PM EDT CBC WITH AUTO DIFFERENTIAL STAT 10/29/2024 6:03 PM EDT CBC AND DIFFERENTIAL STAT 10/29/2024 6:03 PM EDT VENOUS BLOOD GAS STAT 10/29/2024 6:03 PM EDT BASIC METABOLIC PANEL STAT 10/29/2024 6:03 PM EDT POCT GLUCOSE BLOOD Routine 10/29/2024 5: 20 PM EDT documented in this encounter Results * ECG-Annotated (10/30/2024) Provider Onbase MD ECG ORDERABLES Final Result * (ABNORMAL) POCT Glucose, blood (10/29/2024 11:00 PM EDT) [facility] Glucose POCT 226(H) 70 - 100 mg/dL 10/29/2024 11:[address] [facility] Blood Capillary blood specimen / Unknown 10/29/2024 11:00 PM EDT 10/29/2024 11:02 PM EDT Silvano Hunter MD LAB POINT OF CARE TE ST DOCKED DEVICE UNSOLICITED RESULTS Final Result Performing Organization Address [facility]/ZIP Co de Phone Number [facility] [address] [place] [address], * Troponin I High Sensitivity (10/29/2024 8:14 PM EDT) [facility] High Sensitivity Troponin I 6 <=79 ng/L LAB CHEMISTRY METHOD 10/29/2024 9:[address] [facility] Blood Venous blood specimen / Unknown Venipuncture / Unknown 10/29/2024 8:14 PM EDT 10/29/2024 8:[address] [facility] - 10/29/2024 9:15 PM EDT High levels of biotin in samples may falsely decrease hsTroponin values. Use caution when interpreting hsTroponin results in patients taking biotin who exhibit renal impairment (eGFR <60) or in patients taking more than 20 mg/day of biotin. Nicki Pichardo MD LAB BLOOD ORDERABLES Final Resul t Performing Organization Address [facility]/ZIP Co de Phone Number [facility] [address] [place] [address], * 12-Lead ECG (10/29/2024 7:53 PM EDT) Ventricular Rate ECG 78 BPM GEMUSE Atrial Rate 78 BPM GEMUSE P-R Interval 188 ms GEMUSE QRS Duration 100 ms GEMUSE Q-T Interval 364 ms GEMUSE QTc 414 ms GEMUSE P Wave Neely 42 degrees GEMUSE R Neely -46 degrees GEMUSE T Neely 35 degrees GEMUSE ECG Interpretation Normal sinus rhythm Left axis deviation Septal infarct (cited on or before 06-OCT-2024) Abnormal ECG When compared with ECG of 07-OCT-2024 01:29, No significant change was found Confirmed by MD CUI JOHN ([id number]) on 10/30/2024 4:12:51 PM GEMUSE 10/29/2024 7:53 PM EDT 10/30/2024 4:12 PM EDT us Nicki Pichardo MD ECG ORDERABLES Final Result GEMUSE * XR Chest 2 Views (10/29/2024 6:44 PM EDT) Anatomical Region Laterality Modality Body Radiographic Xiomy ging 10/30/2024 9:34 AM EDT Impressions 10/30/2024 9:34 AM EDT No acute findings. -------- FINAL REPORT -------- Dictated By: Amador Valerio Dictated Date: 10/30/2024 09:34 ET Assigned Physician: Amador Valerio Reviewed and Electronically Signed By: Amador Valerio Signed Date: 10/30/2024 09:34 ET Workstation ID: [id number] Transcribed By: Self Edit Transcribed Date: 10/30/2024 09:34 ET Narrative 10/30/2024 9:34 AM EDT PROCEDURE: PA and lateral radiographs of the chest. HISTORY: chest pain. COMPARISON: 10/07/2024. FINDINGS: Intracardiac pacemaker. 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 Lungs, pleural spaces, pulmonary vasculature, and cardiomediastinal contours are normal. Procedure Note Amador Valerio MD - 10/30/2024 PROCEDURE: PA and lateral radiographs of the chest. HISTORY: chest pain. COMPARISON: 10/07/2024. FINDINGS: Intracardiac pacemaker. 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 Lungs, pleuralspaces, pulmonary vasculature, and cardiomediastinal contours arenormal. IMPRESSION: No acute findings. -------- FINAL REPORT -------- Dictated By: Amador Valerio Dictated Date: 10/30/2024 09:34 ET Assigned Physician: Amador Valerio Reviewed and Electronically Signed By: Amador Valerio Signed Date: 10/30/2024 09:34 ET Workstation ID: [id number] Transcribed By: Self Edit Transcribed Date: 10/30/2024 09:34 ET Nicki Pichardo MD IMG XR PROCEDURES Final Result * (ABNORMAL) Venous blood gas (10/29/2024 6:03 PM EDT) pH, Antoni 7.39 7.32 - 7.42 pH 10/29/2024 7:[address] [facility] pCO2, Antoni 42 41 - 51 mmHg 10/29/2024 7:[address] [facility] pO2, Antoni 47(H) 25 - 40 mmHg 10/29/2024 7:[address] [facility] HCO3, Venous 24.6 22.0 - 26.0 mmol/L 10/29/2024 7:[address] [facility] O2 Sat, Antoni 77.8 % 10/29/2024 7:[address] [facility] Base Excess, Antoni 0.3 -2.0 - 2.0 mmol/L 10/29/2024 7:[address] [facility] Blood Venous blood specimen / Unknown Venipuncture / Unknown 10/29/2024 6:03 PM EDT 10/29/2024 7:11 PM EDT us Nicki Pichardo MD LAB BLOOD ORDERABLES Final Resul t [facility] [address] [place] [address], * (ABNORMAL) CBC auto differential (10/29/2024 6:03 PM EDT) WBC 9.5 4.8 - 10.8 K/mcL LAB HEMETOLOGY METHOD 10/29/2024 7:[address] [facility] RBC 4.00(L) 4.50 - 5.50 M/mcL LAB HEMETOLOGY METHOD 10/29/2024 7:[address] [facility] Hemoglobin 12.4(L) 13.5 - 17.5 g/dL LAB HEMETOLOGY METHOD 10/29/2024 7:[address] [facility] Hematocrit 36.5(L) 42.0 - 54.0 % LAB HEMETOLOGY METHOD 10/29/2024 7:[address] [facility] MCV 91.3 79.0 - 98.0 FL LAB HEMETOLOGY METHOD 10/29/2024 7:[address] [facility] MCH 31.0 27.0 - 32.0 pcg LAB HEMETOLOGY METHOD 10/29/2024 7:[address] [facility] MCHC 34.0 32.0 - 37.0 g/dL LAB HEMETOLOGY METHOD 10/29/2024 7:[address] [facility] RDW 12.9 11.0 - 15.0 % LAB HEMETOLOGY METHOD 10/29/2024 7:[address] [facility] Platelets 182 130 - 400 K/mcL LAB HEMETOLOGY METHOD 10/29/2024 7:[address] [facility] MPV 12.9(H) 7.0 - 11.0 FL LAB HEMETOLOGY METHOD 10/29[facility]2024 [facility] NRBC 0.0 <1.0 % LAB HEMETOLOGY METHOD 10/29/2024 7:22 PM [facility] NRBC Absolute 0.00 <0.10 K/mcL LAB HEMETOLOGY METHOD 10/29/2024 7:22 PM [facility] Neutrophils Relative 46.3 % LAB HEMETOLOGY METHOD 10/29/2024 7:22 PM [facility] Lymphocytes Relative 42.4 % LAB HEMETOLOGY METHOD 10/29/2024 7:22 PM [facility] Monocytes Relative 7.4 % LAB HEMETOLOGY METHOD 10/29/2024 7:22 PM [facility] Eosinophils Relative 2.1 % LAB HEMETOLOGY METHOD 10/29/2024 7:22 PM [facility] Basophils Relative 1.5 % LAB HEMETOLOGY METHOD 10/29/2024 7:22 PM [facility] Immature Granulocytes Relative 0.3 % LAB HEMETOLOGY METHOD 10/29/2024 7:22 PM [facility] Neutrophils Absolute 4.37 1.50 - 7.00 K/mcL LAB HEMETOLOGY METHOD 10/29/2024 7:22 PM [facility] Lymphocytes Absolute 4.01 1.00 - 5.00 K/mcL LAB HEMETOLOGY METHOD 10/29/2024 7:22 PM [facility] Monocytes Absolute 0.70 0.20 - 1.00 K/mcL LAB HEMETOLOGY METHOD 10/29/2024 7:22 PM [facility] Eosinophils Absolute 0.20 0.00 - 0.50 K/mcL LAB HEMETOLOGY METHOD 10/29/2024 7:22 PM [facility] Basophils Absolute 0.14 0.00 - 0.20 K/mcL LAB HEMETOLOGY METHOD 10/29/2024 7:[address] [facility] Immature Granulocytes Absolute 0.03 0.00 - 0.03 K/[facility] LAB HEMETOLOGY METHOD 10/29/2024 7:[address] [facility] Blood Venous blood specimen / Unknown Venipuncture / Unknown 10/29/2024 6:03 PM EDT 10/29/2024 7:13 PM EDT us Nicki Pichardo MD LAB BLOOD ORDERABLES Final Resul t Performing Organization Address [facility] Co de Phone Number [facility] [address] [place] [address], [place] [phone] * Troponin I high sensitivity (NOW and then in 1 hour) (10/29/2024 6:03 PM EDT) [facility] High Sensitivity Troponin I 6 <=79 ng/L LAB CHEMISTRY METHOD 10/29/2024 8:[address] [facility] Blood Venous blood specimen / Unknown Venipuncture / Unknown 10/29/2024 6:03 PM EDT 10/29/2024 7:[address] [facility] - 10/29/2024 8:00 PM EDT High levels of biotin in samples may falsely decrease hsTroponin values. Use caution when interpreting hsTroponin results in patients taking biotin who exhibit renal impairment (eGFR <60) or in patients taking more than 20 mg/day of biotin. us Nicki Pichardo MD LAB BLOOD ORDERABLES Final Resul t Performing Organization Address [facility]/ZIP Co de Phone Number [facility] [address] [place] [address], [place] [phone] * (ABNORMAL) Basic Metabolic Panel (BMP) (10/29/2024 6:03 PM EDT) Sodium 135 133 - 145 mmol/L LAB CHEMISTRY METHOD 10/29/2024 8:08 PM [facility] Potassium 3.8 3.5 - 5.5 mmol/L LAB CHEMISTRY METHOD 10/29/2024 8:08 PM [facility] Comment:Hemolysis present Chloride 103 96 - 110 mmol/L LAB CHEMISTRY METHOD 10/29/2024 8:08 PM [facility] CO2 26 21 - 32 mmol/L LAB CHEMISTRY METHOD 10/29/2024 8:08 PM [facility] Anion Gap 6 3 - 11 LAB CHEMISTRY METHOD 10/29/2024 8:08 PM [facility] Glucose 402(HH) 70 - 100 mg/dL LAB CHEMISTRY METHOD 10/29/2024 8:08 PM [facility] BUN 21 5 - 25 mg/dL LAB CHEMISTRY METHOD 10/29/2024 8:08 PM [facility] Creatinine 1.03 0.70 - 1.30 mg/dL LAB CHEMISTRY METHOD 10/29/2024 8:08 PM [facility] eGFR 87 >=60 mL/min/1. 73m2 LAB CHEMISTRY METHOD 10/29/2024 8:08 PM [facility] Comment:Calculation based on the Chronic Kidney Disease Epidemiology Collaboration (CKD-EPI) equation refit without adjustment for race. BUN/Creatinine Ratio 20.4 LAB CHEMISTRY METHOD 10/29/2024 8:08 PM [facility] Calcium 8.5 8.5 - 10.5 mg/dL LAB CHEMISTRY METHOD 10/29/2024 8:08 PM [facility] Blood Venous blood specimen / Unknown Venipuncture / Unknown 10/29/2024 6:03 PM EDT 10/29/2024 7:13 PM EDT us Nicki Pichardo MD LAB BLOOD ORDERABLES Final Resul t [facility] [address] [place] [address], [place] [phone] * (ABNORMAL) POCT Glucose, blood (10/29/2024 5:20 PM EDT) [facility] Glucose POCT 464(HH) 70 - 100 mg/dL 10/29/2024 6:[address] [facility] Blood Capillary blood specimen / Unknown 10/29/2024 5:20 PM EDT 10/29/2024 6:31 PM EDT Nicki Pichardo MD LAB POINT OF CARE TE ST DOCKED DEVICE UNSOLICITED RESULTS Final Result Performing Organization Address [facility] Co de Phone Number [facility] [address] [place] [address], [place] [phone] documented in this encounter Visit Diagnoses Diagnosis Chest pain, unspecified type- Primary Hyperglycemia Other abnormal glucose documented in this encounter Administered Medications Inactive Administered Medications - up to 3 most recent administrations Medication Order MAR Action Action Date Dose Rate Site insulin lispro injection 5 Units 5 Units, subcutaneous, Once, On Katarzyna 10/29/24 at 2008, For 1 dose Given 10/29/2024 8:20 PM EDT 5 Units Right Lower Abdomen sodium chloride 0.9 % bolus 1,000 mL 1,000 mL, intravenous, at 1,000 mL/hr, Administer over 1 Hours, Once, On Sat10/29/24 at 1747, For 1 dose New Bag 10/29/2024 6:04 PM EDT 1,000 mL 1000 mL/hr documented in this encounter Active and Recently Administered Medications Times are shown in EDT. Scheduled Medication Order 10/27/2024 10/28/2024 10/29/2024 insulin lispro injection 5 Units (COMPLETED) 5 Units, subcutaneous, Once, On Katarzyna 10/29/24 at 2008, For 1 dose 2019 (Given - Provid er: Nicki Woods RN) sodium chloride 0.9 % bolus 1,000 mL (COMPLETED) 1,000 mL, intravenous, at 1,000 mL/hr, Administer over 1 Hours, Once, On Katarzyna 10/29/24 at 1747, For 1 dose 1804 (New Bag - Prov ider: Nicki Woods RN)[id number] (Stopped - Provider: Nicki Woods RN) documented in this encounter Orders Medications Ordered That Magan ht Not Have Been Administered Count Last Ordered Date First Ordered Date insulin lispro injection 10 Units 1 025 documented in this encounter Additional Health Concerns Assessment Noted Time PHQ-9 Depression Total Score: 1 09/03/19 11:39 AM EDT documented as of this encounter Care Teams [employer] Relationship Specialty Start Date End Date Ramone Miller MD [address] [place] [id number] PCP - General Internal Medicine 07/29/24 documented as of this encounter
--- NOTE | 2024-11-04 07:53 | CA_ITS ---
Transthoracic Echocardiogram Patient (Last, First, Middle): Doc Greene, Gender: M Date of : 1970 Age: 54 Procedure Date: 11/04/2024 Procedure Type: Transthoracic Echocardiogram Location: OP Height: 177.8 cm Weight: 86.18 kg BSA: 2.04 m2 Heart Rate: bpm BP: 122 / 70 mmHg Bag Turner: /RC Referring MD: Ed Hines MD Symptoms: I44.30 - Unspecified atrioventricular block Study Quality: Adequate ECG Rhythm: Sinus Conclusions: - The left ventricular systolic function is normal. The calculated ejection fraction is 59% by biplane method. - There is moderately increased left ventricular wall thickness. - No obvious valvular pathology seen on this study. Findings Left Ventricle Normal left ventricular cavity size. There is moderately increased left ventricular wall thickness. The left ventricular systolic function is normal. The calculated ejection fraction is 59% by biplane method. There is no evidence of regional wall motion abnormalities. Diastolic function is normal for age. Right Ventricle Normal right ventricular cavity size and systolic function. Atria Both atria are normal in size. Aortic Valve There is a normal trileaflet aortic valve. There is no aortic valve stenosis. There is no aortic valve regurgitation. Mitral Valve The mitral valve appears normal. There is no mitral valve regurgitation. There is no mitral valve stenosis. Pulmonic Valve The pulmonic valve is likely normal. Tricuspid Valve There is no tricuspid valve regurgitation. There is no evidence of pulmonary hypertension. Great Vessels The asc aorta is normal in size. Venous The inferior vena cava is normal in size and collapses greater than 50% with inspiration. Pericardium/Pleural There is a trivial pericardial effusion. Prior Study Comparison No significant change compared to prior study dated: 11/11/2020. Recommendations, Care & Conclusions No obvious valvular pathology seen on this study. Measurements 2D Linear Measurements IVSd: 1.33 0.6-0.9/0.6-1.0 cm LVIDd: 4.14 3.9-5.3/4.2-5.9 cm LVIDd Index: 2.03 2.4-3.2/2.2-3.1 cm/m2 LVIDs: 2.57 2.0-3.6 cm LVPWd: 1.31 0.7-1.1 cm Ao Root: 3.10 2.1-3.5 cm LA Diam: 3.90 2.7-3.8/3.0-4.0 cm LAIDs Index: 1.91 1.5-2.3 cm/m2 LV Mass: 250.34 67-162/88-224 g LV Mass Index: 122.71 43-95/49-115 g/m2 LVOT Diam: 2.20 3.0+(-)1.3 cm 2D Systolic Function EF 4C: 61.10 >55% EF 2C: 58.90 >55% EF BiP: 59.20 >55% Mitral Valve MV Pk E: 0.54 MV PK A: 0.78 MV Decel Time: 92.00 E/A: 0.70 E'Lateral: 7.51 E'Medial: 4.03 E/E' Med: 13.40 E/E' Lat: 7.20 PHT: 27.00 MVA PHT: 8.15 Decel [place]: 5.89 Aortic Valve AoV Pk Ronni: 1.26 AoV Mn Ronni: 0.83 AoV VTI: 0.26 AoV Pk Grad: 6.00 Aov Mn Grad: 3.00 DEMETRA Cont.VTI: 2.61 LVOT LVOT Pk Ronni: 0.84 LVOT Mn Ronni: 0.57 LVOT VTI: 0.18 LVOT Pk Grad: 3.00 LVOT Mn Grad: 2.00 LVOT Diam: 2.20 LVOT Area: 3.80 Diastolic Function MV Pk E: 0.54 MV Pk A: 0.78 E/A: 0.70 E'Medial: 4.03 E/E' Med: 13.40 E' Laterial: 7.51 E/E' Lat: 7.20 Right Ventricle TAPSE (mm): 27.00 TVS' Ronni: 11.00 Tricuspid Valve TR Pk Ronni: 2.00 TR Pk Grad: 16.00 RA Press: 3.00 RVSP: 19.00 Great Vessels Aorta Ao Root-2D: 3.10 2.0-3.7 cm Ao Asc: 3.20 2.1-3.4 cm Pulmonary Valve PV Pk Ronni: 0.98 Peak PV Grad: 4.00 Updated in Other Vendor System with Status of Final Ed Hines MD electronically signed on 11/06/2024 11:25:03 AM with status of Final
--- OUTSIDE RECORDS SUMMARY | 2024-11-04 07:54 | XMS_ITS | Clinical Summary ---
Author Organization [address] Address [address] [place], [place] Phone Care Team Providers Care Associate Chief Nurse Name Role Phone Ramone Miller MD Primary Care Provider Allergies No known active allergies Medications insulin lispro (HumaLOG KwikPen) 100 unit/mL injection pen Inject 5 Units under the skin 3 (three) times a day before meals. 4 Active amLODIPine (NORVASC) 10 mg tablet Take 1 tablet (10 mg total) by mouth 1 (one) time each day. 90 each 5 Active aspirin 81 mg EC tablet Take 1 tablet (81 mg total) by mouth 1 (one) time each day. 90 each 5 Active atorvastatin (LIPITOR) 80 mg tablet Take 1 tablet (80 mg total) by mouth 1 (one) time each day. 90 each 5 Active ezetimibe (ZETIA) 10 mg tablet Take 1 tablet (10 mg total) by mouth 1 (one) time each day. 90 each 5 Active fluticasone furoate-vilante roL (BREO ELLIPTA) 200-25 mcg/dose inhaler Inhale 1 puff by mouth 1 (one) time each day. 1 each 3 5 Active hydrOXYzine HCL (ATARAX) 25 mg tablet Take 1 tablet (25 mg total) by mouth every 8 (eight) hours if needed for itching. 270 each 5 Active insulin glargine (LANTUS SoloStar) 100 unit/mL (3 mL) injection pen Inject 35 Units under the skin at bedtime. 15 mL 5 5 Active levETIRAcetam (KEPPRA) 750 mg tablet Take 1 tablet (750 mg total) by mouth 2 (two) times a day. 180 each 5 Active losartan (COZAAR) 25 mg tablet Take 1 tablet (25 mg total) by mouth 1 (one) time each day. 90 each 5 Active omeprazole (PriLOSEC) [address] capsule Take 1 capsule (40 mg total) by mouth 1 (one) time each day in the morning. 90 capsule 5 Active ARIPiprazole (ABILIFY) 5 mg tablet Take 1 tablet (5 mg total) by mouth 1 (one) time each day. 90 each 5 Active metFORMIN (GLUCOPHAGE) 850 mg tablet Take 1 tablet (850 mg total) by mouth 2 (two) times a day with meals. 180 each 1 5 Active FreeStyle Erick 2 Sensor kit To monitor blood sugar 1 EA 1 5 Active magnesium oxide (MAG-OX) 400 mg magnesium tablet Take 1 tablet (400 mg total) by mouth 3 (three) times a day. 90 tablet 1 5 Active varenicline tartrate (CHANTIX ROSALINDA) 0.5 mg (11)- 1 mg (42) tablet Take 0.5 mg by mouth 1 (one) time each day for 3 days (days 1-3), THEN 0.5 mg 2 (two) times a day for 4 days (days 4-7), THEN 1 mg 2 (two) times a day for 12 weeks. 53 tablet 1 5 12/28/19 25 Active FreeStyle Erick 2 Stuart misc To monitor blood sugar continuously 1 each 3 5 Active Active Problems Problem Noted Date Diagnosed Date Asthma 05/09/2024 Homeless 05/09/2024 Closed fracture of triquetrum of right wrist 01/2025 Presence of cardiac pacemake r for complete atrioventricular block (CMS/HCC V24, CMS/HCC V28) 04/29/2024 Lyme disease 04/29/2024 Right wrist injury 04/29/2024 Right wrist pain 04/29/2024 Syncope 04/29/2024 Abdominal pain 09/11/2023 Chest pain 08/09/2023 Foot ulcer ([facility] V24, CMS/HCC V28) 04/06/2023 Intermittent palpitations 05/28/2022 Overview (09/02/2024): The patient also complains of history of intermittent palpitation and skipped beats. Twelve-lead EKG at this point showed sinus rhythm. Patient has multiple risk factors, in view of history of tobacco use, seizure disorder, TIA episodes in the past, consideration for cardiac event monitor regarding abnormal cardiac arrhythmias were discussed with him. Atherosclerosis of [place] co ronary artery of [place] heart with angina pectoris ([facility] V24) 05/24/2022 TIA (transient ischemic attack) 05/24/2022 Overview (09/02/2024): History of TIA/possible stroke, in association with remote history of seizure disorder, currently on antiseizure medications (Keppra). On diet and lifestyle modification optimization of risk factors modification, with a goal to keep systolic blood pressure below 120, LDL below 70, and optimization diabetic mellitus. CTA brain (04/23/2022-[facility]): Suspect plaque stenosis or nonocclusive dissection proximal left vertebral artery prior to entrance into the transverse foramen . 9 mm polypoid lesion in the right main stem bronchus near the raad. With history of smoking, follow-up direct visualization could represent polyp/neoplasm. CT brain (04/23/2022): No acute intracranial abnormality. MRI brain (04/24/2022-[facility]): BRAIN PARENCHYMA: There is no discrete mass, mass effect or midline shift. There is no intracranial hemorrhage. There is no evidence of acute infarction and diffusion imaging is unremarkable. Few stable punctate foci of FLAIR hyperintensity in the frontal white matter that are nonspecific but likely to minimal chronic microangiopathy. Stable small flow voids in the right frontal lobe corresponding with previously demonstrated developmental venous anomaly. There is an adjacent tiny focus of susceptibility that may represent tiny associated cavernous malformation. VENTRICLES: Normal for the patient's age. SELLA AND PITUITARY GLAND: Normal. ORBITS: Normal. PARANASAL SINUSES: Minimal mucosal thickening. VASCULATURE: Evaluation of the major intracranial vasculature demonstrates appropriate flow voids. Chronic obstructive pulmonar y disease ([facility] V24, [facility] V28) 05/22/[address] scan 04/24/2022 Anxiety 04/24/2022 Shortness of breath 03/02/2022 TJ (acute kidney injury) ([facility] V24) 08/25/19 Gastroesophageal reflux disease without esophagi tis 08/24/2021 Overview (09/02/2024): History of GERD, on diet for modification, optimization of risk factors modifications, including tobacco abuse, diabetic mellitus and mixed dyslipidemia management. Peripheral neuropathy 08/24/2021 Stroke-like symptoms 06/29/2021 Seizure disorder ([facility] V24, [facility] V28) 05/19 Overview (09/02/2024): History of seizure this order, patient is under care of neurology with antiseizure medication and seizure preventions. EEG (01/31/2022-[facility]): This 72-hour ambulatory EEG, obtained in the awake and asleep states, is normal. No focal slowing or epileptiform abnormalities were seen. One typical event of left hand shaking was captured and it was not a seizure. Ambulatory dysfunction 04/24/2021 Depression 04/24/2021 High degree atrioventricular block 04/24/2021 Essential hypertension 01/25/2020 Overview (09/02/2024): History of hypertension, hypertensive cardiovascular disease with no clinical evidence for congestive heart failure at this time. Optimization of blood pressure control with a goal to keep systolic blood pressure below 120 mmHg, especially in view of patient history of diabetic mellitus and multiple risk factors for atherosclerotic heart disease. Echocardiogram (04/24/2022-[facility]): ? Left Ventricle: Left ventricular cavity size is normal. Wall thickness is normal. The left ventricular ejection fraction is 55%. Systolic function is normal. Wall motion is normal. Diastolic function is normal. ? Right Ventricle: Right ventricular cavity size is normal. Systolic function is normal. ? Mitral Valve: There is trace regurgitation. Echocardiogram (08/24/2021): ? Left Ventricle: Left ventricle is normal in size. There is mild septal hypertrophy. Systolic function is normal with an ejection fraction of 55-60%. Wall motion is within normal limits. There is normal diastolic function. ? Right Ventricle: Right ventricle cavity is normal. Systolic function is normal. ? Pericardium: There is a trivial pericardial effusion. No hemodynamically significant valvular heart disease. Mixed hyperlipidemia 01/25/2020 Overview (09/02/2024): History of mixed hyper lipidemia associated with diabetic mellitus this, PA/stroke, seizure disorder, on optimize medical therapy with goal to keep LDL below 70 and triglyceride 150 mg/dL. Uncontrolled type 2 diabetes mellitus with hyperglycemia ([facility] V24, [facility] V28) 01/25/2020 Obstructive sleep apnea 03/30/2013 Nicotine dependence 03/30/2013 Resolved Problems Problem Noted Date Diagnosed Date Resolved Date SIRS (systemic inflammatory response syndrome) ([facility] V24, [facility] V28) 05/10/2024 Lung mass 09/17/2023 09/28/2024 Electrolyte abnormality 04/24/202108/18 Encounters Date Type Department Care Team Description 10/29/2024 5:16 PM EDT - 10/29/2024 11:12 PM EDT Emergency [facility] Emergency [address] [place] [address] Nicki Pichardo MD Touriel, Ross, MD Chest pain, unspecified type (Primary Dx); Hyperglycemia Discharge Disposition: Left Against Medical Advice 10/13/2024 Telephone Adult Medicine [address] [phone] Ramone Miller MD 10/10/2024 12:34 PM EDT - 10/10/2024 1:22 PM EDT Emergency [facility] Emergency [address] [place] [address] Contusion of right knee, initial encounter (Primary Dx); Hypertension, poor control Discharge Disposition: Home or Self Care 10/06/2024 10:49 PM EDT - 10/07/2024 12:14 PM EDT Hospital Encounter [facility] Emergency [address] [place] [address] Silvano Hunter MD Jones, Christopher, MD Kela, Kashyap Devendrabhai, MD Chest pain, unspecified type (Primary Dx); Colon cancer screening Discharge Disposition: Home or Self Care 09/28/2024 12:00 PM EDT Office Visit [address] [phone] Ramone Miller MD Uncontrolled type 2 diabetes mellitus with hyperglycemia [...] HIV; Need for vaccination against Streptococcus pneumoniae 09/28/2024 Telephone Adult [address] [phone] Ramone Miller MD 09/03/2024 Telephone Adult [address] [phone] Ramone Miller MD 09/03/2024 Telephone [facility] [address] [phone] Ramone Miller MD 09/02/2024 1:11 PM EDT - 09/02/2024 4:27 PM EDT Emergency [facility] Emergency [address] [place] [phone] Akhil Porter MD Type 1 diabetes mellitus with hyperglycemia (CMS/HCC V24, CMS/HCC V28) (Primary Dx); Noncompliance with medication regimen Discharge Disposition: Home or Self Care 09/02/2024 12:00 PM EDT Office Visit [address] [phone] Ramone Miller MD Encounter to establish care (Primary Dx); Chronic obstructive pulmonary disease, unspecified COPD type ([facility] V24, [facility] V28); Presence of cardiac pacemaker for complete atrioventricular block ([facility] V24, [facility] V28); Uncontrolled type 2 diabetes mellitus with hyperglycemia ([facility] V24, [facility] V28); Moderate persistent asthma without complication; Complete heart block ([facility] V24, [facility] V28); Essential hypertension; Seizure disorder ([facility] V24, [facility] V28); Atherosclerosis of [place] coronary artery of [place] heart with angina pectoris ([facility] V24); Mixed hyperlipidemia; Injury of right wrist, sequela; Cigarette nicotine dependence with other nicotine-induced disorder 09/02/2024 Telephone Adult Medicine [address] [phone] Ramone Miller MD 08/10/2024 11:44 PM EDT - 08/11/2024 1:45 AM EDT [facility] [address] [place] [phone] Discharge Disposition: Home or Self Care 08/03/2024 5:22 PM EDT - 08/04/2024 12:23 AM EDT [facility] [address] [place] [phone] Discharge Disposition: Home or Self Care from Last 3 Months Immunizations Name Administration Dates Next Due Pneumococcal conjugate 20 ri lent (Prevnar 20, PCV 20) 2mo and older 09/28/2024 Medical History Medical History Date Comments Pacemaker Diabetes mellitus ([facility] V24, [facility] V28) Hypertension Depression Hyperlipidemia Anxiety Seizures ([facility] V24, [facility] V28) Family History Medical History Relation Name Comments Heart disease Maternal Grandmother Relation Name Status Comments Maternal Grandmother Social History Tobacco Use Types Packs/Day Years Used Date Smoking Tobacco: Every Day Cigarettes 1 39.7 Started: 1985 Passive Smoke Exposure: Never Smokeless Tobacco: Never Tobacco Cessation:Ready to Q uit: Not Asked; Counseling Given: Not Answered Alcohol Use Standard Drinks/Week Comments Not Currently [...] care for your loved ones. For example, exceptional children's teacher or elderly care for an older adult? [...] on file Sexual Orientation Not on file Obstetrics History Last Filed Vital Signs Vital Sign Reading [...] Mass Index 26.4 10/29/2024 5:41 PM EDT Plan of Treatment Upcoming Encounters Date Type Department Care Team (Late st Contact Info) Description 11/11/2024 10:30 AM EDT Office Visit Lung Screening Program - Stephen [address] [facility] [address] [place] [phone] Clemente Cortés PA [address] [place] [phone] 11/11/2024 11:00 AM EDT Appointment [facility] CT Scan [address] [place] [phone] 12/17/2024 12:30 PM EDT Appointment [facility] Endoscopy [address] [place] [phone] Milind Zheng MD [address] [facility] [address] [place] [address] Health Maintenance Due Date Last Done Comments Diabetes: Annual Retina Eye Exam 04/17/1981 Zoster Vaccines (1 of 2) 04/17/2021 Colorectal Cancer Screening: Colonoscopy 01/20/2022 HIV Screening 01/20/2022 Lung Cancer Screening (Low Dose CT) 01/20/2022 Medicare Annual Wellness Visit 01/20/2022 Diabetes: Annual Urine Albumin-Creatinine Ratio (uACR) 10/13/2024 10/14/2023, 10/14/2023, 01/12/2022 COVID-19 Vaccine (3 - season) 2024 02/03/2021, 05/04/2020 Influenza Vaccine (#1) 2024 , 02/03/2021, 01/25/2020, Additional history exists Diabetes: Blood Sugar Control Test (HGBA1C) 04/08/2025 10/06/2024, 04/28/2024, 01/17/2024, Additional history exists Social Influencers of Health Screening 09/02/2025 09/02/2024 Diabetes: Annual Foot Exam 09/28/2025 09/28/2024 Diabetes: Annual GFR (Glomerular Filtration Rate) 10/29/2025 10/29/2024, 10/07/2024, 10/06/2024, Additional history exists Hypertension/CHF/CAD Annual BMP Blood Test 10/29/2025 10/29/2024, 10/07/2024, 10/06/2024, Additional history exists Cholesterol Screening (Lipid Panel) 05/12/2029 05/12/2024, 09/23/2023, 08/10/2023, Additional history exists DTaP,Tdap,and Td Vaccines (3 - Td or Tdap) 05/14/2031 05/13/2021, 07/20/2015 Hepatitis B Vaccines Completed 12/22/2020, 07/22/2020, 05/25/2020 Hepatitis C Screening Completed 08/25/2021 Depression Screening Completed 09/02/2024 Pneumococcal Vaccine: 50+ Years Completed 09/28/2024, 07/20/2015 HIB Vaccines Aged Out No longer eligi ble based on patient's age to complete this topic HPV Vaccines Aged Out No longer eligi ble based on patient's age to complete this topic Hepatitis A Vaccines Aged Out No long er eligible based on patient's age to complete this topic IPV Vaccines Aged Out No longer eligi ble based on patient's age to complete this topic MMR Vaccines Aged Out No longer eligi ble based on patient's age to complete this topic Meningococcal ACWY Vaccine Aged Out N o longer eligible based on patient's age to complete this topic Meningococcal B Vaccine Aged Out No l onger eligible based on patient's age to complete this topic RSV Immunization Patients Under 20 months Aged Out No longer eligible based on patient's age to complete this topic Varicella Vaccines Aged Out No longer eligible based on patient's age to complete this topic Procedures Procedure Name Priority Date/Time Associated Diagnosis Comments ECG ANNOTATED 10/30/2024 POCT GLUCOSE BLOOD Routine 10/29/2024 11 :00 PM EDT TROPONIN I HIGH SENSITIVITY STAT 10/29/2024 8:14 PM EDT ECG 12-LEAD STAT 10/29/2024 7:53 PM EDT XR CHEST 2 VIEWS STAT 10/29/2024 6:44 PM EDT VENOUS BLOOD GAS STAT 10/29/2024 6:03 PM EDT CBC WITH AUTO DIFFERENTIAL STAT 10/29/2024 6:03 PM EDT TROPONIN I HIGH SENSITIVITY Timed 10/29/2024 6:03 PM EDT BASIC METABOLIC PANEL STAT 10/29/2024 6:03 PM EDT CBC AND DIFFERENTIAL STAT 10/29/2024 6:03 PM EDT POCT GLUCOSE BLOOD Routine 10/29/2024 5: 20 PM EDT XR KNEE 4+ VIEWS RIGHT STAT 12:27 PM EDT ECG ANNOTATED 10/08/2024 ECG ANNOTATED 10/08/2024 POCT GLUCOSE BLOOD Routine 10/07/2024 8: 09 AM EDT MANUAL DIFFERENTIAL - SYSMEX WAM Routine 10/07/2024 5:19 AM EDT TROPONIN I HIGH SENSITIVITY Routine 10/07/2024 5:19 AM EDT MAGNESIUM Routine 10/07/2024 5:19 AM EDT CBC WITH AUTO DIFFERENTIAL Routine 10/07/2024 5:19 AM EDT CBC AND DIFFERENTIAL Routine 10/07/2024 5:19 AM EDT BASIC METABOLIC PANEL Routine 10/07/2024 5:19 AM EDT ECG 12-LEAD STAT 10/07/2024 1:29 AM EDT TROPONIN I HIGH SENSITIVITY Timed 10/07/2024 12:41 AM EDT XR CHEST 2 VIEWS STAT 10/07/2024 12:1 6 AM EDT ECG 12-LEAD STAT 10/06/2024 11:21 PM EDT POCT GLUCOSE BLOOD Routine 10/06/2024 11 :06 PM EDT MANUAL DIFFERENTIAL - SYSMEX WAM STAT 10/06/2024 11:04 PM EDT PROLACTIN STAT Add-on 10/06/2024 11:04 PM EDT HEMOGLOBIN A1C Add-On 10/06/2024 11:04 PM EDT BETA HYDROXYBUTYRATE Add-On 10/06/2024 11:04 PM EDT LEVETIRACETAM LEVEL Timed 10/06/2024 1 1:04 PM EDT CBC WITH AUTO DIFFERENTIAL STAT 10/06/2024 11:04 PM EDT B-TYPE NATRIURETIC PEPTIDE STAT 10/06/2024 11:04 PM EDT MAGNESIUM STAT 10/06/2024 11:04 PM EDT LIPASE STAT 10/06/2024 11:04 PM EDT COMPREHENSIVE METABOLIC PANEL STAT 10/06/2024 11:04 PM EDT CBC AND DIFFERENTIAL STAT 10/06/2024 11:04 PM EDT TROPONIN I HIGH SENSITIVITY Timed 10/06/2024 11:04 PM EDT POC GLUCOSE STAT 09/02/2024 3:16 PM EDT POCT GLUCOSE BLOOD Routine 09/02/2024 3: 15 PM EDT POCT GLUCOSE BLOOD Routine 09/02/2024 2: 10 PM EDT CBC WITH AUTO DIFFERENTIAL STAT 09/02/2024 1:55 PM EDT VENOUS BLOOD GAS STAT 09/02/2024 1:55 PM EDT BETA HYDROXYBUTYRATE STAT 09/02/2024 1:55 PM EDT OSMOLALITY STAT 09/02/2024 1:55 PM EDT MAGNESIUM STAT 09/02/2024 1:55 PM EDT LIPASE STAT 09/02/2024 1:55 PM EDT COMPREHENSIVE METABOLIC PANEL STAT 09/02/2024 1:55 PM EDT CBC AND DIFFERENTIAL STAT 09/02/2024 1:55 PM EDT POC GLUCOSE Routine 09/02/2024 12:04 PM EDT Uncontrolled type 2 diabetes mellitus with hyperglycemia (CMS/HCC V24, CMS/HCC V28) ECG ANNOTATED 08/12/2024 XR CHEST 2 VIEWS STAT 08/11/2024 12:4 1 AM EDT CBC WITH AUTO DIFFERENTIAL STAT 08/11/2024 12:03 AM EDT B-TYPE NATRIURETIC PEPTIDE STAT 08/11/2024 12:03 AM EDT MAGNESIUM STAT 08/11/2024 12:03 AM EDT LIPASE STAT 08/11/2024 12:03 AM EDT COMPREHENSIVE METABOLIC PANEL STAT 08/11/2024 12:03 AM EDT CBC AND DIFFERENTIAL STAT 08/11/2024 12:03 AM EDT TROPONIN I HIGH SENSITIVITY STAT 08/11/2024 12:03 AM EDT ECG 12-LEAD STAT 08/10/2024 11:53 PM EDT from Last 3 Months Results * ECG-Annotated (10/30/2024) Only the most recent of4 resultswithin the time period is included. us Provider Onbase ECG ORDERABLES Final Result * (ABNORMAL) POCT Glucose, blood (10/29/2024 11:00 PM EDT) Only the most recent of6 resultswithin the time period is included. [facility] Glucose POCT 226(H) 70 - 100 mg/dL 10/29/2024 11:01 PM EDT [facility] Blood Capillary blood specimen / Unknown 10/29/2024 11:00 PM EDT 10/29/2024 11:02 PM EDT us Silvano Hunter MD LAB POINT OF CARE TE ST DOCKED DEVICE UNSOLICITED RESULTS Final Result [facility] [address] [place] [address], [place] [phone] * Troponin I High Sensitivity (10/29/2024 8:14 PM EDT) Only the most recent of6 resultswithin the time period is included. [facility] High Sensitivity Troponin I 6 <=79 ng/L LAB CHEMISTRY METHOD 10/29/2024 9:15 PM EDT [facility] Blood Venous blood specimen / Unknown Venipuncture / Unknown 10/29/2024 8:14 PM EDT 10/29/2024 8:49 PM EDT Narrative [facility] - 10/29/2024 9:15 PM EDT High levels of biotin in samples may falsely decrease hsTroponin values. Use caution when interpreting hsTroponin results in patients taking biotin who exhibit renal impairment (eGFR <60) or in patients taking more than 20 mg/day of biotin. Nicki Pichardo MD LAB BLOOD ORDERABLES Final Resul t [facility] [address] [place] [address], [place] [phone] * 12-Lead ECG (10/29/2024 7:53 PM EDT) Only the most recent of4 resultswithin the time period is included. [facility] Ventricular Rate ECG 78 BPM GEMUSE Atrial Rate 78 BPM GEMUSE P-R Interval 188 ms GEMUSE QRS Duration 100 ms GEMUSE Q-T Interval 364 ms GEMUSE QTc 414 ms GEMUSE P Wave [place] 42 degrees GEMUSE R [place] -46 degrees GEMUSE T [place] 35 degrees GEMUSE ECG Interpretation Normal sinus rhythm Left axis deviation Septal infarct (cited on or before 06-OCT-2024) Abnormal ECG When compared with ECG of 07-OCT-2024 01:29, No significant change was found Confirmed by MD BASILIA, NELL ([id number]) on 10/30/2024 4:12:51 PM GEMUSE 10/29/2024 7:53 PM EDT 10/30/2024 4:12 PM EDT us Nicki Pichardo MD ECG ORDERABLES Final Result GEMUSE * XR Chest 2 Views (10/29/2024 6:44 PM EDT) Only the most recent of3 resultswithin the time period is included. Anatomical Region Laterality Modality Body Radiographic Xiomy ging 10/30/2024 9:34 AM EDT Impressions 10/30/2024 9:34 AM EDT No acute findings. -------- FINAL REPORT -------- Dictated By: Amador Valerio Dictated Date: 10/30/2024 09:34 ET Assigned Physician: Amador Valerio Reviewed and Electronically Signed By: Amador Valerio Signed Date: 10/30/2024 09:34 ET Workstation ID: [id number] Transcribed By: Self Edit Transcribed Date: 10/30/2024 [...] Signed Date: 10/30/2024 09:34 ET Workstation ID: [id number] Transcribed By: Self Edit Transcribed Date: 10/30/2024 09:34 ET us Nicki Pichardo MD IMG XR PROCEDURES Final Result * (ABNORMAL) CBC auto differential (10/29/2024 6:03 PM EDT) Only the most recent of5 resultswithin the time period is included. WBC 9.5 4.8 - 10.8 K/mcL LAB HEMETOLOGY METHOD 10/29/2024 7:[facility] RBC 4.00(L) 4.50 - 5.50 M/mcL LAB HEMETOLOGY METHOD 10/29/2024 7:22 [facility] Hemoglobin 12.4(L) 13.5 - 17.5 g/dL LAB HEMETOLOGY METHOD 10/29/2024 7:22 PM [facility] Hematocrit 36.5(L) 42.0 - 54.0 % LAB HEMETOLOGY METHOD 10/29/2024 7:22 PM [facility] MCV 91.3 79.0 - 98.0 FL LAB HEMETOLOGY METHOD 10/29/2024 7:22 PM [facility] MCH 31.0 27.0 - 32.0 pcg LAB HEMETOLOGY METHOD 10/29/2024 7:22 PM [facility] MCHC 34.0 32.0 - 37.0 g/dL LAB HEMETOLOGY METHOD 10/29/2024 7:22 PM [facility] RDW 12.9 11.0 - 15.0 % LAB HEMETOLOGY METHOD 10/29/2024 7:22 PM [facility] Platelets 182 130 - 400 K/mcL LAB HEMETOLOGY METHOD 10/29/2024 7:22 PM [facility] MPV 12.9(H) 7.0 - 11.0 FL LAB HEMETOLOGY METHOD 10/29/2024 7:22 PM [facility] NRBC 0.0 <1.0 % LAB HEMETOLOGY METHOD 10/29/2024 7:22 PM EDT [facility] NRBC Absolute 0.00 <0.10 K/mcL LAB HEMETOLOGY METHOD 10/29/2024 7:22 PM [facility] Neutrophils Relative 46.3 % LAB HEMETOLOGY METHOD 10/29/2024 7:22 PM [facility] Lymphocytes Relative 42.4 % LAB HEMETOLOGY METHOD 10/29/2024 7:22 PM [facility] Monocytes Relative 7.4 % LAB HEMETOLOGY METHOD 10/29/2024 7:22 PM [facility] Eosinophils Relative 2.1 % LAB HEMETOLOGY METHOD 10/29/2024 7:22 PM [facility] Basophils Relative 1.5 % LAB HEMETOLOGY METHOD 10/29/2024 7:22 PM [facility] Immature Granulocytes Relative 0.3 % LAB HEMETOLOGY METHOD [facility]/29[facility]24 7[facility] Neutrophils Absolute 4.37 1.50 - 7.00 K/mcL LAB HEMETOLOGY METHOD 10/29/2024 7:22 PM [facility] Lymphocytes Absolute 4.01 1.00 - 5.00 K/mcL LAB HEMETOLOGY METHOD 10/29/2024 7:22 PM EDT [facility] Monocytes Absolute 0.70 0.20 - 1.00 K/mcL LAB HEMETOLOGY METHOD 10/29/2024 7:22 PM EDT [facility] Eosinophils Absolute 0.20 0.00 - 0.50 K/mcL LAB HEMETOLOGY METHOD 10/29/2024 7:22 PM [facility] Basophils Absolute 0.14 0.00 - 0.20 K/mcL LAB HEMETOLOGY METHOD 10/29/2024 7:22 PM EDT [facility] Immature Granulocytes Absolute 0.03 0.00 - 0.03 K/mcL LAB HEMETOLOGY METHOD 10/29/2024 7:22 PM EDT [facility] Blood Venous blood specimen / Unknown Venipuncture / Unknown 10/29/2024 6:03 PM EDT 10/29/2024 7:13 PM EDT Nicki Pichardo MD LAB BLOOD ORDERABLES Final Resul t [facility] [address] [place] [address], * (ABNORMAL) Venous blood gas (10/29/2024 6:03 PM EDT) Only the most recent of2 resultswithin the time period is included. pH, Antoni 7.39 7.32 - 7.42 pH 10/29/2024 7:14 PM EDT [facility] pCO2, Antoni 42 41 - 51 mmHg 10/29/2024 7:14 PM EDT [facility] pO2, Antoni 47(H) 25 - 40 mmHg 10/29/2024 7:14 PM EDT [facility] HCO3, Venous 24.6 22.0 - 26.0 mmol/L 10/29/2024 7:14 PM EDT [facility] O2 Sat, Antoni 77.8 % 10/29/2024 7:14 PM EDT [facility] Base Excess, Antoni 0.3 -2.0 - 2.0 mmol/L 10/29/2024 7:14 PM EDT [facility] Blood Venous blood specimen / Unknown Venipuncture / Unknown 10/29/2024 6:03 PM EDT 10/29/2024 7:11 PM EDT Nicki Pichardo MD LAB BLOOD ORDERABLES Final Resul t [facility] [address] [place] [address], * (ABNORMAL) Basic Metabolic Panel (BMP) (10/29/2024 6:03 PM EDT) Only the most recent of2 resultswithin the time period is included. Sodium 135 133 - 145 mmol/L LAB [...] mg/dL LAB CHEMISTRY METHOD 10/29/2024 8:08 PM EDT [facility] Blood Venous blood specimen / Unknown Venipuncture / Unknown 10/29/2024 6:03 PM EDT 10/29/2024 7:13 PM EDT us Nicki Pichardo MD LAB BLOOD ORDERABLES Final Resul t [facility] [address] [place] [address], [place] [phone] * XR Knee 4+ Views Right (10/10/2024 12:27 PM EDT) Anatomical Region Laterality Modality Lower Extremities, Knee Right Radiogra phic Imaging 10/10/2024 12:5 0 PM EDT Impressions 10/10/2024 12:52 PM EDT FINDINGS/IMPRESSION: Mild degenerative changes. Prominent patellar enthesophytes with prepatellar soft tissue swelling. No acute fracture. Anatomic alignment. Nonspecific small circumscribed soft tissue density in the dorsal soft tissues. -------- FINAL REPORT -------- Dictated By: Janey Ji Dictated Date: 10/10/2024 12:50 ET Assigned Physician: Janey Ji Reviewed and Electronically Signed By: Janey Ji Signed Date: 10/10/2024 12:52 ET Workstation ID: [id number] Transcribed By: Self Edit Transcribed Date: 10/10/2024 12:50 ET Narrative 10/10/2024 12:52 PM EDT XR KNEE 4+ VIEWS RIGHT INDICATION: RECENT TRAUMA, KNEE TECHNIQUE: XR KNEE 4+ VIEWS RIGHT COMPARISON: No priors available. Procedure Note Janey Ji MD - 10/10/2024 XR KNEE 4+ VIEWS RIGHT INDICATION: RECENT TRAUMA, KNEE TECHNIQUE: XR KNEE 4+ VIEWS RIGHT COMPARISON: No priors available. IMPRESSION: FINDINGS/IMPRESSION: Mild degenerative changes. Prominent patellarenthesophytes with prepatellar soft tissue swelling. No acute fracture.Anatomic alignment. Nonspecific small circumscribed soft tissue densityin the dorsal soft tissues. -------- FINAL REPORT -------- Dictated By: Janey Ji Dictated Date: 10/10/2024 12:50 ET Assigned Physician: Janey Ji Reviewed and Electronically Signed By: Janey Ji Signed Date: 10/10/2024 12:52 ET Workstation ID: [id number] Transcribed By: Self Edit Transcribed Date: 10/10/2024 12:50 ET Anamika RAJAN IMG XR PROCEDURES Final Re sult * (ABNORMAL) Manual differential (10/07/2024 5:19 AM EDT) Only the most recent of2 resultswithin the time period is included. Neutrophils % 39.0 % LAB HEMETOLOGY METHOD 10/07/2024 6:17 AM [facility] Lymphocytes % 50.0 % LAB HEMETOLOGY METHOD 10/07/2024 6:17 AM [facility] Reactive Lymphocyte 3.00 % LAB HEMETOLOGY METHOD 10/07/2024 6:17 AM [facility] Monocytes % 4.0 % LAB HEMETOLOGY METHOD 10/07/2024 6:17 AM [facility] Eosinophils % 1.0 % LAB HEMETOLOGY METHOD 10/07/2024 6:17 AM [facility] Basophils % 3.0 % LAB HEMETOLOGY METHOD 10/07/2024 6:17 AM [facility] Neutrophils Absolute Manual 4.10 1.50 - 7.00 K/mcL LAB HEMETOLOGY METHOD 10/07/2024 6:17 AM [facility] Lymphocytes Absolute 5.25(H) 1.00 - 5.00 K/mcL LAB HEMETOLOGY METHOD 10/07/2024 6:17 AM [facility] Reactive Lymph Abs Manual 0.32(H) 0.00 - 0.00 lym LAB HEMETOLOGY METHOD 10/07/2024 6:17 AM EDT [facility] Monocytes Absolute Manual 0.42 0.20 - 1.00 K/mcL LAB HEMETOLOGY METHOD 10/07/2024 6:17 AM EDT [facility] Eosinophils Absolute Manual 0.11 0.00 - 0.50 K/mcL LAB HEMETOLOGY METHOD 10/07/2024 6:17 AM EDT [facility] Basophils Absolute Manual 0.32(H) 0.00 - 0.20 K/mcL LAB HEMETOLOGY METHOD 10/07/2024 6:17 AM EDT [facility] Rbc Morphology Consistent with indices Consistent with indices, Normal for Glendo LAB HEMETOLOGY METHOD 10/07/2024 6:17 AM EDT [facility] Comment:RBC: Morphology agre es with CBC Platelet Morphology - WAM See Note(A) Normal LAB HEMETOLOGY METHOD 10/07/2024 6:17 AM EDT [facility] Comment:PLT: Large platelets seen Blood Venous blood specimen / Unknown Venipuncture / Unknown 10/07/2024 5:19 AM EDT 10/07/2024 5:43 AM EDT Clemente Downey MD LAB BLOOD ORDERABLES Final Result [facility] [address] [place] [address], * Magnesium (10/07/2024 5:19 AM EDT) Only the most recent of4 resultswithin the time period is included. Magnesium 1.9 1.9 - 2.6 mg/dL LAB CHEMISTRY METHOD 10/07/2024 6:04 AM EDT [facility] Blood Venous blood specimen / Unknown Venipuncture / Unknown 10/07/2024 5:19 AM EDT 10/07/2024 5:43 AM EDT Tiffanie RAJAN LAB BLOOD ORDERABLES Final R esult Performing Organization Address City/[facility]/ZIP Co de Phone Number [facility] [address] [place] [address], [place] [phone] * Beta hydroxybutyrate (10/06/2024 11:04 PM EDT) Only the most recent of2 resultswithin the time period is included. [facility] Beta-Hydroxybu tyrate 2.3 0.2 - 2.8 mg/dL LAB CHEMISTRY METHOD 10/07/2024 12:34 AM EDT [facility] Blood Venous blood specimen / Unknown Venipuncture / Unknown 10/06/2024 11:04 PM EDT 10/07/2024 12:01 AM EDT us Silvano Hunter MD LAB BLOOD ORDERABLES Final Resul t Performing Organization Address [facility] Co de Phone Number [facility] [address] [place] [address], [place] [phone] * Prolactin (10/06/2024 11:04 PM EDT) [facility] Prolactin 11.20 2.50 - 17.40 ng/mL LAB CHEMISTRY METHOD 10/07/2024 5:33 AM EDT [facility] Blood Venous blood specimen / Unknown Venipuncture / Unknown 10/06/2024 11:04 PM EDT 10/07/2024 12:01 AM EDT us Tiffanie RAJAN LAB BLOOD ORDERABLES Final R esult Performing Organization Address City/[facility]/ZIP Co de Phone Number [facility] [address] [place] [address], [place] [phone] * Levetiracetam level (10/06/2024 11:04 PM EDT) [facility] Levetiracetam 3.5 3.0 - 60.0 ug/mL 10/09/2024 6:03 AM EDT [facility] Comment: Steady state trough serum or plasma levels following doses of 1000 to 3000 mg/Day: 3 to 37 ug/mL. The same dosage regimen will typically result in peak levels of 10 to 60 ug/mL, at approximately 1.5 hours post dose. If applicable, any drug confirmation testing reported here was developed and the performance characteristics determined by [facility]. This confirmation testing has not been cleared or approved by the FDA. The laboratory is regulated under CLIA as qualified to perform high-complexity testing. This test is used for patient testing purposes. It should not be regarded as investigational or for research. Test performed at [facility], [address] , [place] [address] Lala Rogel MD, PhD - [employer] Blood Venous blood specimen / Unknown Venipuncture / Unknown 10/06/2024 11:04 PM EDT 10/07/2024 12:01 AM EDT us Silvano Hunter MD LAB BLOOD ORDERABLES Final Resul t [facility] [address] [place] [address] * B-type natriuretic peptide (10/06/2024 11:04 PM EDT) Only the most recent of2 resultswithin the time period is included. BNP 6 <=100 pcg/mL LAB CHEMISTRY METHOD 10/07/2024 12:33 AM EDT [facility] Blood Venous blood specimen / Unknown Venipuncture / Unknown 10/06/2024 11:04 PM EDT 10/07/2024 12:01 AM EDT us Silvano Hunter MD LAB BLOOD ORDERABLES Final Resul t [facility] [address] [place] [address], [place] [phone] * (ABNORMAL) Lipase (10/06/2024 11:04 PM EDT) Only the most recent of3 resultswithin the time period is included. Lipase 93(H) 13 - 75 unit/L LAB CHEMISTRY METHOD 10/07/2024 12:34 AM EDT [facility] Blood Venous blood specimen / Unknown Venipuncture / Unknown 10/06/2024 11:04 PM EDT 10/07/2024 12:01 AM EDT Silvano Hunter MD LAB BLOOD ORDERABLES Final Resul t Performing Organization Address [facility]/ZIP Co de Phone Number [facility] [address] [place] [address], [place] [phone] * (ABNORMAL) Hemoglobin A1c (10/06/2024 11:04 PM EDT) Pathologist [facility] Hemoglobin A1C 13.0(H) <6.5 % LAB CHEMISTRY METHOD 10/07/2024 10:39 AM EDT [facility] Mean Bld Glu Estim. 326 mg/dL LAB CHEMISTRY METHOD 10/07/2024 10:39 AM EDT [facility] Blood Venous blood specimen / Unknown Venipuncture / Unknown 10/06/2024 11:04 PM EDT 10/07/2024 12:01 AM EDT Clemente Downey MD LAB BLOOD ORDERABLES Final Result Performing Organization Address City/[facility]/ZIP Co de Phone Number [facility] [address] [place] [address], [place] [phone] * (ABNORMAL) Comprehensive metabolic panel (10/06/2024 11:04 PM EDT) Only the most recent of3 resultswithin the time period is included. Sodium 137 133 - 145 mmol/L LAB CHEMISTRY METHOD 10/07/2024 12:34 AM EDT [facility] Potassium 4.6 3.5 - 5.5 mmol/L LAB CHEMISTRY METHOD 10/07/2024 12:34 AM [facility] Comment:Hemolysis present Chloride 105 96 - 110 mmol/L LAB CHEMISTRY METHOD 10/07/2024 12:34 AM [facility] CO2 26 21 - 32 mmol/L LAB CHEMISTRY METHOD 10/07/2024 12:34 AM [facility] Anion Gap 6 3 - 11 LAB CHEMISTRY METHOD 10/07/2024 12:34 AM [facility] Glucose 242(H) 70 - 100 mg/dL LAB CHEMISTRY METHOD 10/07/2024 12:34 AM [facility] BUN 29(H) 5 - 25 mg/dL LAB CHEMISTRY METHOD 10/07/2024 12:34 AM [facility] Creatinine 1.03 0.70 - 1.30 mg/dL LAB CHEMISTRY METHOD 10/07/2024 12:34 AM [facility] eGFR 87 >=60 mL/min/1. 73m2 LAB CHEMISTRY METHOD 10/07/2024 12:34 AM [facility] Comment:Calculation based on the Chronic Kidney Disease Epidemiology Collaboration (CKD-EPI) equation refit without adjustment for race. BUN/Creatinine Ratio 28.2 LAB CHEMISTRY METHOD 10/07/2024 12:34 AM [facility] Calcium 8.9 8.5 - 10.5 mg/dL LAB CHEMISTRY METHOD 10/07/2024 12:34 AM [facility] AST (SGOT) 40 10 - 42 unit/L LAB CHEMISTRY METHOD 10/07/2024 12:34 AM [facility] Comment:Hemolysis present ALT (SGPT) 40 10 - 60 unit/L LAB CHEMISTRY METHOD 10/07/2024 12:34 AM [facility] Alkaline Phosphatase 168(H) 42 - 121 unit/L LAB CHEMISTRY METHOD 10/07/2024 12:34 AM [facility] Total Protein 6.9 6.0 - 8.0 g/dL LAB CHEMISTRY METHOD 10/07/2024 12:34 AM EDT [facility] Albumin 3.3 3.2 - 5.0 g/dL LAB CHEMISTRY METHOD 10/07/2024 12:34 AM EDT [facility] Total Bilirubin 0.4 0.0 - 1.4 mg/dL LAB CHEMISTRY METHOD 10/07/2024 12:34 AM EDT [facility] Blood Venous blood specimen / Unknown Venipuncture / Unknown 10/06/2024 11:04 PM EDT 10/07/2024 12:01 AM EDT us Silvano Hunter MD LAB BLOOD ORDERABLES Final Resul t Performing Organization Address City/[facility]/ZIP Co de Phone Number [facility] [address] [place] [address], * (ABNORMAL) POC glucose manually resulted (09/02/2024 3:16 PM EDT) Only the most recent of2 resultswithin the time period is included. Glucose POC 269(A) 70 - 110 mg/dL Blood Capillary blood specimen / Unknown 09/02/2024 3:16 PM EDT us Juan Jose Kee MD POINT OF CARE TEST ENTER/EDIT ORDERABLES Final Result * (ABNORMAL) Osmolality (09/02/2024 1:55 PM EDT) Osmolality Day 308(H) 280 - 300 mOsm/kg LAB CHEMISTRY METHOD 09/02/2024 4:24 PM EDT [facility] Blood Venous blood specimen / Unknown Venipuncture / Unknown 09/02/2024 1:55 PM EDT 09/02/2024 1:58 PM EDT us Juan Jose Kee MD LAB BLOOD ORDERABLES Final Re sult NANCY DUARTE [place] ([facility] [address] [place] [address], from Last 3 Months Insurance [place]ICA[place] - [place] [employer] [place] [phone] Advance Directives * Full Code - Default (Latest Code Status on File) Date Activated Date Inactivated Comments 10/07/2024 7:52 AM 10/07/2024 2:19 PM This is orde r is used when code status has not been discussed with the patient, or code status is otherwise unknown/unconfirmed To update the patient's code status, place a code status order. Do not modify or discontinue any currently active code status orders. * Full Code - Confirmed Date Activated Date Inactivated Comments 10/07/2024 4:56 AM 10/07/2024 7:[address] atus was ascertained in the following way: Code status discussion: discussion with patient To update the patient's code status, place a code status order. Do not modify or discontinue any currently active code status orders. * Full Code - Default Date Activated Date Inactivated Comments 10/07/2024 3:29 AM 10/07/2024 4:56 AM This is orde r is used when code status has not been discussed with the patient, or code status is otherwise unknown/unconfirmed To update the patient's code status, place a code status order. Do not modify or discontinue any currently active code status orders. Care Teams Associate Chief Nurse Relationship Specialty Start Date End Date Ramone Miller MD [address] [place] [address] PCP - General Internal Medicine 07/29/24
--- OUTSIDE RECORDS SUMMARY | 2024-11-04 07:54 | XMS_ITS | Encounter Summary ---
Author Organization [facility] Address [address] [place] [address] Care Team Providers Care Client Account Specialist Name Role Phone Ramone Miller MD Primary Care Provider Reason for Referral * Consultation (Routine) - Closed Specialty Diagnoses / Procedures Referred By Sundeep t Referred To Contact Cardiology Diagnoses Cerebral infarction, unspecified (CMS/HCC V24, CMS/HCC V28) Ramone Miller MD [address] [place] [address] Phone: tel: fax: Ed Hines MD [address] [facility] [place] [address] Phone: tel: fax: Referral ID Status Reason Start Date Expiration Date V isits Requested Visits Authorized [id number] Closed Specialty Services Required 10/13/2024 10/13/2025 6 6 Reason for Visit * Reason Onset Date Comments Referral 10/13/2024 Cardiovascular Encounter Details Date Type Department Care Team (Late st Contact Info) Description 10/13/2024 Telephone Adult Medicine [facility] [address] [place] [address] Ramone Miller MD [address] [place], [place] Social History Tobacco Use Types Packs/Day Years [...] care for your loved ones. For example, maternal child nurse or elderly care for an older adult? [...] on file documented as of this encounter Progress Notes * Tiffanie Aguirre - 10/13/2024 12:37 PM EDT What insurance does the patient have today? Payor: @[email or web address]/@[email or web address] [employer] Medicare Advantage Referrals cannot be processed if the insurance is not accurate. If the insurance listed above is NO BILLING INFORMATION FOUND FOR THIS ENCOUNTER then the patients correct insurance must be obtainedand registered in [facility] or their referral can not be processed. Name of person calling to request this referral? [facility] Referred To Provider (Include first and last name): Dr Cristhian Keller NPI (if known): [id number] Order/Specialty requested cardiovascular Chief Complaint (Note: This is not a body part or a procedure): Dx I63.9 Has the patient seen provider for this problem/Dx before? 09/28/24 Referred To Provider Address: [address] [place] [address] [address] [place] [address] Referred To Provider Referred To Provider Does patient have an appointment scheduled?: yes If yes, what is the date of the appointment?: 09/28/24 and 01/26/25 Is this a retro request? yes Number of visits requested: 6 Is this appointment related to: MVA or worker compensation? no documented in this encounter Plan of Treatment Upcoming Encounters Date Type Department Care Team (Late st Contact Info) Description 11/11/2024 10:30 AM EDT Office Visit Lung Screening Program - [address] [address] Clemente Cortés PA [address] [place] [phone] 11/11/2024 11:00 AM EDT Appointment [facility] CT Scan [address] [place] [id number] 12/17/2024 12:30 PM EDT Appointment [facility] Endoscopy [address] [place] [phone] Milind Zheng MD [address] [address] Scheduled Referrals Name Type Priority Associated Diagnoses Order Schedule Ambulatory referral to Cardiovascular Surgery Outpatient Referral Routine Cerebral infarction, unspecified ([facility] V24, [facility] V28) Expected: 10/13/2024, Expires: 10/13/2025 documented as of this encounter Visit Diagnoses Diagnosis Cerebral infarction, unspecified (CMS/HCC V24, CMS/[facility] V28)- Primary documented in this encounter Additional Health Concerns Assessment Noted Time PHQ-9 Depression Total Score: 1 09/03/19 11:39 AM EDT documented as of this encounter Care Teams Client Account Specialist Relationship Specialty Start Date End Date Ramone Miller MD [address] [place] [address] PCP - General Internal Medicine 07/29/24 documented as of this encounter
== END ==
LOC: HO.CARD 07:51
PROVIDERS: Visit Provider Internal Medicine
DX: I44.30 Unspecified atrioventricular block (principal)
CPT/HCPCS: 93306

== ENCOUNTER → 2024-11-04 07:53 | Outpatient (BNV) | payer OTHER, MEDICAID, SELFPAY | PROVIDERS: Visit Provider Internal Medicine | DX: I51.7 Cardiomegaly (principal) | CPT/HCPCS: 93306 ==

== ENCOUNTER 2024-11-25 13:21 | Outpatient (AMB) | payer OTHER, MEDICAID, SELFPAY ==
--- NOTE | 2024-11-25 14:02 | MHC.OFFVIS ---
Intake Visit Reasons: ENP-Seizure Disorder Allergies No Known Allergies (No Known Allergies*) Allergy (Verified 02/28/21 14:37) HPI Comments Details: 54-year-old man who speaks [place]. He is not sure why he is referred here for neuro f/u. He has a history of diabetes, hypertension, hyperlipidemia, coronary artery disease, history of CVA who was seen in consultation at [facility] in April 2021 with complaints of an episode of weakness, lethargy and a transient episode where the patient was not answering his family for few minutes. He was recently diagnosed with seizure last week when he visited his family in [place].? He was scheduled to have an EEG which did not get done because he left the state.He had not been started on medications for this. ? Patient reports that he most likely had a seizure at home again.? He felt the same.? He was postictal when he arrived to the ED.? He had lost control of bladder and bowel during the episode. ?He is usually incontinent of bowel at baseline. When he arrived to the ED.? He reports that? he also experienced substernal pressure-like chest pain right before the episode occurred.? ? On waking up he had right-sided weakness on the upper and lower extremity. ? No loss of speech, and no droopiness of the face.Postictal state on arrival to the ED, suggestive possible seizure CT head and CTA head and neck angiogram showed no significant abnormality started on Keppra 750 mg b.i.d..? He has not had a seizure in 2 years.? He had moved back to [place] and is now back in has a pacemaker insertion his area and was therefore referred for neurological follow-up. ?He has a past historyof CVA, right-sided weakness. His records indicate that he had a CTA of the head and neck on 08/09/[address] and an MRI on 08/10/2023 but no acute infarct. 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 [facility] Medical History (Updated 11/25/24 @ 14:54 by Cesar Knowles MD) Right sided weakness Goiter High serum luteinizing hormone (LH) Tobacco use disorder Essential hypertension Type 2 diabetes mellitus with unspecified complications Hyperlipidemia LDL goal <70 Chronic diarrhea Normal echocardiogram History of myocardial infarction High cholesterol High cholesterol Arthritis HTN (hypertension) Depression Anxiety Diabetes Surgical History H/O cardiac catheterization Hx of foot surgery History of appendectomy Family History Mother Alzheimer disease HTN (hypertension) Father Old age Brother Diabetes mellitus Maternal Grandmother Diabetes mellitus Heart disease Social History Household Members: Family and Friend(s) Household Members Other:: Roommate Housing: House Do you presently have visiting nurse or other home services: No Alcohol intake: former Year quit: 2019 Patient Tobacco Use Status: Former Tobacco user Tobacco use type: Cigarette Years Smoked: 35 +/- Second Hand Smoke Exposure: No Substance Use Type: Crack/Cocaine and Other Advance Directives Date on File: 11/30/20 service: No Current occupational status: unemployed and disabled Review of Systems Const Details: Sleep:? Difficulty getting to sleep?yes.? Difficulty maintaining sleep?denies?.? Urge to move legs?denies.? Teeth grinding?denies.? Shouting or Kicking during sleep?denies.? Abnormal behavior during sleep?denies.? Excessive sleep?denies.? Snoring?denies.? Daytime sleepiness?denies.? ?? General/Constitutional:? Change in appetite?denies.? Chills?denies.? Fatigue?denies.? Fever?denies.? Weight gain?denies.? Weight loss?yes.? ?? Ophthalmologic:? Blurred vision?yes.? Diminished visual acuity?denies.? ?? ENT:? Stuffiness?denies.? Decreased hearing?denies.? Dry mouth?denies.? Ear pain?denies.? Nosebleed?denies.? Ringing in the ears?denies.? Sinus pain?denies.? Sore throat?denies.? Swollen glands?denies.? ?? Endocrine:? Cold intolerance?denies.? Excessive thirst?denies.? Frequent urination?denies.? Heat intolerance?denies.? ?? Respiratory:? Shortness of breath?denies.? Chest pain?denies.? Cough?denies.? ?? Breast:? Breast lump?denies.? Nipple discharge?denies.? ?? Cardiovascular:? Chest pain at rest?yes.? Chest pain with exertion?denies.? Claudication?denies.? Dizziness?denies.? Fluid accumulation in the legs?denies.? Irregular heartbeat?denies.? Palpitations?denies.? ?? Gastrointestinal:? Abdominal pain?denies.? Constipation?denies.? Diarrhea?denies.? Difficulty swallowing?denies.? Heartburn?denies.? Nausea?denies.? Rectal bleeding?denies.? ?? Hematology:? Easy bruising?denies.? Prolonged bleeding?denies.? ?? Genitourinary:? Frequent urination?yes.? Urgency?denies.? Incontinence?denies.? Erectile Dysfunction?denies.? ?? Musculoskeletal:? Neck pain?denies.? Back pain?yes.? Muscle aches?denies.? Painful joints?denies.? Sciatica?denies.? Weakness?denies.? ?? Podiatric:? Difficulty walking?denies.? Foot numbness?denies.? ?? Neurologic:? Difficulty swallowing?yes.? Balance difficulty?denies.? Coordination?normal.? Difficulty speaking?denies.? Dizziness?denies.? Fainting?denies.? Gait abnormality?denies.? Headache?denies.? Loss of strength?denies.? Loss of use of extremity?denies.? Low back pain?denies.? Memory loss?denies.? Seizures?yes.? Tics?denies.? Tingling/Numbness?denies.? Transient loss of vision?denies.? Tremor?admits.? ?? Psychiatric:? Anxiety?yes.? Auditory/visual hallucinations?denies.? Delusions?denies.? Depressed mood?denies.? Stressors?denies.? Substance abuse?denies.? Suicidal thoughts?denies.? ?? Physical Exam Neuro Other: ?Mini Mental Status Exam Level of Consciousness:?Alert.? Orientation:?Knows correct year, month, date, day and season.?Knows correct city, county and state. Knows correct location and floor.? Registration:?Able to register 3 objects.? Attention:?Serial 7's performed accurately.? Recall:?Able to recall 3 out of 3 objects.? Language:?Normal spontaneous speech, fluency, repetition, naming, comprehension, reading, and writing.? Total Score:?30/30.? Neurological Abnormal neurological findings:??none.? Mental Status:?Alert and oriented X 3.?Normal attention, orientation, memory, and affect.? Cranial Nerves:?Pupils are equal, round and reactive to light. Fundoscopy shows normal disc bilaterally. External occular muscles are intact. Visual monzon are full, no ptosis. Face is symmetrical, no facial weakness or droop. Facial sensations are normal. Tongue protrudes in midline. Palate elevates symmetrically. Shoulder shrugging is normal.? Motor Examination:?Normal muscle tone, bulk and strength.?No atrophy or fasciculations.?No drift of the extended upper extremities.?Deep tendon reflexes are 2+.?Plantars are flexor.? Motor Strength:? Proximal Muscles (out of 5):?5 Distal Muscles (out of 5):?5 Neck Flexors (out of 5):?5 Neck Extensors (out of 5):?5 Deltoid (out of 5):?5 Biceps (out of 5):?5 Triceps (out of 5):?5 Serratus Anterior (out of 5):?5 Wrist Extensors (out of 5):?5 APB (out of 5):?5 Finger Spread (out of 5):?5 Ileopsoas (out of 5):?5 Quadriceps (out of 5):?5 Hamstrings (out of 5):?5 Tibialis Anterior (out of 5):?5 Peronei (out of 5):?5 EDB (out of 5):?5 Gastrocnemius (out of 5):?5 Straight Leg Raising:?90 degrees.? Sensory Exam:?Normal light touch, temperature, pinprick, vibration and joint-position sensations.?Rhomberg sign is absent.? Coordination:?No ataxia,?no titubation,?pegevc-az-ltyv, wecq-biok-cfnq test, and rapid alternating movements were normal.? Gait Exam:?Within normal limits.? Cerebellar Signs:?Fflvwc-tt-lmbt and vypl-tv-rhqq is normal.?No dysdiadochokinesia.? Extrapyramidal System:?No tremor or?rigidity, normal facial expressions.?No bradykinesia. No bradyphrenia. Normal arm swing and posture. No propulsion or retropulsion.? Speech:?Normal,?no dysphasia or dysarthria.? General Examination GENERAL APPEARANCE:??normal,?in no acute distress?,?normal,?in no acute distress.? HEAD:??normocephalic,?atraumatic.? EYES:??sclera non-icteric,?conjunctiva clear.? EARS:??auditory canal clear,?tympanic membrane intact, clear.? NOSE:??no lesions.? ORAL CAVITY:??gums normal,?mucosa moist,?no lesions.? THROAT:??clear.? NECK/THYROID:??no cervical lymphadenopathy,?thyroid normal,?neck supple, full range of motion,?no carotid bruit.? SKIN:??no rashes,?no significant birthmarks.? HEART:??S1, S2 normal,?no murmurs?,?S1, S2 normal,?no murmurs.? LUNGS:??clear anteriorly and posteriorly?,?clear anteriorly and posteriorly.? CHEST:??no gross rib deformity,?clear to auscultation.? BACK:??normal exam of spine.? MUSCULOSKELETAL:??normal.? EXTREMITIES:??no edema?,?no edema.? PERIPHERAL PULSES:??normal.? PSYCH:??alert, oriented,?cognitive function intact,?cooperative with exam?,?alert, oriented,?cognitive function intact,?cooperative with exam.? Assessment & Plan Assessment & Plan (1) Seizure disorder: Code(s): G40.909 - Epilepsy, unspecified, not intractable, without status epilepticus Category: Medical (2) Cerebrovascular accident: Code(s): I63.9 - Cerebral infarction, unspecified Category: Medical Plan Continue aspirin 81 mg a day, atorvastatin and Keppra 750 mg b.i.d.. Coding Level of Care Code New Pt Level 5 (18678) Diagnoses Seizure disorder G40.909 Cerebrovascular accident I63.9
--- NOTE | 2024-11-25 14:57 | MHC.OFFVIS ---
Intake Visit Reasons: ENP-Seizure Disorder Allergies No Known Allergies (No Known Allergies*) Allergy (Verified 02/28/21 14:37) [facility] Medical History (Updated 11/25/24 @ 14:58 by Cesar Knowles MD) Right sided weakness Goiter High serum luteinizing hormone (LH) Tobacco use disorder Essential hypertension Type 2 diabetes mellitus with unspecified complications Hyperlipidemia LDL goal <70 Chronic diarrhea Normal echocardiogram History of myocardial infarction High cholesterol High cholesterol Arthritis HTN (hypertension) Depression Anxiety Diabetes Surgical History H/O cardiac catheterization Hx of foot surgery History of appendectomy Family History Mother Alzheimer disease HTN (hypertension) Father Old age Brother Diabetes mellitus Maternal Grandmother Diabetes mellitus Heart disease Social History Household Members: Family and Friend(s) Household Members Other:: Roommate Housing: House Do you presently have visiting nurse or other home services: No Alcohol intake: former Year quit: 2020 Patient Tobacco Use Status: Former Tobacco user Tobacco use type: Cigarette Years Smoked: 36 +/- Second Hand Smoke Exposure: No Substance Use Type: Crack/Cocaine and Other Advance Directives Date on File: 11/30/20 service: No Current occupational status: unemployed and disabled Assessment & Plan Assessment & Plan (1) Seizure disorder: Code(s): G40.909 - Epilepsy, unspecified, not intractable, without status epilepticus Category: Medical (2) Cerebrovascular accident: Code(s): I63.9 - Cerebral infarction, unspecified Category: Medical Qualifiers: CVA mechanism: occlusion Precerebral and cerebral artery: middle cerebral artery Laterality of affected vessel: right Qualified Code(s): I63.511 - Cerebral infarction due to unspecified occlusion or stenosis of right middle cerebral artery Plan Continue current medications including Keppra 750 mg b.i.d. Coding Level of Care Code New Pt Level 5 (74723) Diagnoses Seizure disorder G40.909 Cerebrovascular accident (CVA) due to occlusion of right middle cerebral artery I63.511 CVA mechanism: occlusion Precerebral and cerebral artery: middle cerebral artery Laterality of affected vessel: right
== END 2024-11-25 15:20 | disposition home or self-care (01) ==
LOC: HO.HSM 13:22
PROVIDERS: PCP Family Medicine; Visit Provider Psychiatry & Neurology Neurology
DX: G40.909 Epilepsy, unspecified, not intractable, without status epilepticus (principal); I63.9 Cerebral infarction, unspecified; I63.511 Cerebral infarction due to unspecified occlusion or stenosis of right middle cerebral artery
CPT/HCPCS: 99203

== ENCOUNTER → 2025-01-24 14:27 | Outpatient (BNV) | payer MEDICARE, MEDICAID, SELFPAY | PROVIDERS: PCP Family Medicine; Visit Provider Internal Medicine | DX: I44.30 Unspecified atrioventricular block (principal); Z95.0 Presence of cardiac pacemaker | CPT/HCPCS: 93294 ==